=== PATIENT | male | born 1935 | race Caucasian/White ===

== ENCOUNTER 2019-10-08 22:26 | Emergency (ER) | payer MEDICARE, OTHER, SELFPAY ==
[2019-10-08 22:28] VITALS: BP 162/99; PULSE 101; RESP 16; TEMP 36.8; O2SAT 94; BMI 31.4
[2019-10-08 23:16] VITALS: BP 138/71; BP 141/74
--- NOTE | 2019-10-08 23:17 | ED.DCSUM_ITS ---
History of Present Illness Chief Complaint: Hypertension Informant: Patient Onset: Today Narrative: Patient is an 83-year-old male with medical history significant for [id number] diabetes that presents to the emergency department concern for elevated blood pressure. The patient has no history of hypertension. He bought a blood pressure wrist cuff from the pharmacy. He states that he took his blood pressure tonight because his also took hers. He states that it read 235/222. He was totally asymptomatic. He states he took it multiple times and both systolic and diastolic were in the 200s. He states that normally, his blood pressure runs about 1 20-1 30. He has had no chest pain, shortness of breath, headache, leg swelling, or other systemic symptoms. Prior similar symptoms: No Recent Illness/Hospitalization: No Past Medical History - Allergies and Home Meds Allergies/Adverse Reactions: Allergies hydromorphone [From Dilaudid] Allergy (Verified 10/08/19 22:31) NEEDS FOLLOW-UP lisinopril Allergy (Verified 10/08/19 22:32) Angioedema Penicillins Allergy (Verified 10/08/19 22:31) Rash Primary Care Physician: Julia Zayas,Out of [Primary Care Provider] - Prior records reviewed: Yes Past Medical History: - - Diabetes Surgical History: noncontributory Review of Systems General: Denies: Chills, Fever, Sweats Eyes: Denies: Visual changes - bilaterally, Diplopia ENT: Denies: Rhinorrhea, Sore throat Cardiovascular: Denies: Chest pain, Palpitations Respiratory: Denies: Dyspnea, Cough, Dyspnea on exertion Gastrointestinal: Denies: Abdominal pain, Nausea, Vomiting, Diarrhea, Melena, Hematochezia Genitourinary: Denies: Dysuria, Hematuria, Frequency Musculoskeletal: Denies: Back pain, Extremity Pain Skin: Denies: Rash, Wounds Neurological: Denies: Headache, Weakness, Numbness Physical Exam Vital Signs/Narrative: Vital Signs Temp Pulse Resp BP Pulse Ox 10/08/19 23:16 138/71 H 10/08/19 22:28 98.3 F 101 H 16 162/99 H 94 Inital Vital Signs reviewed: Yes General: Well nourished, Well developed, No Acute Distress Head: Normocephalic, Atraumatic Eyes: Perrl, EOMI ENT: Moist mucous membranes, No rhinorrhea Neck: Supple, Nontender Cardiovascular: Regular rate, Regular rhythm, No murmurs Respiratory: No distress, CTA bilaterally, Chest nontender Abdomen: Soft, Nontender, Nondistended, Normal bowel sounds Back: Nontender, Normal Inspection Extremities: Nontender, No edema Skin: Normal color, No rash Neurological: Alert, Oriented x3, Cranial nerves II-XII grossly intact, Normal Strength, Normal Sensation Psychological: Normal affect, Normal Mood Diagnostic/Tx/Re-eval - Medical Decision Making The patient presents due to concern for elevated blood pressure on a portable wrist cuff. I did repeat it. His blood pressure was obviously elevated with this cuff. He was totally asymptomatic no. My suspicion is for cuff malfunction. Manual blood pressures were obtained of both arms. He was 141 systolic on the left, 138 systolic on the right. I do feel he has mild hypertension just because he is in the hospital and concerned about his blood pressure. He has absolutely no symptoms. The patient is agreeable to not using this cuff anymore. He is going to follow-up with his doctor in a week or return with any worsening symptoms. Impression 1. Normal blood pressure ED Disposition - Plan for ED Patient: Instructions: Taking Your Blood Pressure Referrals: [facility] Doctor,Out of [Primary Care Provider] -
== END 2019-10-08 23:23 | disposition home or self-care (01) ==
LOC: ED 23:20
PROVIDERS: Emergency Provider Emergency Medicine; PCP Family Medicine
DX: I10 Essential (primary) hypertension (principal)
CPT/HCPCS: 99282

== ENCOUNTER 2020-05-17 09:04 | Emergency (ER) | payer MEDICARE, OTHER, SELFPAY ==
[2020-05-17 09:06] VITALS: BP 164/70; PULSE 86; RESP 14; TEMP 35.5; O2SAT 95; BMI 31.2
[2020-05-17 09:27] VITALS: PULSE 81; RESP 18; O2SAT 95
--- NOTE | 2020-05-17 09:45 | EKG12_ITS ---
Test Reason : NAUSEA/VOMITING Blood Pressure : / mmHG Vent. Rate : 079 BPM Atrial Rate : 079 BPM P-R Int : 246 ms QRS Dur : 102 ms QT Int : 382 ms P-R-T Axes : 043 -45 063 degrees QTc Int : 438 ms Sinus rhythm with 1st degree A-V block Left anterior fascicular block Minimal voltage criteria for LVH, may be normal variant Abnormal ECG Confirmed by ERNESTO CABELLO, BERT ([id number]), index editor PARMINDER BATES ([id number]) on 05/19/2020 10:32:14 AM Referred By: GENARO Confirmed By:BERT OROZCO MD
[2020-05-17] MEDS: Ondansetron 4 MG/2 ML Vial IV (09:52)
[2020-05-17] MEDS: 0.9% Normal Saline 1,000 ML 1000 ML IV (09:52)
[2020-05-17 10:28] LABS: Absolute Lymphocyte Count 2.16 X10^3/uL (0.83-4.51); Absolute Neutrophil Count 8.6 X10^3/uL (2.0-7.7); Basophil# 0.03 X10^3/uL; Basophil% 0.3 % (0-1); Eosinophil# 0.05 X10^3/uL; Eosinophils% 0.4 % (0-5); Hematocrit 41.4 % (40-54); Lymphocyte # 2.16 X10^3/ul (4.0); Lymphocyte % 18.7 % (19-41); Mean Corp Hgb Conc 31.4 g/dL (32-36); Mean Corpuscular Hgb 26.4 pg (27.0-32.0); Mean Corpuscular Volume 84.1 fL (80-94); Mean Platelet Vol. 11.1 fl (6.2-12.0); Monocyte# 0.62 X10^3/uL; Monocyte% 5.4 % (0-10); NRBC Flagged by Analyzer 0 % (0-5); Neutrophil # 8.63 X10^3/uL (2.7-7.7); Neutrophil % 74.5 % (47-70); Platelet Count 393 K/mm3 (150-450); RBC Distribution Width CV 15.9 % (11.6-14.6); RBC Distribution Width SD 48.7 fl (35.1-43.9); Red Blood Count 4.92 M/mm3 (4.6-6.2); White Blood Count 11.6 K/mm3 (4.4-11.0)
[2020-05-17 10:57] LABS: ALB/GLOB Ratio 0.9 RATIO (0.9-2.4); AST(SGOT) 31 U/L (15-37); Alanine Aminotransfer ALT/SGPT 54 U/L (16-61); Albumin, Serum 3.8 g/dL (3.2-5.0); Alkaline Phosphatase 39 U/L (45-117); Anion Gap 10 (5-15); BUN 17 mg/dL (7-18); BUN/Creat Ratio 11.2 RATIO (10-20); Calcium,Total 9.8 mg/dL (8.5-10.1); Chloride 104 mmol/L (98-107); Creatinine, Serum 1.52 mg/dL (0.70-1.30); EST Glomerular Filtration Rate 47 mL/min (>60); Est Glom Filt Rate - Afr Amer 57 mL/min (>60); Estimated Creatinine Clearance 41.61 ml/min; Globulin 4.2 g/dL (2.2-4.2); Glucose 196 mg/dL (74-106); Lipase 2796 U/L (73-393); Potassium 3.9 mmol/L (3.5-5.1); Sodium Level 138 mmol/L (136-145)
--- NOTE | 2020-05-17 11:13 | CT_ITS ---
STUDY: CT ABDOMEN AND PELVIS WITH CONTRAST REASON FOR EXAM: Male, 84 years old. vomiting RADIATION DOSAGE (If Supplied By Facility): CTDIvol = ( 16.69 ) mGy, DLP = ( 1450.40 ) mGycm TECHNIQUE: Transaxial images were obtained from the dome of the diaphragm to the symphysis pubis without oral contrast. 100 ML ISOVUE 370 was administered. Sagittal and coronal images were reconstructed. Individualized dose optimization techniques were used for this CT. COMPARISON: None. FINDINGS: The visualized lung bases are unremarkable. The visualized portions of the heart are within normal limits. Normal liver. There are surgical clips in the gallbladder fossa consistent with a prior cholecystectomy. Normal spleen. There is diffuse enlargement of the pancreas with sena-pancreatic edema suggesting acute pancreatitis. No loculated fluid collection to suggest pseudocyst or abscess. Normal bilateral adrenal glands. 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 1.5 cm exophytic cyst of the posterior aspect of the right kidney. Suspect bilateral nonobstructing renal stones. No hydronephrosis, ureteral stone, ureteral dilatation. Normal visualized stomach. Normal small intestine. There are multiple colonic diverticula consistent with diverticulosis. The appendix is visualized and appears normal. Normal abdominal aorta. Normal inferior vena cava. Normal retroperitoneum. Normal urinary bladder. Normal abdominal wall. Normal osseous structures. CT/Abdomen/Pelvis W IV Cont ONLY IMPRESSION: Suspect mild acute pancreatitis. Electronically Signed: Edil Ortiz MD at 12:02 EST Tel , Service support ,
[2020-05-17] MEDS: 0.9% Normal Saline 1,000 ML 999 ML IV (11:15)
--- NOTE | 2020-05-17 11:15 | ED.DCSUM_ITS ---
History of Present Illness Chief Complaint: Nausea/Vomiting/Diarrhea Informant: Patient, Significant Other - Abdominal Pain/Flank Pain Onset: Days Context: Gradual Onset Timing: Continuous - Nausea/Vomiting/Emesis GI Symptom: Nausea, Vomiting Narrative: Patient is an 84-year-old male presenting with persistent nausea that is now progressed into vomiting. Patient states 4 to 5 days ago he started developed nausea. He did not eat much. Last night patient self-induced vomiting and felt better for about an hour. He made himself vomit again. He notes overnight he did not sleep well. This morning he had a spontaneous episode of vomiting. He states which is water and bile. As he is continue to feel weak and not able to sip water and hemanth antoni he went to the urgent care. There his heart rate was 131 and he appeared dehydrated so it is recommended he come to the ER for further evaluation. Patient denies any associate abdominal pain, chest pain or difficulty breathing. He has had no reported fever or chills. He currently just feels queasy and dehydrated. Patient's had a hernia gallbladder surgery in the past. No other complaints at this time. Past Medical History - Allergies and Home Meds Allergies/Adverse Reactions: Allergies hydromorphone [From Dilaudid] Allergy (Verified 05/17/20 09:06) NEEDS FOLLOW-UP lisinopril Allergy (Verified 05/17/20 09:06) Angioedema Penicillins Allergy (Verified 05/17/20 09:06) Rash Primary Care Physician: Taye Lyons MD [Primary Care Provider] - Past Medical History: - - Diabetes, hyperlipidemia, GERD Surgical History: cholecystectomy, herniorrhaphy Lives: Spouse/ Significant Other Smoking Status: Current every day smoker Review of Systems General: Denies: Chills, Fever, Sweats Eyes: Denies: Visual changes - bilaterally, Diplopia ENT: Denies: Rhinorrhea, Sore throat Cardiovascular: Denies: Chest pain, Palpitations Respiratory: Denies: Dyspnea, Cough, Dyspnea on exertion Gastrointestinal: Reports: Nausea, Vomiting. Denies: Abdominal pain, Diarrhea, Melena, Hematochezia Genitourinary: Denies: Dysuria, Hematuria, Frequency Musculoskeletal: Denies: Back pain, Extremity Pain Skin: Denies: Rash, Wounds Neurological: Denies: Headache, Weakness, Numbness Physical Exam Vital Signs/Narrative: Vital Signs Temp Pulse Resp BP Pulse Ox 05/17/20 09:27 81 18 95 05/17/20 09:06 96 F L 86 14 164/70 H 95 Inital Vital Signs reviewed: Yes General: Well nourished, Well developed, No Acute Distress Head: Normocephalic, Atraumatic Eyes: Perrl, EOMI ENT: No rhinorrhea, Dry mucous membranes Neck: Supple, Nontender, No JVD Cardiovascular: Regular rate, Regular rhythm, No murmurs Respiratory: No distress, CTA bilaterally, Chest nontender Abdomen: Soft, Nontender, Nondistended, Normal bowel sounds. Negative for: Guarding, Rebound tenderness Back: Nontender, Normal Inspection Extremities: Nontender, No edema Skin: Normal color, No rash Neurological: Alert, Oriented x3, Cranial nerves II-XII grossly intact, Normal Strength, Normal Sensation Psychological: Normal affect, Normal Mood Diagnostic/Tx/Re-eval Clinical Impression(s) from Imaging Studies Abdomen/Pelvis CT 05/17/20 11:13 IMPRESSION: Suspect mild acute pancreatitis. Electronically Signed: Edil Ortiz MD at 12:02 EST Tel , Service support , Laboratory Data 05/17/20 05/17/20 05/17/20 09:15 09:15 12:15 WBC 11.6 H RBC 4.92 Hgb 13.0 Hct 41.4 MCV 84.1 MCH 26.4 L MCHC 31.4 L RDW Std Deviation 48.7 H RDW Coeff of Abdulaziz 15.9 H Plt Count 393 MPV 11.1 Immature Gran % (Auto) 0.700 Neut % (Auto) 74.5 H Lymph % (Auto) 18.7 L [place] % (Auto) 5.4 Eos % (Auto) 0.4 Baso % (Auto) 0.3 Absolute Neuts (auto) 8.6 H Absolute Lymphs (auto) 2.16 Nucleated RBC % 0 Sodium 138 Potassium 3.9 Chloride 104 Carbon Dioxide 24.0 Anion Gap 10 BUN 17 Creatinine 1.52 H Estim Creat Clear Calc 41.61 Est GFR (MDRD) Af Amer 57 L Est GFR (MDRD) Non-Af 47 L BUN/Creatinine Ratio 11.2 Glucose 196 H Calcium 9.8 Total Bilirubin 0.60 AST 31 ALT 54 Alkaline Phosphatase 39 L Troponin I < 0.015 Total Protein 8.0 Albumin 3.8 Globulin 4.2 Albumin/Globulin Ratio 0.9 Lipase 2796 H Urine Color Yellow Urine Clarity Clear Urine pH 5.0 Ur Specific [place] 1.015 Urine Protein 15 H Urine Glucose (UA) Normal Urine Ketones 5 H Urine Occult Blood Negative Urine Nitrite Negative Urine Bilirubin Negative Urine Urobilinogen Normal Ur Leukocyte Esterase Negative Urine RBC 0 SEEN Urine WBC 0 SEEN Ur Squamous Epith Cells 0 SEEN Urine Bacteria 0 SEEN Urine Mucus 0 SEEN - Rhythm Strip Rhythm Strip: Sinus Rhythm Rate: 79 Ectopy: None - EKG Initial EKG Interpretation: Sinus Rhythm, - - Normal sinus rhythm at a rate of 79 with first-degree AV block ID interval 246 QRS 102 Minimal voltage criteria for LVH Left anterior fascicular block Normal ST segments - Medical Decision Making Evaluated for concerns of dehydration, tachycardia at a urgent care and a couple days of nausea no vomiting. He denies any associate abdominal pain. Patient physical exam is pretty benign. He appears mildly dehydrated. He is given IV fluids. Lipase is elevated. On repeat exam patient does not have tenderness in his epigastric region. Will obtain CT of the abdomen pelvis for further evaluation of pancreatitis and make sure there is not an obstructive process causing it. Patient is given a second liter of IV fluids. He is feeling much better. He is also given IV Zofran initially. CT is consistent with mild pancreatitis. As patient symptoms are mild and he is tolerating p.o. he is a candidate for outpatient treatment. Patient states he does not want to be hospitalized. He will be discharged home to follow-up with his PCP tomorrow. He already has an appointment scheduled. He is given a prescription for Zofran. He is counseled on return precautions. Patient remains hemodynamically stable in the emergency room. He does have intermittent desaturation of 88 to 89% on pulse ox. Patient states that is normal for him. Patient then spontaneously will go up to 91% with good waveform. He will follow up about this with his PCP tomorrow as well. He notes he does smoke cigars daily. He likely has some undiagnosed COPD versus mucous plugging. ED Disposition - Plan for ED Patient: Disposition: Home or Assisted Living Diagnosis: Pancreatitis Instructions: ED Pancreatitis, ED Clear Liquid Diet Prescriptions: Ondansetron [Zofran Odt] 4 mg PO Q8H PRN PRN #10 tab PRN Reason: Nausea Prescription Printed Referrals: Taye Lyons MD [Primary Care Provider] - Additional Instructions: Please adhere to a clear liquid diet for the next 24 hours. Return the emergency room with any worsening symptoms especially difficulty breathing or worsening abdominal pain. Please make sure he follow-up with your primary care doctor tomorrow. Slowly advance your diet after tomorrow as tolerated.
[2020-05-17 12:19] LABS: Bacteria 0 SEEN /hpf (None Seen); Mucous, Urine 0 SEEN /hpf (<or=2+); Red Blood Cells-Urine 0 SEEN /hpf (0-5); Squamous Epithelial Cells - UA 0 SEEN /hpf (0-5); White Blood Cells 0 SEEN /hpf (0-5)
[2020-05-17 12:21] LABS: Color, Urine Yellow (Yellow); Glucose, Dipstick Normal (Normal); Ketone-Dipstick 5 mg/dl (Negative); Leukocyte Esterase-Dipstick Negative /ul (Negative); Nitrite-Dipstick Negative (Negative); Occult Blood-Urine Negative /ul (Negative); Protein-Dipstick 15 mg/dl (Negative); Specific Gravity, Urine 1.015 (1.002-1.030); Urine Bilirubin Dipstick Negative (Negative); Urine Clarity Clear (Clear); Urine Urobilinogen Normal (Normal)
[2020-05-17 12:25] VITALS: BP 124/83; PULSE 79; RESP 18; O2SAT 96
[2020-05-17 13:35] VITALS: BP 145/56; PULSE 77; RESP 18; O2SAT 96
== END 2020-05-17 13:36 | disposition home or self-care (01) ==
PROVIDERS: Emergency Provider Emergency Medicine; PCP Family Medicine
DX: K85.90 Acute pancreatitis without necrosis or infection, unspecified (principal); F17.200 Nicotine dependence, unspecified, uncomplicated; E11.9 Type 2 diabetes mellitus without complications; E78.5 Hyperlipidemia, unspecified; K21.9 Gastro-esophageal reflux disease without esophagitis; Z90.49 Acquired absence of other specified parts of digestive tract; Z79.4 Long term (current) use of insulin; Z79.82 Long term (current) use of aspirin
CPT/HCPCS: 74177; 80053; 81001; 83690; 84484; 85025; 93005; 96361; 96374; 99283; J7030; Q9967; A4216; J2405

== ENCOUNTER → 2021-01-19 09:19 | Outpatient (CLI) | payer MEDICARE, OTHER, SELFPAY ==
--- NOTE | 2021-01-19 09:22 | RAD_ITS ---
STUDY: X-RAY - ABDOMEN/PELVIS REASON FOR EXAM: Male, 85 years old. Diarrhea. TECHNIQUE: Upright and supine abdomen 6 images. COMPARISON: CT abdomen and pelvis May 17, 2020. FINDINGS: Normal visualized lung bases. There is an unremarkable bowel gas pattern. There is no demonstrated free abdominal air. The visualized liver, spleen and kidneys are grossly normal in size and morphology. 2 mm calcifications overlying both kidneys compatible with renal calculi noted on the prior CT abdomen and pelvis. Normal visualized osseous structures. Surgical clips are in upper quadrant. RAD/Abd Inc Decub and/or Erect IMPRESSION: Normal bowel gas pattern without evidence of obstruction. Small bilateral renal calculi. Electronically Signed: Danish Garza MD at 23:22 EDT , Service support ,
[2021-01-19 12:46] LABS: CRP 8.22 mg/L (0.0-3.0)
[2021-01-20 17:07] LABS: Endomysial Antibody IgA Negative (Negative)
[2021-01-21 15:56] LABS: Fats, Neutral Normal (.); Fats, Total Normal (.)
[2021-01-21 16:40] LABS: Immunoglobulin A 189 mg/dL (61-437); t-Transglutaminase IgA <2 U/mL (0-3)
== END ==
PROVIDERS: PCP Family Medicine; Referring Provider Internal Medicine Gastroenterology; Visit Provider Internal Medicine Gastroenterology
DX: R19.7 Diarrhea, unspecified (principal)
CPT/HCPCS: 36415; 74019; 82705; 82784; 83516; 86140; 86255

== ENCOUNTER 2021-06-17 12:38 | Emergency (ER) | payer MEDICARE, OTHER, SELFPAY ==
[2021-06-17 12:39] VITALS: BP 156/75; PULSE 84; RESP 17; TEMP 35.6; O2SAT 94; BMI 31.3
--- NOTE | 2021-06-17 13:25 | EDS_ITS ---
HPI <Dr. Radha Perez MD - Last Filed: 06/17/21 14:42> History of Present Illness Chief Complaint: Complaint <TONIA RED - Last Filed: 06/17/21 14:38> History of Present Illness Informant: patient Onset/Context/Timing Onset: Days (2) Context: Sudden Onset Narrative Narrative: Patient presents secondary to burning with urination and foul- smelling urine for 2 days. Patient otherwise denies pain, including flank pain or abdominal pain. Patient denies fever, chills, and body aches. Patient denies urinary frequency or change in urine color. Patient does report feeling foggy and describes this as difficulty concentrating. Patient states he presents to the ED due to his remote history of urosepsis. Prior similar symptoms: Yes (Remote history of urosepsis.) Recent Illness/Hospitalization: Yes (Recent ER visit the end of April for pa ncreatitis.) [facility] <Dr. Radha Perez MD - Last Filed: 06/17/21 14:42> [facility] Medical History (Updated 06/17/21 @ 14:[address] Radha Perez MD) Diabetes GERD (gastroesophageal reflux disease) High cholesterol HTN (hypertension) Home Medications aspirin 81 mg PO DAILY 05/17/20 [History Last Taken Unknown] fenofibrate micronized 200 mg PO DAILY 05/17/20 [History Last Taken Unknown] ferrous sulfate 325 mg PO DAILY@0800 05/17/20 [History Last Taken Unknown] glimepiride 1 mg PO BID 05/17/20 [History Last Taken Unknown] insulin aspart U-100 6 unit SQ TID 05/17/20 [History Last Taken Unknown] insulin glargine 30 unit SQ QHS 05/17/20 [History Last Taken Unknown] lovastatin 20 mg PO DAILY 05/17/20 [History Last Taken Unknown] metformin 1,000 mg PO BID 05/17/20 [History Last Taken Unknown] omeprazole 40 mg PO DAILY 05/17/20 [History Last Taken Unknown] amlodipine 5 mg PO DAILY 06/17/21 [History Last Taken Unknown] ciprofloxacin HCl 500 mg PO BID #14 tab 06/17/21 [Rx Last Taken Unknown] Allergy/AdvReac Type Severity Reaction Status Date / Time hydromorphone [From Dilaudid] Allergy NEEDS Verified 06/17/21 12:38 FOLLOW-UP lisinopril Allergy Angioedema Verified 06/17/21 12:38 Penicillins Allergy Rash Verified 06/17/21 12:38 Social History Smoking Status: Current every day smoker tobacco type: cigars <TONIA RED - Last Filed: 06/17/21 14:38> ROS ED Constitutional Constitutional ED: Denies chills, fever(s), sweats or weight loss Eyes Eyes: Denies blurry vision, change in vision or diplopia ENT ENT ED: Denies ear pain or sore throat Cardiovascular Cardiovascular: Denies chest pain, palpitations or racing heartbeat Respiratory/Chest Respiratory/Chest: Denies cough or dyspnea Gastrointestinal Gastrointestinal: Denies abdominal pain, constipation, diarrhea, melena, nausea or vomiting Genitourinary Genitourinary ED: Reports dysuria and other Details: Foul-smelling urine. ; Denies hematuria or urinary frequency Musculoskeletal Musculoskeletal: Denies arthralgias or myalgias Integumentary Denies rash Neurologic Neurologic: Reports other Details: Reports feeling foggy. ; Denies headache(s) or weakness Psychiatric Psychiatric: Denies anxiety or depression Endocrine Endocrinology: Denies polydipsia, polyphagia or polyuria EXAM <Dr. Radha Perez MD - Last Filed: 06/17/21 14:42> Physical Exam Const Vital Signs: 06/17/21 12:39 Temperature 96.1 F L Temperature Source Temporal Pulse Rate 84 Respiratory Rate 17 Blood Pressure 156/75 H Blood Pressure Mean 102 Pulse Ox 94 Oxygen Delivery Method Room Air <TONIA RED - Last Filed: 06/17/21 14:38> Physical Exam Const Vital Signs: 06/17/21 12:39 Temperature 96.1 F L Temperature Source Temporal Pulse Rate 84 Respiratory Rate 17 Blood Pressure 156/75 H Blood Pressure Mean 102 Pulse Ox 94 Oxygen Delivery Method Room Air Positive well nourished and well developed General Appearance ED: well developed HEENT Reports moist mucous membranes Negative for trauma or tenderness Eyes PERRL and EOMs intact bilaterally Neck no lymphadenopathy and supple Chest Wall inspection of chest normal and palpation of chest normal Resp normal respiratory effort and clear to auscultation bilaterally Cardio regular rate, regular rhythm and no murmurs GI normal to inspection, nondistended, normoactive bowel sounds Palpation: soft Narrative: Negative for suprapubic tenderness. Back/Spine no CVA tenderness Neuro oriented x3 and CN's II-XII intact bilaterally Sensorium / Orientation: alert Motor Exam: strength 5/5 throughout Psych mental status grossly normal Skin no rashes or lesions noted [facility] <Dr. Radha Perez MD - Last Filed: 06/17/21 14:42> [facility] Lab Data Labs: Laboratory Results - last 24 hr 06/17/21 06/17/21 06/17/21 13:16 13:16 13:50 WBC 11.1 H RBC 4.52 L Hgb 12.1 L Hct 37.4 L MCV 82.7 MCH 26.8 L MCHC 32.4 RDW Std Deviation 47.9 H RDW Coeff of Abdulaziz 15.9 H Plt Count 344 MPV 11.0 Immature Gran % (Auto) 0.700 Neut % (Auto) 71.4 H Lymph % (Auto) 18.8 L Sully % (Auto) 7.0 Eos % (Auto) 1.7 Baso % (Auto) 0.4 Absolute Neuts (auto) 7.9 H Absolute Lymphs (auto) 2.09 Nucleated RBC % 0 Sodium 137 Potassium 3.9 Chloride 105 Carbon Dioxide 27.0 Anion Gap 5 BUN 15 Creatinine 1.23 Estim Creat Clear Calc 50.52 Est GFR (MDRD) Af Amer 72 Est GFR (MDRD) Non-Af 60 BUN/Creatinine Ratio 12.2 Glucose 89 Calcium 8.8 Urine Color Yellow Urine Clarity Clear Urine pH 6.0 Ur Specific [place] 1.010 Urine Protein 15 H Urine Glucose (UA) Normal Urine Ketones Negative Urine Occult Blood 25 H Urine Nitrite Positive H Urine Bilirubin Negative Urine Urobilinogen Normal Ur Leukocyte Esterase 500 H Urine RBC 0 SEEN Urine WBC 10-25 SEEN Ur Squamous Epith Cells 0 SEEN Urine Bacteria 2+ Urine Mucus 0 SEEN Treatment and Re-Evaluation Narrative: Patient seen and evaluated with [employer] student. I personally interviewed and examined the patient. I was involved in all aspects of patient's orders, interpretation of results, and treatment. Patient presents secondary to foul-smelling urine with slight dysuria. He denies fever or chills. He does have a history of urosepsis and states he was told in the past not to wait so long into the course of his infection before he is evaluated. Patient sitting upright in bed no acute distress. He is nontoxic-appearing. Head and neck examination unremarkable. Heart is regular rate and rhythm. Lung sounds are clear. Abdomen is soft and nontender. No CVA tenderness. Lab work reviewed and reveals mild white count of 11.1. No left shift. Chemistry studies unremarkable. Urinalysis does show 10-25 white cells with 2+ bacteria and positive nitrites. Blood and urine cultures have been sent. Patient be treated with a course of Cipro. Return instructions provided. <TONIA RED - Last Filed: 06/17/21 14:38> [facility] MDM Narrative Medical decision making narrative: CBC, BMP, blood cultures ordered. Urinalysis and urine culture also ordered Lab Data Attestation: I reviewed the patient's lab results. Labs: Laboratory Results - last 24 hr 06/17/21 06/17/21 06/17/21 13:16 13:16 13:50 WBC 11.1 H RBC 4.52 L Hgb 12.1 L Hct 37.4 L MCV 82.7 MCH 26.8 L MCHC 32.4 RDW Std Deviation 47.9 H RDW Coeff of Abdulaziz 15.9 H Plt Count 344 MPV 11.0 Immature Gran % (Auto) 0.700 Neut % (Auto) 71.4 H Lymph % (Auto) 18.8 L Sully % (Auto) 7.0 Eos % (Auto) 1.7 Baso % (Auto) 0.4 Absolute Neuts (auto) 7.9 H Absolute Lymphs (auto) 2.09 Nucleated RBC % 0 Sodium 137 Potassium 3.9 Chloride 105 Carbon Dioxide 27.0 Anion Gap 5 BUN 15 Creatinine 1.23 Estim Creat Clear Calc 50.52 Est GFR (MDRD) Af Amer 72 Est GFR (MDRD) Non-Af 60 BUN/Creatinine Ratio 12.2 Glucose 89 Calcium 8.8 Urine Color Yellow Urine Clarity Clear Urine pH 6.0 Ur Specific [place] 1.010 Urine Protein 15 H Urine Glucose (UA) Normal Urine Ketones Negative Urine Occult Blood 25 H Urine Nitrite Positive H Urine Bilirubin Negative Urine Urobilinogen Normal Ur Leukocyte Esterase 500 H Urine RBC 0 SEEN Urine WBC 10-25 SEEN Ur Squamous Epith Cells 0 SEEN Urine Bacteria 2+ Urine Mucus 0 SEEN Treatment and Re-Evaluation Narrative: Lab work and urinalysis reviewed. White blood cell count at 11.1. CBC otherwise unremarkable. BMP reveals normal electrolytes and kidney function. Urinalysis shows clear urine positive for nitrites, leukocyte esterase, WBCs, bacteria. On reexam, patient continues to appear comfortable. Results reviewed with patient and his at bedside. Patient aware he will be discharged home with prescription for Cipro and physician for follow-up. Reviewed return instructions with patient and understanding verbalized. Discharge Plan Triage Chief Complaint: Complaint ED Provider: Radha Perez Dx/Rx/DC Orders Clinical Impression: UTI (urinary tract infection) Instructions: ED Urinary Tract Infections in Men Prescriptions: New ciprofloxacin HCl 500 mg tablet 500 mg PO BID Qty: 14 RF: 0 No Action fenofibrate micronized 200 MG capsule 200 mg PO DAILY RF: 0 aspirin 81 MG tablet,delayed release (DR/EC) 81 mg PO DAILY RF: 0 glimepiride 1 MG tablet 1 mg PO BID RF: 0 insulin aspart U-100 100 UNIT/ML solution 6 unit SQ TID RF: 0 ferrous sulfate 325 MG tablet 325 mg PO DAILY@0800 RF: 0 metformin 1,000 MG tablet 1,000 mg PO BID RF: 0 lovastatin 20 MG tablet 20 mg PO DAILY RF: 0 insulin glargine 100 UNIT/ML insulin pen 30 unit SQ QHS RF: 0 omeprazole 20 MG tablet,delayed release (DR/EC) 40 mg PO DAILY RF: 0 amlodipine 5 mg tablet 5 mg PO DAILY RF: 0 Primary Care Provider: Taye Lyons Referrals: Taye Lyons MD [Primary Care Provider] - 1 Week Disposition Disposition: Home, Self Care
[2021-06-17 13:33] LABS: Absolute Lymphocyte Count 2.09 X10^3/uL (0.83-4.51); Absolute Neutrophil Count 7.9 X10^3/uL (2.0-7.7); Basophil# 0.04 X10^3/uL; Basophil% 0.4 % (0-1); Eosinophil# 0.19 X10^3/uL; Eosinophils% 1.7 % (0-5); Hematocrit 37.4 % (40-54); Hemoglobin 12.1 g/dL (13.0-16.5); Lymphocyte # 2.09 X10^3/ul (0.83-4.51); Lymphocyte % 18.8 % (19-41); Mean Corp Hgb Conc 32.4 g/dL (32-36); Mean Corpuscular Hgb 26.8 pg (27.0-32.0); Mean Corpuscular Volume 82.7 fL (80-94); Monocyte# 0.78 X10^3/uL; NRBC Flagged by Analyzer 0 % (0-5); Neutrophil # 7.92 X10^3/uL (2.7-7.7); Neutrophil % 71.4 % (47-70); Platelet Count 344 K/mm3 (150-450); RBC Distribution Width CV 15.9 % (11.6-14.6); RBC Distribution Width SD 47.9 fl (35.1-43.9); Red Blood Count 4.52 M/mm3 (4.6-6.2); White Blood Count 11.1 K/mm3 (4.4-11.0)
[2021-06-17 13:44] LABS: Anion Gap 5 (5-15); BUN 15 mg/dL (7-18); BUN/Creat Ratio 12.2 RATIO (10-20); Calcium,Total 8.8 mg/dL (8.5-10.1); Chloride 105 mmol/L (98-107); Creatinine, Serum 1.23 mg/dL (0.70-1.30); EST Glomerular Filtration Rate 60 mL/min (>60); Est Glom Filt Rate - Afr Amer 72 mL/min (>60); Estimated Creatinine Clearance 50.52 ml/min; Glucose 89 mg/dL (74-106); Potassium 3.9 mmol/L (3.5-5.1); Sodium Level 137 mmol/L (136-145)
[2021-06-17 14:03] LABS: Mucous, Urine 0 SEEN /hpf (<or=2+); Red Blood Cells-Urine 0 SEEN /hpf (0-5); Squamous Epithelial Cells - UA 0 SEEN /hpf (0-5)
[2021-06-17 14:07] LABS: Color, Urine Yellow (Yellow); Glucose, Dipstick Normal (Normal); Ketone-Dipstick Negative (Negative); Leukocyte Esterase-Dipstick 500 /ul (Negative); Nitrite-Dipstick Positive (Negative); Occult Blood-Urine 25 /ul (Negative); Protein-Dipstick 15 mg/dl (Negative); Urine Bilirubin Dipstick Negative (Negative); Urine Clarity Clear (Clear); Urine Urobilinogen Normal (Normal)
[2021-06-17 14:17] LABS: White Blood Cells 10-25 SEEN /hpf (0-5)
[2021-06-17 14:18] LABS: Bacteria 2+ /hpf (None Seen)
[2021-06-17] MEDS: Ciprofloxacin 500 MG Tablet PO (14:45)
[2021-06-17 14:49] VITALS: BP 135/64; PULSE 77; RESP 18; O2SAT 96
== END 2021-06-17 14:50 | disposition home or self-care (01) ==
PROVIDERS: Emergency Provider Emergency Medicine; PCP Family Medicine; Visit Provider Emergency Medicine
DX: N39.0 Urinary tract infection, site not specified (principal); E11.9 Type 2 diabetes mellitus without complications; Z79.4 Long term (current) use of insulin; E78.00 Pure hypercholesterolemia, unspecified; F17.290 Nicotine dependence, other tobacco product, uncomplicated; K21.9 Gastro-esophageal reflux disease without esophagitis; Z79.899 Other long term (current) drug therapy; Z79.84 Long term (current) use of oral hypoglycemic drugs; Z79.82 Long term (current) use of aspirin
CPT/HCPCS: 80048; 81001; 85025; 87040; 87077; 87086; 87088; 87186; 99284; A4216

== ENCOUNTER 2022-02-10 19:23 | Emergency (ER) | payer MEDICARE, OTHER, SELFPAY ==
[2022-02-10 19:24] VITALS: BP 146/64; PULSE 79; RESP 16; TEMP 36.6; O2SAT 97; BMI 29.2
--- NOTE | 2022-02-10 19:43 | EDS_ITS ---
HPI History of Present Illness HPI Narrative: 86-year-old male past medical history of diabetes presents with his for injury to his right second toe that he sustained almost 12 hours ago. He states that he came downstairs as his was cooking Thanksgiving day dinner. She had open cans and other food items and had put them in a garbage bag to throw them away at a later time. He came around the corner and hit his right foot, mainly his second toe on the bag. He cut his right toe on an open can lead. He states his tetanus immunization is current from 2015. He denies other injury. He washed the area with peroxide a few times, and also put Aquaphor on the area. He presents for evaluation of a laceration to his right second toe. Chief Complaint: Laceration [facility] Medical History Diabetes GERD (gastroesophageal reflux disease) High cholesterol HTN (hypertension) Home Medications aspirin 81 mg tablet,delayed release 81 mg PO DAILY 05/17/20 [History Last Taken Unknown] fenofibrate micronized 200 mg capsule 200 mg PO DAILY 05/17/20 [History Last Taken Unknown] ferrous sulfate 325 mg (65 mg iron) tablet 325 mg PO DAILY@0800 05/17/20 [History Last Taken Unknown] glimepiride 1 mg tablet 1 mg PO BID 05/17/20 [History Last Taken Unknown] insulin aspart U-100 100 unit/mL subcutaneous solution 6 unit SQ TID 05/17/20 [History Last Taken Unknown] insulin glargine 100 unit/mL (3 mL) subcutaneous pen 30 unit SQ QHS 05/17/20 [History Last Taken Unknown] lovastatin 20 mg tablet 20 mg PO DAILY 05/17/20 [History Last Taken Unknown] metformin 1,000 mg tablet 1,000 mg PO BID 05/17/20 [History Last Taken Unknown] omeprazole 20 mg tablet,delayed release 40 mg PO DAILY 05/17/20 [History Last Taken Unknown] amlodipine 5 mg tablet 5 mg PO DAILY 06/17/21 [History Last Taken Unknown] ciprofloxacin HCl 500 mg tablet 500 mg PO BID #14 tabs 06/17/21 [Rx Last Taken Unknown] Allergy/AdvReac Type Severity Reaction Status Date / Time hydromorphone [From Dilaudid] Allergy NEEDS Verified 02/10/22 19:25 FOLLOW-UP lisinopril Allergy Angioedema Verified 02/10/22 19:25 Penicillins Allergy Rash Verified 02/10/22 19:25 Social History Smoking Status: Current every day smoker tobacco type: cigars ROS ROS ED ROS Narrative Constitutional: No fever, no chills. HEENT: No sore throat. No neck pain. No loss of vision. No rhinorrhea. Cardiovascular: No chest pain. No palpitations. No pedal edema. Respiratory: No cough, no shortness of breath. Abdominal: No abdominal pain. No nausea. No vomiting. Genitourinary: No dysuria. No hematuria. Musculoskeletal: No myalgias. No arthralgias. Neurologic: No headaches. No dizziness. No lightheadedness. Skin: No rash. No change in color. Laceration to right second toe, lateral aspect. Psychiatric: No depression. No anxiety. EXAM Physical Exam Narrative Exam Narrative: Afebrile. Vital signs noted. HEENT: Normocephalic. Atraumatic. PERRL, EOMI. Neck soft and supple. No point tenderness or step off. Cardiovascular: Regular rate and rhythm. No murmurs, rubs, or gallops appreciated. Respiratory: No tachypnea. Lungs clear to auscultation bilaterally. Gastrointestinal: Abdomen soft, nontender, with normoactive bowel sounds. No rebound or guarding. Neurological: Awake. Alert. Nonfocal, nonlateralizing. Skin: No rash. Normal color. No pallor. Flap-like laceration, almost complete avulsion of lateral aspect of right second toe. No nailbed involvement. No active bleeding. Musculoskeletal: No pedal edema. Full range of motion extremities. Const Vital Signs: 02/10/22 19:24 Temperature 97.9 F Temperature Source Temporal Pulse Rate 79 Respiratory Rate 16 Blood Pressure 146/64 H Blood Pressure Mean 91 Pulse Ox 97 Oxygen Delivery Method Room Air MDM MDM MDM Narrative Medical decision making narrative: I discussion with the patient and his . Given that this wound is almost 12 hours old, I discussed the increased risk of infection. He was told of scarring. Also, given his diabetes and it being on his toe, I do not feel that is necessarily amenable to suture laceration given the thin nature of the flap like laceration/almost complete avulsion. His wound was cleansed again by the RN and Steri-Strips were applied. He will have a wound check on Monday, approximately 4 days from now, by his primary care provider. I feel he can be discharged safely home with follow-up. He is to look for signs of infection including fever, redness, or drainage of purulent material from the area. Return instructions to the emergency department were reviewed. Disposition is discharged home in stable condition. Discharge Plan Triage Chief Complaint: Laceration ED Provider: Baldev Martin Dx/Rx/DC Orders Clinical Impression: Toe laceration, Injury of toe, Diabetes Instructions: ED Laceration, Foot: All Closures, ED Laceration, Old: Not Sutured Prescriptions: No Action fenofibrate micronized 200 MG capsule 200 mg PO DAILY aspirin 81 MG tablet,delayed release (DR/EC) 81 mg PO DAILY glimepiride 1 MG tablet 1 mg PO BID insulin aspart U-100 100 UNIT/ML solution 6 unit SQ TID ferrous sulfate 325 MG tablet 325 mg PO DAILY@0800 metformin 1,000 MG tablet 1,000 mg PO BID lovastatin 20 MG tablet 20 mg PO DAILY insulin glargine 100 UNIT/ML insulin pen 30 unit SQ QHS omeprazole 20 MG tablet,delayed release (DR/EC) 40 mg PO DAILY amlodipine 5 mg tablet 5 mg PO DAILY ciprofloxacin HCl 500 mg tablet 500 mg PO BID Qty: 14 0RF Primary Care Provider: Taye Lyons Referrals: Taye Lyons MD [Primary Care Provider] - 02/14/22 Activity Restrictions/Additional Instructions: Follow-up with your primary care provider on Monday for a wound check. Disposition Disposition: Home, Self Care
== END 2022-02-10 19:58 | disposition home or self-care (01) ==
LOC: ED 19:52
PROVIDERS: Emergency Provider Emergency Medicine; PCP Family Medicine; Visit Provider Emergency Medicine
DX: S91.114A Laceration without foreign body of right lesser toe(s) without damage to nail, initial encounter (principal); E11.9 Type 2 diabetes mellitus without complications; F17.290 Nicotine dependence, other tobacco product, uncomplicated; X58.XXXA Exposure to other specified factors, initial encounter
CPT/HCPCS: 99282

== ENCOUNTER 2022-09-17 11:32 | Emergency (ER) | payer MEDICARE, OTHER, SELFPAY ==
[2022-09-17 11:33] VITALS: BP 147/61; PULSE 80; RESP 16; TEMP 36.4; O2SAT 97; BMI 29.2
--- NOTE | 2022-09-17 11:47 | EDS_ITS ---
HPI <CRISTOPHER Loja - Last Filed: 09/17/22 11:53> History of Present Illness Chief Complaint: Eye Problem Narrative Narrative: Patient is an 86-year-old male with history of hypertension, diabetes who presents to the emergency department with 3 days of right eye swelling and itching. Patient states his upper eyelid is more red, more swollen and itching. His noticed that his eye was getting more swollen and wanted him to come in to get evaluated. Patient denies any eye pain. Denies any pain with moving his eye, denies any gross drainage. Patient denies any vision changes. Denies any fever or chills. PFS <CRISTOPHER Loja - Last Filed: 09/17/22 11:53> [facility] Medical History (Updated 09/17/22 @ 11:51 by CRISTOPHER Loja) Acute pancreatitis Anemia Benign prostatic hyperplasia CKD (chronic kidney disease) Diabetes Diarrhea Dyslipidemia GERD (gastroesophageal reflux disease) High cholesterol History of colon polyps HTN (hypertension) Hypomagnesemia Kidney stones Nausea Sepsis Home Medications aspirin 81 mg tablet,delayed release 81 mg PO DAILY 05/17/20 [History Last Taken Unknown] fenofibrate micronized 200 mg capsule 200 mg PO DAILY 05/17/20 [History Last Taken Unknown] ferrous sulfate 325 mg (65 mg iron) tablet 325 mg PO DAILY@0800 05/17/20 [History Last Taken Unknown] glimepiride 1 mg tablet 1 mg PO BID 05/17/20 [History Last Taken Unknown] insulin aspart U-100 100 unit/mL subcutaneous solution 6 unit SQ TID 05/17/20 [History Last Taken Unknown] insulin glargine 100 unit/mL (3 mL) subcutaneous pen 30 unit SQ QHS 05/17/20 [History Last Taken Unknown] lovastatin 20 mg tablet 20 mg PO DAILY 05/17/20 [History Last Taken Unknown] metformin 1,000 mg tablet 1,000 mg PO BID 05/17/20 [History Last Taken Unknown] omeprazole 20 mg tablet,delayed release 40 mg PO DAILY 05/17/20 [History Last Taken Unknown] amlodipine 5 mg tablet 5 mg PO DAILY 06/17/21 [History Last Taken Unknown] ciprofloxacin HCl 500 mg tablet 500 mg PO BID #14 tabs 06/17/21 [Rx Last Taken Unknown] cephalexin 500 mg capsule 500 mg PO Q6 7 days #28 CAPSULES 09/17/22 [Rx Last Taken Unknown] erythromycin 5 mg/gram (0.5 %) eye ointment 1 applic RIGHT EYE Q6H 5 days #3.5 grams 09/17/22 [Rx Last Taken Unknown] Allergy/AdvReac Type Severity Reaction Status Date / Time hydromorphone [From Dilaudid] Allergy NEEDS Verified 09/17/22 11:35 FOLLOW-UP lisinopril Allergy Angioedema Verified 09/17/22 11:35 Penicillins Allergy Rash Verified 09/17/22 11:35 Family History (Updated 07/21/22 @ 10:26 by Joanna Crews) Father Hypertension TIA (transient ischemic attack) Sister CAD (coronary artery disease) Diabetes COPD (chronic obstructive pulmonary disease) Lung cancer Surgical History H/O inguinal hernia repair History of cholecystectomy Social History (Updated 07/21/22 @ 10:24 by Joanna Crews) Smoking Status: Current every day smoker tobacco type: cigars alcohol intake: current ROS <CRISTOPHER Loja - Last Filed: 09/17/22 11:53> ROS ED ROS Narrative Constitutional: Negative for fever, chills, weight loss, weakness Eyes: Negative for vision loss, vision change, double vision. Positive right upper eyelid redness, itching ENT: Negative for any sore throat, ear pain, congestion Cardiovascular: Negative for any chest pain, tightness, palpitations Respiratory: Negative for any cough, sputum production, hemoptysis, dyspnea, dyspnea on exertion, orthopnea Gastrointestinal: Negative for any abdominal pain, nausea, vomiting, diarrhea, constipation, blood in stool, blood in vomit : Negative for any urinary frequency, dysuria, retention, blood in urine Muscle skeletal: Negative for any muscle joint pain, stiffness, myalgias, arthralgias, neck pain, back pain Neurological: Negative for any headache, syncope, numbness or tingling, dizziness Skin: Negative for any rashes, lumps, itching, abrasions, lacerations Psychiatric: Negative for any depression, anxiety, stress, suicidal ideation, homicidal ideation Hematologic: Negative for any easy bruising, excessive bruising, easy bleeding Allergies: Negative for any eczema, hives, rash EXAM <CRISTOPHER Loja - Last Filed: 09/17/22 11:53> Physical Exam Narrative Exam Narrative: Vital signs reviewed. HEET: Head normocephalic atraumatic, TMs clear bilaterally. Posterior pharynx is clear, moist mucous membranes. Nares clear bilaterally. Pupils are equal round reactive to light, patient has no pain with EOMs. Patient conjunctiva is not injected. Patient has no vision change. There is no evidence of any orb ital cellulitis. Patient does have some redness, itching to the right upper eyelid, this is consistent with a blepharitis. There is no evidence of a stye or abscess formation. Neck: Supple with no lymphadenopathy or tenderness. No signs of meningismus, negative jolt sign. Cardiac: Regular rate and rhythm no murmurs gallops or rubs, equal peripheral pulses bilaterally. Respiratory: Lungs clear to auscultation bilaterally. No chest tenderness. Abdomen: Soft, nontender, nondistended. No abdominal bruit or pulsatile masses. No hepatosplenomegaly Extremities: No peripheral edema, no signs of gross trauma or deformity. Active full range of motion of all extremities. Neuro: Cranial nerves II through XII intact, no focal neurological deficits. Skin: Clean dry and intact with no rash, purpura, petechiae, vesicles or pustules. Backs/flank: No CVA tenderness, no midline spinal tenderness, no deformity. Psych: Normal mood and affect. No SI, HI or acute psychosis. Const Vital Signs: 09/17/22 11:33 Temperature 97.6 F L Temperature Source Temporal Pulse Rate 80 Respiratory Rate 16 Blood Pressure 147/61 H Blood Pressure Mean 89 Pulse Ox 97 Oxygen Delivery Method Room Air Positive well nourished and well developed General Appearance ED: well developed MDM <CRISTOPHER Loja - Last Filed: 09/17/22 11:53> MDM Treatment and Re-Evaluation Narrative: Patient appears generally well, patient appears nontoxic, vital signs are stable. Patient presents to the emergency department with complaints of itchi ng, redness, swelling to the right upper eyelid. Patient's visit examination consistent with blepharitis. Differential diagnosis includes stye, orbital cellulitis, preseptal cellulitis however these are low on my suspicion list. Patient be treated with erythromycin ointment as well as 7 days of Keflex. Patient has no vision changes, he will follow-up closely outpatient. I spoke with the patient, the patient's all questions answered, he was given return precautions. <Dr. Valerie Dunham, DO - Last Filed: 09/17/22 16:19> [facility] Narrative Medical decision making narrative: I have personally performed a face to face assessment of the patient and have reviewed the [facility] Note. I performed a substantive portion of the visit including all aspects of the following. My larsen findings include: History is [patient presents to the emergency department with complaint of right upper eyelid redness and swelling and discomfort that started last evening. Patient denies any trauma. He does have prior history of stye formation. Patient is a diabetic.] Exam is [HEENT-PERRLA, EOMI. Cranial nerves II through XII grossly intact. TMs clear. Mucous membranes moist. No adenopathy. Right upper eyelid-patient does have diffuse erythema and edema of the eyelid. Central portion seems to be slightly more full along the eyelid margin and I believe he may be developing a stye. Cardiovascular-regular rate and rhythm without murmur or ectopy Lungs-clear to auscultation, chest wall stable without crepitus or subcu emphysema Abdomen-normoactive bowel sounds, soft, nontender, no rebound or rigidity, no peritoneal signs. Extremities-intact ?4, normal range of motion, normal pulses, atraumatic] Medical Decison Making [patient has a developing stye and blepharitis. He will be started on antibiotic ointment and Keflex. Patient advised to use warm compresses to the area. 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 5 to 7 days.] Other additions or changes: [None] Discharge Plan Triage Chief Complaint: Eye Problem ED Midlevel Provider: John Rosales ED Provider: Valerie Dunham Dx/Rx/DC Orders Clinical Impression: Blepharitis Instructions: Blepharitis Tx Meds Follow Up, ED Blepharitis Prescriptions: New erythromycin 5 mg/gram (0.5 %) ointment 1 applic RIGHT EYE Q6H 5 Days Qty: 3.5 0RF cephalexin 500 mg capsule 500 mg PO Q6 7 Days Qty: 28 0RF No Action fenofibrate micronized 200 MG capsule 200 mg PO DAILY aspirin 81 MG tablet,delayed release (DR/EC) 81 mg PO DAILY glimepiride 1 MG tablet 1 mg PO BID insulin aspart U-100 100 UNIT/ML solution 6 unit SQ TID ferrous sulfate 325 MG tablet 325 mg PO DAILY@0800 metformin 1,000 MG tablet 1,000 mg PO BID lovastatin 20 MG tablet 20 mg PO DAILY insulin glargine 100 UNIT/ML insulin pen 30 unit SQ QHS omeprazole 20 MG tablet,delayed release (DR/EC) 40 mg PO DAILY amlodipine 5 mg tablet 5 mg PO DAILY ciprofloxacin HCl 500 mg tablet 500 mg PO BID Qty: 14 0RF Primary Care Provider: Taye Lyons Referrals: Taye Lyons MD [Primary Care Provider] - Activity Restrictions/Additional Instructions: Please take the ointment to your right eye for 5 days. Finish the entire prescription of Keflex. Please return for worsening redness, vision changes, fever chills nausea vomiting. Disposition Disposition: Home, Self Care Discharge Date/Time: 09/17/22 12:19
[2022-09-17 12:15] VITALS: BP 136/78; PULSE 76; RESP 14; TEMP 36.3; O2SAT 99
== END 2022-09-17 12:19 | disposition home or self-care (01) ==
LOC: ED 12:03
PROVIDERS: Emergency Provider Emergency Medicine; PCP Family Medicine; Visit Provider Emergency Medicine
DX: H01.001 Unspecified blepharitis right upper eyelid (principal); N18.9 Chronic kidney disease, unspecified; F17.290 Nicotine dependence, other tobacco product, uncomplicated; Z86.010 Personal history of colon polyps
CPT/HCPCS: 99282

== ENCOUNTER → 2022-10-24 | Outpatient (CLI) | payer MEDICARE, OTHER, SELFPAY ==
--- NOTE | 2022-10-24 09:30 | RAD_ITS ---
STUDY: X-RAY CHEST REASON FOR EXAM: Male, 86 years old. One week history of cough and shortness of breath. TECHNIQUE: PA and lateral views of the chest. COMPARISON: None. FINDINGS: There is elevation of the right hemidiaphragm. Calcified granuloma in the right lung apex. There is no demonstrated pleural abnormality. Normal size heart. Normal mediastinum and kely. Normal visualized pulmonary arteries. There is atherosclerotic tortuosity of the aortic arch and descending thoracic aorta. There are mild degenerative changes of the visualized thoracic spine. Normal visualized ribs, clavicles, and shoulders. There is no demonstrated abnormality of the visualized soft tissue structures of the upper abdomen. RAD/Chest PA and Lateral IMPRESSION: No acute abnormality is seen. Electronically Signed: Sudhir Jha MD at 10:16 EDT ,
== END | disposition home or self-care (01) ==
PROVIDERS: PCP Family Medicine; Referring Provider Physician Assistant; Visit Provider Physician Assistant
DX: R05.9 Cough, unspecified (principal); R06.02 Shortness of breath
CPT/HCPCS: 71046

== ENCOUNTER 2023-10-07 13:50 | Inpatient (IN) | payer MEDICARE, OTHER, SELFPAY ==
[2023-10-07] VITALS (22 sets, daily range): BP systolic 119–171; BP diastolic 49–77; PULSE 76–87; RESP 10–31; TEMP 36.6–36.8; O2SAT 82–99; BMI 29.4
--- NOTE | 2023-10-07 14:03 | EDS_ITS ---
HPI History of Present Illness Chief Complaint: Flank Pain Informant: patient Onset/Context/Timing Onset: Days (3 days) Context: Gradual Onset Current Severity: Mild Maximum Severity: Mild Narrative Narrative: Patient presents with a 3-day history of right lateral abdominal pain at the waist area. He states his urine stream is not strong as it used to be, but he does not have any dysuria. He feels that he is emptying his bladder. Patient is nauseated but has not been vomiting. He has not measured a fever. [facility] Medical History COVID-19 Sepsis Hypomagnesemia History of colon polyps CKD (chronic kidney disease) Benign prostatic hyperplasia Anemia Acute pancreatitis Kidney stones Dyslipidemia Nausea Diarrhea GERD (gastroesophageal reflux disease) High cholesterol HTN (hypertension) Diabetes Home Medications ?Medication ?Instructions ?Recorded ?Last Taken ?Type aspirin 81 mg tablet,delayed 81 mg PO DAILY 05/17/20 Unknown History release fenofibrate micronized 200 mg 200 mg PO DAILY 05/17/20 Unknown History capsule ferrous sulfate 325 mg (65 mg 325 mg PO DAILY@0800 05/17/20 Unknown History iron) tablet glimepiride 1 mg tablet 1 mg PO BID 05/17/20 Unknown History insulin aspart U-100 100 unit/mL 6 unit SQ TID 05/17/20 Unknown History subcutaneous solution insulin glargine 100 unit/mL (3 30 unit SQ QHS 05/17/20 Unknown History mL) subcutaneous pen lovastatin 20 mg tablet 20 mg PO DAILY 05/17/20 Unknown History metformin 1,000 mg tablet 1,000 mg PO BID 05/17/20 Unknown History omeprazole 20 mg tablet,delayed 40 mg PO DAILY 05/17/20 Unknown History release amlodipine 5 mg tablet 5 mg PO DAILY 06/17/21 Unknown History erythromycin 5 mg/gram (0.5 %) eye 1 applic RIGHT EYE Q6H 5 days #3.5 09/17/22 Unknown Rx ointment grams benzonatate 200 mg capsule 200 mg PO TID PRN cough #20 caps 10/24/22 Unknown Rx azithromycin 250 mg tablet See Rx Instructions PO .COMPLEX #6 01/12/23 Unknown Rx tabs Allergy/AdvReac Type Severity Reaction Status Date / Time hydromorphone (From Dilaudid) Allergy NEEDS Verified 10/07/23 13:51 FOLLOW-UP lisinopril Allergy Angioedema Verified 10/07/23 13:51 Penicillins Allergy Rash Verified 10/07/23 13:51 Family History Father Hypertension TIA (transient ischemic attack) Sister CAD (coronary artery disease) Diabetes COPD (chronic obstructive pulmonary disease) Lung cancer Surgical History H/O inguinal hernia repair History of cholecystectomy Social History Smoking Status: Current every day smoker tobacco type: cigars alcohol intake: current ROS ROS ED Constitutional Constitutional ED: Denies chills or fever(s) Eyes Eyes: Denies change in vision or discharge from eye(s) ENT ENT ED: Denies discharge from eye(s), rhinorrhea or sore throat Cardiovascular Cardiovascular: Denies chest pain or palpitations Respiratory/Chest Respiratory/Chest: Reports cough; Denies dyspnea Gastrointestinal Gastrointestinal: Reports abdominal pain and nausea; Denies diarrhea or vomiting Genitourinary Genitourinary ED: Denies dysuria or hematuria Musculoskeletal Musculoskeletal: Reports back pain; Denies extremity pain Integumentary Denies Abrasions or rash Neurologic Neurologic: Denies headache(s) or weakness Psychiatric Psychiatric: Denies anxiety or depression Allergic/Immunologic Allergic/Immunologic ED: Denies lip swelling or urticaria EXAM Physical Exam Const Vital Signs: 10/07/23 13:52 10/07/23 14:25 10/07/23 14:31 Temperature 98.3 F Temperature Source Temporal Pulse Rate 79 Respiratory Rate 14 Respiratory Pattern Blood Pressure 170/77 H Blood Pressure Mean 108 Pulse Ox 93 82 94 Oxygen Delivery Method Room Air Room Air Nasal Cannula Oxygen Flow Rate (L/min) 2 10/07/23 15:15 10/07/23 15:30 10/07/23 15:45 Temperature Temperature Source Pulse Rate 87 83 82 Respiratory Rate 19 H 16 25 H Respiratory Pattern Blood Pressure 171/70 H Blood Pressure Mean 103 Pulse Ox 94 97 Oxygen Delivery Method Oxygen Flow Rate (L/min) 10/07/23 16:55 10/07/23 16:56 10/07/23 17:38 Temperature Temperature Source Pulse Rate 86 85 Respiratory Rate 16 23 H Respiratory Pattern Normal Blood Pressure 171/70 H Blood Pressure Mean 103 Pulse Ox 93 84 Oxygen Delivery Method Nasal Cannula Room Air Oxygen Flow Rate (L/min) 10/07/23 17:38 10/07/23 17:56 Temperature Temperature Source Pulse Rate Respiratory Rate Respiratory Pattern Blood Pressure Blood Pressure Mean Pulse Ox 94 91 Oxygen Delivery Method Nasal Cannula Nasal Cannula Oxygen Flow Rate (L/min) 4 4 Positive well nourished and well developed General Appearance ED: well developed HEENT Reports moist mucous membranes Eyes EOMs intact bilaterally Chest Wall inspection of chest normal and palpation of chest normal Resp normal respiratory effort and clear to auscultation bilaterally Cardio regular rate and regular rhythm GI GI Narrative: Abdomen soft with no focal tenderness to palpation. Hypoactive but present bowel sounds are noted throughout. No palpable masses. Back/Spine no CVA tenderness Extremity normal to inspection Neuro oriented x3 and no sensory deficits noted Motor Exam: strength 5/5 throughout Psych mental status grossly normal Skin no rashes or lesions noted MDM MDM MDM Narrative Medical decision making narrative: Abdomen established. Patient given fluids and Zofran. He declines anything for pain at this time. Labwork obtained to evaluate for leukocytosis, anemia, and electrolyte derangement. Urinalysis obtained to evaluate for infection/hematuria. CT flank will be obtained to evaluate for potential renal stone or ureterolithiasis. While awaiting test results, patient's O2 sat was noted to be reading 82%. We checked this with a separate pulse ox and with a good waveform was only reading 85%. He states his pulse ox normally reads 93% on room air. He is placed on 2 L nasal cannula. Will obtain a CTA of the chest in addition to the CT scan of the abdomen pelvis to evaluate for potential pulmonary embolism and pneumonia. History & Record Review Discussion w/independent historian: Patient Additional record(s) reviewed:: Prior labs Lab Data Attestation: I reviewed the patient's lab results. Labs: Laboratory Results - last 24 hr 10/07/23 10/07/23 14:10 16:27 WBC 14.0 H RBC 4.46 L Hgb 11.7 L Hct 36.8 L MCV 82.5 MCH 26.2 L MCHC 31.8 L RDW Std Deviation 48.7 H RDW Coeff of Abdulaziz 16.1 H Plt Count 408 MPV 10.4 Immature Gran % (Auto) 0.700 Neut % (Auto) 78.6 H Lymph % (Auto) 14.8 L [place] % (Auto) 5.3 Eos % (Auto) 0.4 Baso % (Auto) 0.2 Absolute Neuts (auto) 11.0 H Absolute Lymphs (auto) 2.06 Nucleated RBC % 0 Sodium 139 Potassium 4.1 Chloride 104 Carbon Dioxide 26.0 Anion Gap 9 BUN 20 H Creatinine 1.84 H Est GFR (MDRD) Af Amer 45 L Est GFR (MDRD) Non-Af 37 L BUN/Creatinine Ratio 10.9 Glucose 165 H Calcium 9.7 Urine Color Straw Urine Clarity Clear Urine pH 7.0 Ur Specific [place] 1.010 Urine Protein 15 H Urine Glucose (UA) 50 H Urine Ketones Negative Urine Occult Blood 25 H Urine Nitrite Negative Urine Bilirubin Negative Urine Urobilinogen Normal Ur Leukocyte Esterase Negative Urine RBC 0 SEEN Urine WBC 0-5 SEEN Ur Squamous Epith Cells 0 SEEN Urine Bacteria RARE Urine Mucus 0 SEEN Radiography Diagnostic Testing: Clinical Impression(s) from Imaging Studies Abdomen/Pelvis CT 10/07/23 14:03 IMPRESSION: 5 mm stone in the right mid ureter and a 4 mm stone at the right ureterovesicular junction with mild right hydroureteronephrosis. Bilateral subcentimeter nonobstructing renal collecting system stones. No left ureteral stones. No left hydronephrosis. No bowel obstruction or inflammation. Normal appendix. Diverticulosis. Atherosclerosis and coronary artery disease. Electronically Signed: Solo Anderson MD at 16:16 EDT Reading Location ID and State: [facility] / [place] Tel , Service support , Chest CTA 10/07/23 14:28 IMPRESSION: No pulmonary embolus. No thoracic aortic aneurysm or dissection. Coronary artery disease. No pulmonary infiltrates or pleural effusions. Elevation of the right hemidiaphragm. Bibasilar atelectasis Electronically Signed: Solo Anderson MD at 15:27 EDT , EKG Initial EKG: Attestation: I personally reviewed and interpreted this EKG as follows: Interpretation: Sinus Rhythm (Sinus 81 with no acute ischemia.) Treatment and Re-Evaluation :: CBC was a white count of 14 with 78% neutrophils. Hemoglobin is 11.7. Chemistry studies reveal a BUN of 20 and a creatinine of 1.84. Glucose is 165. Most recent renal function test that I can find in [facility] reveal a BUN of 17 and creatinine 1.51 on July 06 of this year. Urinalysis reveals no evidence of acute infection. CT scan of the abdomen and pelvis reveals a 5 mm stone in the right mid ureter and a 4 mm stone at the right UVJ with mild right hydronephrosis. CTA of the chest reveals no evidence of pulmonary embolism. No dissection or aneurysm. No pulmonary infiltrates or pleural effusion. Patient was taken off of the oxygen and again dropped his O2 sat to 82%. EKG is sinus rhythm with no evidence of ischemia. Patient has no chest pain and does not particularly feel short of breath when sitting at rest at this time. He states he will get occasional shortness of breath. I did give him a DuoNeb treatment but patient did drop his O2 sat after coming off oxygen following this as well. I explained to the patient and the that as far as his kidney stone is concerned. He is not having significant pain and has not even had a dose of pain medication here. He tolerated Zofran well to help control his nausea. Typically I would be sending him home for follow-up with urology. Unfortunately, because of his hypoxia I cannot send him home. I spoke with the hospitalist. I do not have urology coverage available today or tomorrow but they will be back on Monday. Again, I do not think he needs an acute intervention for his kidney stones. We will add a COVID test, troponin, and BNP and patient will be evaluated by the hospitalist for admission. Discharge Plan Triage Chief Complaint: Flank Pain ED Provider: Radha Perez Dx/Rx/DC Orders Clinical Impression: Hypoxia, Ureterolithiasis Prescriptions: No Action benzonatate 200 mg capsule 200 mg PO TID PRN (Reason: cough) Qty: 20 0RF azithromycin 250 mg tablet See Rx Instructions PO .COMPLEX Qty: 6 0RF Rx Instructions: take 500 mg today (day 1), then 250 mg for 4 days (days 2-5) PO fenofibrate micronized 200 MG capsule 200 mg PO DAILY aspirin 81 MG tablet,delayed release (DR/EC) 81 mg PO DAILY glimepiride 1 MG tablet 1 mg PO BID insulin aspart U-100 100 UNIT/ML solution 6 unit SQ TID ferrous sulfate 325 MG tablet 325 mg PO DAILY@0800 metformin 1,000 MG tablet 1,000 mg PO BID lovastatin 20 MG tablet 20 mg PO DAILY insulin glargine 100 UNIT/ML insulin pen 30 unit SQ QHS omeprazole 20 MG tablet,delayed release (DR/EC) 40 mg PO DAILY amlodipine 5 mg tablet 5 mg PO DAILY erythromycin 5 mg/gram (0.5 %) ointment 1 applic RIGHT EYE Q6H 5 Days Qty: 3.5 0RF Primary Care Provider: Taye Lyons Referrals: Taye Lyons MD [Primary Care Provider] - Print Language: Montenegrin Disposition Disposition: Acute Care Hospital [facility]
--- NOTE | 2023-10-07 14:03 | CT_ITS ---
STUDY: CT ABDOMEN AND PELVIS WITHOUT CONTRAST REASON FOR EXAM: Male, 87 years old. Right flank pain. RADIATION DOSAGE (If Supplied By Facility): CTDIvol = ( 13 ) mGy, DLP = ( 455 ) mGycm TECHNIQUE: Transaxial images were obtained from the dome of the diaphragm to the symphysis pubis without oral contrast, and without intravenous contrast. Sagittal and coronal images were reconstructed. Individualized dose optimization techniques were used for this CT. COMPARISON: No relevant prior comparison study available FINDINGS: Evaluation of the abdominal viscera is limited in the absence of intravenous contrast. LOWER THORAX: There is atelectasis at the lung bases. The visualized portions of the heart and pericardium are within normal limits. There are coronary artery calcifications. GALLBLADDER / BILE DUCTS: The patient is status post cholecystectomy. The common bile duct is normal in caliber. There are no calcified ductal stones. LIVER: The liver demonstrates an unremarkable unenhanced appearance. SPLEEN: The spleen is normal in size. PANCREAS: The pancreas demonstrates an unremarkable unenhanced appearance. ADRENAL GLANDS: The adrenal glands are within normal limits. KIDNEYS / BLADDER: There is a 5 mm stone in the right mid ureter and a 4 mm stone at the right ureterovesicular junction with mild right hydroureteronephrosis. There are bilateral subcentimeter nonobstructing renal collecting system stones. There are no left ureteral stones. There is no left hydronephrosis. There are no focal renal lesions identified on this noncontrast exam. The urinary bladder is partially distended and appears grossly unremarkable. STOMACH / BOWEL: Normal visualized stomach. There is no bowel obstruction or inflammation. There are colonic diverticula without evidence of diverticulitis. The appendix is visualized and appears normal. PERITONEUM / RETROPERITONEUM: There is no abdominal or pelvic free air, free fluid or fluid collection. There is no abnormal soft tissue mass identified. There is no abdominal or pelvic lymphadenopathy. VESSELS: There are atherosclerotic calcifications noted in the aorta and its branches. The aorta is normal in caliber. The IVC is unremarkable. BONES: There are no destructive osseous lesions. SOFT TISSUES: The visualized soft tissues are within normal limits. CT/Abdomen/Pelvis without Cont IMPRESSION: 5 mm stone in the right mid ureter and a 4 mm stone at the right ureterovesicular junction with mild right hydroureteronephrosis. Bilateral subcentimeter nonobstructing renal collecting system stones. No left ureteral stones. No left hydronephrosis. No bowel obstruction or inflammation. Normal appendix. Diverticulosis. Atherosclerosis and coronary artery disease. Electronically Signed: Solo Anderson MD at 16:16 EDT ,
[2023-10-07] MEDS: Ondansetron 4 MG/2 ML Vial IV ×2 (14:17→16:01)
[2023-10-07] MEDS: 0.9% Normal Saline (1000mL) 1,000 ML 150 ML IV (14:17)
[2023-10-07 14:24] LABS: Absolute Lymphocyte Count 2.06 X10^3/uL (0.83-4.51); Basophil# 0.03 X10^3/uL; Basophil% 0.2 % (0-1); Eosinophil# 0.06 X10^3/uL; Eosinophils% 0.4 % (0-5); Hematocrit 36.8 % (40-54); Hemoglobin 11.7 g/dL (13.0-16.5); Lymphocyte # 2.06 X10^3/ul (0.83-4.51); Lymphocyte % 14.8 % (19-41); Mean Corp Hgb Conc 31.8 g/dL (32-36); Mean Corpuscular Hgb 26.2 pg (27.0-32.0); Mean Corpuscular Volume 82.5 fL (80-94); Mean Platelet Vol. 10.4 fl (6.2-12.0); Monocyte# 0.74 X10^3/uL; Monocyte% 5.3 % (0-10); NRBC Flagged by Analyzer 0 % (0-5); Neutrophil # 10.97 X10^3/uL (2.7-7.7); Neutrophil % 78.6 % (47-70); Platelet Count 408 K/mm3 (150-450); RBC Distribution Width CV 16.1 % (11.6-14.6); RBC Distribution Width SD 48.7 fl (35.1-43.9); Red Blood Count 4.46 M/mm3 (4.6-6.2)
--- NOTE | 2023-10-07 14:28 | CT_ITS ---
STUDY: CTA CHEST WITH CONTRAST REASON FOR EXAM: Male, 87 years old. Hypoxia RADIATION DOSAGE (If Supplied By Facility): CTDIvol = ( 12.34 ) mGy, DLP = ( 461.09 ) mGycm TECHNIQUE: Transaxial imaging was performed following intravenous administration of 100 ml of Isovue-370 contrast material. Coronal and sagittal reformatted images were created. 3D post processed images were created. Individualized dose optimization techniques were used for this CT. COMPARISON: No relevant prior comparison study available FINDINGS: LUNGS: There are no pulmonary infiltrates. There is atelectasis at the lung bases. PLEURAL SPACE: There are no pleural effusions. There is no pneumothorax. MEDIASTINUM: The heart and pericardium are within normal limits. There are coronary artery calcifications. There is no pneumomediastinum. There is no thoracic lymphadenopathy. VESSELS There is no pulmonary embolus. The pulmonary artery is normal in caliber. There is no thoracic aortic aneurysm or dissection. UPPER ABDOMEN: There is elevation of the right hemidiaphragm. BONES: There are no destructive osseous lesions. SOFT TISSUES: The visualized soft tissues are unremarkable. CT/CTA Chest W/WO Contrast IMPRESSION: No pulmonary embolus. No thoracic aortic aneurysm or dissection. Coronary artery disease. No pulmonary infiltrates or pleural effusions. Elevation of the right hemidiaphragm. Bibasilar atelectasis Electronically Signed: Solo Anderson MD at 15:27 EDT ,
[2023-10-07 14:31] LABS: Anion Gap 9 (5-15); BUN 20 mg/dL (7-18); BUN/Creat Ratio 10.9 RATIO (10-20); Calcium,Total 9.7 mg/dL (8.5-10.1); Chloride 104 mmol/L (98-107); Creatinine, Serum 1.84 mg/dL (0.70-1.30); EST Glomerular Filtration Rate 37 mL/min (>60); Est Glom Filt Rate - Afr Amer 45 mL/min (>60); Glucose 165 mg/dL (74-106); Potassium 4.1 mmol/L (3.5-5.1); Sodium Level 139 mmol/L (136-145)
[2023-10-07 16:36] LABS: Mucous, Urine 0 SEEN /hpf (<or=2+); Red Blood Cells-Urine 0 SEEN /hpf (0-5); Squamous Epithelial Cells - UA 0 SEEN /hpf (0-5)
[2023-10-07 16:41] LABS: Color, Urine Straw (Yellow); Glucose, Dipstick 50 mg/dl (Normal); Ketone-Dipstick Negative (Negative); Leukocyte Esterase-Dipstick Negative /ul (Negative); Nitrite-Dipstick Negative (Negative); Occult Blood-Urine 25 /ul (Negative); Protein-Dipstick 15 mg/dl (Negative); Urine Bilirubin Dipstick Negative (Negative); Urine Clarity Clear (Clear); Urine Urobilinogen Normal (Normal)
[2023-10-07] MEDS: Ipratropium/Albuterol Sulfate 3 ML AMPUL.NEB INHALATION (16:49)
[2023-10-07 16:55] LABS: Bacteria RARE /hpf (None Seen)
[2023-10-07 16:56] LABS: White Blood Cells 0-5 SEEN /hpf (0-5)
--- NOTE | 2023-10-07 17:44 | EKG12_ITS ---
Test Reason : GENERAL Blood Pressure : / mmHG Vent. Rate : 081 BPM Atrial Rate : 081 BPM P-R Int : 280 ms QRS Dur : 094 ms QT Int : 388 ms P-R-T Axes : 074 -49 066 degrees QTc Int : 450 ms Sinus rhythm with 1st degree A-V block Left anterior fascicular block Abnormal ECG Confirmed by ERNESTO CABELLO, BERT ([id number]), department editor MIGUEL ANGEL CHO ([id number]) on 10/09/2023 10:59:26 AM Referred By: Confirmed By:BERT OROZCO MD
[2023-10-07 18:33] LABS: BNP,B-Type NATRIURETIC PEPTIDE 60.8 pg/mL (0-100)
[2023-10-07 18:35] LABS: Troponin-I HS 16 pg/mL (3.0-78.0)
--- NOTE | 2023-10-07 19:12 | ECHOD_ITS ---
Reason For Study: Hypoxia Procedure This was a 2D Doppler, Color Flow transthoracic echocardiogram. Exam performed portable in patient room. Left Ventricle Normal LV size. Moderate concentric left ventricular hypertrophy. Left ventricular systolic function is normal. The estimated ejection fraction is 60 %. Stage 1 diastolic dysfunction. No regional wall motion abnormalities noted. Right Ventricle Normal RV size. Normal systolic function. Atria Normal left atrium. Normal right atrium. Mitral Valve Normal mitral valve. Mild (1+) eccentric mitral valve insufficiency. Tricuspid Valve Normal tricuspid valve. Mild (1+) tricuspid valve insufficiency. Pulmonary artery systolic pressure is 30 mmHg. Aortic Valve Trisinus/trileaflet aortic valve. Trivial aortic valve insufficiency. Great Vessels Normal aortic root. The pulmonary artery is normal size. Normal inferior vena cava. Pericardium/Pleural No pericardial effusion. MMode/2D Measurements & Calculations LVIDd: 4.5 cm IVSd: 1.7 cm LVOT diam: 2.3 cm LVIDs: 2.4 cm LVPWd: 1.3 cm LVOT area: 4.0 cm2 RVDd: 3.8 cm FS: 45.7 % Ao root diam: 3.4 cm LAV(MOD-bp): 50.6 ml LVAd ap4: 28.3 cm2 LAV(MOD-bp) Indexed: 22.3 ml/m2 LVLd ap4: 7.8 cm LAV(MOD-sp2): 48.8 ml EDV(MOD-sp4): 87.5 ml LAV(MOD-sp4): 52.7 ml EDV(sp4-el): 86.7 ml LVAs ap4: 13.3 cm2 LVLs ap4: 6.3 cm ESV(MOD-sp4): 26.2 ml ESV(sp4-el): 24.1 ml EF(MOD-sp4): 70.1 % EF(sp4-el): 72.2 % SV(MOD-sp4): 61.3 ml SV(MOD-sp2): 36.9 ml LVAd ap2: 25.5 cm2 LVLd ap2: 8.1 cm EDV(MOD-sp2): 71.3 ml EDV(sp2-el): 67.5 ml LVAs ap2: 16.2 cm2 LVLs ap2: 7.0 cm ESV(MOD-sp2): 34.4 ml ESV(sp2-el): 32.1 ml EF(MOD-sp2): 51.7 % SV(sp4-el): 62.6 ml LA A4 area: 18.9 cm2 LA dimension(2D): 3.5 cm TAPSE: 1.9 cm RA A4 area: 14.2 cm2 Time Measurements MV dec time: 0.26 sec Doppler Measurements & Calculations MV E max hamzah: 66.4 cm/sec Lat Peak E' Hamzah: 7.3 cm/sec Med Peak E' Hamzah: 7.2 cm/sec MV A max hamzah: 71.1 cm/sec E/E' lat: 9.1 E/E' med: 9.2 MV E/A: 0.93 MV dec slope: 255.3 cm/sec2 Ao V2 max: 145.8 cm/sec AI max hamzah: 362.6 cm/sec Ao max P.5 mmHg AI max P.0 mmHg MIGDALIA(V,D): 2.5 cm2 AI dec slope: 184.7 cm/sec2 AI P1/2t: 575.1 msec LV V1 max: 92.5 cm/sec PA V2 max: 68.8 cm/sec TR max hamzah: 255.8 cm/sec LV V1 max P.4 mmHg TR max P.2 mmHg ECHO/Echo Complete Interpretation Summary Normal LV size. Left ventricular systolic function is normal. The estimated ejection fraction is 60 %. Moderate concentric left ventricular hypertrophy. Stage 1 diastolic dysfunction. Ordering Physician: Leyla Do Referring Physician: Taye Lyons Performed By: Stefanie Guan RDCS and Student
--- NOTE | 2023-10-07 19:12 | PCM.HP.STD ---
[facility] - General General Date of Admission: 10/07/23 Date of Service: 10/07/23 Chief Complaint: Nausea/flank pain HPI Narrative JUAN M RODRIGUEZ, is a 87 M who presented to the emergency department at [facility] with right-sided flank pain that had started about 3 days previously. He stated it started in the right lateral abdominal area and came around to the anterior waist area. He reported his urine stream was not as strong as it typically is but denied any specific dysuria. He does feel that he is emptying his bladder completely and he has been nauseated and dry heaving but not having any vomiting. He states he had about 5 episodes of dry heaves today and his p.o. intake has been poor. He has not had any known fever or chills. He does have a history of pancreatitis and nephrolithiasis. He denies any epigastric pain or pain that radiated to his central back. He denies any specific shortness of breath. States he has a chronic cough that comes and goes but no sputum production and complains of intermittent fatigue due to advancing age but he states his fatigue is now worse in the last couple weeks that is at baseline. His bowels have been normal. He has had previous cholecystectomy. He does admit to tobacco abuse and states he smokes 1 cigar daily. Patient reports at baseline his oxygen saturation is about 93% on room air at rest when he checks himself at home. He does not wear supplemental oxygen at baseline and does not see pulmonary medicine for anything. Vital signs on presentation showed a temperature of 98.3, heart rate 79, respiratory was 14, blood pressure was 170/77 and pulse ox was 82% on room air. He was placed on 2 L nasal cannula with improvement to his oxygen saturation up to 94%. His CBC shows a mild leukocytosis with a white count of 14.0. His hemoglobin is 11.7. He does have a left shift with 78.6% neutrophilia. His serum electrolytes are normal on BMP however his BUN and creatinine are elevated at 20 and 1.84. Baseline is unknown. Blood glucose is 165 and this is nonfasting. Liver functions are pending. Troponin was 16 and BNP was 60.8. No previous have been performed. His UA shows small amount of protein, small amount of glucose, and 25 of occult blood but was otherwise unremarkable and no consistency with infection. CT of the abdomen pelvis shows a 5 mm stone in the right mid ureter and a 4 mm stone in the right ureterovesical junction with mild right hydronephrosis and bilateral subcentimeter nonobstructing renal collecting system stones with no left-sided ureteral stones or left hydronephrosis. No abnormality is noted in the bowel he is noted to have atherosclerosis and coronary artery disease. CTA of the chest was performed given his hypoxia. This showed no pulmonary emboli, no thoracic aneurysm or dissection, coronary artery disease but no pulmonary infiltrates or pleural effusions. He does have elevation of right hemidiaphragm with basilar atelectasis. On my personal review he does appear to have some patchy groundglass changes and bronchiectasis. COVID-19, flu, RSV PCR pending. The original intention was to send him home and have him follow-up with urology however with his new hypoxia and not having oxygen at home admission was felt to be required. [facility] Medical History (Updated 10/07/23 @ 19:[address] Leyla Do, DO) First degree heart block COVID-19 Sepsis Hypomagnesemia History of colon polyps CKD (chronic kidney disease) Benign prostatic hyperplasia Anemia Acute pancreatitis Kidney stones Dyslipidemia Nausea Diarrhea GERD (gastroesophageal reflux disease) High cholesterol HTN (hypertension) Diabetes Home Medications ?Medication ?Instructions ?Recorded ?Last Taken ?Type aspirin 81 mg tablet,delayed 81 mg PO DAILY 05/17/20 Unknown History release ferrous sulfate 325 mg (65 mg 325 mg PO DAILY@0800 05/17/20 Unknown History iron) tablet glimepiride 1 mg tablet 1 mg PO BID 05/17/20 Unknown History insulin aspart U-100 100 unit/mL 6 unit SQ TID 05/17/20 Unknown History subcutaneous solution insulin glargine 100 unit/mL (3 30 unit SQ QHS 05/17/20 Unknown History mL) subcutaneous pen lovastatin 20 mg tablet 20 mg PO DAILY 05/17/20 Unknown History metformin 1,000 mg tablet 1,000 mg PO BID 05/17/20 Unknown History omeprazole 20 mg tablet,delayed 40 mg PO DAILY 05/17/20 Unknown History release amlodipine 5 mg tablet 5 mg PO DAILY 06/17/21 Unknown History Allergy/AdvReac Type Severity Reaction Status Date / Time hydromorphone (From Dilaudid) Allergy NEEDS Verified 10/07/23 13:51 FOLLOW-UP lisinopril Allergy Angioedema Verified 10/07/23 13:51 Penicillins Allergy Rash Verified 10/07/23 13:51 Family History Father Hypertension TIA (transient ischemic attack) Sister CAD (coronary artery disease) Diabetes COPD (chronic obstructive pulmonary disease) Lung cancer Surgical History H/O inguinal hernia repair History of cholecystectomy Social History (Updated 10/07/23 @ 19:[address] Leyla Do DO) household members: spouse housing: house Smoking Status: Current every day smoker tobacco type: cigars alcohol intake: current alcohol intake frequency: 0-2 drinks per day substance use type: does not use ROS Constitutional Constitutional: Reports anorexia and fatigue; Denies change in weight, chills, fever(s), malaise, night sweats, weakness or other Eyes Eyes: Denies blurry vision, change in eye color, change in vision, discharge from eye(s), double vision, erythema, eye pain, loss of vision or other ENT HEENT: Reports abnormal hearing and hearing loss; Denies dysphagia, ear pain, epistaxis, headache(s), nasal congestion, nasal discharge, post nasal drip, sinus pressure, sore throat or other Cardiovascular Cardiovascular: Denies chest pain, claudication, dyspnea on exertion, edema, lightheadedness, orthopnea, palpitations, paroxysmal nocturnal dyspnea, rapid heart rate, syncope or other Respiratory/Chest Respiratory/Chest: Reports cough; Denies dyspnea, excessive phlegm production, hemoptysis, productive cough, shortness of breath at rest, shortness of breath with exertion, wheezing or other Gastrointestinal Gastrointestinal: Reports abdominal pain, nausea and other Details: Right flank pain, dry heaving with no emesis ; Denies coffee ground emesis, constipation, diarrhea, dyspepsia, hematemesis, hematochezia, loose stools, melena or vomiting Genitourinary Genitourinary: Reports other Details: Decreased urinary output Musculoskeletal Musculoskeletal: Reports back pain; Denies arthralgias, joint pain, joint stiffness, joint swelling, myalgias, neck pain or other Neurologic Neurologic: Denies abnormal gait, abnormal speech, confusion, disequilibrium, dizziness, focal weakness, headache(s), numbness, paresthesias, seizure-like activity, seizures, syncope, tingling, tremor(s) or other Psychiatric Psychiatric: Denies anxiety, depression, homicidal ideation, suicidal ideation or other Endocrine Endocrinology: Denies change in body appearance, cold intolerance, excessive sweating, heat intolerance, polydipsia, polyuria or other Hematologic/Lymphatic Hematologic/Lymphatic: Denies anemia, easy bleeding, easy bruising, lymphadenopathy or other Allergic/Immunologic Allergic/Immunologic: Denies rhinitis, hives, eczemia, asthma or other Vital Signs Vital Signs Vital Signs: 10/07/23 13:52 10/07/23 14:25 10/07/23 14:31 Temperature 98.3 F Temperature Source Temporal Pulse Rate 79 Respiratory Rate 14 Respiratory Pattern Blood Pressure 170/77 H Blood Pressure Mean 108 Pulse Ox 93 82 94 Oxygen Delivery Method Room Air Room Air Nasal Cannula Oxygen Flow Rate (L/min) 2 10/07/23 15:15 10/07/23 15:30 10/07/23 15:45 Temperature Temperature Source Pulse Rate 87 83 82 Respiratory Rate 19 H 16 25 H Respiratory Pattern Blood Pressure 171/70 H Blood Pressure Mean 103 Pulse Ox 94 97 Oxygen Delivery Method Oxygen Flow Rate (L/min) 10/07/23 16:55 10/07/23 16:56 10/07/23 17:00 Temperature Temperature Source Pulse Rate 86 85 85 Respiratory Rate 16 23 H 21 H Respiratory Pattern Normal Blood Pressure 171/70 H 165/72 H Blood Pressure Mean 103 99 Pulse Ox 93 90 Oxygen Delivery Method Nasal Cannula Oxygen Flow Rate (L/min) 10/07/23 17:15 10/07/23 17:30 10/07/23 17:38 Temperature Temperature Source Pulse Rate 85 85 Respiratory Rate 15 24 H Respiratory Pattern Blood Pressure Blood Pressure Mean Pulse Ox 90 87 84 Oxygen Delivery Method Room Air Oxygen Flow Rate (L/min) 10/07/23 17:38 10/07/23 17:45 10/07/23 17:56 Temperature Temperature Source Pulse Rate 82 Respiratory Rate 10 L Respiratory Pattern Blood Pressure Blood Pressure Mean Pulse Ox 94 96 91 Oxygen Delivery Method Nasal Cannula Nasal Cannula Oxygen Flow Rate (L/min) 4 4 10/07/23 18:00 10/07/23 18:15 10/07/23 18:30 Temperature Temperature Source Pulse Rate 85 85 81 Respiratory Rate 17 31 H 26 H Respiratory Pattern Blood Pressure 142/49 H Blood Pressure Mean 75 Pulse Ox 91 90 90 Oxygen Delivery Method Oxygen Flow Rate (L/min) 10/07/23 18:45 10/07/23 19:00 Temperature Temperature Source Pulse Rate 80 76 Respiratory Rate 16 20 H Respiratory Pattern Blood Pressure Blood Pressure Mean Pulse Ox 90 92 Oxygen Delivery Method Oxygen Flow Rate (L/min) Results Lab / Micro Data 10/07/23 14:10 10/07/23 14:10 Labs: Laboratory Results - last 24 hr 10/07/23 14:10: WBC 14.0 H, RBC 4.46 L, Hgb 11.7 L, Hct 36.8 L, MCV 82.5, MCH 26.2 L, MCHC 31.8 L, RDW Std Deviation 48.7 H, RDW Coeff of Abdulaziz 16.1 H, Plt Count 408, MPV 10.4, Immature Gran % (Auto) 0.700, Neut % (Auto) 78.6 H, Lymph % (Auto) 14.8 L, [place] % (Auto) 5.3, Eos % (Auto) 0.4, Baso % (Auto) 0.2, Absolute Neuts (auto) 11.0 H, Absolute Lymphs (auto) 2.06, Nucleated RBC % 0, Sodium 139, Potassium 4.1, Chloride 104, Carbon Dioxide 26.0, Anion Gap 9, BUN 20 H, Creatinine 1.84 H, Est GFR (MDRD) Af Amer 45 L, Est GFR (MDRD) Non-Af 37 L, BUN/Creatinine Ratio 10.9, Glucose 165 H, Calcium 9.7 10/07/23 16:27: Urine Color Straw, Urine Clarity Clear, Urine pH 7.0, Ur Specific [place] 1.010, Urine Protein 15 H, Urine Glucose (UA) 50 H, Urine Ketones Negative, Urine Occult Blood 25 H, Urine Nitrite Negative, Urine Bilirubin Negative, Urine Urobilinogen Normal, Ur Leukocyte Esterase Negative, Urine RBC 0 SEEN, Urine WBC 0-5 SEEN, Ur Squamous Epith Cells 0 SEEN, Urine Bacteria RARE, Urine Mucus 0 SEEN 10/07/23 18:04: Troponin I High Sens 16, B-Natriuretic Peptide 60.8 Imaging Radiology Impression Abdomen/Pelvis CT 10/07/23 14:03 IMPRESSION: 5 mm stone in the right mid ureter and a 4 mm stone at the right ureterovesicular junction with mild right hydroureteronephrosis. Bilateral subcentimeter nonobstructing renal collecting system stones. No left ureteral stones. No left hydronephrosis. No bowel obstruction or inflammation. Normal appendix. Diverticulosis. Atherosclerosis and coronary artery disease. Electronically Signed: Solo Anderson MD at 16:16 EDT , Chest CTA 10/07/23 14:28 IMPRESSION: No pulmonary embolus. No thoracic aortic aneurysm or dissection. Coronary artery disease. No pulmonary infiltrates or pleural effusions. Elevation of the right hemidiaphragm. Bibasilar atelectasis Electronically Signed: Solo Anderosn MD at 15:27 EDT , Assessment & Plan Assessment/Plan (1) Ureterolithiasis: (2) Nephrolithiasis: (3) Hypoxia: (4) Elevated serum creatinine: (5) Leukocytosis: PLAN: Plan Right-sided flank pain secondary to nephrolithiasis/urolithiasis -Mild hydro -we will treat clinically with Flomax 0.4 twice daily -Unable to pursue aggressive IV fluids at this time as I am unclear why he is hypoxic and he does have crackles at the bases so we will hold off on aggressive hydration for now -As needed medication available for pain -If clinically improves or remained stable can refer to urology as outpatient if does not improve or worsens will need urology involvement Hypoxia -Etiology is unclear -Patient is not on oxygen at baseline -BNP is only 68 however patient is obese -Check echocardiogram--> patient aware this will be done till Monday -Crackles at bases -Strict I's and O's -Fluid restriction to 1750 cc daily -Salt restricted diet -Daily weights -Will give Lasix for now and reevaluate tomorrow -Incentive spirometry and Pep ordered -CTA is negative for any PE however does show patchy groundglass abnormalities diffusely upon my review -As needed albuterol -Will need ambulatory pulse ox prior to discharge Nausea/dry heaving -Etiology is unclear -It may be related to nephrolithiasis -Liver functions are pending -As needed antiemetics -Will place on regular diet and monitor intake -If not tolerating may need to scale back to clear liquid diet -Hold on IV fluids for now due to hypoxia and crackles at bases concerning for volume overload -Reassess tomorrow Leukocytosis -Etiology is unclear -May be reactive -Patient has no signs of infection with no fever, unremarkable UA, no infiltrate noted on CTA of the chest -Repeat lab in a.m. Elevated serum creatinine -CKD is documented in the chart however baseline is unknown -Serum creatinine on presentation is 1.84 -Lasix given due to crackles at bilateral bases and hypoxia -Repeat lab in a.m. to reassess renal function -Hold metformin -Hold glimepiride DM-2 -Continue basal insulin glargine 30 units at at bedtime -Hold home metformin and glimepiride -Cardiac/carb controlled diet -Accu-Cheks as ordered GERD -Continue home PPI Essential HTN/HPL -Continue home amlodipine -Continue home statin History of pancreatitis -Imaging unremarkable for abnormalities of the pancreas -Patient with no epigastric tenderness -Has had extensive workup at [facility] DVT prophylaxis -Subcu heparin 3 times daily CODE STATUS -DNR CCA okay for short-term intubation per discussion with patient prior to admission Charges/Coding Visit Charges Inpatient E&M: 06243 Init Hosp L3
[2023-10-07 19:31] LABS: AST(SGOT) 20 U/L (15-37); Alanine Aminotransfer ALT/SGPT 24 U/L (16-61); Albumin, Serum 2.4 g/dL (3.2-5.0); Alkaline Phosphatase 23 U/L (45-117); Bilirubin, Direct 0.14 mg/dL (0.00-0.30); Globulin 2.6 g/dL (2.2-4.2)
[2023-10-07] MEDS: Insulin Lispro 100 UNIT/ML INSULN.PEN SC (20:36)
[2023-10-07] MEDS: Furosemide 40 MG/4 ML Vial IV (20:37)
[2023-10-07] MEDS: 0.9% Saline Lock 10 ML Syringe IV (20:37)
[2023-10-07] MEDS: Insulin Glargine-YFGN 100 UNIT/ML Pen 30 UNIT SC (20:52)
[2023-10-07] MEDS: Atorvastatin Calcium 10 MG Tablet 5 MG PO (20:52)
[2023-10-07] MEDS: Tamsulosin HCl 0.4 MG Capsule PO (20:52)
[2023-10-07] MEDS: Heparin Injection (Vial) 5,000 UNIT/ML VIAL 5000 UNIT SC (20:53)
[2023-10-07 21:17] LABS: Bedside Glucose 156 mg/dL (74-106)
[2023-10-08] VITALS (9 sets, daily range): BP systolic 93–111; BP diastolic 50–61; PULSE 64–80; RESP 16–20; TEMP 36.4–36.5; O2SAT 88–96; BMI 29.4
[2023-10-08 05:52] LABS: Absolute Lymphocyte Count 2.49 X10^3/uL (0.83-4.51); Absolute Neutrophil Count 6.5 X10^3/uL (2.0-7.7); Basophil# 0.03 X10^3/uL; Basophil% 0.3 % (0-1); Hematocrit 31.4 % (40-54); Hemoglobin 9.8 g/dL (13.0-16.5); Lymphocyte # 2.49 X10^3/ul (0.83-4.51); Lymphocyte % 25.5 % (19-41); Mean Corp Hgb Conc 31.2 g/dL (32-36); Mean Corpuscular Volume 83.3 fL (80-94); Mean Platelet Vol. 10.6 fl (6.2-12.0); Monocyte% 6.1 % (0-10); NRBC Flagged by Analyzer 0 % (0-5); Neutrophil # 6.51 X10^3/uL (2.7-7.7); Neutrophil % 66.6 % (47-70); Platelet Count 353 K/mm3 (150-450); RBC Distribution Width CV 16.3 % (11.6-14.6); RBC Distribution Width SD 50.1 fl (35.1-43.9); Red Blood Count 3.77 M/mm3 (4.6-6.2); White Blood Count 9.8 K/mm3 (4.4-11.0)
[2023-10-08] MEDS: Heparin Injection (Vial) 5,000 UNIT/ML VIAL 5000 UNIT SC ×4 (06:10→21:20)
[2023-10-08 06:29] LABS: ALB/GLOB Ratio 0.9 RATIO (0.9-2.4); AST(SGOT) 23 U/L (15-37); Alanine Aminotransfer ALT/SGPT 27 U/L (16-61); Alkaline Phosphatase 28 U/L (45-117); Anion Gap 6 (5-15); BUN 23 mg/dL (7-18); BUN/Creat Ratio 11.9 RATIO (10-20); Chloride 108 mmol/L (98-107); Creatinine, Serum 1.94 mg/dL (0.70-1.30); EST Glomerular Filtration Rate 35 mL/min (>60); Est Glom Filt Rate - Afr Amer 42 mL/min (>60); Estimated Creatinine Clearance 34.18 ml/min; Globulin 3.2 g/dL (2.2-4.2); Glucose 125 mg/dL (74-106); Magnesium 1.5 mg/dL (1.6-2.6); Phosphorus 4.3 mg/dL (2.5-4.9); Potassium 4.2 mmol/L (3.5-5.1); Protein, Total 6.2 g/dL (6.4-8.2); Sodium Level 141 mmol/L (136-145); Thyroid Stim Hormone (TSH) 2.43 uIU/mL (0.358-3.74)
[2023-10-08 06:39] LABS: Bedside Glucose 114 mg/dL (74-106)
[2023-10-08] MEDS: Aspirin E.C. 81 MG Tablet PO (07:55)
[2023-10-08] MEDS: Pantoprazole Sodium 40 MG Tablet PO (07:56)
[2023-10-08] MEDS: amLODIPine 5 MG Tablet PO (07:56)
[2023-10-08] MEDS: Ferrous Sulfate 325 MG Tablet PO (07:56)
[2023-10-08] MEDS: Tamsulosin HCl 0.4 MG Capsule PO ×2 (07:56→21:20)
--- NOTE | 2023-10-08 08:11 | PN.HOSP_ITS ---
Reason for Visit Reason for Visit: Diagnoses Elevated white blood cell count, unspecified (10/07/23) Calculus of kidney (10/07/23) Calculus of ureter (10/07/23) Hypoxemia (10/07/23) Other specified abnormal findings of blood chemistry (10/07/23) Subjective Subjective Patient was seen and examined today, he still remains on 2 L of oxygen at this time, we will attempt to wean him. Patient does not have a urologist in town currently, I will have Dr. Torres see the patient tomorrow for evaluation of his ureteral stones. Patient's was in the room at the time of my examination today, I answered medical questions that they had. Patient has no nausea and vomiting currently, he is on a diet. Objective Data Objective Data Vital Signs: Vital Signs Temp Pulse Resp BP Pulse Ox O2 Del Method O2 Flow Rate 97.7 F L 72 20 H 103/55 L 96 Nasal Cannula 2 10/08/23 06:15 10/08/23 06:15 10/08/23 06:15 10/08/23 06:15 10/08/23 06:15 10/08/23 07:40 10/08/23 07:40 Oxygen Flow Rate (L/min) 2 Oxygen Delivery Method Nasal Cannula Weight: 101.2 kg Body Mass Index (BMI) 29.4 Intake & Output: Intake and Output for Last 24 Hours 10/06/23 10/07/23 10/08/23 23:59 23:59 23:59 Intake Total 927.5 / 1407.5 720 / 720 Balance 927.5 / 1407.5 720 / 720 Lab / Micro Data 10/08/23 05:29 10/08/23 05:29 Labs: Laboratory Results - last 24 hr 10/07/23 14:10: WBC 14.0 H, RBC 4.46 L, Hgb 11.7 L, Hct 36.8 L, MCV 82.5, MCH 26.2 L, MCHC 31.8 L, RDW Std Deviation 48.7 H, RDW Coeff of Abdulaziz 16.1 H, Plt Count 408, MPV 10.4, Immature Gran % (Auto) 0.700, Neut % (Auto) 78.6 H, Lymph % (Auto) 14.8 L, [place] % (Auto) 5.3, Eos % (Auto) 0.4, Baso % (Auto) 0.2, Absolute Neuts (auto) 11.0 H, Absolute Lymphs (auto) 2.06, Nucleated RBC % 0, Sodium 139, Potassium 4.1, Chloride 104, Carbon Dioxide 26.0, Anion Gap 9, BUN 20 H, C reatinine 1.84 H, Est GFR (MDRD) Af Amer 45 L, Est GFR (MDRD) Non-Af 37 L, BUN/Creatinine Ratio 10.9, Glucose 165 H, Calcium 9.7 10/07/23 16:27: Urine Color Straw, Urine Clarity Clear, Urine pH 7.0, Ur Specific [place] 1.010, Urine Protein 15 H, Urine Glucose (UA) 50 H, Urine Ketones Negative, Urine Occult Blood 25 H, Urine Nitrite Negative, Urine Bilirubin Negative, Urine Urobilinogen Normal, Ur Leukocyte Esterase Negative, Urine RBC 0 SEEN, Urine WBC 0-5 SEEN, Ur Squamous Epith Cells 0 SEEN, Urine Bacteria RARE, Urine Mucus 0 SEEN 10/07/23 18:04: Total Bilirubin 0.30, Direct Bilirubin 0.14, AST 20, ALT 24, A lkaline Phosphatase 23 L, Troponin I High Sens 16, B-Natriuretic Peptide 60.8, T otal Protein 5.0 L, Albumin 2.4 L, Globulin 2.6 10/07/23 20:33: POC Glucose 156 H 10/08/23 05:29: WBC 9.8, RBC 3.77 L, Hgb 9.8 L, Hct 31.4 L, MCV 83.3, MCH 26.0 L , MCHC 31.2 L, RDW Std Deviation 50.1 H, RDW Coeff of Abdulaziz 16.3 H, Plt Count 353, MPV 10.6, Immature Gran % (Auto) 0.500, Neut % (Auto) 66.6, Lymph % (Auto) 25.5, [place] % (Auto) 6.1, Eos % (Auto) 1.0, Baso % (Auto) 0.3, Absolute Neuts (auto) 6.5, Absolute Lymphs (auto) 2.49, Nucleated RBC % 0, Sodium 141, Potassium 4.2, Chloride 108 H, Carbon Dioxide 27.0, Anion Gap 6, BUN 23 H, Creatinine 1.94 H, Estim Creat Clear Calc 34.18, Est GFR (MDRD) Af Amer 42 L, Est GFR (MDRD) Non-Af 35 L, BUN/Creatinine Ratio 11.9, Glucose 125 H, Calcium 9.0, Phosphorus 4.3, M agnesium 1.5 L, Total Bilirubin 0.40, AST 23, ALT 27, Alkaline Phosphatase 28 L, Total Protein 6.2 L, Albumin 3.0 L, Globulin 3.2, Albumin/Globulin Ratio 0.9, TSH 2.43 10/08/23 06:08: POC Glucose 114 H Micro: Microbiology 10/07/23 18:04 Mucosa - Nose SARS-CoV-2, Influenza & RSV (PCR) - Final Radiography Diagnostic Testing: Radiology Impression Abdomen/Pelvis CT 10/07/23 14:03 IMPRESSION: 5 mm stone in the right mid ureter and a 4 mm stone at the right ureterovesicular junction with mild right hydroureteronephrosis. Bilateral subcentimeter nonobstructing renal collecting system stones. No left ureteral stones. No left hydronephrosis. No bowel obstruction or inflammation. Normal appendix. Diverticulosis. Atherosclerosis and coronary artery disease. Electronically Signed: Solo Anderson MD at 16:16 EDT , Chest CTA 10/07/23 14:28 IMPRESSION: No pulmonary embolus. No thoracic aortic aneurysm or dissection. Coronary artery disease. No pulmonary infiltrates or pleural effusions. Elevation of the right hemidiaphragm. Bibasilar atelectasis Electronically Signed: Solo Anderson MD at 15:27 EDT , Physical Exam Const alert, oriented x3, no apparent distress and healthy appearing General Appearance: cooperative, well kempt and well developed Orientation / Consciousness: awake, oriented to person, oriented to place and oriented to time HEENT normocephalic, head/scalp atraumatic and moist oral mucous membranes Eyes PERRL, EOMs intact bilaterally and conjunctivae normal Neck supple, no JVD, thyroid normal and no carotid bruits General: trachea midline Resp normal respiratory effort, no retractions and no use of accessory muscles Resp Narrative: Patient has inspiratory rales at the bases bilaterally Auscultation: rales bilateral and localized (Lung bases); Negative for rhonchi or wheezes Cardio regular rate, regular rhythm, S1 normal heart sound, S2 normal heart sound, no murmurs, no rub and no gallops GI normal to inspection, nondistended, normoactive bowel sounds, soft to palpation, non-tender and non-distended Extremity no clubbing, cyanosis or edema Skin no rashes or lesions noted General Skin Exam: no breakdown Neuro oriented x3, CN's II-XII intact bilaterally, moves all extremities, no focal motor deficits and no sensory deficits noted Sensorium / Orientation: awake and alert Speech: speech normal Psych affect normal Assessment & Plan Assessment/Plan (1) Nausea and vomiting: PLAN: Plan 1. Nausea and vomiting-etiology unclear, resolved at this time, patient remains on a heart healthy diet. #2 hypoxia-etiology unclear, it may be due to atelectasis, I do not feel the patient has congestive heart failure at this time, patient's CTA did not show evidence of clot or infiltrate other than atelectasis. #3 ureteral stones-one 5 mm stone in the right mid ureter and a 4 mm stone at the right ureterovesical junction with mild right hydronephrosis no left hydronephrosis noted-patient will see urology tomorrow #4 type 2 diabetes-blood sugars will be monitored, sliding scale insulin will be used if necessary #5 hyperlipidemia-patient is on a statin #6 essential hypertension-patient is on amlodipine Total clinical time spent by myself addressing the patient's medical issues, reviewing all of his data, and collaborating with patient's care team: 35 minutes Charges/Coding Visit Charges Inpatient E&M: 32938 Subs Hosp L2
[2023-10-08 11:32] LABS: Bedside Glucose 141 mg/dL (74-106)
[2023-10-08] MEDS: Albuterol 2.5 MG/3 ML VIAL.NEB. INHALATION ×2 (15:41→20:07)
[2023-10-08 16:32] LABS: Bedside Glucose 135 mg/dL (74-106)
[2023-10-08] MEDS: Atorvastatin Calcium 10 MG Tablet 5 MG PO (21:20)
[2023-10-08] MEDS: Insulin Lispro 100 UNIT/ML INSULN.PEN SC (21:21)
[2023-10-08] MEDS: Insulin Glargine-YFGN 100 UNIT/ML Pen 30 UNIT SC (21:21)
[2023-10-08 22:04] LABS: Bedside Glucose 198 mg/dL (74-106)
[2023-10-08] MEDS: MELATONIN 3 MG TABLET PO (23:57)
[2023-10-08] MEDS: Acetaminophen 325 MG Tablet 650 MG PO (23:57)
[2023-10-09] VITALS (12 sets, daily range): BP systolic 102–151; BP diastolic 51–89; PULSE 60–79; RESP 16–18; TEMP 36.3–37; O2SAT 90–97; BMI 29.2
--- NOTE | 2023-10-09 04:06 | EKG12_ITS ---
Test Reason : CP Blood Pressure : / mmHG Vent. Rate : 063 BPM Atrial Rate : 063 BPM P-R Int : 328 ms QRS Dur : 096 ms QT Int : 406 ms P-R-T Axes : 000 -46 095 degrees QTc Int : 415 ms Sinus rhythm with 1st degree A-V block Left anterior fascicular block When compared with ECG of 07-OCT-2023 17:48, MANUAL COMPARISON REQUIRED, DATA IS UNCONFIRMED Confirmed by ERNESTO CABELLO, BERT ([id number]), acquisitions editor PARMINDER BATES ([id number]) on 10/09/2023 1:01:45 PM Referred By: Confirmed By:BERT OROZCO MD
[2023-10-09 06:38] LABS: Bedside Glucose 92 mg/dL (74-106)
[2023-10-09] MEDS: Albuterol 2.5 MG/3 ML VIAL.NEB. INHALATION (07:11)
--- NOTE | 2023-10-09 07:40 | PCM.CONS.U ---
Assessment & Plan Assessment/Plan (1) Nephrolithiasis: PLAN: Obstructing right ureteral calculi in the mid ureter and distal ureter plan for cystoscopy and stent placement today n.p.o. for surgery. HPI Consult Data Date of Consult: 10/09/23 HPI Narrative Reason for Consultation: Obstructing right ureteral calculi HPI Narrative: JUAN M RODRIGUEZ, is a 87 M who presents to the hospital with 2 stones 1 in the distal right ureter very small and another stone in the mid ureter that larger causing obstruction and hydronephrosis he did come in with hypoxia which has improved but he does have obstruction and there is concern for infection plan to proceed with cystoscopy and stent placement today talk to the patient and make sure he is agreeable with this we will set him up for laser of the stone later on. [facility] Medical History First degree heart block COVID-19 Sepsis Hypomagnesemia History of colon polyps CKD (chronic kidney disease) Benign prostatic hyperplasia Anemia Acute pancreatitis Kidney stones Dyslipidemia Nausea Diarrhea GERD (gastroesophageal reflux disease) High cholesterol HTN (hypertension) Diabetes Home Medications ?Medication ?Instructions ?Recorded ?Last Taken ?Type aspirin 81 mg tablet,delayed 81 mg PO DAILY 05/17/20 Unknown History release ferrous sulfate 325 mg (65 mg 325 mg PO DAILY@0800 05/17/20 Unknown History iron) tablet glimepiride 1 mg tablet 1 mg PO BID 05/17/20 Unknown History insulin aspart U-100 100 unit/mL 6 unit SQ TID 05/17/20 Unknown History subcutaneous solution insulin glargine 100 unit/mL (3 30 unit SQ QHS 05/17/20 Unknown History mL) subcutaneous pen lovastatin 20 mg tablet 20 mg PO DAILY 05/17/20 Unknown History metformin 1,000 mg tablet 1,000 mg PO BID 05/17/20 Unknown History omeprazole 20 mg tablet,delayed 40 mg PO DAILY 05/17/20 Unknown History release amlodipine 5 mg tablet 5 mg PO DAILY 06/17/21 Unknown History Allergy/AdvReac Type Severity Reaction Status Date / Time hydromorphone (From Dilaudid) Allergy NEEDS Verified 10/07/23 13:51 FOLLOW-UP lisinopril Allergy Angioedema Verified 10/07/23 13:51 Penicillins Allergy Rash Verified 07/20/24 13:51 Family History Father Hypertension TIA (transient ischemic attack) Sister CAD (coronary artery disease) Diabetes COPD (chronic obstructive pulmonary disease) Lung cancer Surgical History H/O inguinal hernia repair History of cholecystectomy Social History household members: spouse housing: house Smoking Status: Current every day smoker tobacco type: cigars alcohol intake: current alcohol intake frequency: 0-2 drinks per day substance use type: does not use Lab / Micro Data 10/08/23 05:29 10/08/23 05:29 Labs: Laboratory Results - last 24 hr 10/08/23 11:11: POC Glucose 141 H 10/08/23 16:10: POC Glucose 135 H 10/08/23 21:18: POC Glucose 198 H 10/09/23 06:18: POC Glucose 92
--- NOTE | 2023-10-09 10:48 | EKG12_ITS ---
Test Reason : Blood Pressure : / mmHG Vent. Rate : 063 BPM Atrial Rate : 063 BPM P-R Int : 362 ms QRS Dur : 094 ms QT Int : 408 ms P-R-T Axes : 069 -48 083 degrees QTc Int : 417 ms Sinus rhythm with 1st degree A-V block Left anterior fascicular block Nonspecific ST and T wave abnormality Abnormal ECG When compared with ECG of 09-OCT-2023 04:15, MANUAL COMPARISON REQUIRED, DATA IS UNCONFIRMED Confirmed by ERNESTO CABELLO, BERT ([id number]), editor dictionary PARMINDER BATES ([id number]) on 10/10/2023 8:26:41 AM Referred By: GUNNAR Confirmed By:BERT OROZCO MD
--- NOTE | 2023-10-09 11:24 | CASEMGMT ---
HÉCTOR MONTE Assessment Face to Face with patient for initial transition planning/care coordination assessment. HÉCTOR MONTE introduced self and role at [facility], pt voices understanding. Pt is A&Ox4 and is resting comfortably in bed and is calm. Pt at bedside. Care providers, pharmacy, and demographics verified. Admitting dx: Acute Hypoxia LACE Strata: 2 PCP: Taye Lyons Specialists: Melissa is consulted on the pt during this stay. Pt also states that he used to see Dermatology. Denies further needs Preferred Pharmacy: [facility] Insurance: [employer], [facility] [place] Prescription Benefit: Yes LNOK: Mckenzie Vázquez (W), Rodo Vázquez (Son) Living Arrangements: Pt lives with his and adult son in a two story home with 1 step to enter ADLs/IADLs: States independent Transportation: Self, Son. Denies concerns at this time DME: Cane. Shower chair. BP Monitor. Pt is currently on room air but may qualify for home oxygen. A verbal list of local in-network DME companies provided to the pt at this time. Pt prefers [facility] if he qualifies for home oxygen. HHC/SNF: Denies history or needs Pt?s goal: Home Plan: Pt is scheduled to get stents placed today at 1230. PT is recommending OP Tx for this pt after DC. This HÉCTOR MONTE reviewed this with the pt and the pt refuses this need. Pt states that he does not need or want any sort of HHC or OP therapy set up at this time. Pt states that he would eventually like to DC home with his family support. Pt educated to contact this HÉCTOR MONTE in the case that he changes his mind. Business card given. CM to follow pt progression in the hospital as well as oxygen demands to ensure safe DC from [facility]. Servando Funes RN, CM
[2023-10-09 11:26] LABS: Absolute Lymphocyte Count 1.96 X10^3/uL (0.83-4.51); Absolute Neutrophil Count 3.8 X10^3/uL (2.0-7.7); Basophil# 0.05 X10^3/uL; Basophil% 0.8 % (0-1); Eosinophil# 0.17 X10^3/uL; Eosinophils% 2.7 % (0-5); Hematocrit 32.1 % (40-54); Lymphocyte # 1.96 X10^3/ul (0.83-4.51); Lymphocyte % 30.9 % (19-41); Mean Corp Hgb Conc 31.2 g/dL (32-36); Mean Corpuscular Hgb 25.8 pg (27.0-32.0); Mean Corpuscular Volume 82.9 fL (80-94); Mean Platelet Vol. 10.4 fl (6.2-12.0); Monocyte# 0.38 X10^3/uL; NRBC Flagged by Analyzer 0 % (0-5); Neutrophil # 3.76 X10^3/uL (2.7-7.7); Neutrophil % 59.1 % (47-70); Platelet Count 322 K/mm3 (150-450); RBC Distribution Width CV 16.1 % (11.6-14.6); RBC Distribution Width SD 48.5 fl (35.1-43.9); Red Blood Count 3.87 M/mm3 (4.6-6.2); White Blood Count 6.4 K/mm3 (4.4-11.0)
[2023-10-09 11:44] LABS: Anion Gap 7 (5-15); BUN 27 mg/dL (7-18); BUN/Creat Ratio 13.4 RATIO (10-20); Chloride 107 mmol/L (98-107); Creatinine, Serum 2.01 mg/dL (0.70-1.30); EST Glomerular Filtration Rate 34 mL/min (>60); Est Glom Filt Rate - Afr Amer 41 mL/min (>60); Estimated Creatinine Clearance 33.32 ml/min; Glucose 108 mg/dL (74-106); Sodium Level 140 mmol/L (136-145)
[2023-10-09] MEDS: amLODIPine 5 MG Tablet PO (11:57)
[2023-10-09 13:02] LABS: Magnesium 1.9 mg/dL (1.6-2.6)
[2023-10-09 15:03] LABS: Bedside Glucose 96 mg/dL (74-106)
--- NOTE | 2023-10-09 15:57 | PCM.PRE.AN2 ---
ASA Classification* ASA Classification ASA Classification: 3 Assessment & Plan Anesthesia* Anesthesia Assessment Anesthesia Assessment: Discussed sedation and/or anesthesia options, risks, benefits, and alternatives with patient/parents/legal guardian/POA. Questions invited. The patient/parents/legal guardian/POA seems to understand and agrees to proceed with anesthesia plan. Reviewed the physical assessment, medical history, allergy history and patient home medications list prior to surgery/procedure/anesthetic and documented any changes. Performed airway and anesthesia risk assessments. Anesthesia Type Anesthesia Type: MAC History Source History Obtained from:: Patient and Chart Anesthesia Focused Assessment* Temperature: 98.2 F Pulse Rate: 79 Blood Pressure: 114/59 Respiratory Rate: 16 Pulse Ox: 95 Oxygen Delivery Method: Room Air Airway Assessment Mouth opens: >3 cm Mallampati Score: II Teeth Condition: Caps/Crowns (Crowns are tight) Neck Range of motion (ROM): Limited ROM Pertinent Findings EKG Pertinent Findings:: October 09, 2023. 12:09 PM sinus rhythm with first-degree AV block. Left anterior fascicular block. Nonspecific ST and T wave abnormalities ECHO Pertinent Findings:: October 09, 2023. Ejection fraction 60% pulmonary artery systolic pressure is 30 mmHg. Focused Labs Anesthesia Preop lab: CBC WBC 6.4 K/mm3 (4.4-11.0) 10/09/23 11:10 RBC 3.87 M/mm3 (4.6-6.2) L 10/09/23 11:10 Hgb 10.0 g/dL (13.0-16.5) L 10/09/23 11:10 Hct 32.1 % (40-54) L 10/09/23 11:10 Plt Count 322 K/mm3 (150-450) 10/09/23 11:10 CHEMISTRY Potassium 4.0 mmol/L (3.5-5.1) 10/09/23 11:10 Sodium 140 mmol/L (136-145) 10/09/23 11:10 Magnesium 1.9 mg/dL (1.6-2.6) 10/09/23 11:10 Phosphorus 4.3 mg/dL (2.5-4.9) 10/08/23 05:29 BUN 27 mg/dL (7-18) H 10/09/23 11:10 Creatinine 2.01 mg/dL (0.70-1.30) H 10/09/23 11:10 Glucose 108 mg/dL (74-106) H 10/09/23 11:10 POC Glucose 96 mg/dL (74-106) 10/09/23 11:51 TSH 2.43 uIU/mL (0.358-3.74) 10/08/23 05:29 COAG Pre-Assessment Diagnosis/Proposed Procedure Planned Operative Procedure(s): Cystoscopy with right stent placement Anesthesia History 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 When Was Last Pacemaker Check QUESTION #4 FULL TEXT: You/Your Family Experience fever (hyperthermia) with Anesthesia Last Oral Intake Last Oral intake: Last Oral Intake NPO since 07:00 10/09/23 08:17 Meds taken in AM with sips of Yes 10/09/23 08:17 water? Meds patient instructed to amlodipine 10/09/23 08:17 take am of surgery PONV PONV - junior manufacturing engineer: PONV - junior manufacturing engineer Female HX of Motion Sickness HX of N/V After Surgery Non-Smoker Duration of Surgery greater than 60 minutes Number of Risk Factors PONV Score Height & Weight Height & Weight: Anesthesia: Height & Weight Height 6 ft 2 in 10/09/23 08:17 Weight: 103.4 kg 10/09/23 08:17 Body Mass Index (BMI) 29.2 10/09/23 08:17 Respiratory Assessment Respiratory Assessment - junior manufacturing engineer: Respiratory Tract Infection Hx - junior manufacturing engineer Hx Respiratory Tract Infection No 10/09/23 08:17 STOP Sleep Apnea STOP Sleep Apnea - junior manufacturing engineer: STOP Sleep Apnea - junior manufacturing engineer Hx Hypertension Yes 10/08/23 11:26 Hx Sleep Apnea No 10/07/23 19:51 CPAP BIPAP Do you snore loudly (louder No 10/07/23 19:51 than talking or can be heard Do you often feel tired/ Yes 10/07/23 19:51 fatigued/ sleepy during daytime? Has anyone observed you stop No 10/07/23 19:51 breathing during sleep? STOP Results Positive 10/07/23 19:51 QUESTION #5 FULL TEXT : Do you snore loudly (louder than talking or can be heard through closed doors)? 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 Specify any problems Hx of Preganancy in last 3 N/A 10/07/23 19:51 Months Nurse Filling Out Transfusion [id number] 10/07/23 19:51 & Questions: Date: 10/07/23 10/07/23 19:51 Time: 20:19 10/07/23 19:51 Patient unable to answer at this time (ie. confused, unrespo /Reproduction History /Reproductive History - junior manufacturing engineer: /Reproductive Hx- junior manufacturing engineer Hx Now No 10/09/23 08:17 Gestational Age (in weeks): EDC: Hx Hx Para Hx Section SAB No 10/09/23 08:17 Active Medications Active Medications: Current Medications Generic Name Dose Route Start Last Admin Trade Name Freq PRN Reason Stop Dose Admin Acetaminophen 650 mg 10/07/23 19:55 10/08/23 23:57 Acetaminophen 325 Mg Tablet PO 650 mg Q6H PRN PRN Administration Pain 1-10 Or Fever>100.7 Albuterol Sulfate 2.5 mg 10/07/23 19:55 Albuterol 2.5 Mg/3 Ml Vial.Neb. INHALATION Q2H PRN PRN SOB &/OR WHEEZING Albuterol Sulfate 2.5 mg 10/08/23 08:00 10/09/23 07:11 Albuterol 2.5 Mg/3 Ml Vial.Neb. INHALATION 2.5 mg Q4H.RT IRIS Administration Amlodipine Besylate 5 mg 10/08/23 10:00 10/09/23 11:57 Amlodipine 5 Mg Tablet PO 5 mg DAILY IRIS Administration Protocol Aspirin 81 mg 10/08/23 08:00 10/09/23 09:41 Aspirin E.C. 81 Mg Tablet PO Not Given DAILYCM IRIS Atorvastatin Calcium 5 mg 10/07/23 22:00 10/08/23 21:20 Atorvastatin Calcium 10 Mg Tablet PO 5 mg QHS IRIS Administration Ferrous Sulfate 325 mg 10/08/23 08:00 10/09/23 09:41 Ferrous Sulfate 325 Mg Tablet PO Not Given DAILY@0800 IRIS Glucagon 1 mg 10/07/23 19:55 Glucagon 1 Mg/Ml Syringe IM X1 PRN HYPOGLYCEMIA Protocol Guaifenesin 20 ml 10/07/23 19:55 Guaifenesin 10 Ml Udc (200mg/10ml) PO Q4H PRN PRN COUGH Heparin Sodium (Porcine) 5,000 unit 10/07/23 22:00 10/09/23 14:58 Heparin Injection (Vial) 5,000 Unit/Ml Vial SC Not Given Q8 IRIS Dextrose 250 mls @ 0 mls/hr 10/07/23 19:55 Dextrose 10%-Water IV .Q0M PRN HYPOGLYCEMIA Protocol As Directed Sodium Chloride 1,000 mls @ 15 mls/hr 10/09/23 15:55 IV .Q48H IRIS Insulin Glargine 30 unit 10/07/23 22:00 10/08/23 21:21 Insulin Glargine-Yfgn 100 Unit/Ml Pen SC 30 unit QHS IRIS Administration Insulin Human Lispro 0 unit 10/07/23 22:00 10/09/23 11:59 Insulin Lispro 100 Unit/Ml Insuln.Pen SC Not Given ACHS IRIS Protocol Melatonin 3 mg 10/07/23 19:55 10/08/23 23:57 Melatonin 3 Mg Tablet PO 3 mg QHS PRN PRN Administration INSOMNIA Ondansetron HCl 4 mg 10/07/23 19:55 Ondansetron 4 Mg/2 Ml Vial IV Q8H PRN PRN NAUSEA/VOMITING Pantoprazole Sodium 40 mg 10/08/23 10:00 10/09/23 09:41 Pantoprazole Sodium 40 Mg Tablet PO Not Given DAILY [facility] Senna/Docusate Sodium 2 tablet 10/07/23 19:55 Senna/Docusate Sodium 1 Tablet PO BID PRN PRN Constipation Sodium Chloride 10 - 40 ml 10/07/23 19:52 10/07/23 20:37 0.9% Saline Lock 10 Ml Syringe IV 10 ml UD PRN Administration SALINE FLUSH Tamsulosin HCl 0.4 mg 10/07/23 22:00 10/09/23 09:41 Tamsulosin Hcl 0.4 Mg Capsule PO Not Given BID [facility] PFSH Medical History First degree heart block COVID-19 Sepsis Hypomagnesemia History of colon polyps CKD (chronic kidney disease) Benign prostatic hyperplasia Anemia Acute pancreatitis Kidney stones Dyslipidemia Nausea Diarrhea GERD (gastroesophageal reflux disease) High cholesterol HTN (hypertension) Diabetes Home Medications ?Medication ?Instructions ?Recorded ?Last Taken ?Type aspirin 81 mg tablet,delayed 81 mg PO DAILY 05/17/20 Unknown History release ferrous sulfate 325 mg (65 mg 325 mg PO DAILY@0800 05/17/20 Unknown History iron) tablet glimepiride 1 mg tablet 1 mg PO BID 05/17/20 Unknown History insulin aspart U-100 100 unit/mL 6 unit SQ TID 05/17/20 Unknown History subcutaneous solution insulin glargine 100 unit/mL (3 30 unit SQ QHS 05/17/20 Unknown History mL) subcutaneous pen lovastatin 20 mg tablet 20 mg PO DAILY 05/17/20 Unknown History metformin 1,000 mg tablet 1,000 mg PO BID 05/17/20 Unknown History omeprazole 20 mg tablet,delayed 40 mg PO DAILY 05/17/20 Unknown History release amlodipine 5 mg tablet 5 mg PO DAILY 06/17/21 Unknown History Allergy/AdvReac Type Severity Reaction Status Date / Time hydromorphone (From Dilaudid) Allergy NEEDS Verified 10/07/23 13:51 FOLLOW-UP lisinopril Allergy Angioedema Verified 10/07/23 13:51 Penicillins Allergy Rash Verified 10/07/23 13:51 Family History Father Hypertension TIA (transient ischemic attack) Sister CAD (coronary artery disease) Diabetes COPD (chronic obstructive pulmonary disease) Lung cancer Surgical History H/O inguinal hernia repair History of cholecystectomy Social History household members: spouse housing: house Smoking Status: Current every day smoker tobacco type: cigars alcohol intake: current alcohol intake frequency: 0-2 drinks per day substance use type: does not use Review of Systems (Anesthesia) ROS Narrative System reviewed and no additional complaints, except as documented.
[2023-10-09] MEDS: 0.9% Normal Saline (1000mL) 1,000 ML 15 ML IV (15:59)
--- NOTE | 2023-10-09 16:39 | PCM.OPRPT ---
Report of Operation Date of Procedure: 10/09/23 Pre-Operative Diagnosis: Obstructing right ureteral calculi Post-Operative Diagnosis: The same Surgery/Procedure Performed:: Cystoscopy, right retrograde pyelogram and right stent placement Description of Surgical Findings:: This 87-year-old male with obstructing stones in the right ureter and leukocytosis came in with not feeling well hypoxia concern for an infection in the right kidney so today we will place a stent on the right side. Patient was taken back to the operative room at a smooth induction of anesthesia he was placed in dorsolithotomy position. Went into the bladder with a 21 Frisian rigid cystourethroscope has evidence he had prior prostate surgery with a laser wide open channel I then cannulated the right ureteral orifice with a Glidewire performed a retrograde pyelogram see contrast going up to the kidney there was minimal hydronephrosis he did have stone seen on CAT scan in the mid ureter I then put a wire up on the right side really could not identify any stones a retrograde was hard to tell for sure but we put a wire and of the wire placed a stent and then the stent coiled in the kidney and bladder good position. The patient come back in about a week for ureteroscopy laser lithotripsy and stent removal. Surgeon: Adal Torres Type of Anesthesia: General Admit VTE Documentation VTE Present on Admission: No VTE Mechan Device Prophylaxis: SCD's VTE Pharm Prophylaxis ordered?: No
--- NOTE | 2023-10-09 16:44 | PCM.POST.ANE ---
Anesthesia: Postop Eval I Current Vital Signs Temperature: 98.6 F Pulse Rate: 65 Blood Pressure: 120/54 Respiratory Rate: 16 Pulse Ox: 92 Oxygen Delivery Method: Room Air Assessment Airway patent: Yes Spontaneous unlabored respirations: Yes Mental status: Awake and Calm nausea: No Vomiting: No Anesthesia Complication: No Fluid Hydration Crystalloid volume administer (ml): 400 Total IV fluid infused: 400 Progress Note Anesthesia document: Postop Eval 1 completed: Yes
--- NOTE | 2023-10-09 17:00 | DCINST_ITS ---
Discharge Instructions Diet Discharge Diet: 1800 Calorie Control Diet Activity Discharge Activity: Return to Normal Activity Weight Bearing Status: Full weight bearing Follow Up Care Test Results: Test results from this visit will be discussed in further detail at your follow- up appointment, if applicable. Discharge Plan Admission Admit Date/Time: 10/07/23 19:05 Primary Reason for Your Visit: Right ureteral calculus with hydronephrosis Attending Provider: Wolfgang Cisneros Primary Care Provider: Taye Lyons Consulting Providers: Leyla Do; Adal Torres Discharge Orders/Prescriptions Prescriptions: New cephalexin 500 mg tablet 500 mg PO BID Qty: 11 0RF Rx Instructions: start on 10/09/23 Continued aspirin 81 MG tablet,delayed release (DR/EC) 81 mg PO DAILY glimepiride 1 MG tablet 1 mg PO BID insulin aspart U-100 100 UNIT/ML solution 6 unit SQ TID ferrous sulfate 325 MG tablet 325 mg PO DAILY@0800 metformin 1,000 MG tablet 1,000 mg PO BID lovastatin 20 MG tablet 20 mg PO DAILY insulin glargine 100 UNIT/ML insulin pen 30 unit SQ QHS omeprazole 20 MG tablet,delayed release (DR/EC) 40 mg PO DAILY amlodipine 5 mg tablet 5 mg PO DAILY Referrals / Follow Up: Taye Lyons MD [Primary Care Provider] - Within 2 Weeks Adal Torres MD [Med Staff - Active Staff] - See Referral Note (Follow-up with Dr. Torres has instructed, if the office does not contact you by Monday, please call the office for follow-up instructions) Disposition Disposition (needs filled in before D/C Order can be placed): Home, Self Care
--- NOTE | 2023-10-09 17:08 | DS.PCM_ITS ---
Providers Date of Admission: 10/07/23 Date of Discharge: 10/09/23 Primary Care Physician: Dr. Taye Lyons MD Consultations 10/08/23 13:20 Consult: Urology Routine Consulting Provider: Adal Torres Reason for Consult: ureteral stones EMERGENT Consult: No MD Notified: Yes Date Notified: 10/09/23 Time Notified: 07:37 Method of Notification: Verbal Reason For Visit: ACUTE HYPOXIA Diagnosis Discharge Diagnosis (1) Nephrolithiasis: Status: Acute Code(s): N20.0 - Calculus of kidney Plan 1. Nausea and vomiting-etiology unclear, resolved at this time, patient remains on a heart healthy diet. 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 #8 intermittent Mobitz 1 second-degree AV block Total clinical time spent by myself addressing the patient's medical issues, reviewing all of his data, and collaborating with patient's care team: 35 minutes Medications at Discharge Home Medications aspirin 81 mg tablet,delayed release 81 mg PO DAILY 05/17/20 ferrous sulfate 325 mg (65 mg iron) tablet 325 mg PO DAILY@0800 05/17/20 glimepiride 1 mg tablet 1 mg PO BID 05/17/20 insulin aspart U-100 100 unit/mL subcutaneous solution 6 unit SQ TID 05/17/20 insulin glargine 100 unit/mL (3 mL) subcutaneous pen 30 unit SQ QHS 05/17/20 lovastatin 20 mg tablet 20 mg PO DAILY 05/17/20 metformin 1,000 mg tablet 1,000 mg PO BID 05/17/20 omeprazole 20 mg tablet,delayed release 40 mg PO DAILY 05/17/20 amlodipine 5 mg tablet 5 mg PO DAILY 06/17/21 cephalexin 500 mg tablet 500 mg PO BID #11 tabs 10/09/23 Hospital Course Operations - (Right ureteral stent placement, right retrograde pyelogram) Summary of Care Provided Minutes Spent on Discharge: 31 Hospital Course: This 87-year-old white male was seen in the emergency [place] [facility] [place] history of right lateral abdominal pain near the waist area, patient denied any dysuria. Patient complained of nausea but no vomiting. CBC showed an elevated white blood cell count of 14, hemoglobin was 11.7, creatinine was elevated at 1.84 and BUN was 20. There were no red blood cells in the urine, 0-5 white blood cells and rare bacteria. CT of the abdomen and pelvis showed a 5 mm stone in the right mid ureter and a 4 mm stone at the right ureterovesical junction with mild right hydronephrosis. There were noted to be bilateral subcentimeter nonobstructing renal collecting system stones. Patient was noted to have a pulse ox of 82% on room air., This was rechecked and noted to be 85% on room air later on. Patient was placed on 2 L via nasal cannula, CTA of the chest was obtained-no pulmonary embolus was noted, there is no pulmonary infiltrates or pleural effusion, there is elevation of the right hemidiaphragm with bibasilar atelectasis. Patient was admitted to PCU, pulse ox was monitored and the patient was eventually weaned off oxygen, he was placed on aerosol treatments during his hospitalization. Patient was seen in consultation by urology on 10/09/2023, he was taken to surgery and a right retrograde pyelogram was performed with insertion of a right ureteral stent. Patient tolerated the procedure well and there were no complications. Patient was on telemetry during his hospitalization and he had brief periods of Mobitz type I second-degree AV block. Patient was asymptomatic during these episodes. On 10/09/2023, patient was seen and examined: On examination he appeared in good health and spirits. Vital signs as documented. Skin warm and dry and without overt rashes. Neck without JVD, neck was supple, trachea midline, thyroid was normal. Lungs clear bilaterally, normal air movement was noted. Heart exam notable for regular rhythm, normal sounds and absence of murmurs, rubs or gallops. Abdomen unremarkable and without evidence of organomegaly, masses, or abdominal aortic enlargement. Bowel sounds are present, abdomen is not distended. Extremities nonedematous, no cyanosis was noted, no clubbing was noted. Neuro: Cranial nerves II through XII are grossly intact, no focal motor deficits were noted, sensation to light touch and pinprick intact, motor exam 5/5 throughout. Psych: Patient is alert and oriented x3, he does not appear anxious or depressed, he does not appear agitated. Patient was discharged home in stable condition on 10/09/2023. Weight / BMI Weight Weight: 103.4 kg Body Mass Index (BMI) 29.2 ABG / Lab / Microbiology Data 10/09/23 11:10 10/09/23 11:10 Laboratory: Laboratory Results - last 24 hr 10/08/23 21:18: POC Glucose 198 H 10/09/23 06:18: POC Glucose 92 10/09/23 11:10: WBC 6.4, RBC 3.87 L, Hgb 10.0 L, Hct 32.1 L, MCV 82.9, MCH 25.8 L, MCHC 31.2 L, RDW Std Deviation 48.5 H, RDW Coeff of Abdulaziz 16.1 H, Plt Count 322, MPV 10.4, Immature Gran % (Auto) 0.500, Neut % (Auto) 59.1, Lymph % (Auto) 30.9, Reagan % (Auto) 6.0, Eos % (Auto) 2.7, Baso % (Auto) 0.8, Absolute Neuts (auto) 3.8, Absolute Lymphs (auto) 1.96, Nucleated RBC % 0, Sodium 140, Potassium 4.0, Chloride 107, Carbon Dioxide 26.0, Anion Gap 7, BUN 27 H, C reatinine 2.01 H, Estim Creat Clear Calc 33.32, Est GFR (MDRD) Af Amer 41 L, Est GFR (MDRD) Non-Af 34 L, BUN/Creatinine Ratio 13.4, Glucose 108 H, Calcium 9.0, Magnesium 1.9 10/09/23 11:51: POC Glucose 96 Microbiology: Microbiology 10/07/23 18:04 Mucosa - Nose SARS-CoV-2, Influenza & RSV (PCR) - Final Radiography Diagnostic Testing: Radiology Impression Echocardiogram 10/07/23 19:12 Interpretation Summary Normal LV size. Left ventricular systolic function is normal. The estimated ejection fraction is 60 %. Moderate concentric left ventricular hypertrophy. Stage 1 diastolic dysfunction. Ordering Physician: Leyla Do Referring Physician: Taye Lyons Performed By: Stefanie Guan RDCS and Student D/C Instructions Discharge Diet: 1800 Calorie Control Diet Weight Bearing Status: Full weight bearing Meaningful Use Info Meaningful Use Meaningful Use Diagnoses (Choose all that apply): None applicable Ischemic Stroke Statin Dosing Therapy Reference: STATIN DOSE THERAPY REFERENCE: * Patients > 75 years receive moderate or high dose statin therapy. * Patients 75 years or YOUNGER should receive HIGH intensity statin dose unless contraindicated. You will be required to document reason for non-treatment if statin daily dose does not meet guidelines. HIGH DOSE STATIN THERAPY DAILY Atorvastatin > than or = to 40 mg Rosuvastatin > than or = to 20 mg Amlodipine + Atorvastatin > than or = to 2.5/40 mg Ezetimibe + Simvastatin 10/80 mg Simvastatin 80mg Discharge Plan Admission Admit Date/Time: 10/07/23 19:05 Primary Reason for Your Visit: Right ureteral calculus with hydronephrosis Attending Provider: Wolfgang Cisneros Primary Care Provider: Taye Lyons Consulting Providers: Leyla Do; Adal Torres Discharge Orders/Prescriptions Prescriptions: New cephalexin 500 mg tablet 500 mg PO BID Qty: 11 0RF Rx Instructions: start on 10/09/23 Continued aspirin 81 MG tablet,delayed release (DR/EC) 81 mg PO DAILY glimepiride 1 MG tablet 1 mg PO BID insulin aspart U-100 100 UNIT/ML solution 6 unit SQ TID ferrous sulfate 325 MG tablet 325 mg PO DAILY@0800 metformin 1,000 MG tablet 1,000 mg PO BID lovastatin 20 MG tablet 20 mg PO DAILY insulin glargine 100 UNIT/ML insulin pen 30 unit SQ QHS omeprazole 20 MG tablet,delayed release (DR/EC) 40 mg PO DAILY amlodipine 5 mg tablet 5 mg PO DAILY Referrals / Follow Up: Taye Lyons MD [Primary Care Provider] - Within 2 Weeks Adal Torres MD [Med Staff - Active Staff] - See Referral Note (Follow-up with Dr. Torres has instructed, if the office does not contact you by Monday, please call the office for follow-up instructions) Disposition Disposition (needs filled in before D/C Order can be placed): Home, Self Care Charges/Coding Visit Charges Inpatient E&M: 39998 Disch Hosp >30min
[2023-10-09 19:48] LABS: Bedside Glucose 100 mg/dL (74-106)
--- NOTE | 2023-10-10 09:30 | POSTOPAN2_ITS ---
Anesthesia Postop Eval I Sum Postop Eval Completion status Anesthesia document: Postop Eval 1 completed: Yes Anesthesia Postop Eval I Summary Anesthesia Postop Eval I Summary: Anesthesia Postop Eval I: Assessment Summary Airway patent Yes 10/09/23 16:44 DATA OPERATIONS MANAGER.MDOT Spontaneous unlabored Yes 10/09/23 16:44 DATA OPERATIONS MANAGER.MDOT respirations Mental status Awake,Calm 10/09/23 16:44 DATA OPERATIONS MANAGER.MDOT nausea No 10/09/23 16:44 DATA OPERATIONS MANAGER.MDOT Vomiting No 10/09/23 16:44 DATA OPERATIONS MANAGER.MDOT Anesthesia Postop Eval I: Fluid Summary Crystalloid volume administer 400 10/09/23 16:44 DATA OPERATIONS MANAGER.MDOT (ml) Colloids volume administered ( ml) Blood Product volume administered (ml) Total IV fluid infused 400 10/09/23 16:44 DATA OPERATIONS MANAGER.OT Anesthesia Postop Eval I: Summary Notes Anesthesia Complication No 10/09/23 16:44 DATA OPERATIONS MANAGER.OT Anesthesia Complication Comment: Post-operative progress note Anesthesia: Postop Eval II Evaluation Mental status: Awake and Calm Pain Level: 1 nausea: No Vomiting: No Complications Anesthesia Complication: No
--- NOTE | 2023-10-10 09:30 | PCM.POSTANE2 ---
Anesthesia Postop Eval I Sum Postop Eval Completion status Anesthesia document: Postop Eval 1 completed: Yes Anesthesia Postop Eval I Summary Anesthesia Postop Eval I Summary: Anesthesia Postop Eval I: Assessment Summary Airway patent Yes 10/09/23 16:44 LEAD CASHIER.MDOT Spontaneous unlabored Yes 10/09/23 16:44 LEAD CASHIER.MDOT respirations Mental status Awake,Calm 10/09/23 16:44 LEAD CASHIER.MDOT nausea No 10/09/23 16:44 LEAD CASHIER.MDOT Vomiting No 10/09/23 16:44 LEAD CASHIER.MDOT Anesthesia Postop Eval I: Fluid Summary Crystalloid volume administer 400 10/09/23 16:44 LEAD CASHIER.MDOT (ml) Colloids volume administered ( ml) Blood Product volume administered (ml) Total IV fluid infused 400 10/09/23 16:44 LEAD CASHIER.OT Anesthesia Postop Eval I: Summary Notes Anesthesia Complication No 10/09/23 16:44 LEAD CASHIER.OT Anesthesia Complication Comment: Post-operative progress note Anesthesia: Postop Eval II Evaluation Mental status: Awake and Calm Pain Level: 1 nausea: No Vomiting: No Complications Anesthesia Complication: No
== END 2023-10-09 18:34 | disposition home or self-care (01) | DRG 988 ==
LOC: ED 19:20 → PCU 19:30
PROVIDERS: Urology; Admitting Provider Internal Medicine; Emergency Provider Emergency Medicine; PCP Family Medicine; Visit Provider Internal Medicine
PROC: 0T768DZ Dilation of Right Ureter with Intraluminal Device, Via Natural or Artificial Opening Endoscopic (ICD-10-PCS; CPT 52332; principal; 2023-10-09 16:20)
DX: J98.11 Atelectasis (principal); N13.2 Hydronephrosis with renal and ureteral calculous obstruction; I44.1 Atrioventricular block, second degree; E11.22 Type 2 diabetes mellitus with diabetic chronic kidney disease; N18.32 Chronic kidney disease, stage 3b; Z79.4 Long term (current) use of insulin; I12.9 Hypertensive chronic kidney disease with stage 1 through stage 4 chronic kidney disease, or unspecified chronic kidney disease; E78.00 Pure hypercholesterolemia, unspecified; F17.290 Nicotine dependence, other tobacco product, uncomplicated; K21.9 Gastro-esophageal reflux disease without esophagitis; R09.02 Hypoxemia; Z66 Do not resuscitate; Z90.49 Acquired absence of other specified parts of digestive tract; Z79.82 Long term (current) use of aspirin; Z79.84 Long term (current) use of oral hypoglycemic drugs; Z79.899 Other long term (current) drug therapy; Z86.16 Personal history of COVID-19
CPT/HCPCS: 36415; 71275; 74176; 76000; 80048; 80053; 80076; 81001; 82962; 83735; 83880; 84100; 84443; 84484; 85025; 87631; 93005; 93306; 94640; 94668; 97116; 97162; 97165; 97535; 97802; 99252; 99284; 99406; J7030; Q9967; A4216; C1769; C2617; G0463; J1940; J2405

== ENCOUNTER 2023-10-20 06:08 | Day surgery (SDC) | payer MEDICARE, OTHER, SELFPAY ==
[2023-10-20] VITALS (9 sets, daily range): BP systolic 105–123; BP diastolic 54–91; PULSE 56–73; RESP 16–17; TEMP 36.2–36.6; O2SAT 93–97; BMI 28.6
[2023-10-20] MEDS: Lactated Ringers 1,000 ML 15 ML IV (07:08)
[2023-10-20] MEDS: Ketorolac 30 MG/ML Syringe 15 MG IM (07:31)
--- NOTE | 2023-10-20 07:33 | DCINST_ITS ---
Discharge Instructions Diet Discharge Diet: No restrictions Activity Discharge Activity: Return to Normal Activity and May Not Drive (while taking narcotic pain medications.) Dressing / Incision Call your doctor if you observe: Fever of 101 or Higher Follow Up Care Please Follow Up With: Adal Torres MD When: Call [phone] for an appointment Test Results: Test results from this visit will be discussed in further detail at your follow- up appointment, if applicable. Discharge Plan Admission Primary Reason for Your Visit: laser stone Attending Provider: Adal Torres Primary Care Provider: Taye Lyons Instructions Print Language: Kenyan Discharge Orders/Prescriptions Prescriptions: Continued aspirin 81 MG tablet,delayed release (DR/EC) 81 mg PO DAILY glimepiride 1 MG tablet 1 mg PO BID insulin aspart U-100 100 UNIT/ML solution 6 unit SQ TID ferrous sulfate 325 MG tablet 325 mg PO DAILY@0800 metformin 1,000 MG tablet 1,000 mg PO BID lovastatin 20 MG tablet 20 mg PO DAILY insulin glargine 100 UNIT/ML insulin pen 30 unit SQ QHS omeprazole 20 MG tablet,delayed release (DR/EC) 40 mg PO DAILY amlodipine 5 mg tablet 5 mg PO DAILY fenofibrate micronized 200 mg capsule 200 mg PO DAILY Referrals / Follow Up: Taye Lyons MD [Primary Care Provider] - Adal Torres MD [Med Staff - Active Staff] - Disposition Disposition (needs filled in before D/C Order can be placed): Home, Self Care
--- NOTE | 2023-10-20 07:33 | PCM.HP.STD ---
HPI - General General Date of Service: 10/20/23 Chief Complaint: Right ureteral calculi status post stent HPI Narrative JUAN M RODRIGUEZ, is a 87 M who presents for treatment of ureteral stone with laser lithotripsy and stent placement in the right side [facility] Medical History (Updated 10/17/23 @ 14:14 by Denice Stein) Wears glasses Cancer Smoker Insulin dependent diabetes mellitus Arthritis Prostate disease History of renal disease Diverticulosis First degree heart block COVID-19 Sepsis Hypomagnesemia History of colon polyps CKD (chronic kidney disease) Benign prostatic hyperplasia Anemia Acute pancreatitis Kidney stones Dyslipidemia Nausea Diarrhea GERD (gastroesophageal reflux disease) High cholesterol HTN (hypertension) Diabetes Home Medications ?Medication ?Instructions ?Recorded ?Last Taken ?Type aspirin 81 mg tablet,delayed 81 mg PO DAILY 05/17/20 10/10/23 History release ferrous sulfate 325 mg (65 mg 325 mg PO DAILY@0800 05/17/20 Unknown History iron) tablet glimepiride 1 mg tablet 1 mg PO BID 05/17/20 Unknown History insulin aspart U-100 100 unit/mL 6 unit SQ TID 05/17/20 Unknown History subcutaneous solution insulin glargine 100 unit/mL (3 30 unit SQ QHS 05/17/20 Unknown History mL) subcutaneous pen lovastatin 20 mg tablet 20 mg PO DAILY 05/17/20 Unknown History metformin 1,000 mg tablet 1,000 mg PO BID 05/17/20 Unknown History omeprazole 20 mg tablet,delayed 40 mg PO DAILY 05/17/20 Unknown History release amlodipine 5 mg tablet 5 mg PO DAILY 06/17/21 Unknown History fenofibrate micronized 200 mg 200 mg PO DAILY 10/17/23 Unknown History capsule Allergy/AdvReac Type Severity Reaction Status Date / Time lisinopril Allergy Angioedema Verified 10/20/23 06:49 Penicillins Allergy Rash Verified 10/20/23 06:49 hydromorphone (From Dilaudid) AdvReac Severe Other Verified 10/20/23 06:49 Family History Father Hypertension TIA (transient ischemic attack) Sister CAD (coronary artery disease) Diabetes COPD (chronic obstructive pulmonary disease) Lung cancer Surgical History (Updated 10/17/23 @ 14:14 by Denice Stein) History of transurethral resection of prostate History of urethral stent (~10/09/23) H/O inguinal hernia repair History of cholecystectomy Social History household members: spouse housing: house Smoking Status: Current every day smoker tobacco type: cigars alcohol intake: current alcohol intake frequency: 0-2 drinks per day substance use type: does not use Vital Signs Vital Signs Vital Signs: 10/20/23 07:09 10/20/23 07:09 Temperature 98 F Temperature Source Temporal Pulse Rate 69 Respiratory Rate 17 Respiratory Pattern Normal Blood Pressure 123/69 H Blood Pressure Mean 87 Blood Pressure Source Monitor Blood Pressure Position Semi-Fowlers Pulse Ox 93 Oxygen Delivery Method Room Air Weight Weight: 101.2 kg Body Mass Index (BMI) 28.6 Assessment & Plan Assessment/Plan (1) Ureterolithiasis: PLAN: Plan to laser the stone on the right side and placed a stent
--- NOTE | 2023-10-20 07:38 | PRE.ANES_ITS ---
ASA Classification* ASA Classification ASA Classification: 3 Assessment & Plan Anesthesia* Anesthesia Assessment Anesthesia Assessment: Discussed sedation and/or anesthesia options, risks, benefits, and alternatives with patient/parents/legal guardian/POA. Questions invited. The patient/parents/legal guardian/POA seems to understand and agrees to proceed with anesthesia plan. Reviewed the physical assessment, medical history, allergy history and patient home medications list prior to surgery/procedure/anesthetic and documented any changes. Performed airway and anesthesia risk assessments. Anesthesia Type Anesthesia Type: General Anesthesia Focused Assessment* Temperature: 98 F Pulse Rate: 69 Blood Pressure: 123/69 Respiratory Rate: 17 Pulse Ox: 93 Airway Assessment Mouth opens: >3 cm Mallampati Score: II Focused Labs Anesthesia Preop lab: CBC WBC 6.4 K/mm3 (4.4-11.0) 10/09/23 11:10 RBC 3.87 M/mm3 (4.6-6.2) L 10/09/23 11:10 Hgb 10.0 g/dL (13.0-16.5) L 10/09/23 11:10 Hct 32.1 % (40-54) L 10/09/23 11:10 Plt Count 322 K/mm3 (150-450) 10/09/23 11:10 CHEMISTRY Potassium 4.0 mmol/L (3.5-5.1) 10/09/23 11:10 Sodium 140 mmol/L (136-145) 10/09/23 11:10 Magnesium 1.9 mg/dL (1.6-2.6) 10/09/23 11:10 Phosphorus 4.3 mg/dL (2.5-4.9) 10/08/23 05:29 BUN 27 mg/dL (7-18) H 10/09/23 11:10 Creatinine 2.01 mg/dL (0.70-1.30) H 10/09/23 11:10 Glucose 108 mg/dL (74-106) H 10/09/23 11:10 POC Glucose 100 mg/dL (74-106) 10/09/23 17:37 TSH 2.43 uIU/mL (0.358-3.74) 10/08/23 05:29 COAG Pre-Assessment Diagnosis/Proposed Procedure Planned Operative Procedure(s): (R) Cysto,Ureteroscopy,Laser,Stent Anesthesia History Anesthesia History - program supervisor: Anesthesia History - program supervisor Hx Hospitalization Yes: 10/08 KIDNEY STONES 10/17/23 14:03 Any Problems With Anesthesia No 10/17/23 14:03 Cholinesterase deficiency No 10/17/23 14:03 You/Your Family Experience No 10/17/23 14:03 fever (hyperthermia) with Relationship Recent Exposure to Contagious No 10/20/23 07:09 Disease Does patient have nerve No 10/17/23 14:03 stimulator Patient instructed to have device shut off --Does patient have Pacemaker No 10/20/23 07:09 or ICD? When Was Last Pacemaker Check QUESTION #4 FULL TEXT: You/Your Family Experience fever (hyperthermia) with Anesthesia Last Oral Intake Last Oral intake: Last Oral Intake NPO since 00:00 10/20/23 07:09 Meds taken in AM with sips of No 10/20/23 07:09 water? Meds patient instructed to take am of surgery PONV PONV - program supervisor: PONV - program supervisor Female No 10/17/23 14:03 HX of Motion Sickness No 10/17/23 14:03 HX of N/V After Surgery No 10/17/23 14:03 Non-Smoker No 10/17/23 14:03 Duration of Surgery greater No 10/17/23 14:03 than 60 minutes Number of Risk Factors PONV Score Height & Weight Height & Weight: Anesthesia: Height & Weight Height 6 ft 2 in 10/20/23 07:09 Weight: 101.2 kg 10/20/23 07:09 Body Mass Index (BMI) 28.6 10/20/23 07:09 Respiratory Assessment Respiratory Assessment - program supervisor: Respiratory Tract Infection Hx - program supervisor Hx Respiratory Tract Infection No 10/17/23 14:03 STOP Sleep Apnea STOP Sleep Apnea - program supervisor: STOP Sleep Apnea - program supervisor Hx Hypertension Yes: CONTROLLED WITH MED 10/17/23 14:03 Hx Sleep Apnea No 10/17/23 14:03 CPAP BIPAP Do you snore loudly (louder No 10/17/23 14:03 than talking or can be heard Do you often feel tired/ No 10/17/23 14:03 fatigued/ sleepy during daytime? Has anyone observed you stop No 10/17/23 14:03 breathing during sleep? STOP Results Negative 10/17/23 14:03 QUESTION #5 FULL TEXT : Do you snore loudly (louder than talking or can be heard through closed doors)? Tobacco Use History Tobacco Use History - program supervisor: Tobacco Use History - program supervisor Tobacco Use Cigars 10/09/23 05:17 Smoking Status Current every day smoker 10/17/23 14:03 Hx Tobacco Use Yes 10/17/23 14:03 Years Smoking Packs Smoked per Day Smoking Cessation Date was within the last 15 years Hx Smoking Cessation Date Hx Smoking Cessation Counseling Hematologic Medial History Hematologic Hx - program supervisor: Hematologic Medical Hx - cover mat machine operator Hx of Blood Transfusion No 10/17/23 14:03 Hx of Transfusion in last 3 No 10/17/23 14:03 Months Date of Last Transfusion (if within last 3 months) Ever experience any problems No 10/17/23 14:03 with transfusion(s)? Specify any problems Hx of Preganancy in last 3 N/A 10/17/23 14:03 Months Nurse Filling Out Transfusion NBUCHER 10/17/23 14:03 & Questions: Date: 10/17/23 10/17/23 14:03 Time: 14:08 10/17/23 14:03 Patient unable to answer at this time (ie. confused, unrespo /Reproduction History /Reproductive History - program supervisor: /Reproductive Hx- program supervisor Hx Now Gestational Age (in weeks): EDC: Hx Hx Para Hx Section SAB No 10/17/23 14:03 Active Medications Active Medications: Current Medications Generic Name Dose Route Start Last Admin Trade Name Freq PRN Reason Stop Dose Admin Acetaminophen 650 mg 10/20/23 07:31 Acetaminophen 325 Mg Tablet PO Q4H PRN PRN Pain Score 1-5 Cefazolin Sodium 2 gm/ Sodium 110 mls @ 150 mls/hr 10/20/23 08:25 Chloride IV 10/20/23 09:08 PREOP ONE Lactated Ringer's 1,000 mls @ 15 mls/hr 10/20/23 06:30 10/20/23 07:08 IV 15 mls/hr .Q48H IRIS Administration Lactated Ringer's 1,000 mls @ 75 mls/hr 10/20/23 07:45 IV .[id number] IRIS Ondansetron HCl 4 mg 10/20/23 07:31 Ondansetron 4 Mg/2 Ml Vial IV X1 PRN NAUSEA PFSH Medical History Wears glasses Cancer Smoker Insulin dependent diabetes mellitus Arthritis Prostate disease History of renal disease Diverticulosis First degree heart block COVID-19 Sepsis Hypomagnesemia History of colon polyps CKD (chronic kidney disease) Benign prostatic hyperplasia Anemia Acute pancreatitis Kidney stones Dyslipidemia Nausea Diarrhea GERD (gastroesophageal reflux disease) High cholesterol HTN (hypertension) Diabetes Home Medications ?Medication ?Instructions ?Recorded ?Last Taken ?Type aspirin 81 mg tablet,delayed 81 mg PO DAILY 05/17/20 10/10/23 History release ferrous sulfate 325 mg (65 mg 325 mg PO DAILY@0800 05/17/20 Unknown History iron) tablet glimepiride 1 mg tablet 1 mg PO BID 05/17/20 Unknown History insulin aspart U-100 100 unit/mL 6 unit SQ TID 05/17/20 Unknown History subcutaneous solution insulin glargine 100 unit/mL (3 30 unit SQ QHS 05/17/20 Unknown History mL) subcutaneous pen lovastatin 20 mg tablet 20 mg PO DAILY 05/17/20 Unknown History metformin 1,000 mg tablet 1,000 mg PO BID 05/17/20 Unknown History omeprazole 20 mg tablet,delayed 40 mg PO DAILY 05/17/20 Unknown History release amlodipine 5 mg tablet 5 mg PO DAILY 06/17/21 Unknown History fenofibrate micronized 200 mg 200 mg PO DAILY 10/17/23 Unknown History capsule Allergy/AdvReac Type Severity Reaction Status Date / Time lisinopril Allergy Angioedema Verified 10/20/23 06:49 Penicillins Allergy Rash Verified 10/20/23 06:49 hydromorphone (From Dilaudid) AdvReac Severe Other Verified 10/20/23 06:49 Family History Father Hypertension TIA (transient ischemic attack) Sister CAD (coronary artery disease) Diabetes COPD (chronic obstructive pulmonary disease) Lung cancer Surgical History History of transurethral resection of prostate History of urethral stent (~10/09/23) H/O inguinal hernia repair History of cholecystectomy Social History household members: spouse housing: house Smoking Status: Current every day smoker tobacco type: cigars alcohol intake: current alcohol intake frequency: 0-2 drinks per day substance use type: does not use Review of Systems (Anesthesia) ROS Narrative System reviewed and no additional complaints, except as documented.
[2023-10-20] MEDS: Cefazolin 2 GM in 0.9% Normal Saline (100mL Bag) 100 ML IV (08:15)
--- NOTE | 2023-10-20 08:41 | PCM.OPRPT ---
Report of Operation Date of Procedure: 10/20/23 Pre-Operative Diagnosis: Right ureteral calculi causing obstruction and multiple right kidney stones Post-Operative Diagnosis: The same Surgery/Procedure Performed:: Cystoscopy right ureteroscopy laser lithotripsy of stones in the ureter and the kidney and right stent placement Description of Surgical Findings:: Patient was taken back to the operating room after smooth induction of anesthesia he was placed in dorsolithotomy position. Penis and testicles were prepped and draped in usual sterile fashion, went into the bladder with a 21 Azerbaijani rigid cystourethroscope and grabbed the existing stent pulled out the meatus put a wire up through the stent and then over the wire went in with a 7 Azerbaijani Olympus flexible ureteroscope as I went up to the ureter I encountered the large stone fragment in the mid ureter I then used a 365 ?m thulium laser fiber and I lasered the stone into little tiny pieces I then went up the ureter and went to the kidney and inspected the upper pole midpole lower pole the kidney and there were several fragments and all these fragments were also lasered as well, after successful lasering all the stones in the kidney that and then the major stone in the ureter then I worked my way down the ureter all the fragments passed into the bladder I then removed the cystoscope went back in with the scope cannulated the right ureter orifice with a Glidewire and advanced a stent on the right side of the string of the stent but cut it short to prevent early extraction and patient's anesthetic was reversed taken back to the PACU in good condition I will see him next week for cystoscopy stent removal Surgeon: Adal Torres Type of Anesthesia: General Drains: right stent Estimated Blood Loss (mL): 0 Admit VTE Documentation VTE Present on Admission: No VTE Mechan Device Prophylaxis: SCD's VTE Pharm Prophylaxis ordered?: No
--- NOTE | 2023-10-20 08:49 | PCM.POST.ANE ---
Anesthesia: Postop Eval I Current Vital Signs Temperature: 97.7 F Pulse Rate: 70 Blood Pressure: 119/91 Respiratory Rate: 16 Pulse Ox: 95 Oxygen Delivery Method: Room Air Assessment Airway patent: Yes Spontaneous unlabored respirations: Yes Mental status: Awake and Calm nausea: No Vomiting: No Anesthesia Complication: No Fluid Hydration Crystalloid volume administer (ml): 700 Total IV fluid infused: 700 Progress Note Anesthesia document: Postop Eval 1 completed: Yes
[2023-10-20 09:23] LABS: Bedside Glucose 94 mg/dL (74-106)
--- NOTE | 2023-10-20 09:48 | POSTOPAN2_ITS ---
Anesthesia Postop Eval I Sum Postop Eval Completion status Anesthesia document: Postop Eval 1 completed: Yes Anesthesia Postop Eval I Summary Anesthesia Postop Eval I Summary: Anesthesia Postop Eval I: Assessment Summary Airway patent Yes 10/20/23 08:49 HADOOP CONSULTANT.RAJENDRAOBMarcella Spontaneous unlabored Yes 10/20/23 08:49 HADOOP CONSULTANT.PRESLEY respirations Mental status Awake,Calm 10/20/23 08:49 HADOOP CONSULTANT.PRESLEY nausea No 10/20/23 08:49 HADOOP CONSULTANT.PRESLEY Vomiting No 10/20/23 08:49 HADOOP CONSULTANT.PRESLEY Anesthesia Postop Eval I: Fluid Summary Crystalloid volume administer 700 10/20/23 08:49 HADOOP CONSULTANT.PRESLEY (ml) Colloids volume administered ( ml) Blood Product volume administered (ml) Total IV fluid infused 700 10/20/23 08:49 HADOOP CONSULTANT.PRESLEY Anesthesia Postop Eval I: Summary Notes Anesthesia Complication No 10/20/23 08:49 HADOOP CONSULTANTLUMA Anesthesia Complication Comment: Post-operative progress note Anesthesia: Postop Eval II Evaluation Mental status: Awake Pain Level: 0 nausea: No Vomiting: No Complications Anesthesia Complication: No
--- NOTE | 2023-10-20 09:48 | PCM.POSTANE2 ---
Anesthesia Postop Eval I Sum Postop Eval Completion status Anesthesia document: Postop Eval 1 completed: Yes Anesthesia Postop Eval I Summary Anesthesia Postop Eval I Summary: Anesthesia Postop Eval I: Assessment Summary Airway patent Yes 10/20/23 08:49 SPECIAL INVESTIGATION UNIT INVESTIGATOR.RAJENDRAOBMarcella Spontaneous unlabored Yes 10/20/23 08:49 SPECIAL INVESTIGATION UNIT INVESTIGATOR.PRESLEY respirations Mental status Awake,Calm 10/20/23 08:49 SPECIAL INVESTIGATION UNIT INVESTIGATOR.PRESLEY nausea No 10/20/23 08:49 SPECIAL INVESTIGATION UNIT INVESTIGATOR.PRESLEY Vomiting No 10/20/23 08:49 SPECIAL INVESTIGATION UNIT INVESTIGATOR.PRESLEY Anesthesia Postop Eval I: Fluid Summary Crystalloid volume administer 700 10/20/23 08:49 SPECIAL INVESTIGATION UNIT INVESTIGATOR.PRESLEY (ml) Colloids volume administered ( ml) Blood Product volume administered (ml) Total IV fluid infused 700 10/20/23 08:49 SPECIAL INVESTIGATION UNIT INVESTIGATOR.PRESLEY Anesthesia Postop Eval I: Summary Notes Anesthesia Complication No 10/20/23 08:49 SPECIAL INVESTIGATION UNIT INVESTIGATORLUMA Anesthesia Complication Comment: Post-operative progress note Anesthesia: Postop Eval II Evaluation Mental status: Awake Pain Level: 0 nausea: No Vomiting: No Complications Anesthesia Complication: No
== END 2023-10-20 09:50 | disposition home or self-care (01) ==
LOC: SDC 06:09 → AC 06:10
PROVIDERS: PCP Family Medicine; Referring Provider Urology; Visit Provider Urology
PROC: 0TJ98ZZ Inspection of Ureter, Via Natural or Artificial Opening Endoscopic (ICD-10-PCS; CPT 52352; principal; 2023-10-20 08:15)
DX: N20.2 Calculus of kidney with calculus of ureter (principal); E11.22 Type 2 diabetes mellitus with diabetic chronic kidney disease; Z79.4 Long term (current) use of insulin; E78.00 Pure hypercholesterolemia, unspecified; F17.290 Nicotine dependence, other tobacco product, uncomplicated; I12.9 Hypertensive chronic kidney disease with stage 1 through stage 4 chronic kidney disease, or unspecified chronic kidney disease; N18.9 Chronic kidney disease, unspecified; Z79.82 Long term (current) use of aspirin; Z79.84 Long term (current) use of oral hypoglycemic drugs; Z79.899 Other long term (current) drug therapy; Z86.16 Personal history of COVID-19
CPT/HCPCS: 52356; 00873; 82962; J7120; C1769; C2617; J2405

== ENCOUNTER 2024-02-18 03:40 | Emergency (ER) | payer MEDICARE, OTHER, SELFPAY ==
[2024-02-18 03:54] VITALS: BP 148/67; PULSE 99; RESP 18; TEMP 36.6; O2SAT 95; BMI 29.2
[2024-02-18 03:57] VITALS: BP 148/67; PULSE 83; RESP 18; TEMP 36.6; O2SAT 95
--- NOTE | 2024-02-18 04:42 | EX.ED.VIS.UR ---
HPI HPI - URI History of Present Illness Chief Complaint: Cold Sx Informant: patient Narrative Narrative: 88-year-old male states he has been ill with a cough for an unknown period of time, a week or less he estimates, he states he has just been feeling poorly but no fevers, chills, dyspnea, chest pain, GI symptoms. Denied sore throat earache. No sinus pain or pressure or headaches. He states his has multiple myeloma and he has been worrying about mostly her and not himself since he has a persistent cough and is not feeling well he wants to make sure he does not have pneumonia. He had COVID about 3 weeks ago and recovered from that and does not think that is what he has here. He also had influenza and RSV vaccinations this year. ROS ROS ED Constitutional Constitutional ED: Reports fatigue; Denies body ache(s), chills or fever(s) Eyes Eyes: Denies change in vision or diplopia ENT ENT ED: Denies ear pain, rhinorrhea or sore throat Cardiovascular Cardiovascular: Denies chest pain or palpitations Respiratory/Chest Respiratory/Chest: Reports cough and other Details: Occasional/rare production of small amount of sputum, no blood ; Denies dyspnea Gastrointestinal Gastrointestinal: Denies abdominal pain, diarrhea, nausea or vomiting Genitourinary Genitourinary ED: Denies dysuria or hematuria Musculoskeletal Musculoskeletal: Denies back pain or neck pain Integumentary Denies abscess or rash Neurologic Neurologic: Denies headache(s), paresthesias or weakness Psychiatric Psychiatric: Denies anxiety or suicidal thoughts [facility] Medical History Wears glasses Cancer Smoker Insulin dependent diabetes mellitus Arthritis Prostate disease History of renal disease Diverticulosis First degree heart block COVID-19 Sepsis Hypomagnesemia History of colon polyps CKD (chronic kidney disease) Benign prostatic hyperplasia Anemia Acute pancreatitis Kidney stones Dyslipidemia Nausea Diarrhea GERD (gastroesophageal reflux disease) High cholesterol HTN (hypertension) Diabetes Home Medications ?Medication ?Instructions ?Recorded ?Last Taken ?Type aspirin 81 mg tablet,delayed 81 mg PO DAILY 05/17/20 10/10/23 History release ferrous sulfate 325 mg (65 mg 325 mg PO DAILY@0800 05/17/20 Unknown History iron) tablet glimepiride 1 mg tablet 1 mg PO BID 05/17/20 Unknown History insulin aspart U-100 100 unit/mL 6 unit SQ TID 05/17/20 Unknown History subcutaneous solution insulin glargine 100 unit/mL (3 30 unit SQ QHS 05/17/20 Unknown History mL) subcutaneous pen lovastatin 20 mg tablet 20 mg PO DAILY 05/17/20 Unknown History metformin 1,000 mg tablet 1,000 mg PO BID 05/17/20 Unknown History omeprazole 20 mg tablet,delayed 40 mg PO DAILY 05/17/20 Unknown History release amlodipine 5 mg tablet 5 mg PO DAILY 06/17/21 Unknown History fenofibrate micronized 200 mg 200 mg PO DAILY 10/17/23 Unknown History capsule ciprofloxacin HCl 500 mg tablet 500 mg PO BID #6 tabs 10/20/23 Unknown Rx (Cipro) albuterol sulfate 90 mcg/actuation 2 puff inhalation Q4-6H PRN 12/20/23 Unknown Rx aerosol inhaler shortness of breath or wheezing #8.5 grams dexamethasone 6 mg tablet 6 mg PO DAILY #5 tabs 12/20/23 Unknown Rx Allergy/AdvReac Type Severity Reaction Status Date / Time lisinopril Allergy Angioedema Verified 02/18/24 03:54 Penicillins Allergy Rash Verified 02/18/24 03:54 hydromorphone (From Dilaudid) AdvReac Severe Other Verified 02/18/24 03:54 Family History Father Hypertension TIA (transient ischemic attack) Sister CAD (coronary artery disease) Diabetes COPD (chronic obstructive pulmonary disease) Lung cancer Surgical History History of transurethral resection of prostate History of urethral stent (~10/09/23) H/O inguinal hernia repair History of cholecystectomy Social History household members: spouse housing: house Smoking Status: Current every day smoker tobacco type: cigars alcohol intake: current alcohol intake frequency: 0-2 drinks per day substance use type: does not use EXAM Physical Exam Const Vital Signs: 02/18/24 03:54 02/18/24 03:57 02/18/24 03:58 Temperature 97.9 F 97.9 F Temperature Source Oral Oral Pulse Rate 99 83 Respiratory Rate 18 18 Respiratory Effort Normal Respiratory Depth Respiratory Pattern Normal Blood Pressure 148/67 H 148/67 H Blood Pressure Mean 94 94 Pulse Ox 95 95 Oxygen Delivery Method Room Air Room Air 02/18/24 05:02 02/18/24 05:03 02/18/24 06:00 Temperature 98 F 98.0 F Temperature Source Oral Oral Pulse Rate 82 84 Respiratory Rate 18 18 Respiratory Effort Short of Breath Respiratory Depth Shallow Respiratory Pattern Normal Blood Pressure 164/74 H 160/70 H Blood Pressure Mean 104 100 Pulse Ox 97 94 Oxygen Delivery Method Room Air Room Air Room Air Positive well nourished and well developed General Appearance ED: well developed and NAD HEENT Reports moist mucous membranes normocephalic and atraumatic Eyes PERRL and EOMs intact bilaterally Neck full ROM and supple Resp normal respiratory effort and clear to auscultation bilaterally Cardio regular rate, regular rhythm and no murmurs GI non-tender and non-distended Auscultation: normoactive bowel sounds Palpation: soft Back/Spine no CVA tenderness General Back: other FROM Extremity normal to inspection General Extremety ED: Negative for edema, pulses abnormal or tenderness General Extremity: Negative for edema or pulses abnormal Neuro oriented x3, CN's II-XII intact bilaterally and no sensory deficits noted Sensorium / Orientation: awake and alert Motor Exam: strength 5/5 throughout Skin no rashes or lesions noted and no wounds MDM MDM MDM Narrative Medical decision making narrative: Two-view chest x-ray was obtained and is negative for pneumonia on my interpretation. Patient's vital signs are normal except for mildly elevated systolic blood pressure, and he is not hypoxic. We discussed getting a COVID/influenza/RSV swab, we both agree that it is probably not necessary or going to necessarily be helpful. I suspect this is probably a viral illness, I do not think antibiotics are going to help with this. I see no patchy evidence of mycoplasma which has been present in the community recently, so I think that is less likely as well. Supportive care advised to follow-up as needed we discussed reasons to return especially dyspnea high fevers. Of note, pt was discharged before radiology read his films due to delay in obtaining interpretation; 2 hrs after discharge, the result is still not available. Discharge Plan Triage Chief Complaint: Cold Sx ED Provider: Chava Cao Dx/Rx/DC Orders Clinical Impression: Viral URI with cough Instructions: ED URI, Viral, No Abx (Adult) Prescriptions: No Action dexamethasone 6 mg tablet 6 mg PO DAILY Qty: 5 0RF albuterol sulfate 90 mcg/actuation HFA aerosol inhaler 2 puff inhalation Q4-6H PRN (Reason: shortness of breath or wheezing) Qty: 8.5 0RF aspirin 81 MG tablet,delayed release (DR/EC) 81 mg PO DAILY glimepiride 1 MG tablet 1 mg PO BID insulin aspart U-100 100 UNIT/ML solution 6 unit SQ TID ferrous sulfate 325 MG tablet 325 mg PO DAILY@0800 metformin 1,000 MG tablet 1,000 mg PO BID lovastatin 20 MG tablet 20 mg PO DAILY insulin glargine 100 UNIT/ML insulin pen 30 unit SQ QHS omeprazole 20 MG tablet,delayed release (DR/EC) 40 mg PO DAILY amlodipine 5 mg tablet 5 mg PO DAILY fenofibrate micronized 200 mg capsule 200 mg PO DAILY ciprofloxacin HCl [Cipro] 500 mg tablet 500 mg PO BID Qty: 6 0RF Primary Care Provider: Taye Lyons Referrals: Taye Lyons MD [Primary Care Provider] - 1 Week if not improving Print Language: Tajik Disposition Disposition: Home, Self Care Discharge Date/Time: 02/18/24 06:34
--- NOTE | 2024-02-18 04:45 | RAD_ITS ---
INDICATION: cough EXAMINATION/TECHNIQUE: X-RAY - XR Chest 2 Views COMPARISON: 10/24/2022. FINDINGS: LINES/DEVICES: None. LUNGS: No consolidation or evidence of an effusion. No evidence of edema or a pneumothorax. MEDIASTINUM AND CARDIOVASCULAR STRUCTURES: Cardiac silhouette is normal in size and contour. Mediastinum is unremarkable. BONES AND SOFT TISSUES: No acute abnormality. RAD/Chest PA and Lateral IMPRESSION: No evidence of cardiopulmonary disease. Electronically Signed: Taye Randolph DO at 7:42 EST ,
[2024-02-18 05:02] VITALS: BP 164/74; PULSE 82; RESP 18; TEMP 36.6; O2SAT 97
[2024-02-18 05:03] VITALS: O2SAT 94
[2024-02-18 06:00] VITALS: BP 160/70; PULSE 84; RESP 18; TEMP 36.7; O2SAT 94
== END 2024-02-18 06:34 | disposition home or self-care (01) ==
PROVIDERS: Emergency Provider Emergency Medicine; PCP Family Medicine; Visit Provider Emergency Medicine
DX: J06.9 Acute upper respiratory infection, unspecified (principal); E11.22 Type 2 diabetes mellitus with diabetic chronic kidney disease; Z79.4 Long term (current) use of insulin; E78.00 Pure hypercholesterolemia, unspecified; N18.9 Chronic kidney disease, unspecified; I12.9 Hypertensive chronic kidney disease with stage 1 through stage 4 chronic kidney disease, or unspecified chronic kidney disease; F17.290 Nicotine dependence, other tobacco product, uncomplicated; Z79.51 Long term (current) use of inhaled steroids; Z79.82 Long term (current) use of aspirin; Z79.899 Other long term (current) drug therapy; Z79.84 Long term (current) use of oral hypoglycemic drugs; Z86.16 Personal history of COVID-19
CPT/HCPCS: 71046; 99283

== ENCOUNTER 2024-06-16 17:43 | Emergency (ER) | payer MEDICARE, OTHER, SELFPAY ==
[2024-06-16 17:44] VITALS: BP 147/60; PULSE 79; RESP 16; TEMP 35.8; O2SAT 98; BMI 28.8
--- NOTE | 2024-06-16 18:19 | CT_ITS ---
PROCEDURE: ABDOMEN/PELVIS WITHOUT CONT 06/16/2024 REASON FOR EXAM: LLQ PAIN, HX KIDNEY STONES TECHNIQUE: Abdomen and pelvis CT without intravenous contrast. Noncontrast technique limits evaluation of the abdominal and pelvic viscera. Contiguous axial scans of 2.5 mm slice thicknesses. Sagittal and coronal reconstruction images were obtained. One or more dose reduction techniques were used (e.g., automated exposure control, adjustment of mA and/or kv according to patient size, use of iterative reconstruction technique). ORAL CONTRAST TYPE: None. COMPARISON: CT abdomen and pelvis dated 10/07/2023. FINDINGS: Lung bases: Mild hypoventilatory changes and/or parenchymal scarring. Mild bronchiectatic changes in the lower lobes. Severe coronary artery calcifications. Elevation of the right hemidiaphragm. Liver: Unremarkable. Gallbladder: Surgically absent. Spleen: Unremarkable. Pancreas: Mild atrophy. Adrenals: No masses or abnormal thickening. Kidneys: Multiple subcentimeter nonobstructing calculi in the left kidney. Bilateral renal cysts, largest on the left measuring 1.1 cm and 1.9 cm on the right. Bladder: Unremarkable. Reproductive Organs: Cjvm-[id number] prostatomegaly. Bowel: Severe diverticulosis, more prevalent in the left hemicolon without signs of diverticulitis. Appendix: Unremarkable. Lymph nodes: No suspicious lymphadenopathy. Vasculature: Diffuse atherosclerotic calcific disease of the aorta and iliac arteries. Peritoneum / Retroperitoneum: No free air. No free fluid. Anterior abdominal wall: Unremarkable. Bones: Multilevel spondylosis. CT/Abdomen/Pelvis without Cont IMPRESSION: 1. Left nonobstructing nephrolithiasis. 2. Bilateral renal cysts. 3. Status post cholecystectomy. 4. Mild pancreatic atrophy. 5. Severe colon diverticulosis without signs of diverticulitis. 6. Mild bronchiectatic changes in the bilateral lower lobes. 7. Severe coronary artery calcifications. 8. Elevation of the right hemidiaphragm. 9. Other nonacute findings detailed above. Reading Location: [facility]
[2024-06-16 18:48] LABS: Absolute Lymphocyte Count 3.26 X10^3/uL (0.83-4.51); Basophil# 0.04 X10^3/uL; Basophil% 0.4 % (0-1); Eosinophil# 0.33 X10^3/uL; Eosinophils% 3.2 % (0-5); Hematocrit 36.2 % (40-54); Hemoglobin 11.5 g/dL (13.0-16.5); Lymphocyte # 3.26 X10^3/ul (0.83-4.51); Lymphocyte % 31.2 % (19-41); Mean Corp Hgb Conc 31.8 g/dL (32-36); Mean Corpuscular Volume 81.7 fL (80-94); Mean Platelet Vol. 10.5 fl (6.2-12.0); Monocyte# 0.78 X10^3/uL; Monocyte% 7.5 % (0-10); NRBC Flagged by Analyzer 0 % (0-5); Neutrophil # 5.97 X10^3/uL (2.7-7.7); Platelet Count 393 K/mm3 (150-450); RBC Distribution Width CV 16.4 % (11.6-14.6); RBC Distribution Width SD 48.7 fl (35.1-43.9); Red Blood Count 4.43 M/mm3 (4.6-6.2); White Blood Count 10.5 K/mm3 (4.4-11.0)
[2024-06-16 18:58] LABS: ALB/GLOB Ratio 1.2 RATIO (0.9-2.4); AST(SGOT) 28 U/L (<=37); Alanine Aminotransfer ALT/SGPT 17 U/L (<=46); Albumin, Serum 3.7 g/dL (3.4-4.8); Alkaline Phosphatase 40 U/L (40-129); Anion Gap 12 (5-15); BUN 20 mg/dL (4-19); BUN/Creat Ratio 12.3 RATIO (10-20); Calcium,Total 9.8 mg/dL (7.6-11.0); Carbon Dioxide 20.5 mmol/L (21.0-32.0); Chloride 107 mmol/L (98-108); Creatinine, Serum 1.62 mg/dL (0.70-1.20); EST Glomerular Filtration Rate 41 (>60); Estimated Creatinine Clearance 39.76 ml/min (50-250); Glucose 94 mg/dL (70-99); Lipase 24 U/L (13-75); Potassium 4.3 mmol/L (3.3-5.1); Protein, Total 6.7 g/dL (5.9-8.4); Sodium Level 139 mmol/L (133-145); Total Bilirubin 0.25 mg/dL (0.00-1.30)
[2024-06-16 19:45] VITALS: BP 140/85; PULSE 75; RESP 15; O2SAT 94
--- NOTE | 2024-06-16 20:16 | ED.RN ---
discussed straight cath with Dr. Correa, per Dr. Correa not at this time.
--- NOTE | 2024-06-16 20:21 | EX.ED.DYSGE1 ---
HPI <CORTNEY Cheatham - Last Filed: 06/16/24 22:09> History of Present Illness Chief Complaint: Abd Pain Narrative Narrative: Patient presents today due to pain into his left groin he has had intermittently over the past week. He reports that the pain has gradually worsened and this evening he developed nausea, prompting him to come in to be seen. He has a remote history of kidney stones and reports that this feels similar. He denies history of diverticulitis. Previous abdominal surgeries include cholecystectomy and hernia repair. He does follow with Dr. Torres. He last had a bowel movement about 2 hours prior to arrival, he denies any stool changes. He denies fevers, chills, and urinary symptoms. PMH includes T2DM, HLD, GERD, and HTN. PFSH <CORTNEY Cheatham - Last Filed: 06/16/24 22:09> PFS Medical History Wears glasses Cancer Smoker Insulin dependent diabetes mellitus Arthritis Prostate disease History of renal disease Diverticulosis First degree heart block COVID-19 Sepsis Hypomagnesemia History of colon polyps CKD (chronic kidney disease) Benign prostatic hyperplasia Anemia Acute pancreatitis Kidney stones Dyslipidemia Nausea Diarrhea GERD (gastroesophageal reflux disease) High cholesterol HTN (hypertension) Diabetes Home Medications ?Medication ?Instructions ?Recorded ?Last Taken ?Type aspirin 81 mg tablet,delayed 81 mg PO DAILY 05/17/20 10/10/23 History release ferrous sulfate 325 mg (65 mg 325 mg PO DAILY@0800 05/17/20 Unknown History iron) tablet glimepiride 1 mg tablet 1 mg PO BID 05/17/20 Unknown History insulin aspart U-100 100 unit/mL 6 unit SQ TID 05/17/20 Unknown History subcutaneous solution insulin glargine 100 unit/mL (3 30 unit SQ QHS 05/17/20 Unknown History mL) subcutaneous pen lovastatin 20 mg tablet 20 mg PO DAILY 05/17/20 Unknown History metformin 1,000 mg tablet 1,000 mg PO BID 05/17/20 Unknown History omeprazole 20 mg tablet,delayed 40 mg PO DAILY 05/17/20 Unknown History release amlodipine 5 mg tablet 5 mg PO DAILY 06/17/21 Unknown History fenofibrate micronized 200 mg 200 mg PO DAILY 10/17/23 Unknown History capsule ciprofloxacin HCl 500 mg tablet 500 mg PO BID #6 tabs 10/20/23 Unknown Rx (Cipro) albuterol sulfate 90 mcg/actuation 2 puff inhalation Q4-6H PRN 12/20/23 Unknown Rx aerosol inhaler shortness of breath or wheezing #8.5 grams dexamethasone 6 mg tablet 6 mg PO DAILY #5 tabs 12/20/23 Unknown Rx insulin aspart U-100 100 unit/mL subcut 06/16/24 Unknown History (3 mL) subcutaneous pen (Novolog FlexPen U-100 Insulin aspart) Allergy/AdvReac Type Severity Reaction Status Date / Time lisinopril Allergy Angioedema Verified 06/16/24 17:44 Penicillins Allergy Rash Verified 06/16/24 17:44 hydromorphone (From Dilaudid) AdvReac Severe Other Verified 06/16/24 17:44 Family History Father Hypertension TIA (transient ischemic attack) Sister CAD (coronary artery disease) Diabetes COPD (chronic obstructive pulmonary disease) Lung cancer Surgical History History of transurethral resection of prostate History of urethral stent (~10/09/23) H/O inguinal hernia repair History of cholecystectomy Social History household members: spouse housing: house Smoking Status: Current every day smoker tobacco type: cigars alcohol intake: current alcohol intake frequency: 0-2 drinks per day substance use type: does not use ROS <CORTNEY Cheatham - Last Filed: 06/16/24 22:09> ROS ED Constitutional Constitutional ED: Denies chills or fever(s) Cardiovascular Cardiovascular: Denies chest pain Respiratory/Chest Respiratory/Chest: Denies dyspnea Gastrointestinal Gastrointestinal: Reports abdominal pain; Denies constipation, diarrhea, melena, nausea, rectal bleeding or vomiting Genitourinary Genitourinary ED: Denies dysuria, hematuria or urinary urgency Musculoskeletal Musculoskeletal: Reports other Details: Chronic intermittent lower back pain that is not any worse today. Integumentary Denies rash Neurologic Neurologic: Denies weakness EXAM <CORTNEY Cheatham - Last Filed: 06/16/24 22:09> Physical Exam Const Vital Signs: 06/16/24 17:44 06/16/24 19:45 Temperature 96.4 F L Temperature Source Temporal Pulse Rate 79 75 Respiratory Rate 16 15 Blood Pressure 147/60 H 140/85 H Blood Pressure Mean 89 103 Pulse Ox 98 94 Oxygen Delivery Method Room Air Room Air Positive well nourished, well developed and no apparent distress General Appearance ED: well developed HEENT Reports normocephalic and head/scalp atraumatic Mouth ED: Yes moist mucous membranes normal Eyes PERRL and EOMs intact bilaterally Neck full ROM and supple Chest Wall inspection of chest normal Resp normal respiratory effort and clear to auscultation bilaterally Cardio regular rate and regular rhythm GI soft to palpation, non-tender, non-distended and no masses GI Narrative: Minimal tenderness to the left groin without obvious masses, no rigidity or guarding. Abdomen otherwise soft and nontender Back/Spine normal ROM and normal to inspection General Back: Negative for CVA tenderness Extremity normal to inspection and full ROM Neuro oriented x3, CN's II-XII intact bilaterally, moves all extremities, no focal motor deficits and no sensory deficits noted Sensorium / Orientation: awake and alert Psych mental status grossly normal and thought process normal Skin no rashes or lesions noted and no wounds <Dr. Jamie Correa DO - Last Filed: 06/16/24 23:20> Physical Exam Const Vital Signs: 06/16/24 17:44 06/16/24 19:45 Temperature 96.4 F L Temperature Source Temporal Pulse Rate 79 75 Respiratory Rate 16 15 Blood Pressure 147/60 H 140/85 H Blood Pressure Mean 89 103 Pulse Ox 98 94 Oxygen Delivery Method Room Air Room Air [facility] <CORTNEY Cheatham - Last Filed: 06/16/24 22:09> [facility] Narrative Medical decision making narrative: Patient presenting with pain to his left groin he has had over the past week intermittently. He has concerns for a kidney stone as he has had them in the past. He otherwise is nontoxic-appearing. Differential includes kidney stone, diverticulitis, bowel obstruction, mass, and hernia. Labs obtained, his CBC shows a mild chronic anemia. CMP shows a creatinine of 1.62, this is consistent with previous labs. Lipase unremarkable. CT scan of the abdomen pelvis obtained and shows left nonobstructing nephrolithiasis, bilateral renal cysts, diverticulosis with no diverticulitis. Patient did have to be straight cathed for a urine, this is currently pending. On reexamination he is doing well. UA is pending. Lab Data Attestation: I reviewed the patient's lab results. Labs: Laboratory Results - last 24 hr 06/16/24 06/16/24 18:30 21:30 WBC 10.5 RBC 4.43 L Hgb 11.5 L Hct 36.2 L MCV 81.7 MCH 26.0 L MCHC 31.8 L RDW Std Deviation 48.7 H RDW Coeff of Abdulaziz 16.4 H Plt Count 393 MPV 10.5 Immature Gran % (Auto) 0.700 Neut % (Auto) 57.0 Lymph % (Auto) 31.2 [place] % (Auto) 7.5 Eos % (Auto) 3.2 Baso % (Auto) 0.4 Absolute Neuts (auto) 6.0 Absolute Lymphs (auto) 3.26 Nucleated RBC % 0 Sodium 139 Potassium 4.3 Chloride 107 Carbon Dioxide 20.5 L Anion Gap 12 BUN 20 H Creatinine 1.62 H Estim Creat Clear Calc 39.76 L Est GFR (MDRD) Non-Af 41 L BUN/Creatinine Ratio 12.3 Glucose 94 Calcium 9.8 Total Bilirubin 0.25 AST 28 ALT 17 Alkaline Phosphatase 40 Total Protein 6.7 Albumin 3.7 Globulin 3.0 Albumin/Globulin Ratio 1.2 Lipase 24 Urine Color Yellow Urine Clarity Clear Urine pH 5.0 Ur Specific [place] 1.020 Urine Protein 15 H Urine Glucose (UA) Normal Urine Ketones Negative Urine Occult Blood 50 H Urine Nitrite Negative Urine Bilirubin Negative Urine Urobilinogen Normal Ur Leukocyte Esterase Negative Urine RBC 10-25 SEEN Urine WBC 0 SEEN Ur Squamous Epith Cells 0 SEEN Urine Bacteria 0 SEEN Urine Mucus 0 SEEN Radiography Diagnostic Testing: Clinical Impression(s) from Imaging Studies Abdomen/Pelvis CT 06/16/24 18:19 IMPRESSION: 1. Left nonobstructing nephrolithiasis. 2. Bilateral renal cysts. 3. Status post cholecystectomy. 4. Mild pancreatic atrophy. 5. Severe colon diverticulosis without signs of diverticulitis. 6. Mild bronchiectatic changes in the bilateral lower lobes. 7. Severe coronary artery calcifications. 8. Elevation of the right hemidiaphragm. 9. Other nonacute findings detailed above. Reading Location: [facility] <Dr. Jamie Correa, DO - Last Filed: 06/16/24 23:20> [facility] Narrative Medical decision making narrative: Patient presenting with pain to his left groin he has had over the past week intermittently. He has concerns for a kidney stone as he has had them in the past. He otherwise is nontoxic-appearing. Differential includes kidney stone, diverticulitis, bowel obstruction, mass, and hernia. Labs obtained, his CBC shows a mild chronic anemia. CMP shows a creatinine of 1.62, this is consistent with previous labs. Lipase unremarkable. CT scan of the abdomen pelvis obtained and shows left nonobstructing nephrolithiasis, bilateral renal cysts, diverticulosis with no diverticulitis. Patient did have to be straight cathed for a urine, this is currently pending. On reexamination he is doing well. UA is pending. Attending note: I have personally performed a face to face assessment of the patient and have reviewed the [facility] note. I personally made/approved the management plan and take responsibility for the patient management. I performed a substantive portion of the visit including all aspects of the following. My larsen findings include: On and off pain for last week left groin. History kidney stones a felt similar today increasing pain with nausea therefore got concerned. He is followed by urology Dr. torres. Denies fevers denies dysuria. Denies vomiting. Normal bowel movements. Renal stone protocol with his symptoms. Labs white count normal creatinine 1.[address] scan results diverticulosis without diverticulitis no obstructive uropathy. Urine needed to be cath no hematuria without infection. Reassured on findings. Use Tylenol as needed. Outpatient follow-up with his doctors. Lab Data Labs: Laboratory Results - last 24 hr 06/16/24 06/16/24 18:30 21:30 WBC 10.5 RBC 4.43 L Hgb 11.5 L Hct 36.2 L MCV 81.7 MCH 26.0 L MCHC 31.8 L RDW Std Deviation 48.7 H RDW Coeff of Abdulaziz 16.4 H Plt Count 393 MPV 10.5 Immature Gran % (Auto) 0.700 Neut % (Auto) 57.0 Lymph % (Auto) 31.2 [place] % (Auto) 7.5 Eos % (Auto) 3.2 Baso % (Auto) 0.4 Absolute Neuts (auto) 6.0 Absolute Lymphs (auto) 3.26 Nucleated RBC % 0 Sodium 139 Potassium 4.3 Chloride 107 Carbon Dioxide 20.5 L Anion Gap 12 BUN 20 H Creatinine 1.62 H Estim Creat Clear Calc 39.76 L Est GFR (MDRD) Non-Af 41 L BUN/Creatinine Ratio 12.3 Glucose 94 Calcium 9.8 Total Bilirubin 0.25 AST 28 ALT 17 Alkaline Phosphatase 40 Total Protein 6.7 Albumin 3.7 Globulin 3.0 Albumin/Globulin Ratio 1.2 Lipase 24 Urine Color Yellow Urine Clarity Clear Urine pH 5.0 Ur Specific [place] 1.020 Urine Protein 15 H Urine Glucose (UA) Normal Urine Ketones Negative Urine Occult Blood 50 H Urine Nitrite Negative Urine Bilirubin Negative Urine Urobilinogen Normal Ur Leukocyte Esterase Negative Urine RBC 10-25 SEEN Urine WBC 0 SEEN Ur Squamous Epith Cells 0 SEEN Urine Bacteria 0 SEEN Urine Mucus 0 SEEN Radiography Diagnostic Testing: Clinical Impression(s) from Imaging Studies Abdomen/Pelvis CT 06/16/24 18:19 IMPRESSION: 1. Left nonobstructing nephrolithiasis. 2. Bilateral renal cysts. 3. Status post cholecystectomy. 4. Mild pancreatic atrophy. 5. Severe colon diverticulosis without signs of diverticulitis. 6. Mild bronchiectatic changes in the bilateral lower lobes. 7. Severe coronary artery calcifications. 8. Elevation of the right hemidiaphragm. 9. Other nonacute findings detailed above. Reading Location: [facility] Discharge Plan Triage Chief Complaint: Abd Pain ED Midlevel Provider: Lin Garcia ED Provider: Jamie Correa Dx/Rx/DC Orders Clinical Impression: Abdominal pain, Diverticulosis, CKD (chronic kidney disease) Instructions: Abdominal Pain Prescriptions: No Action dexamethasone 6 mg tablet 6 mg PO DAILY Qty: 5 0RF albuterol sulfate 90 mcg/actuation HFA aerosol inhaler 2 puff inhalation Q4-6H PRN (Reason: shortness of breath or wheezing) Qty: 8.5 0RF aspirin 81 MG tablet,delayed release (DR/EC) 81 mg PO DAILY glimepiride 1 MG tablet 1 mg PO BID insulin aspart U-100 100 UNIT/ML solution 6 unit SQ TID ferrous sulfate 325 MG tablet 325 mg PO DAILY@0800 metformin 1,000 MG tablet 1,000 mg PO BID lovastatin 20 MG tablet 20 mg PO DAILY insulin glargine 100 UNIT/ML insulin pen 30 unit SQ QHS omeprazole 20 MG tablet,delayed release (DR/EC) 40 mg PO DAILY amlodipine 5 mg tablet 5 mg PO DAILY fenofibrate micronized 200 mg capsule 200 mg PO DAILY ciprofloxacin HCl [Cipro] 500 mg tablet 500 mg PO BID Qty: 6 0RF insulin aspart U-100 [Novolog FlexPen U-100 Insulin] 100 unit/mL (3 mL) insulin pen subcut Primary Care Provider: Taye Lyons Referrals: Taye Lyons MD [Primary Care Provider] - 5-7 Days Adal Torres MD [Med Staff - Active Staff] - 1 Week (Hematuria) Activity Restrictions/Additional Instructions: Follow-up with your PCP and return for any worsening symptoms. You can also follow-up with urology given there was blood seen in your urine Print Language: Albanian Disposition Disposition: Home, Self Care Discharge Date/Time: 06/16/24 22:23
[2024-06-16] MEDS: Lidocaine Jelly 2% 20 ML Syringe (URO-JET) 1 APPLIC TOPICAL (21:15)
[2024-06-16 21:45] LABS: Bacteria 0 SEEN /hpf (None Seen); Mucous, Urine 0 SEEN /hpf (<or=2+); Squamous Epithelial Cells - UA 0 SEEN /hpf (0-5); White Blood Cells 0 SEEN /hpf (0-5)
[2024-06-16 21:51] LABS: Color, Urine Yellow (Yellow); Glucose, Dipstick Normal (Normal); Ketone-Dipstick Negative (Negative); Leukocyte Esterase-Dipstick Negative /ul (Negative); Nitrite-Dipstick Negative (Negative); Occult Blood-Urine 50 /ul (Negative); Protein-Dipstick 15 mg/dl (Negative); Urine Bilirubin Dipstick Negative (Negative); Urine Clarity Clear (Clear); Urine Urobilinogen Normal (Normal)
[2024-06-16 22:10] LABS: Red Blood Cells-Urine 10-25 SEEN /hpf (0-5)
== END 2024-06-16 22:23 | disposition home or self-care (01) ==
PROVIDERS: Physician Assistant; Emergency Provider Emergency Medicine; PCP Family Medicine; Visit Provider Emergency Medicine
DX: K57.30 Diverticulosis of large intestine without perforation or abscess without bleeding (principal); E11.22 Type 2 diabetes mellitus with diabetic chronic kidney disease; Z79.4 Long term (current) use of insulin; N18.9 Chronic kidney disease, unspecified; E78.00 Pure hypercholesterolemia, unspecified; I12.9 Hypertensive chronic kidney disease with stage 1 through stage 4 chronic kidney disease, or unspecified chronic kidney disease; Z79.51 Long term (current) use of inhaled steroids; Z79.899 Other long term (current) drug therapy; Z79.84 Long term (current) use of oral hypoglycemic drugs; Z86.16 Personal history of COVID-19
CPT/HCPCS: 74176; 80053; 81001; 83690; 85025; 99284; P9612; A4216

== ENCOUNTER 2024-10-31 22:35 | Emergency (ER) | payer MEDICARE, OTHER, SELFPAY ==
[2024-10-31 22:37] VITALS: BP 150/64; PULSE 82; RESP 16; TEMP 36.2; O2SAT 95; BMI 28.9
[2024-10-31 23:09] LABS: Hematocrit 34.7 % (40-54); Hemoglobin 11.2 g/dL (13.0-16.5); Immature Granulocytes Count 0.090 X10^3/uL (0.0-0.0); Mean Corp Hgb Conc 32.3 g/dL (32-36); Mean Corpuscular Volume 82.0 fL (80-94); Mean Platelet Vol. 10.5 fl (6.2-12.0); NRBC Flagged by Analyzer 0 % (0-5); Platelet Count 421 K/mm3 (150-450); RBC Distribution Width CV 16.7 % (11.6-14.6); RBC Distribution Width SD 49.8 fl (35.1-43.9); Red Blood Count 4.23 M/mm3 (4.6-6.2); White Blood Count 12.3 K/mm3 (4.4-11.0)
--- NOTE | 2024-10-31 23:24 | EX.ED.DYSGE1 ---
HPI History of Present Illness Chief Complaint: Hypoglycemia Informant: patient and spouse/S.O. Narrative Narrative: Patient is a 88-year-old male with past medical history of hypertension hyperlipidemia and insulin-dependent diabetes. He states he takes both short acting and long-acting insulin. He reports that he awoke this morning feeling just overall unwell. He states that he did not eat much throughout the day. He kept checking his sugars he reports roughly every 4 hours and he states they continue to downtrend. Despite this he did decide to take both short acting and long-acting insulin around 8 PM. He states that time he checked his sugars once again because he was feeling unwell and it was down to reportedly 47. Secondary to this he comes to the hospital for evaluation. He states that he has been on antibiotics which he just finished today from a previous procedure to his right ear. Otherwise he states has been no fevers chills nausea vomiting diarrhea dysuria or coughing/shortness of breath. [facility] Medical History Wears glasses Cancer Smoker Insulin dependent diabetes mellitus Arthritis Prostate disease History of renal disease Diverticulosis First degree heart block COVID-19 Sepsis Hypomagnesemia History of colon polyps CKD (chronic kidney disease) Benign prostatic hyperplasia Anemia Acute pancreatitis Kidney stones Dyslipidemia Nausea Diarrhea GERD (gastroesophageal reflux disease) High cholesterol HTN (hypertension) Diabetes Home Medications ?Medication ?Instructions ?Recorded ?Last Taken ?Type aspirin 81 mg tablet,delayed 81 mg PO DAILY 05/17/20 10/10/23 History release ferrous sulfate 325 mg (65 mg 325 mg PO DAILY@0800 05/17/20 Unknown History iron) tablet glimepiride 1 mg tablet 1 mg PO BID 05/17/20 Unknown History insulin aspart U-100 100 unit/mL 6 unit SQ TID 05/17/20 Unknown History subcutaneous solution insulin glargine 100 unit/mL (3 30 unit SQ QHS 05/17/20 Unknown History mL) subcutaneous pen lovastatin 20 mg tablet 20 mg PO DAILY 05/17/20 Unknown History metformin 1,000 mg tablet 1,000 mg PO BID 05/17/20 Unknown History omeprazole 20 mg tablet,delayed 40 mg PO DAILY 05/17/20 Unknown History release amlodipine 5 mg tablet 5 mg PO DAILY 06/17/21 Unknown History fenofibrate micronized 200 mg 200 mg PO DAILY 10/17/23 Unknown History capsule albuterol sulfate 90 mcg/actuation 2 puff inhalation Q4-6H PRN 12/20/23 Unknown Rx aerosol inhaler shortness of breath or wheezing #8.5 grams insulin aspart U-100 100 unit/mL subcut 06/16/24 Unknown History (3 mL) subcutaneous pen (Novolog FlexPen U-100 Insulin aspart) Allergy/AdvReac Type Severity Reaction Status Date / Time lisinopril Allergy Angioedema Verified 10/31/24 22:37 Penicillins Allergy Rash Verified 10/31/24 22:37 hydromorphone (From Dilaudid) AdvReac Severe Other Verified 10/31/24 22:37 Family History Father Hypertension TIA (transient ischemic attack) Sister CAD (coronary artery disease) Diabetes COPD (chronic obstructive pulmonary disease) Lung cancer Surgical History History of transurethral resection of prostate History of urethral stent (~10/09/23) H/O inguinal hernia repair History of cholecystectomy Social History household members: spouse housing: house Smoking Status: Current every day smoker tobacco type: cigars alcohol intake: current alcohol intake frequency: 0-2 drinks per day substance use type: does not use ROS ROS ED Constitutional Constitutional ED: Reports other Details: Positive generalized fatigue ; Denies chills or fever(s) Eyes Eyes: Denies change in vision ENT ENT ED: Denies sore throat Cardiovascular Cardiovascular: Denies chest pain Respiratory/Chest Respiratory/Chest: Denies cough or dyspnea Gastrointestinal Gastrointestinal: Denies abdominal pain, diarrhea, nausea or vomiting Genitourinary Genitourinary ED: Denies dysuria Musculoskeletal Musculoskeletal: Denies myalgias Integumentary Denies rash Neurologic Neurologic: Reports weakness; Denies headache(s) Hematologic/Lymphatic Hematologic/Lymphatic: Denies easy bleeding or easy bruising EXAM Physical Exam Const Vital Signs: 10/31/24 22:37 10/31/24 23:37 Temperature 97.2 F L Temperature Source Oral Pulse Rate 82 96 Respiratory Rate 16 16 Blood Pressure 150/64 H 136/54 H Blood Pressure Mean 92 81 Pulse Ox 95 99 Oxygen Delivery Method Room Air Positive well nourished and well developed General Appearance ED: well developed HEENT Reports moist mucous membranes HEENT Narrative: No tongue or lip swelling no oral lesions no airway edema or compromise; no secondary findings in the posterior pharynx to suggest infection Head is normocephalic and atraumatic Eyes PERRL and EOMs intact bilaterally General Eye ED: Negative for scleral icterus Neck supple Neck Narrative: No nuchal rigidity or meningeal signs Resp normal respiratory effort and clear to auscultation bilaterally Resp Narrative: Breath sounds are slight diminished throughout but overall clear to auscultation without nasal flaring retractions tachypnea or accessory muscle use Cardio regular rate and regular rhythm GI normal to inspection, nondistended, normoactive bowel sounds, non-tender, non-distended and no masses GI Narrative: No voluntary guarding or rigidity or pulsatile mass Auscultation: normoactive bowel sounds Palpation: soft Extremity normal to inspection Neuro oriented x3, CN's II-XII intact bilaterally and no sensory deficits noted Sensorium / Orientation: alert Motor Exam: strength 5/5 throughout Psych mental status grossly normal Skin Skin Narrative: Patient has a healing lesion on the posterior aspect of his right ear consistent with recent surgical procedure. No surrounding signs of infection Otherwise skin turgor is slightly increased MDM MDM MDM Narrative Medical decision making narrative: Patient arrived to the ER slightly hypertensive but otherwise with stable vitals. He reported his sugars have been low throughout the day but despite this he still took his short acting and nighttime insulin around 8 PM. In order to assess for potential cause of his low blood sugar such as an atypical reaction to an infectious source I elected to obtain basic laboratory studies as well as a chest x-ray. However as he has just finished antibiotics secondary to his recent ear procedure I have low concern for infection. Labs show leukocytosis of 12.3 and it did confirm his blood sugar is low at approximately 60 but otherwise no clinically significant finding. He was given D10 as well as food to eat. With this his blood sugar improved to 121. He was then watched in the ER for another hour. The sugar went from 121-112 which is not a clinically significant drop. He has remained awake alert and oriented with stable vitals. Therefore there is no further need for evaluation and is otherwise safe for discharge Of note the radiologist did mention his chest x-ray was atelectasis versus potentially developing infection. He is not coughing he is not hypoxic he is not febrile and he recently finished antibiotics and therefore I have low concern that this is a true infection and will not place him back on antibiotics at this time. History & Record Review Discussion w/independent historian: Patient and Significant other Lab Data Attestation: I reviewed the patient's lab results. Labs: Laboratory Results - last 24 hr 10/31/24 10/31/24 11/01/24 22:40 22:48 00:04 WBC 12.3 H RBC 4.23 L Hgb 11.2 L Hct 34.7 L MCV 82.0 MCH 26.5 L MCHC 32.3 RDW Std Deviation 49.8 H RDW Coeff of Abdulaziz 16.7 H Plt Count 421 MPV 10.5 Immature Gran % (Auto) 0.700 Neut % (Auto) 62.9 Lymph % (Auto) 29.3 Coleman % (Auto) 6.1 Eos % (Auto) 0.7 Baso % (Auto) 0.3 Absolute Neuts (auto) 7.7 Absolute Lymphs (auto) 3.59 Nucleated RBC % 0 Sodium 142 Potassium 3.8 Chloride 106 Carbon Dioxide 21.4 Anion Gap 14 BUN 16 Creatinine 1.55 H Estim Creat Clear Calc 41.65 L Est GFR (MDRD) Non-Af 43 L BUN/Creatinine Ratio 10.4 Glucose 57 L Calcium 9.1 Total Bilirubin 0.26 Direct Bilirubin 0.14 AST 33 ALT 20 Alkaline Phosphatase 37 L Total Protein 6.7 Albumin 3.7 Globulin 3.0 Lipase 17 POC Glucose 60 L 121 H Radiography Diagnostic Testing: Clinical Impression(s) from Imaging Studies Chest X-Ray 10/31/24 23:30 IMPRESSION: Shallow inspiration with associated bibasilar subsegmental atelectasis. Possible airspace opacity in the medial left lung base may represent consolidation such as pneumonia. Reading Location: [facility] Chest x-ray as interpreted by the emergency medicine physician reveals shallow inspiration with bibasilar atelectasis without acute infiltrate or pneumothorax Discharge Plan Triage Chief Complaint: Hypoglycemia ED Provider: Jarrett Holloway Dx/Rx/DC Orders Clinical Impression: Insulin dependent diabetes mellitus, Hypoglycemia, Hyperlipidemia, Hypertension Instructions: Hypoglycemia (Low Blood Sugar) Prescriptions: No Action albuterol sulfate 90 mcg/actuation HFA aerosol inhaler 2 puff inhalation Q4-6H PRN (Reason: shortness of breath or wheezing) Qty: 8.5 0RF aspirin 81 MG tablet,delayed release (DR/EC) 81 mg PO DAILY glimepiride 1 MG tablet 1 mg PO BID insulin aspart U-100 100 UNIT/ML solution 6 unit SQ TID ferrous sulfate 325 MG tablet 325 mg PO DAILY@0800 metformin 1,000 MG tablet 1,000 mg PO BID lovastatin 20 MG tablet 20 mg PO DAILY insulin glargine 100 UNIT/ML insulin pen 30 unit SQ QHS omeprazole 20 MG tablet,delayed release (DR/EC) 40 mg PO DAILY amlodipine 5 mg tablet 5 mg PO DAILY fenofibrate micronized 200 mg capsule 200 mg PO DAILY insulin aspart U-100 [Novolog FlexPen U-100 Insulin] 100 unit/mL (3 mL) insulin pen subcut Primary Care Provider: Taye Lyons Referrals: Taye Lyons MD [Primary Care Provider] - Activity Restrictions/Additional Instructions: Please talk to your family doctor about potentially changing/reducing the dosage of your nighttime insulin as well as your short acting/meal insulin. Your workup today revealed no clinically significant findings and your blood sugar did not drop precipitously after receiving medication in the ER. Otherwise continue your home medication as directed by your doctor and return for repeat evaluation if you have any further concerns. Print Language: Nepali Disposition Disposition: Home, Self Care
[2024-10-31 23:30] LABS: AST(SGOT) 33 U/L (<=37); Alanine Aminotransfer ALT/SGPT 20 U/L (<=46); Albumin, Serum 3.7 g/dL (3.4-4.8); Alkaline Phosphatase 37 U/L (40-129); Anion Gap 14 (5-15); BUN 16 mg/dL (4-19); BUN/Creat Ratio 10.4 RATIO (10-20); Bilirubin, Direct 0.14 mg/dL (0.00-0.30); Calcium,Total 9.1 mg/dL (7.6-11.0); Carbon Dioxide 21.4 mmol/L (21.0-32.0); Chloride 106 mmol/L (98-108); Estimated Creatinine Clearance 41.65 ml/min (50-250); Globulin 3.0 g/dL (2.2-4.2); Glucose 57 mg/dL (70-99); Lipase 17 U/L (13-75); Potassium 3.8 mmol/L (3.3-5.1)
--- NOTE | 2024-10-31 23:30 | RAD_ITS ---
PROCEDURE: CHEST 1 VIEW (PORTABLE) 10/31/2024 REASON FOR EXAM: COUGH TECHNIQUE: Frontal view of the chest. COMPARISON: 02/18/2024 FINDINGS: Lungs/Pleura: Suboptimal inspiration with associated mild bibasilar streaky subsegmental atelectasis. Possible airspace consolidation in the medial left lung base which may represent pneumonia. No pneumothorax or sizable pleural effusions. Heart/Mediastinum: Prominent in size but likely exaggerated by technique. Bones/Soft tissues: Mild degenerative changes of the spine. RAD/Chest 1 View (Portable) IMPRESSION: Shallow inspiration with associated bibasilar subsegmental atelectasis. Possib le airspace opacity in the medial left lung base may represent consolidation such as pneumonia. Reading Location: [id number]
[2024-10-31 23:37] VITALS: BP 136/54; PULSE 96; RESP 16; O2SAT 99
--- OUTSIDE RECORDS SUMMARY | 2024-11-01 00:23 | XMS RPT_ITS | CCD ---
Author Organization [facility] Care Team Providers Care Hole Puncher Strap Name Role Phone IERACI, OMID Referring Unavailable IERACI, OMID Primary Care Unavailable IERACI, OMID Referring Unavailable IERACI, OMID Primary Care Unavailable IERACI, OMID Referring Unavailable IERACI, OMID Primary Care Unavailable IERACI, OMID Referring Unavailable IERACI, OMID Primary Care Unavailable Taye Horan MD Primary Care Provider Kourtney Jerry RN Unavailable [phone] Taye Horan MD Primary Care Provider Unava ilable MEIR SETHI Admitting Unavailable MEIR SETHI Attending Unavailable TAYE HORAN Primary Care Unavailable Radha Pandya RN Unavailable Unavailable Taye Horan MD Primary Care Provider Radha Pandya RN Unavailable Unavailable Taye Horan MD Primary Care Provider Marcelina Garcia RN Unavailable Unavailable Taye Horan MD Primary Care Provider Marcelina Garcia RN Unavailable Unavailable Marcelina Garcia RN Unavailable Unavailable Taye Horan MD Primary Care Provider Taye Horan MD Primary Care Provider Bobbi Barrera RN Unavailable [phone] Tayla SALVAGE GRINDERЮЛИЯ, Melissa Unavailable Judi Rice PA-C Unavailable Dr. Taye Horan MD Primary Care Provider Nash CABELLO, Dr. Larsen Attending Provider Dr. Chava Cao MD Emergency Provider Dr. Jamie Correa DO Emergency Provider David Carrizales Attending Unavailable Aung, Taye Primary Care Unavailable Tersamuel, Wolfgang Attending Unavailable Hi, Leyla Consulting Unavailable Hi, Leyla Admitting Unavailable Aung, Taye Primary Care Unavailable Melissa, Roger Consulting Unavailable Tereletsky, Wolfgang Consulting Unavailable Hi, Leyla Attending Unavailable Aung, Taye Referring Unavailable Aung, Taye Primary Care Unavailable Ki Molina Attending Unavailable Melissa, Adal Jara Attending Unavailable Melissa, Roger Referring Unavailable Aung, Taye Primary Care Unavailable Aung, Taye Primary Care Unavailable Chava Cao Attending Unavailable Augn, Taye Primary Care Unavailable Jamie Correa Attending Unavailable Aung, Taye Primary Care Unavailable Amelia, Wolfgang Attending Unavailable Hi, Leyla Admitting Unavailable Hi, Leyla Consulting Unavailable Melissa, Roger Consulting Unavailable Tayla SALVAGE GRINDER.HOTEL ROOM ATTENDANT, Melissa Unavailable Judi Rice PA-C Unavailable [phone] TAYE HORAN A Primary Care Unavailable JUDI RICE Referring Unavailable AUNG, TAYE A Primary Care Unavailable JUDI RICE Attending Unavailable AUNG, TAYE A Primary Care Unavailable AUNG, TAYE A Referring Unavailable AUNG, TAYE A Primary Care Unavailable JUDI RICE Attending Unavailable AUNG TAYE A Primary Care Unavailable JUDI RICE Referring Unavailable Allergies Allergy Classification Reported Allergen(s) Allergy Type Date of Onset Reaction(s) Facility Angiotensin Converting Enzyme (MARELY) Inhibitors (1 source) Lisinopril Drug Allergy 5 Other: See Comments [facility] Magnesium Oxide (1 source) Magnesium Oxide Drug Allergy 2 Other: See Comments [facility] Opioid Agonists (1 source) HYDROmorphone Drug Allergy 9 Mental Status Change [facility] Work Phone: Penicillins (antibiotic) (1 source) Penicillins Drug Allergy 3 Unknown [facility] (4 sources) HYDROmorphone Drug Allergy 2 NEEDS FOLLOW-UP, Other [facility] Comment on above: MADE PATIENT AGGRESI VE (20 sources) Lisinopril; Translations: [LISINOPRIL] Drug Allergy 5 Other: See Comments, Other (See Comments) [facility] Work Phone: (20 sources) Penicillins; Translations: [Penicillins] Allergy to substance 3 Unknown, Rash [facility] Work Phone: (20 sources) HYDROmorphone; Translations: [HYDROMORPHONE (BULK)] Drug Allergy 9 Mental Status Change [facility] Work Phone: (1 source) Angiotensin Converting Enzyme (Marely) Inhibitors Propensity to adverse reactions to drug 3 Other (See Comments) Omniture (1 source) HYDROmorphone Drug Allergy 7 Omniture (20 sources) Magnesium Oxide; Translations: [MAGNESIUM OXIDE] Drug Allergy 2 Other: See Comments [facility] Work Phone: (1 source) HYDROmorphone Drug Allergy [address] [facility] Repository (1 source) Lisinopril Drug Allergy [address] [facility] Repository Medications Current Medications Medication Drug Class(es) Dates Sig (Normalized) Sig (Original) [id number] 200 actuat albuterol 0.09 mg/actuat metered dose inhaler (16 sources) beta2-Adrenergic Agonist Start: 01-30-2024 take 2 puff(s) by inhalation every four hours as needed for wheezing albuterol HFA (VENTOLIN HFA) 90 mcg/actuation inhaler Inhale 2 Puffs as instructed every 4 hours as needed for wheezing/shortnes s of breath. 1 Each 3 01/30/2024 Active Start: 12-20-2023 Albuterol Sulf ate 90 mcg/actuation HFA aerosol inhaler Active 2 NMA INHALATION EVERY 4-6 HOURS as needed for shortness of breath or wheezing 8.5 December 20, 2023 12:00am amLODIPine 5 mg oral tablet (20 sources) Dihydropyridine Calcium Channel Liset Start: 05-31-2018 End: 07-16-2024 take 1 tablet by mouth once daily, then take 1 tablet by mouth once daily amLODIPine (NORVASC) 5 mg tablet Take 1 tablet by mouth once daily. one tab daily 90 tablet 1 07/16/2024 Active Comment on above: Take 1 tablet by jeffrey once daily. one tab daily ascorbic acid 60 mg / beta carotene 5000 unt / copper sulfate 40 mg / dl-alpha tocopheryl acetate 30 unt / sodium selenite 0.04 mg / zinc oxide 40 mg oral tablet (1 source) Vitamin C Multiple Vitamins-Mineral s (MULTIVITAMIN ADULT) TABS Take by mouth 0 Active aspirin 81 mg delayed release oral tablet (20 sources) Platelet Aggregation Inhibitor, Nonsteroidal Anti-inflammatory Drug Start: 09-13-2012 take 1 tablet by mouth once daily aspirin 81 MG tablet Take 1 tablet by mouth daily. 30 tablet 0 09/13/2012 Active Start: 11-24-2010 take 1 tablet by jeffrey once daily aspirin, enteric coated (ASPIRIN, ENTERIC COATED) 81 mg EC tablet Take 1 tablet by mouth once daily. 0 11/24/2010 Active Comment on above: Take 1 tablet by jeffrey once daily. Blood Glucose Monitoring Suppl (FADUMO CONTOUR MONITOR) w/Device KIT (1 source) Start: 09-19-2016 Blood Glucose Monitoring Suppl (FADUMO CONTOUR MONITOR) w/Device KIT 1 kit by Does not apply route daily 1 kit 0 09/19/2016 Active Blood-Glucose Meter monitoring kit (1 source) Start: 09-16-2024 End: 09-17-2024 Blood-Glucose Meter monitoring kit Indications: Type 2 diabetes mellitus with stage 3b chronic kidney disease, with long-term current use of insulin ([facility]) Glucose Meter of Choice - Kit - Dx: Type 2 DM - Controlled E11.9 Insulin Yes give meter that is covered by insurance 1 each 09/16/2024 09/17/2024 Active cholecalciferol 0.05 mg oral capsule (20 sources) Vitamin D Cholecalciferol, Vitamin D3, 50 mcg (2,000 unit) cap Take 1 capsule by mouth. Active take 1 capsule by mouth once mercedes ly Cholecalciferol (VITAMIN D3) 2000 UNITS CAPS Take 1 capsule by mouth daily 0 Active Comment on above: Take 1 capsule by mo [facility]. ciprofloxacin 500 mg oral tablet (5 sources) Quinolone Antimicrobial Start: 10-20-19 24 take 1 tablet by mouth twice daily Ciprofloxacin Hcl (Cipro) 500 mg tablet Active 500 mg PO TWICE A DAY October 20, 2023 12:00am Start: 06-17-2021 End: 10-24-2022 take 1 tablet by mouth twice daily Ciprofloxacin Hcl 500 mg tablet Discontinued 500 mg PO TWICE A DAY June 17, 2021 12:00am October 24, 2022 9:10am dexamethasone 6 mg oral tablet (2 sources) Corticosteroid Start: 12-20-2023 take 1 tablet by mouth once daily Dexamethasone 6 mg tablet Active 6 mg PO DAILY December 20, 2023 12:00am Start: 10-24-2022 End: 01-12-2023 take 1 tablet by mouth once daily Dexamethasone 6 mg tablet Discontinued 6 mg PO DAILY October 24, 2022 12:00am January 12, 2023 7:45am fenofibrate 200 mg oral capsule (20 sources) Peroxisome Proliferator Receptor alpha Agonist Start: 10-03-2018 End: 07-16-2024 take 1 capsule by mouth once daily before breakfast fenofibrate (LOFIBRA) 200 mg capsule Take 1 capsule by mouth daily before breakfast. 90 capsule 1 07/16/2024 Active Comment on above: Take 1 capsule by [facility] daily before breakfast. ferrous sulfate 325 mg oral tablet (20 sources) Start: 05-17-2020 take 1 tablet by mouth once daily Ferrous Sulfate 325 MG tablet Active 325 mg PO DAILY@0800 May 17, 2020 1:00am Comment on above: Take 325 mg by mouth daily with breakfast. glimepiride 1 mg oral tablet (20 sources) Sulfonylurea Start: 05-17-2020 End: 07-16-2024 take 1 tablet by mouth twice daily glimepiride (AMARYL) 1 mg tablet Take 1 tablet by mouth two times a day. 180 tablet 1 07/16/2024 Active Start: 07-23-2018 take 4 tablets by mo [facility] twice daily at mealtime glimepiride (AMARYL) 1 MG tablet Indications: Type 2 diabetes mellitus without complication, without long-term current use of insulin (HCC) Take 4 tablets by mouth 2 times daily (with meals) 60 tablet 1 07/23/2018 Active Comment on above: Take 1 tablet by jeffrey twice daily. Take 1 tablet by jeffrey two times a day. 3 ml insulin aspart, human 100 unt/ml pen injector (20 sources) Insulin Analog Start: 3 End: 5 inject 6 [IU] by subcutaneous injection three times daily before mealtime insulin aspart U-100 (NOVOLOG FLEXPEN U-100 INSULIN) 100 unit/mL (3 mL) Inject 6 Units subcutaneously three times a day before meals. 5 Each 1 06/10/2024 Active Start: 05-18-2021 End: 07-08-2022 inject 6 [IU] by subcutaneous injection three times daily before mealtime insulin aspart U-100 (NOVOLOG FLEXPEN U-100 INSULIN) 100 unit/mL (3 mL) Inject 6 Units subcutaneously three times daily before meals. 5 Each 1 07/08/2022 Active Start: 05-17-2020 inject 6 [IU] by sub cutaneous injection three times daily Insulin Aspart U-100 100 UNIT/ML solution Active 6 U SQ THREE TIMES A DAY May 17, 2020 1:00am Start: 08-23-2018 insulin aspart (NOVOLOG FLEXPEN) 100 UNIT/ML injection pen Inject 5 Units into the skin 3 times daily (before meals) 5 pen 3 08/23/2018 Active Comment on above: Inject 6 Units subcu taneously three times daily before meals. Inject 6 Units subcu taneously three times a day before meals. insulin glargine-yfgn (SEMGLEE) 100 unit/mL (3 mL) insulin pen (10 sources) Start: insulin glargine-yfgn (SEMGLEE) 100 unit/mL (3 mL) insulin pen Inject 25 Units subcutaneously daily at bedtime. 5 Each 5 04/01/2024 Active lovastatin 20 mg oral tablet (20 sources) HMG-CoA Reductase Inhibitor Start: 019 End: take 1 tablet by mouth once daily at bedtime lovastatin (MEVACOR) 20 mg tablet Indications: Dyslipidemia Take 1 tablet by mouth daily at bedtime. 90 tablet 1 06/07/2024 Active Comment on above: Take 1 tablet by jeffrey th daily at bedtime. metFORMIN hydrochloride 1000 mg oral tablet (20 sources) Biguanide Start: 021 End: take 1 tablet by mouth twice daily at mealtime metFORMIN (GLUCOPHAGE) 1,000 mg tablet Take 1 tablet by mouth two times a day with meals. 180 tablet 1 07/01/2024 Active Comment on above: Take 1 tablet by jeffrey th twice daily with meals. Take 1 tablet by [facility] two times a day with meals. omeprazole 40 mg delayed release oral capsule (20 sources) Proton Pump Inhibitor Start: 022 End: 025 take 1 capsule by mouth once daily before breakfast omeprazole (PRILOSEC) 40 mg capsule Indications: GERD without esophagitis Take 1 capsule by mouth daily before breakfast. 1/2 hr before meal. 90 capsule 1 07/16/2024 Active Start: 01-08-2021 take 1 capsule by [facility] once daily before breakfast omeprazole (PRILOSEC) 40 mg capsule Indications: GERD without esophagitis Take 1 capsule by mouth daily before breakfast. 1/2 hr before meal. 90 capsule 1 01/08/2021 Active Start: 05-17-2020 take 2 tablets by [facility] once daily Omeprazole 20 MG tablet,delayed release (DR/EC) Active 40 mg PO DAILY May 17, 2020 1:00am Start: 05-17-2020 take 40 mg by mouth once daily Omeprazole Active 40 MG PO DAILY May 17, 2020 1:00am Start: 05-01-2018 take 1 capsule by [facility] once daily omeprazole (PRILOSEC) 20 MG delayed release capsule Take 1 capsule by mouth Daily Take morning of surgery with a sip of water if needed 90 capsule 2 05/01/2018 Active Comment on above: Take 1 capsule by [facility] daily before breakfast. 1/2 hr before meal. ondansetron 4 mg disintegrating oral tablet (5 sources) Serotonin-3 Receptor Antagonist Start: 07-17-19 take 1 tablet by mouth every eight hours as needed ondansetron orally disintegrating (ZOFRAN ODT) 4 mg disintegrating tablet Take 1 tablet by mouth every 8 hours as needed for nausea/vomiting. 30 tablet 1 07/16/2024 Active 1000 ml sodium chloride 9 mg/ml injection (4 sources) Start: 06-29-19 0.9 % sodium chloride infusion Start: 06-28-2021 sodium chlorid e flush 0.9 % injection 5-40 mL Completed/Discontinued Medications Medication Drug Class(es) Dates Sig (Normalized) Sig (Original) azithromycin 250 mg oral tablet (1 source) Macrolide Antimicrobial Start: 01-12-2023 End: 07-20-2024 take 2-5 tablets by mouth once daily Azithromycin 250 mg tablet Discontinued 0 PO .COMPLEX January 12, 2023 12:00am October 07, 2023 6:16pm take 500 mg today (day 1), then 250 mg for 4 days (days 2-5) PO benzonatate 200 mg oral capsule (1 source) Non-narcotic Antitussive Start: 10-24-2022 End: 10-07-2023 take 1 capsule by mouth three times daily as needed for cough Benzonatate 200 mg capsule Discontinued 200 mg PO THREE TIMES A DAY as needed for cough October 24, 2022 12:00am October 07, 2023 6:17pm cephalexin 500 mg oral tablet (3 sources) Cephalosporin Antibacterial Start: 10-09-2023 End: 10-17-2023 take 1 tablet by mouth twice daily Cephalexin 500 mg tablet Discontinued 500 mg PO TWICE A DAY October 09, 2023 12:00am October 17, 2023 2:00pm start on 10/09/23 Start: 09-17-2022 End: 10-24-2022 take 1 capsule by mouth every six hours Cephalexin 500 mg capsule Discontinued 500 mg PO EVERY 6 HOURS 28 September 17, 2022 12:00am October 24, 2022 9:10am erythromycin 0.005 mg/mg ophthalmic ointment (2 sources) Macrolide, Macrolide Antimicrobial Start: 09-17-2022 End: 10-07-2023 Erythromycin 5 mg/gram (0.5 %) ointment Discontinued 1 NMA RIGHT EYE EVERY 6 HOURS 3.5 September 17, 2022 12:00am October 07, 2023 6:17pm Start: 09-17-2022 Erythromycin A ctive 1 APPLIC RIGHT EYE EVERY 6 HOURS 3.5 5 September 17, 2022 12:00am 3 ml insulin glargine 100 unt/ml pen injector (20 sources) Insulin Analog Start: 03-28-2023 End: 04-01-2024 insulin glargine (BASAGLAR KWIKPEN U-100 INSULIN) 100 unit/mL (3 mL) Inject 25 Units subcutaneously daily at bedtime. 5 Each 5 01/30/2024 04/01/2024 Discontinued (Not on Formulary) Start: 07-08-2022 insulin glargi ne (BASAGLAR KWIKPEN U-100 INSULIN) 100 unit/mL (3 mL) Inject 25 Units subcutaneously daily at bedtime. 5 Each 5 07/08/2022 Active Start: 07-08-2022 insulin glargi ne (BASAGLAR KWIKPEN U-100 INSULIN) 100 unit/mL (3 mL) Inject 25 Units subcutaneously daily at bedtime. 5 Each 5 07/08/2022 Active Start: 05-16-2022 End: 07-08-2022 insulin glargine (BASAGLAR K WIKPEN U-100 INSULIN) 100 unit/mL (3 mL) Inject 30 Units subcutaneously daily at bedtime. 5 Each 5 05/16/2022 07/08/2022 Discontinued (Adjust Sig - Block E-Cancel) Start: 09-29-2020 End: 05-16-2022 insulin glargine (BASAGLAR K WIKPEN U-100 INSULIN) 100 unit/mL (3 mL) Inject 30 Units subcutaneously daily at bedtime. 5 Pen 5 07/19/2021 05/16/2022 Discontinued Start: 05-17-2020 inject 30 [IU] by jackson bcutaneous injection at bedtime Insulin Glargine 100 UNIT/ML insulin pen Active 30 U SQ AT BEDTIME May 17, 2020 1:00am Start: 09-14-2018 insulin glargi ne (BASAGLAR KWIKPEN) 100 UNIT/ML injection pen Indications: Type 2 diabetes mellitus without complication, without long-term current use of insulin (HCC) Inject 30 Units into the skin nightly 5 pen 0 09/14/2018 Active Comment on above: Inject 30 Units subc utaneously daily at bedtime. Inject 25 Units subc utaneously daily at bedtime. loratadine 10 mg oral tablet (19 sources) Start: 2 End: 3 take 1 tablet by mouth once daily loratadine (CLARITIN) 10 mg tablet Indications: Headache, unspecified headache type Take 1 tablet by mouth once daily. 90 tablet 3 10/22/2021 07/08/2022 Discontinued Comment on above: Take 1 tablet by jeffrey th once daily. magnesium glycinate 100 mg oral tablet (20 sources) Start: 3 End: 5 take 1 tablet by mouth every other day Magnesium Glycinate 100 mg tab Take 1 tablet by mouth every other day. 11/08/2022 07/16/2024 Discontinued Comment on above: Take 1 tablet by jeffrey th every other day. magnesium oxide 250 mg oral tablet (20 sources) Start: End: take 1 tablet by mouth once daily Magnesium Oxide 250 mg magnesium tab Take 1 tablet by mouth once daily. 0 07/08/2022 11/08/2022 Discontinued (Discontinued by Patient) Start: 07-08-2021 take 1 tablet by jeffrey th twice daily magnesium oxide (MAG-OX) 400 mg (241.3 mg magnesium) tablet Take 1 tablet by mouth twice daily. 180 tablet 3 07/08/2021 Active Start: 01-18-2021 End: 07-08-2021 take 1 tablet by mouth once daily magnesium oxide (MAG-OX) 400 mg (241.3 mg magnesium) tablet Take 1 tablet by mouth once daily. 90 tablet 3 01/18/2021 07/08/2021 Discontinued Comment on above: Take 1 tablet by jeffrey th once daily. Take 1 tablet by jeffrey th twice daily. methylPREDNISolone 4 mg oral tablet (1 source) Corticosteroid Start : 01-12 End: 01-18 take 1 tablet by mouth once Methylprednisolone (Medrol (Aleksandar)) 4 mg tablets,dose pack Discontinued 4 mg PO per package directions 21 January 12, 2023 12:00am January 17, 2023 12:00am January 18, 2023 12:05am tadalafil 20 mg oral tablet (20 sources) Phosphodiesterase 5 Inhibitor Start : 08-28 End: 07-08 take 1 tablet by mouth once daily as needed Tadalafil (CIALIS) 20 mg tab(s) Take 1 tablet by mouth once daily. As needed. 30 tablet 2 08/28/2020 07/08/2022 Discontinued Comment on above: Take 1 tablet by jeffrey th once daily. As needed. Problems Active Problems Problem Classification Problem Date Documented Da te Episodic/Chronic Abdominal pain (2 sources) Abdominal pain; Translations: [Unspecified abdominal pain] Onset: 5 06-16-2024 Episodic Acute bronchitis (1 source) Acute bronchitis; Translations: [Acute bronchitis, unspecified] 01-12-2023 Episodic Chronic kidney disease (20 sources) Chronic kidney disease stage 3; Translations: [Stage 3 chronic kidney disease, unspecified whether stage 3a or 3b CKD (HCC)] Onset: 0 Chronic Chronic kidney disease (1 source) Chronic kidney disease; Translations: [Stage 3b chronic kidney disease (HCC)] Onset: 3 Deficiency and other anemia (20 sources) Anemia of chronic disease; Translations: [Anemia in other chronic diseases classified elsewhere] Onset: 0 11-03-2019 Chronic Deficiency and other anemia (1 source) Anemia in other chronic diseases classified elsewhere; Translations: [Anemia of chronic disease] Onset: 0 Chronic Diabetes mellitus with complications (20 sources) Type 2 diabetes mellitus; Translations: [Type 2 diabetes mellitus with diabetic chronic kidney disease] Onset: 9 02-25-2020 Chronic Diabetes mellitus without complication (7 sources) Diabetes mellitus; Translations: [Type 2 diabetes mellitus without complications] Onset: 6 12-26-2015 Chronic Diabetes mellitus without complication (1 source) Diabetes mellitus without complication; Translations: [Type 2 diabetes mellitus with stage 3b chronic kidney disease, with long-term current use of insulin (HCC)] Onset: 3 Diseases of white blood cells (3 sources) Leukocytosis; Translations: [Elevated white blood cell count, unspecified] Onset: 6 12-26-2015 Chronic Disorders of lipid metabolism (20 sources) Hyperlipidemia; Translations: [Hyperlipidemia, unspecified] Onset: 6 09-03-2018 Chronic Diverticulosis and diverticulitis (20 sources) Diverticular disease; Translations: [Diverticulosis of intestine, part unspecified, without perforation or abscess without bleeding] Onset: 3 07-08-2022 Chronic Esophageal disorders (20 sources) Gastroesophageal reflux disease without esophagitis; Translations: [Gastro-esophageal reflux disease without esophagitis] Onset: 9 09-03-2018 Chronic Essential hypertension (20 sources) Essential hypertension; Translations: [Essential (primary) hypertension] Onset: 6 02-27-2020 Chronic Genitourinary symptoms and ill-defined conditions (1 source) Blood in urine Episodic Headache; including migraine (1 source) Headache; Translations: [Headache, unspecified headache type] Episodic Heart valve disorders (1 source) Mitral valve disorder; 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, unspecified] Onset: 6 12-26-2015 Chronic Hyperplasia of prostate (20 sources) Benign prostatic hyperplasia; Translations: [Benign prostatic hyperplasia with lower urinary tract symptoms] Onset: 9 09-03-2018 Chronic Hypertension with complications and secondary hypertension (20 sources) Chronic kidney disease due to hypertension; Translations: [Hypertensive chronic kidney disease with stage 1 through stage 4 chronic kidney disease, or unspecified chronic kidney disease] Onset: 9 02-25-2020 Chronic Immunizations and screening for infectious disease (1 source) Vaccination needed; Translations: [Encounter for immunization] Episodic Inflammation; infection of eye (except that caused by tuberculosis or sexually transmitteddisease) (2 sources) Blepharitis; Translations: [Unspecified blepharitis unspecified eye, unspecified eyelid] 09-17-2022 Episodic Nutritional deficiencies (1 source) Vitamin D deficiency; Translations: [Vitamin D deficiency, unspecified] Onset: 8 05-01-2017 Chronic Open wounds of extremities (3 sources) Laceration of toe; Translations: [Laceration without foreign body of unspecified toe without damage to nail, initial encounter] 02-18-2022 Episodic Osteoarthritis (1 source) Degenerative joint disease involving multiple joints; Translations: [Polyosteoarthritis, unspecified] Onset: 8 10-11-2017 Chronic Other and unspecified benign neoplasm (2 sources) History of adenomatous polyp of colon; Translations: [Personal history of colonic polyps] Episodic Other and unspecified benign neoplasm (1 source) Polyp of sigmoid colon; Translations: [Polyp of colon] 02-05-2018 Episodic Other gastrointestinal disorders (4 sources) History of gastroesophageal reflux disease; Translations: [Personal history of other diseases of the digestive system] 06-17-2021 Episodic Other injuries and conditions due to external causes (3 sources) Injury of toe; Translations: [Unspecified injury of unspecified foot, initial encounter] 02-18-2022 Episodic Other lower respiratory disease (2 sources) Dyspnea; Translations: [Shortness of breath] 01-15-2024 Episodic Other lower respiratory disease (1 source) Hypoxia; Translations: [Hypoxemia] 10-17-2023 Episodic Other nutritional; endocrine; and metabolic disorders (20 sources) Hypomagnesemia; Translations: [Hypomagnesemia] Onset: 9 01-18-2021 Chronic Other nutritional; endocrine; and metabolic disorders (1 source) Hypomagnesemia; Translations: [Hypomagnesemia] Onset: 4 Chronic Other upper respiratory infections (2 sources) Upper respiratory infection; Translations: [Acute upper respiratory infection, unspecified] Onset: 5 Resolved: 6 12-26-2015 Episodic Pancreatic disorders (not diabetes) (4 sources) Pancreatitis; Translations: [Acute pancreatitis without necrosis or infection, unspecified] 05-18-2020 Episodic Screening and history of mental health and substance abuse codes (2 sources) Encounter for screening for depression; Translations: [Encounter for screening examination for other mental health and behavioral disorders] Onset: 5 Episodic Substance-related disorders (20 sources) Smoker; Translations: [Nicotine dependence, unspecified, uncomplicated] Onset: 9 09-03-2018 Chronic Superficial injury; contusion (1 source) Blister; Translations: [Blister (nonthermal), unspecified lower leg, initial encounter] 10-19-2022 Episodic Unclassified (1 source) Cough, unspecified; Translations: [Cough, unspecified] Onset: 4 Urinary tract infections (6 sources) Urinary tract infectious disease; Translations: [Urinary tract infection, site not specified] Onset: 6 Resolved: 8 2015 Episodic Viral infection (5 sources) Disease caused by 2019-nCoV; Translations: [COVID-19] Onset: 2 03-23-2021 Episodic Viral infection (1 source) COVID-19; Translations: [COVID-19] Onset: 4 Past or Other Problems Problem Classification Problem Date Documented Da te Episodic/Chronic Abdominal hernia (1 source) Left inguinal hernia ; Translations: [Unilateral inguinal hernia, without obstruction or gangrene, not specified as recurrent] Onset: 07-26-2016 07-26-2016 Episodic Administrative/social admission (20 sources) Advance directive discussed with patient; Translations: [Other specified counseling] Onset: 07-07-2021 07-07-2021 Episodic Calculus of urinary tract (20 sources) History of calculus of kidney; Translations: [Personal history of urinary calculi] Onset: 12-26-2015 09-03-2018 Episodic Nausea and vomiting (20 sources) Intractable nausea and vomiting; Translations: [Nausea with vomiting, unspecified] Onset: 07-26-2016 Resolved: 10-11-2017 10-11-2017 Episodic Other aftercare (20 sources) Patient encounter status; Translations: [Other [facility] (current) drug therapy] Onset: 08-28-2020 08-28-2020 Episodic Other aftercare (1 source) Other [facility] (current) drug therapy; Translations: [Medication management] Onset: 08-28-2020 Episodic Other aftercare (1 source) senior care (current) use of insulin; Translations: [Type 2 diabetes mellitus with stage 3b chronic kidney disease, with long-term current use of insulin (HCC)] Onset: 07-08-2022 Episodic Other and unspecified benign neoplasm (20 sources) History of polyp of colon; Translations: [Personal history of colonic polyps] Onset: 09-03-2018 09-03-2018 Episodic Other gastrointestinal disorders (20 sources) Diarrhea; Translations: [Diarrhea, unspecified] Onset: 07-08-2022 Episodic Other infections; including parasitic (20 sources) Personal history of other infectious and parasitic diseases; Translations: [History of COVID-19] Onset: 03-23-2021 07-07-2021 Episodic Other liver diseases (1 source) High lipase level in serum; Translations: [Abnormal levels of other serum enzymes] Onset: 07-26-2016 Resolved: 10-11-2017 10-11-2017 Episodic Other lower respiratory disease (2 sources) Hypoxemia; Translations: [Hypoxemia] Onset: 10-09-2023 Episodic Other lower respiratory disease (1 source) Shortness of breath; Translations: [SOB (shortness of breath)] Onset: 01-15-2024 Episodic Other screening for suspected conditions (not mental disorders or infectious disease) (2 sources) Serum creatinine raised; Translations: [Other specified abnormal findings of blood chemistry] Onset: 10-09-2023 10-07-2023 Episodic Pneumonia (except that caused by tuberculosis or sexually transmitted disease) (1 source) Infective pneumonia; Translations: [Pneumonia, unspecified organism] Onset: 01-30-2012 Resolved: 12-26-2015 12-26-2015 Episodic Residual codes; unclassified (20 sources) Active living will ; Translations: [Other specified health status] Onset: 07-07-2021 07-07-2021 Episodic Septicemia (except in labor) (1 source) Sepsis due to Gram negative bacteria ; Translations: [Gram-negative sepsis, unspecified] Onset: 2015 Resolved: 10-11-2017 10-11-2017 Episodic Spondylosis; intervertebral disc disorders; other back problems (20 sources) Neck pain; Translations: [Cervicalgia] Onset: 07-08-2022 Episodic Results Test Name Value Interpretation Reference Range Facility [facility] 09-16-2024 [facility] Telephone ([facility]) JUAN M RODRIGUEZ ([id number]) 1935 M [facility] Date Time Provider Department 09/16/24 [facility] During your visit today, we recorded the following information about you: Luna Garcia LPN 09/16/2024 3:09 PM Signed Patient calling this morning at 8 am his blood sugar was 70, he had no symptoms at all. He took his medications, metformin, glimepiride and Humalog 6 units, he ate 2 pancakes and coffee. At 110 pm his blood sugar was 39 he had eaten salad with ham and egg roll at noon for lunch. He did not take any Humalog at lunch time. He was not having any symptoms. At 150 pm recheck blood sugar was 60 still no symptoms. At 245 pm rechecked blood sugar was 41. Asked patient how old was his meter,patient said his glucose meter is 6 years old, his test strips are new. Told patient asking PCP to send new generic meter and test strips to [facility] since he did not know which meter is covered. Pending generic meter and strips to file. Please advise Hyun Dave, HÉCTOR 09/16/2024 4:29 PM Signed Patient calls to check on status of request below. Current BS reading is 64. Reports he has been eating more than usual as his keeps pushing it. Reviewed care advice for low blood sugar readings with verbalized understanding. Patient reports he feels fine so doesn't really think it is low but is asking if provider could please send in the prescription today so he can quit poking himself so frequently and his can be reassured. Hyun Dave RN Allergies As of Date: 09/16/2024 Noted Allergy Reaction DILAUDID (HYDROMORPHONE (BULK)) 09/03/2018 1 - Mental Status Change LISINOPRIL 12/24/2014 14 - Other: See Comments Comments: angioedema MAGNESIUM OXIDE 11/10/2021 14 - Other: See Comments Comments: Loose stools, leg and foot pain PENICILLINS 12/16/2002 16 - Unknown Date Reviewed: 07/16/2024 Reviewed by: Evangelista Fisher LPN - Fully Assessed Reason for Visit: needs new glucose meter and strips [Other] Primary Visit Diagnosis:Type 2 diabetes mellitus with stage 3b chronic kidney disease, with long-term current use of insulin ([facility]) [E11.22, N18.32, Z79.4] Order(s):Blood-Glucos e Meter monitoring kitGlucose Meter of Choice - Kit - Dx: Type 2 DM - Controlled E11.9 Insulin Yes give meter that is covered by insuranceDisp: 1 eachRfl: 0 blood sugar diagnostic (BLOOD GLUCOSE TEST) test stripTest blood sugar(s) 4 times daily. Dx: Type 2 DM - Controlled E11.9 Insulin: YesDisp: 200 stripRfl: 11 Prescriptions as of 09/16/2024 - Blood-Glucose Meter monitoring kit Glucose Meter of Choice - Kit - Dx: Type 2 DM - Controlled E11.9 Insulin Yes give meter that is covered by insurance - blood sugar diagnostic (BLOOD GLUCOSE TEST) test strip Test blood sugar(s) 4 times daily. Dx: Type 2 DM - Controlled E11.9 Insulin: Yes - amLODIPine (NORVASC) 5 mg tablet Take 1 tablet by mouth once daily. one tab daily - fenofibrate (LOFIBRA) 200 mg capsule Take 1 capsule by mouth daily before breakfast. - glimepiride (AMARYL) 1 mg tablet Take 1 tablet by mouth two times a day. - omeprazole (PRILOSEC) 40 mg capsule Take 1 capsule by mouth daily before breakfast. 1/2 hr before meal. - ondansetron orally disintegrating (ZOFRAN ODT) 4 mg disintegrating tablet Take 1 tablet by mouth every 8 hours as needed for nausea/vomiting. - metFORMIN (GLUCOPHAGE) 1,000 mg tablet Take 1 tablet by mouth two times a day with meals. - insulin aspart U-100 (NOVOLOG FLEXPEN U-100 INSULIN) 100 unit/mL (3 mL) Inject 6 Units subcutaneously three times a day before meals. - Lancets (MICROLET LANCET) 1 Each four times daily. Dx: Type 2 DM - Controlled E11.9 Insulin: Yes - lovastatin (MEVACOR) 20 mg tablet Take 1 tablet by mouth daily at bedtime. - blood sugar diagnostic (CONTOUR TEST STRIPS) test strip Test blood sugar(s) 4 times daily. Dx: Type 2 DM - Controlled E11.9 Insulin: Yes - insulin glargine-yfgn (SEMGLEE) 100 unit/mL (3 mL) insulin pen Inject 25 Units subcutaneously daily at bedtime. - albuterol HFA (VENTOLIN HFA) 90 mcg/actuation inhaler Inhale 2 Puffs as instructed every 4 hours as needed for wheezing/shortness of breath. - Insulin [place], Disposable, (SURE COMFORT PEN NEEDLE) 32 gauge x 5/32 1 Each four times daily. - Cholecalciferol, Vitamin D3, 50 mcg (2,000 unit) cap Take 1 capsule by mouth. - ferrous sulfate 325 mg (65 mg iron) tablet Take 325 mg by mouth daily with breakfast. - aspirin, enteric coated (ASPIRIN, ENTERIC COATED) 81 mg EC tablet Take 1 tablet by mouth once daily. Problem List As Of Date 09/16/2024 Noted Resolved Type 2 diabetes mellitus with stage 3b chronic *09/03/2018 Dyslipidemia [E78.5] 09/03/2018 GERD without esophagitis [K21.9] 09/03/2018 Hypertensive chronic kidney disease with stage *09/03/2018 History of kidney stones [Z87.44 (more content not included)... Normal [facility] 09-12-2024 [facility] Telephone ([facility]) JUAN M RODRIGUEZ ([id number]) 1935 M [facility] Date Time Provider Department 09/12/24 TAYE HORAN During your visit today, we recorded the following information about you: Madison Woodard RN 09/12/2024 9:25 AM Signed Pt called in and was requesting a refill on his Glimepiride. I let Pt know that it was just sent in on 07/16/24 to [facility] in [place]. I told him to call the pharmacy because they had probably put it on hold since he still had refills from another time. Pt states he will call in. If Pt cannot get refills he will call back in. Madison Woodard RN Allergies As of Date: 09/12/2024 Noted Allergy Reaction DILAUDID (HYDROMORPHONE (BULK)) 09/03/2018 1 - Mental Status Change LISINOPRIL 12/24/2014 14 - Other: See Comments Comments: angioedema MAGNESIUM OXIDE 11/10/2021 14 - Other: See Comments Comments: Loose stools, leg and foot pain PENICILLINS 12/16/2002 16 - Unknown Date Reviewed: 07/16/2024 Reviewed by: Evangelista Fisher LPN - Fully Assessed Reason for Visit: Medication Request [138] Prescriptions as of 09/12/2024 - amLODIPine (NORVASC) 5 mg tablet Take 1 tablet by mouth once daily. one tab daily - fenofibrate (LOFIBRA) 200 mg capsule Take 1 capsule by mouth daily before breakfast. - glimepiride (AMARYL) 1 mg tablet Take 1 tablet by mouth two times a day. - omeprazole (PRILOSEC) 40 mg capsule Take 1 capsule by mouth daily before breakfast. 1/2 hr before meal. - ondansetron orally disintegrating (ZOFRAN ODT) 4 mg disintegrating tablet Take 1 tablet by mouth every 8 hours as needed for nausea/vomiting. - metFORMIN (GLUCOPHAGE) 1,000 mg tablet Take 1 tablet by mouth two times a day with meals. - insulin aspart U-100 (NOVOLOG FLEXPEN U-100 INSULIN) 100 unit/mL (3 mL) Inject 6 Units subcutaneously three times a day before meals. - Lancets (MICROLET LANCET) 1 Each four times daily. Dx: Type 2 DM - Controlled E11.9 Insulin: Yes - lovastatin (MEVACOR) 20 mg tablet Take 1 tablet by mouth daily at bedtime. - blood sugar diagnostic (CONTOUR TEST STRIPS) test strip Test blood sugar(s) 4 times daily. Dx: Type 2 DM - Controlled E11.9 Insulin: Yes - insulin glargine-yfgn (SEMGLEE) 100 unit/mL (3 mL) insulin pen Inject 25 Units subcutaneously daily at bedtime. - albuterol HFA (VENTOLIN HFA) 90 mcg/actuation inhaler Inhale 2 Puffs as instructed every 4 hours as needed for wheezing/shortness of breath. - Insulin [place], Disposable, (SURE COMFORT PEN NEEDLE) 32 gauge x 5/32 1 Each four times daily. - Cholecalciferol, Vitamin D3, 50 mcg (2,000 unit) cap Take 1 capsule by mouth. - ferrous sulfate 325 mg (65 mg iron) tablet Take 325 mg by mouth daily with breakfast. - aspirin, enteric coated (ASPIRIN, ENTERIC COATED) 81 mg EC tablet Take 1 tablet by mouth once daily. Problem List As Of Date 09/12/2024 Noted Resolved Type 2 diabetes mellitus with stage 3b chronic *09/03/2018 Dyslipidemia [E78.5] 09/03/2018 GERD without esophagitis [K21.9] 09/03/2018 Hypertensive chronic kidney disease with stage *09/03/2018 History of kidney stones [Z87.442] 09/03/2018 History of colonic polyps [Z86.0100] 09/03/2018 Smoker [F17.200] 09/03/2018 Benign prostatic hyperplasia with lower urinary*09/03/2018 Medicare annual wellness visit, subsequent [Z00*09/03/2018 Hypomagnesemia [E83.42] 01/23/2019 Diabetic eye exam (HCC) [Z01.00, E11.9] 05/07/2019 Stage 3b chronic kidney disease (HCC) [N18.32] 10/01/2019 Anemia of chronic disease [D63.8] 11/03/2019 Essential hypertension [I10] 09/03/2018 Medication management [Z79.899] 08/28/2020 History of COVID-19 [Z86.16] 03/23/[address] [Z78.9] 07/07/2021 Advance directive discussed with patient [Z71.8*07/07/2021 Diverticulosis [K57.90] 07/08/2022 Neck pain [M54.2] 07/08/2022 Diarrhea [R19.7] 07/08/2022 Nausea [R11.0] 07/08/2022 Encounter Status:Closed by MADISON WOODARD on 09/12/24 [facility] SEBASTIANOVduncan 07-16-2024 CNOV Office Visit (FAMDalilaWS ) JUAN M RODRIGUEZ ([id number]) 1935 M [facility] Date Time Provider Department 07/16/24 11:40 AM JUDI RICE During your visit today, we recorded the following information about you: Temperature Pulse Respiration Blood pressure 97 degrees 81/minute 18/minute 112/60 Weight Height 93.4 kg 1.83 m Judi Rice PA-C 07/16/2024 1:22 PM Signed Juan M Rodriguez is a 88 year old male here for a Medicare wellness visit. Medicare Health Risk Assessment General Health Good Exercise: Minutes/Day none Exercise: Days/Week 0 Alcohol: Daily Use no Alcohol: Drinks/Day 0 Alcohol: 6 or more drinks never Feel off balance No- rare Concerns: Teeth/Dentures Yes- trouble finding dentist he likes Concerns: Sexual function no Troubled by feelings no Frequency: Eating healthy diet yes ADLs requiring help no Safety precautions in home/vehicle yes Smoke, vape, chews tobacco Yes-cigar Difficulty hearing yes Difficulty seeing No Current Providers Specialists: I have reviewed specialist-related care of the patient in the medical record. Medical/Family history review Reviewed and updated problem list, medical/surgical/fami ly/social history, medications, and allergies. Opioid use review Opioid Medications (last 90 days) No data to display Anxiety/Depression screening PHQ-2 Score: 0 (Lower risk for depression) ALON-7 Score: 11 (Moderate Anxiety) Recommendation: no further intervention at this time Cognitive screening Mini Cog Score: 5 Cognitive screening reviewed and No further action needed (score 3-5). Functional Observation Was the patient's Timed Up AND Go test unsteady or >= 12 seconds? No Advance Care Planning Surrogate decision maker and/or advance care plan documented Measurements BP 112/60 (BP Site: Left Arm, BP Position: Sitting, BP Cuff Size: Large Adult) Pulse 81 Temp 36.1 ?C (97 ?F) Resp 18 Ht 183 cm (6' 0.05) Wt 93.4 kg (206 lb) SpO2 96% BMI 27.90 kg/m? Vision Screening: Follows with optometry/ophthalmolo gy Assessment/Plan Medicare annual wellness visit, subsequent (Z00.00) - Counseled on healthy diet and regular exercise - Fall avoidance information provided - Personalized prevention plan provided Chief Complaint Patient presents with: Medicare Wellness Exam HPI Juan M Rodriguez is a 88 year old male who presents here today for extensive exam. Patient with Hx pf HTN, dyslipidemia, BPH, DM 2, GERD, CKD, smoker, anemia of chronic disease, BPH as well as those reviewed and addressed below and in ROS. Follow-Up: - Juan M prefers visits every 4 months instead of 6 months due to issues arising in the fifth and sixth months. - Reports frustration due to living with granddaughter, her , and their dog for the past 6 months; describes them as a pain in the butt. - Acknowledges being a worrier but states, I don't let stuff like that affect me. I take care of it. - Denies abnormal weight loss, fevers, fatigue, or weakness. - Has lost weight intentionally, going from 225 lbs to 212 lbs by cutting back on food. - Reports occasional nausea, taking medication once a month. - Denies significant cough, wheezing, or dyspnea; uses albuterol inhaler once a day. - Denies interest in pulmonary function test. - Reports poor sleep quality, difficulty falling and staying asleep, and is interested in trying melatonin. - Last colonoscopy was performed by a friend who is the head of surgery at [facility] in [place]. Last 3 Encounter Wt Readings: Date: Wt: 07/16/2024 93.4 kg (206 lb) 01/15/2024 99.3 kg (219 lb) 07/12/2023 103 kg (227 lb) Past medical history, appointments, medications, allergies reviewed. Previous Medical History PAST MEDICAL HISTORY Diagnosis Date Acute pancreatitis (HCC) Advance directive discussed with patient 07/07/2021 Discussed 06/2021 Anemia of chronic disease 11/03/2019 Benign prostatic hyperplasia with lower urinary tract symptoms 09/03/2018 COVID-19 virus infection 03/23/2021 03/19/2021 Diabetic eye exam (HCC) 05/07/2019 Last done: 04/30/2019 Diarrhea 07/08/2022 Consult Gastro: Friend patient cancelled appt on 08/31/2022 and did not reschedule. Saw gastro in [facility] Diverticulosis 07/08/2022 Dyslipidemia 09/03/2018 Essential hypertension 09/03/2018 GERD without esophagitis 09/03/2018 History of colonic polyps 09/03/2018 Last colonoscopy 08/2017: Needs repeat 3 yrs History of COVID-19 03/23/2021 03/19/2021 History of kidney stones 09/03/2018 Hypertensive chronic kidney disease with stage 1 through stage 4 chronic kidney disease, or unspecified chronic kidney disease 09/03/2018 Hypomagnesemia 01/23/[address] 07/07/2021 DPA: Doloras () Medicare annual wellness visit, subsequent 09/03/2018 Medicare Part B: 12/18/2001 Last (more content not included)... Normal [facility] ALBUMIN/CREATININE RATIO, UR INEon 07-10-2024 Albumin DL <= 20 mg/L (U) [Mass/Vol] 14.0 mg/L Normal [facility] Comment on above: Order Comment: Speci men Type: URINE SPECIMENOrdering Facility: [facility] Address: [address] [place] [address] Performed By: #### U ACR ####[facility] LABCLIA [id number] [place] [address] [place] Albumin/Creatinine (U) [Mass ratio] 14 mg/g Normal <30 [facility] Comment on above: Order Comment: Speci men Type: URINE SPECIMENOrdering Facility: [facility] Address: [address] [place] [address] Result Comment: Adul t Male and Female Nephrotic Criteria: <30 mg/g is considered normal to mildly increased 30-300 mg/g is considered moderately increased >300 mg/g is considered severely increased KDIGO. (2013). KDIGO 2012 Clinical Practice Guideline for the Evaluation and Management of Chronic Kidney Disease. Official Journal of the International Society of Nephrology, 3(1), 1-150. Performed By: #### U ACR ####[facility] LABIA [id number] [place] [address] [place] Creatinine (U) [Mass/Vol] 100.8 mg/dL Normal 20.0-300.0 [facility] Comment on above: Order Comment: Speci men Type: URINE SPECIMENOrdering Facility: [facility] Address: [address] [place] [address] Performed By: #### U ACR ####[facility] LABIA [id number] [place] [address] [place] CBC W Auto Differential pane l (Bld)on 07-10-2024 Basophils (Bld) [#/Vol] 0.05 10*3/uL Normal <0.11 [facility] Comment on above: Order Comment: Speci men Type: BLOOD SPECIMENOrdering Facility: [facility] Address: [address] [place] [address] Performed By: #### 5 7021-8 ####[facility] [id number] [place] [address] [place] Basophils/100 WBC (Bld) 0.5 % Normal C [facility] Comment on above: Order Comment: Speci men Type: BLOOD SPECIMENOrdering Facility: [facility] Address: [address] [place] [address] Performed By: #### 5 7021-8 ####[facility] LOSNehalJUSTINOLIA [id number] [place] [address] [place] Differential cell count method Nom (Bld) Auto Normal [facility] Comment on above: Order Comment: Speci men Type: BLOOD SPECIMENOrdering Facility: [facility] Address: [address] [place] [address] Performed By: #### 5 7021-8 ####[facility]ITALJUSTINOLIA [id number] [place] [address] [place] Eosinophils (Bld) [#/Vol] 0.26 10*3/uL Normal <0.46 [facility] Comment on above: Order Comment: Speci men Type: BLOOD SPECIMENOrdering Facility: [facility] Address: [address] [place] [address] Performed By: #### 5 7021-8 ####[facility] [id number] [place] [address] [place] Eosinophils/100 WBC (Bld) 2.7 % Normal [facility] Comment on above: Order Comment: Speci men Type: BLOOD SPECIMENOrdering Facility: [facility] Address: [address] [place] [address] Performed By: #### 5 7021-8 ####[facility]ITALJUSTINOLIA [id number] [place] [address] [place] Erythrocyte distribution width (RBC) [Ratio] 16.9 % High 11.5-15.0 [facility] Comment on above: Order Comment: Speci men Type: BLOOD SPECIMENOrdering Facility: [facility] Address: [address] [place] [address] Performed By: #### 5 7021-8 ####[facility]ITALNCLIA [id number] [place] [id number] [place] Hematocrit (Bld) [Volume fraction] 37.6 % Low 39.0-51.0 [facility] Comment on above: Order Comment: Speci men Type: BLOOD SPECIMENOrdering Facility: [facility] Address: [address] [place] [address] Performed By: #### 5 7021-8 ####[facility]ITALMURIEL [id number] [place] [address] [place] Hemoglobin (Bld) [Mass/Vol] 12.2 g/dL Low 13.0-17.0 [facility] Comment on above: Order Comment: Speci men Type: BLOOD SPECIMENOrdering Facility: [facility] Address: [address] [place] [address] Performed By: #### 5 7021-8 ####[facility]ITALMURIEL [id number] [place] [address] [place] Immature granulocytes (Bld) [#/Vol] 0.09 10*3/uL Normal <0.10 [facility] Comment on above: Order Comment: Speci men Type: BLOOD SPECIMENOrdering Facility: [facility] Address: [address] [place] [address] Performed By: #### 5 7021-8 ####[facility]ITALFELICEA [id number] [place] [address] [place] Immature granulocytes/100 WBC (Bld) 0.9 % Normal [facility] Comment on above: Order Comment: Speci men Type: BLOOD SPECIMENOrdering Facility: [facility] Address: [address] [place] [address] Performed By: #### 5 7021-8 ####[facility]ITALNCLIA [id number] [place] [address] [place] Lymphocytes (Bld) [#/Vol] 2.94 10*3/uL Normal 1.00-4.00 [facility] Comment on above: Order Comment: Speci men Type: BLOOD SPECIMENOrdering Facility: [facility] Address: [address] [place] [address] Performed By: #### 5 7021-8 ####[facility] GREGNCJHON [id number] [place] [address] [place] Lymphocytes/100 WBC (Bld) 30.0 % Normal [facility] Comment on above: Order Comment: Speci men Type: BLOOD SPECIMENOrdering Facility: [facility] Address: [address] [place] [address] Performed By: #### 5 7021-8 ####[facility]ITALNCJHON [id number] [place] [address] [place] MCH (RBC) [Entitic mass] 26.2 pg Normal 26.0-34.0 [facility] Comment on above: Order Comment: Speci men Type: BLOOD SPECIMENOrdering Facility: [facility] Address: [address] [place] [address] Performed By: #### 5 7021-8 ####[facility]ITALNCLIA [id number] [place] [address] [place] MCHC (RBC) [Mass/Vol] 32.4 g/dL Normal 30.5-36.0 [facility] Comment on above: Order Comment: Speci men Type: BLOOD SPECIMENOrdering Facility: [facility] Address: [address] [place] [address] Performed By: #### 5 7021-8 ####[facility]ITALNCLIA [id number] [place] [address] [place] MCV (RBC) [Entitic vol] 80.9 fL Normal 80.0-100.0 C [facility] Comment on above: Order Comment: Speci men Type: BLOOD SPECIMENOrdering Facility: [facility] Address: [address] [place] [address] Performed By: #### 5 7021-8 ####[facility] MILLTOWNCLIA [id number] [place] [address] [place] Monocytes (Bld) [#/Vol] 0.58 10*3/uL Normal <0.87 [facility] Comment on above: Order Comment: Speci men Type: BLOOD SPECIMENOrdering Facility: [facility] Address: [address] [place] [address] Performed By: #### 5 7021-8 ####[facility] HOSPITALLIA [id number] [place] [address] [place] Monocytes/100 WBC (Bld) 5.9 % Normal [facility] Comment on above: Order Comment: Speci men Type: BLOOD SPECIMENOrdering Facility: [facility] Address: [address] [place] [address] Performed By: #### 5 7021-8 ####[facility] HOSPITALLIA [id number] [place] [address] [place] Neutrophils (Bld) [#/Vol] 5.88 10*3/uL Normal 1.45-7.50 [facility] Comment on above: Order Comment: Speci men Type: BLOOD SPECIMENOrdering Facility: [facility] Address: [address] [place] [address] Performed By: #### 5 7021-8 ####[facility] MILLWNCLIA [id number] [place] [address] [place] Neutrophils/100 WBC (Bld) 60.0 % Normal [facility] Comment on above: Order Comment: Speci men Type: BLOOD SPECIMENOrdering Facility: [facility] Address: [address] [place] [address] Performed By: #### 5 7021-8 ####[facility]ITALNCLIA [id number] [place] [address] [place] Nucleated RBC (Bld) [#/Vol] 10*3/uL Normal <0.01 [facility] Comment on above: Order Comment: Speci men Type: BLOOD SPECIMENOrdering Facility: [facility] Address: [address] [place] [address] Performed By: #### 5 7021-8 ####[facility] HOSPITALNCDALTONA [id number] [place] [address] [place] Nucleated RBC/100 WBC (Bld) [Ratio] 0.0 /100 WBC Normal [facility] Comment on above: Order Comment: Speci men Type: BLOOD SPECIMENOrdering Facility: [facility] Address: [address] [place] [address] Performed By: #### 5 7021-8 ####[facility] HOSPITALNCJHON [id number] [place] [address] [place] Platelet mean volume (Bld) [Entitic vol] 10.3 fL Normal 9.0-12.7 [facility] Comment on above: Order Comment: Speci men Type: BLOOD SPECIMENOrdering Facility: [facility] Address: [address] [place] [address] Performed By: #### 5 7021-8 ####[facility]ITALNCLIA [id number] [place] [address] [place] Platelets (Bld) [#/Vol] 438 10*3/uL High 150-400 [facility] Comment on above: Order Comment: Speci men Type: BLOOD SPECIMENOrdering Facility: [facility] Address: [address] [place] [address] Performed By: #### 5 7021-8 ####[facility]ITALNCLIA [id number] [place] [address] [place] RBC (Bld) [#/Vol] 4.65 10*6/uL Normal 4.20-6.00 [facility] Comment on above: Order Comment: Speci men Type: BLOOD SPECIMENOrdering Facility: [facility] Address: [address] [place] [address] Performed By: #### 5 7021-8 ####[facility] H[facility]ITALNCLIA [id number] [place] [address] [place] WBC (Bld) [#/Vol] 9.80 10*3/uL Normal 3.70-11.00 [facility] Comment on above: Order Comment: Speci men Type: BLOOD SPECIMENOrdering Facility: [facility] Address: [address] [place] [address] Performed By: #### 5 7021-8 ####[facility]PITALNCUINTAH [facility] [id number] [place] [address] [place] Comprehensive metabolic 2000 panelon 07-10-2024 Albumin [Mass/Vol] 4.1 g/dL Normal 3.9-4.[address] [facility] Comment on above: Order Comment: Speci men Type: BLOOD SPECIMENOrdering Facility: [facility] Address: [address] [place] [address] Performed By: #### 1 9123-9, 27738-9 ####[facility]ITALNCLIA [id number] [place] [address] [place] ALP [Catalytic activity/Vol] 41 U/L Normal 38-113 [facility] Comment on above: Order Comment: Speci men Type: BLOOD SPECIMENOrdering Facility: [facility] Address: [address] [place] [address] Performed By: #### 1 9123-9, 46252-7 ####[facility] H[facility]ITALNCLIA [id number] [place] [address] [place] ALT [Catalytic activity/Vol] 21 U/L Normal 10-54 [facility] Comment on above: Order Comment: Speci men Type: BLOOD SPECIMENOrdering Facility: [facility] Address: [address] [place], [place] [address] Performed By: #### 1 9123-9, 21491-4 ####[facility] LOSCHRISTIANO [id number] [place] [address] [place] Anion gap [Moles/Vol] 12 mmol/L Normal 8-15 [facility] Comment on above: Order Comment: Speci men Type: BLOOD SPECIMENOrdering Facility: [facility] Address: [address] [place] [address] Performed By: #### 1 9123-9, 62366-9 ####[facility] LOSCHRISTIANO [id number] [place] [address] [place] AST [Catalytic activity/Vol] 25 U/L Normal 14-40 [facility] Comment on above: Order Comment: Speci men Type: BLOOD SPECIMENOrdering Facility: [facility] Address: [address] [place] [address] Performed By: #### 1 9123-9, 28351-3 ####[facility] LOS[facility] [id number] [place] [address] [place] Bilirubin [Mass/Vol] 0.3 mg/dL Normal 0.2-1.3 [facility] Comment on above: Order Comment: Speci men Type: BLOOD SPECIMENOrdering Facility: [facility] Address: [address] [place] [address] Performed By: #### 1 9123-9, 01485-5 ####[facility] & BABIESCATYA [id number] [place] [address] [place] Calcium [Mass/Vol] 9.7 mg/dL Normal 8.5-10.[address] [facility] Comment on above: Order Comment: Speci men Type: BLOOD SPECIMENOrdering Facility: [facility] Address: [address] [place] [address] Performed By: #### 1 9123-9, 55303-4 ####[facility] MILLWNCLIA [id number] [place] [address] [place] Chloride [Moles/Vol] 98 mmol/L Normal 98-107 [facility] Comment on above: Order Comment: Speci men Type: BLOOD SPECIMENOrdering Facility: [facility] Address: [address] [place] [address] Performed By: #### 1 9123-9, 38895-4 ####[facility]ITALNCLIA [id number] [place] [address] [place] CO2 [Moles/Vol] 26 mmol/L Normal 22-30 [facility] Comment on above: Order Comment: Speci men Type: BLOOD SPECIMENOrdering Facility: [facility] Address: [address] [place] [address] Performed By: #### 1 9123-9, 33228-8 ####[facility]ITALNCLIA [id number] [place] [address] [place] Creatinine [Mass/Vol] 1.50 mg/dL High 0.73-1.22 [facility] Comment on above: Order Comment: Speci men Type: BLOOD SPECIMENOrdering Facility: [facility] Address: [address] [place] [address] Performed By: #### 1 9123-9, 26514-6 ####[facility]ITALNCLIA [id number] [place] [address] [place] Creatinine and Glomerular filtration rate.predicted panel (S/P/Bld) 45 mL/min/1.73m??? Low >=60 [facility] Comment on above: Order Comment: Speci men Type: BLOOD SPECIMENOrdering Facility: [facility] Address: [address] [place] [address] Result Comment: Prema mated Glomerular Filtration Rate (eGFR) is calculated using the 2020 CKD-EPI creatinine equation. This equation utilizes serum creatinine, sex, and age as parameters. The creatinine assay has traceable calibration to isotope dilution-mass spectrometry. Refer to KDIGO guidelines for clinical interpretation. In patients with unstable renal function, e.g. those with acute kidney injury, the eGFR may not accurately reflect actual GFR. Performed By: #### 1 9123-9, 42025-8 ####[facility] RIVERSIDEWNCLIA [id number] [place] [address] [place] Glucose [Mass/Vol] 98 mg/dL Normal 74-[address] [facility] Comment on above: Order Comment: Luciana estrada Type: BLOOD SPECIMENOrdering Facility: [facility] Address: [address] [place] [address] Result Comment: The [place] Diabetes Association (ADA) provides guidance for cutoff values for fasting glucose and random glucose. The ADA defines fasting as no caloric intake for at least 8 hours. Fasting plasma glucose results between 100 to 125 mg/dL indicate increased risk for diabetes (prediabetes). Fasting plasma glucose results greater than or equal to 126 mg/dL meet the criteria for diagnosis of diabetes. In the absence of unequivocal hyperglycemia, results should be confirmed by repeat testing. In a patient with classic symptoms of hyperglycemia or hyperglycemic crisis, random plasma glucose results greater than or equal to 200 mg/dL meet the criteria for diagnosis of diabetes. Reference: Standards of Medical Care in Diabetes 2016, [place] Diabetes Association. Diabetes Care. 2016.39(Suppl 1). Performed By: #### 1 9123-9, 66682-0 ####[facility] RIVERSIDEWMELIA [id number] [place] [address] [place] Potassium [Moles/Vol] 4.0 mmol/L Normal 3.7-5.1 [facility] Comment on above: Order Comment: Luciana estrada Type: BLOOD SPECIMENOrdering Facility: [facility] Address: [address] [place] [address] Performed By: #### 1 9123-9, 69300-8 ####[facility] RIVERSIDEWMELIA [id number] [place] [address] [place] Protein [Mass/Vol] 7.2 g/dL Normal 6.3-8.[address] [facility] Comment on above: Order Comment: Speci men Type: BLOOD SPECIMENOrdering Facility: [facility] Address: [address] [place] [address] Performed By: #### 1 9123-9, 15066-4 ####[facility] HOSPITALJUSTINOUINTAH BAS[facility] [id number] [place] [address] [place] Sodium [Moles/Vol] 136 mmol/L Normal 136-[address] [facility] Comment on above: Order Comment: Speci men Type: BLOOD SPECIMENOrdering Facility: [facility] Address: [address] [place] [address] Performed By: #### 1 9123-9, 04385-1 ####[facility] [id number] [place] [address] [place] Urea nitrogen [Mass/Vol] 15 mg/dL Normal 9-24 [facility] Comment on above: Order Comment: Speci men Type: BLOOD SPECIMENOrdering Facility: [facility] Address: [address] [place] [address] Performed By: #### 1 9123-9, 28785-6 ####[facility] HOSPITALAndrew [id number] [place] [address] [place] HbA1c (Bld)on 07-10-2024 Average glucose Estimated from glycated hemoglobin (Bld) [Mass/Vol] 134 mg/dL Normal [facility] Comment on above: Order Comment: Speci men Type: BLOOD SPECIMENOrdering Facility: [facility] Address: [address] [place] [address] Result Comment: eAG: (Estimated average glucose) is a calculated value from HgbA1c and is counter sales representative of the average blood glucose level in the last 2-3 month period. Performed By: #### 5 5454-3 ####[facility] LABCLIA [id number] [address] [place] [address] [place] HbA1c (Bld) [Mass fraction] 6.3 % High 4.3-5.6 [facility] Comment on above: Order Comment: Luciana men Type: BLOOD SPECIMENOrdering Facility: [facility] Address: [address] [place] [address] Result Comment: [place] Diabetes Association guidelines indicate that patients with HgbA1c in the range 5.7-6.4% are at increased risk for development of diabetes, and intervention by lifestyle modification may be beneficial. HgbA1c greater or equal to 6.5% is considered diagnostic of diabetes. Performed By: #### 5 5454-3 ####[facility] LABCLIA [id number] [address] [address] [place] LIPID PANEL, NONFASTINGon Cholesterol [Mass/Vol] 143 mg/dL Normal <200 [facility] Comment on above: Order Comment: Luciana men Type: BLOOD SPECIMENOrdering Facility: [facility] Address: [address] [place] [address] Result Comment: <200 mg/dL, Desirable 200-239 mg/dL, Borderline high >239 mg/dL, High Performed By: #### L CALE, 2131-11 ####[facility] LABIA [id number] [address] [address] [place] HDL CHOLESTEROL, NF 50 mg/dL Normal >39 [facility] Comment on above: Order Comment: Luciana men Type: BLOOD SPECIMENOrdering Facility: [facility] Address: [address] [place] [id number] Result Comment: 40-5 9 mg/dL, Acceptable >59 mg/dL, High: Negative risk factor for coronary heart disease <40 mg/dL, Low: Positive risk factor for coronary heart disease Performed By: #### L IPPITER, 2131-11 ####[facility] LABCLIA [id number] [address] [address] [place] LDL CHOLESTEROL CALCULATED, NF 60 mg/dL Normal <100 [facility] Comment on above: Order Comment: Luciana estrada Type: BLOOD SPECIMENOrdering Facility: [facility] Address: [address] [place] [address] Result Comment: <100 mg/dL, Optimal 100-129 mg/dL, Near optimal/above optimal 130-159 mg/dL, Borderline high 160-189 mg/dL, High >189 mg/dL, Very high Secondary prevention optimal LDL Cholesterol levels are recommended to be <70 mg/dL LDL cholesterol is calculated using the Lopez-NIH equation. Performed By: #### L CALE, 2131-11 ####[facility] LABCLIA [id number] [address] LDL/HDL RATIO, NF 1.20 mg/dL Normal <2.54 [facility] Comment on above: Order Comment: Luciana estrada Type: BLOOD SPECIMENOrdering Facility: [facility] Address: [address] [place] [address] Result Comment: Refe rence: 1. National Cholesterol Education Program ATP III Guideline At-A-Glance Quick Desk Reference: National Heart, Lung, and Blood [place]. National Institutes of Health. 2001: NIH Publication No. 01-3305. 2. An International Atherosclerosis Society position paper: global recommendations for the management of dyslipidemia: executive summary, Atherosclerosis. 2014: 232(2):410-413. Performed By: #### L CALE, 2131-11 ####[facility] LABCLIA [id number] [address] OF [facility] NON HDL CHOL, NF 93 mg/dL Normal <130 [facility] Comment on above: Order Comment: Luciana estrada Type: BLOOD SPECIMENOrdering Facility: [facility] Address: [address] [place] [address] Result Comment: <130 mg/dL, Optimal 130-159 mg/dL, Near optimal/above optimal 160-189 mg/dL, Borderline high 190-219 mg/dL, High >219 mg/dL, Very high Secondary prevention optimal non HDL Cholesterol levels are recommended to be <100 mg/dL Performed By: #### L IPNF, 2131-11 ####[facility] LABCLIA [id number] [place] [address] [place] T CHOL/HDL RATIO NF 2.86 mg/dL Normal <5.10 [facility] Comment on above: Order Comment: Speci men Type: BLOOD SPECIMENOrdering Facility: [facility] Address: [address] [place] [address] Performed By: #### L IPNF, 2131-11 ####[facility] LABCLIA [id number] [place] [address] [place] TRIGLYCERIDES, NF 199 mg/dL High <150 [facility] Comment on above: Order Comment: Speci men Type: BLOOD SPECIMENOrdering Facility: [facility] Address: [address] [place] [address] Result Comment: <150 mg/dL, Normal 150-199 mg/dL, Borderline high 200-499 mg/dL, High >499 mg/dL, Very high Performed By: #### L IPNF, 2131-11 ####[facility] LABCLIA [id number] [place] [address] [place] VLDL CHOLESTEROL, NF 29 mg/dL Normal <30 [facility] Comment on above: Order Comment: Speci men Type: BLOOD SPECIMENOrdering Facility: [facility] Address: [address] [place] [address] Performed By: #### L IPNF, 2131-11 ####[facility] LABCLIA [id number] [place] [address] [place] Magnesium SerPl-mCncon 07-10 Magnesium [Mass/Vol] 1.7 mg/dL Normal 1.7-2.3 [facility] Comment on above: Order Comment: Speci men Type: BLOOD SPECIMENOrdering Facility: [facility] Address: [address] [place] [address] Performed By: #### 1 9123-9, 87172-5 ####[facility] [id number] [place] [address] [place] Urinalysis complete panel (U )on 07-10-2024 Bacteria LM.HPF (Urine sed) [#/Area] Negative Normal Negative [facility] Comment on above: Order Comment: Speci men Type: URINE SPECIMENOrdering Facility: [facility] Address: [address] [place] [address] Performed By: #### 2 4356-8 ####[facility] LABCLIA [id number] [place] [address] [place] Bilirubin Ql (U) Negative Normal Negative [facility] Comment on above: Order Comment: Speci men Type: URINE SPECIMENOrdering Facility: [facility] Address: [address] [place] [address] Performed By: #### 2 4356-8 ####[facility] LABCLIA [id number] [place] [address] [place] Clarity (Unsp spec) Clear Normal Clear [facility] Comment on above: Order Comment: Speci men Type: URINE SPECIMENOrdering Facility: [facility] Address: [address] [place] [address] Performed By: #### 2 4356-8 ####[facility] LABCLIA [id number] [address] STATES OF [facility] Color (U) Yellow Normal Yellow [facility] Comment on above: Order Comment: Speci men Type: URINE SPECIMENOrdering Facility: [facility] Address: [address] [place] [address] Performed By: #### 2 4356-8 ####[facility] LABCLIA [id number] [place] [address] [place] Epithelial cells LM.HPF (Urine sed) [#/Area] None Seen Normal [facility] Comment on above: Order Comment: Speci men Type: URINE SPECIMENOrdering Facility: [facility] Address: [address] [place] [address] Performed By: #### 2 4356-8 ####[facility] LABCLIA [id number] [address] [place] [address] [place] Glucose Test strip (U) [Mass/Vol] Negative Normal Negative [facility] Comment on above: Order Comment: Speci men Type: URINE SPECIMENOrdering Facility: [facility] Address: [address] [place] [address] Performed By: #### 2 4356-8 ####[facility] LABCLIA [id number] [address], [facility] [place] Hemoglobin Ql (U) Negative Normal Negative [facility] Comment on above: Order Comment: Speci men Type: URINE SPECIMENOrdering Facility: [facility] Address: [address] [place] [address] Performed By: #### 2 4356-8 ####[facility] LABCLIA [id number] [address], [place] [address] [place] Hyaline casts (Urine sed) [#/Area] 1-3 /LPF Abnormal 0 /LPF [facility] Comment on above: Order Comment: Speci men Type: URINE SPECIMENOrdering Facility: [facility] Address: [address] [place] [address] Performed By: #### 2 4356-8 ####[facility] LABCLIA [id number] [address] [place] [address] [place] Ketones Ql (U) Negative Normal Negative [facility] Comment on above: Order Comment: Speci men Type: URINE SPECIMENOrdering Facility: [facility] Address: [address] [place] [address] Performed By: #### 2 4356-8 ####[facility] LABCLIA [id number] [place] [address] [place] Leukocyte esterase Test strip Ql (U) Negative Normal Negative [facility] Comment on above: Order Comment: Speci men Type: URINE SPECIMENOrdering Facility: [facility] Address: [address] [place] [address] Performed By: #### 2 4356-8 ####[facility] LABCLIA [id number] [place] [address] [place] Nitrite Ql (U) Negative Normal Negative [facility] Comment on above: Order Comment: Speci men Type: URINE SPECIMENOrdering Facility: [facility] Address: [address] [place] [address] Performed By: #### 2 4356-8 ####[facility] LABCLIA [id number] [place] [address] [place] pH (U) 6.5 [pH] Normal <8.5 [facility] Comment on above: Order Comment: Speci men Type: URINE SPECIMENOrdering Facility: [facility] Address: [address] [place] [address] Performed By: #### 2 4356-8 ####[facility] LABCLIA [id number] [place] [address] [place] Protein (U) [Mass/Vol] Negative Normal Negative Cl [facility] Comment on above: Order Comment: Speci men Type: URINE SPECIMENOrdering Facility: [facility] Address: [address] [place] [address] Performed By: #### 2 4356-8 ####[facility] LABCLIA [id number] [place] [address] [place] RBC LM.HPF (Urine sed) [#/Area] 0-2 /HPF Normal 0-2 /HPF [facility] Comment on above: Order Comment: Speci men Type: URINE SPECIMENOrdering Facility: [facility] Address: [address] [place] [address] Performed By: #### 2 4356-8 ####[facility] LABIA [id number] [place] [address] [place] Specific gravity (U) [Rel density] 1.016 Normal 1.005-1.030 [facility] Comment on above: Order Comment: Speci men Type: URINE SPECIMENOrdering Facility: [facility] Address: [address] [place] [address] Performed By: #### 2 4356-8 ####[facility] LABIA [id number] [place] [address] [place] Urobilinogen Ql (U) 1.0 EU/dL Normal 0.2-1.0 EU/dL [facility] Comment on above: Order Comment: Speci men Type: URINE SPECIMENOrdering Facility: [facility] Address: [address] [place] [address] Performed By: #### 2 4356-8 ####[facility] [id number] [place] [address] [place] WBC LM.HPF (Urine sed) [#/Area] 0-5 /HPF Normal 0-5 /HPF [facility] Comment on above: Order Comment: Speci men Type: URINE SPECIMENOrdering Facility: [facility] Address: [address] [place] [address] Performed By: #### 2 4356-8 ####[facility]ITALIA [id number] [place] [address] [place] Vit B12 SerPl-ncon 04-23-2 025 Cobalamin (Vitamin B12) [Mass/Vol] 562 pg/mL Normal 232-1245 [facility] Comment on above: Order Comment: Speci men Type: BLOOD SPECIMENOrdering Facility: [facility] Address: [address] [place] [address] Performed By: #### L IPNF, 2132-9 ####[facility] LABIA [id number] [place] [id number] [place] [facility] Abdomen/Pelvis without Conto n 06-16-2024 Abdomen/Pelvis without Cont [facility] Imaging Services [place] [address] Abdomen/Pelvis without Cont MR#: [id number] Acct: [id number] Name: JUAN M RODRIGEUZ Rep #: [id number] : [id number] From: Olu Cheung MD PCP: Dr. Taye Horan MD Status: [facility] Study: Abdomen/Pelvis without Cont Date of Exam: 05/20 Exam# [id number] Ordering Dr: Lin Garcia PROCEDURE: ABDOMEN/PELVIS WITHOUT CONT 06/16/2024 REASON FOR EXAM: LLQ PAIN, HX KIDNEY STONES TECHNIQUE: Abdomen and pelvis CT without intravenous contrast. Noncontrast technique limits evaluation of the abdominal and pelvic viscera. Contiguous axial scans of 2.5 mm slice thicknesses. Sagittal and coronal reconstruction images were obtained. One or more dose reduction techniques were used (e.g., automated exposure control, adjustment of mA and/or kv according to patient size, use of iterative reconstruction technique). ORAL CONTRAST TYPE: None. COMPARISON: CT abdomen and pelvis dated 10/07/2023. FINDINGS: Lung bases: Mild hypoventilatory changes and/or parenchymal scarring. Mild bronchiectatic changes in the lower lobes. Severe coronary artery calcifications. Elevation of the right hemidiaphragm. Liver: Unremarkable. Gallbladder: Surgically absent. Spleen: Unremarkable. Pancreas: Mild atrophy. Adrenals: No masses or abnormal thickening. Kidneys: Multiple subcentimeter nonobstructing calculi in the left kidney. Bilateral renal cysts, largest on the left measuring 1.1 cm and 1.9 cm on the right. Bladder: Unremarkable. Reproductive Organs: Qbsd-qd-dcactutp prostatomegaly. Bowel: Severe diverticulosis, more prevalent in the left hemicolon without signs of diverticulitis. Appendix: Unremarkable. Lymph nodes: No suspicious lymphadenopathy. Vasculature: Diffuse atherosclerotic calcific disease of the aorta and iliac arteries. Peritoneum / Retroperitoneum: No free air. No free fluid. Anterior abdominal wall: Unremarkable. Bones: Multilevel spondylosis. CT/Abdomen/Pelvis without Cont IMPRESSION: 1. Left nonobstructing nephrolithiasis. 2. Bilateral renal cysts. 3. Status post cholecystectomy. 4. Mild pancreatic atrophy. 5. Severe colon diverticulosis without signs of diverticulitis. 6. Mild bronchiectatic changes in the bilateral lower lobes. 7. Severe coronary artery calcifications. 8. Elevation of the right hemidiaphragm. 9. Other nonacute findings detailed above. Reading Location: [facility] CC: Dr. Taye Horan MD; CORTNEY [employer] Material [employer]er: Signed Normal [facility] Absolute neutrophil countOrd ered By: Lin Garcia on 06-16-2024 Neutrophils (Bld) [#/Vol] 6.0 10*3/uL 2.0-7.[address] [facility] Anion gap in Serum or Plasma Ordered By: Lin Garcia on 06-16-2024 Anion gap [Moles/Vol] 12 mmol/L 5-15 [facility] BUN/creatinine ratioOrdered By: Lin Garcia on 06-16-2024 Urea nitrogen/Creatinine [Mass ratio] 12.3 mg/mg 10-[address] [facility] Basophil percentageOrdered B y: Lin Garcia on 06-16-2024 Basophils/100 WBC (Bld) 0.4 % 0-1 [facility] Bilirubin Test strip Ql (U)O rdered By: Lin Garcia on 06-16-2024 Bilirubin Ql (U) Negative Negative [facility] Bilirubin, totalOrdered By: Lin Garcia on 06-16-2024 Bilirubin [Mass/Vol] 0.25 mg/dL 0.00-1.30 [facility] CBC W/Diff, Automatedon 05-20 Absolute Lymph 3.26 X10 3/uL Normal 0.83-4.[address] [facility] Comment on above: Performed By: #### L 501.080 #### [facility] [address] [place], [address] Absolute Neut 6.0 X10 3/uL Normal 2.0-7.[address] [facility] Comment on above: Performed By: #### L 501.080 #### [facility] [address] [place], [address] Basophils/100 WBC (Bld) 0.4 % Normal 0-1 [facility] Comment on above: Performed By: #### L 501.080 #### [facility] [address] [place], [address] Eosinophils/100 WBC (Bld) 3.2 % Normal 0-[address] [facility] Comment on above: Performed By: #### L 501.080 #### [facility] [address] [place], [address] Erythrocyte distribution width (RBC) [Ratio] 16.4 % High 11.6-14.[address] [facility] Comment on above: Performed By: #### L 501.080 #### [facility] [address] [place], [address] Hematocrit (Bld) [Volume fraction] 36.2 % Low 40-[address] [facility] Comment on above: Performed By: #### L 501.080 #### [facility] [address] [place], [address] Hemoglobin (Bld) [Mass/Vol] 11.5 g/dL Low 13.0-16.[address] [facility] Comment on above: Performed By: #### L 501.080 #### [facility] [address] [place], [address] IG% 0.700 Normal 0.0-0.[address] [facility] Comment on above: Result Comment: IG% - Immature Granulocytes (promyelocytes, myelocytes and metamyelocytes) > 1% indicates that a LEFT SHIFT is Present. Performed By: #### L 501.080 #### [facility] [address] [place], [address] Lymphocytes/100 WBC (Bld) 31.2 % Normal 19-[address] [facility] Comment on above: Performed By: #### L 501.080 #### [facility] [address] [place], [address] MCH (RBC) [Entitic mass] 26.0 pg Low 27.0-32.[address] [facility] Comment on above: Performed By: #### L 501.080 #### [facility] [address] [place], [address] MCHC (RBC) [Mass/Vol] 31.8 g/dL Low 32-36 [facility] Comment on above: Performed By: #### L 501.080 #### [facility] [address] [place], [address] MCV (RBC) [Entitic vol] 81.7 fL Normal 80-94 [facility] Comment on above: Performed By: #### L [id number] #### [facility] [address] [place], [address] Monocytes/100 WBC (Bld) 7.5 % Normal 0-10 [facility] Comment on above: Performed By: #### L 501.080 #### [facility] [address] [place], [address] Neutrophils/100 WBC (Bld) 57.0 % Normal 47-[address] [facility] Comment on above: Performed By: #### L 501.080 #### [facility] [address] [place], [address] Nucleated RBC (Bld) [#/Vol] 0 10*3/uL Normal 0-[address] [facility] Comment on above: Performed By: #### L 501.080 #### [facility] [address] [place], [address] Platelet mean volume (Bld) [Entitic vol] 10.5 fL Normal 6.2-12.[address] [facility] Comment on above: Performed By: #### L 501.080 #### [facility] [address] [place], [address] Platelets (Bld) [#/Vol] 393 10*3/uL Normal 150-[address] [facility] Comment on above: Performed By: #### L 501.080 #### [facility] [address] [place], [address] RBC (Bld) [#/Vol] 4.43 10*6/uL Low 4.6-6.2 [facility] Comment on above: Performed By: #### L 501.080 #### [facility] [address] [place], [address] RDW SD 48.7 fl High 35.1-43.[address] [facility] Comment on above: Performed By: #### L 501.080 #### [facility] [address] [place], [address] WBC (Bld) [#/Vol] 10.5 10*3/uL Normal 4.4-11.0 [facility] Comment on above: Performed By: #### L 501.080 #### [facility] [address] [place], [address] Carbon dioxide, total [Moles /volume] in Central venous bloodOrdered By: Lin Garcia on 06-16-2024 CO2 [Moles/Vol] 20.5 mmol/L Low 21.0-32.[address] [facility] Chloride assayOrdered By: Adilene Garcia on 06-16-2024 Chloride [Moles/Vol] 107 mmol/L 98-108 [facility] Comprehensive Metabolic Prof ilon 06-16-2024 Albumin [Mass/Vol] 3.7 g/dL Normal 3.4-4.8 [facility] Comment on above: Performed By: #### L 501.080 #### [facility] [address] [place], [address] Albumin/Globulin [Mass ratio] 1.2 {ratio} Normal 0.9-2.[address] [facility] Comment on above: Performed By: #### L 501.080 #### [facility] [address] [place], [address] ALK PHOS 40 U/L Normal 40-[address] [facility] Comment on above: Performed By: #### L 501.080 #### [facility] [address] [place], [address] ALT [Catalytic activity/Vol] 17 U/L Normal <=[address] [facility] Comment on above: Performed By: #### L 501.080 #### [facility] [address] [place], [address] AST [Catalytic activity/Vol] 28 U/L Normal <=[address] [facility] Comment on above: Performed By: #### L 501.080 #### [facility] [address] [place], [address] Bilirubin [Mass/Vol] 0.25 mg/dL Normal 0.00-1.30 [facility] Comment on above: Performed By: #### L 501.080 #### [facility] [address] [place], [address] BUN/CRE 12.3 RATIO Normal 10-[address] [facility] Comment on above: Performed By: #### L 501.080 #### [facility] [address] [place], [address] Calcium [Mass/Vol] 9.8 mg/dL Normal 7.6-11.0 [facility] Comment on above: Performed By: #### L 501.080 #### [facility] [address] [place], [address] Chloride [Moles/Vol] 107 mmol/L Normal 98-108 [facility] Comment on above: Performed By: #### L 501.080 #### [facility] [address] [place], [address] CO2 [Moles/Vol] 20.5 mmol/L Low 21.0-32.[address] [facility] Comment on above: Performed By: #### L 501.080 #### [facility] [address] [place], [address] Creatinine [Mass/Vol] 1.62 mg/dL High 0.70-1.20 [facility] Comment on above: Performed By: #### L 501.080 #### [facility] [address] [place], [address] ECRCL 39.76 ml/min Low 50-[address] [facility] Comment on above: Performed By: #### L 501.080 #### [facility] [address] [place], [address] GAP 12 Normal 5-[address] [facility] Comment on above: Performed By: #### L 501.080 #### [facility] [address] [place], [address] GFR/1.73 sq M.predicted among non-blacks MDRD (S/P/Bld) [Vol rate/Area] 41 mL/min/{1.73_m2} Low >[address] [facility] Comment on above: Result Comment: mL/m in/1.73m2 CKD-EPI Creatinine Equation (2020) Performed By: #### L 501.080 #### [facility] [address] [place], [address] Globulin (S) [Mass/Vol] 3.0 g/dL Normal 2.2-4.2 [facility] Comment on above: Performed By: #### L 501.080 #### [facility] [address] [place], [address] Glucose [Mass/Vol] 94 mg/dL Normal 70-99 [facility] Comment on above: Performed By: #### L 501.080 #### [facility] [address] [place], [address] Potassium [Moles/Vol] 4.3 mmol/L Normal 3.3-5.1 [facility] Comment on above: Performed By: #### L 501.080 #### [facility] [address] [place], [address] Sodium [Moles/Vol] 139 mmol/L Normal 133-145 [facility] Comment on above: Performed By: #### L [id number] #### [facility] [address] [place], [address] T PROT 6.7 g/dL Normal 5.9-8.[address] [facility] Comment on above: Performed By: #### L 501.080 #### [facility] [address] [place], [address] Urea nitrogen [Mass/Vol] 20 mg/dL High 4-[address] [facility] Comment on above: Performed By: #### L 501.080 #### [facility] [address] [place], [address] Emergency Department Summary on 06-16-2024 Emergency Department Summary [facility] Medical Records Department [address] [place] [address] Emergency Department Summary 06/16/24 MR#: [id number] Acct: [id number] Name: JUAN M RODRIGUEZ Rep #: [id number] : [id number] From: Lin BARR PCP: Dr. Taye Horan MD Status:DEP ER Location: ED HPI History of Present Illness Chief Complaint: Abd Pain Narrative Narrative: Patient presents today due to pain into his left groin he has had intermittently over the past week. He reports that the pain has gradually worsened and this evening he developed nausea, prompting him to come in to be seen. He has a remote history of kidney stones and reports that this feels similar. He denies history of diverticulitis. Previous abdominal surgeries include cholecystectomy and hernia repair. He does follow with Dr. Torres. He last had a bowel movement about 2 hours prior to arrival, he denies any stool changes. He denies fevers, chills, and urinary symptoms. PMH includes T2DM, HLD, GERD, and HTN. [facility] Medical History Wears glasses Cancer Smoker Insulin dependent diabetes mellitus Arthritis Prostate disease History of renal disease Diverticulosis First degree heart block COVID-19 Sepsis Hypomagnesemia History of colon polyps CKD (chronic kidney disease) Benign prostatic hyperplasia Anemia Acute pancreatitis Kidney stones Dyslipidemia Nausea Diarrhea GERD (gastroesophageal reflux disease) High cholesterol HTN (hypertension) Diabetes Home Medications ???Medication ???Instructions ???Recorded ???Last Taken ???Type aspirin 81 mg tablet,delayed 81 mg PO DAILY 05/17/20 10/10/23 H istory release ferrous sulfate 325 mg (65 mg 325 mg PO DAILY@0800 05/17/20 Unkn own History iron) tablet glimepiride 1 mg tablet 1 mg PO BID 05/17/20 Unknown Histo ry insulin aspart U-100 100 unit/mL 6 unit SQ TID 05/17/20 Unknown His tory subcutaneous solution insulin glargine 100 unit/mL (3 30 unit SQ QHS 05/17/20 Unknown Hi story mL) subcutaneous pen lovastatin 20 mg tablet 20 mg PO DAILY 05/17/20 Unknown Hi story metformin 1,000 mg tablet 1,000 mg PO BID 05/17/20 Unknown H istory omeprazole 20 mg tablet,delayed 40 mg PO DAILY 05/17/20 Unknown Hi story release amlodipine 5 mg tablet 5 mg PO DAILY 06/17/21 Unknown His tory fenofibrate micronized 200 mg 200 mg PO DAILY 10/17/23 Unknown H istory capsule ciprofloxacin HCl 500 mg tablet 500 mg PO BID #6 tabs 10/20/23 Unk nown Rx (Cipro) albuterol sulfate 90 mcg/actuation 2 puff inhalation Q4-6H PRN 10/0 05/13 Unknown Rx aerosol inhaler shortness of breath or wheezing #8.5 grams dexamethasone 6 mg tablet 6 mg PO DAILY #5 tabs 12/20/23 Unk nown Rx insulin aspart U-100 100 unit/mL subcut 06/16/24 Unknown History (3 mL) subcutaneous pen (Novolog FlexPen U-100 Insulin aspart) Allergy/AdvReac Type Severity Reaction Status Date / Time lisinopril Allergy Angioedema Verified 06/16/24 17:44 Penicillins Allergy Rash Verified 06/16/24 17:44 hydromorphone (From Dilaudid) AdvReac Severe Other Verified 06/16/24 17:44 Family History Father Hypertension TIA (transient ischemic attack) Sister CAD (coronary artery disease) Diabetes COPD (chronic obstructive pulmonary disease) Lung cancer Surgical History History of transurethral resection of prostate History of urethral stent ( 10/09/23) H/O inguinal hernia repair History of cholecystectomy Social History household members: spouse housing: house Smoking Status: Current every day smoker tobacco type: cigars alcohol intake: current alcohol intake frequency: 0-2 drinks per day substance use type: does not use ROS ROS ED Constitutional Constitutional ED: Denies chills or fever(s) Cardiovascular Cardiovascular: Denies chest pain Respiratory/Chest Respiratory/Chest: Denies dyspnea Gastrointestinal Gastrointestinal: Reports abdominal pain; Denies constipation, diarrhea, melena, nausea, rectal bleeding or vomiting Genitourinary Genitourinary ED: Denies dysuria, hematuria or urinary urgency Musculoskeletal Musculoskeletal: Reports other Details: Chronic intermittent lower back pain that is not any worse today. Integumentary Denies rash Neurologic Neurologic: Denies weakness EXAM Physical Exam Const Vital Signs: 06/16/24 17:44 06/16/24 19:45 Temperature 96.4 F L Temperature Source Temporal Pulse Rate 79 75 Respiratory Rate 16 15 Blood Pressure 147/60 H 140/85 H Blood Pressure Mean 89 103 Pulse Ox 98 94 Ox (more content not included)... Normal [facility] Eosinophil percentageOrdered By: Lin Garcia on 03-30-2025 Eosinophils/100 WBC (Bld) 3.2 % 0-[address] [facility] Epithelial cells.squamous LM Ql (Urine sed)Ordered By: Lin Garcia on 06-16-2024 Epithelial cells.squamous LM.HPF (Urine sed) [#/Area] 0 /[HPF] 0-[address] [facility] Erythrocyte distribution wid th ratioOrdered By: Lin Garcia on 06-16-2024 Erythrocyte distribution width (RBC) [Ratio] 16.4 % High 11.6-14.[address] [facility] Erythrocyte distribution wid th standard deviationOrdered By: Lin Garcia on 06-16-2024 Erythrocyte distribution width (RBC) [Entitic vol] 48.7 fL High 35.1-43.[address] [facility] Estimation of creatinine armida aranceOrdered By: Lin Garcia on 06-16-2024 Estimated Creatinine Clearance Calc 39.76 ml/min Low 50-[address] [facility] GFR/1.73 sq M.predicted tuan g non-blacks MDRD (S/P/Bld) [Vol rate/Area]Ordered By: Lin Garcia on 06-16-2024 Estimated GFR (MDRD) Non-Af Amer 41 Low >[address] [facility] Comment on above: mL/min/1.73m2 CKD-EP I Creatinine Equation (2020) Glucose Ql (U)Ordered By: Adilene Garcia on 06-16-2024 Urine Glucose (UA) Normal mg/dl Normal [facility] Hematocrit Auto (Bld) [Volum e fraction]Ordered By: Lin Garcia on 06-16-2024 Hematocrit (Bld) [Volume fraction] 36.2 % Low 40-[address] [facility] Hemoglobin measurementOrdere d By: Lin Garcia on 06-16-2024 Hemoglobin (Bld) [Mass/Vol] 11.5 g/dL Low 13.0-16.[address] [facility] Immature granulocytes/100 WB C Auto (Bld)Ordered By: Lin Garcia on 06-16-2024 Immature granulocytes/100 WBC (Bld) 0.700 % 0.0-0.[address] [facility] Comment on above: IG% - Immature Granu locytes (promyelocytes, myelocytes and metamyelocytes) > 1% indicates that a LEFT SHIFT is Present. Ketones Test strip Ql (U)Ord ered By: Lin Garcia on 06-16-2024 Ketones Ql (U) Negative Negative [facility] - Chemistry and C hemistry - challengeOrdered By: Lin Garcia on 06-16-2024 AST [Catalytic activity/Vol] 28 U/L <[address] [facility] Lipaseon 06-16-2024 Lipase [Catalytic activity/Vol] 24 U/L Normal 13-[address] [facility] Comment on above: Result Comment: Mao mitchell note: LIPASE revised reference range effective 22. New Lipase methodology. Expected to produce lower values than the previous assay method. NEW Reference Range: 13 - 75 U/L Performed By: #### L 501.080 #### [facility] [address] [place], [address] Lipase measurementOrdered By : Lin Garcia on 06-16-2024 Lipase [Catalytic activity/Vol] 24 U/L 13-[address] [facility] Comment on above: Please note:LIPASE r evised reference range effective 22. New Lipase methodology. Expected to produce lower values than the previous assay method. NEW Reference Range: 13 - 75 U/L Lymphocytes Auto (Unsp spec) [#/Vol]Ordered By: Lin Garcia on 06-16-2024 Lymphocytes (Bld) [#/Vol] 3.26 10*3/uL 0.83-4.[address] [facility] Lymphocytes/100 WBC Auto (Un sp spec)Ordered By: Lin Garcia on 06-16-2024 Lymphocytes/100 WBC (Bld) 31.2 % 19-[address] [facility] MCV (mean corpuscular volume ) determinationOrdered By: Lin Garcia on 06-16-2024 MCV (RBC) [Entitic vol] 81.7 fL 80-94 [facility] Mean corpuscular hemoglobin (MCH) determinationOrdered By: Lin Garcia on 06-16-2024 MCH (RBC) [Entitic mass] 26.0 pg Low 27.0-32.[address] [facility] Mean corpuscular hemoglobin concentration (MCHC) determinationOrdered By: Lin Garcia on 06-16-2024 MCHC (RBC) [Mass/Vol] 31.8 g/dL Low 32-36 [facility] Mean platelet volume determi nationOrdered By: Lin Garcia on 06-16-2024 Platelet mean volume (Bld) [Entitic vol] 10.5 fL 6.2-12.[address] [facility] Microscopic analysis of urin e for red blood cells (RBC)Ordered By: Lin Garcia on 06-16-2024 Urine RBC 10-25 SEEN /hpf 0-[address] [facility] Monocyte percentageOrdered B y: Lin Garcia on 06-16-2024 Monocytes/100 WBC (Bld) 7.5 % 0-10 [facility] Mucus LM Ql (Urine sed)Order ed By: Lin Garcia on 06-16-2024 Mucus Ql (Urine sed) 0 SEEN /hpf [facility] Neutrophil percentageOrdered By: Lin Garcia on 06-16-2024 Neutrophils/100 WBC (Bld) 57.0 % 47-[address] [facility] Nitrite Test strip Ql (U)Ord ered By: Lin Garcia on 06-16-2024 Nitrite Ql (U) Negative Negative [facility] Nucleated red blood cell per centageOrdered By: Lin Garcia on 06-16-2024 Nucleated RBC/100 WBC (Bld) [Ratio] 0 % 0-[address] [facility] Platelet countOrdered By: Adilene Garcia on 06-16-2024 Platelets (Bld) [#/Vol] 393 10*3/uL 150-[address] [facility] Potassium (Unsp spec) [Mass/ Vol]Ordered By: Lin Garcia on 06-16-2024 Potassium [Moles/Vol] 4.3 mmol/L 3.3-5.1 [facility] Protein Test strip Ql (U)Ord ered By: Lin Garcia on 06-16-2024 Protein Ql (U) 15 mg/dl High Negative [facility] RBC Auto (Bld) [#/Vol]Ordere d By: Lin Garcia on 06-16-2024 RBC (Bld) [#/Vol] 4.43 10*6/uL Low 4.6-6.2 [facility] Serum creatinine measurement (mass/volume)Ordered By: Lin Garcia on 06-16-2024 Creatinine [Mass/Vol] 1.62 mg/dL High 0.70-1.20 [facility] Serum globulin measurementOr dered By: Lin Garcia on 06-16-2024 Globulin (S) [Mass/Vol] 3.0 g/dL 2.2-4.2 [facility] Serum glucose measurement (m ass/volume)Ordered By: Lin Garcia on 06-16-2024 Glucose [Mass/Vol] 94 mg/dL 70-99 [facility] Serum or plasma alanine browning otransferase (ALT) measurementOrdered By: Lin Garcia on 06-16-2024 ALT [Catalytic activity/Vol] 17 U/L <[address] [facility] Serum or plasma albumin alisa urement (mass/volume)Ordered By: Lin Garcia on 06-16-2024 Albumin [Mass/Vol] 3.7 g/dL 3.4-4.8 [facility] Serum or plasma albumin/glob ulin mass ratioOrdered By: Lin Garcia on 06-16-2024 Albumin/Globulin [Mass ratio] 1.2 {ratio} 0.9-2.4 [facility] [facility] Serum or plasma alkaline rebecca sphatase measurementOrdered By: Lin Garcia on 06-16-2024 ALP [Catalytic activity/Vol] 40 U/L 40-[address] [facility] Serum or plasma calcium alisa urement (mass/volume)Ordered By: Lin Garcia on 06-16-2024 Calcium [Mass/Vol] 9.8 mg/dL 7.6-11.0 [facility] Serum or plasma urea nitroge n measurement (mass/volume)Ordered By: Lin Garcia on 06-16-2024 Urea nitrogen [Mass/Vol] 20 mg/dL High 4-[address] [facility] Sodium levelOrdered By: Joseph Garcia on 06-16-2024 Sodium [Moles/Vol] 139 mmol/L 133-145 [facility] Total proteinOrdered By: Blu Garcia on 06-16-2024 Protein [Mass/Vol] 6.7 g/dL 5.9-8.4 [facility] Urinalysis, Completeon 06-16 RBC 10-25 SEEN Normal 0-[address] [facility] Comment on above: Order Comment: CLEAN CATCH Performed By: #### L [id number] #### [facility] [address] [place], [address] BACTERIA 0 SEEN Normal None Seen [facility] Comment on above: Order Comment: CLEAN CATCH Performed By: #### L [id number] #### [facility] [address] [place], [address] EPI,SQUAMOUS 0 SEEN Normal 0-[address] [facility] Comment on above: Order Comment: CLEAN CATCH Performed By: #### L [id number] #### [facility] [address] [place], [address] Mucus Ql (Urine sed) [address] [facility] Comment on above: Order Comment: CLEAN CATCH Performed By: #### L [id number] #### [facility] [address] [place], [address] WBC 0 SEEN Normal 0-[address] [facility] Comment on above: Order Comment: CLEAN CATCH Performed By: #### L [id number] #### [facility] [address] [place], [address] Urine blood detectionOrdered By: Lin Garcia on 06-16-2024 Urine Occult Blood 50 /ul High Negative [facility] Urine clarityOrdered By: Blu Garcia on 06-16-2024 Clarity (U) Clear Clear [facility] Urine color determinationOrd ered By: Lin Garcia on 06-16-2024 Color (U) Yellow Yellow [facility] Urine leukocyte esterase det ection by dipstickOrdered By: Lin Garcia on 06-16-2024 Leukocyte esterase Test strip Ql (U) Negative Negative [facility] Urine pHOrdered By: Jordan Garcia on 06-16-2024 pH (U) 5.0 [pH] 5.0 - 8.[address] [facility] Urine sediment bacteria coun t by microscopy (number/high power field)Ordered By: Lin Garcia on 06-16-2024 Bacteria LM.HPF (Urine sed) [#/Area] 0 /[HPF] None Seen [facility] Urine specific gravity measu rementOrdered By: Lin Garcia on 06-16-2024 Specific gravity (U) [Rel density] 1.020 1.002-1.[address] [facility] Urobilinogen Ql (U)Ordered B y: Lin Garcia on 06-16-2024 Urine Urobilinogen Normal mg/dl Normal [facility] White blood cell (WBC) count Ordered By: Lin Garcia on 06-16-2024 WBC (Bld) [#/Vol] 10.5 10*3/uL 4.4-11.0 [facility] White blood cell countOrdere d By: Lin Garcia on 06-16-2024 Urine WBC 0 SEEN /hpf 0-[address] [facility] CNPNon 04-01-2024 [facility]phone [facility] JUAN M RODRIGUEZ ([id number]) 1935 [facility] Date Time Provider Department 04/01/24 SHARIF PAYAN [facility] During your visit today, we recorded the following information about you: Sharif Payan MA 04/01/2024 10:57 AM Signed Patient stopped by office and indicated that he received notification from his insurance they will no longer be covering the Basaglar insulin. Alternative medication covered are: Insulin Glargine-YFGN pen. Per paperwork. MAMTA Barton Jeffrey A, MD 04/01/2024 3:53 PM Signed [facility] The following approved medication requests have been transmitted electronically. Requested Prescriptions Signed Prescriptions Disp Refills insulin glargine-yfgn (SEMGLEE) 100 unit/mL (3 mL) insulin pen 5 Each 5 Sig: Inject 25 Units subcutaneously daily at bedtime. Authorizing Provider: TAYE HORAN MD Hambel, Sherill A, LPN 04/02/2024 9:17 AM Signed Pt notified rx has been sent to pharmacy. Evangelista Fisher LPN Allergies As of Date: 04/01/2024 Noted Allergy Reaction DILAUDID (HYDROMORPHONE (BULK)) 09/03/2018 1 - Mental Status Change LISINOPRIL 12/24/2014 14 - Other: See Comments Comments: angioedema MAGNESIUM OXIDE 11/10/2021 14 - Other: See Comments Comments: Loose stools, leg and foot pain PENICILLINS 12/16/2002 16 - Unknown Date Reviewed: 01/15/2024 Reviewed by: Evangelista Fisher LPN - Fully Assessed Reason for Visit: Medication Problem [65] Order(s):insulin glargine-yfgn (SEMGLEE) 100 unit/mL (3 mL) insulin penInject 25 Units subcutaneously daily at bedtime.Disp: 5 EachRfl: 5 Prescriptions as of 04/02/2024 - insulin glargine-yfgn (SEMGLEE) 100 unit/mL (3 mL) insulin pen Inject 25 Units subcutaneously daily at bedtime. - omeprazole (PRILOSEC) 40 mg capsule Take 1 capsule by mouth daily before breakfast. 1/2 hr before meal. - glimepiride (AMARYL) 1 mg tablet Take 1 tablet by mouth two times a day. - albuterol HFA (VENTOLIN HFA) 90 mcg/actuation inhaler Inhale 2 Puffs as instructed every 4 hours as needed for wheezing/shortness of breath. - fenofibrate (LOFIBRA) 200 mg capsule Take 1 capsule by mouth daily before breakfast. - amLODIPine (NORVASC) 5 mg tablet Take 1 tablet by mouth once daily. one tab daily - Insulin [place], Disposable, (SURE COMFORT PEN NEEDLE) 32 gauge x 5/32 1 Each four times daily. - insulin aspart U-100 (NOVOLOG FLEXPEN U-100 INSULIN) 100 unit/mL (3 mL) Inject 6 Units subcutaneously three times a day before meals. - lovastatin (MEVACOR) 20 mg tablet Take 1 tablet by mouth daily at bedtime. - Lancets (MICROLET LANCET) 1 Each four times daily. Dx: Type 2 DM - Controlled E11.9 Insulin: Yes - metFORMIN (GLUCOPHAGE) 1,000 mg tablet Take 1 tablet by mouth two times a day with meals. - blood sugar diagnostic (CONTOUR TEST STRIPS) test strip Test blood sugar(s) 4 times daily. Dx: Type 2 DM - Controlled E11.9 Insulin: Yes - Magnesium Glycinate 100 mg tab Take 1 tablet by mouth every other day. - Cholecalciferol, Vitamin D3, 50 mcg (2,000 unit) cap Take 1 capsule by mouth. - ferrous sulfate 325 mg (65 mg iron) tablet Take 325 mg by mouth daily with breakfast. - aspirin, enteric coated (ASPIRIN, ENTERIC COATED) 81 mg EC tablet Take 1 tablet by mouth once daily. Problem List As Of Date 04/01/2024 Noted Resolved Type 2 diabetes mellitus with stage 3b chronic *09/03/2018 Dyslipidemia [E78.5] 09/03/2018 GERD without esophagitis [K21.9] 09/03/2018 Hypertensive chronic kidney disease with stage *09/03/2018 History of kidney stones [Z87.442] 09/03/2018 History of colonic polyps [Z86.0100] 09/03/2018 Smoker [F17.200] 09/03/2018 Benign prostatic hyperplasia with lower urinary*09/03/2018 Medicare annual wellness visit, subsequent [Z00*09/03/2018 Hypomagnesemia [E83.42] 01/23/2019 Diabetic eye exam (HCC) [Z01.00, E11.9] 05/07/2019 Stage 3b chronic kidney disease (HCC) [N18.32] 10/01/2019 Anemia of chronic disease [D63.8] 11/03/2019 Essential hypertension [I10] 09/03/2018 Medication management [Z79.899] 08/28/2020 History of COVID-19 [Z86.16] 03/23/[address] [Z78.9] 07/07/2021 Advance directive discussed with patient [Z71.8*07/07/2021 Diverticulosis [K57.90] 07/08/2022 Neck pain [M54.2] 07/08/2022 Diarrhea [R19.7] 07/08/2022 Nausea [R11.0] 07/08/2022 Prescriptions ordered this encounter Disp Refills Start End INSULIN GLARGINE-YFGN (U-100) 100 UN* 5 Ea* 5 04/01/2024 Cmt: Each=pen Route: SUBCUTANEOUS Sig: Inject 25 Units subcutaneously daily at bedtime. Medications Discontinued During This Encounter Prescriptions - insulin glargine (BASAGLAR KWIKPEN U-100 INSULIN) 100 unit/mL (3 mL) (Discontinued) Inject 25 Units subcutaneously daily at bedtime. Encounter Status:Closed by EVANGELISTA FISHER on 1 (more content not included)... Normal [facility] Chest PA and Lateralon 02-17 Chest PA and Lateral [facility] Imaging Services [address] [place] [address] Chest PA and Lateral MR#: [id number] Acct: [id number] Name: JUAN M RODRIGUEZ Nehal Rep #: [id number] : 1935 88 From: Taye Randolph MD PCP: Dr. Taye Horan MD Status: DEP ER Study: Chest PA and Lateral Date of Exam: 02/18/24 Exam# [id number] Ordering Dr: Chava Cao MD [id number] INDICATION: cough EXAMINATION/TECHNIQUE : X-RAY - XR Chest 2 Views COMPARISON: 10/24/2022. __ FINDINGS: LINES/DEVICES: None. LUNGS: No consolidation or evidence of an effusion. No evidence of edema or a pneumothorax. MEDIASTINUM AND CARDIOVASCULAR STRUCTURES: Cardiac silhouette is normal in size and contour. Mediastinum is unremarkable. BONES AND SOFT TISSUES: No acute abnormality. _ RAD/Chest PA and Lateral IMPRESSION: No evidence of cardiopulmonary disease. Electronically Signed: Taye Randolph DO at 7:42 EST , CC: Dr. Chava Cao MD; Dr. Taye Horan MD Material Assembler: Signed Normal [facility] Emergency Department Summary on 02-18-2024 Emergency Department Summary [facility] Medical Records Department [address] [place] [address] Emergency Department Summary 02/18/24 MR#: [id number] Acct: [id number] Name: JUAN M RODRIGUEZ Rep #: [id number] : 1935 88 From: Chava Cao MD PCP: Dr. Taye Horan MD Status:DEP ER Location: ED HPI HPI - URI History of Present Illness Chief Complaint: Cold Sx Informant: patient Narrative Narrative: 88-year-old male states he has been ill with a cough for an unknown period of time, a week or less he estimates, he states he has just been feeling poorly but no fevers, chills, dyspnea, chest pain, GI symptoms. Denied sore throat earache. No sinus pain or pressure or headaches. He states his has multiple myeloma and he has been worrying about mostly her and not himself since he has a persistent cough and is not feeling well he wants to make sure he does not have pneumonia. He had COVID about 3 weeks ago and recovered from that and does not think that is what he has here. He also had influenza and RSV vaccinations this year. ROS ROS ED Constitutional Constitutional ED: Reports fatigue; Denies body ache(s), chills or fever(s) Eyes Eyes: Denies change in vision or diplopia ENT ENT ED: Denies ear pain, rhinorrhea or sore throat Cardiovascular Cardiovascular: Denies chest pain or palpitations Respiratory/Chest Respiratory/Chest: Reports cough and other Details: Occasional/rare production of small amount of sputum, no blood ; Denies dyspnea Gastrointestinal Gastrointestinal: Denies abdominal pain, diarrhea, nausea or vomiting Genitourinary Genitourinary ED: Denies dysuria or hematuria Musculoskeletal Musculoskeletal: Denies back pain or neck pain Integumentary Denies abscess or rash Neurologic Neurologic: Denies headache(s), paresthesias or weakness Psychiatric Psychiatric: Denies anxiety or suicidal thoughts [facility] Medical History Wears glasses Cancer Smoker Insulin dependent diabetes mellitus Arthritis Prostate disease History of renal disease Diverticulosis First degree heart block COVID-19 Sepsis Hypomagnesemia History of colon polyps CKD (chronic kidney disease) Benign prostatic hyperplasia Anemia Acute pancreatitis Kidney stones Dyslipidemia Nausea Diarrhea GERD (gastroesophageal reflux disease) High cholesterol HTN (hypertension) Diabetes Home Medications ???Medication ???Instructions ???Recorded ???Last Taken ???Type aspirin 81 mg tablet,delayed 81 mg PO DAILY 05/17/20 10/10/23 History release ferrous sulfate 325 mg (65 mg 325 mg PO DAILY@0800 05/17/20 Unknown History iron) tablet glimepiride 1 mg tablet 1 mg PO BID 05/17/20 Unknown History insulin aspart U-100 100 unit/mL 6 unit SQ TID 05/17/20 Unknown History subcutaneous solution insulin glargine 100 unit/mL (3 30 unit SQ QHS 05/17/20 Unknown History mL) subcutaneous pen lovastatin 20 mg tablet 20 mg PO DAILY 05/17/20 Unknown History metformin 1,000 mg tablet 1,000 mg PO BID 05/17/20 Unknown History omeprazole 20 mg tablet,delayed 40 mg PO DAILY 05/17/20 Unknown History release amlodipine 5 mg tablet 5 mg PO DAILY 06/17/21 Unknown History fenofibrate micronized 200 mg 200 mg PO DAILY 10/17/23 Unknown History capsule ciprofloxacin HCl 500 mg tablet 500 mg PO BID #6 tabs 10/20/23 Unknown Rx (Cipro) albuterol sulfate 90 mcg/actuation 2 puff inhalation Q4-6H PRN 12/20/23 Unknown Rx aerosol inhaler shortness of breath or wheezing #8.5 grams dexamethasone 6 mg tablet 6 mg PO DAILY #5 tabs 12/20/23 Unknown Rx Allergy/AdvReac Type Severity Reaction Status Date / Time lisinopril Allergy Angioedema Verified 02/18/24 03:54 Penicillins Allergy Rash Verified 02/18/24 03:54 hydromorphone (From Dilaudid) AdvReac Severe Other Verified 02/18/24 03:54 Family History Father Hypertension TIA (transient ischemic attack) Sister CAD (coronary artery disease) Diabetes COPD (chronic obstructive pulmonary disease) Lung cancer Surgical History History of transurethral resection of prostate History of urethral stent ( 10/09/23) H/O inguinal hernia repair History of cholecystectomy Social History household members: spouse housing: house Smoking Status: Current every day smoker tobacco type: cigars alcohol intake: current alcohol intake frequency: 0-2 drinks per day substance use type: does not use EXAM Physical Exam Const Vital Signs: 02/18/24 03:54 02/18/24 03:57 02/18/24 03:58 Temperature 97.9 F 97.9 F Temperature Source Oral Oral Pulse Rate 99 83 Respiratory (more content not included)... Normal [facility] 01-17-2024 [facility] JUAN M RODRIGUEZ ([id number]) 1935 [facility] Date Time Provider Department 01/17/24 JUDI RICE [facility] During your visit today, we recorded the following information about you: Judi Rice PA-C 01/17/2024 10:15 AM Signed Xray negative. Continue the albuterol and follow up if not improving. ROWDY Weiss Amanda, HÉCTOR 01/17/2024 10:26 AM Signed Called and left a voicemail for the Patient to call back and ask for a nurse to receive the providers message. HÉCTOR Pool Stephanie, RN 01/17/2024 11:26 AM Signed Patient notified of results and provider's instructions. Patient verbalizes understanding. Martha Naranjo RN Allergies As of Date: 01/17/2024 Noted Allergy Reaction DILAUDID (HYDROMORPHONE (BULK)) 09/03/2018 1 - Mental Status Change LISINOPRIL 12/24/2014 14 - Other: See Comments Comments: angioedema MAGNESIUM OXIDE 11/10/2021 14 - Other: See Comments Comments: Loose stools, leg and foot pain PENICILLINS 12/16/2002 16 - Unknown Date Reviewed: 01/15/2024 Reviewed by: Evangelista Fisher LPN - Fully Assessed Reason for Visit: Results [95] Prescriptions as of 01/17/2024 - fenofibrate (LOFIBRA) 200 mg capsule Take 1 capsule by mouth daily before breakfast. - amLODIPine (NORVASC) 5 mg tablet Take 1 tablet by mouth once daily. one tab daily - Insulin [place], Disposable, (SURE COMFORT PEN NEEDLE) 32 gauge x 5/32 1 Each four times daily. - insulin aspart U-100 (NOVOLOG FLEXPEN U-100 INSULIN) 100 unit/mL (3 mL) Inject 6 Units subcutaneously three times a day before meals. - lovastatin (MEVACOR) 20 mg tablet Take 1 tablet by mouth daily at bedtime. - Lancets (MICROLET LANCET) 1 Each four times daily. Dx: Type 2 DM - Controlled E11.9 Insulin: Yes - metFORMIN (GLUCOPHAGE) 1,000 mg tablet Take 1 tablet by mouth two times a day with meals. - omeprazole (PRILOSEC) 40 mg capsule Take 1 capsule by mouth daily before breakfast. 1/2 hr before meal. - blood sugar diagnostic (CONTOUR TEST STRIPS) test strip Test blood sugar(s) 4 times daily. Dx: Type 2 DM - Controlled E11.9 Insulin: Yes - glimepiride (AMARYL) 1 mg tablet Take 1 tablet by mouth two times a day. - insulin glargine (BASAGLAR KWIKPEN U-100 INSULIN) 100 unit/mL (3 mL) Inject 25 Units subcutaneously daily at bedtime. - Magnesium Glycinate 100 mg tab Take 1 tablet by mouth every other day. - Cholecalciferol, Vitamin D3, 50 mcg (2,000 unit) cap Take 1 capsule by mouth. - ferrous sulfate 325 mg (65 mg iron) tablet Take 325 mg by mouth daily with breakfast. - aspirin, enteric coated (ASPIRIN, ENTERIC COATED) 81 mg EC tablet Take 1 tablet by mouth once daily. 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 chronic *09/03/2018 Dyslipidemia [E78.5] 09/03/2018 GERD without esophagitis [K21.9] 09/03/2018 Hypertensive chronic kidney disease with stage *09/03/2018 History of kidney stones [Z87.442] 09/03/2018 History of colonic polyps [Z86.0100] 09/03/2018 Smoker [F17.200] 09/03/2018 Benign prostatic hyperplasia with lower urinary*09/03/2018 Medicare annual wellness visit, subsequent [Z00*09/03/2018 Hypomagnesemia [E83.42] 01/23/2019 Diabetic eye exam (HCC) [Z01.00, E11.9] 05/07/2019 Stage 3b chronic kidney disease (HCC) [N18.32] 10/01/2019 Anemia of chronic disease [D63.8] 11/03/2019 Essential hypertension [I10] 09/03/2018 Medication management [Z79.899] 08/28/2020 History of COVID-19 [Z86.16] 03/23/[address] [Z78.9] 07/07/2021 Advance directive discussed with patient [Z71.8*07/07/2021 Diverticulosis [K57.90] 07/08/2022 Neck pain [M54.2] 07/08/2022 Diarrhea [R19.7] 07/08/2022 Nausea [R11.0] 07/08/2022 Encounter Status:Closed by MARTHA NARANJO on 01/17/24 [facility] 01-15-2024 CNOV Office Visit ([facility] ) JUAN M RODRIGUEZ ([id number]) 1935 M [facility] Date Time Provider Department 01/15/24 11:40 AM JUDI RICE During your visit today, we recorded the following information about you: Temperature Pulse Respiration Blood pressure 97.6 degrees 99/minute 18/minute 108/60 Weight 99.3 kg Judi Rice PA-C 01/15/2024 12:33 PM Signed Chief Complaint Patient presents with: 6 Month Exam HPI Juan M Rodriguez is a 88 year old male who presents here today for Chronic Medical Conditions.. Patient with hx of HTN, Smoker, GERD, BPH, CKD, DM2, and those as below. No concerns today. Had covid earlier this month. Past medical history, appointments, medications, allergies reviewed. Previous Medical History PAST MEDICAL HISTORY Diagnosis Date Acute pancreatitis Advance directive discussed with patient 07/07/2021 Discussed 06/2021 Anemia of chronic disease 11/03/2019 Benign prostatic hyperplasia with lower urinary tract symptoms 09/03/2018 COVID-19 virus infection 03/23/2021 03/19/2021 Diabetic eye exam (HCC) 05/07/2019 Last done: 04/30/2019 Diarrhea 07/08/2022 Consult Gastro: Dr. Sainz patient cancelled appt on 08/31/2022 and did not reschedule. Saw gastro in [place] Diverticulosis 07/08/2022 Dyslipidemia 09/03/2018 Essential hypertension 09/03/2018 GERD without esophagitis 09/03/2018 History of colonic polyps 09/03/2018 Last colonoscopy 08/2017: Needs repeat 3 yrs History of COVID-19 03/23/2021 03/19/2021 History of kidney stones 09/03/2018 Hypertensive chronic kidney disease with stage 1 through stage 4 chronic kidney disease, or unspecified chronic kidney disease 09/03/2018 Hypomagnesemia 01/23/[address] 07/07/2021 DPA: [place] () Medicare annual wellness visit, subsequent 09/03/2018 Medicare Part B: 12/18/2001 Last done 09/03/2018 Nausea 07/08/2022 Consult Gastro: Dr. Sainz Portal hypertension (HCC) Sepsis (HCC) 2016 Smoker 09/03/2018 Started at the age of 31 up to 1 cigar a day. Stage 3b chronic kidney disease (HCC) 10/01/2019 Type 2 diabetes mellitus with stage 3b chronic kidney disease, with long-term current use of insulin (HCC) 09/03/2018 Previous Surgical History PAST SURGICAL HISTORY Procedure Laterality Date CHOLECYSTECTOMY HX 2013 COLONOSCOPY GEN ANES 02/20/2017 COLONOSCOPY SCREENING 06/21/2021 EGD EUS 06/23/2020 PAST SURGICAL HISTORY OF 2017 Left inguinal PAST SURGICAL HISTORY OF 2016 bilatreral cataracts Family History FAMILY HISTORY Problem Relation Age of Onset Hypertension Father Stroke Father Coronary Artery Disease Sister Diabetes Sister COPD Sister Cancer Sister Lung Alzheimer's Disease No Family History Colon Cancer No Family History Prostate Cancer No Family History Breast Cancer No Family History Ovarian cancer No Family History Uterine Cancer No Family History Kidney Disease No Family History Seizures No Family History Thyroid No Family History Patient Allergies ALLERGIES Allergen Reactions Dilaudid [[employer]* Mental Status Change Lisinopril Other: See Comments angioedema Magnesium Oxide Other: See Comments Loose stools, leg and foot pain Penicillins Unknown Current Medications Current Outpatient Medications on File Prior to Visit Medication Sig Insulin [place], Disposable, (SURE COMFORT PEN NEEDLE) 32 gauge x 5/32 1 Each four times daily. insulin aspart U-100 (NOVOLOG FLEXPEN U-100 INSULIN) 100 unit/mL (3 mL) Inject 6 Units subcutaneously three times a day before meals. lovastatin (MEVACOR) 20 mg tablet Take 1 tablet by mouth daily at bedtime. Lancets (MICROLET LANCET) 1 Each four times daily. Dx: Type 2 DM - Controlled E11.9 Insulin: Yes metFORMIN (GLUCOPHAGE) 1,000 mg tablet Take 1 tablet by mouth two times a day with meals. omeprazole (PRILOSEC) 40 mg capsule Take 1 capsule by mouth daily before breakfast. 1/2 hr before meal. blood sugar diagnostic (CONTOUR TEST STRIPS) test strip Test blood sugar(s) 4 times daily. Dx: Type 2 DM - Controlled E11.9 Insulin: Yes glimepiride (AMARYL) 1 mg tablet Take 1 tablet by mouth two times a day. amLODIPine (NORVASC) 5 mg tablet Take 1 tablet by mouth once daily. one tab daily fenofibrate (LOFIBRA) 200 mg capsule Take 1 capsule by mouth daily before breakfast. insulin glargine (BASAGLAR KWIKPEN U-100 INSULIN) 100 unit/mL (3 mL) Inject 25 Units subcutaneously daily at bedtime. Cholecalciferol, Vitamin D3, 50 mcg (2,000 unit) cap Take 1 capsule by mouth. ferrous sulfate 325 mg (65 mg iron) tablet Take 325 mg by mouth daily with breakfast. aspirin, enteric coated (ASPIRIN, ENTERIC COATED) 81 mg EC tablet Take 1 tablet by mouth once daily. Magnesium Glycinate 100 mg tab Take 1 tablet by mouth every other day. (Patient not taking: Reported on 01/15/2024) No current facility-admin (more content not included)... Normal [facility] XR CHEST 2V FRONTAL/LATon XR CHEST 2V FRONTAL/LAT * * *Final Repor t* * * DATE OF EXAM: Jan 15 2024 12:39PM WOX [id number] - XR CHEST 2V FRONTAL/LAT / PROCEDURE REASON: multiple diagnoses * * * * Physician Interpretation * * * * EXAMINATION: CHEST RADIOGRAPH (2 VIEW FRONTAL and LATERAL) CLINICAL HISTORY: COVID-19 SOB (shortness of breath) MQ: [id number] EXAM DATE/TIME: 01/15/2024 12:39 PM COMPARISON: No relevant prior studies available. RESULT: Lines, tubes, and devices: None. Lungs and pleura: No consolidation. No lung mass. No pleural effusion. No pneumothorax. Cardiomediastinal silhouette: Normal cardiomediastinal silhouette. Bones and soft tissues: Unremarkable. IMPRESSION: No acute radiographic abnormality. Material Assembler: KAMINI Transcribe Date/Time: Jan 16 2024 4:06P Dictated by : TAMIR CLARK MD This examination was interpreted and the report reviewed and electronically signed by: TAMIR CLARK MD on Jan 16 2024 4:06PM EST [id number] Normal [facility] Basic metabolic 2000 panelon 01-09-2024 Anion gap [Moles/Vol] 13 mmol/L Normal 8-15 [facility] Comment on above: Order Comment: Speci men Type: BLOOD SPECIMENOrdering Facility: [facility] Address: [address] [place], [place] [id number] Performed By: #### 2 [id number] ####[facility] [id number] [place] [address] [place] Calcium [Mass/Vol] 10.1 mg/dL Normal 8.5-10.[address] [facility] Comment on above: Order Comment: Speci men Type: BLOOD SPECIMENOrdering Facility: [facility] [facility] Address: [address] [place] [address] Performed By: #### 2 4321-2 ####[facility] RIVERSIDEWNCLIA [id number] [place] [address] [place] Chloride [Moles/Vol] 104 mmol/L Normal 98-107 [facility] Comment on above: Order Comment: Speci men Type: BLOOD SPECIMENOrdering Facility: [facility] Address: [address] [place] [address] Performed By: #### 2 4321-2 ####[facility]ITALNCLIA [id number] [place] [address] [place] CO2 [Moles/Vol] 23 mmol/L Normal 22-30 [facility] Comment on above: Order Comment: Speci men Type: BLOOD SPECIMENOrdering Facility: [facility] Address: [address] [place] [address] Performed By: #### 2 4321-2 ####[facility]PITALA [id number] [place] [address] [place] Creatinine [Mass/Vol] 1.49 mg/dL High 0.73-1.22 [facility] Comment on above: Order Comment: Speci men Type: BLOOD SPECIMENOrdering Facility: [facility] Address: [address] [place] [address] Performed By: #### 2 4321-2 ####[facility]ITALNCLIA [id number] [place] [address] [place] Creatinine and Glomerular filtration rate.predicted panel (S/P/Bld) 45 mL/min/1.73m??? Low >=60 [facility] Comment on above: Order Comment: Speci men Type: BLOOD SPECIMENOrdering Facility: [facility] Address: [address] [id number] Result Comment: Prema mated Glomerular Filtration Rate (eGFR) is calculated using the 2020 CKD-EPI creatinine equation. This equation utilizes serum creatinine, sex, and age as parameters. The creatinine assay has traceable calibration to isotope dilution-mass spectrometry. Refer to KDIGO guidelines for clinical interpretation. In patients with unstable renal function, e.g. those with acute kidney injury, the eGFR may not accurately reflect actual GFR. Performed By: #### 2 4321-2 ####[facility] [id number] [place] [address] [place] Glucose [Mass/Vol] 140 mg/dL High 74-[address] [facility] Comment on above: Order Comment: Speci men Type: BLOOD SPECIMENOrdering Facility: [facility] Address: [address] [place] [address] Result Comment: The [place] Diabetes Association (ADA) provides guidance for cutoff values for fasting glucose and random glucose. The ADA defines fasting as no caloric intake for at least 8 hours. Fasting plasma glucose results between 100 to 125 mg/dL indicate increased risk for diabetes (prediabetes). Fasting plasma glucose results greater than or equal to 126 mg/dL meet the criteria for diagnosis of diabetes. In the absence of unequivocal hyperglycemia, results should be confirmed by repeat testing. In a patient with classic symptoms of hyperglycemia or hyperglycemic crisis, random plasma glucose results greater than or equal to 200 mg/dL meet the criteria for diagnosis of diabetes. Reference: Standards of Medical Care in Diabetes 2016, [place] Diabetes Association. Diabetes Care. 2016.39(Suppl 1). Performed By: #### 2 4321-2 ####[facility]ITALNCLI [id number] [place] [address] [place] Potassium [Moles/Vol] 4.4 mmol/L Normal 3.7-5.1 [facility] Comment on above: Order Comment: Luciana men Type: BLOOD SPECIMENOrdering Facility: [facility] Address: [address] [id number] Performed By: #### 2 4321-2 ####[facility] MILLANASTASIIAWNCLIA [id number] [place] [address] [place] Sodium [Moles/Vol] 140 mmol/L Normal 136-[address] [facility] Comment on above: Order Comment: Speci men Type: BLOOD SPECIMENOrdering Facility: [facility] Address: [address] [place] [address] Performed By: #### 2 4321-2 ####[facility] RIVERSIDEWNCLIA [id number] [place] [address] [place] Urea nitrogen [Mass/Vol] 18 mg/dL Normal 9-24 [facility] Comment on above: Order Comment: Speci men Type: BLOOD SPECIMENOrdering Facility: [facility] Address: [address] [place] [address] Performed By: #### 2 4321-2 ####[facility] H[facility]PITALJUSTINOLIA [id number] [place] [address] [place] CBC W Auto Differential pane l (Bld)on 01-09-2024 Basophils (Bld) [#/Vol] 0.04 10*3/uL Normal <0.11 [facility] Comment on above: Order Comment: Speci men Type: BLOOD SPECIMENOrdering Facility: [facility] Address: [address] [place] [address] Performed By: #### 5 7021-8 ####[facility]ITALJUSTINOLIA [id number] [place] [address] [place] Basophils/100 WBC (Bld) 0.4 % Normal C [facility] Comment on above: Order Comment: Speci men Type: BLOOD SPECIMENOrdering Facility: [facility] Address: [address] [place] [address] Performed By: #### 5 7021-8 ####[facility]ITALNCLIA [id number] [place] [address] [place] Differential cell count method Nom (Bld) Auto Normal [facility] Comment on above: Order Comment: Speci men Type: BLOOD SPECIMENOrdering Facility: [facility] Address: [address] [place] [address] Performed By: #### 5 7021-8 ####[facility]ITALNCUINTA[facility] [id number] [place] [address] [place] Eosinophils (Bld) [#/Vol] 0.21 10*3/uL Normal <0.46 [facility] Comment on above: Order Comment: Speci men Type: BLOOD SPECIMENOrdering Facility: [facility] Address: [address] [place] [address] Performed By: #### 5 7021-8 ####[facility] [id number] [place] [address] [place] Eosinophils/100 WBC (Bld) 2.0 % Normal [facility] Comment on above: Order Comment: Speci men Type: BLOOD SPECIMENOrdering Facility: [facility] Address: [address] [place] [address] Performed By: #### 5 7021-8 ####[facility]ITALNCUINTA[facility] [id number] [place] [address] [place] Erythrocyte distribution width (RBC) [Ratio] 16.3 % High 11.5-15.0 [facility] Comment on above: Order Comment: Speci men Type: BLOOD SPECIMENOrdering Facility: [facility] Address: [address] [place] [address] Performed By: #### 5 7021-8 ####[facility] [id number] [place] [address] [place] Hematocrit (Bld) [Volume fraction] 37.0 % Low 39.0-51.0 [facility] Comment on above: Order Comment: Speci men Type: BLOOD SPECIMENOrdering Facility: [facility] Address: [address] [place] [address] Performed By: #### 5 7021-8 ####[facility] MEADOWSMURIEL [id number] [place] [address] [place] Hemoglobin (Bld) [Mass/Vol] 11.6 g/dL Low 13.0-17.0 [facility] Comment on above: Order Comment: Speci men Type: BLOOD SPECIMENOrdering Facility: [facility] Address: [address] [place] [address] Performed By: #### 5 7021-8 ####[facility] [id number] [place] [address] [place] Immature granulocytes (Bld) [#/Vol] 0.06 10*3/uL Normal <0.10 [facility] Comment on above: Order Comment: Speci men Type: BLOOD SPECIMENOrdering Facility: [facility] Address: [address] [place] [address] Performed By: #### 5 7021-8 ####[facility] HOSPITALAndrew [id number] [place] [address] [place] Immature granulocytes/100 WBC (Bld) 0.6 % Normal [facility] Comment on above: Order Comment: Speci men Type: BLOOD SPECIMENOrdering Facility: [facility] Address: [address] [place] [address] Performed By: #### 5 7021-8 ####[facility] [id number] [place] [address] [place] Lymphocytes (Bld) [#/Vol] 2.72 10*3/uL Normal 1.00-4.00 [facility] Comment on above: Order Comment: Speci men Type: BLOOD SPECIMENOrdering Facility: [facility] Address: [address] [place] [address] Performed By: #### 5 7021-8 ####[facility] HOSPITALJHON [id number] [place] [address] [place] Lymphocytes/100 WBC (Bld) 26.5 % Normal [facility] Comment on above: Order Comment: Speci men Type: BLOOD SPECIMENOrdering Facility: [facility] Address: [address] [place] [address] Performed By: #### 5 7021-8 ####[facility] [id number] [place] [address] [place] MCH (RBC) [Entitic mass] 25.8 pg Low 26.0-34.0 [facility] Comment on above: Order Comment: Speci men Type: BLOOD SPECIMENOrdering Facility: [facility] Address: [address] [place] [address] Performed By: #### 5 7021-8 ####[facility] [id number] [place] [address] [place] MCHC (RBC) [Mass/Vol] 31.4 g/dL Normal 30.5-36.0 [facility] Comment on above: Order Comment: Speci men Type: BLOOD SPECIMENOrdering Facility: [facility] Address: [address] [place] [address] Performed By: #### 5 7021-8 ####[facility] [id number] [place] [address] [place] MCV (RBC) [Entitic vol] 82.2 fL Normal 80.0-100.0 C [facility] Comment on above: Order Comment: Speci men Type: BLOOD SPECIMENOrdering Facility: [facility] Address: [address] [place] [address] Performed By: #### 5 7021-8 ####[facility]PITALNCUINTA[facility] [id number] [place] [address] [place] Monocytes (Bld) [#/Vol] 0.60 10*3/uL Normal <0.87 [facility] Comment on above: Order Comment: Speci men Type: BLOOD SPECIMENOrdering Facility: [facility] Address: [address] [place] [address] Performed By: #### 5 7021-8 ####[facility] HOSPITALA [id number] [place] [address] [place] Monocytes/100 WBC (Bld) 5.9 % Normal [facility] Comment on above: Order Comment: Speci men Type: BLOOD SPECIMENOrdering Facility: [facility] Address: [address] [place] [address] Performed By: #### 5 7021-8 ####[facility] [id number] [place] [address] [place] Neutrophils (Bld) [#/Vol] 6.62 10*3/uL Normal 1.45-7.50 [facility] Comment on above: Order Comment: Speci men Type: BLOOD SPECIMENOrdering Facility: [facility] Address: [address] [place] [address] Performed By: #### 5 7021-8 ####[facility] [id number] [place] [address] [place] Neutrophils/100 WBC (Bld) 64.6 % Normal [facility] Comment on above: Order Comment: Speci men Type: BLOOD SPECIMENOrdering Facility: [facility] Address: [address] [place] [address] Performed By: #### 5 7021-8 ####[facility] [id number] [place] [address] [place] Nucleated RBC (Bld) [#/Vol] 10*3/uL Normal <0.01 [facility] Comment on above: Order Comment: Speci men Type: BLOOD SPECIMENOrdering Facility: [facility] Address: [address] [place] [address] Performed By: #### 5 7021-8 ####[facility] DONY [id number] [place] [address] [place] Nucleated RBC/100 WBC (Bld) [Ratio] 0.0 /100 WBC Normal [facility] Comment on above: Order Comment: Speci men Type: BLOOD SPECIMENOrdering Facility: [facility] Address: [address] [place] [address] Performed By: #### 5 7021-8 ####[facility]SMURIEL [id number] [place] [address] [place] Platelet mean volume (Bld) [Entitic vol] 10.8 fL Normal 9.0-12.7 [facility] Comment on above: Order Comment: Speci men Type: BLOOD SPECIMENOrdering Facility: [facility] Address: [address] [place] [address] Performed By: #### 5 7021-8 ####[facility] HOSPITALMURIEL [id number] [place] [address] [place] Platelets (Bld) [#/Vol] 415 10*3/uL High 150-400 [facility] Comment on above: Order Comment: Speci men Type: BLOOD SPECIMENOrdering Facility: [facility] Address: [address] [place] [address] Performed By: #### 5 7021-8 ####[facility]OSPITALJUSTINOLIA [id number] [place] [address] [place] RBC (Bld) [#/Vol] 4.50 10*6/uL Normal 4.20-6.00 [facility] Comment on above: Order Comment: Speci men Type: BLOOD SPECIMENOrdering Facility: [facility] Address: [address] [place] [address] Performed By: #### 5 7021-8 ####[facility]ITALNCLIA [id number] [place] [address] [place] WBC (Bld) [#/Vol] 10.25 10*3/uL Normal 3.70-11.00 [facility] Comment on above: Order Comment: Speci men Type: BLOOD SPECIMENOrdering Facility: [facility] Address: [address] [place] [address] Performed By: #### 5 7021-8 ####[facility] [id number] [place] [address] [place] HbA1c (Bld)on 01-09-2024 Average glucose Estimated from glycated hemoglobin (Bld) [Mass/Vol] 137 mg/dL Normal [facility] Comment on above: Order Comment: Jeffi [facility] Type: BLOOD SPECIMENOrdering Facility: [facility] Address: [address] [place] [address] Result Comment: eAG: (Estimated average glucose) is a calculated value from HgbA1c and is counter sales representative of the average blood glucose level in the last 2-3 month period. Performed By: #### 5 5454-3 ####[facility] LABCLIA [id number] [place] [address] [place] HbA1c (Bld) [Mass fraction] 6.4 % High 4.3-5.6 [facility] Comment on above: Order Comment: Speci men Type: BLOOD SPECIMENOrdering Facility: [facility] Address: [address] [place] [address] Result Comment: [place] Diabetes Association guidelines indicate that patients with HgbA1c in the range 5.7-6.4% are at increased risk for development of diabetes, and intervention by lifestyle modification may be beneficial. HgbA1c greater or equal to 6.5% is considered diagnostic of diabetes. Performed By: #### 5 5454-3 ####[facility] LABCLIA [id number] [place] [address] [place] LIPID PANEL, NONFASTINGon 10 -22-2024 Cholesterol [Mass/Vol] 135 mg/dL Normal <200 [facility] Comment on above: Order Comment: Jeffi men Type: BLOOD SPECIMENOrdering Facility: [facility] Address: [address] [place] [address] Result Comment: <200 mg/dL, Desirable 200-239 mg/dL, Borderline high >239 mg/dL, High Performed By: #### L IPNF ####[facility] LABCLIA [id number] [address] [place] HDL CHOLESTEROL, NF 50 mg/dL Normal >39 [facility] Comment on above: Order Comment: Luciana men Type: BLOOD SPECIMENOrdering Facility: [facility] Address: [address] [place] [address] Result Comment: 40-5 9 mg/dL, Acceptable >59 mg/dL, High: Negative risk factor for coronary heart disease <40 mg/dL, Low: Positive risk factor for coronary heart disease Performed By: #### L IPNF ####[facility] LABCLIA [id number] [place] [address] [place] LDL CHOLESTEROL, NF 52 mg/dL Normal <100 [facility] Comment on above: Order Comment: Luciana men Type: BLOOD SPECIMENOrdering Facility: [facility] Address: [address] [place] [address] Result Comment: <100 mg/dL, Optimal 100-129 mg/dL, Near optimal/above optimal 130-159 mg/dL, Borderline high 160-189 mg/dL, High >189 mg/dL, Very high Secondary prevention optimal LDL Cholesterol levels are recommended to be < 70 mg/dL Performed By: #### L IPNF ####[facility] LABCLIA [id number] [place] [address] [place] LDL/HDL RATIO, NF 1.04 mg/dL Normal <2.54 [facility] Comment on above: Order Comment: Jeffi men Type: BLOOD SPECIMENOrdering Facility: [facility] Address: [address] [place] [address] Result Comment: Daniella campo: 1. National Cholesterol Education Program ATP III Guideline At-A-Glance Quick Desk Reference: National Heart, Lung, and Blood [place]. National Institutes of Health. 2001: NIH Publication No. 01-3305. 2. An International Atherosclerosis Society position paper: global recommendations for the management of dyslipidemia: executive summary, Atherosclerosis. 2014: 232(2):410-413. Performed By: #### L IPNF ####[facility] LABIA [id number] [place] [address] [place] NON HDL CHOL, NF 85 mg/dL Normal <130 [facility] Comment on above: Order Comment: Luciana estrada Type: BLOOD SPECIMENOrdering Facility: [facility] Address: [address] [place] [address] Result Comment: <130 mg/dL, Optimal 130-159 mg/dL, Near optimal/above optimal 160-189 mg/dL, Borderline high 190-219 mg/dL, High >219 mg/dL, Very high Secondary prevention optimal non HDL Cholesterol levels are recommended to be <100 mg/dL Performed By: #### L IPNF ####[facility] LABIA [id number] [place] [address] [place] T CHOL/HDL RATIO NF 2.70 mg/dL Normal <5.10 [facility] Comment on above: Order Comment: Luciana estrada Type: BLOOD SPECIMENOrdering Facility: [facility] Address: [address] [place] [address] Performed By: #### L IPNF ####[facility] LABIA [id number] [place] [address] [place] TRIGLYCERIDES, NF 167 mg/dL High <150 [facility] Comment on above: Order Comment: Luciana estrada Type: BLOOD SPECIMENOrdering Facility: [facility] Address: [address] [place] [address] Result Comment: <150 mg/dL, Normal 150-199 mg/dL, Borderline high 200-499 mg/dL, High >499 mg/dL, Very high Performed By: #### L IPNF ####[facility] LABCLIA [id number] [place] [address] [place] VLDL CHOLESTEROL, NF 33 mg/dL High <30 [facility] Comment on above: Order Comment: Speci men Type: BLOOD SPECIMENOrdering Facility: [facility] Address: [address] [place] [address] Performed By: #### L IPNF ####[facility] LABCLIA [id number] [address] [place] CNPAnca 12-26-2023 CNPN Telephone ([facility] JUAN M RODRIGUEZ ([id number]) 1935 M [facility] Date Time Provider Department 12/26/23 TAYE HORAN During your visit today, we recorded the following information about you: Mayra Valdez, RN 12/26/2023 1:29 PM Signed Patient phoned to let pcp know, he received a letter from Medicare Insurance, telling him in 2024, fiasp will no longer be covered. Letter states in 2024, provider will need to order INSULIN ASPART for patient instead, because this is what they will cover in 2024. Advised patient to remind provider when he calls for refills, closer to March. Patient agreeable. Taye Horan MD 12/26/2023 1:46 PM Signed Noted. Allergies As of Date: 12/26/2023 Noted Allergy Reaction DILAUDID (HYDROMORPHONE (BULK)) 09/03/2018 1 - Mental Status Change LISINOPRIL 12/24/2014 14 - Other: See Comments Comments: angioedema MAGNESIUM OXIDE 11/10/2021 14 - Other: See Comments Comments: Loose stools, leg and foot pain PENICILLINS 12/16/2002 16 - Unknown Date Reviewed: 07/14/2023 Reviewed by: Taye Horan MD - Fully Assessed Reason for Visit: Patient Update: FIASP [Other] Prescriptions as of 12/26/2023 - lovastatin (MEVACOR) 20 mg tablet Take 1 tablet by mouth daily at bedtime. - Lancets (MICROLET LANCET) 1 Each four times daily. Dx: Type 2 DM - Controlled E11.9 Insulin: Yes - metFORMIN (GLUCOPHAGE) 1,000 mg tablet Take 1 tablet by mouth two times a day with meals. - omeprazole (PRILOSEC) 40 mg capsule Take 1 capsule by mouth daily before breakfast. 1/2 hr before meal. - blood sugar diagnostic (CONTOUR TEST STRIPS) test strip Test blood sugar(s) 4 times daily. Dx: Type 2 DM - Controlled E11.9 Insulin: Yes - glimepiride (AMARYL) 1 mg tablet Take 1 tablet by mouth two times a day. - insulin aspart, niacinamide, (FIASP FLEXTOUCH U-100 INSULIN) 100 unit/mL (3 mL) pen Inject 6 Units subcutaneously three times a day before meals. - amLODIPine (NORVASC) 5 mg tablet Take 1 tablet by mouth once daily. one tab daily - fenofibrate (LOFIBRA) 200 mg capsule Take 1 capsule by mouth daily before breakfast. - insulin glargine (BASAGLAR KWIKPEN U-100 INSULIN) 100 unit/mL (3 mL) Inject 25 Units subcutaneously daily at bedtime. - Insulin [place], Disposable, (SURE COMFORT PEN NEEDLE) 32 gauge x 5/32 1 Each four times daily. - Magnesium Glycinate 100 mg tab Take 1 tablet by mouth every other day. - Cholecalciferol, Vitamin D3, 50 mcg (2,000 unit) cap Take 1 capsule by mouth. - ferrous sulfate 325 mg (65 mg iron) tablet Take 325 mg by mouth daily with breakfast. - aspirin, enteric coated (ASPIRIN, ENTERIC COATED) 81 mg EC tablet Take 1 tablet by mouth once daily. 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 *09/03/2018 Dyslipidemia [E78.5] 09/03/2018 GERD without esophagitis [K21.9] 09/03/2018 Hypertensive chronic kidney disease with stage *09/03/2018 History of kidney stones [Z87.442] 09/03/2018 History of colonic polyps [Z86.0100] 09/03/2018 Smoker [F17.200] 09/03/2018 Benign prostatic hyperplasia with lower urinary*09/03/2018 Medicare annual wellness visit, subsequent [Z00*09/03/2018 Hypomagnesemia [E83.42] 01/23/2019 Diabetic eye exam (HCC) [Z01.00, E11.9] 05/07/2019 Stage 3b chronic kidney disease (HCC) [N18.32] 10/01/2019 Anemia of chronic disease [D63.8] 11/03/2019 Essential hypertension [I10] 09/03/2018 Medication management [Z79.899] 08/28/2020 History of COVID-19 [Z86.16] 03/23/[address] [Z78.9] 07/07/2021 Advance directive discussed with patient [Z71.8*07/07/2021 Diverticulosis [K57.90] 07/08/2022 Neck pain [M54.2] 07/08/2022 Diarrhea [R19.7] 07/08/2022 Nausea [R11.0] 07/08/2022 Encounter Status:Closed by TAYE HORAN on 12/26/23 [facility] Visit Reporton 1 Urgent Care Visit Report [facility] [address], [address] [place] [address] OFFICE VISIT Date of Service: 12/20/23 MR#: [id number] Acct: [id number] Name: JUAN M RODRIGUEZ Rep #: [id number] : 1935 Provider: CORTNEY Rios Age/Sex: 87/M Location: [facility] Status: Signed Intake Vital Signs 10/20/23 07:09 12/20/23 11:55 Height 6 ft 2 in 6 ft 1 in Weight: 220 lb BMI 29.0 BP 132/96 H Blood Pressure Location Lt brachial Position Sitting Respiration 16 Pulse 98 Pulse Source Monitor Temp 98.6 F Temp Source Temporal Pulse Oximetry (%) 91 Oxygen Delivery Method room air Intake Visit Reasons: Cough Chief Complaint: COUGH FATIGUE Supervisor Beet End Required: No Accompanied by: Is patient in pain?: No Allergies lisinopril Allergy (Verified 12/20/23 11:56) Angioedema Penicillins Allergy (Verified 12/20/23 11:56) Rash hydromorphone (From Dilaudid) Adverse Reaction (Severe, Verified 12/20/23 11:56) Other Medications ???Medication ???Instructions ???Recorded ???Confirmed ???Type aspirin 81 mg tablet,delayed 81 mg PO DAILY 05/17/20 12/20/23 History release ferrous sulfate 325 mg (65 mg 325 mg PO DAILY@0800 05/17/20 12/20/23 History iron) tablet glimepiride 1 mg tablet 1 mg PO BID 05/17/20 12/20/23 History insulin aspart U-100 100 unit/mL 6 unit SQ TID 05/17/20 12/20/23 History subcutaneous solution insulin glargine 100 unit/mL (3 30 unit SQ QHS 05/17/20 12/20/23 History mL) subcutaneous pen lovastatin 20 mg tablet 20 mg PO DAILY 05/17/20 12/20/23 History metformin 1,000 mg tablet 1,000 mg PO BID 05/17/20 12/20/23 History omeprazole 20 mg tablet,delayed 40 mg PO DAILY 05/17/20 12/20/23 History release amlodipine 5 mg tablet 5 mg PO DAILY 06/17/21 12/20/23 History fenofibrate micronized 200 mg 200 mg PO DAILY 10/17/23 12/20/23 History capsule ciprofloxacin HCl 500 mg tablet 500 mg PO BID #6 tabs 10/20/23 12/20/23 Rx (Cipro) albuterol sulfate 90 mcg/actuation 2 puff inhalation Q4-6H PRN 12/20/23 12/20/23 Rx aerosol inhaler shortness of breath or wheezing #8.5 grams dexamethasone 6 mg tablet 6 mg PO DAILY #5 tabs 12/20/23 12/20/23 Rx Have you fallen in the past year?: No Nurse's Note: Pt states he has a cough that started a few days ago. pt states he had a flu injection yesterday [facility] Medical History Wears glasses Cancer Smoker Insulin dependent diabetes mellitus Arthritis Prostate disease History of renal disease Diverticulosis First degree heart block COVID-19 Sepsis Hypomagnesemia History of colon polyps CKD (chronic kidney disease) Benign prostatic hyperplasia Anemia Acute pancreatitis Kidney stones Dyslipidemia Nausea Diarrhea GERD (gastroesophageal reflux disease) High cholesterol HTN (hypertension) Diabetes Surgical History History of transurethral resection of prostate History of urethral stent ( 10/09/23) H/O inguinal hernia repair History of cholecystectomy Family History Father Hypertension TIA (transient ischemic attack) Sister CAD (coronary artery disease) Diabetes COPD (chronic obstructive pulmonary disease) Lung cancer Social History household members: spouse housing: house Smoking Status: Current every day smoker tobacco type: cigars alcohol intake: current alcohol intake frequency: 0-2 drinks per day substance use type: does not use HPI HPI Chief Complaint: COUGH FATIGUE Details: JUAN M RODRIGUEZ, is a 87 M who presents to the office today for complaint of cough, fatigue and congestion starting 2 days ago. Patient denies fever, chills, sweats. No nausea, vomiting or d iarrhea. No hemoptysis, shortness of breath or difficulty breathing. No loss of taste or smell. No other associated symptoms or alleviating/aggravati ng factors. ROS Const Constitutional: No other (As above) Exam Const General: cooperative and well developed [facility] Head: normal to inspection and atraumatic Ears: hearing grossly normal bilaterally Nose: nasal discharge clear Face and sinus: normal facial exam Mouth: oral mucosae normal Throat: abnormal tonsil bilaterally hypertrophy 1+ Resp Effort Inspection: normal respiratory effort and no audible wheezes Auscultation: Bilateral: Clear to Auscultation Cardio Palpation: normal PMI Rate: regular rate Rhythm: regular rhythm Neuro General: patient alert and CN's II-XI intact bilaterally Psych Appearance: grossly normal Mental Status: mental status grossly normal Results POC SARS AG POC SARS AG Negative Last Edit by Loly Bennett (more content not included)... Normal [facility] 11[facility]02[facility]23 [facility] JUAN M RODRIGUEZ ([id number]) 1935 M UPA Date Time Provider Department 11/02/23 JUDI RICE During your visit today, we recorded the following information about you: Madison Woodard, RN 11/02/2023 8:42 AM Signed Pt called in and wanted to switch his 01/12/[address] Horan to Judi BARR. I tried to tell them that they switch back and forth and that Dr Horan had plenty of open appt times in December I could put him in. Pt states Dr Horan always cancels on him and he doesn't want to be put with him. He states he came in and talked with Judi BARR yesterday, not sure if she said she would let him see her. I tried to tell him that Judi does not take on her own patients and that he would have to see Dr Horan at some point in time. Please call and advise. Judi Rice PA-C 11/02/2023 12:34 PM Signed We discussed this yesterday. Patient is aware that he is still a patient of Dr. Horan's. Allergies As of Date: 11/02/2023 Noted Allergy Reaction DILAUDID (HYDROMORPHONE (BULK)) 09/03/2018 1 - Mental Status Change LISINOPRIL 12/24/2014 14 - Other: See Comments Comments: angioedema MAGNESIUM OXIDE 11/10/2021 14 - Other: See Comments Comments: Loose stools, leg and foot pain PENICILLINS 12/16/2002 16 - Unknown Date Reviewed: 07/14/2023 Reviewed by: Taye Horan MD - Fully Assessed Reason for Visit: Appointment [[id number]] Prescriptions as of 11/02/2023 - omeprazole (PRILOSEC) 40 mg capsule Take 1 capsule by mouth daily before breakfast. 1/2 hr before meal. - blood sugar diagnostic (CONTOUR TEST STRIPS) test strip Test blood sugar(s) 4 times daily. Dx: Type 2 DM - Controlled E11.9 Insulin: Yes - glimepiride (AMARYL) 1 mg tablet Take 1 tablet by mouth two times a day. - insulin aspart, niacinamide, (FIASP FLEXTOUCH U-100 INSULIN) 100 unit/mL (3 mL) pen Inject 6 Units subcutaneously three times a day before meals. - amLODIPine (NORVASC) 5 mg tablet Take 1 tablet by mouth once daily. one tab daily - Lancets (MICROLET LANCET) 1 Each four times daily. Dx: Type 2 DM - Controlled E11.9 Insulin: Yes - fenofibrate (LOFIBRA) 200 mg capsule Take 1 capsule by mouth daily before breakfast. - lovastatin (MEVACOR) 20 mg tablet Take 1 tablet by mouth daily at bedtime. - metFORMIN (GLUCOPHAGE) 1,000 mg tablet Take 1 tablet by mouth two times a day with meals. - insulin glargine (BASAGLAR KWIKPEN U-100 INSULIN) 100 unit/mL (3 mL) Inject 25 Units subcutaneously daily at bedtime. - Insulin [place], Disposable, (SURE COMFORT PEN NEEDLE) 32 gauge x 5/32 1 Each four times daily. - Magnesium Glycinate 100 mg tab Take 1 tablet by mouth every other day. - Cholecalciferol, Vitamin D3, 50 mcg (2,000 unit) cap Take 1 capsule by mouth. - ferrous sulfate 325 mg (65 mg iron) tablet Take 325 mg by mouth daily with breakfast. - aspirin, enteric coated (ASPIRIN, ENTERIC COATED) 81 mg EC tablet Take 1 tablet by mouth once daily. 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 *09/03/2018 Dyslipidemia [E78.5] 09/03/2018 GERD without esophagitis [K21.9] 09/03/2018 Hypertensive chronic kidney disease with stage *09/03/2018 History of kidney stones [Z87.442] 09/03/2018 History of colonic polyps [Z86.010] 09/03/2018 Smoker [F17.200] 09/03/2018 Benign prostatic hyperplasia with lower urinary*09/03/2018 Medicare annual wellness visit, subsequent [Z00*09/03/2018 Hypomagnesemia [E83.42] 01/23/2019 Diabetic eye exam (HCC) [Z01.00, E11.9] 05/07/2019 Stage 3b chronic kidney disease (HCC) [N18.32] 10/01/2019 Anemia of chronic disease [D63.8] 11/03/2019 Essential hypertension [I10] 09/03/2018 Medication management [Z79.899] 08/28/2020 History of COVID-19 [Z86.16] 03/23/[address] [Z78.9] 07/07/2021 Advance directive discussed with patient [Z71.8*07/07/2021 Diverticulosis [K57.90] 07/08/2022 Neck pain [M54.2] 07/08/2022 Diarrhea [R19.7] 07/08/2022 Nausea [R11.0] 07/08/2022 Encounter Status:Closed by JUDI BYRD on 11/02/23 Normal [facility] Bedside Glucoseon 10-20-2023 FINGERSTICK GLU 94 mg/dL Normal 74-[address] [facility] Comment on above: Result Comment: FABIAN MAGAÑA OF PATIENT CARE PER NURSING PROTOCOL Performed By: #### L 501.080 #### [facility] Laboratory [address] [place], [address] Discharge Instructionon Discharge Instruction [facility] Medical Records Department [address] [place] [address] Instructions for Home/Discharge Instructions 10/20/23 0733 MR#: [id number] Acct: [id number] Name: JUAN M RODRIGUEZ Rep #: [id number] : 1935 87 From: Adal Torres MD PCP: Dr. Taye Horan MD Status:REG [facility] Discharge Instructions Diet Discharge Diet: No restrictions Activity Discharge Activity: Return to Normal Activity and May Not Drive (while taking narcotic pain medications.) Dressing / Incision Call your doctor if you observe: Fever of 101 or Higher Follow Up Care Please Follow Up With: Adal Torres MD When: Call [phone] for an appointment Test Results: Test results from this visit will be discussed in further detail at your follow-up appointment, if applicable. Discharge Plan Admission Primary Reason for Your Visit: laser stone Attending Provider: Adal Torres Primary Care Provider: Taye Horan Instructions Print Language: Sierra Leonean Discharge Orders/Prescriptions Prescriptions: Continued aspirin 81 MG tablet,delayed release (DR/EC) 81 mg PO DAILY glimepiride 1 MG tablet 1 mg PO BID insulin aspart U-100 100 UNIT/ML solution 6 unit SQ TID ferrous sulfate 325 MG tablet 325 mg PO DAILY@0800 metformin 1,000 MG tablet 1,000 mg PO BID lovastatin 20 MG tablet 20 mg PO DAILY insulin glargine 100 UNIT/ML insulin pen 30 unit SQ QHS omeprazole 20 MG tablet,delayed release (DR/EC) 40 mg PO DAILY amlodipine 5 mg tablet 5 mg PO DAILY fenofibrate micronized 200 mg capsule 200 mg PO DAILY Referrals / Follow Up: Taye Horan MD [Primary Care Provider] - Adal Torres MD [Med Staff - Active Staff] - Disposition Disposition (needs filled in before D/C Order can be placed): Home, Self Care 10/20/23 0734 Adal Torres MD CC: Dr. Taye Horan MD Signed [facility] MR/POSTOP.[facility] 10-20-2023 MR/POSTOP.[facility] Medical Records Department [address] [place] [address] Anesthesia Postop Eval I 10/20/23 0849 MR#: [id number] Acct: [id number] Name: JUAN M RODRIGUEZ Rep #: [id number] : 1935 87 From: Emma Snyder CRNA PCP: Dr. Taye Horan MD Status:REG SDC Y Race: C Location: [facility]20 Anesthesia: Postop Eval I Current Vital Signs Temperature: 97.7 F Pulse Rate: 70 Blood Pressure: 119/91 Respiratory Rate: 16 Pulse Ox: 95 Oxygen Delivery Method: Room Air Assessment Airway patent: Yes Spontaneous unlabored respirations: Yes Mental status: Awake and Calm nausea: No Vomiting: No Anesthesia Complication: No Fluid Hydration Crystalloid volume administer (ml): 700 Total IV fluid infused: 700 Progress Note Anesthesia document: Postop Eval 1 completed: Yes 10/20/23 0849 Date Emma Snyder PATROL DRIVER Cosigner Signature: Date CC: Signed Normal [facility] MR/[id number] 10-20-2023 MR/POSTOPAN2 [facility] Medical Records Department [address] [facility] [place] [address] Anesthesia Postop Eval II 10/20/23 0948 MR#: [id number] Acct: [id number] Name: JUAN M RODRIGUEZ Rep #: [id number] : 1935 87 From: Terry Cuellar MD PCP: Dr. Taye Horan MD Status:REG [facility] Y Race: C Location: [place] [address] Anesthesia Postop Eval I Sum Postop Eval Completion status Anesthesia document: Postop Eval 1 completed: Yes Anesthesia Postop Eval I Summary Anesthesia Postop Eval I Summary: Anesthesia Postop Eval I: Assessment Summary Airway patent Yes 10/20/23 08:49 PATROL DRIVER.[email or web address] Spontaneous unlabored Yes 10/20/23 08:49 PATROL DRIVER.PRESLEY respirations Mental status Awake,Calm 10/20/23 08:49 PATROL DRIVER.SKOBY nausea No 10/20/23 08:49 PATROL DRIVER.SKOBY Vomiting No 10/20/23 08:49 PATROL DRIVER.SKOBY Anesthesia Postop Eval I: Fluid Summary Crystalloid volume administer 700 10/20/23 08:49 PATROL DRIVER.SKOBY (ml) Colloids volume administered ( ml) Blood Product volume administered (ml) Total IV fluid infused 700 10/20/23 08:49 PATROL DRIVER.SKOBY Anesthesia Postop Eval I: Summary Notes Anesthesia Complication No 10/20/23 08:49 PATROL DRIVER.SKOBY Anesthesia Complication Comment: Post-operative progress note Anesthesia: Postop Eval II Evaluation Mental status: Awake Pain Level: 0 nausea: No Vomiting: No Complications Anesthesia Complication: No 10/20/23 0948 Date Terry Lopezigndemetra Signature: Date CC: Signed Normal [facility] Operative Reporton 4 Operative Report [facility] Medical Records Department [address] [place] [address] Operative Report 10/20/23 0841 MR#: [id number] Acct: [id number] Name: JUAN M RODRIGUEZ Rep #: [id number] : 1935 87 From: Adal Torres MD PCP: Dr. Taye Horan MD Status:[facility] Location: [place] [address] Report of Operation Date of Procedure: 10/20/23 Pre-Operative Diagnosis: Right ureteral calculi causing obstruction and multiple right kidney stones Post-Operative Diagnosis: The same Surgery/Procedure Performed:: Cystoscopy right ureteroscopy laser lithotripsy of stones in the ureter and the kidney and right stent placement Description of Surgical Findings:: Patient was taken back to the operating room after smooth induction of anesthesia he was placed in dorsolithotomy position. Penis and testicles were prepped and draped in usual sterile fashion, went into the bladder with a 21 Macedonian rigid cystourethroscope and grabbed the existing stent pulled out the meatus put a wire up through the stent and then over the wire went in with a 7 Macedonian Olympus flexible ureteroscope as I went up to the ureter I encountered the large stone fragment in the mid ureter I then used a 365 ???m thulium laser fiber and I lasered the stone into little tiny pieces I then went up the ureter and went to the kidney and inspected the upper pole midpole lower pole the kidney and there were several fragments and all these fragments were also lasered as well, after successful lasering all the stones in the kidney that and then the major stone in the ureter then I worked my way down the ureter all the fragments passed into the bladder I then removed the cystoscope went back in with the scope cannulated the right ureter orifice with a Glidewire and advanced a stent on the right side of the string of the stent but cut it short to prevent early extraction and patient's anesthetic was reversed taken back to the PACU in good condition I will see him next week for cystoscopy stent removal Surgeon: Adal Torres Type of Anesthesia: General Drains: right stent Estimated Blood Loss (mL): 0 Admit VTE Documentation VTE Present on Admission: No VTE Mechan Device Prophylaxis: SCD's VTE Pharm Prophylaxis ordered?: No 10/20/23 0843 Cosigner Signature (if applicable): CC: Dr. Taye Horan MD; Dr. Adal Torres MD Signed Normal [facility] MR/[id number] 10-10-2023 MR/POSTOPAN2 [facility] Medical Records Department [address] [place] [address] Anesthesia Postop Eval II 10/10/2330 MR#: [id number] Acct: [id number] Name: JUAN M RODRIGUEZ Rep #: [id number] : 1935 87 From: Jay Banks MD PCP: Dr. Taye Horan MD Status:DIS IN Y Race: C Location: [place] [address] Anesthesia Postop Eval I Sum Postop Eval Completion status Anesthesia document: Postop Eval 1 completed: Yes Anesthesia Postop Eval I Summary Anesthesia Postop Eval I Summary: Anesthesia Postop Eval I: Assessment Summary Airway patent Yes 10/09/23 16:44 PATROL DRIVER.OT Spontaneous unlabored Yes 10/09/23 16:44 PATROL DRIVER.RICHELLE respirations Mental status Awake,Calm 10/09/23 16:44 PATROL DRIVEROT nausea No 10/09/23 16:44 PATROL DRIVERMadinaMDOT Vomiting No 10/09/23 16:44 PATROL DRIVERMICHELE Anesthesia Postop Eval I: Fluid Summary Crystalloid volume administer 400 10/09/23 16:44 PATROL DRIVERMICHELE (ml) Colloids volume administered ( ml) Blood Product volume administered (ml) Total IV fluid infused 400 10/09/23 16:44 PATROL DRIVER.RICHELLE Anesthesia Postop Eval I: Summary Notes Anesthesia Complication No 10/09/23 16:44 KAYLAH Anesthesia Complication Comment: Post-operative progress note Anesthesia: Postop Eval II Evaluation Mental status: Awake and Calm Pain Level: 1 nausea: No Vomiting: No Complications Anesthesia Complication: No 10/10/23 0931 Date Jay Banks MD Cosigner Signature: Date CC: Signed Normal [facility] 12 Lead EKGon 10-09-2023 12 Lead EKG [facility] Cardiovascular Services [address] [place] [address] 12 Lead EKG 10/09/23 1209 MR#: [id number] Acct: [id number] Name: JUAN M RODRIGUEZ Rep #: [id number] : 1935 87 From: David Carrizales MD Attending Dr: Dr. Wolfgang Cisneros, DO Status: D IS IN Ordering Dr: Adal Torres MD Date: 10/09/23 Location: [facility] Sex: M C Admitted: 10/07/23 Test Reason : Blood Pressure : / mmHG Vent. Rate : 063 BPM Atrial Rate : 063 BPM P-R Int : 362 ms QRS Dur : 094 ms QT Int : 408 ms P-R-T Axes : 069 -48 083 degrees QTc Int : 417 ms Sinus rhythm with 1st degree A-V block Left anterior fascicular block Nonspecific ST and T wave abnormality Abnormal ECG When compared with ECG of 09-OCT-2023 04:15, MANUAL COMPARISON REQUIRED, DATA IS UNCONFIRMED Confirmed by DAVID CARRIZALES MD ([id number]), editor managing director MADISON BATES ([id number]) on 10/10/2023 8:26:41 AM Referred By: GUNNAR Confirmed By:DAVID CARRIZALES MD 10/10/23825 Date David Carrizales MD CC: Dr. Taye Horan MD; Dr. Adal Torres MD; Dr. Wolfgang Cisneros DO Signed Normal [facility] 12 Lead EKG [facility] Cardiovascular Services [address] [place] [address] 12 Lead EKG 10/09/23 0415 MR#: [id number] Acct: [id number] Name: JUAN M RODRIGUEZ Rep #: [id number] : 1935 87 From: David Carrizales MD Attending Dr: Dr. Wolfgang Cisneros DO Status: A DM IN Ordering Dr: Gabino Joshua DO Date: 10/09/23 Location: [facility] Sex: M C Admitted: 10/07/23 Test Reason : CP Blood Pressure : / mmHG Vent. Rate : 063 BPM Atrial Rate : 063 BPM P-R Int : 328 ms QRS Dur : 096 ms QT Int : 406 ms P-R-T Axes : 000 -46 095 degrees QTc Int : 415 ms Sinus rhythm with 1st degree A-V block Left anterior fascicular block When compared with ECG of 07-OCT-2023 17:48, MANUAL COMPARISON REQUIRED, DATA IS UNCONFIRMED Confirmed by SOFIE CABELLO, DAVID ([id number]), editor managing director MADISON BATES ([id number]) on 10/09/2023 1:01:45 PM Referred By: Confirmed By:DAVID CARRIZALES MD 10/09/23 1301 Date David Carrizales MD CC: Dr. Gabino Joshua DO; Dr. Taye Horan MD; Dr. Wolfgang Cisneros DO Signed [facility] Basic Metabolic Profile (BMP )on 10-09-2023 BUN/CRE 13.4 RATIO Normal - [facility] Comment on above: Performed By: #### L 500.2500, L100.0100 #### [facility] Laboratory [address] [place], [address] CA,Total 9.0 mg/dL Normal 8.5-10.[address] [facility] Comment on above: Performed By: #### L 500.2500, L100.0100 #### [facility] [address] [place], [address] Chloride [Moles/Vol] 107 mmol/L Normal 98-107 [facility] Comment on above: Performed By: #### L 500.2500, L100.0100 #### [facility] [address] [place], [address] CO2 [Moles/Vol] 26.0 mmol/L Normal 21.0-32.[address] [facility] Comment on above: Performed By: #### L 500.2500, L100.0100 #### [facility] Laboratory [address] [place], [address] Creatinine [Mass/Vol] 2.01 mg/dL High 0.70-1.30 [facility] Comment on above: Result Comment: The validity of the calculated GFR GFRAA in patients over 70 years has not been determined. Clinical correlation is essential. Performed By: #### L 500.2500, L100.0100 #### [facility] Laboratory [address] [place], [address] ECRCL 33.32 ml/min Normal [facility] Comment on above: Performed By: #### L 500.2500, L100.0100 #### [facility] [address] [place], [address] EST GFR - AA 41 mL/min Low >[address] [facility] Comment on above: Result Comment: Afri can Argentine GFR Calc Performed By: #### L 500.2500, L100.0100 #### [facility] [address] [place], [address] GAP 7 Normal 5-[address] [facility] Comment on above: Performed By: #### L 500.2500, L100.0100 #### [facility] [address] [place], [address] GFR/1.73 sq M.predicted among non-blacks MDRD (S/P/Bld) [Vol rate/Area] 34 mL/min/{1.73_m2} Low >[address] [facility] Comment on above: Result Comment: Non- GFR Calc Performed By: #### L 500.2500, L100.0100 #### [facility] [address] [place], [address] Glucose [Mass/Vol] 108 mg/dL High 74-106 [facility] Comment on above: Result Comment: Fast ing Glucose result from 100 to 125 mg/dL suggests IMPAIRED HOMEOSTASIS per A.D.A. criteria. Performed By: #### L 500.2500, L100.0100 #### [facility] [address] [place], [address] Potassium [Moles/Vol] 4.0 mmol/L Normal 3.5-5.1 [facility] Comment on above: Performed By: #### L 500.2500, L100.0100 #### [facility] [address] [place], [address] Sodium [Moles/Vol] 140 mmol/L Normal 136-145 [facility] Comment on above: Performed By: #### L 500.2500, L100.0100 #### [facility] [address] [place], [address] Urea nitrogen [Mass/Vol] 27 mg/dL High 7-[address] [facility] Comment on above: Performed By: #### L 500.2500, L100.0100 #### [facility] [address] [place], [address] Bedside Glucoseon 10-09-2023 FINGERSTICK GLU 100 mg/dL Normal 74-[address] [facility] Comment on above: Result Comment: FABIAN GEMENT OF PATIENT CARE PER NURSING PROTOCOL Performed By: #### L 501.080 #### [facility] Laboratory [address] [place], [address] FINGERSTICK GLU 96 mg/dL Normal 74-[address] [facility] Comment on above: Result Comment: FABIAN GEMENT OF PATIENT CARE PER NURSING PROTOCOL Performed By: #### L 501.080 #### [facility] [address] [place], [address] FINGERSTICK GLU 92 mg/dL Normal 74-[address] [facility] Comment on above: Result Comment: FABIAN GEMENT OF PATIENT CARE PER NURSING PROTOCOL Performed By: #### L 501.080 #### [facility] [address] [place], [address] CBC W/Diff, Automatedon 07- Absolute Lymph 1.96 X10 3/uL Normal 0.83-4.[address] [facility] Comment on above: Performed By: #### L 500.2500, L100.0100 #### [facility] [address] [place], [address] Absolute Neut 3.8 X10 3/uL Normal 2.0-7.[address] [facility] Comment on above: Performed By: #### L 500.2500, L100.0100 #### [facility] [address] [place], [address] Basophils/100 WBC (Bld) 0.8 % Normal 0-1 [facility] Comment on above: Performed By: #### L 500.2500, L100.0100 #### [facility] [address] [place], [address] Eosinophils/100 WBC (Bld) 2.7 % Normal 0-[address] [facility] Comment on above: Performed By: #### L 500.2500, L100.0100 #### [facility] [address] [place], [address] Erythrocyte distribution width (RBC) [Ratio] 16.1 % High 11.6-14.[address] [facility] Comment on above: Performed By: #### L 500.2500, L100.0100 #### [facility] [address] [place], [address] Hematocrit (Bld) [Volume fraction] 32.1 % Low 40-[address] [facility] Comment on above: Performed By: #### L 500.2500, L100.0100 #### [facility] [address] [place], [address] Hemoglobin (Bld) [Mass/Vol] 10.0 g/dL Low 13.0-16.[address] [facility] Comment on above: Performed By: #### L 500.2500, L100.0100 #### [facility] [address] [place], [address] IG% 0.500 Normal 0.0-0.[address] [facility] Comment on above: Result Comment: IG% - Immature Granulocytes (promyelocytes, myelocytes and metamyelocytes) > 1% indicates that a LEFT SHIFT is Present. Performed By: #### L 500.2500, L100.0100 #### [facility] [address] [place], [address] Lymphocytes/100 WBC (Bld) 30.9 % Normal 19-[address] [facility] Comment on above: Performed By: #### L 500.2500, L100.0100 #### [facility] [address] [place], [address] MCH (RBC) [Entitic mass] 25.8 pg Low 27.0-32.[address] [facility] Comment on above: Performed By: #### L 500.2500, L100.0100 #### [facility] [address] [place], [address] MCHC (RBC) [Mass/Vol] 31.2 g/dL Low 32-36 [facility] Comment on above: Performed By: #### L 500.2500, L100.0100 #### [facility] [address] [place], [address] MCV (RBC) [Entitic vol] 82.9 fL Normal 80-94 [facility] Comment on above: Performed By: #### L 500.2500, L100.0100 #### [facility] [address] [place], [address] Monocytes/100 WBC (Bld) 6.0 % Normal 0-10 [facility] Comment on above: Performed By: #### L 500.2500, L100.0100 #### [facility] [address] [place], [address] Neutrophils/100 WBC (Bld) 59.1 % Normal 47-[address] [facility] Comment on above: Performed By: #### L 500.2500, L100.0100 #### [facility] [address] [place], [address] Nucleated RBC (Bld) [#/Vol] 0 10*3/uL Normal 0-[address] [facility] Comment on above: Performed By: #### L 500.2500, L100.0100 #### [facility] [address] [place], [address] Platelet mean volume (Bld) [Entitic vol] 10.4 fL Normal 6.2-12.[address] [facility] Comment on above: Performed By: #### L 500.2500, L100.0100 #### [facility] [address] [place], [address] Platelets (Bld) [#/Vol] 322 10*3/uL Normal 150-[address] [facility] Comment on above: Performed By: #### L 500.2500, L100.0100 #### [facility] [address] [place], [address] RBC (Bld) [#/Vol] 3.87 10*6/uL Low 4.6-6.2 [facility] Comment on above: Performed By: #### L 500.2500, L100.0100 #### [facility] [address] [place], [address] RDW SD 48.5 fl High 35.1-43.[address] [facility] Comment on above: Performed By: #### L 500.2500, L100.0100 #### [facility] [address] [place], [address] WBC (Bld) [#/Vol] 6.4 10*3/uL Normal 4.4-11.0 [facility] Comment on above: Performed By: #### L 500.2500, L100.0100 #### [facility] [address] [place], [address] Consultation - Urologyon Consultation - Urology [facility] Medical Records Department [address] [place] [address] Consultation - Urology 10/09/23 0740 MR#: [id number] Acct: [id number] Name: JUAN M RODRIGUEZ Rep #: [id number] : 1935 87 From: Adal Torres MD PCP: Dr. Taye Horan MD Status:ADM IN [facility] Assessment Plan Assessment/Plan (1) Nephrolithiasis: PLAN: Obstructing right ureteral calculi in the mid ureter and distal ureter plan for cystoscopy and stent placement today n.p.o. for surgery. HPI Consult Data Date of Consult: 10/09/23 HPI Narrative Reason for Consultation: Obstructing right ureteral calculi HPI Narrative: JUAN M RODRIGUEZ, is a 87 M who presents to the hospital with 2 stones 1 in the distal right ureter very small and another stone in the mid ureter that larger causing obstruction and hydronephrosis he did come in with hypoxia which has improved but he does have obstruction and there is concern for infection plan to proceed with cystoscopy and stent placement today talk to the patient and make sure he is agreeable with this we will set him up for laser of the stone later on. [facility] Medical History First degree heart block COVID-19 Sepsis Hypomagnesemia History of colon polyps CKD (chronic kidney disease) Benign prostatic hyperplasia Anemia Acute pancreatitis Kidney stones Dyslipidemia Nausea Diarrhea GERD (gastroesophageal reflux disease) High cholesterol HTN (hypertension) Diabetes Home Medications ???Medication ???Instructions ???Recorded ???Last Taken ???Type aspirin 81 mg tablet,delayed 81 mg PO DAILY 05/17/20 Unknown History release ferrous sulfate 325 mg (65 mg 325 mg PO DAILY@0800 05/17/20 Unknown History iron) tablet glimepiride 1 mg tablet 1 mg PO BID 05/17/20 Unknown History insulin aspart U-100 100 unit/mL 6 unit SQ TID 05/17/20 Unknown History subcutaneous solution insulin glargine 100 unit/mL (3 30 unit SQ QHS 05/17/20 Unknown History mL) subcutaneous pen lovastatin 20 mg tablet 20 mg PO DAILY 05/17/20 Unknown History metformin 1,000 mg tablet 1,000 mg PO BID 05/17/20 Unknown History omeprazole 20 mg tablet,delayed 40 mg PO DAILY 05/17/20 Unknown History release amlodipine 5 mg tablet 5 mg PO DAILY 06/17/21 Unknown History Allergy/AdvReac Type Severity Reaction Status Date / Time hydromorphone (From Dilaudid) Allergy NEEDS Verified 10/07/23 13:51 FOLLOW-UP lisinopril Allergy Angioedema Verified 10/07/23 13:51 Penicillins Allergy Rash Verified 10/07/23 13:51 Family History Father Hypertension TIA (transient ischemic attack) Sister CAD (coronary artery disease) Diabetes COPD (chronic obstructive pulmonary disease) Lung cancer Surgical History H/O inguinal hernia repair History of cholecystectomy Social History household members: spouse housing: house Smoking Status: Current every day smoker tobacco type: cigars alcohol intake: current alcohol intake frequency: 0-2 drinks per day substance use type: does not use Lab / Micro Data 10/08/23 05:29 10/08/23 05:29 Labs: Laboratory Results - last 24 hr 10/08/23 11:11: POC Glucose 141 H 10/08/23 16:10: POC Glucose 135 H 10/08/23 21:18: POC Glucose 198 H 10/09/23 06:18: POC Glucose 92 10/09/23 0741 Cosigner Signature (if applicable): CC: Dr. Taye Horan MD Signed Normal [facility] Discharge Instructionon 09-18 Discharge Instruction [facility] Medical Records Department [address] [place] [address] Instructions for Home/Discharge Instructions 10/09/23 1700 MR#: [id number] Acct: [id number] Name: JUAN M RODRIGUEZ Rep #: [id number] : 1935 87 From: Wolfgang Cisneros DO PCP: Dr. Taye Horan MD Status:ADM IN Discharge Instructions Diet Discharge Diet: 1800 Calorie Control Diet Activity Discharge Activity: Return to Normal Activity Weight Bearing Status: Full weight bearing Follow Up Care Test Results: Test results from this visit will be discussed in further detail at your follow-up appointment, if applicable. Discharge Plan Admission Admit Date/Time: 10/07/23 19:05 Primary Reason for Your Visit: Right ureteral calculus with hydronephrosis Attending Provider: Wolfgang Cisneros Primary Care Provider: Taye Horan Consulting Providers: Leyla Do; Adal Torres Discharge Orders/Prescriptions Prescriptions: New cephalexin 500 mg tablet 500 mg PO BID Qty: 11 0RF Rx Instructions: start on 10/09/23 Continued aspirin 81 MG tablet,delayed release (DR/EC) 81 mg PO DAILY glimepiride 1 MG tablet 1 mg PO BID insulin aspart U-100 100 UNIT/ML solution 6 unit SQ TID ferrous sulfate 325 MG tablet 325 mg PO DAILY@0800 metformin 1,000 MG tablet 1,000 mg PO BID lovastatin 20 MG tablet 20 mg PO DAILY insulin glargine 100 UNIT/ML insulin pen 30 unit SQ QHS omeprazole 20 MG tablet,delayed release (DR/EC) 40 mg PO DAILY amlodipine 5 mg tablet 5 mg PO DAILY Referrals / Follow Up: Taye Horan MD [Primary Care Provider] - Within 2 Weeks Adal Torres MD [Med Staff - Active Staff] - See Referral Note (Follow-up with Dr. Torres has instructed, if the office does not contact you by Monday, please call the office for follow-up instructions) Disposition Disposition (needs filled in before D/C Order can be placed): Home, Self Care 10/09/23 1733 Wolfgang Cisneros DO CC: Dr. Taye Horan MD; Dr. Adal Torres MD; Dr. Leyla Do DO Signed [facility] MR/POSTOP.[facility] 10-09-2023 MR/POSTOP.[facility] Medical Records Department [address] [place] [address] Anesthesia Postop Eval I 10/09/231643 MR#: [id number] Acct: [id number] Name: JUAN M RODRIGUEZ Rep #: [id number] : 1935 87 From: Fady Perez PCP: Dr. Taye Horan MD Status:ADM IN Y Race: C Location: [place] [address] Anesthesia: Postop Eval I Current Vital Signs Temperature: 98.6 F Pulse Rate: 65 Blood Pressure: 120/54 Respiratory Rate: 16 Pulse Ox: 92 Oxygen Delivery Method: Room Air Assessment Airway patent: Yes Spontaneous unlabored respirations: Yes Mental status: Awake and Calm nausea: No Vomiting: No Anesthesia Complication: No Fluid Hydration Crystalloid volume administer (ml): 400 Total IV fluid infused: 400 Progress Note Anesthesia document: Postop Eval 1 completed: Yes 10/09/231644 Date Fady Lopezigndemetra Signature: Date CC: Signed Normal [facility] Magnesiumon 10-09-2023 Magnesium [Mass/Vol] 1.9 mg/dL Normal 1.6-2.6 [facility] Comment on above: Performed By: #### L 501.5200 #### [facility] [address] [facility] [place], [address] Operative Reporton 4 Operative Report [facility] Medical Records Department [address] [place] [address] Operative Report 10/09/23 1639 MR#: [id number] Acct: [id number] Name: JUAN M RODRIGUEZ Rep #: [id number] : 1935 87 From: Adal Torres MD PCP: Dr. Taye Horan MD Status:ADM IN Location: [place] [address]-1 Report of Operation Date of Procedure: 10/09/23 Pre-Operative Diagnosis: Obstructing right ureteral calculi Post-Operative Diagnosis: The same Surgery/Procedure Performed:: Cystoscopy, right retrograde pyelogram and right stent placement Description of Surgical Findings:: This 87-year-old male with obstructing stones in the right ureter and leukocytosis came in with not feeling well hypoxia concern for an infection in the right kidney so today we will place a stent on the right side. Patient was taken back to the operative room at a smooth induction of anesthesia he was placed in dorsolithotomy position. Went into the bladder with a 21 Macedonian rigid cystourethroscope has evidence he had prior prostate surgery with a laser wide open channel I then cannulated the right ureteral orifice with a Glidewire performed a retrograde pyelogram see contrast going up to the kidney there was minimal hydronephrosis he did have stone seen on CAT scan in the mid ureter I then put a wire up on the right side really could not identify any stones a retrograde was hard to tell for sure but we put a wire and of the wire placed a stent and then the stent coiled in the kidney and bladder good position. The patient come back in about a week for ureteroscopy laser lithotripsy and stent removal. Surgeon: Adal Torres Type of Anesthesia: General Admit VTE Documentation VTE Present on Admission: No VTE Mechan Device Prophylaxis: SCD's VTE Pharm Prophylaxis ordered?: No 10/09/23 [facility] Cosigner Signature (if applicable): CC: Dr. Taye Horan MD; Dr. Adal Torres MD; Dr. Leyla Do DO Signed Normal [facility] Bedside Glucoseon 10-08-2023 FINGERSTICK GLU 198 mg/dL High 74-[address] [facility] Comment on above: Result Comment: FABIAN GEMENT OF PATIENT CARE PER NURSING PROTOCOL Performed By: #### L 501.080 #### [facility] [address] [facility] [address] FINGERSTICK GLU 135 mg/dL High [facility] [facility] Comment on above: Result Comment: FABIAN GEMENT OF PATIENT CARE PER NURSING PROTOCOL Performed By: #### L 501.080 #### [facility] [address] [facility] [address] FINGERSTICK GLU 141 mg/dL High [address] [place] [address] Comment on above: Result Comment: FABIAN GEMENT OF PATIENT CARE PER NURSING PROTOCOL Performed By: #### L 501.080 #### [facility] [address] [place], [address] FINGERSTICK GLU 114 mg/dL High [facility] [facility] Comment on above: Result Comment: FABIAN GEMENT OF PATIENT CARE PER NURSING PROTOCOL Performed By: #### L 501.080 #### [facility] [address] [place], [address] CBC W/Diff, Automatedon - Absolute Lymph 2.49 X10 3/uL Normal 0.83-4.[address] [facility] Comment on above: Performed By: #### L 501.080 #### [facility] [address] [place], [address] Absolute Neut 6.5 X10 3/uL Normal 2.0-7.[address] [facility] Comment on above: Performed By: #### L 501.080 #### [facility] [address] [place], [address] Basophils/100 WBC (Bld) 0.3 % Normal 0-1 [facility] Comment on above: Performed By: #### L 501.080 #### [facility] [address] [place], [address] Eosinophils/100 WBC (Bld) 1.0 % Normal 0-[address] [facility] Comment on above: Performed By: #### L 501.080 #### [facility] [address] [place], [address] Erythrocyte distribution width (RBC) [Ratio] 16.3 % High 11.6-14.[address] [facility] Comment on above: Performed By: #### L 501.080 #### [facility] [address] [place], [address] Hematocrit (Bld) [Volume fraction] 31.4 % Low 40-[address] [facility] Comment on above: Performed By: #### L 501.080 #### [facility] [address] [place], [address] Hemoglobin (Bld) [Mass/Vol] 9.8 g/dL Low 13.0-16.[address] [facility] Comment on above: Performed By: #### L 501.080 #### [facility] [address] [place], [address] IG% 0.500 Normal 0.0-0.[address] [facility] Comment on above: Result Comment: IG% - Immature Granulocytes (promyelocytes, myelocytes and metamyelocytes) > 1% indicates that a LEFT SHIFT is Present. Performed By: #### L 501.080 #### [facility] [address] [place], [address] Lymphocytes/100 WBC (Bld) 25.5 % Normal 19-[address] [facility] Comment on above: Performed By: #### L 501.080 #### [facility] [address] [place], [address] MCH (RBC) [Entitic mass] 26.0 pg Low 27.0-32.[address] [facility] Comment on above: Performed By: #### L 501.080 #### [facility] [address] [place], [address] MCHC (RBC) [Mass/Vol] 31.2 g/dL Low 32-36 [facility] Comment on above: Performed By: #### L 501.080 #### [facility] [address] [place], [address] MCV (RBC) [Entitic vol] 83.3 fL Normal 80-94 [facility] Comment on above: Performed By: #### L 501.080 #### [facility] [address] [place], [address] Monocytes/100 WBC (Bld) 6.1 % Normal 0-10 [facility] Comment on above: Performed By: #### L 501.080 #### [facility] [address] [place], [address] Neutrophils/100 WBC (Bld) 66.6 % Normal 47-[address] [facility] Comment on above: Performed By: #### L 501.080 #### [facility] [address] [place], [address] Nucleated RBC (Bld) [#/Vol] 0 10*3/uL Normal 0-[address] [facility] Comment on above: Performed By: #### L 501.080 #### [facility] [address] [place], [address] Platelet mean volume (Bld) [Entitic vol] 10.6 fL Normal 6.2-12.[address] [facility] Comment on above: Performed By: #### L 501.080 #### [facility] [address] [place], [address] Platelets (Bld) [#/Vol] 353 10*3/uL Normal 150-[address] [facility] Comment on above: Performed By: #### L 501.080 #### [facility] [address] [place], [address] RBC (Bld) [#/Vol] 3.77 10*6/uL Low 4.6-6.2 [facility] Comment on above: Performed By: #### L 501.080 #### [facility] [address] [place], [address] RDW SD 50.1 fl High 35.1-43.[address] [facility] Comment on above: Performed By: #### L 501.080 #### [facility] [address] [place], [address] WBC (Bld) [#/Vol] 9.8 10*3/uL Normal 4.4-11.0 [facility] Comment on above: Performed By: #### L 501.080 #### [facility] [address] [place], [address] Comprehensive Metabolic Prof [facility] 10-08-2023 Albumin [Mass/Vol] 3.0 g/dL Low 3.2-5.0 [facility] Comment on above: Performed By: #### L 501.080 #### [facility] [address] [place], [address] Albumin/Globulin [Mass ratio] 0.9 {ratio} Normal 0.9-2.[address] [facility] Comment on above: Performed By: #### L 501.080 #### [facility] [address] [place], [address] ALK P 28 U/L Low 45-[address] [facility] Comment on above: Performed By: #### L 501.080 #### [facility] [address] [place], [address] ALT [Catalytic activity/Vol] 27 U/L Normal 16-[address] [facility] Comment on above: Performed By: #### L 501.080 #### [facility] [address] [place], [address] AST [Catalytic activity/Vol] 23 U/L Normal 15-[address] [facility] Comment on above: Performed By: #### L 501.080 #### [facility] [address] [place], [address] Bilirubin [Mass/Vol] 0.40 mg/dL Normal 0.20-1.00 [facility] Comment on above: Result Comment: For patients on eltrombopag therapy, use of Dimension [place] TBIL is not recommended. Performed By: #### L 501.080 #### [facility] [address] [place], [address] BUN/CRE 11.9 RATIO Normal 10-[address] [facility] Comment on above: Performed By: #### L 501.080 #### [facility] [address] [place], [address] CA,Total 9.0 mg/dL Normal 8.5-10.[address] [facility] Comment on above: Performed By: #### L 501.080 #### [facility] [address] [place], [address] Chloride [Moles/Vol] 108 mmol/L High 98-107 [facility] Comment on above: Performed By: #### L 501.080 #### [facility] [address] [place], [address] CO2 [Moles/Vol] 27.0 mmol/L Normal 21.0-32.[address] [facility] Comment on above: Performed By: #### L 501.080 #### [facility] [address] [place], [address] Creatinine [Mass/Vol] 1.94 mg/dL High 0.70-1.30 [facility] Comment on above: Result Comment: The validity of the calculated GFR GFRAA in patients over 70 years has not been determined. Clinical correlation is essential. Performed By: #### L 501.080 #### [facility] [address] [place], [address] ECRCL 34.18 ml/min Normal [facility] Comment on above: Performed By: #### L 501.080 #### [facility] [address] [place], [address] EST GFR - AA 42 mL/min Low >[address] [facility] Comment on above: Result Comment: Afri can Argentine GFR Calc Performed By: #### L 501.080 #### [facility] [address] [place], [address] GAP 6 Normal 5-[address] [facility] Comment on above: Performed By: #### L 501.080 #### [facility] [address] [place], [address] GFR/1.73 sq M.predicted among non-blacks MDRD (S/P/Bld) [Vol rate/Area] 35 mL/min/{1.73_m2} Low >[address] [facility] Comment on above: Result Comment: Non- GFR Calc Performed By: #### L 501.080 #### [facility] [address] [place], [address] Globulin (S) [Mass/Vol] 3.2 g/dL Normal 2.2-4.2 [facility] Comment on above: Performed By: #### L 501.080 #### [facility] [address] [place], [address] Glucose [Mass/Vol] 125 mg/dL High 74-106 [facility] Comment on above: Result Comment: Fast ing Glucose result from 100 to 125 mg/dL suggests IMPAIRED HOMEOSTASIS per A.D.A. criteria. Performed By: #### L 501.080 #### [facility] [address] [place], [address] Potassium [Moles/Vol] 4.2 mmol/L Normal 3.5-5.1 [facility] Comment on above: Performed By: #### L 501.080 #### [facility] [address] [place], [address] Sodium [Moles/Vol] 141 mmol/L Normal 136-145 [facility] Comment on above: Performed By: #### L 501.080 #### [facility] [address] [place], [address] T PROT 6.2 g/dL Low 6.4-8.[address] [facility] Comment on above: Performed By: #### L 501.080 #### [facility] [address] [place], [address] Urea nitrogen [Mass/Vol] 23 mg/dL High 7-[address] [facility] Comment on above: Performed By: #### L 501.080 #### [facility] [address] [place], [address] Magnesiumon 10-08-2023 Magnesium [Mass/Vol] 1.5 mg/dL Low 1.6-2.6 [facility] Comment on above: Performed By: #### L 501.080 #### [facility] [address] [place], [address] Phosphoruson 10-08-2023 Phosphate [Mass/Vol] 4.3 mg/dL Normal 2.5-4.9 [facility] Comment on above: Performed By: #### L 501.080 #### [facility] [address] [place], [place], [address] Thyroid Stim Hormone (TSH)on 10-08-2023 TSH 2.43 uIU/mL Normal 0.358-3.[address] [facility] Comment on above: Performed By: #### L 501.080 #### [facility] [address] [place], [address] 12 Lead EKGon 10-07-2023 12 Lead EKG [facility] Cardiovascular Services [address] [place] [address] 12 Lead EKG 10/07/23 1748 MR#: [id number] Acct: [id number] Name: JUAN M RODRIGUEZ Rep #: [id number] : 1935 87 From: David Carrizales MD Attending Dr: Dr. Wolfgang Cisneros, DO Status: A DM IN Ordering Dr: Radha Perez MD Date: 10/07/23 Location: [facility] Sex: M C Admitted: 10/07/23 Test Reason : GENERAL Blood Pressure : / mmHG Vent. Rate : 081 BPM Atrial Rate : 081 BPM P-R Int : 280 ms QRS Dur : 094 ms QT Int : 388 ms P-R-T Axes : 074 -49 066 degrees QTc Int : 450 ms Sinus rhythm with 1st degree A-V block Left anterior fascicular block Abnormal ECG Confirmed by DAVID CARRIZALES MD ([id number]), editor managing director MIGUEL ANGEL CHO ([id number]) on 10/09/2023 10:59:26 AM Referred By: Confirmed By:DAVID CARRIZALES MD 10/09/23 1059 Date David Carrizales MD CC: Dr. Taye Horan MD; Dr. Radha Perez MD; Dr. Wolfgang Cisneros, DO Signed Normal [facility] Abdomen/Pelvis without Conto n 10-07-2023 Abdomen/Pelvis without Cont [facility] Imaging Services [address] [place], [place] [address] Abdomen/Pelvis without Cont MR#: [id number] Acct: [id number] Name: JUAN M RODRIGUEZ Rep #: [id number] : 1935 M 87 From: Solo Anderson MD PCP: Dr. Taye Horan MD Status: REG ER Study: Abdomen/Pelvis without Cont Date of Exam: 09/18 Exam# [id number] Ordering Dr: Radha Perez MD [id number] STUDY: CT ABDOMEN AND PELVIS WITHOUT CONTRAST REASON FOR EXAM: Male, 87 years old. Right flank pain. RADIATION DOSAGE (If Supplied By Facility): CTDIvol = ( 13 ) mGy, DLP = ( 455 ) mGycm TECHNIQUE: Transaxial images were obtained from the dome of the diaphragm to the symphysis pubis without oral contrast, and without intravenous contrast. Sagittal and coronal images were reconstructed. Individualized dose optimization techniques were used for this CT. COMPARISON: No relevant prior comparison study available FINDINGS: Evaluation of the abdominal viscera is limited in the absence of intravenous contrast. LOWER THORAX: There is atelectasis at the lung bases. The visualized portions of the heart and pericardium are within normal limits. There are coronary artery calcifications. GALLBLADDER / BILE DUCTS: The patient is status post cholecystectomy. The common bile duct is normal in caliber. There are no calcified ductal stones. LIVER: The liver demonstrates an unremarkable unenhanced appearance. SPLEEN: The spleen is normal in size. PANCREAS: The pancreas demonstrates an unremarkable unenhanced appearance. ADRENAL GLANDS: The adrenal glands are within normal limits. KIDNEYS / BLADDER: There is a 5 mm stone in the right mid ureter and a 4 mm stone at the right ureterovesicular junction with mild right hydroureteronephrosis . There are bilateral subcentimeter nonobstructing renal collecting system stones. There are no left ureteral stones. There is no left hydronephrosis. There are no focal renal lesions identified on this noncontrast exam. The urinary bladder is partially distended and appears grossly unremarkable. STOMACH / BOWEL: Normal visualized stomach. There is no bowel obstruction or inflammation. There are colonic diverticula without evidence of diverticulitis. The appendix is visualized and appears normal. PERITONEUM / RETROPERITONEUM: There is no abdominal or pelvic free air, free fluid or fluid collection. There is no abnormal soft tissue mass identified. There is no abdominal or pelvic lymphadenopathy. VESSELS: There are atherosclerotic calcifications noted in the aorta and its branches. The aorta is normal in caliber. The IVC is unremarkable. BONES: There are no destructive osseous lesions. SOFT TISSUES: The visualized soft tissues are within normal limits. CT/Abdomen/Pelvis without Cont IMPRESSION: 5 mm stone in the right mid ureter and a 4 mm stone at the right ureterovesicular junction with mild right hydroureteronephrosis . Bilateral subcentimeter nonobstructing renal collecting system stones. No left ureteral stones. No left hydronephrosis. No bowel obstruction or inflammation. Normal appendix. Diverticulosis. Atherosclerosis and coronary artery disease. Electronically Signed: Solo Anderson MD at 16:16 EDT , CC: Dr. Taye Horan MD; Dr. Radha Perez MD Material Assembler: Signed Normal [facility] BNP,B-Type NATRIURETIC PEPTI Rhonda 10-07-2023 Natriuretic peptide B (Bld) [Mass/Vol] 60.8 pg/mL Normal 0-[address] [facility] Comment on above: Performed By: #### L 501.080 #### [facility] [address] [place], [address] Basic Metabolic Profile (BMP )on 10-07-2023 BUN/CRE 10.9 RATIO Normal -[address] [facility] Comment on above: Performed By: #### L 501.080 #### [facility] [address] [place], [address] CA,Total 9.7 mg/dL Normal 8.5-10.[address] [facility] Comment on above: Performed By: #### L 501.080 #### [facility] [address] [place], [address] Chloride [Moles/Vol] 104 mmol/L Normal 98-107 [facility] Comment on above: Performed By: #### L 501.080 #### [facility] [address] [place], [address] CO2 [Moles/Vol] 26.0 mmol/L Normal 21.0-32.[address] [facility] Comment on above: Performed By: #### L 501.080 #### [facility] [address] [place], [address] Creatinine [Mass/Vol] 1.84 mg/dL High 0.70-1.30 [facility] Comment on above: Result Comment: The validity of the calculated GFR GFRAA in patients over 70 years has not been determined. Clinical correlation is essential. Performed By: #### L 501.080 #### [facility] [address] [place], [address] EST GFR - AA 45 mL/min Low >[address] [facility] Comment on above: Result Comment: Afri can Argentine GFR Calc Performed By: #### L 501.080 #### [facility] [address] [place], [address] GAP 9 Normal 5-[address] [facility] Comment on above: Performed By: #### L 501.080 #### [facility] [address] [place], [address] GFR/1.73 sq M.predicted among non-blacks MDRD (S/P/Bld) [Vol rate/Area] 37 mL/min/{1.73_m2} Low >[address] [facility] Comment on above: Result Comment: Non- GFR Calc Performed By: #### L 501.080 #### [facility] [address] [place], [address] Glucose [Mass/Vol] 165 mg/dL High 74-106 [facility] Comment on above: Result Comment: Fast ing Glucose result greater than or equal to 126 mg/dL suggests DIABETES MELLITUS per A.D.A. criteria. Performed By: #### L 501.080 #### [facility] [address] [place], [address] Potassium [Moles/Vol] 4.1 mmol/L Normal 3.5-5.1 [facility] Comment on above: Performed By: #### L 501.080 #### [facility] [address] [place], [address] Sodium [Moles/Vol] 139 mmol/L Normal 136-145 [facility] Comment on above: Performed By: #### L 501.080 #### [facility] [address] [place], [address] Urea nitrogen [Mass/Vol] 20 mg/dL High 7-[address] [facility] Comment on above: Performed By: #### L 501.080 #### [facility] [address] [place], [address] Bedside Glucoseon 10-06-2023 FINGERSTICK GLU 156 mg/dL High 74-[address] [facility] Comment on above: Result Comment: FABIAN MAGAÑA OF PATIENT CARE PER NURSING PROTOCOL Performed By: #### L 501.080 ####[facility] [address] [place], [address] CBC W/Diff, Automatedon 07-2 0-2023 Absolute Lymph 2.06 X10 3/uL Normal 0.83-4.[address] [facility] Comment on above: Performed By: #### L 501.080 #### [facility] [address] [place], [address] Absolute Neut 11.0 X10 3/uL High 2.0-7.[address] [facility] Comment on above: Performed By: #### L 501.080 #### [facility] [address] [place], [address] Basophils/100 WBC (Bld) 0.2 % Normal 0-1 [facility] Comment on above: Performed By: #### L 501.080 #### [facility] [address] [place], [address] Eosinophils/100 WBC (Bld) 0.4 % Normal 0-[address] [facility] Comment on above: Performed By: #### L 501.080 #### [facility] [address] [place], [address] Erythrocyte distribution width (RBC) [Ratio] 16.1 % High 11.6-14.[address] [facility] Comment on above: Performed By: #### L 501.080 #### [facility] [address] [place], [address] Hematocrit (Bld) [Volume fraction] 36.8 % Low 40-[address] [facility] Comment on above: Performed By: #### L 501.080 #### [facility] [address] [place], [address] Hemoglobin (Bld) [Mass/Vol] 11.7 g/dL Low 13.0-16.[address] [facility] Comment on above: Performed By: #### L 501.080 #### [facility] [address] [place], [address] IG% 0.700 Normal 0.0-0.[address] [facility] Comment on above: Result Comment: IG% - Immature Granulocytes (promyelocytes, myelocytes and metamyelocytes) > 1% indicates that a LEFT SHIFT is Present. Performed By: #### L 501.080 #### [facility] [address] [place], [address] Lymphocytes/100 WBC (Bld) 14.8 % Low 19-[address] [facility] Comment on above: Performed By: #### L 501.080 #### [facility] [address] [place], [address] MCH (RBC) [Entitic mass] 26.2 pg Low 27.0-32.[address] [facility] Comment on above: Performed By: #### L 501.080 #### [facility] [address] [place], [address] MCHC (RBC) [Mass/Vol] 31.8 g/dL Low 32-36 [facility] Comment on above: Performed By: #### L 501.080 #### [facility] [address] [place], [address] MCV (RBC) [Entitic vol] 82.5 fL Normal 80-94 [facility] Comment on above: Performed By: #### L 501.080 #### [facility] [address] [place], [address] Monocytes/100 WBC (Bld) 5.3 % Normal 0-10 [facility] Comment on above: Performed By: #### L 501.080 #### [facility] [address] [place], [address] Neutrophils/100 WBC (Bld) 78.6 % High 47-[address] [facility] Comment on above: Performed By: #### L 501.080 #### [facility] [address] [place], [address] Nucleated RBC (Bld) [#/Vol] 0 10*3/uL Normal 0-[address] [facility] Comment on above: Performed By: #### L 501.080 #### [facility] [address] [place], [address] Platelet mean volume (Bld) [Entitic vol] 10.4 fL Normal 6.2-12.[address] [facility] Comment on above: Performed By: #### L 501.080 #### [facility] [address] [place], [address] Platelets (Bld) [#/Vol] 408 10*3/uL Normal 150-[address] [facility] Comment on above: Performed By: #### L 501.080 #### [facility] [address] [place], [address] RBC (Bld) [#/Vol] 4.46 10*6/uL Low 4.6-6.2 [facility] Comment on above: Performed By: #### L 501.080 #### [facility] [address] [place], [address] RDW SD 48.7 fl High 35.1-43.[address] [facility] Comment on above: Performed By: #### L 501.080 #### [facility] [address] [place], [address] WBC (Bld) [#/Vol] 14.0 10*3/uL High 4.4-11.0 [facility] Comment on above: Performed By: #### L 501.080 #### [facility] [address] [place], [address] CTA Chest W/WO Contraston CTA Chest W/WO Contrast [facility] Imaging Services [address] [place] [address] CTA Chest W/WO Contrast MR#: [id number] Acct: [id number] Name: JUAN M RODRIGUEZ W Rep #: [id number] : 1935 M 87 From: Solo Anderson MD PCP: Dr. Taye Horan MD Status: REG ER Study: CTA Chest W/WO Contrast Date of Exam: 10/07/23 Exam# [id number] Ordering Dr: Radha Perez MD [id number] STUDY: CTA CHEST WITH CONTRAST REASON FOR EXAM: Male, 87 years old. Hypoxia RADIATION DOSAGE (If Supplied By Facility): CTDIvol = ( 12.34 ) mGy, DLP = ( 461.09 ) mGycm TECHNIQUE: Transaxial imaging was performed following intravenous administration of 100 ml of Isovue-370 contrast material. Coronal and sagittal reformatted images were created. 3D post processed images were created. Individualized dose optimization techniques were used for this CT. COMPARISON: No relevant prior comparison study available FINDINGS: LUNGS: There are no pulmonary infiltrates. There is atelectasis at the lung bases. PLEURAL SPACE: There are no pleural effusions. There is no pneumothorax. MEDIASTINUM: The heart and pericardium are within normal limits. There are coronary artery calcifications. There is no pneumomediastinum. There is no thoracic lymphadenopathy. VESSELS There is no pulmonary embolus. The pulmonary artery is normal in caliber. There is no thoracic aortic aneurysm or dissection. UPPER ABDOMEN: There is elevation of the right hemidiaphragm. BONES: There are no destructive osseous lesions. SOFT TISSUES: The visualized soft tissues are unremarkable. CT/CTA Chest W/WO Contrast IMPRESSION: No pulmonary embolus. No thoracic aortic aneurysm or dissection. Coronary artery disease. No pulmonary infiltrates or pleural effusions. Elevation of the right hemidiaphragm. Bibasilar atelectasis Electronically Signed: Solo Anderson MD at 15:27 EDT , CC: Dr. Taye Horan MD; Dr. Radha Perez MD Material Assembler: Signed Normal [facility] Echo Completeon 10-07-2023 Echo Complete [facility] Cardiovascular [place] [address] Echo Complete 10/09/23 1041 MR#: [id number] Acct: [id number] Name: JUAN M RODRIGUEZ Rep #: [id number] : 1935 87 From: David Carrizales MD Attending Dr: Dr. Wolfgang Cisneros DO Status: A DM IN Ordering Dr: Leyla Do DO Date: 10/07/23 Location: [facility] Sex: M C Admitted: 10/07/23 Reason For Study: Hypoxia Procedure This was a 2D Doppler, Color Flow transthoracic echocardiogram. Exam performed portable in patient room. Left Ventricle Normal LV size. Moderate concentric left ventricular hypertrophy. Left ventricular systolic function is normal. The estimated ejection fraction is 60 %. Stage 1 diastolic dysfunction. No regional wall motion abnormalities noted. Right Ventricle Normal RV size. Normal systolic function. Atria Normal left atrium. Normal right atrium. Mitral Valve Normal mitral valve. Mild (1+) eccentric mitral valve insufficiency. Tricuspid Valve Normal tricuspid valve. Mild (1+) tricuspid valve insufficiency. Pulmonary artery systolic pressure is 30 mmHg. Aortic Valve Trisinus/trileaflet aortic valve. Trivial aortic valve insufficiency. Great Vessels Normal aortic root. The pulmonary artery is normal size. Normal inferior vena cava. Pericardium/Pleural No pericardial effusion. MMode/2D Measurements Calculations LVIDd: 4.5 cm IVSd: 1.7 cm LVOT diam: 2.3 cm LVIDs: 2.4 cm LVPWd: 1.3 cm LVOT area: 4.0 cm2 RVDd: 3.8 cm FS: 45.7 % Ao root diam: 3.4 cm LAV(MOD-bp): 50.6 ml LVAd ap4: 28.3 cm2 LAV(MOD-bp) Indexed: 22.3 ml/m2 LVLd ap4: 7.8 cm LAV(MOD-sp2): 48.8 ml EDV(MOD-sp4): 87.5 ml LAV(MOD-sp4): 52.7 ml EDV(sp4-el): 86.7 ml LVAs ap4: 13.3 cm2 LVLs ap4: 6.3 cm ESV(MOD-sp4): 26.2 ml ESV(sp4-el): 24.1 ml EF(MOD-sp4): 70.1 % EF(sp4-el): 72.2 % SV(MOD-sp4): 61.3 ml SV(MOD-sp2): 36.9 ml LVAd ap2: 25.5 cm2 LVLd ap2: 8.1 cm EDV(MOD-sp2): 71.3 ml EDV(sp2-el): 67.5 ml LVAs ap2: 16.2 cm2 LVLs ap2: 7.0 cm ESV(MOD-sp2): 34.4 ml ESV(sp2-el): 32.1 ml EF(MOD-sp2): 51.7 % SV(sp4-el): 62.6 ml LA A4 area: 18.9 cm2 LA dimension(2D): 3.5 cm TAPSE: 1.9 cm RA A4 area: 14.2 cm2 Time Measurements MV dec time: 0.26 sec Doppler Measurements Calculations MV E max ilana: 66.4 cm/sec Lat Peak E' Ilana: 7.3 cm/sec Med Peak E' Ilana: 7.2 cm/sec MV A max ilana: 71.1 cm/sec E/E' lat: 9.1 E/E' med: 9.2 MV E/A: 0.93 MV dec slope: 255.3 cm/sec2 Ao V2 max: 145.8 cm/sec AI max ilana: 362.6 cm/sec Ao max P.5 mmHg AI max P.0 mmHg MIGDALIA(V,D): 2.5 cm2 AI dec slope: 184.7 cm/sec2 AI P1/2t: 575.1 msec LV V1 max: 92.5 cm/sec PA V2 max: 68.8 cm/sec TR max ilana: 255.8 cm/sec LV V1 max P.4 mmHg TR max P.2 mmHg ECHO/Echo Complete Interpretation Summary Normal LV size. Left ventricular systolic function is normal. The estimated ejection fraction is 60 %. Moderate concentric left ventricular hypertrophy. Stage 1 diastolic dysfunction. Ordering Physician: Leyla Do Referring Physician: Taye Horan Performed By: Stefanie Guan RDCS and Student 10/09/23 1429 Date David Carrizales MD CC: Dr. Taye Horan MD; Dr. Leyla Do DO; Dr. Wolfgang Cisneros DO Date Dictated: 10/09/23 1041 Date Transcribed: 10/09/23 1429 Material Assembler: Signed Normal [facility] Emergency Department Summary on 10-07-2023 Emergency Department Summary [facility] Medical Records Department [address] [place] [address] Emergency Department Summary 10/07/23 MR#: [id number] Acct: [id number] Name: JUAN M RODRIGUEZ Rep #: [id number] : 1935 87 From: Radha Perez MD PCP: Dr. Taye Horan MD Status:[facility] ER Location: ED HPI History of Present Illness Chief Complaint: Flank Pain Informant: patient Onset/Context/Timing Onset: Days (3 days) Context: Gradual Onset Current Severity: Mild Maximum Severity: Mild Narrative Narrative: Patient presents with a 3-day history of right lateral abdominal pain at the waist area. He states his urine stream is not strong as it used to be, but he does not have any dysuria. He feels that he is emptying his bladder. Patient is nauseated but has not been vomiting. He has not measured a fever. [facility] Medical History COVID-19 Sepsis Hypomagnesemia History of colon polyps CKD (chronic kidney disease) Benign prostatic hyperplasia Anemia Acute pancreatitis Kidney stones Dyslipidemia Nausea Diarrhea GERD (gastroesophageal reflux disease) High cholesterol HTN (hypertension) Diabetes Home Medications ???Medication ???Instructions ???Recorded ???Last Taken ???Type aspirin 81 mg tablet,delayed 81 mg PO DAILY 05/17/20 Unknown History release fenofibrate micronized 200 mg 200 mg PO DAILY 05/17/20 Unknown History capsule ferrous sulfate 325 mg (65 mg 325 mg PO DAILY@0800 05/17/20 Unknown History iron) tablet glimepiride 1 mg tablet 1 mg PO BID 05/17/20 Unknown History insulin aspart U-100 100 unit/mL 6 unit SQ TID 05/17/20 Unknown History subcutaneous solution insulin glargine 100 unit/mL (3 30 unit SQ QHS 05/17/20 Unknown History mL) subcutaneous pen lovastatin 20 mg tablet 20 mg PO DAILY 05/17/20 Unknown History metformin 1,000 mg tablet 1,000 mg PO BID 05/17/20 Unknown History omeprazole 20 mg tablet,delayed 40 mg PO DAILY 05/17/20 Unknown History release amlodipine 5 mg tablet 5 mg PO DAILY 06/17/21 Unknown History erythromycin 5 mg/gram (0.5 %) eye 1 applic RIGHT EYE Q6H 5 days #3.5 09/17/22 Unknown Rx ointment grams benzonatate 200 mg capsule 200 mg PO TID PRN cough #20 caps 10/24/22 Unknown Rx azithromycin 250 mg tablet See Rx Instructions PO .COMPLEX #6 01/12/23 Unknown Rx tabs Allergy/AdvReac Type Severity Reaction Status Date / Time hydromorphone (From Dilaudid) Allergy NEEDS Verified 10/07/23 13:51 FOLLOW-UP lisinopril Allergy Angioedema Verified 10/07/23 13:51 Penicillins Allergy Rash Verified 10/07/23 13:51 Family History Father Hypertension TIA (transient ischemic attack) Sister CAD (coronary artery disease) Diabetes COPD (chronic obstructive pulmonary disease) Lung cancer Surgical History H/O inguinal hernia repair History of cholecystectomy Social History Smoking Status: Current every day smoker tobacco type: cigars alcohol intake: current ROS ROS ED Constitutional Constitutional ED: Denies chills or fever(s) Eyes Eyes: Denies change in vision or discharge from eye(s) ENT ENT ED: Denies discharge from eye(s), rhinorrhea or sore throat Cardiovascular Cardiovascular: Denies chest pain or palpitations Respiratory/Chest Respiratory/Chest: Reports cough; Denies dyspnea Gastrointestinal Gastrointestinal: Reports abdominal pain and nausea; Denies diarrhea or vomiting Genitourinary Genitourinary ED: Denies dysuria or hematuria Musculoskeletal Musculoskeletal: Reports back pain; Denies extremity pain Integumentary Denies Abrasions or rash Neurologic Neurologic: Denies headache(s) or weakness Psychiatric Psychiatric: Denies anxiety or depression Allergic/Immunologic Allergic/Immunologic ED: Denies lip swelling or urticaria EXAM Physical Exam Const Vital Signs: 10/07/23 13:52 10/07/23 14:25 10/07/23 14:31 Temperature 98.3 F Temperature Source Temporal Pulse Rate 79 Respiratory Rate 14 Respiratory Pattern Blood Pressure 170/77 H Blood Pressure Mean 108 Pulse Ox 93 82 94 Oxygen Delivery Method Room Air Room Air Nasal Cannula Oxygen Flow Rate (L/min) 2 10/07/23 15:15 10/07/23 15:30 10/07/23 15:45 Temperature Temperature Source Pulse Rate 87 83 82 Respiratory Rate 19 H 16 25 H Respiratory Pattern Blood Pressure 171/70 H Blood Pressure Mean 103 Pulse Ox 94 97 Oxygen Delivery Method Oxygen Flow Rate (L/min) 10/07/23 16:55 10/07/23 16:56 10/07/23 17:38 Temperature Temperature Source Pulse Rate 86 85 Respirat (more content not included)... Normal [facility] H AND P Exam - [facility] 10-07-2023 H&P Exam - Hospitalist [facility] Medical Records Department [address] [place] [address] H P Exam - Hospitalist 10/07/231911 MR#: [id number] Acct: [id number] Name: JUAN M RODRIGUEZ Rep #: [id number] : 1935 87 From: Leyla Do DO PCP: Dr. Taye Horan MD Status:ADM IN Location: [address] HPI - General General Date of Admission: 10/07/23 Date of Service: 10/07/23 Chief Complaint: Nausea/flank pain HPI Narrative JUAN M RODRIGUEZ, is a 87 M who presented to the emergency department at [facility] with right-sided flank pain that had started about 3 days previously. He stated it started in the right lateral abdominal area and came around to the anterior waist area. He reported his urine stream was not as strong as it typically is but denied any specific dysuria. He does feel that he is emptying his bladder completely and he has been nauseated and dry heaving but not having any vomiting. He states he had about 5 episodes of dry heaves today and his p.o. intake has been poor. He has not had any known fever or chills. He does have a history of pancreatitis and nephrolithiasis. He denies any epigastric pain or pain that radiated to his central back. He denies any specific shortness of breath. States he has a chronic cough that comes and goes but no sputum production and complains of intermittent fatigue due to advancing age but he states his fatigue is now worse in the last couple weeks that is at baseline. His bowels have been normal. He has had previous cholecystectomy. He does admit to tobacco abuse and states he smokes 1 cigar daily. Patient reports at baseline his oxygen saturation is about 93% on room air at rest when he checks himself at home. He does not wear supplemental oxygen at baseline and does not see pulmonary medicine for anything. Vital signs on presentation showed a temperature of 98.3, heart rate 79, respiratory was 14, blood pressure was 170/77 and pulse ox was 82% on room air. He was placed on 2 L nasal cannula with improvement to his oxygen saturation up to 94%. His CBC shows a mild leukocytosis with a white count of 14.0. His hemoglobin is 11.7. He does have a left shift with 78.6% neutrophilia. His serum electrolytes are normal on BMP however his BUN and creatinine are elevated at 20 and 1.84. Baseline is unknown. Blood glucose is 165 and this is nonfasting. Liver functions are pending. Troponin was 16 and BNP was 60.8. No previous have been performed. His UA shows small amount of protein, small amount of glucose, and 25 of occult blood but was otherwise unremarkable and no consistency with infection. CT of the abdomen pelvis shows a 5 mm stone in the right mid ureter and a 4 mm stone in the right ureterovesical junction with mild right hydronephrosis and bilateral subcentimeter nonobstructing renal collecting system stones with no left-sided ureteral stones or left hydronephrosis. No abnormality is noted in the bowel he is noted to have atherosclerosis and coronary artery disease. CTA of the chest was performed given his hypoxia. This showed no pulmonary emboli, no thoracic aneurysm or dissection, coronary artery disease but no pulmonary infiltrates or pleural effusions. He does have elevation of right hemidiaphragm with basilar atelectasis. On my personal review he does appear to have some patchy groundglass changes and bronchiectasis. COVID-19, flu, RSV PCR pending. The original intention was to send him home and have him follow-up with urology however with his new hypoxia and not having oxygen at home admission was felt to be required. [facility] Medical History (Updated 10/07/23 @ 19:[address] Leyla Do, DO) First degree heart block COVID-19 Sepsis Hypomagnesemia History of colon polyps CKD (chronic kidney disease) Benign prostatic hyperplasia Anemia Acute pancreatitis Kidney stones Dyslipidemia Nausea Diarrhea GERD (gastroesophageal reflux disease) High cholesterol HTN (hypertension) Diabetes Home Medications ???Medication ???Instructions ???Recorded ???Last Taken ???Type aspirin 81 mg tablet,delayed 81 mg PO DAILY 05/17/20 Unknown History release ferrous sulfate 325 mg (65 mg 325 mg PO DAILY@0800 05/17/20 Unknown History iron) tablet glimepiride 1 mg tablet 1 mg PO BID 05/17/20 Unknown History insulin aspart U-100 100 unit/mL 6 unit SQ TID 05/17/20 Unknown History subcutaneous solution insulin glargine 100 unit/mL (3 30 unit SQ QHS 05/17/20 Unknown History mL) subcutaneous pen lovastatin 20 mg tablet 20 mg PO DAILY 05/17/20 Unknown History metformin 1,000 mg tablet 1,000 mg PO BID 05/17/20 Unknown History omeprazole 20 mg tablet,delayed 40 mg PO DAILY 05/17/20 Unknown History release amlodipine 5 mg tablet 5 mg PO DAILY 06/17/21 Unknown History Allergy/AdvReac Type Severity Reaction Status Date / Time (more content not included)... Normal [facility] L501.4020on 10-07-2023 TROPONIN-I HS 16 pg/mL Normal 3.0-78.[address] [facility] Comment on above: Order Comment: 'TROP ' Serial specimen #1, #2 or #3: 1 Result Comment: Mao mitchell Note: New Test Units and Gender Specific Reference Ranges. For more information see Policy Stat Procedure [place] High Sensitivity Troponin (TNIH) and attachments. Performed By: #### L 501.080 #### [facility] [address] [place], [address] Liver Profileon 10-07-2023 Albumin [Mass/Vol] 2.4 g/dL Low 3.2-5.0 [facility] Comment on above: Performed By: #### L 500.3400 ####[facility] [address] [place], [address] ALK P 23 U/L Low 45-[address] [facility] Comment on above: Performed By: #### L 500.3400 ####[facility] [address] [place], [address] ALT [Catalytic activity/Vol] 24 U/L Normal 16-[address] [facility] Comment on above: Performed By: #### L 500.3400 ####[facility] [address] [place], [address] AST [Catalytic activity/Vol] 20 U/L Normal 15-[address] [facility] Comment on above: Performed By: #### L 500.3400 ####[facility] [address] [place], [address] Bilirubin [Mass/Vol] 0.30 mg/dL Normal 0.20-1.00 [facility] Comment on above: Result Comment: For patients on eltrombopag therapy, use of Dimension [place] TBIL is not recommended. Performed By: #### L 500.3400 ####[facility] [address] [place], [address] Bilirubin.direct [Mass/Vol] 0.14 mg/dL Normal 0.00-0.[address] [facility] Comment on above: Performed By: #### L 500.3400 ####[facility] [address] [place], [address] Globulin (S) [Mass/Vol] 2.6 g/dL Normal 2.2-4.2 [facility] Comment on above: Performed By: #### L 500.3400 ####[facility] [address] [place], [address] T PROT 5.0 g/dL Low 6.4-8.[address] [facility] Comment on above: Performed By: #### L 500.3400 ####[facility] [address] [place], [address] M100.678on 10-07-2023 M100.678 SARS-CoV-2 (COVID 19 ) Negative INFLUENZA A Negative INFLUENZA B Negative RSV PCR Negative Normal [facility] Comment on above: Performed By: #### M 100.678 ####[facility] [address] [place], [address] Urinalysis, Completeon 10-06 WBC 0-5 SEEN Normal 0-[address] [facility] Comment on above: Order Comment: CLEAN CATCH Performed By: #### L 400.0001 #### [facility] [address] [place], [address] BACTERIA RARE Normal None Seen [facility] Comment on above: Order Comment: CLEAN CATCH Performed By: #### L 400.0001 #### [facility] [address] [place], [address] EPI,SQUAMOUS 0 SEEN Normal 0-[address] [facility] Comment on above: Order Comment: CLEAN CATCH Performed By: #### L 400.0001 #### [facility] [address] [place], [address] Mucus Ql (Urine sed) [address] [facility] Comment on above: Order Comment: CLEAN CATCH Performed By: #### L 400.0001 #### [facility] [address] [place], [address] RBC 0 SEEN Normal 0-[address] [facility] Comment on above: Order Comment: CLEAN CATCH Performed By: #### L 400.0001 #### [facility] [address] [place], [address] METER GLUCOSEon 06-28-2021 Glucose [Mass/Vol] 127 mg/dL High 74-99 [facility] POCT Glucoseon 06-28-2021 Glucose [Mass/Vol] 127 mg/dL High 74 - 99 mg/dL [facility] Interpretation and review of laboratory results Abnormal [facility] Absolute lymphocyte counton 06-17-2021 Lymphocytes Auto (Unsp spec) [#/Vol] 2.09 10*3/uL 0.83-4.[address] [facility] Work Phone: Basophil percentageon 2021 Basophil percentage 10-25 SEEN /hpf [facility] Work Phone: Basophils/100 WBC (Bld) 0.4 % 0-1 [facility] Work Phone: Chloride [Moles/Vol] 105 mmol/L 98-107 [facility] Work Phone: Eosinophils/100 WBC (Bld) 1.7 % 0-[address] [facility] Work Phone: Glucose [Mass/Vol] 89 mg/dL 74-106 [facility] Work Phone: Neutrophils (Bld) [#/Vol] 7.9 10*3/uL 2.0-7.[address] [facility] Work Phone: Neutrophils/100 WBC (Bld) 71.4 % 47-[address] [facility] Work Phone: Potassium [Moles/Vol] 3.9 mmol/L 3.5-5.1 [facility] Work Phone: [phone] Sodium [Moles/Vol] 137 mmol/L 136-145 [facility] Work Phone: [phone] WBC (Bld) [#/Vol] 11.1 10*3/uL 4.4-11.0 [facility] Work Phone: [phone] Bilirubin Test strip Ql (U)o n 06-17-2021 Bilirubin Ql (U) Negative Negative [facility] Work Phone: [phone] Blood erythrocytes count (nu mber/volume)on 06-17-2021 RBC (Bld) [#/Vol] 4.52 10*6/uL 4.6-6.2 [facility] Work Phone: [phone] Blood hemoglobin measurement (mass/volume)on 06-17-2021 Hemoglobin (Bld) [Mass/Vol] 12.1 g/dL 13.0-16.[address] [facility] Work Phone: [phone] Blood lymphocytes/100 leukoc yteson 06-17-2021 Lymphocytes/100 WBC (Bld) 18.8 % 19-[address] [facility] Work Phone: [phone] Blood monocytes/100 leukocyt eson 06-17-2021 Monocytes/100 WBC (Bld) 7.0 % 0-10 [facility] Work Phone: [phone] Blood platelet mean volumeon 06-17-2021 Platelet mean volume (Bld) [Entitic vol] 11.0 fL 6.2-12.[address] [facility] Work Phone: [phone] Determination of erythrocyte mean corpuscular volume (MCV)on 06-17-2021 MCV (RBC) [Entitic vol] 82.7 fL 80-94 [facility] Work Phone: [phone] Hematocrit Auto (Bld) [Volum e fraction]on 06-17-2021 Hematocrit (Bld) [Volume fraction] 37.4 % 40-[address] [facility] Work Phone: Ketones Test strip Ql (U)on 06-17-2021 Ketones Ql (U) Negative Negative [facility] Work Phone: [phone] Laboratory - Chemistry and C hemistry - challengeon 06-17-2021 CO2 [Moles/Vol] 27.0 mmol/L 21.0-32.[address] [facility] Work Phone: [phone] Urea nitrogen/Creatinine [Mass ratio] 12.2 mg/mg 10-[address] [facility] Work Phone: [phone] Laboratory - Hematology and Cell countson 06-17-2021 Erythrocyte distribution width (RBC) [Entitic vol] 47.9 fL 35.1-43.[address] [facility] Work Phone: [phone] Erythrocyte distribution width (RBC) [Ratio] 15.9 % 11.6-14.[address] [facility] Work Phone: [phone] Immature granulocytes/100 WBC (Bld) 0.700 % 0.0-0.[address] [facility] Work Phone: [phone] Comment on above: IG% - Immature Granu locytes (promyelocytes, myelocytes and metamyelocytes) > 1% indicates that a LEFT SHIFT is Present. MCH (RBC) [Entitic mass] 26.8 pg 27.0-32.[address] [facility] Work Phone: [phone] Nucleated RBC/100 WBC (Bld) [Ratio] 0 % 0-[address] [facility] Work Phone: [phone] MCHC Auto (RBC) [Mass/Vol]on 06-17-2021 MCHC (RBC) [Mass/Vol] 32.4 g/dL 32-36 [facility] Work Phone: [phone] Mucus LM Ql (Urine sed)on Mucus Ql (Urine sed) 0 SEEN /hpf [facility] Work Phone: [phone] Nitrite Test strip Ql (U)on 06-17-2021 Nitrite Ql (U) Positive Negative [facility] Work Phone: [phone] No Panel Informationon 06-17 Estimated Creatinine Clearance Calc 50.52 ml/min [facility] Work Phone: [phone] Estimated GFR (MDRD) Amer 72 mL/min >[address] [facility] Work Phone: Comment on above: GFR Calc Estimated GFR (MDRD) Non-Af Amer 60 mL/min >[address] [facility] Work Phone: Comment on above: Non- GFR Calc Platelets bldon 06-17-2021 Platelets (Bld) [#/Vol] 344 10*3/uL 150-[address] [facility] Work Phone: [phone] Protein Test strip Ql (U)on 06-17-2021 Protein Ql (U) 15 mg/dl Negative [facility] Work Phone: [phone] Serum or plasma calcium alisa urement (mass/volume)on 06-17-2021 Calcium [Mass/Vol] 8.8 mg/dL 8.5-10.1 [facility] Work Phone: [phone] Serum or plasma creatinine m easurement (mass/volume)on 06-17-2021 Creatinine [Mass/Vol] 1.23 mg/dL 0.70-1.30 [facility] Work Phone: Comment on above: The validity of the calculated GFR & GFRAA in patients over 70 years has not been determined. Clinical correlation is essential. Serum or plasma urea nitroge n measurement (mass/volume)on 06-17-2021 Urea nitrogen [Mass/Vol] 15 mg/dL 7-[address] [facility] Work Phone: [phone] Squamous epithelial cells de tection in urine sediment by light microscopyon 06-17-2021 Epithelial cells.squamous LM Ql (Urine sed) 0 SEEN /hpf [facility] Work Phone: [phone] Thin prep Papanicolaou smear with manual screeningon 06-17-2021 Thin prep Papanicolaou smear with manual screening 5 5-[address] [facility] Work Phone: [phone] Urine blood detectionon 05-20 RBC Ql (U) 25 /ul Negative [facility] Work Phone: [phone] RBC Ql (U) 0 SEEN /hpf [facility] Work Phone: [phone] Urine clarityon 06-17-2021 Clarity (U) Clear Clear [facility] Work Phone: Urine color determinationon 06-17-2021 Color (U) Yellow Yellow [facility] Work Phone: Urine glucose detectionon Glucose Ql (U) Normal mg/dl Normal [facility] Work Phone: Urine leukocyte esterase det ection by dipstickon 06-17-2021 Leukocyte esterase Test strip Ql (U) 500 /ul Negative [facility] Work Phone: Urine pHon 06-17-2021 pH (U) 6.0 [pH] [facility] Work Phone: Urine sediment bacteria coun t by microscopy (number/high power field)on 06-17-2021 Bacteria LM.HPF (Urine sed) [#/Area] 2 /[HPF] None Seen [facility] Work Phone: Urine specific gravity measu rementon 06-17-2021 Specific gravity (U) [Rel density] 1.[address] [facility] Work Phone: Urobilinogen Auto test strip Ql (U)on 06-17-2021 Urobilinogen Ql (U) Normal mg/dl Normal [facility] Work Phone: ANES POSTPROC EVALon 021 ANES POSTPROC EVAL HNO ID: [id number] Author: Troy Melo Service: Anesthesiology Author Type: Physician Type: Anesthesia Postprocedure Evaluation Filed: 06/23/2020 2:23 PM Note Text: POST ANESTHESIA EVALUATION NOTE : 1935 Procedure Summary Date: 06/23/20 Room / [facility]: [facility] Anesthesia Start: 1300 Anesthesia Stop: 1353 Procedure: ENDOSCOPY UPPER GI W/ ENDOSCOPIC ULTRASOUND EXAMINATION, (Left Abdomen) Diagnosis: Idiopathic acute pancreatitis, unspecified complication status Surgeons: Sadi Ramon Responsible Provider: Troy Melo Anesthesia Type: MAC ASA Status: 3 Anesthesia Type: MAC Last vitals Vitals Value Taken Time BP 131/75 06/23/20 1408 Temp 36.2 ?C (97.1 ?F) 06/23/20 1351 Pulse 74 06/23/20 1408 Resp 16 06/23/20 1408 SpO2 96 % 06/23/20 1408 Post Anesthesia Patient Status Anticipated Disposition: phase 2 then home. Neurological Status: aware and responsive. Pulmonary Status: breathing comfortably on room air Airway Control: returned to baseline unsupported. Cardiovascular Status: stable. Pain Management: clinically adequate Postoperative Hydration: acceptable. Intraoperative Events: no significant anesthesia events Post Operative Nausea/Vomiting Status: no significant post operative nausea or vomiting Anesthetic Observations: No complications documented. SIGNATURE: Troy Melo MD PATIENT NAME: Juan M Rodriguez DATE: June 23, 2020 TIME: 2:23 PM CSN: [id number] [facility] ANES PRE-OPon 06-23-2020 ANES PRE-OP HNO ID: [id number] Author: Troy Melo Service: Anesthesiology Author Type: Physician Type: Anesthesia Preprocedure Evaluation Filed: 06/23/2020 11:53 AM Note Text: ANESTHESIOLOGY DAY OF SURGERY NOTE : 1935 Procedure(s) (LRB): ENDOSCOPY UPPER GI W/ ENDOSCOPIC ULTRASOUND EXAMINATION, (Left) Surgeon(s): Sadi Ramon Estimated body mass index is 30.11 kg/m? as calculated from the following: Height as of this encounter: 188 cm (6' 2). Weight as of 06/02/20: 106.4 kg (234 lb 8 oz). Most recent hematocrit and potassium results: HEMATOCRIT 40.4 06/15/2020 K 4.2 06/15/2020 Relevant Problems CARDIO (+) Essential hypertension ENDO (+) Type 2 diabetes mellitus with stage 3 chronic kidney disease, with long-term current use of insulin (HCC) GI (+) GERD without esophagitis -RENAL (+) CKD (chronic kidney disease) stage 3, GFR 30-59 ml/min (HCC) (+) Hypertensive chronic kidney disease with stage 1 through stage 4 chronic kidney disease, or unspecified chronic kidney disease NEURO-PSYCH (+) History of colonic polyps (+) History of kidney stones I - PHYSICAL EVALUATION AIRWAY Patient intubated: No. Tracheostomy tube not present Mallampati: II. TM distance: >3 FB. Neck ROM: full ROM without neurological symptoms. Mouth opening: adequate. Short neck: no. Thick neck: no DENTAL Dental findings: chipped. Additional exam findings: no II - ANESTHESIA PLAN ASA Score: 3 Anesthetic Plan: MAC Anesthetic plan additional comments: States sats always run 93% RA. 40+yrs/1 cigar per day. No CP/SOB.. The patient is a current smoker. NPO Status: adequate Monitoring plan: standard ASA. Postoperative analgesic plan: parenteral or oral opioids. Anesthetic Risks, Benefits, Alternatives, Personnel Discussed. Consent obtained from: patient.Patient / Surrogate agrees to blood products: blood products not planned Significant changes in the patient condition since the History and Physical, not otherwise documented in primary service progress note: no. Potential Anesthesia issues that may suggest increased risk of complications or contraindication to planned procedure: none. Vitals Value Taken Time BP 146/88 06/23/20 1108 Pulse 80 06/23/20 1108 Resp 18 06/23/20 1108 Temp 36.6 ?C (97.9 ?F) 06/23/20 1108 SpO2 94 % 06/23/20 1108 Facility-Administered Medications as of 06/23/2020 Medication Dose Route Frequency - lidocaine 10 mg/mL (1 %) 1-2 mg injection (XYLOCAINE) 0.1-0.2 mL INTRADERMAL PRN - lactated ringers iv infusion 5-30 mL/hr INTRAVENOUS CONTINUOUS - NaCl 0.9% iv infusion 5-30 mL/hr INTRAVENOUS CONTINUOUS Outpatient Medications as of 06/23/2020 Medication Sig - cyanocobalamin (VITAMIN B-12) 500 mcg tablet Take 1 tablet by mouth once daily. - insulin aspart U-100 (NOVOLOG FLEXPEN U-100 INSULIN) 100 unit/mL (3 mL) Inject 6 Units subcutaneously three times daily before meals. - omeprazole (PRILOSEC) 20 mg capsule Take 1 capsule by mouth daily before breakfast. 1/2 hr before meal. - metFORMIN (GLUCOPHAGE) 1,000 mg tablet Take 1 tablet by mouth twice daily with meals. - lovastatin (MEVACOR) 20 mg tablet Take 1 tablet by mouth daily at bedtime. - insulin glargine (BASAGLAR KWIKPEN U-100 INSULIN) 100 unit/mL (3 mL) Inject 30 Units subcutaneously daily at bedtime. - glimepiride (AMARYL) 1 mg tablet Take 1 tablet by mouth twice daily. - fenofibrate (LOFIBRA) 200 mg capsule Take 1 capsule by mouth daily before breakfast. - ferrous sulfate 325 mg (65 mg iron) tablet Take 325 mg by mouth daily with breakfast. - aspirin, enteric coated (ASPIR-81) 81 mg ORAL EC tablet Take 1 tablet by mouth once daily. - blood sugar diagnostic (CONTOUR TEST STRIPS) test strip Test blood sugar(s) 4 times daily. Dx: Type 2 DM - Controlled E11.9 Insulin: Yes - Lancets (MICROLET LANCET) lancets 1 Each four times daily. Dx: Type 2 DM - Controlled E11.9 Insulin: Yes - Insulin [place], Disposable, (SURE COMFORT PEN NEEDLE) 32 gauge x 5/32 1 Each four times daily. I have interviewed and examined the patient. I have reviewed the medical record and/or the pre-anesthesia evaluation, pertinent labs, and test results. This contains updated information obtained within 48 hours of Surgery/Procedure. SIGNATURE: Troy Melo MD PATIENT NAME: Juan M Rodriguez DATE: June 23, 2020 TIME: 11:23 AM CSN: [id number] [facility] OPERATIVE NOon 06-23-2020 OPERATIVE NO HNO ID: [id number] Author: Sadi Ramon Service: Gastroenterology Author Type: Physician Type: Operative Report Filed: 06/23/2020 1:50 PM Note Text: OPERATIVE/PROCEDURE REPORT LOG ID: [id number] Surgery/Procedure Date: 06/23/2020 Incision/Procedure Start Time: 1:09 PM Incision Close/Procedure End Time: 1:40 PM Surgeon(s)/Procedural ist(s) and Care Services Manager(s): Surgeon(s) and Role: * Sadi Ramon - Primary No Additional Staff Procedure(s): Esophagogastroduodeno scopy (EGD) Upper Endoscopic Ultrasound (EUS) Anesthesia: Monitored Anesthesia Care Brief History: Mr Juan M Rodriguez is here for EUS to evaluate an episode of acute idiopathic pancreatitis. Procedure Details: The patient was placed in the left lateral decubitus position. A bite block was placed and medications administered as above. The Olympus gastroscope was used to intubate the oropharynx and esophagus with ease. We proceeded down to the second part of the duodenum. Duodenum: Mucosa of the bulb and descending portion appeared normal. Stomach: large amount of bile noted in the stomach. mucosa of the pyloric channel, antrum, incisura, distal body appeared normal. Proximal body showed mosaic like pattern consistent with gastropathy. Retroflexion showed normal cardia and fundus. Lax LES noted. Esophagus: Diaphragmatic hiatus at 43cm, gastroesophageal junction at 43cm, Z line at 43cm. Irregular Z line. Mucosa of the esophagus appeared normal. The scope was then withdrawn and the patient tolerated the procedure well. With the patient in the same position, the Olympus linear echoendoscope was then used to intubate the oropharynx and esophagus with ease. We proceeded down to the posterior aspect of the gastric body. The aorta and celiac artery takeoff were visualized. The splenic vasculature appeared normal. We then advanced the scope to the duodenal bulb. The CBD had normal caliber with no evidence of intraductal stones. A normal stack sign was seen with normal portal vein, pancreatic duct and CBD. The scope was advanced to the second part of the duodenum. The ampullary view appeared normal. The uncinate process of the pancreas along with the SMA, aorta and SMV were normal. Pancreas: The pancreatic parenchyma was scanned carefully and appeared diffusely lobular with scatttered hyperechogenic stranding especially in the head and uncinate process likely related to resolving pancreatitis. There is no evidence of cystic structures, masses or chronic pancreatitis. Pancreatic duct was normal measured at 1.4 mm in the head and 0.5 mm in the body/tail. Common bile duct/Gall bladder: Common bile duct measured at 3.3 mm. Gall bladder surgically absent. Portal vein appeared dilated and prominent. Celiac take off: appeared normal. Left adrenal gland: Normal. Lymphadenopathy: No abnormal lymphadenopathy noted. The scope was then withdrawn and the patient tolerated the procedure well. Pre-Op/Pre-Procedure Diagnosis: Acute idiopathic pancreatitis. Post-Op/Post-Procedur e Diagnosis: Mild proximal gastropathy - likely chemical gastropathy vs mild portal hypertensive gastropathy. Large amount of bile in the stomach. Diffusely lobular pancreas with fat stranding - resolving pancreatitis. EUS showed prominent portal vein concerning for portal hypertension. Coarse echotexture of liver - ?fatty liver. Specimens: see above EBL: None Complications: None Recommendations: Continue omeprazole at current doses. Start Gaviscon 1 tablet with meals daily. If diarrhea, start cholestyramine/colest id. Schedule US liver and if evidence of fatty liver or cirrhotic morphology, fibroscan. Complete alcohol abstinence. Follow up in GI clinic as scheduled. I/primary surgeon/proceduralist performed the entire procedure. Sadi Ramon MD SIGNATURE: Sadi Ramon MD PATIENT NAME: Juan M Rodriguez DATE: June 23, 2020 TIME: 1:43 PM PAGER/CONTACT #: [facility] PROGRESSon 06-22-2020 PROGRESS HNO ID: [id number] Author: Joy Werner Service: Anesthesiology Author Type: Nurse Practitioner Type: Progress Notes Filed: 06/22/2020 10:58 AM Note Text: H/P done 06/02/[address] España [facility] CBC With Platelet and Differ entialon 08-23-2018 Abs Imm Granulocytes 0.07 E9/L Normal [facility] Basophils #/vol (Bld) 0.05 E9/L Normal 0.00-0.20 [facility] Basophils/100 WBC (Bld) 0.8 % Normal 0.0-2.0 [facility] Eosinophils #/vol (Bld) 0.26 E9/L Normal 0.05-0.50 [facility] Eosinophils/100 WBC (Bld) 4.0 % Normal 0.0-6.0 [facility] Erythrocyte distribution width Ratio (RBC) 15.3 fL High 11.5-15.0 [facility] Hematocrit Volume Fraction (Bld) 41.2 % Normal 37.0-54.0 [facility] Hemoglobin mass conc (Bld) 13.2 g/dL Normal 12.5-16.5 [facility] Imm Granulocytes 1.1 % Normal 0.0-5.0 [facility] Lymphocytes #/vol (Bld) 2.44 E9/L Normal 1.50-4.00 [facility] Lymphocytes/100 WBC (Bld) 37.1 % Normal 20.0-42.0 [facility] Entitic mass (RBC) 26.8 pg Normal 26.0-35.0 [facility] MCHC mass conc (RBC) 32.0 % Normal 32.0-34.5 [facility] MCV Entitic volume (RBC) 83.7 fL Normal 80.0-99.9 [facility] Monocytes #/vol (Bld) 0.53 E9/L Normal 0.10-0.95 [facility] Monocytes/100 WBC (Bld) 8.1 % Normal 2.0-12.0 [facility] Neutrophils #/vol (Bld) 3.22 E9/L Normal 1.80-7.30 [facility] Neutrophils/100 WBC (Bld) 48.9 % Normal 43.0-80.0 [facility] Platelet mean volume Entitic volume (Bld) 11.2 fL Normal 7.0-12.0 [facility] Platelets #/vol (Bld) 314 E9/L Normal 130-450 [facility] RBC #/vol (Bld) 4.92 E12/L Normal 3.80-5.80 [facility] WBC #/vol (Bld) 6.6 E9/L Normal 4.5-11.5 [facility] Comprehensive Metabolic Pane roxane 08-23-2018 Albumin mass conc 4.3 g/dL Normal 3.5-5.2 [facility] ALP enzyme act/vol 42 U/L Normal 40-129 [facility] ALT enzyme act/vol 63 U/L High 0-40 [facility] Anion gap molar conc 18 mmol/L High 7-16 [facility] AST enzyme act/vol 39 U/L Normal 0-39 [facility] Bilirubin mass conc 0.3 mg/dL Normal 0.0-1.2 [facility] Calcium mass conc 10.1 mg/dL Normal 8.6-10.2 [facility] Chloride molar conc 98 mmol/L Normal 98-107 [facility] CO2 molar conc 23 mmol/L Normal 22-29 [facility] Creatinine mass conc 1.3 mg/dL High 0.7-1.2 [facility] GFR/1.73 sq M predicted among blacks MDRD vol rate/area (S/P/Bld) mL/min/{1.73_m2} Normal [facility] GFR/1.73 sq M predicted among non-blacks MDRD vol rate/area (S/P/Bld) 53 mL/min/{1.73_m2} Normal >=60 [facility] Comment on above: Result Comment: [facility] [employer] blu Kidney Disease: less than 60 ml/min/1.73 sq.m. Kidney Failure: less than 15 ml/min/1.73 sq.m. Results valid for patients 18 years and older. Glucose mass conc 244 mg/dL High 74-99 [facility] Potassium molar conc 4.7 mmol/L Normal 3.5-5.0 [facility] Protein mass conc 7.2 g/dL Normal 6.4-8.3 [facility] Sodium molar conc 139 mmol/L Normal 132-146 [facility] Urea nitrogen mass conc 25 mg/dL High 8-23 [facility] Hgb A1Con 08-23-2018 Hemoglobin A1c/Hemoglobin.total mass fraction (Bld) 9.3 % High 4.0-5.6 [facility] Lipid Panelon 08-23-2018 Cholesterol in HDL mass conc 46 mg/dL Normal >40 [facility] Cholesterol in LDL mass conc 85 mg/dL Normal 0-99 [facility] Cholesterol mass conc 185 mg/dL Normal 0-199 [facility] Triglyceride mass conc 270 mg/dL High 0-149 [facility] VLDL Cholesterol (Calculated) 54 mg/dL Normal [facility] Vitamin D, 25-hydroxyon Vitamin D, 25-hydroxy 40 ng/mL Normal 30-100 [facility] Comment on above: Result Comment: <20 ng/mL.............Deficient 20-30 ng/mL...........Insufficient 30-100 ng/mL..........Sufficient >100 ng/mL............Toxic CBC With Platelet and Differ entialon 06-04-2018 Abs Imm Granulocytes 0.05 E9/L Normal [facility] Basophils #/vol (Bld) 0.04 E9/L Normal 0.00-0.20 [facility] Basophils/100 WBC (Bld) 0.6 % Normal 0.0-2.0 [facility] Eosinophils #/vol (Bld) 0.28 E9/L Normal 0.05-0.50 [facility] Eosinophils/100 WBC (Bld) 4.1 % Normal 0.0-6.0 [facility] Erythrocyte distribution width Ratio (RBC) 15.5 fL High 11.5-15.0 [facility] Hematocrit Volume Fraction (Bld) 41.8 % Normal 37.0-54.0 [facility] Hemoglobin mass conc (Bld) 13.3 g/dL Normal 12.5-16.5 [facility] Imm Granulocytes 0.7 % Normal 0.0-5.0 [facility] Lymphocytes #/vol (Bld) 2.21 E9/L Normal 1.50-4.00 [facility] Lymphocytes/100 WBC (Bld) 32.2 % Normal 20.0-42.0 [facility] MCH Entitic mass (RBC) 26.6 pg Normal 26.0-35.0 [facility] MCHC mass conc (RBC) 31.8 % Low 32.0-34.5 [facility] MCV Entitic volume (RBC) 83.6 fL Normal 80.0-99.9 [facility] Monocytes #/vol (Bld) 0.52 E9/L Normal 0.10-0.95 [facility] Monocytes/100 WBC (Bld) 7.6 % Normal 2.0-12.0 [facility] Neutrophils #/vol (Bld) 3.76 E9/L Normal 1.80-7.30 [facility] Neutrophils/100 WBC (Bld) 54.8 % Normal 43.0-80.0 [facility] Platelet mean volume Entitic volume (Bld) 11.8 fL Normal 7.0-12.0 [facility] Platelets #/vol (Bld) 297 E9/L Normal 130-450 [facility] RBC #/vol (Bld) 5.00 E12/L Normal 3.80-5.80 [facility] WBC #/vol (Bld) 6.9 E9/L Normal 4.5-11.5 [facility] Comprehensive Metabolic Pane roxane 06-04-2018 Albumin mass conc 4.3 g/dL Normal 3.5-5.2 [facility] ALP enzyme act/vol 36 U/L Low 40-129 [facility] ALT enzyme act/vol 38 U/L Normal 0-40 [facility] Anion gap molar conc 11 mmol/L Normal 7-16 [facility] AST enzyme act/vol 26 U/L Normal 0-39 [facility] Bilirubin mass conc 0.4 mg/dL Normal 0.0-1.2 [facility] Calcium mass conc 10.0 mg/dL Normal 8.6-10.2 [facility] Chloride molar conc 100 mmol/L Normal 98-107 [facility] CO2 molar conc 26 mmol/L Normal 22-29 [facility] Creatinine mass conc 1.3 mg/dL High 0.7-1.2 [facility] GFR/1.73 sq M predicted among blacks MDRD vol rate/area (S/P/Bld) mL/min/{1.73_m2} Normal [facility] GFR/1.73 sq M predicted among non-blacks MDRD vol rate/area (S/P/Bld) 53 mL/min/{1.73_m2} Normal >=60 [facility] Comment on above: Result Comment: [facility] [employer] blu Kidney Disease: less than 60 ml/min/1.73 sq.m. Kidney Failure: less than 15 ml/min/1.73 sq.m. Results valid for patients 18 years and older. Glucose mass conc 183 mg/dL High 74-99 [facility] Potassium molar conc 4.2 mmol/L Normal 3.5-5.0 [facility] Protein mass conc 7.3 g/dL Normal 6.4-8.3 [facility] Sodium molar conc 137 mmol/L Normal 132-146 [facility] Urea nitrogen mass conc 24 mg/dL High 8-23 [facility] Hgb A1Con 06-04-2018 Hemoglobin A1c/Hemoglobin.total mass fraction (Bld) 7.9 % High 4.0-5.6 [facility] Lipid Panelon 06-04-2018 Cholesterol in HDL mass conc 44 mg/dL Normal >40 [facility] Cholesterol in LDL mass conc 74 mg/dL Normal 0-99 [facility] Cholesterol mass conc 157 mg/dL Normal 0-199 [facility] Triglyceride mass conc 195 mg/dL High 0-149 [facility] VLDL Cholesterol (Calculated) 39 mg/dL Normal [facility] Vitamin D, 25-hydroxyon 05-18 Vitamin D, 25-hydroxy 34 ng/mL Normal 30-100 [facility] Comment on above: Result Comment: <20 ng/mL.............Deficient 20-30 ng/mL...........Insufficient 30-100 ng/mL..........Sufficient >100 ng/mL............Toxic CBC With Platelet and Differ entialon 02-07-2018 Abs Imm Granulocytes 0.06 E9/L Normal [facility] Basophils #/vol (Bld) 0.04 E9/L Normal 0.00-0.20 [facility] Basophils/100 WBC (Bld) 0.6 % Normal 0.0-2.0 [facility] Eosinophils #/vol (Bld) 0.33 E9/L Normal 0.05-0.50 [facility] Eosinophils/100 WBC (Bld) 4.8 % Normal 0.0-6.0 [facility] Erythrocyte distribution width Ratio (RBC) 15.4 fL High 11.5-15.0 [facility] Hematocrit Volume Fraction (Bld) 42.6 % Normal 37.0-54.0 [facility] Hemoglobin mass conc (Bld) 13.3 g/dL Normal 12.5-16.5 [facility] Imm Granulocytes 0.9 % Normal 0.0-5.0 [facility] Lymphocytes #/vol (Bld) 1.86 E9/L Normal 1.50-4.00 [facility] Lymphocytes/100 WBC (Bld) 26.8 % Normal 20.0-42.0 [facility] MCH Entitic mass (RBC) 25.7 pg Low 26.0-35.0 [facility] MCHC mass conc (RBC) 31.2 % Low 32.0-34.5 [facility] MCV Entitic volume (RBC) 82.2 fL Normal 80.0-99.9 [facility] Monocytes #/vol (Bld) 0.65 E9/L Normal 0.10-0.95 [facility] Monocytes/100 WBC (Bld) 9.4 % Normal 2.0-12.0 [facility] Neutrophils #/vol (Bld) 3.99 E9/L Normal 1.80-7.30 [facility] Neutrophils/100 WBC (Bld) 57.5 % Normal 43.0-80.0 [facility] Platelet mean volume Entitic volume (Bld) 11.4 fL Normal 7.0-12.0 [facility] Platelets #/vol (Bld) 351 E9/L Normal 130-450 [facility] RBC #/vol (Bld) 5.18 E12/L Normal 3.80-5.80 [facility] WBC #/vol (Bld) 6.9 E9/L Normal 4.5-11.5 [facility] Comprehensive Metabolic Pane roxane 02-07-2018 Albumin mass conc 4.1 g/dL Normal 3.5-5.2 [facility] ALP enzyme act/vol 45 U/L Normal 40-129 [facility] ALT enzyme act/vol 31 U/L Normal 0-40 [facility] Anion gap molar conc 16 mmol/L Normal 7-16 [facility] AST enzyme act/vol 21 U/L Normal 0-39 [facility] Bilirubin mass conc 0.3 mg/dL Normal 0.0-1.2 [facility] Calcium mass conc 9.6 mg/dL Normal 8.6-10.2 [facility] Chloride molar conc 103 mmol/L Normal 98-107 [facility] CO2 molar conc 23 mmol/L Normal 22-29 [facility] Creatinine mass conc 1.2 mg/dL Normal 0.7-1.2 [facility] GFR/1.73 sq M predicted among blacks MDRD vol rate/area (S/P/Bld) mL/min/{1.73_m2} Normal [facility] GFR/1.73 sq M predicted among non-blacks MDRD vol rate/area (S/P/Bld) 58 mL/min/{1.73_m2} Normal >=60 [facility] Comment on above: Result Comment: [facility] [employer] blu Kidney Disease: less than 60 ml/min/1.73 sq.m. Kidney Failure: less than 15 ml/min/1.73 sq.m. Results valid for patients 18 years and older. Glucose mass conc 210 mg/dL High 74-99 [facility] Potassium molar conc 4.6 mmol/L Normal 3.5-5.0 [facility] Protein mass conc 7.1 g/dL Normal 6.4-8.3 [facility] Sodium molar conc 142 mmol/L Normal 132-146 [facility] Urea nitrogen mass conc 19 mg/dL Normal 8-23 [facility] Hgb A1Con 02-07-2018 Hemoglobin A1c/Hemoglobin.total mass fraction (Bld) 7.9 % High 4.0-5.6 [facility] Lipid Panelon 02-07-2018 Cholesterol in HDL mass conc 50 mg/dL Normal >40 [facility] Cholesterol in LDL mass conc 72 mg/dL Normal 0-99 [facility] Cholesterol mass conc 150 mg/dL Normal 0-199 [facility] Triglyceride mass conc 140 mg/dL Normal 0-149 [facility] VLDL Cholesterol (Calculated) 28 mg/dL Normal [facility] PSA Screenon 02-07-2018 PSA Screen 2.40 ng/mL Normal 0.00-4.00 [facility] Vitamin D, 25-hydroxyon 01-19 Vitamin D, 25-hydroxy 51 ng/mL Normal 30-100 [facility] Comment on above: Result Comment: <20 ng/mL.............Deficient 20-30 ng/mL...........Insufficient 30-100 ng/mL..........Sufficient >100 ng/mL............Toxic CBC With Platelet No Differe ntialon 10-04-2017 Erythrocyte distribution width Ratio (RBC) 15.6 fL High 11.5-15.0 [facility] Hematocrit Volume Fraction (Bld) 40.0 % Normal 37.0-54.0 [facility] Hemoglobin mass conc (Bld) 12.6 g/dL Normal 12.5-16.5 [facility] MCH Entitic mass (RBC) 26.4 pg Normal 26.0-35.0 [facility] MCHC mass conc (RBC) 31.5 % Low 32.0-34.5 [facility] MCV Entitic volume (RBC) 83.7 fL Normal 80.0-99.9 [facility] Platelet mean volume Entitic volume (Bld) 11.1 fL Normal 7.0-12.0 [facility] Platelets #/vol (Bld) 329 E9/L Normal 130-450 [facility] RBC #/vol (Bld) 4.78 E12/L Normal 3.80-5.80 [facility] WBC #/vol (Bld) 7.4 E9/L Normal 4.5-11.5 [facility] Comprehensive Metabolic Pane roxane 10-04-2017 Albumin mass conc 4.2 g/dL Normal 3.5-5.2 [facility] ALP enzyme act/vol 30 U/L Low 40-129 [facility] ALT enzyme act/vol 38 U/L Normal 0-40 [facility] Anion gap molar conc 15 mmol/L Normal 7-16 [facility] AST enzyme act/vol 25 U/L Normal 0-39 [facility] Bilirubin mass conc 0.4 mg/dL Normal 0.0-1.2 [facility] Calcium mass conc 9.9 mg/dL Normal 8.6-10.2 [facility] Chloride molar conc 100 mmol/L Normal 98-107 [facility] CO2 molar conc 24 mmol/L Normal 22-29 [facility] Creatinine mass conc 1.4 mg/dL High 0.7-1.2 [facility] GFR/1.73 sq M predicted among blacks MDRD vol rate/area (S/P/Bld) 59 mL/min/{1.73_m2} Normal [facility] GFR/1.73 sq M predicted among non-blacks MDRD vol rate/area (S/P/Bld) 49 mL/min/{1.73_m2} Normal >=60 [facility] Comment on above: Result Comment: Director [employer] blu Kidney Disease: less than 60 ml/min/1.73 sq.m. Kidney Failure: less than 15 ml/min/1.73 sq.m. Results valid for patients 18 years and older. Glucose mass conc 220 mg/dL High 74-109 [facility] Potassium molar conc 4.5 mmol/L Normal 3.5-5.0 [facility] Protein mass conc 6.8 g/dL Normal 6.4-8.3 [facility] Sodium molar conc 139 mmol/L Normal 132-146 [facility] Urea nitrogen mass conc 24 mg/dL High 8-23 [facility] Hgb A1Con 10-04-2017 Hemoglobin A1c/Hemoglobin.total mass fraction (Bld) 8.0 % High 4.0-5.6 [facility] Lipid Panelon 10-04-2017 Cholesterol in HDL mass conc 50 mg/dL Normal >40 [facility] Cholesterol in LDL mass conc 72 mg/dL Normal 0-99 [facility] Cholesterol mass conc 157 mg/dL Normal 0-199 [facility] Triglyceride mass conc 176 mg/dL High 0-149 [facility] VLDL Cholesterol (Calculated) 35 mg/dL Normal [facility] Vital Signs Date Time Vital Sign Value Performing Clinician Facility 07-16-2024 11:33-0400 Body height 183 cm Judi Rice PA-C Work Phone: [facility] 07-16-2024 11:33-0400 Body mass index (BMI) [Ratio] 27.9 kg/m2 Judi BARR-C Work Phone: [facility] 07-16-2024 11:33-0400 Body temperature 97 [degF] Judi BARR-C Work Phone: [facility] 07-16-2024 11:33-0400 Body weight 93.44 kg Judi BARR-C Work Phone: [facility] 07-16-2024 11:33-0400 Diastolic blood pressure 60 mm[Hg] Judi BARR-C Work Phone: [facility] 07-16-2024 11:33-0400 Heart rate 81 /min Judi HERRONC Work Phone: [facility] 07-16-2024 11:33-0400 Respiratory rate 18 /min Judi BARR-C Work Phone: [facility] 07-16-2024 11:33-0400 SaO2% (BldA) [Mass fraction] 96 % Judi Rice PA-C Work Phone: 2(697)[phone] [place] [address] 07-16-2024 11:33-0400 Systolic blood pressure 112 mm[Hg] Judi Rice PA-C Work Phone: 0(602)[phone] [place] [address] 06-16-2024 19:45-0400 Diastolic blood pressure 85 mm[Hg] Dr. aTye Horan MD Work Phone: 6(527)772-544933 [place] [address] 06-16-2024 19:45-0400 Heart rate 75 /min Dr. Taye Horan MD Work Phone: 7(514)099-593033 [place] [address] 06-16-2024 19:45-0400 Respiratory rate 15 /min Dr. Taye Horan MD Work Phone: 8(610)700-840533 [place] [address] 06-16-2024 19:45-0400 SaO2% (BldA) [Mass fraction] 94 % Dr. Taye Horan MD Work Phone: 5(159)508-610533 [place] [address] 06-16-2024 19:45-0400 Systolic blood pressure 140 mm[Hg] Dr. Taye Horan MD Work Phone: 3(563)599-021133 [place] [address] 06-16-2024 17:44-0400 Body height 185.[address] Taye Horan MD Work Phone: 6(883)161-470633 [place] [address] 06-16-2024 17:44-0400 Body mass index (BMI) [Ratio] 28.8 kg/m2 Dr. Taye Horan MD Work Phone: 0(254)117-566933 [place] [address] 06-16-2024 17:44-0400 Body temperature 96.4 [degF] Dr. Taye Horan MD Work Phone: 5(762)591-409733 [place] [address] 06-16-2024 17:44-0400 Body weight 98.[address] Taye Horan MD Work Phone: 9([phone])430-078233 [place] [address] 02-18-2024 06:00-0500 Body temperature 98 [degF] Dr. Taye Horan MD Work Phone: 0(842)894-981333 [place] [address] 02-18-2024 06:00-0500 Diastolic blood pressure 70 mm[Hg] Dr. Taye Horan MD Work Phone: [facility] 02-18-2024 06:00-0500 Heart rate 84 /min Dr. Taye Horan MD Work Phone: 1([phone])834-905201 [place] [address] 02-18-2024 06:00-0500 Respiratory rate 18 /min Dr. Taye Horan MD Work Phone: 8(403)312-719133 [place] [address] 02-18-2024 06:00-0500 SaO2% (BldA) [Mass fraction] 94 % Dr. Taye Horan MD Work Phone: 8(647)767-808433 [place] [address] 02-18-2024 06:00-0500 Systolic blood pressure 160 mm[Hg] Dr. Taye Horan MD Work Phone: 5(427)980-271333 [place] [address] 02-18-2024 03:54-0500 Body mass index (BMI) [Ratio] 29.2 kg/m2 Dr. Taye Horan MD Work Phone: 8(235)740-203633 [place] [address] 02-18-2024 03:54-0500 Body weight 100.[address] Taye Horan MD Work Phone: 4(955)547-305733 [place] [address] 01-15-2024 11:42-0400 Body mass index (BMI) [Ratio] 29.7 kg/m2 Judi Rice PA-C Work Phone: [facility] 01-15-2024 11:42-0400 Body temperature 97.59 [degF] Judi Rice PA-C Work Phone: [facility] 01-15-2024 11:42-0400 Body weight 99.34 kg Judi Rice PA-C Work Phone: [facility] 01-15-2024 11:42-0400 Diastolic blood pressure 60 mm[Hg] Judi Rice PA-C Work Phone: [facility] 01-15-2024 11:42-0400 Heart rate 99 /min Judi Rice PA-C Work Phone: [facility] 01-15-2024 11:42-0400 Respiratory rate 18 /min Judi Rice PA-C Work Phone: [facility] 01-15-2024 11:42-0400 SaO2% (BldA) [Mass fraction] 93 % Judi Rice PA-C Work Phone: [facility] 01-15-2024 11:42-0400 Systolic blood pressure 108 mm[Hg] Judi Rice PA-C Work Phone: [facility] 07-12-2023 11:23-0400 Body height 182.9 cm Taye Horan MD Work Phone: [facility] 07-12-2023 11:23-0400 Body mass index (BMI) [Ratio] 30.79 kg/m2 Taye Horan MD Work Phone: [facility] 07-12-2023 11:23-0400 Body weight 102.97 kg Taye Horan MD Work Phone: [facility] 07-12-2023 11:23-0400 Diastolic blood pressure 64 mm[Hg] Taye Horan MD Work Phone: [facility] 07-12-2023 11:23-0400 Heart rate 76 /min Taye Horan MD Work Phone: [facility] 07-12-2023 11:23-0400 Respiratory rate 6 /min Taye Horan MD Work Phone: [facility] 07-12-2023 11:23-0400 Systolic blood pressure 122 mm[Hg] Taye Horan MD Work Phone: [facility] 11-08-2022 10:40-0400 Body weight 101.15 kg Taye Horan MD Work Phone: [facility] 11-08-2022 10:40-0400 Diastolic blood pressure 72 mm[Hg] Taye Horan MD Work Phone: [facility] 11-08-2022 10:40-0400 Heart rate 88 /min Taye Horan MD Work Phone: [facility] 11-08-2022 10:40-0400 Respiratory rate 18 /min Taye Horan MD Work Phone: [facility] 11-08-2022 10:40-0400 Systolic blood pressure 116 mm[Hg] Taye Horan MD Work Phone: [facility] 09-17-2022 12:15-0400 Body temperature 97.4 [degF] [facility] 09-17-2022 12:15-0400 Diastolic blood pressure 78 mm[Hg] [facility] 09-17-2022 12:15-0400 Heart rate 76 /min [facility] 09-17-2022 12:15-0400 Respiratory rate 14 /min [facility] 09-17-2022 12:15-0400 SaO2% (BldA) [Mass fraction] 99 % [facility] 09-17-2022 12:15-0400 Systolic blood pressure 136 mm[Hg] [facility] 09-17-2022 11:33-0400 Body height 187.96 cm [facility] 09-17-2022 11:33-0400 Body mass index (BMI) [Ratio] 29.2 kg/m2 [facility] 09-17-2022 11:33-0400 Body weight 103.22 kg [facility] 07-08-2022 14:03-0400 Body height 182.9 cm Taye Horan MD Work Phone: [facility] 07-08-2022 14:03-0400 Body weight 102.06 kg Taye Horan MD Work Phone: [facility] 07-08-2022 14:03-0400 Diastolic blood pressure 68 mm[Hg] Taye Horan MD Work Phone: [facility] 07-08-2022 14:03-0400 Heart rate 88 /min Taye Horan MD Work Phone: [facility] 07-08-2022 14:03-0400 Respiratory rate 16 /min Taye Horan MD Work Phone: [facility] 07-08-2022 14:03-0400 Systolic blood pressure 114 mm[Hg] Taye Horan MD Work Phone: [facility] 02-10-2022 19:24-0500 Body height 187.96 cm [facility] Work Phone: 02-10-2022 19:24-0500 Body mass index (BMI) [Ratio] 29.2 kg/m2 [facility] Work Phone: 02-10-2022 19:24-0500 Body temperature 97.9 [degF] [facility] Work Phone: 02-10-2022 19:24-0500 Body weight 103.41 kg [facility] Work Phone: 02-10-2022 19:24-0500 Diastolic blood pressure 64 mm[Hg] [facility] Work Phone: 02-10-2022 19:24-0500 Heart rate 79 /min [facility] Work Phone: 02-10-2022 19:24-0500 Respiratory rate 16 /min [facility] Work Phone: 02-10-2022 19:24-0500 SaO2% (BldA) [Mass fraction] 97 % [facility] Work Phone: 02-10-2022 19:24-0500 Systolic blood pressure 146 mm[Hg] [facility] Work Phone: 01-11-2022 12:10-0400 Body weight 103.87 kg Radha Pandya RN [facility] 11-30-2021 14:26-0400 Body weight 103.87 kg Radha Pandya RN [facility] 09-15-2021 10:24-0400 Body weight 104.78 kg Radha Pandya RN [facility] 06-28-2021 08:45-0400 Diastolic blood pressure 55 mm[Hg] Meir Sethi MD Work Phone: [facility] 06-28-2021 08:45-0400 Heart rate 65 /min Meir Sethi MD Work Phone: [facility] [employer] 06-28-2021 08:45-0400 Respiratory rate 18 /min Meir Sethi MD Work Phone: [facility] [employer] 06-28-2021 08:45-0400 SaO2% (BldA) [Mass fraction] 92 % Meir Sethi MD Work Phone: [facility] [employer] 06-28-2021 08:45-0400 Systolic blood pressure 115 mm[Hg] Meir Sethi MD Work Phone: [facility] [facility] 06-28-2021 08:28-0400 Body temperature 96.69 [degF] Meir Sethi MD Work Phone: [facility] 06-23-2021 08:42-0400 Body height 185.4 cm Meir Sethi MD Work Phone: [facility] 06-23-2021 08:42-0400 Body mass index (BMI) [Ratio] 30.34 kg/m2 Meir Sethi MD Work Phone: [facility] [employer] 06-23-2021 08:42-0400 Body weight 104.33 kg Meir Sethi MD Work Phone: [facility] 06-17-2021 14:49-0400 Diastolic blood pressure 64 mm[Hg] [facility] Work Phone: 06-17-2021 14:49-0400 Heart rate 77 /min [facility] Work Phone: 06-17-2021 14:49-0400 Respiratory rate 18 /min [facility] Work Phone: 06-17-2021 14:49-0400 SaO2% (BldA) [Mass fraction] 96 % [facility] Work Phone: 06-17-2021 14:49-0400 Systolic blood pressure 135 mm[Hg] [facility] Work Phone: 06-17-2021 12:39-0400 Body height 185.42 cm [facility] Work Phone: 06-17-2021 12:39-0400 Body mass index (BMI) [Ratio] 31.3 kg/m2 [facility] Work Phone: 06-17-2021 12:39-0400 Body temperature 96.1 [degF] [facility] Work Phone: 06-17-2021 12:39-0400 Body weight 107.6 kg [facility] Work Phone: Encounters Encounter Date Encounter Type Care Provider Facility Start: 10-03-2024 End: 10-03-2024 Refill Taye Horan MD Work Phone: [facility] [place] Comment on above: Refill Request Start: 09-16-2024 End: 09-16-2024 Telephone encounter Taye Horan MD Work Phone: [facility] [place] Comment on above: needs new glucose me ter and strips Start: 09-12-2024 End: 09-12-2024 Telephone encounter Taye Horan MD Work Phone: [facility] [place] Comment on above: Medication Request Start: 07-23-2024 End: 07-23-2024 Chart abstracting Taye Horan MD Work Phone: [facility] Comment on above: Outside Diabetic Eye Exam Start: 07-23-2024 End: 07-23-2024 Ophthalmic examination and evaluation Taye Horan MD Work Phone: [facility] Start: 07-16-2024 End: 07-16-2024 Patient encounter procedure Judi Rice PA-C Work Phone: [facility] [place] Comment on above: Medicare annual well ness visit, subsequent (Primary Dx); Advance directive discussed with patient; Screening for depression; Encounter for screening examination for other mental health and behavioral disorders; GERD without esophagitis; Essential hypertension; Smoker; Type 2 diabetes mellitus with stage 3b chronic kidney disease, with long-term current use of insulin (HCC); Stage 3b chronic kidney disease (HCC); Dyslipidemia; Hypertensive chronic kidney disease with stage 1 through stage 4 chronic kidney disease, or unspecified chronic kidney disease; Hypomagnesemia; History of kidney stones; Benign prostatic hyperplasia with lower urinary tract symptoms, symptom details unspecified; Chronic kidney disease, stage 1 Start: 07-16-2024 End: 07-16-2024 ambulatory TAYE HORAN Facility:[facility] Start: 07-10-2024 End: 07-10-2024 ambulatory TAYE HORAN Facility:[facility] Start: 07-01-2024 End: 07-01-2024 Refill Taye Horan MD Work Phone: [facility] [place] Comment on above: Refill Request Start: 06-16-2024 End: 06-16-2024 Emergency department patient visit Dr. Taye Horan MD Work Phone: -Emergency Department Work Phone: Start: 06-10-2024 End: 06-10-2024 Refill Taye Horan MD Work Phone: [facility] [place] Comment on above: Refill Request Start: 06-07-2024 End: 06-07-2024 Refill Taye Horan MD Work Phone: [facility] [place] Comment on above: Refill Request Start: 04-11-2024 End: 04-11-2024 Refill Taye Horan MD Work Phone: [facility] [place] Comment on above: Refill Request Start: 04-01-2024 End: 04-02-2024 Telephone encounter Sharif Payan MA [facility] [place] Comment on above: Medication Problem Start: 02-27-2024 End: 02-27-2024 ambulatory Nancy Vanessa RN Work Phone: [employer] Comment on above: Community Monitoring Outreach Start: 02-23-2024 End: 02-23-2024 Refill Judi Rice PA-C Work Phone: [facility] [place] Comment on above: Refill Request Start: 02-19-2024 End: 02-19-2024 Chart abstracting Taye Horan MD Work Phone: [facility] [place] Comment on above: ER Discharge Summary Start: 02-18-2024 End: 02-18-2024 Emergency department patient visit Dr. Chava Cao MD -Emergency Department Work Phone: Start: 02-09-2024 End: 02-09-2024 Refill Taye Horan MD Work Phone: [facility] [place] Comment on above: Refill Request Start: 01-30-2024 End: 01-30-2024 Refill Taye Horan MD Work Phone: [facility] [place] Comment on above: Refill Request Start: 01-26-2024 End: 01-26-2024 ambulatory Marcelina Garcia RN [employer] Comment on above: Community Monitoring Outreach (CDM Telephonic Outreach) Start: 01-17-2024 End: 01-17-2024 Telephone encounter Judi Rice PA-C Work Phone: [facility] [place] Comment on above: Results Start: 01-15-2024 End: 01-15-2024 Subsequent hospital visit by physician Xr [facility] [place] Work Phone: Radiology Comment on above: COVID-19 [U07.1] Start: 01-15-2024 End: 01-15-2024 ambulatory TAYE HORAN Facility:[facility] Start: 01-15-2024 End: 01-15-2024 Patient encounter procedure Judi Rice PA-C Work Phone: [facility] [place] Comment on above: Type 2 diabetes lolis itus with stage 3b chronic kidney disease, with long-term current use of insulin (HCC) (Primary Dx); Essential hypertension; Hypertensive chronic kidney disease with stage 1 through stage 4 chronic kidney disease, or unspecified chronic kidney disease; Smoker; GERD without esophagitis; Nausea; Benign prostatic hyperplasia with lower urinary tract symptoms, symptom details unspecified; Stage 3b chronic kidney disease (HCC); Dyslipidemia; COVID-19; SOB (shortness of breath); Medication management Start: 01-09-2024 End: 01-09-2024 ambulatory TAYE HORAN Facility:[facility] Start: 01-03-2024 End: 01-03-2024 Refill Judi Rice PA-C Work Phone: [facility] [place] Comment on above: Refill Request Start: 12-27-2023 End: 12-27-2023 Refill Taye Horan MD Work Phone: [facility] [place] Comment on above: Refill Request Start: 12-26-2023 End: 12-26-2023 Telephone encounter Taye Horan MD Work Phone: [facility] [place] Comment on above: Patient Update: FIAS P Start: 12-22-2023 End: 12-22-2023 ambulatory Freda Nascimento RN Work Phone: [employer] Comment on above: CDM (CDM Telephonic Outreach) Start: 12-20-2023 End: 12-20-2023 ambulatory Taye Hoarn Facility:[facility] Start: 12-12-2023 End: 12-12-2023 Chart abstracting Taye Horan MD Work Phone: [facility] [place] Comment on above: Outside Urology Start: 11-27-2023 End: 11-27-2023 Refill Taye Horan MD Work Phone: [facility] [place] Comment on above: Refill Request Start: 11-22-2023 End: 11-22-2023 Refill Taye Horan MD Work Phone: [facility] [place] Comment on above: Refill Request Start: 11-15-2023 End: 11-15-2023 ambulatory Nancy Vanessa RN Work Phone: [employer] Comment on above: Community Monitoring Outreach Start: 11-07-2023 End: 11-07-2023 Refill Taye Horan MD Work Phone: [facility] [place] Comment on above: Refill Request Start: 11-04-2023 End: 11-04-2023 Patient Outreach Bobbi Barrera RN Work Phone: [employer] Comment on above: Weekly phone contact (Recurring) for Transitional Care Management Start: 11-02-2023 Telephone encounter Judi mustafa PA-C Work Phone: [facility] Comment on above: Appointment Start: 10-26-2023 ambulatory Karen Sequeira RN Work Phone: [employer] Start: 10-26-2023 Chart abstracting Taye mccallum MD Work Phone: [facility] Comment on above: Outside Urology Start: 10-26-2023 Telephone follow-up Karen alexander RN Work Phone: [employer] Comment on above: Transition Of Care ( TCM Follow Up/) Weekly phone contact (Recurring) for Transitional Care Management Start: 10-25-2023 ambulatory Marcelina velasquez Care Management Comment on above: Community Monitoring Outreach (CDM Outreach Telephonic Outreach) Start: 10-24-2023 ambulatory Marcelina velasquez Care Management Comment on above: Community Monitoring Outreach (CDM Telephonic Outreach) Start: 10-20-2023 Chart abstracting Sharif rubalcava [facility] [place] Comment on above: Consult (Consult/pro cedure - Urology ) Start: 10-20-2023 End: 10-20-2023 ambulatory Adal Torres Facility:[facility] Start: 10-17-2023 ambulatory Bobbi kennedy RN Work Phone: [employer] Start: 10-17-2023 Telephone follow-up Bobbi Barrera RN Work Phone: [employer] Comment on above: Transition Of Care ( TCM / OON follow up ) Weekly phone contact (Recurring) for Transitional Care Management Start: 10-13-2023 Chart abstracting Sharif rubalcava [facility] [place] Comment on above: Hospital Discharge ( [facility] ) Start: 10-10-2023 Patient Outreach Bobbi Barrera RN Work Phone: [employer] Comment on above: Transition Of Care ( TCM / OON [facility] 10/09/23) Initial phone contact for Transitional Care Management Start: 10-09-2023 Chart abstracting Sharif rubalcava [facility] [place] Comment on above: ER F/U ([facility] ) Start: 10-09-2023 ambulatory David Sofie Facility:[facility] Start: 10-07-2023 ambulatory Wolfgang Sung y:[facility] Start: 10-07-2023 End: 10-09-2023 Evaluation and management of inpatient Taye Horan Facility:[facility] Start: 10-04-2023 Refill Taye cox MD Work Phone: [facility] Comment on above: Refill Request Start: 09-14-2023 Refill Taye cox MD Work Phone: [facility] Comment on above: Refill Request Start: 09-12-2023 ambulatory Marcelina Vega latory Care Management Comment on above: Community Monitoring Outreach (CDM Telephonic Outreach) Start: 09-11-2023 ambulatory Marcelina Vega latnirav Care Management Comment on above: Community Monitoring Outreach (CDM Telephonic Outreach) Start: 08-10-2023 ambulatory Marcelina Vega latnirav Care Management Comment on above: Community Monitoring Outreach (CDM Telephonic Outreach) Start: 07-12-2023 End: 07-12-2023 Ophthalmic examination and evaluation Taye Horan MD Work Phone: [facility] Start: 07-12-2023 End: 07-12-2023 Patient encounter procedure Taye Horan MD Work Phone: [facility] Comment on above: Medicare annual well ness visit, subsequent (Primary Dx); Type 2 diabetes mellitus with stage 3b chronic kidney disease, with long-term current use of insulin (HCC); Diabetic eye exam (HCC); Essential hypertension; Dyslipidemia; Anemia of chronic disease; GERD without esophagitis; Hypertensive chronic kidney disease with stage 1 through stage 4 chronic kidney disease, or unspecified chronic kidney disease; Stage 3b chronic kidney disease (HCC); Smoker; Hypomagnesemia; Benign prostatic hyperplasia with lower urinary tract symptoms, symptom details unspecified; Advance directive discussed with patient Start: 07-06-2023 ambulatory Marcelina Vega latory Care Management Start: 07-04-2023 Telephone encounter Taye Horan MD Work Phone: [facility] Comment on above: Insulin Request Start: 06-28-2023 Refill Taye cox MD Work Phone: [facility] [place] Comment on above: Refill Request Start: 05-29-2023 Telephone encounter Taye Horan MD Work Phone: [facility] [place] Comment on above: appointment reschedu le Start: 05-24-2023 ambulatory Marcelina Garcia RN [facility] Management Comment on above: Community Monitoring Outreach (CDM Telephonic Outerach) Start: 05-05-2023 Refill Taye cox MD Work Phone: [facility] [place] Comment on above: Refill Request Start: 04-24-2023 Telephone encounter Taye Horan MD Work Phone: [facility] [place] Comment on above: Forms Start: 03-03-2023 Refill Taye cox MD Work Phone: [facility] [place] Comment on above: Refill Request Start: 01-18-2023 ambulatory Marcelina Garcia RN [facility] Management Comment on above: Community Monitoring Outreach (CDM Telephonic Outreach) Start: 01-13-2023 Telephone encounter Taye Horan MD Work Phone: [facility] [place] Comment on above: Patient Update Start: 01-09-2023 ambulatory Marcelina Garcia RN [facility] Management Comment on above: Community Monitoring Outreach (CDM Telephonic Outreach) Start: 11-08-2022 End: 11-08-2022 Ophthalmic examination and evaluation Taye Horan MD Work Phone: [facility] Work Phone: Start: 11-08-2022 End: 11-08-2022 Patient encounter procedure Taye Horan MD Work Phone: [facility] [place] Comment on above: Type 2 diabetes lolis itus with stage 3b chronic kidney disease, with long-term current use of insulin (HCC) (Primary Dx); Diabetic eye exam (HCC); Essential hypertension; Dyslipidemia; GERD without esophagitis; Hypertensive chronic kidney disease with stage 1 through stage 4 chronic kidney disease, or unspecified chronic kidney disease; Stage 3b chronic kidney disease (HCC); Anemia of chronic disease; Hypomagnesemia; Smoker Start: 10-31-2022 Refill Taye cox MD Work Phone: [facility] Comment on above: Refill Request Start: 10-26-2022 Chart abstracting Taye mccallum MD Work Phone: [facility] Comment on above: Outside Imaging Start: 10-19-2022 End: 10-19-2022 Patient encounter procedure Rachid Mane Work Phone: Podiatry Comment on above: 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) (Primary Dx); Blister of leg Start: 10-18-2022 Refill Taye cox MD Work Phone: [facility] Comment on above: Refill Request Start: 10-06-2022 Telephone encounter Judi mustafa PA-C Work Phone: [facility] Comment on above: handicap placard olivia ewal rx Start: 10-03-2022 ambulatory Marcelina Vega latory Care Management Comment on above: Community Monitoring Outreach (CDM Telephonic Outreach) Start: 09-26-2022 Chart abstracting Taye mccallum MD Work Phone: [facility] Comment on above: ED Follow-up Start: 09-17-2022 End: 09-17-2022 Emergency department patient visit [facility]-Emergency Department Work Phone: Start: 08-22-2022 Refill Taye cox MD Work Phone: [facility] Comment on above: Refill Request Community Monitoring Outreach (CDM Telephonic Outreach) Start: 08-18-2022 ambulatory Marcelina Vega latory Care Management Comment on above: Community Monitoring Outreach (CDM Telephonic Outreach) Start: 07-18-2022 Telephone encounter Taye Horan MD Work Phone: [facility] Comment on above: Patient Request Start: 07-08-2022 End: 07-08-2022 Ophthalmic examination and evaluation Taye Horan MD Work Phone: [facility] [place] Start: 07-08-2022 End: 07-08-2022 Patient encounter procedure Taye Horan MD Work Phone: [facility] [place] Comment on above: Medicare annual well ness visit, subsequent (Primary Dx); Type 2 diabetes mellitus with stage 3b chronic kidney disease, with long-term current use of insulin (HCC); Diabetic eye exam (HCC); Dyslipidemia; Essential hypertension; Hypertensive chronic kidney disease with stage 1 through stage 4 chronic kidney disease, or unspecified chronic kidney disease; Stage 3b chronic kidney disease (HCC); Anemia of chronic disease; GERD without esophagitis; Hypomagnesemia; Smoker; Benign prostatic hyperplasia with lower urinary tract symptoms, symptom details unspecified; Advance directive discussed with patient; Need for vaccination; Nausea; Diarrhea, unspecified type; Neck pain Start: 06-28-2022 ambulatory Marcelina Vega latory Care Management Comment on above: Community Monitoring Outreach (CDM Telephonic Outreach) Start: 06-06-2022 Refill Taye cox MD Work Phone: [facility] [place] Comment on above: Refill Request Start: 05-16-2022 Refill Taye cox MD Work Phone: [facility] [place] Comment on above: Refill Request Start: 05-09-2022 ambulatory Marcelina Vega latory Care Management Comment on above: Community Monitoring Outreach (CDM Telephonic Outreach) Start: 04-21-2022 ambulatory Marcelina Vega latory Care Management Comment on above: Community Monitoring Outreach (CDM Telephonic Outreach) Start: 04-15-2022 Refill Taye cox MD Work Phone: [facility] [place] Comment on above: Refill Request Start: 04-14-2022 Refill Taye cox MD Work Phone: [facility] [place] Comment on above: Refill Request Start: 04-05-2022 ambulatory Marcelina Vega latory Care Management Comment on above: Community Monitoring Outreach (CDM Telephonic Outreach) Start: 03-18-2022 ambulatory Marcelina Vega latory Care Management Start: 03-10-2022 Refill Taye cox MD Work Phone: [facility] [place] Comment on above: Refill Request Start: 03-07-2022 ambulatory Marcelina Vega latory Care Management Comment on above: Community Monitoring Outreach ([facility] Telephonic Outreach) Start: 03-01-2022 Refill Taye cox MD Work Phone: [facility] [place] Comment on above: Refill Request Start: 02-10-2022 End: 02-10-2022 Emergency department patient visit [facility] Start: 02-03-2022 Refill Taye cox MD Work Phone: [facility] [place] Comment on above: Refill Request Start: 01-17-2022 Refill Taye cox MD Work Phone: [facility] Comment on above: Refill Request Start: 01-10-2022 ambulatory Radha Vega latory Care Management Comment on above: Community Monitoring Outreach ([facility] Telephonic Outreach) Start: 12-27-2021 Telephone encounter Taye Horan MD Work Phone: [facility] [place] Comment on above: Patient Question Start: 11-29-2021 ambulatory Radha Vega latory Care Management Comment on above: Community Monitoring Outreach ([facility] Telephonic Outreach) Start: 10-22-2021 Refill Sharif Payan [facility] [place] Comment on above: Refill Request Start: 10-13-2021 Refill Taye cox MD Work Phone: [facility] [place] Comment on above: Refill Request Start: 09-14-2021 ambulatory Radha Vega latory Care Management Comment on above: Community Monitoring Outreach ([facility] Engagement - Changed to Telephonic Outreaches) Start: 08-14-2021 Refill Taye cox MD Work Phone: [facility] [place] Comment on above: Refill Request Start: 07-19-2021 Refill Taye cox MD Work Phone: [facility] [place] Comment on above: Refill Request Start: 07-08-2021 Telephone encounter Taye Horan MD Work Phone: [facility] [place] Comment on above: Results Start: 07-07-2021 Patient encounter procedure Taye Horan MD Work Phone: [facility] Work Phone: Start: 06-28-2021 End: 06-28-2021 ambulatory MEIR SETHI [facility] Start: 06-28-2021 End: 06-28-2021 Subsequent hospital visit by physician Meir Sethi MD Work Phone: [facility] Start: 06-23-2021 Telephone encounter Taye Horan MD Work Phone: [facility] [place] Comment on above: Patient Question Start: 06-20-2021 ambulatory Kourtney lowe RN Work Phone: [employer] Comment on above: community [facility] outreach (enrollment) Start: 06-17-2021 End: 06-17-2021 Emergency department patient visit [facility]Emergency [facility] Start: 02-27-2020 Patient encounter procedure Kourtney Jerry RN Work Phone: [facility] Work Phone: Start: 08-23-2018 End: 08-25-2018 Patient encounter procedure [facility] Start: 06-04-2018 End: 06-07-2018 Patient encounter procedure [facility] Start: 02-07-2018 End: 02-10-2018 Patient encounter procedure [facility] Start: 10-04-2017 End: 10-07-2017 Patient encounter procedure [facility] Procedures Date Procedure Procedure Detail Performing Clinician Start: 07-16-2024 Adult depression scr eening assessment Judi Rice PA-C Work Phone: Start: 06-16-2024 CT of abdomen and pe lvis without contrast Dr. Taye Horan MD Work Phone: Start: 02-18-2024 X-ray of chest, PA a nd lateral views Dr. Taye Horan MD Work Phone: Start: 07-12-2023 Adult depression scr eening assessment Sharif Payan MA Start: 06-28-2021 DISCHARGE PATIENT MOUNI R EFREM Start: 06-28-2021 DIAGNOSIS FOR PROCEDURE MOUNIR EFREM Start: 06-28-2021 DIET NPO MOUNIR ALEXYS D Start: 06-28-2021 FULL CODE MOUNIR ALEXYS D Start: 06-28-2021 Gluc bld gluc mntr d ev cleared fda spec home use MOUNIR EFREM Start: 06-28-2021 NURSING COMMUNICATION M AURELIANO EF[facility] Start: 06-28-2021 PAT PROTOCOL MOUNIR ALEXYS D Start: 06-28-2021 TREATMENT CONSENT MOUNI R EFREM Start: 06-28-2021 VERIFY INFORMED CONSENT MOUNIR EFREM Start: 06-28-2021 VITAL SIGNS MOUNIR ALEXYS D Start: 06-28-2021 Gluc bld gluc mntr d ev cleared fda spec home use Unknown Provider Result Start: 08-22-2018 25 hydroxy includes fractions if performed [facility] Start: 08-22-2018 Blood count complete auto&auto difrntl wbc [facility] Start: 08-22-2018 Comprehensive metabo lic panel [facility] Start: 08-22-2018 Hemoglobin glycosylated a1c [facility] Start: 08-22-2018 Lipid panel [facility] Start: 06-04-2018 25 hydroxy includes fractions if performed [facility] Start: 06-04-2018 25 hydroxy includes fractions if performed [facility] Start: 06-04-2018 Blood count complete auto&auto difrntl wbc [facility] Start: 06-04-2018 Comprehensive metabo lic panel [facility] Start: 06-04-2018 Hemoglobin glycosylated a1c [facility] Start: 06-04-2018 Lipid panel [facility] Start: 02-07-2018 Blood count complete auto&auto difrntl wbc [facility] Start: 02-07-2018 Comprehensive metabo lic panel [facility] Start: 02-07-2018 Hemoglobin glycosylated a1c [facility] Start: 02-07-2018 Lipid panel [facility] Start: 02-07-2018 PSA screening [facility] Start: 02-07-2018 VITAMIN D 25 HYDROX, D2 AND D3 [facility] Start: 10-04-2017 Blood count complete automated [facility] Start: 10-04-2017 Comprehensive metabo lic panel [facility] Start: 10-04-2017 Hemoglobin glycosylated a1c [facility] Start: 10-04-2017 Lipid panel [facility] Plan of Treatment Date Care Activity Detail Author Start: 02-18-2032 Urine microalbumin profile [facility] Start: 11-23-2025 DTaP/Tdap/Td vaccine (2 - Td or Tdap) DTaP/Tdap/Td vaccine (2 - Td or Tdap) [facility] Start: 11-23-2025 Urine microalbumin profile DTAP,TDAP,TD (2 - Td or Tdap) [facility] Start: 07-23-2025 Glaucoma screening Dilated Retinal E xam [facility] Start: 07-16-2025 Anxiety Screening Anxiety Screening [facility] Start: 07-16-2025 Depression Screening Depression Scre ening [facility] Start: 07-16-2025 Diabetic foot examination Diabetic Foot Exam [facility] Start: 07-16-2025 Medicare Annual Wellness Visit Medicare Annual Wellness Visit [facility] Start: 07-10-2025 Hepatitis B screening Urine Al bumin:Creatinine Ratio [facility] Start: 07-10-2025 Hepatitis B surface antibody level LDL Cholesterol [facility] Start: 01-09-2025 Hemoglobin A1c measurement HbA1C [facility] Start: 01-08-2025 Hepatitis B surface antibody level LDL Cholesterol [facility] Start: 11-19-2024 End: 11-19-2024 Patient encounter procedure 11/19/2024 11:40 AM EDT Office Visit Family Jennifer Magallanes [address] [place] [id number] Judi Rice PA-C [address] [place] [id number] 4 month f/u Family Jennifer Magallanes Comment on above: 4 month f/u Start: 11-18-2024 Influenza vaccination Influenza Vacc ine (#1) [facility] Start: 11-15-2024 End: 02-14-2025 CBC W Auto Differential panel - Blood COMPLETE BLOOD COUNT AND DIFFERENTIAL Lab Routine Type 2 diabetes mellitus with stage 3b chronic kidney disease, with long-term current use of insulin (HCC) Expected: 11/15/2024, Expires: 02/14/2025 [facility] Comment on above: Expected: 11/15/2024 , Expires: 02/14/2025 Start: 11-15-2024 End: 02-14-2025 Comprehensive metabolic 2000 panel - Serum or Plasma COMPREHENSIVE METABOLIC PANEL Lab Routine Type 2 diabetes mellitus with stage 3b chronic kidney disease, with long-term current use of insulin (HCC) Expected: 11/15/2024, Expires: 02/14/2025 [facility] Comment on above: Expected: 11/15/2024 , Expires: 02/14/2025 Start: 11-15-2024 End: 02-14-2025 Hemoglobin A1c in Blood HEMOGLOBIN A1C Lab Routine Type 2 diabetes mellitus with stage 3b chronic kidney disease, with long-term current use of insulin (HCC) Expected: 11/15/2024, Expires: 02/14/2025 [facility] Work Phone: Comment on above: Expected: 11/15/2024 , Expires: 02/14/2025 Start: 11-15-2024 End: 02-14-2025 LIPID PANEL, NONFASTING LIPID PANEL, NONFASTING Lab Routine Dyslipidemia Expected: 11/15/2024, Expires: 02/14/2025 [facility] Comment on above: Expected: 11/15/2024 , Expires: 02/14/2025 Start: 07-16-2024 End: 07-16-2024 Patient encounter procedure 07/16/2024 11:40 AM EDT Office Visit Family Medicine [facility] [address] [place] [address] Judi Rice PA-C [address] [facility] [place] [id number] Medicare Wellness [facility] Comment on above: Medicare Wellness Start: 07-15-2024 End: 10-14-2024 CBC W Auto Differential panel - Blood COMPLETE BLOOD COUNT AND DIFFERENTIAL Lab Routine Type 2 diabetes mellitus with stage 3b chronic kidney disease, with long-term current use of insulin (HCC) Expected: 07/15/2024, Expires: 10/14/2024 [facility] Comment on above: Expected: 07/15/2024 , Expires: 10/14/2024 Start: 07-15-2024 End: 10-14-2024 Cobalamin (Vitamin B12) [Mass/volume] in Serum or Plasma VITAMIN B12 Lab Routine Medication management Expected: 07/15/2024, Expires: 10/14/2024 [facility] Comment on above: Expected: 07/15/2024 , Expires: 10/14/2024 Start: 07-15-2024 End: 10-14-2024 Comprehensive metabolic 2000 panel - Serum or Plasma COMPREHENSIVE METABOLIC PANEL Lab Routine Type 2 diabetes mellitus with stage 3b chronic kidney disease, with long-term current use of insulin (HCC) Expected: 07/15/2024, Expires: 10/14/2024 [facility] Comment on above: Expected: 07/15/2024 , Expires: 10/14/2024 Start: 07-15-2024 End: 10-14-2024 Hemoglobin A1c in Blood HEMOGLOBIN A1C Lab Routine Type 2 diabetes mellitus with stage 3b chronic kidney disease, with long-term current use of insulin (HCC) Expected: 07/15/2024, Expires: 10/14/2024 [facility] Comment on above: Expected: 07/15/2024 , Expires: 10/14/2024 Start: 07-15-2024 End: 10-14-2024 LIPID PANEL, NONFASTING LIPID PANEL, NONFASTING Lab Routine Dyslipidemia Expected: 07/15/2024, Expires: 10/14/2024 [facility] Comment on above: Expected: 07/15/2024 , Expires: 10/14/2024 Start: 07-15-2024 End: 10-14-2024 Magnesium [Mass/volume] in Serum or Plasma MAGNESIUM Lab Routine Medication management Expected: 07/15/2024, Expires: 10/14/2024 [facility] Comment on above: Expected: 07/15/2024 , Expires: 10/14/2024 Start: 07-15-2024 End: 10-14-2024 Microalbumin/Creatinine [Mass Ratio] in Urine ALBUMIN/CREATININE RATIO, URINE Lab Routine Type 2 diabetes mellitus with stage 3b chronic kidney disease, with long-term current use of insulin (HCC) Expected: 07/15/2024, Expires: 10/14/2024 [facility] Comment on above: Expected: 07/15/2024 , Expires: 10/14/2024 Start: 07-15-2024 End: 10-14-2024 Urinalysis complete panel - Urine URINALYSIS, WITH MICROSCOPIC Lab Routine Type 2 diabetes mellitus with stage 3b chronic kidney disease, with long-term current use of insulin (HCC) Expected: 07/15/2024, Expires: 10/14/2024 [facility] Comment on above: Expected: 07/15/2024 , Expires: 10/14/2024 Start: 07-11-2024 Anxiety Screening Anxiety Screening [facility] Start: 07-11-2024 Depression Screening Depression Scre ening [facility] Start: 07-11-2024 Diabetic foot examination Diabetic Foot Exam [facility] Start: 07-09-2024 Hemoglobin A1c measurement HbA1C [facility] Start: 07-06-2024 Hepatitis B screening Urine Al bumin:Creatinine Ratio [facility] Start: 07-06-2024 Hepatitis B surface antibody level LDL Cholesterol [facility] Start: 06-26-2024 Glaucoma screening Dilated Retinal E xam [facility] Start: 06-16-2024 [facility] Start: 03-30-2024 RSV Vaccine (1 - 1-d ose 60+ series) RSV Vaccine (1 - 1-dose 60+ series) [facility] Comment on above: Postponed from 12/28 (Declined at this time) Start: 03-24-2024 Hepatitis B surface antibody level LDL Cholesterol [facility] Start: 03-20-2024 Advance Directive Discussion Advance Directive Discussion [facility] Start: 02-18-2024 [facility] Start: 01-15-2024 End: 01-15-2024 Patient encounter procedure 01/15/2024 11:40 AM EDT Office Visit Family Medicine [facility] [address] [place] [address] Judi Rice PA-C [address] [place] [address] 6 month follow up Family Jennifer Taboroster Comment on above: 6 month follow up Start: 01-12-2024 End: 01-12-2024 Patient encounter procedure 01/12/2024 11:00 AM EDT Office Visit Family Jennifer [facility] [address] [place] [address] Taye Horan MD [address] [place] [address] 6 month follow up Family Jennifer [facility] Comment on above: 6 month follow up Start: 01-06-2024 Hemoglobin A1c measurement HbA1C [facility] Start: 12-29-2023 End: 03-29-2024 Basic metabolic 2000 panel - Serum or Plasma BASIC METABOLIC PANEL Lab Routine Type 2 diabetes mellitus with stage 3b chronic kidney disease, with long-term current use of insulin (HCC) Essential hypertension Dyslipidemia Hypertensive chronic kidney disease with stage 1 through stage 4 chronic kidney disease, or unspecified chronic kidney disease Stage 3b chronic kidney disease (HCC) Expected: 12/29/2023, Expires: 03/29/2024 [facility] Work Phone: Comment on above: Expected: 12/29/2023 , Expires: 03/29/2024 Start: 12-29-2023 End: 03-29-2024 CBC W Auto Differential panel - Blood COMPLETE BLOOD COUNT AND DIFFERENTIAL Lab Routine Type 2 diabetes mellitus with stage 3b chronic kidney disease, with long-term current use of insulin (HCC) Anemia of chronic disease Stage 3b chronic kidney disease (HCC) Expected: 12/29/2023, Expires: 03/29/2024 [facility] Comment on above: Expected: 12/29/2023 , Expires: 03/29/2024 Start: 12-29-2023 End: 03-29-2024 Hemoglobin A1c in Blood HEMOGLOBIN A1C Lab Routine Type 2 diabetes mellitus with stage 3b chronic kidney disease, with long-term current use of insulin (HCC) Expected: 12/29/2023, Expires: 03/29/2024 [facility] Comment on above: Expected: 12/29/2023 , Expires: 03/29/2024 Start: 12-29-2023 End: 03-29-2024 LIPID PANEL, NONFASTING LIPID PANEL, NONFASTING Lab Routine Type 2 diabetes mellitus with stage 3b chronic kidney disease, with long-term current use of insulin (HCC) Essential hypertension Dyslipidemia Expected: 12/29/2023, Expires: 03/29/2024 [facility] Comment on above: Expected: 12/29/2023 , Expires: 03/29/2024 Start: 11-19-2023 Covid-19 Vaccine () Covid-19 Vaccine () [facility] Start: 11-19-2023 Covid-19 Vaccine () Covid-19 Vaccine () [facility] Start: 11-19-2023 Influenza vaccination Influenza Vacc ine (#1) [facility] Start: 11-03-2023 Hepatitis B surface antibody level LDL CHOLESTEROL [facility] Start: 10-23-2023 End: 10-23-2023 Patient encounter procedure 10/23/2023 1:00 PM EDT Office Visit Podiatry [address] [place] [address] Rachid Mane [address] [place] [address] 1 yr follow up Podiatry Comment on above: 1 yr follow up Start: 10-19-2023 End: 10-19-2023 Patient encounter procedure 10/19/2023 2:00 PM EDT Office Visit Family Jennifer [place] [address] [place] [address] Judi Rice PA-C [address] [place] [address] Hospital Follow Up (TCM thru 10/22) Family Jennifer [place] Comment on above: Hospital Follow Up ( TCM thru 10/22) Start: 09-22-2023 Hemoglobin A1c measurement HbA1C [facility] Start: 07-09-2023 3 comp foot exam completed DIABETIC FOOT EXAM [facility] Start: 07-09-2023 Diabetic foot examination Diabetic Foot Exam [facility] Start: 07-03-2023 Hepatitis B screening URINE AL BUMIN:CREATININE RATIO [facility] Start: 07-02-2023 Hepatitis B surface antibody level LDL CHOLESTEROL [facility] Start: 06-15-2023 Covid-19 Vaccine () Covid-19 Vaccine () [facility] Start: 05-05-2023 Hemoglobin A1c measurement HbA1C [facility] Start: 05-05-2023 Hemoglobin A1c/Hemoglobin.total in Blood HBA1C [facility] Start: 03-29-2023 Glaucoma screening Dilated Retinal E xam [facility] Start: 03-29-2023 Hepatitis C antibody , confirmatory test DILATED RETINAL EXAM [facility] Start: 03-20-2023 Advance Directive Discussion Advance Directive Discussion [facility] Start: 03-20-2023 Behavioral Health Screening Behavioral Health Screening [facility] Start: 03-20-2023 Depression Assessment Depression Ass essment [facility] Start: 02-24-2023 End: 04-26-2023 Basic metabolic 2000 panel - Serum or Plasma BASIC METABOLIC PNL Lab Routine Type 2 diabetes mellitus with stage 3b chronic kidney disease, with long-term current use of insulin (HCC) Essential hypertension Dyslipidemia Stage 3b chronic kidney disease (HCC) Expected: 02/24/2023, Expires: 04/26/2023 [facility] Work Phone: Comment on above: Expected: 02/24/2023 , Expires: 04/26/2023 Start: 02-24-2023 End: 04-26-2023 CBC W Auto Differential panel - Blood CBC + DIFF Lab Routine Type 2 diabetes mellitus with stage 3b chronic kidney disease, 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) Anemia of chronic disease Expected: 02/24/2023, Expires: 04/26/2023 [facility] Work Phone: Comment on above: Expected: 02/24/2023 , Expires: 04/26/2023 Start: 02-24-2023 End: 04-26-2023 Hemoglobin A1c in Blood HGB A1C Lab Routine Type 2 diabetes mellitus with stage 3b chronic kidney disease, with long-term current use of insulin (HCC) Expected: 02/24/2023, Expires: 04/26/2023 [facility] Work Phone: Comment on above: Expected: 02/24/2023 , Expires: 04/26/2023 Start: 02-24-2023 End: 04-26-2023 LIPID PANEL, NONFASTING LIPID PANEL, NONFASTING Lab Routine Type 2 diabetes mellitus with stage 3b chronic kidney disease, with long-term current use of insulin (HCC) Essential hypertension Dyslipidemia Expected: 02/24/2023, Expires: 04/26/2023 [facility] Work Phone: Comment on above: Expected: 02/24/2023 , Expires: 04/26/2023 Start: 02-24-2023 End: 04-26-2023 Magnesium [Mass/volume] in Serum or Plasma MAGNESIUM BLD Lab Routine Hypomagnesemia Expected: 02/24/2023, Expires: 04/26/2023 [facility] Work Phone: Comment on above: Expected: 02/24/2023 , Expires: 04/26/2023 Start: 12-31-2022 Hemoglobin A1c/Hemoglobin.total in Blood HBA1C [facility] Start: 11-18-2022 Covid-19 Vaccine ( season) Covid-19 Vaccine () [facility] Start: 11-18-2022 Influenza vaccination C [facility] Start: 11-02-2022 Hepatitis B screening URINE AL BUMIN:CREATININE RATIO [facility] Start: 11-02-2022 Hepatitis B surface antibody level LDL CHOLESTEROL [facility] Start: 10-28-2022 End: 2022 Basic metabolic 2000 panel - Serum or Plasma BASIC METABOLIC PNL Lab Routine Type 2 diabetes mellitus with stage 3b chronic kidney disease, with long-term current use of insulin (HCC) Expected: 10/28/2022, Expires: 2022 [facility] Work Phone: Comment on above: Expected: 10/28/2022 , Expires: 2022 Start: 10-28-2022 End: 2022 Hemoglobin A1c in Blood HGB A1C Lab Routine Type 2 diabetes mellitus with stage 3b chronic kidney disease, with long-term current use of insulin (HCC) Expected: 10/28/2022, Expires: 2022 [facility] Work Phone: Comment on above: Expected: 10/28/2022 , Expires: 2022 Start: 10-28-2022 End: 2022 LIPID PANEL, NONFASTING LIPID PANEL, NONFASTING Lab Routine Type 2 diabetes mellitus with stage 3b chronic kidney disease, with long-term current use of insulin ([facility]) Dyslipidemia Essential hypertension Expected: 10/28/2022, Expires: 2022 [facility] Work Phone: Comment on above: Expected: 10/28/2022 , Expires: 2022 Start: 10-28-2022 End: 2022 Magnesium [Mass/volume] in Serum or Plasma MAGNESIUM BLD Lab Routine Hypomagnesemia Expected: 10/28/2022, Expires: 2022 [facility] Work Phone: Comment on above: Expected: 10/28/2022 , Expires: 2022 Start: 10-11-2022 3 comp foot exam completed DIABETIC FOOT EXAM [facility] Start: 07-07-2022 3 comp foot exam completed DIABETIC FOOT EXAM [facility] Start: 06-07-2022 COVID-19 VACCINE (6 - Moderna series) COVID-19 VACCINE (6 - Moderna series) [facility] Start: 05-10-2022 Hepatitis B surface antibody level LDL CHOLESTEROL [facility] Start: 05-05-2022 Hemoglobin A1c/Hemoglobin.total in Blood HBA1C [facility] Start: 04-01-2022 Hepatitis C antibody , confirmatory test DILATED RETINAL EXAM [facility] Start: 03-20-2022 ADVANCE DIRECTIVE DISCUSSION ADVANCE DIRECTIVE DISCUSSION [facility] Start: 03-20-2022 DEPRESSION ASSESSMENT DEPRESSION ASS ESSMENT [facility] Start: 01-12-2022 Hepatitis B screening URINE AL BUMIN:CREATININE RATIO [facility] Start: 11-18-2021 Influenza vaccination INFLUENZA (#1) [facility] Start: 11-07-2021 Hemoglobin A1c/Hemoglobin.total in Blood HBA1C [facility] Start: 10-01-2021 COVID-19 VACCINE (5 - Booster for Moderna series) COVID-19 VACCINE (5 - Booster for Moderna series) [facility] Start: 08-07-2021 End: 10-07-2021 Magnesium [Mass/volume] in Serum or Plasma MAGNESIUM BLD Lab Routine Hypomagnesemia Expected: 08/07/2021, Expires: 10/07/2021 [facility] Work Phone: Comment on above: Expected: 08/07/2021 , Expires: 10/07/2021 Start: 06-28-2021 End: 06-28-2021 Colonoscopy flx dx w/collj spec when pfrmd COLONOSCOPY DIAGNOSTIC HISTORY OF COLON POLYPS 06/28/2021 7:52 AM EDT [facility] Start: 06-17-2021 Bacteria identified in Blood by Culture Blood Culture [facility] Work Phone: Start: 06-17-2021 Bacteria identified in Urine by Culture Urine Culture [facility] Work Phone: Start: 05-14-2021 COVID-19 VACCINE (4 - Booster for Moderna series) COVID-19 VACCINE (4 - Booster for Moderna series) [facility] Start: 03-20-2021 ADVANCE DIRECTIVE DISCUSSION ADVANCE DIRECTIVE DISCUSSION [facility] Start: 03-20-2021 DEPRESSION ASSESSMENT DEPRESSION ASS ESSMENT [facility] Start: 02-26-2021 3 comp foot exam completed DIABETIC FOOT EXAM [facility] Start: 08-23-2019 Creatinine measurement Creatinine mo nitoring [facility] Start: 08-23-2019 Lipid panel Lipid screen [facility] Start: 08-23-2019 Potassium monitoring Potassium monit oring [facility] Start: 08-15-2018 Annual Wellness Visi t (AWV) Annual Wellness Visit (AWV) [facility] Start: 1996 Hepatitis B Vaccine (1 of 3 - Risk 3-dose series) Hepatitis B Vaccine (1 of 3 - Risk 3-dose series) [facility] Start: 1996 RSV Vaccine (1 - 1-d ose 60+ series) RSV Vaccine (1 - 1-dose 60+ series) [facility] Start: 1948 Depression Screen Depression Screen [facility] End: 06-28-2021 Glucose [Mass/volume] in Serum or Plasma POCT Glucose Point of Care Testing Routine One Time for 1 Occurrences starting 06/28/2021 until 06/28/2021 [facility] Work Phone: Comment on above: One Time for 1 Occur rences starting 06/28/2021 until 06/28/2021 Patient Education [facility] Work Phone: Patient referral [facility] Work Phone: End: 02-13-2025 XR Chest PA and Lateral XR CHEST 2V FRONTAL/LAT Radiology Routine COVID-19 SOB (shortness of breath) 1 Occurrences starting 01/15/2024 until 02/13/2025 [facility] Work Phone: Comment on above: 1 Occurrences starti ng 01/15/2024 until 02/13/2025 XR Chest PA and Lateral XR CHEST 2V FRONTAL/LAT Radiology Routine COVID-19 SOB (shortness of breath) 01/15/2024 12:39 PM EDT [facility] Immunizations Immunization Date Immunization Notes Care Provider Jaime wong 12-19-2023 influenza virus vacc ine, unspecified formulation Taye Horan MD Work Phone: [facility] 04-03-2023 respiratory syncytia l virus (RSV) vaccine, adjuvanted (AREXVY) Judi Rice PA-C Work Phone: [facility] 02-14-2023 COVID-19 vaccine, ag e 12+ yr, season (MODERNA) Taye Horan MD Work Phone: [facility] 12-26-2022 influenza, high dose seasonal, preservative-free Taye Horan MD Work Phone: [facility] 12-26-2022 influenza virus vacc ine, unspecified formulation Taye Horan MD Work Phone: [facility] 07-08-2022 pneumococcal Conjuga te, unspecified formulation Taye Horan MD Work Phone: [facility] Work Phone: 07-08-2022 pneumococcal (PCV20) vaccine, 20 valent (PREVNAR 20) Taye Horan MD Work Phone: [facility] 02-17-2022 tetanus toxoid, redu raj diphtheria toxoid, and acellular pertussis vaccine, adsorbed Taye Horan MD Work Phone: [facility] 12-21-2021 influenza, high dose seasonal, preservative-free Marcelina Garcia RN [facility] Work Phone: 12-21-2021 influenza virus vacc ine, unspecified formulation Marcelina Garcia RN [facility] 01-11-2021 COVID-19 vaccine, fu ll dose (MODERNA) Kourtney Jerry RN Work Phone: [facility] 11-24-2020 influenza, high dose seasonal, preservative-free Kourtney Jerry RN Work Phone: [facility] 05-06-2020 COVID-19 vaccine, fu ll dose (MODERNA) Kourtney Jerry RN Work Phone: [facility] Work Phone: 04-08-2020 COVID-19 vaccine, fu ll dose (MODERNA) Kourtney Jerry RN Work Phone: [facility] 12-04-2019 influenza, high dose seasonal, preservative-free Kourtney Jerry RN Work Phone: [facility] 12-26-2018 influenza, high dose seasonal, preservative-free Kourtney Jerry RN Work Phone: [facility] 09-03-2018 pneumococcal conjuga te vaccine, 13 valent Kourtney Jerry RN Work Phone: [facility] 01-26-2018 zoster vaccine recombinant Kourtney Jerry RN Work Phone: [facility] Work Phone: 12-13-2017 influenza virus vacc ine, unspecified formulation Kourtney Jerry RN Work Phone: [facility] Work Phone: 12-13-2017 influenza, high dose seasonal, preservative-free Meir Sethi MD Work Phone: [facility] Work Phone: 10-23-2017 zoster vaccine recombinant Kourtney Jerry RN Work Phone: [facility] Work Phone: 12-19-2016 influenza, high dose seasonal, preservative-free Meir Sethi MD Work Phone: [facility] Work Phone: 08-01-2016 pneumococcal conjuga te vaccine, 13 valent Meir Sethi MD Work Phone: [facility] 08-01-2016 pneumococcal polysaccharide vaccine, 23 valent Kourtney Jerry RN Work Phone: [facility] Work Phone: 11-24-2015 influenza, high dose seasonal, preservative-free Meir Sethi MD Work Phone: [facility] Work Phone: 11-24-2015 tetanus toxoid, redu raj diphtheria toxoid, and acellular pertussis vaccine, adsorbed Kourtney Jerry RN Work Phone: [facility] Work Phone: 07-27-2015 tetanus toxoid, adsorbed David Rice PA-C Work Phone: [facility] 07-27-2015 tetanus toxoid, unspecified formulation Meir Sethi MD Work Phone: [facility] 01-16-2015 Influenza Vaccine, unspecified formulation Meir Sethi MD Work Phone: [facility] Work Phone: 12-17-2014 pneumococcal polysaccharide vaccine, 23 valent Meir Sethi MD Work Phone: [facility] Work Phone: 12-23-2013 Influenza Vaccine, unspecified formulation Meir Sethi MD Work Phone: [facility] [employer] 07-26-2010 zoster vaccine, live Meir Sethi MD Work Phone: [employer] Work Phone: Payers Date Payer Category Payer Self-pay [id number] 2023 Unknown [id number] 2015 Medicare [id number] 2011 Private Health Insurance [employer] E [id number] 2011 Unknown [employer] LIFE [employer] LIF E SUPPLEMENT [id number] 2011-Present [phone] [address] [place] [address] Indemnity [id number] 2011 Unknown [id number] 2011 Unknown [id number] 2001 Medicare MEDICARE MEDICAR E A AND B [id number] 2001-Present [phone] [place] [address] Medicare [id number] 2001 Medicare [id number] 2001 Medicare [id number] 1936 Unknown [id number] 1936 Unknown [id number] [id number] 1936 Unknown [id number] [id number] 1936 Unknown [id number] [id number] 1936 Unknown [id number] [id number] Unknown [id number] Unknown [id number] Unknown [id number] Unknown [id number] Unknown [id number] Unknown [id number] Unknown [id number] Unknown [id number] Unknown [id number] Social History Date Type Detail Facility Start: 06-17-2021 End: 09-17-2022 Tobacco smoking status NHIS Unknown if ever smoked [facility] Start: 05-17-2020 Spouse/ Signif icant Other [facility] Start: 10-08-2019 Cigars [facility] Start: 1935 Sex Assigned At Male W [facility] Start: 11-10-2021 End: 06-16-2024 Tobacco smoking status NHIS Smokes tobacco daily [facility] Work Phone: History of tobacco use Cigar Smoker [facility] Work Phone: Start: 03-23-2021 End: 07-16-2024 Alcohol intake Current drinker of alcohol (finding) [facility] Start: 1935 Sex Assigned At Not on file [facility] Start: 05-17-2021 End: 11-10-2021 Exposure to SARS-CoV-2 (event) Not sure [facility] Start: 02-01-2018 Tobacco smoking stat us TXIS Occasional tobacco smoker apprupt [facility] Start: 02-01-2018 End: 11-10-2021 Tobacco use and exposure Smokeless tobacco non-user [facility] Work Phone: Start: 07-26-2016 History SDOH [facility] Work [facility]: Start: 11-10-2021 Tobacco Comment 1/day [facility] Start: 07-08-2022 End: 10-19-2022 History of Social function [facility] Work Phone: Start: 07-08-2022 End: 10-19-2022 Tobacco use panel [facility] Work Phone: Adult Depression Screening Assessment 1 [facility] Work Phone: (I/We) worried wheth er (my/our) food would run out before (I/we) got money to buy more. Never true [facility] In the past 12 month s, was there a time when you were not able to pay the mortgage or rent on time? No [facility] How hard is it for y ou to pay for the very basics like food, housing, medical care, and heating Not very hard [facility] Start: 06-16-2024 Sex Male (finding) [facility] Medical Equipment Procedure Code Equipment Code Equipment Original Text Equipment Identifier Dates Cystoscopy, with retrograde pyelogram, ureteroscopy, laser procedure, and stent inser STENT,URETERAL PIGTAIL [id number] FDA Start: 10-20-2023 Cystoscopy, with retrograde pyelogram and ureteral stent insertion STENT,URETERAL PIGTAIL [id number] FDA Start: 10-09-2023 [id number], [id number], [id number], [id number], [id number], [id number], [id number], [id number], [id number], [id number], [id number], [id number], [id number] Start: 07-23-2018 End: 10-03-2024 Comment on above: Test blood sugar(s) 4 times daily. Dx: Type 2 DM - Controlled E11.9 Insulin: Yes 1 Each four times da sharon. 1 Each four times da sharon. Dx: Type 2 DM - Controlled E11.9 Insulin: Yes Goals Date Patient Goal Desired Activity /State Personal health goal Comment on above: Formatting of this n ote might be different from the original. I want to get up every morning. Personal health goal Comment on above: Formatting of this n ote might be different from the original. Patient want to wakes up every morning and stay healthy. Personal health goal Comment on above: Formatting of this n ote might be different from the original. Patient has the following Chronic Kidney Disease goals: Two PCP visits annually, Nephrology visit annually, and Renal panel twice annually Education provided and reviewed with patient - Renal Diet Basics Patient will meet these goals by: 03/19/24 (describe interventions done by PCC) Personal health goal Comment on above: Formatting of this n ote might be different from the original. Patient would like to keep breathing! Living enjoying life. Personal health goal Comment on above: Formatting of this n ote might be different from the original. Patient just wants to continue to wake up every morning. Comment on above: Formatting of this n ote might be different from the original. Would like to have BS decrease after Cipro Comment on above: Formatting of this n ote might be different from the original. I want to get up every morning. Comment on above: Formatting of this n ote might be different from the original. Patient want to wakes up every morning and stay healthy. Functional Status Date Assessment Result Facility 12-11-2013 Are you deaf, or do you have serious difficulty hearing No 12/11/2013 9:46 AM EDT Gi Pelayo MA [facility] 12-11-2013 Are you blind, or do you have serious difficulty seeing, even when wearing glasses No 12/11/2013 9:46 AM EDT Gi Pelayo MA [facility] 12-11-2013 Do you have serious difficulty walking or climbing stairs No 12/11/2013 9:46 AM EDT Gi Pelayo MA [facility] 12-11-2013 Do you have difficul ty dressing or bathing No 12/11/2013 9:46 AM EDT Gi Pelayo MA [facility] 12-11-2013 Because of a physica l, mental, or emotional condition, do you have difficulty doing errands alone such as visiting a physician's office or shopping No 12/11/2013 9:46 AM EDT Gi Pelayo MA [facility] Mental Status Date Assessment Result Facility 02-18-2024 Cognitive function Level Of Cons ciousness Awake;Alert;Appropriate;Fol lows Commands [facility] Work Phone: 12-11-2013 Because of a physica l, mental, or emotional condition, do you have serious difficulty concentrating, remembering, or making decisions No 12/11/2013 9:46 AM EDT Gi Pelayo MA [facility] Clinical Notes 05-07-2019 to 10-03-2024 Telephone Encounter - Gladis Adhikari RN - 10/03/2024 1:10 PM EDTTelephone Encounter - Gladis Adhikari RN - 10/03/2024 1:10 PM EDT Note Date & Type Note Facility 10-03-2024 Telephone encounter Note Form atting of this note might be different from the original. Patient calling and states he had an order for a new glucometer but wants to continue using his old one. Pt requesting refill of Countour test strips for his older glucometer, if possible. Script pended. Gladis Adhikari RN [facility] 10-03-2024 Miscellaneous Notes Formattin g of this note might be different from the original. Patient calling and states he had an order for a new glucometer but wants to continue using his old one. Pt requesting refill of Countour test strips for his older glucometer, if possible. Script pended. Gladis Adhikari RN documented in this encounter [facility] 10-03-2024 Evaluation note Diagnosis Type 2 diabetes mellitus with stage 3 chronic kidney disease, with long-term current use of insulin, unspecified whether stage 3a or 3b CKD (HCC) documented in this encounter [facility]06-30-2025 Telephone encounter Note* Telephone Encounter - Hyun Dave RN - 09/16/2024 4:24 PM EDT Patient calls to check on status of request below. Current BS reading is 64. Reports he has been eating more than usual as his keeps pushing it. Reviewed care advice for low blood sugar readings with verbalized understanding. Patient reports he feels fine so doesn't really think it is low but is asking if provider could please send in the prescription today so he can quit poking himself so frequently and his can be reassured. Hyun Dave RN [facility]06-30-2025 Miscellaneous Notes* Telephone Encounter - Hyun Dave RN - 09/16/2024 4:24 PM EDT Patient calls to check on status of request below. Current BS reading is 64. Reports he has been eating more than usual as his keeps pushing it. Reviewed care advice for low blood sugar readings with verbalized understanding. Patient reports he feels fine so doesn't really think it is low but is asking if provider could please send in the prescription today so he can quit poking himself so frequently and his can be reassured. Hyun Dave RN * Telephone Encounter - Luna Garcia LPN - 09/16/2024 3:00 PM EDT Patient calling this morning at 8 am his blood sugar was 70, he had no symptoms at all. He took hismedications, metformin, glimepiride and Humalog 6 units, he ate 2 pancakes and coffee. At 110 pm his blood sugar was 39 he had eaten salad with ham and egg roll at noon for lunch. He did not take anyHumalog at lunch time. He was not having any symptoms. At 150 pm recheck blood sugar was 60 still no symptoms. At 245 pm rechecked blood sugar was 41. Asked patient how old was his meter,patient saidhis glucose meter is 6 years old, his test strips are new. Told patient asking PCP to send new generic meter and test strips to [facility] pharmacy since he did not know which meter is covered. Pending generic meter and strips to file. Please advise [facility] Telephone encounter Note * Telephone Encounter - Luna Garcia LPN - 09/16/2024 3:00 PM EDT Patient calling this morning at 8 am his blood sugar was 70, he had no symptoms at all. He took hismedications, metformin, glimepiride and Humalog 6 units, he ate 2 pancakes and coffee. At 110 pm his blood sugar was 39 he had eaten salad with ham and egg roll at noon for lunch. He did not take anyHumalog at lunch time. He was not having any symptoms. At 150 pm recheck blood sugar was 60 still no symptoms. At 245 pm rechecked blood sugar was 41. Asked patient how old was his meter,patient saidhis glucose meter is 6 years old, his test strips are new. Told patient asking PCP to send new generic meter and test strips to [facility] since he did not know which meter is covered. Pending generic meter and strips to file. Please advise [facility]06-26-2025 Telephone encounter Note* Telephone Encounter - Madison Woodard RN - 09/12/2024 9:17 AM EDT Pt called in and was requesting a refill on his Glimepiride. I let Pt know that it was just sent inon 07/16/24 to [facility] in [place]. I told him to call the pharmacy because they had probably put it on hold since he still had refills from another time. Pt states he will call in. If Pt cannot get refills he will call back in. Madison Woodard RN [facility]06-26-2025 Miscellaneous Notes* Telephone Encounter - Madison Woodard RN - 09/12/2024 9:17 AM EDT Pt called in and was requesting a refill on his Glimepiride. I let Pt know that it was just sent inon 07/16/24 to [facility] in [place]. I told him to call the pharmacy because they had probably put it on hold since he still had refills from another time. Pt states he will call in. If Pt cannot get refills he will call back in. Madison Woodard RN documented in this encounter[facility]25 NoteHNO ID: [id number] Author: EVANGELISTA FISHER LPN Service: ? Author Type: LICENSED NURSE Type: Progress Notes Filed: 07/23/2024 14:53 Note Text: Scan on 07/23/2024 1:34 PM by Provider, External, PA-C: [facility] History of Present illness Narrative* Evangelista Fisher LPN - 07/23/2024 2:53 PM EDT Scan on 07/23/2024 1:34 PM by Provider, ROWDY Fountain: Consultation - Ophthalmology documented in this [facility]-29-[facility] Instructions* Patient Instructions* Judi Rice PA-C - 07/16/2024 12:27 PM EDT Screening schedule The following prevention plan is recommended: Covid-19 Vaccine() due on 11/19/2023 Dilated Retinal Exam due on 06/26/2024 Diabetic Foot Exam due on 07/11/2024 WHAT YOU CAN DO TO PREVENT FALLS Many falls can be prevented. By making some changes, you can lower your chances of falling. Four things YOU can do to prevent falls for you* and your caregiver 1. Begin a regular exercise program Exercise is one of the most important ways to lower your chances of falling. It makes you stronger and helps you feel better. Exercises that improve balance and coordination (like Sean Chi) are the most helpful. Lack of exercise leads to weakness and increases your chances of falling. Ask your doctor or health care provider about the best type of exercise program for you. 2. Have your health care provider review your medicines Have your doctor or pharmacist review all the medicines you take, even [id number] medicines. As you get older, the way medicines work in your body can change. Some medicines, or combinations of medicines, can make you sleepy or dizzy andcan cause you to fall. 3. Have your vision checked Have your eyes checked by an eye doctor at least once a year. You may be wearing the wrong glasses or have a condition like glaucoma or cataracts that limits your vision. Poor vision can increase your chances of falling. 4. Make your home safer About half of all falls happen at home. To make your home safer: Remove things you can trip over (like papers, books, clothes, and shoes) from stairs and places where you walk. Remove small throw rugs or use double-sided tape to keep the rugs from slipping. Keep items you use often in cabinets you can reach easily without using a step stool. Have grab bars put in next to your toilet and in the tub or shower. Use non-slip mats in the bathtub and on shower floors. Improve the lighting in your home. As you get older, you need brighter lights to see well. Hang light-weight curtains or shades to reduce glare. Have handrails and lights put in on all staircases. Wear shoes both inside and outside the house. Avoid going barefoot or wearing slippers. For more information, contact: Centers for Disease Control and Prevention www.cdc.gov/injury * This information may not apply if you have certain medical conditions. documented in this encounter[facility]04-29-2025 NoteHNO ID: [id number] Author: JUDI RICE PA-C Service: ? Author Type: Physician Care Services Manager Type: Progress Notes Filed: 07/16/2024 13:22 Note Text: Juan M Rodriguez is a 88 year old male here for a Medicare wellness visit. Medicare Health Risk Assessment General Health Good Exercise: Minutes/Day none Exercise: Days/Week 0 Alcohol: Daily Use no Alcohol: Drinks/Day 0 Alcohol: 6 or more drinks never Feel off balance No- rare Concerns: Teeth/Dentures Yes- trouble finding dentist he likes Concerns: Sexual function no Troubled by feelings no Frequency: Eating healthy diet yes ADLs requiring help no Safety precautions in home/vehicle yes Smoke, vape, chews tobacco Yes-cigar Difficulty hearing yes Difficulty seeing No Current Providers Specialists: I have reviewed specialist-related care of the patient in the medical record. Medical/Family history review Reviewed and updated problem list, medical/surgical/family/social history, medications, and allergies. Opioid use review Opioid Medications (last 90 days) No data to display Anxiety/Depression screening PHQ-2 Score: 0 (Lower risk for depression) ALON-7 Score: 11 (Moderate Anxiety) Recommendation: no further intervention at this time Cognitive screening Mini Cog Score: 5 Cognitive screening reviewed and No further action needed (score 3-5). Functional Observation Was the patient's Timed Up AND Go test unsteady or >= 12 seconds? No Advance Care Planning Surrogate decision maker and/or advance care plan documented Measurements BP 112/60 (BP Site: Left Arm, BP Position: Sitting, BP Cuff Size: Large Adult) Pulse 81 Temp 36.1 ?C (97 ?F) Resp 18 Ht 183 cm (6' 0.05) Wt 93.4 kg (206 lb) SpO2 96% BMI 27.90 kg/m? Vision Screening: Follows with optometry/ophthalmology Assessment/Plan Medicare annual wellness visit, subsequent (Z00.00) - Counseled on healthy diet and regular exercise - Fall avoidance information provided - Personalized prevention plan provided Chief Complaint Patient presents with: Medicare Wellness Exam HPI Juan M Rodriguez is a 88 year old male who presents here today for extensive exam. Patient with Hx pf HTN, dyslipidemia, BPH, DM 2, GERD, CKD, smoker, anemia of chronic disease, BPH as well as those reviewed and addressed below and in ROS. Follow-Up: - Juan M prefers visits every 4 months instead of 6 months due to issues arising in the fifth and sixth months. - Reports frustration due to living with granddaughter, her , and their dog for the past 6 months; describes them as a pain in the butt. - Acknowledges being a worrier but states, I don't let stuff like that affect me. I take care of it. - Denies abnormal weight loss, fevers, fatigue, or weakness. - Has lost weight intentionally, going from 225 lbs to 212 lbs by cutting back on food. - Reports occasional nausea, taking medication once a month. - Denies significant cough, wheezing, or dyspnea; uses albuterol inhaler once a day. - Denies interest in pulmonary function test. - Reports poor sleep quality, difficulty falling and staying asleep, and is interested in trying melatonin. - Last colonoscopy was performed by a friend who is the head of surgery at [facility] in [place]. Last 3 Encounter Wt Readings: Date: Wt: 07/16/2024 93.4 kg (206 lb) 01/15/2024 99.3 kg (219 lb) 07/12/2023 103 kg (227 lb) Past medical history, appointments, medications, allergies reviewed. Previous Medical History PAST MEDICAL HISTORY Diagnosis Date Acute pancreatitis (HCC) Advance directive discussed with patient 07/07/2021 Discussed 06/2021 Anemia of chronic disease 11/03/2019 Benign prostatic hyperplasia with lower urinary tract symptoms 09/03/2018 COVID-19 virus infection 03/23/2021 03/19/2021 Diabetic eye exam (HCC) 05/07/2019 Last done: 04/30/2019 Diarrhea 07/08/2022 Consult Gastro: Dr. Sainz patient cancelled appt on 08/31/2022 and did not reschedule. Saw gastro in [place] Diverticulosis 07/08/2022 Dyslipidemia 09/03/2018 Essential hypertension 09/03/2018 GERD without esophagitis 09/03/2018 History of colonic polyps 09/03/2018 Last colonoscopy 08/2017: Needs repeat 3 yrs History of COVID-19 03/23/2021 03/19/2021 History of kidney stones 09/03/2018 Hypertensive chronic kidney disease with stage 1 through stage 4 chronic kidney disease, or unspecified chronic kidney disease 09/03/2018 Hypomagnesemia 01/23/[address] 07/07/2021 DPA: [facility] () Medicare annual wellness visit, subsequent 09/03/2018 Medicare Part B: 12/18/2001 Last done 09/03/2018 Nausea 07/08/2022 Consult Gastro: Dr. Sainz Portal hypertension (HCC) Sepsis (HCC) 2016 Smoker 09/03/2018 Started at the age of 31 up to 1 cigar a day. Stage 3b chronic kidney disease (HCC) 10/01/2019 Type 2 diabetes mellitus with stage 3b chronic kidney disease, with long-term (more content not included)...[facility]04[facility] History of Present illness Narrative* Judi Rice PA-C - 07/16/2024 11:51 AM EDT Images from the original note were not included. Juan M Rodriguez is a 88 year old male here for a Medicare wellness visit. Medicare Health Risk Assessment General Health Good Exercise: Minutes/Day none Exercise: Days/Week 0 Alcohol: Daily Use no Alcohol: Drinks/Day 0 Alcohol: 6 or more drinks never Feel off balance No- rare Concerns: Teeth/Dentures Yes- trouble finding dentist he likes Concerns: Sexual function no Troubled by feelings no Frequency: Eating healthy diet yes ADLs requiring help no Safety precautions in home/vehicle yes Smoke, vape, chews tobacco Yes-cigar Difficulty hearing yes Difficulty seeing No Current Providers Specialists: I have reviewed specialist-related care of the patient in the medical record. Medical/Family history review Reviewed and updated problem list, medical/surgical/family/social history, medications, and allergies. Opioid use review Opioid Medications (last 90 days) No data to display Anxiety/Depression screening PHQ-2 Score: 0 (Lower risk for depression) ALON-7 Score: 11 (Moderate Anxiety) Recommendation: no further intervention at this time Cognitive screening Mini Cog Score: 5 Cognitive screening reviewed and No further action needed (score 3-5). Functional Observation Was the patient's Timed Up & Go test unsteady or >= 12 seconds? No Advance Care Planning Surrogate decision maker and/or advance care plan documented Measurements BP 112/60 (BP Site: Left Arm, BP Position: Sitting, BP Cuff Size: Large Adult) Pulse 81 Temp 36.1 C (97 F) Resp 18 Ht 183 cm (6' 0.05) Wt 93.4 kg (206 lb) SpO2 96% BMI 27.90 kg/m Vision Screening: Follows with optometry/ophthalmology Assessment/Plan Medicare annual wellness visit, subsequent (Z00.00) - Counseled on healthy diet and regular exercise - Fall avoidance information provided - Personalized prevention plan provided Chief Complaint Patient presents with: Medicare Wellness Exam HPI Juan M Rodriguez is a 88 year old male who presents here today for extensive exam. Patient with Hx pf HTN, dyslipidemia, BPH, DM 2, GERD, CKD, smoker, anemia of chronic disease, BPH as well as those reviewed and addressed below and in ROS. Follow-Up: - Juan M prefers visits every 4 months instead of 6 months due to issues arising in the fifth and sixth months. - Reports frustration due to living with granddaughter, her , and their dog for the past 6 months; describes them as a pain in the butt. - Acknowledges being a worrier but states, I don't let stuff like that affect me. I take care of it. - Denies abnormal weight loss, fevers, fatigue, or weakness. - Has lost weight intentionally, going from 225 lbs to 212 lbs by cutting back on food. - Reports occasional nausea, taking medication once a month. - Denies significant cough, wheezing, or dyspnea; uses albuterol inhaler once a day. - Denies interest in pulmonary function test. - Reports poor sleep quality, difficulty falling and staying asleep, and is interested in trying melatonin. - Last colonoscopy was performed by a friend who is the head of surgery at [facility] in [place]. Last 3 Encounter Wt Readings: Date: Wt: 07/16/2024 93.4 kg (206 lb) 01/15/2024 99.3 kg (219 lb) 07/12/2023 103 kg (227 lb) Past medical history, appointments, medications, allergies reviewed. Previous Medical History PAST MEDICAL HISTORY Diagnosis Date Acute pancreatitis (HCC) Advance directive discussed with patient 07/07/2021 Discussed 06/2021 Anemia of chronic disease 11/03/2019 Benign prostatic hyperplasia with lower urinary tract symptoms 09/03/2018 COVID-19 virus infection 03/23/2021 03/19/2021 Diabetic eye exam (HCC) 05/07/2019 Last done: 04/30/2019 Diarrhea 07/08/2022 Consult Gastro: Dr. Sainz patient cancelled appt on 08/31/2022 and did not reschedule. Saw gastro in [facility] Diverticulosis 07/08/2022 Dyslipidemia 09/03/2018 Essential hypertension 09/03/2018 GERD without esophagitis 09/03/2018 History of colonic polyps 09/03/2018 Last colonoscopy 08/2017: Needs repeat 3 yrs History of COVID-19 03/23/2021 03/19/2021 History of kidney stones 09/03/2018 Hypertensive chronic kidney disease with stage 1 through stage 4 chronic kidney disease, or unspecified chronic kidney disease 09/03/2018 Hypomagnesemia 01/23/[address] 07/07/2021 DPA: [facility] () Medicare annual wellness visit, subsequent 09/03/2018 Medicare Part B: 12/18/2001 Last done 09/03/2018 Nausea 07/08/2022 Consult Gastro: Dr. Sainz Portal hypertension (HCC) Sepsis (HCC) 2016 Smoker 09/03/2018 Started at the age of 31 up to 1 cigar a day. Stage 3b chronic kidney disease (HCC) 10/01/2019 Type 2 diabetes mellitus with stage 3b chronic kidney disease, with long-term current use of insulin (HCC) 09/03/2018 Previous Surgical History PAST SURGICAL HISTORY Procedure Laterality Date CHOLECYSTECTOMY HX 2013 COLONOSCOPY GEN ANES 02/20/2017 COLONOSCOPY SCREENING 06/21/2021 EGD EUS 06/23/2020 PAST SURGICAL HISTORY OF 2017 Left inguinal PAST SURGICAL HISTORY OF 2016 bilatreral cataracts Family History FAMILY HISTORY Problem Relation Age of Onset Hypertension Father Stroke Father Coronary Artery Disease Sister Diabetes Sister COPD Sister Cancer Sister Lung Alzheimer's Disease No Family History Colon Cancer No Family History Prostate Cancer No Family History Breast Cancer No Family History Ovarian cancer No Family History Uterine Cancer No Family History Kidney Disease No Family History Seizures No Family History Thyroid No Family History Patient Allergies ALLERGIES Allergen Reactions Dilaudid [[employer]* Mental Status Change Lisinopril Other: See Comments angioedema Magnesium Oxide Other: See Comments Loose stools, leg and foot pain Penicillins Unknown Current Medications Current Outpatient Medications on File Prior to Visit Medication Sig metFORMIN (GLUCOPHAGE) 1,000 mg tablet Take 1 tablet by mouth two times a day with meals. insulin aspart U-100 (NOVOLOG FLEXPEN U-100 INSULIN) 100 unit/mL (3 mL) Inject 6 Units subcutaneously three times a day before meals. Lancets (MICROLET LANCET) 1 Each four times daily. Dx: Type 2 DM - Controlled E11.9 Insulin: Yes lovastatin (MEVACOR) 20 mg tablet Take 1 tablet by mouth daily at bedtime. blood sugar diagnostic (CONTOUR TEST STRIPS) test strip Test blood sugar(s) 4 times daily. Dx: Type2 DM - Controlled E11.9 Insulin: Yes insulin glargine-yfgn (SEMGLEE) 100 unit/mL (3 mL) insulin pen Inject 25 Units subcutaneously dailyat bedtime. albuterol HFA (VENTOLIN HFA) 90 mcg/actuation inhaler Inhale 2 Puffs as instructed every 4 hours asneeded for wheezing/shortness of breath. Insulin [place], Disposable, (SURE COMFORT PEN NEEDLE) 32 gauge x 5/32 1 Each four times daily. Cholecalciferol, Vitamin D3, 50 mcg (2,000 unit) cap Take 1 capsule by mouth. ferrous sulfate 325 mg (65 mg iron) tablet Take 325 mg by mouth daily with breakfast. aspirin, enteric coated (ASPIRIN, ENTERIC COATED) 81 mg EC tablet Take 1 tablet by mouth once daily. No current facility-administered medications on file prior to visit. Social History Social History Tobacco Use Smoking status: Every Day Types: Cigars Smokeless tobacco: Never Tobacco comments: 1/day Vaping Use Vaping status: Never Used Substance Use Topics Alcohol use: Yes Comment: rare Drug use: Never Review of Symptoms REVIEW OF SYSTEMS GENERAL: No abnormal weight loss, malaise or fevers HEENT: No changes in hearing or vision, no nose bleeds or other nasal problems NECK: Negative for lumps, goiter, pain and significant neck swelling RESPIRATORY: Negative for cough, hemoptysis, wheezing, COPD, dyspnea or shortness of breath CARDIOVASCULAR: Negative for chest pain, leg swelling, CHF or palpitations GI: Negative for abdominal discomfort, blood in stools or black stools, change in bowel habit, heart burn, vomiting and Positive for nausea at times : No history of dysuria, frequency or incontinence MUSCULOSKELETAL: Negative for joint pain or swelling, back pain or muscle pain SKIN: Negative for lesions, rash, and itching PSYCH: Negative for sleep disturbance, mood disorder and recent psychosocial stressors HEMATOLOGY/LYMPHOLOGY: Negative for prolonged bleeding, bruising easily or swollen nodes ENDOCRINE: Negative for cold or heat intolerance, polyuria, polydipsia and goiter NEURO: No history of headaches, syncope, paralysis, seizures or tremors SEE HPI EXAM: BP 112/60 (BP Site: Left Arm, BP Position: Sitting, BP Cuff Size: Large Adult) Pulse 81 Temp 36.1 C (97 F) Resp 18 Ht 183 cm (6' 0.05) Wt 93.4 kg (206 lb) SpO2 96% BMI 27.90 kg/m General Appearance: Well appearing, alert, in no acute distress, well-hydrated, well nourished. andOverweight. Skin: declined. Head: Normocephalic, no masses, lesions, tenderness or abnormalities. Eyes: Anicteric sclera. Pupils are equally round and reactive to light. Extraocular movements are intact. . Ears: External ears normal, canals clear, TMs pearly castro. Nose/Sinuses: Nares normal, septum midline, mucosa normal, no drainage or sinus tenderness. Oropharynx: Lips, mucosa, and tongue normal, teeth and gums normal, oropharynx normal. Neck: Supple, no adenopathy; thyroid symmetric, normal size, no bruits. Lungs: Lungs clear to auscultation. No wheezing, rhonchi, rales.. Heart: RRR without murmur, gallop, or rubs. No ectopy. Abdomen: Normal abdominal exam, Abdomen soft, non-tender. Bowel sounds normal. No masses, organomegaly. Extremities: No deformities, edema, skin discoloration, clubbing or cyanosis. Good capillary refill. Peripheral Pulses: Normal. Neurologic: Gait normal. Reflexes normal and symmetric. Sensation grossly intact.. Feet:Shoes and socks removed, No deformities, ulcers, calluses, normal distal pulses, sensitive to 10 gm monofilament, and vibratory perception decreased b/l Health Maintenance List Covid-19 Vaccine( season) due on 11/19/2023 Dilated Retinal Exam due on 06/26/2024 Diabetic Foot Exam due on 07/11/2024 HbA1C due on 01/09/2025 Urine Albumin:Creatinine Ratio due on 07/10/2025 LDL Cholesterol due on 07/10/2025 Depression Screening due on 07/16/2025 Anxiety Screening due on 07/16/2025 DTaP,Tdap,Td Vaccine(3 - Td or Tdap) due on 02/18/2032 Influenza Vaccine Completed Advance Directive Discussion Completed RSV Vaccine Completed Shingrix Vaccine Completed Pneumococcal Vaccine: 50+ Completed Data reviewed Latest Ref Rng 07/10/2024 WBC 3.70 - 11.00 k/uL 9.80 RBC 4.20 - 6.00 m/uL 4.65 Hemoglobin 13.0 - 17.0 g/dL 12.2 (L) Hematocrit 39.0 - 51.0 % 37.6 (L) MCV 80.0 - 100.0 fL 80.9 MCH 26.0 - 34.0 pg 26.2 MCHC 30.5 - 36.0 g/dL 32.4 RDW-CV 11.5 - 15.0 % 16.9 (H) Platelet Count 150 - 400 k/uL 438 (H) MPV 9.0 - 12.7 fL 10.3 Neut% % 60.0 Abs Neut (ANC) 1.45 - 7.50 k/uL 5.88 Lymph% % 30.0 Abs Lymph 1.00 - 4.00 k/uL 2.94 Schleicher% % 5.9 Abs Schleicher <0.87 k/uL 0.58 Eosin% % 2.7 Abs Eosin <0.46 k/uL 0.26 Baso% % 0.5 Abs Baso <0.11 k/uL 0.05 Immature Gran % % 0.9 IMMATURE GRANS (ABS) <0.10 k/uL 0.09 NRBC /100 WBC 0.0 Absolute nRBC <0.01 k/uL <0.01 DTYPE Auto Color Yellow Yellow Clarity Clear Clear Glucose, Urine Negative Negative Bilirubin, Urine Negative Negative Ketones, Urine Negative Negative Specific [place], Ur 1.005 - 1.030 1.016 Hemoglobin/Blood,Ur Negative Negative pH, Urine <8.5 6.5 Protein, Urine Negative Negative Urobilinogen 0.2-1.0 EU/dL 1.0 EU/dL Nitrites Negative Negative Leukest Negative Negative WBC, Urine 0-5 /HPF 0-5 /HPF RBC, Urine 0-2 /HPF 0-2 /HPF Bacteria Negative /HPF Negative Epithelial Cells /HPF None Seen Hyaline Cast 0 /LPF 1-3 /LPF ! Protein, Total 6.3 - 8.0 g/dL 7.2 Albumin 3.9 - 4.9 g/dL 4.1 Calcium 8.5 - 10.2 mg/dL 9.7 Bilirubin, Total 0.2 - 1.3 mg/dL 0.3 Alkaline Phosphatase 38 - 113 U/L 41 AST 14 - 40 U/L 25 ALT 10 - 54 U/L 21 Glucose 74 - 99 mg/dL 98 BUN 9 - 24 mg/dL 15 Creatinine 0.73 - 1.22 mg/dL 1.50 (H) Sodium 136 - 144 mmol/L 136 Potassium 3.7 - 5.1 mmol/L 4.0 Chloride 98 - 107 mmol/L 98 CO2 22 - 30 mmol/L 26 Anion Gap 8 - 15 mmol/L 12 eGFR >=60 mL/min/1.73m 45 (L) Total Cholesterol, Nonfasting <200 mg/dL 143 Triglycerides, Nonfasting <150 mg/dL 199 (H) HDL Cholesterol, Nonfasting >39 mg/dL 50 LDL Cholesterol Calculated, Nonfasting <100 mg/dL 60 Non HDL Cholesterol, Nonfasting <130 mg/dL 93 VLDL Cholesterol, Nonfasting <30 mg/dL 29 Total Chol/HDL Ratio, Nonfasting <5.10 mg/dL 2.86 LDL/HDL Ratio, Nonfasting <2.54 mg/dL 1.20 Creatinine, Ur Random (UCRR) 20.0 - 300.0 mg/dL 100.8 Albumin, Urine Random mg/L 14.0 Albumin/Creat Ratio <30 mg/g 14 Hemoglobin A1C 4.3 - 5.6 % 6.3 (H) Estimated Average Glucose mg/dL 134 Magnesium 1.7 - 2.3 mg/dL 1.7 Vitamin B12 232 - 1,245 pg/mL 562 Legend: (L) Low (H) High ! Abnormal Assessment and Plan 1. Medicare annual wellness visit, subsequent (Z00.00) - Completed Medicare annual wellness visit. - Discussed general health, exercise, diet, and lifestyle habits. - Patient reports occasional balance issues and phlegm production. - No significant changes in medical or surgical history since last visit. - Scheduled follow-up in 4 months. 2. Advance directive discussed with patient (Z71.89) - Confirmed that advance directives and living will are up to date. 3. Screening for depression (Z13.31) - Patient reports frustration and worry due to current living situation with granddaughter and her . - No desire for counseling services at this time. 4. Encounter for screening examination for other mental health and behavioral disorders (Z13.39) - Discussed feelings of frustration and worry. - No further intervention required at this time. 5. GERD without esophagitis (K21.9) - No current symptoms reported. - Continue current management. 6. Essential hypertension (I10) - Blood pressure stable. - Continue current antihypertensive therapy. 7. Smoker (F17.200) - Patient smokes infrequently, approximately one cigar per day. - Advised to consider smoking cessation. 8. Type 2 diabetes mellitus with stage 3b chronic kidney disease, with long-term current use of insulin (HCC) (E11.22) - as below (#11) 9. Stage 3b chronic kidney disease (HCC) (N18.32) 10. Hypertensive chronic kidney disease with stage 1 through stage 4 chronic kidney disease, or unspecified chronic kidney disease (I12.9) 11. Chronic kidney disease, stage 1 (N18.1) - A1c is 6.3%, slightly improved from December. - Kidney function stable for the past 4-5 years. - No proteinuria detected in recent urine analysis. - Continue current insulin regimen. - Advised patient to monitor blood glucose levels regularly. 12. Dyslipidemia (E78.5) - LDL cholesterol at 60 mg/dL, within target range. - Triglycerides slightly elevated, possibly due to non-fasting state during lab draw. - Continue current lipid-lowering therapy. 13. Hypomagnesemia (E83.42) - Magnesium level is normal at 1.7 mg/dL. - Patient taking magnesium malate daily with good tolerance. - No further intervention required. 14. History of kidney stones (Z87.442) - Recent episode of discomfort similar to previous kidney stone pain, Went to ER. but resolved. - CT was negative - Urine analysis clear, no evidence of stones. - Continue to monitor for any recurrent symptoms. 15. Benign prostatic hyperplasia with lower urinary tract symptoms, symptom details unspecified (N40.1) - No current symptoms reported. - Continue current management. Judi Rice PA-C I spent a total of 45 minutes on the date of the service which included preparing to see the patient, [id number] patient care, completing clinical documentation, obtaining and/or reviewing separately obtained history, performing a medically appropriate examination, counseling and educating the pat ient/family/caregiver, ordering medications, tests, or procedures, and communicating results to thepatient/family/caregiver. Recording using [employer] software for draft documentation of the visit was discussed with the patient/authorized counter sales representative; all questions welcomed and answered. Patient/authorized counter sales representative agreed to proceed [facility] Telephone encounter Note * Telephone Encounter - Taye Horan MD - 07/01/2024 12:38 PM EDT The following approved medication requests have been transmitted electronically. Requested Prescriptions Signed Prescriptions Disp Refills metFORMIN (GLUCOPHAGE) 1,000 mg tablet 180 tablet 1 Sig: Take 1 tablet by mouth two times a day with meals. Authorizing Provider: TAYE HORAN MD [facility]04-14-2025 Miscellaneous Notes* Telephone Encounter - Taye Horan MD - 07/01/2024 12:38 PM EDT The following approved medication requests have been transmitted electronically. Requested Prescriptions Signed Prescriptions Disp Refills metFORMIN (GLUCOPHAGE) 1,000 mg tablet 180 tablet 1 Sig: Take 1 tablet by mouth two times a day with meals. Authorizing Provider: TAYE HORAN MD * Telephone Encounter - Radha Marquez - 07/01/2024 8:49 AM EDT Prescription Refill Information The patient has been identified by name and date of : Yes Caregiver verified no other encounters exist for this prescription request: Yes Caregiver confirmed with patient/requestor that no other refills are due, in the near future, with this provider at this time: Yes The last office visit in the department: 01-15-24 Does the patient have a future office visit with this provider/department: Yes Requested Prescriptions Pending Prescriptions Disp Refills metFORMIN (GLUCOPHAGE) 1,000 mg tablet 180 tablet 1 Sig: Take 1 tablet by mouth two times a day with meals. Radha Ritter July 01, 2024 8:50 AM documented in this encounter[facility]04-[facility] Telephone encounter Note * Telephone Encounter - Radha Marquez - 07/01/2024 8:49 AM EDT Prescription Refill Information The patient has been identified by name and date of : Yes Caregiver verified no other encounters exist for this prescription request: Yes Caregiver confirmed with patient/requestor that no other refills are due, in the near future, with this provider at this time: Yes The last office visit in the department: 01-15-24 Does the patient have a future office visit with this provider/department: Yes Requested Prescriptions Pending Prescriptions Disp Refills metFORMIN (GLUCOPHAGE) 1,000 mg tablet 180 tablet 1 Sig: Take 1 tablet by mouth two times a day with meals. Radha Ritter July 01, 2024 8:50 AM [facility] Work Phone: [phone] 699-680003-30-2025 Radiology Diagnostic study note [facility] Imaging Services [address], [place] [address] Abdomen/Pelvis without Cont MR#: [id number] Acct: [id number] Name: JUAN M RODRIGUEZ Rep #: [id number] 1 : 1935 M 88 From: Alina Cheung MD PCP: Dr. Taye Horan MD Status: REG ER Study:Abdomen/Pelvis without Cont Date of Exa m: 06/16/24 Exam# [id number] Ordering Dr: Lin Howard PROCEDURE: ABDOMEN/PELVIS WITHOUT CONT 06/16/2024 REASON FOR EXAM: LLQ PAIN, HX KIDNEY STONES TECHNIQUE: Abdomen and pelvis CT without intravenous contrast. Noncontrast technique limits evaluation of the abdominal and pelvic viscera. Contiguous axial scans of 2.5 mm slice thicknesses. Sagittal and coronal reconstruction images wereobtained. One or more dose reduction techniques were used (e.g., automated exposure control, adjustment of mAand/or kv according to patient size, use of iterative reconstruction technique). ORAL CONTRAST TYPE: None. COMPARISON: CT abdomen and pelvis dated 10/07/2023. FINDINGS: Lung bases: Mild hypoventilatory changes and/or parenchymal scarring. Mild bronchiectatic changes in the lower lobes. Severe coronary artery calcifications. Elevation of the right hemidiaphragm. Liver: Unremarkable. Gallbladder: Surgically absent. Spleen: Unremarkable. Pancreas: Mild atrophy. Adrenals: No masses or abnormal thickening. Kidneys: Multiple subcentimeter nonobstructing calculi in the left kidney. Bilateral renal cysts, largest on the left measuring 1.1 cm and 1.9 cm on the right. Bladder: Unremarkable. Reproductive Organs: [id number] prostatomegaly. Bowel: Severe diverticulosis, more prevalent in the left hemicolon without signsof diverticulitis. Appendix: Unremarkable. Lymph nodes: No suspicious lymphadenopathy. Vasculature: Diffuse atherosclerotic calcific disease of the aorta and iliac arteries. Peritoneum / Retroperitoneum: No free air. No free fluid. Anterior abdominal wall: Unremarkable. Bones: Multilevel spondylosis. CT/Abdomen/Pelvis without Cont IMPRESSION: 1. Left nonobstructing nephrolithiasis. 2. Bilateral renal cysts. 3. Status post cholecystectomy. 4. Mild pancreatic atrophy. 5. Severe colon diverticulosis without signs of diverticulitis. 6. Mild bronchiectatic changes in the bilateral lower lobes. 7. Severe coronary artery calcifications. 8. Elevation of the right hemidiaphragm. 9. Other nonacute findings detailed above. Reading Location: [facility] CC: Dr. Taye Horan MD; CORTNEY [place] ~ Material Assembler: Signed [facility]03-24-2025 Telephone encounter Note* Telephone Encounter - Taye Horan MD - 06/10/2024 12:45 PM EDT The following approved medication requests have been transmitted electronically. Requested Prescriptions Signed Prescriptions Disp Refills insulin aspart U-100 (NOVOLOG FLEXPEN U-100 INSULIN) 100 unit/mL (3 mL) 5 Each 1 Sig: Inject 6 Units subcutaneously three times a day before meals. Authorizing Provider: TAYE HORAN Lancets (MICROLET LANCET) 200 Each 2 Si Each four times daily. Dx: Type 2 DM - Controlled E11.9 Insulin: Yes Authorizing Provider: TAYE HORAN MD [facility]03-24-2025 Miscellaneous Notes* Telephone Encounter - Taye Horan MD - 06/10/2024 12:45 PM EDT The following approved medication requests have been transmitted electronically. Requested Prescriptions Signed Prescriptions Disp Refills insulin aspart U-100 (NOVOLOG FLEXPEN U-100 INSULIN) 100 unit/mL (3 mL) 5 Each 1 Sig: Inject 6 Units subcutaneously three times a day before meals. Authorizing Provider: TAYE HORAN Lancets (MICROLET LANCET) 200 Each 2 Si Each four times daily. Dx: Type 2 DM - Controlled E11.9 Insulin: Yes Authorizing Provider: TAYE HORAN MD * Telephone Encounter - Hyun Dave RN - 06/10/2024 12:37 PM EDT The patient has been identified by name and date of : Yes Caregiver verified no other encounters exist for this prescription request: Yes Caregiver confirmed with patient/requestor that no other refills are due, in the near future, with this provider at this time: Yes The last office visit in the department: 01/15/2024 Does the patient have a future office visit with this provider/department: 07/16/2024 Requested Prescriptions Pending Prescriptions Disp Refills insulin aspart U-100 (NOVOLOG FLEXPEN U-100 INSULIN) 100 unit/mL (3 mL) 5 Each 1 Sig: Inject 6 Units subcutaneously three times a day before meals. Lancets (MICROLET LANCET) 200 Each 2 Si Each four times daily. Dx: Type 2 DM - Controlled E11.9 Insulin: Yes Hyun Dave RN June 10, 2024 12:37 PM documented [facility]03-[facility] Telephone encounter Note * Telephone Encounter - Hyun Dave RN - 06/10/2024 12:37 PM EDT The patient has been identified by name and date of : Yes Caregiver verified no other encounters exist for this prescription request: Yes Caregiver confirmed with patient/requestor that no other refills are due, in the near future, with this provider at this time: Yes The last office visit in the department: 01/15/2024 Does the patient have a future office visit with this provider/department: 07/16/2024 Requested Prescriptions Pending Prescriptions Disp Refills insulin aspart U-100 (NOVOLOG FLEXPEN U-100 INSULIN) 100 unit/mL (3 mL) 5 Each 1 Sig: Inject 6 Units subcutaneously three times a day before meals. Lancets (MICROLET LANCET) 200 Each 2 Si Each four times daily. Dx: Type 2 DM - Controlled E11.9 Insulin: Yes Hyun Dave RN June 10, 2024 12:37 PM [facility]03-21-2025 Telephone encounter Note* Telephone Encounter - uLna Garcia LPN - 06/07/2024 9:07 AM EDT The patient has been identified by name and date of : Yes Caregiver verified no other encounters exist for this prescription request: Yes Caregiver confirmed with patient/requestor that no other refills are due, in the near future, with this provider at this time: Yes The last office visit in the department: 01/15/2024 Does the patient have a future office visit with this provider/department: Yes 07/16/2024 Requested Prescriptions Pending Prescriptions Disp Refills lovastatin (MEVACOR) 20 mg tablet 90 tablet 1 Sig: Take 1 tablet by mouth daily at bedtime. Luna Garcia LPN June 07, 2024 9:08 AM [facility]03-21-2025 Miscellaneous Notes* Telephone Encounter - Luna Garcia LPN - 06/07/2024 9:07 AM EDT The patient has been identified by name and date of : Yes Caregiver verified no other encounters exist for this prescription request: Yes Caregiver confirmed with patient/requestor that no other refills are due, in the near future, with this provider at this time: Yes The last office visit in the department: 01/15/2024 Does the patient have a future office visit with this provider/department: Yes 07/16/2024 Requested Prescriptions Pending Prescriptions Disp Refills lovastatin (MEVACOR) 20 mg tablet 90 tablet 1 Sig: Take 1 tablet by mouth daily at bedtime. Luna Garcia LPN June 07, 2024 9:08 AM documented in this encounter[facility]01-[facility]-2025 Telephone encounter Note * Telephone Encounter - Luna Garcia LPN - 04/11/2024 11:10 AM EST The patient has been identified by name and date of : Yes Caregiver verified no other encounters exist for this prescription request: Yes Caregiver confirmed with patient/requestor that no other refills are due, in the near future, with this provider at this time: Yes The last office visit in the department: 01/15/2024 Does the patient have a future office visit with this provider/department: Yes 07/16/2024 Requested Prescriptions Pending Prescriptions Disp Refills blood sugar diagnostic (CONTOUR TEST STRIPS) test strip 200 Strip 3 Sig: Test blood sugar(s) 4 times daily. Dx: Type 2 DM - Controlled E11.9 Insulin: Yes Luna Garcia LPN April 11, 2024 11:11 AM [facility]01-23-2025 Miscellaneous Notes* Telephone Encounter - Luna Garcia LPN - 04/11/2024 11:10 AM EST The patient has been identified by name and date of : Yes Caregiver verified no other encounters exist for this prescription request: Yes Caregiver confirmed with patient/requestor that no other refills are due, in the near future, with this provider at this time: Yes The last office visit in the department: 01/15/2024 Does the patient have a future office visit with this provider/department: Yes 07/16/2024 Requested Prescriptions Pending Prescriptions Disp Refills blood sugar diagnostic (CONTOUR TEST STRIPS) test strip 200 Strip 3 Sig: Test blood sugar(s) 4 times daily. Dx: Type 2 DM - Controlled E11.9 Insulin: Yes Luna Garcia LPN April 11, 2024 11:11 AM documented in [facility]01-[facility]-2025 Telephone encounter Note * Telephone Encounter - Evangelista Fisher LPN - 04/02/2024 9:17 AM EST Pt notified rx has been sent to pharmacy. Evangelista Fisher LPN [facility]01-14-2025 Miscellaneous Notes* Telephone Encounter - Evangelista Fisher LPN - 04/02/2024 9:17 AM EST Pt notified rx has been sent to pharmacy. Evangelista Fisher LPN * Telephone Encounter - Taye Horan MD - 04/01/2024 3:53 PM EST Let patient know new script sent to [facility] The following approved medication requests have been transmitted electronically. Requested Prescriptions Signed Prescriptions Disp Refills insulin glargine-yfgn (SEMGLEE) 100 unit/mL (3 mL) insulin pen 5 Each 5 Sig: Inject 25 Units subcutaneously daily at bedtime. Authorizing Provider: TAYE HORAN MD * Telephone Encounter - Sharif Payan MA - 04/01/2024 10:54 AM EST Patient stopped by office and indicated that he received notification from his insurance they will no longer be covering the Basaglar insulin. Alternative medication covered are: Insulin Glargine-YFGN pen. Per paperwork. Sharif Payan MA documented in [facility]01-[facility]-2025 Telephone encounter Note * Telephone Encounter - Taye Horan MD - 04/01/2024 3:53 PM EST Let patient know new script sent to [facility] The following approved medication requests have been transmitted electronically. Requested Prescriptions Signed Prescriptions Disp Refills insulin glargine-yfgn (SEMGLEE) 100 unit/mL (3 mL) insulin pen 5 Each 5 Sig: Inject 25 Units subcutaneously daily at bedtime. Authorizing Provider: TAYE HORAN MD [facility]01-13-2025 Telephone encounter Note* Telephone Encounter - Sharif Payan MA - 04/01/2024 10:54 AM EST Patient stopped by office and indicated that he received notification from his insurance they will no longer be covering the Basaglar insulin. Alternative medication covered are: Insulin Glargine-YFGN pen. Per paperwork. Sharif Payan MA [facility]12-12-2024 NoteHNO ID: [id number] Author: ?, ?, ? Service: ? Author Type: ? Type: Progress Notes Filed: 02/29/2024 13:06 Note Text: Called pt, Unable to LVM. No other providers are taking on patients in [facility]. [facility]12-10-2024 NoteHNO ID: [id number] Author: TONIA ESTRELLA MA Service: ? Author Type: Machine Inspector Type: Progress Notes Filed: 02/27/2024 16:48 Note Text: POPULATION HEALTH NAVIGATION OUTREACH Action/February 27, 2024 4:42 PM [facility] scheduling team, Please reach out to patient to see if you may assist him. He would like to stay at [facility], however he would like to switch to a different Primary Care provider. He is requesting an MD/DO only, no HOTEL ROOM ATTENDANT/PA. He is asking this for both himself and his Mckenzie. Attempted to pull something up for him. the only provider I could find was the HOTEL ROOM ATTENDANT. Due to patients age he would like to stay close to home. [facility] was offered, he would like to see first if you would be able to accommodate him at all. Thank you very much for your effort and time. Reason for Outreach Community Monitoring/Network Navigator Pools AND Phone Line: CDM Patient Contacted: Spoke to patient/parent/or legal guardian Patient identified by name and : Yes Community Monitoring/Network Navigator Pools AND Phone Line actions taken: Sent message to PCP scheduling team Navigation Signature: Tonia Estrella MA February 27, 2024 4:42 [facility]12-10-2024 History of Present illness Narrative* Tonia Estrella MA - 02/27/2024 4:42 PM EST POPULATION HEALTH NAVIGATION OUTREACH Action/February 27, 2024 4:42 PM [facility] scheduling team, Please reach out to patient to see if you may assist him. He would like to stay at [facility], howeverhe would like to switch to a different Primary Care provider. He is requesting an MD/DO only, no HOTEL ROOM ATTENDANT/PA. He is asking this for both himself and his Mckenzie. Attempted to pull something up for him. the only provider I could find was the HOTEL ROOM ATTENDANT. Due to patients age he would like to stay close to home. [facility] was offered, he would like to see first if you would be able to accommodate him at all. Thank you very much for your effort and time. Reason for Outreach Community Monitoring/Network Navigator Pools & Phone Line: CDM Patient Contacted: Spoke to patient/parent/or legal guardian Patient identified by name and : Yes Community Monitoring/Network Navigator Pools & Phone Line actions taken: Sent message to PCP scheduling team Navigation Signature: Tonia Estrella MA February 27, 2024 4:42 PM * Nancy Vanessa RN - 02/27/2024 4:16 PM EST CDM Telephonic Outreach Provider Action/FYI Please call patient and assist with establishing with a new PCP. Patient aware that he will be receiving a call, best to call on home number. Contacted for: Routine Telephonic Outreach Contact made with patient: Yes Patient identified by name and date of . Discussed care with patient Are you experiencing any new or worsening symptoms you need to talk about today? No Disease Specific Do you check your blood pressure at home? No Do you have new or worsening shortness of breath with activity? No Do you feel like you are dehydrated for any reason, including not being able to eat or drink normally, or having less urine/much darker urine than normal for you? No Do you check your daily weight at home? No Based on sales solutions associate, the following disposition is advised: No symptoms or symptoms present, not severe. Routed to: Navigation, establish with a new PCP. [place] Education Provided this Outreach: No Nancy Vanessa RN February 27, 2024 4:17 PM * Nancy Vanessa RN - 02/27/2024 4:07 PM EST Patient has been identified by name and date of : Yes, Spoke to patient, patient is feeling much better, does not need to be seen. * Nancy Vanessa RN - 02/27/2024 1:18 PM EST [facility] Telephonic Outreach Provider Lili/KATIE Spoke to spouse who states that patient was seen in the ED, continues with cough. Was not given anymedication at visit. Spouse asks for a return call at 4 pm today to speak with spouse. Contacted for: Routine Telephonic Outreach Contact made with patient: Yes Patient identified by name and date of . Discussed care with spouse Are you experiencing any new or worsening symptoms you need to talk about today? No Disease Specific Do you check your blood pressure at home? No Do you have new or worsening shortness of breath with activity? No Do you feel like you are dehydrated for any reason, including not being able to eat or drink normally, or having less urine/much darker urine than normal for you? No Do you check your daily weight at home? No Based on sales solutions associate, the following disposition is advised: No symptoms or symptoms present, not severe. Routed to: No Action Needed [place] Education Provided this Outreach: No Nancy Vanessa RN February 27, 2024 1:25 PM [facility] NoteHNO ID: [id number] Author: NANCY VANESSA RN Service: ? Author Type: Registered Nurse Type: Progress Notes Filed: 02/27/2024 16:19 Note Text: [facility] Telephonic Outreach Provider Freeman Please call patient and assist with establishing with a new PCP. Patient aware that he will be receiving a call, best to call on home number. Contacted for: Routine Telephonic Outreach Contact made with patient: Yes Patient identified by name and date of . Discussed care with patient Are you experiencing any new or worsening symptoms you need to talk about today? No Disease Specific Do you check your blood pressure at home? No Do you have new or worsening shortness of breath with activity? No Do you feel like you are dehydrated for any reason, including not being able to eat or drink normally, or having less urine/much darker urine than normal for you? No Do you check your daily weight at home? No Based on sales solutions associate, the following disposition is advised: No symptoms or symptoms present, not severe. Routed to: Navigation, establish with a new PCP. [place] Education Provided this Outreach: Patti Vanessa RN February 27, 2024 4:17 [facility]12-10-2024 NoteHNO ID: [id number] Author: NANCY VANESSA RN Service: ? Author Type: Registered Nurse Type: Progress Notes Filed: 02/27/2024 16:09 Note Text: Patient has been identified by name and date of : Yes, Spoke to patient, patient is feeling much better, does not need to be seen. [facility]12-10-2024 NoteHNO ID: [id number] Author: NANCY VANESSA RN Service: ? Author Type: Registered Nurse Type: Progress Notes Filed: 02/27/2024 16:09 Note Text: [facility] Telephonic Outreach Provider Action/FYI Spoke to spouse who states that patient was seen in the ED, continues with cough. Was not given any medication at visit. Spouse asks for a return call at 4 pm today to speak with spouse. Contacted for: Routine Telephonic Outreach Contact made with patient: Yes Patient identified by name and date of . Discussed care with spouse Are you experiencing any new or worsening symptoms you need to talk about today? No Disease Specific Do you check your blood pressure at home? No Do you have new or worsening shortness of breath with activity? No Do you feel like you are dehydrated for any reason, including not being able to eat or drink normally, or having less urine/much darker urine than normal for you? No Do you check your daily weight at home? No Based on sales solutions associate, the following disposition is advised: No symptoms or symptoms present, not severe. Routed to: No Action Needed [place] Education Provided this Outreach: Patti Vanessa RN February 27, 2024 1:25 [place] [address]-10-2024 NotePatient Outreach ([facility]) JUAN M RODRIGUEZ ([id number]) 1935 M [place] Date Time Provider Department 02/27/24 NANCY VANESSA [facility] During your visit today, we recorded the following information about you: Nancy Vanessa RN 02/27/2024 4:09 PM Signed [facility] Telephonic Outreach Provider Lili/KATIE Spoke to spouse who states that patient was seen in the ED, continues with cough. Was not given any medication at visit. Spouse asks for a return call at 4 pm today to speak with spouse. Contacted for: Routine Telephonic Outreach Contact made with patient: Yes Patient identified by name and date of . Discussed care with spouse Are you experiencing any new or worsening symptoms you need to talk about today? No Disease Specific Do you check your blood pressure at home? No Do you have new or worsening shortness of breath with activity? No Do you feel like you are dehydrated for any reason, including not being able to eat or drink normally, or having less urine/much darker urine than normal for you? No Do you check your daily weight at home? No Based on sales solutions associate, the following disposition is advised: No symptoms or symptoms present, not severe. Routed to: No Action Needed [place] Education Provided this Outreach: No Nancy Vanessa RN February 27, 2024 1:25 PM Nancy Vanessa RN 02/27/2024 4:09 PM Signed Patient has been identified by name and date of : Yes, Spoke to patient, patient is feeling much better, does not need to be seen. Nancy Vanessa RN 02/27/2024 4:19 PM Signed [facility] Telephonic Outreach Provider Freeman Please call patient and assist with establishing with a new PCP. Patient aware that he will be receiving a call, best to call on home number. Contacted for: Routine Telephonic Outreach Contact made with patient: Yes Patient identified by name and date of . Discussed care with patient Are you experiencing any new or worsening symptoms you need to talk about today? No Disease Specific Do you check your blood pressure at home? No Do you have new or worsening shortness of breath with activity? No Do you feel like you are dehydrated for any reason, including not being able to eat or drink normally, or having less urine/much darker urine than normal for you? No Do you check your daily weight at home? No Based on sales solutions associate, the following disposition is advised: No symptoms or symptoms present, not severe. Routed to: Navigation, establish with a new PCP. [place] Education Provided this Outreach: No Nancy Vanessa RN February 27, 2024 4:17 PM Tonia Estrella MA 02/27/2024 4:48 PM Signed [facility] NAVIGATION OUTREACH Action/February 27, 2024 4:42 PM [facility] scheduling team, Please reach out to patient to see if you may assist him. He would like to stay at [facility], however he would like to switch to a different Primary Care provider. He is requesting an MD/DO only, no HOTEL ROOM ATTENDANT/PA. He is asking this for both himself and his Mckenzie. Attempted to pull something up for him. the only provider I could find was the HOTEL ROOM ATTENDANT. Due to patients age he would like to stay close to home. [facility] was offered, he would like to see first if you would be able to accommodate him at all. Thank you very much for your effort and time. Reason for Outreach Community Monitoring/Network Navigator [employer] AND Phone Line: CDM Patient Contacted: Spoke to patient/parent/or legal guardian Patient identified by name and : Yes Community Monitoring/Network Navigator [employer] Phone Line actions taken: Sent message to PCP scheduling team Navigation Signature: Tonia Estrella MA February 27, 2024 4:42 PM Joelle Levine 02/29/2024 1:06 PM Signed Called pt, Unable to LVM. No other providers are taking on patients in [facility]. Allergies As of Date: 02/27/2024 Noted Allergy Reaction DILAUDID (HYDROMORPHONE (BULK)) 09/03/2018 1 - Mental Status Change LISINOPRIL 12/24/2014 14 - Other: See Comments Comments: angioedema MAGNESIUM OXIDE 11/10/2021 14 - Other: See Comments Comments: Loose stools, leg and foot pain PENICILLINS 12/16/2002 16 - Unknown Date Reviewed: 01/15/2024 Reviewed by: Evangelista Fisher LPN - Fully Assessed Reason for Visit: Community Monitoring Outreach [Other] Prescriptions as of 02/29/2024 - omeprazole (PRILOSEC) 40 mg capsule Take 1 capsule by mouth daily before breakfast. 1/2 hr before meal. - glimepiride (AMARYL) 1 mg tablet Take 1 tablet by mouth two times a day. - insulin glargine (BASAGLAR KWIKPEN U-100 INSULIN) 100 unit/mL (3 mL) Inject 25 Units subcutaneously daily at bedtime. - albuterol HFA (VENTOLIN HFA) 90 mcg/actuation inhaler Inhale 2 Puffs as instructed every 4 hours as needed for wheezing/shortness of breath. - fenofibrate (LOFIBRA) 200 mg capsule Take 1 capsule by mouth daily before breakfast. - (more content not included)...[facility]12-06-[facility] Telephone encounter Note* Telephone Encounter - Ju Sawyer LPN - 02/23/2024 1:24 PM EST Prescription Refill Information The patient has been identified by name and date of : Yes Caregiver verified no other encounters exist for this prescription request: Yes Caregiver confirmed with patient/requestor that no other refills are due, in the near future, with this provider at this time: Yes The last office visit in the department: 01/15/2024 Does the patient have a future office visit with this provider/department: Yes Requested Prescriptions Pending Prescriptions Disp Refills omeprazole (PRILOSEC) 40 mg capsule 90 capsule 1 Sig: Take 1 capsule by mouth daily before breakfast. 1/2 hr before meal. Ju Sawyer LPN February 23, 2024 1:25 PM [facility]12-06-2024 Miscellaneous Notes* Telephone Encounter - Ju Sawyer LPN - 02/23/2024 1:24 PM EST Prescription Refill Information The patient has been identified by name and date of : Yes Caregiver verified no other encounters exist for this prescription request: Yes Caregiver confirmed with patient/requestor that no other refills are due, in the near future, with this provider at this time: Yes The last office visit in the department: 01/15/2024 Does the patient have a future office visit with this provider/department: Yes Requested Prescriptions Pending Prescriptions Disp Refills omeprazole (PRILOSEC) 40 mg capsule 90 capsule 1 Sig: Take 1 capsule by mouth daily before breakfast. 1/2 hr before meal. Ju Sawyer LPN February 23, 2024 1:25 PM documented in [facility]12-[facility]-2024 NoteHNO ID: [id number] Author: EVANGELISTA FISHER LPN Service: ? Author Type: LICENSED NURSE Type: Progress Notes Filed: 02/19/2024 11:39 Note Text: Scan on 02/18/2024 7:31 AM by ProviderEssie PA-C: [facility] History of Present illness Narrative* Evangelista Fisher LPN - 02/19/2024 11:39 AM EST Scan on 02/18/2024 7:31 AM by Essie Del Rosario PA-C: Consultation - Emergency Medicine documented in [facility]11-[facility]-2024 Miscellaneous Notes* Telephone Encounter - Ellen Francis RN - 02/09/2024 8:57 AM EST Prescription Refill Information The patient has been identified by name and date of : Yes Caregiver verified no other encounters exist for this prescription request: Yes Caregiver confirmed with patient/requestor that no other refills are due, in the near future, with this provider at this time: Yes The last office visit in the department: 01/15/24 Does the patient have a future office visit with this provider/department: Yes (07/16/24) medication last filled on 07/12/23 with 180 and 1 refill Requested Prescriptions Pending Prescriptions Disp Refills glimepiride (AMARYL) 1 mg tablet 180 tablet 1 Sig: Take 1 tablet by mouth two times a day. Ellen Francis RN February 09, 2024 8:57 AM documented in this [facility]11-[facility]-2024 Telephone encounter Note * Telephone Encounter - Ellen Francis RN - 02/09/2024 8:57 AM EST Prescription Refill Information The patient has been identified by name and date of : Yes Caregiver verified no other encounters exist for this prescription request: Yes Caregiver confirmed with patient/requestor that no other refills are due, in the near future, with this provider at this time: Yes The last office visit in the department: 01/15/24 Does the patient have a future office visit with this provider/department: Yes (07/16/24) medication last filled on 07/12/23 with 180 and 1 refill Requested Prescriptions Pending Prescriptions Disp Refills glimepiride (AMARYL) 1 mg tablet 180 tablet 1 Sig: Take 1 tablet by mouth two times a day. Ellen Francis RN February 09, 2024 8:57 AM [facility]11-12-2024 Telephone encounter Note* Telephone Encounter - Judi Rice PA-C - 01/30/2024 9:40 AM EST The following approved medication requests have been transmitted electronically. Requested Prescriptions Signed Prescriptions Disp Refills insulin glargine (BASAGLAR KWIKPEN U-100 INSULIN) 100 unit/mL (3 mL) 5 Each 5 Sig: Inject 25 Units subcutaneously daily at bedtime. Authorizing Provider: JUDI RICE albuterol HFA (VENTOLIN HFA) 90 mcg/actuation inhaler 1 Each 3 Sig: Inhale 2 Puffs as instructed every 4 hours as needed for wheezing/shortness of breath. Authorizing Provider: JUDI RICE PA-C [facility]11-12-2024 Miscellaneous Notes* Telephone Encounter - Judi Rice PA-C - 01/30/2024 9:40 AM EST The following approved medication requests have been transmitted electronically. Requested Prescriptions Signed Prescriptions Disp Refills insulin glargine (BASAGLAR KWIKPEN U-100 INSULIN) 100 unit/mL (3 mL) 5 Each 5 Sig: Inject 25 Units subcutaneously daily at bedtime. Authorizing Provider: JUDI RICE albuterol HFA (VENTOLIN HFA) 90 mcg/actuation inhaler 1 Each 3 Sig: Inhale 2 Puffs as instructed every 4 hours as needed for wheezing/shortness of breath. Authorizing Provider: JUDI RICE PA-C * Telephone Encounter - Martha Naranjo RN - 01/30/2024 8:53 AM EST Patient calls requesting refills. Patient states at last appointment he had discussed how he had received albuterol inhaler in [facility]. Patient states that the inhaler has really helped him and is asking if provider can send in new prescription for this? The patient has been identified by name and date of : Yes Caregiver verified no other encounters exist for this prescription request: Yes Caregiver confirmed with patient/requestor that no other refills are due, in the near future, with this provider at this time: Yes The last office visit in the department: 01/15/2024 Does the patient have a future office visit with this provider/department: Yes 07/16/2024 Requested Prescriptions Pending Prescriptions Disp Refills insulin glargine (BASAGLAR KWIKPEN U-100 INSULIN) 100 unit/mL (3 mL) 5 Each 5 Sig: Inject 25 Units subcutaneously daily at bedtime. albuterol HFA (VENTOLIN HFA) 90 mcg/actuation inhaler 1 Each 3 Sig: Inhale 2 Puffs as instructed every 4 hours as needed for wheezing/shortness of breath. Martha Naranjo RN January 30, 2024 8:57 AM documented in this encounter[facility]11-[facility] Telephone encounter Note * Telephone Encounter - Martha Naranjo RN - 01/30/2024 8:53 AM EST Patient calls requesting refills. Patient states at last appointment he had discussed how he had received albuterol inhaler in [facility]. Patient states that the inhaler has really helped him and is asking if provider can send in new prescription for this? The patient has been identified by name and date of : Yes Caregiver verified no other encounters exist for this prescription request: Yes Caregiver confirmed with patient/requestor that no other refills are due, in the near future, with this provider at this time: Yes The last office visit in the department: 01/15/2024 Does the patient have a future office visit with this provider/department: Yes 07/16/2024 Requested Prescriptions Pending Prescriptions Disp Refills insulin glargine (BASAGLAR KWIKPEN U-100 INSULIN) 100 unit/mL (3 mL) 5 Each 5 Sig: Inject 25 Units subcutaneously daily at bedtime. albuterol HFA (VENTOLIN HFA) 90 mcg/actuation inhaler 1 Each 3 Sig: Inhale 2 Puffs as instructed every 4 hours as needed for wheezing/shortness of breath. Martha Naranjo RN January 30, 2024 8:57 AM [facility]11-08-2024 NoteHNO ID: [id number] Author: MARCELINA GARCIA RN Service: ? Author Type: Registered Nurse Type: Progress Notes Filed: 01/26/2024 15:40 Note Text: [facility] Telephonic Outreach Provider Action/FYI Patient states: -doing better now -had covid last month/felt bad for 2 weeks -covid recovered now -caregiver for his /takes her to Reviewed future appts and lab orders w/ patient Contacted for: Routine Telephonic Outreach Contact made with patient: Yes Patient identified by name and date of . Discussed care with patient Are you experiencing any new or worsening symptoms you need to talk about today? No Disease Specific Do you check your blood pressure at home? No Do you have new or worsening shortness of breath with activity? No Do you feel like you are dehydrated for any reason, including not being able to eat or drink normally, or having less urine/much darker urine than normal for you? No Do you check your daily weight at home? No Based on sales solutions associate, the following disposition is advised: No symptoms or symptoms present, not severe. Routed to: No Action Needed [place] Education Provided this Outreach: No Marcelina Garcia RN January 26, 2024 3:40 [facility]11-08-2024 History of Present illness Narrative* Marcelina Garcia RN - 01/26/2024 3:37 PM EST [facility] Telephonic Outreach Provider Action/FYI Patient states: -doing better now -had covid last month/felt bad for 2 weeks -covid recovered now -caregiver for his /takes her to Reviewed future appts and lab orders w/ patient Contacted for: Routine Telephonic Outreach Contact made with patient: Yes Patient identified by name and date of . Discussed care with patient Are you experiencing any new or worsening symptoms you need to talk about today? No Disease Specific Do you check your blood pressure at home? No Do you have new or worsening shortness of breath with activity? No Do you feel like you are dehydrated for any reason, including not being able to eat or drink normally, or having less urine/much darker urine than normal for you? No Do you check your daily weight at home? No Based on sales solutions associate, the following disposition is advised: No symptoms or symptoms present, not severe. Routed to: No Action Needed [place] Education Provided this Outreach: No Marcelina Garcia RN January 26, 2024 3:40 PM documented in [facility] NotePatient Outreach ([facility]) JUAN M RODRIGUEZ ([id number]) 1935 M [facility] Date Time Provider Department 01/26/24 MARCELINA GARCIA During your visit today, we recorded the following information about you: Marcelina Garcia RN 01/26/2024 3:40 PM Signed [facility] Telephonic Outreach Provider Action/FYI Patient states: -doing better now -had covid last month/felt bad for 2 weeks -covid recovered now -caregiver for his /takes her to Reviewed future appts and lab orders w/ patient Contacted for: Routine Telephonic Outreach Contact made with patient: Yes Patient identified by name and date of . Discussed care with patient Are you experiencing any new or worsening symptoms you need to talk about today? No Disease Specific Do you check your blood pressure at home? No Do you have new or worsening shortness of breath with activity? No Do you feel like you are dehydrated for any reason, including not being able to eat or drink normally, or having less urine/much darker urine than normal for you? No Do you check your daily weight at home? No Based on sales solutions associate, the following disposition is advised: No symptoms or symptoms present, not severe. Routed to: No Action Needed [place] Education Provided this Outreach: No Marcelina Garcia RN January 26, 2024 3:40 PM Allergies As of Date: 01/26/2024 Noted Allergy Reaction DILAUDID (HYDROMORPHONE (BULK)) 09/03/2018 1 - Mental Status Change LISINOPRIL 12/24/2014 14 - Other: See Comments Comments: angioedema MAGNESIUM OXIDE 11/10/2021 14 - Other: See Comments Comments: Loose stools, leg and foot pain PENICILLINS 12/16/2002 16 - Unknown Date Reviewed: 01/15/2024 Reviewed by: Evangelista Fisher LPN - Fully Assessed Reason for Visit: Community Monitoring Outreach [Other] Cmt: [facility] Telephonic Outreach Prescriptions as of 03/22/2024 - omeprazole (PRILOSEC) 40 mg capsule Take 1 capsule by mouth daily before breakfast. 1/2 hr before meal. - glimepiride (AMARYL) 1 mg tablet Take 1 tablet by mouth two times a day. - insulin glargine (BASAGLAR KWIKPEN U-100 INSULIN) 100 unit/mL (3 mL) Inject 25 Units subcutaneously daily at bedtime. - albuterol HFA (VENTOLIN HFA) 90 mcg/actuation inhaler Inhale 2 Puffs as instructed every 4 hours as needed for wheezing/shortness of breath. - fenofibrate (LOFIBRA) 200 mg capsule Take 1 capsule by mouth daily before breakfast. - amLODIPine (NORVASC) 5 mg tablet Take 1 tablet by mouth once daily. one tab daily - Insulin [place], Disposable, (SURE COMFORT PEN NEEDLE) 32 gauge x 5/32 1 Each four times daily. - insulin aspart U-100 (NOVOLOG FLEXPEN U-100 INSULIN) 100 unit/mL (3 mL) Inject 6 Units subcutaneously three times a day before meals. - lovastatin (MEVACOR) 20 mg tablet Take 1 tablet by mouth daily at bedtime. - Lancets (MICROLET LANCET) 1 Each four times daily. Dx: Type 2 DM - Controlled E11.9 Insulin: Yes - metFORMIN (GLUCOPHAGE) 1,000 mg tablet Take 1 tablet by mouth two times a day with meals. - blood sugar diagnostic (CONTOUR TEST STRIPS) test strip Test blood sugar(s) 4 times daily. Dx: Type 2 DM - Controlled E11.9 Insulin: Yes - Magnesium Glycinate 100 mg tab Take 1 tablet by mouth every other day. - Cholecalciferol, Vitamin D3, 50 mcg (2,000 unit) cap Take 1 capsule by mouth. - ferrous sulfate 325 mg (65 mg iron) tablet Take 325 mg by mouth daily with breakfast. - aspirin, enteric coated (ASPIRIN, ENTERIC COATED) 81 mg EC tablet Take 1 tablet by mouth once daily. Problem List As Of Date 01/26/2024 Noted Resolved Type 2 diabetes mellitus with stage 3b chronic *09/03/2018 Dyslipidemia [E78.5] 09/03/2018 GERD without esophagitis [K21.9] 09/03/2018 Hypertensive chronic kidney disease with stage *09/03/2018 History of kidney stones [Z87.442] 09/03/2018 History of colonic polyps [Z86.0100] 09/03/2018 Smoker [F17.200] 09/03/2018 Benign prostatic hyperplasia with lower urinary*09/03/2018 Medicare annual wellness visit, subsequent [Z00*09/03/2018 Hypomagnesemia [E83.42] 01/23/2019 Diabetic eye exam (HCC) [Z01.00, E11.9] 05/07/2019 Stage 3b chronic kidney disease (HCC) [N18.32] 10/01/2019 Anemia of chronic disease [D63.8] 11/03/2019 Essential hypertension [I10] 09/03/2018 Medication management [Z79.899] 08/28/2020 History of COVID-19 [Z86.16] 03/23/2021 Living will in place [Z78.9] 07/07/2021 Advance directive discussed with patient [Z71.8*07/07/2021 Diverticulosis [K57.90] 07/08/2022 Neck pain [M54.2] 07/08/2022 Diarrhea [R19.7] 07/08/2022 Nausea [R11.0] 07/08/2022 Encounter Status:Closed by MARCELINA GARCIA on 01/26/24[facility] 01-17-2024 Telephone encounter Note* Telephone Encounter - Martha Naranjo RN - 01/17/2024 11:25 AM EDT Patient notified of results and provider's instructions. Patient verbalizes understanding. Martha Naranjo RN [facility]10-30-2024 Miscellaneous Notes* Telephone Encounter - Martha Naranjo RN - 01/17/2024 11:25 AM EDT Patient notified of results and provider's instructions. Patient verbalizes understanding. Martha Naranjo RN * Telephone Encounter - Madison Woodard RN - 01/17/2024 10:26 AM EDT Called and left a voicemail for the Patient to call back and ask for a nurse to receive the providers message. Madison Woodard RN * Telephone Encounter - Judi Rice PA-C - 01/17/2024 10:15 AM EDT Xray negative. Continue the albuterol and follow up if not improving. uJdi Rice PA-C documented [facility] Telephone encounter Note * Telephone Encounter - Madison Woodard RN - 01/17/2024 10:26 AM EDT Called and left a voicemail for the Patient to call back and ask for a nurse to receive the providers message. Madison Woodard RN [facility]10-30-2024 Telephone encounter Note* Telephone Encounter - Judi Rice PA-C - 01/17/2024 10:15 AM EDT Xray negative. Continue the albuterol and follow up if not improving. Judi Rice PA-C [facility]10-28-2024 History of Present illness Narrative* Inocente Valencia, RT(R) - 01/15/2024 12:40 PM EDT Radiology Service Progress Note PATIENT NAME: Juan M Rodriguez DATE OF SERVICE: January 15, 2024 TIME: 12:32 PM PATIENT IDENTITY VERIFICATION COMPLETED USING TWO (2) IDENTIFIERS: Name and Date of confirmedby patient verbally. FALL SCREENING: Has the patient had 2 falls in the last year or 1 fall with injury or currently using an Ambulatory Assistive Device (Walker, Cane, Wheelchair, Crutches, etc.)? No PATIENT GENDER DATA: Male PATIENT RELEVANT IMPLANT DATA REVIEWED: Yes PATIENT PRESENTS WITH AN IMPLANTABLE OR ATTACHED TURNING LATHE TENDER: No RADIOLOGY DEPARTMENT: General X-ray: Exam(s) Completed: Chest X-Ray PERIPHERAL IV DATA: Not applicable SIGNED BY: RT Prashant(R) January 15, 2024 12:32 PM documented in this [facility]10-[facility]-2024 NoteHNO ID: [id number] Author: INOCENTE VALENCIA RT(R) Service: Radiology Author Type: Technologist Type: Progress Notes Filed: 01/15/2024 12:41 Note Text: Radiology Service Progress Note PATIENT NAME: Juan M Rodriguez DATE OF SERVICE: January 15, 2024 TIME: 12:32 PM PATIENT IDENTITY VERIFICATION COMPLETED USING TWO (2) IDENTIFIERS: Name and Date of confirmed by patient verbally. FALL SCREENING: Has the patient had 2 falls in the last year or 1 fall with injury or currently using an Ambulatory Assistive Device (Walker, Cane, Wheelchair, Crutches, etc.)? No PATIENT GENDER DATA: Male PATIENT RELEVANT IMPLANT DATA REVIEWED: Yes PATIENT PRESENTS WITH AN IMPLANTABLE OR ATTACHED TURNING LATHE TENDER: No RADIOLOGY DEPARTMENT: General X-ray: Exam(s) Completed: Chest X-Ray PERIPHERAL IV DATA: Not applicable SIGNED BY: RT Prashant(Robb) January 15, 2024 12:32 [facility]10-28-2024 NoteHNO ID: [id number] Author: JUDI RICE PA-C Service: ? Author Type: Physician Care Services Manager Type: Progress Notes Filed: 01/15/2024 12:33 Note Text: Chief Complaint Patient presents with: 6 Month Exam HPI Juan M Rodriguez is a 88 year old male who presents here today for Chronic Medical Conditions.. Patient with hx of HTN, Smoker, GERD, BPH, CKD, DM2, and those as below. No concerns today. Had covid earlier this month. Past medical history, appointments, medications, allergies reviewed. Previous Medical History PAST MEDICAL HISTORY Diagnosis Date Acute pancreatitis Advance directive discussed with patient 07/07/2021 Discussed 06/2021 Anemia of chronic disease 11/03/2019 Benign prostatic hyperplasia with lower urinary tract symptoms 09/03/2018 COVID-19 virus infection 03/23/2021 03/19/2021 Diabetic eye exam (HCC) 05/07/2019 Last done: 04/30/2019 Diarrhea 07/08/2022 Consult Gastro: Dr. Sainz patient cancelled appt on 08/31/2022 and did not reschedule. Saw gastro in [place] Diverticulosis 07/08/2022 Dyslipidemia 09/03/2018 Essential hypertension 09/03/2018 GERD without esophagitis 09/03/2018 History of colonic polyps 09/03/2018 Last colonoscopy 08/2017: Needs repeat 3 yrs History of COVID-19 03/23/2021 03/19/2021 History of kidney stones 09/03/2018 Hypertensive chronic kidney disease with stage 1 through stage 4 chronic kidney disease, or unspecified chronic kidney disease 09/03/2018 Hypomagnesemia 01/23/[address] 07/07/2021 DPA: Shankar () Medicare annual wellness visit, subsequent 09/03/2018 Medicare Part B: 12/18/2001 Last done 09/03/2018 Nausea 07/08/2022 Consult Gastro: Dr. Sainz Portal hypertension (HCC) Sepsis (HCC) 2016 Smoker 09/03/2018 Started at the age of 31 up to 1 cigar a day. Stage 3b chronic kidney disease (HCC) 10/01/2019 Type 2 diabetes mellitus with stage 3b chronic kidney disease, with long-term current use of insulin (HCC) 09/03/2018 Previous Surgical History PAST SURGICAL HISTORY Procedure Laterality Date CHOLECYSTECTOMY HX 2013 COLONOSCOPY GEN ANES 02/20/2017 COLONOSCOPY SCREENING 06/21/2021 EGD EUS 06/23/2020 PAST SURGICAL HISTORY OF 2017 Left inguinal PAST SURGICAL HISTORY OF 2016 bilatreral cataracts Family History FAMILY HISTORY Problem Relation Age of Onset Hypertension Father Stroke Father Coronary Artery Disease Sister Diabetes Sister COPD Sister Cancer Sister Lung Alzheimer's Disease No Family History Colon Cancer No Family History Prostate Cancer No Family History Breast Cancer No Family History Ovarian cancer No Family History Uterine Cancer No Family History Kidney Disease No Family History Seizures No Family History Thyroid No Family History Patient Allergies ALLERGIES Allergen Reactions Dilaudid [Hydromorp* Mental Status Change Lisinopril Other: See Comments angioedema Magnesium Oxide Other: See Comments Loose stools, leg and foot pain Penicillins Unknown Current Medications Current Outpatient Medications on File Prior to Visit Medication Sig Insulin [place], Disposable, (SURE COMFORT PEN NEEDLE) 32 gauge x 5/32 1 Each four times daily. insulin aspart U-100 (NOVOLOG FLEXPEN U-100 INSULIN) 100 unit/mL (3 mL) Inject 6 Units subcutaneously three times a day before meals. lovastatin (MEVACOR) 20 mg tablet Take 1 tablet by mouth daily at bedtime. Lancets (MICROLET LANCET) 1 Each four times daily. Dx: Type 2 DM - Controlled E11.9 Insulin: Yes metFORMIN (GLUCOPHAGE) 1,000 mg tablet Take 1 tablet by mouth two times a day with meals. omeprazole (PRILOSEC) 40 mg capsule Take 1 capsule by mouth daily before breakfast. 1/2 hr before meal. blood sugar diagnostic (CONTOUR TEST STRIPS) test strip Test blood sugar(s) 4 times daily. Dx: Type 2 DM - Controlled E11.9 Insulin: Yes glimepiride (AMARYL) 1 mg tablet Take 1 tablet by mouth two times a day. amLODIPine (NORVASC) 5 mg tablet Take 1 tablet by mouth once daily. one tab daily fenofibrate (LOFIBRA) 200 mg capsule Take 1 capsule by mouth daily before breakfast. insulin glargine (BASAGLAR KWIKPEN U-100 INSULIN) 100 unit/mL (3 mL) Inject 25 Units subcutaneously daily at bedtime. Cholecalciferol, Vitamin D3, 50 mcg (2,000 unit) cap Take 1 capsule by mouth. ferrous sulfate 325 mg (65 mg iron) tablet Take 325 mg by mouth daily with breakfast. aspirin, enteric coated (ASPIRIN, ENTERIC COATED) 81 mg EC tablet Take 1 tablet by mouth once daily. Magnesium Glycinate 100 mg tab Take 1 tablet by mouth every other day. (Patient not taking: Reported on 01/15/2024) No current facility-administered medications on file prior to visit. Social History Social History Tobacco Use Smoking status: Every Day Types: Cigars Smokeless tobacco: Never Tobacco comments: 1/day Vaping Use Vaping status: Never Used Substance Use Topics Alcohol use: Yes Comment: rare Drug use: N (more content not included)...[facility]10-28-2024 History of Present illness Narrative* Judi Rice PA-C - 01/15/2024 11:51 AM EDT Chief Complaint Patient presents with: 6 Month Exam HPI Juan M Rodriguez is a 88 year old male who presents here today for Chronic Medical Conditions.. Patient with hx of HTN, Smoker, GERD, BPH, CKD, DM2, and those as below. No concerns today. Had covid earlier this month. Past medical history, appointments, medications, allergies reviewed. Previous Medical History PAST MEDICAL HISTORY Diagnosis Date Acute pancreatitis Advance directive discussed with patient 07/07/2021 Discussed 06/2021 Anemia of chronic disease 11/03/2019 Benign prostatic hyperplasia with lower urinary tract symptoms 09/03/2018 COVID-19 virus infection 03/23/2021 03/19/2021 Diabetic eye exam (HCC) 05/07/2019 Last done: 04/30/2019 Diarrhea 07/08/2022 Consult Gastro: Dr. Sainz patient cancelled appt on 08/31/2022 and did not reschedule. Saw gastro in [place] Diverticulosis 07/08/2022 Dyslipidemia 09/03/2018 Essential hypertension 09/03/2018 GERD without esophagitis 09/03/2018 History of colonic polyps 09/03/2018 Last colonoscopy 08/2017: Needs repeat 3 yrs History of COVID-19 03/23/2021 03/19/2021 History of kidney stones 09/03/2018 Hypertensive chronic kidney disease with stage 1 through stage 4 chronic kidney disease, or unspecified chronic kidney disease 09/03/2018 Hypomagnesemia 01/23/[address] 07/07/2021 DPA: Doloras () Medicare annual wellness visit, subsequent 09/03/2018 Medicare Part B: 12/18/2001 Last done 09/03/2018 Nausea 07/08/2022 Consult Gastro: Dr. Sainz Portal hypertension (HCC) Sepsis (HCC) 2016 Smoker 09/03/2018 Started at the age of 31 up to 1 cigar a day. Stage 3b chronic kidney disease (HCC) 10/01/2019 Type 2 diabetes mellitus with stage 3b chronic kidney disease, with long-term current use of insulin (HCC) 09/03/2018 Previous Surgical History PAST SURGICAL HISTORY Procedure Laterality Date CHOLECYSTECTOMY HX 2013 COLONOSCOPY GEN ANES 02/20/2017 COLONOSCOPY SCREENING 06/21/2021 EGD EUS 06/23/2020 PAST SURGICAL HISTORY OF 2017 Left inguinal PAST SURGICAL HISTORY OF 2016 bilatreral cataracts Family History FAMILY HISTORY Problem Relation Age of Onset Hypertension Father Stroke Father Coronary Artery Disease Sister Diabetes Sister COPD Sister Cancer Sister Lung Alzheimer's Disease No Family History Colon Cancer No Family History Prostate Cancer No Family History Breast Cancer No Family History Ovarian cancer No Family History Uterine Cancer No Family History Kidney Disease No Family History Seizures No Family History Thyroid No Family History Patient Allergies ALLERGIES Allergen Reactions Dilaudid [Hydromorp* Mental Status Change Lisinopril Other: See Comments angioedema Magnesium Oxide Other: See Comments Loose stools, leg and foot pain Penicillins Unknown Current Medications Current Outpatient Medications on File Prior to Visit Medication Sig Insulin [place], Disposable, (SURE COMFORT PEN NEEDLE) 32 gauge x 5/32 1 Each four times daily. insulin aspart U-100 (NOVOLOG FLEXPEN U-100 INSULIN) 100 unit/mL (3 mL) Inject 6 Units subcutaneously three times a day before meals. lovastatin (MEVACOR) 20 mg tablet Take 1 tablet by mouth daily at bedtime. Lancets (MICROLET LANCET) 1 Each four times daily. Dx: Type 2 DM - Controlled E11.9 Insulin: Yes metFORMIN (GLUCOPHAGE) 1,000 mg tablet Take 1 tablet by mouth two times a day with meals. omeprazole (PRILOSEC) 40 mg capsule Take 1 capsule by mouth daily before breakfast. 1/2 hr before meal. blood sugar diagnostic (CONTOUR TEST STRIPS) test strip Test blood sugar(s) 4 times daily. Dx: Type2 DM - Controlled E11.9 Insulin: Yes glimepiride (AMARYL) 1 mg tablet Take 1 tablet by mouth two times a day. amLODIPine (NORVASC) 5 mg tablet Take 1 tablet by mouth once daily. one tab daily fenofibrate (LOFIBRA) 200 mg capsule Take 1 capsule by mouth daily before breakfast. insulin glargine (BASAGLAR KWIKPEN U-100 INSULIN) 100 unit/mL (3 mL) Inject 25 Units subcutaneouslydaily at bedtime. Cholecalciferol, Vitamin D3, 50 mcg (2,000 unit) cap Take 1 capsule by mouth. ferrous sulfate 325 mg (65 mg iron) tablet Take 325 mg by mouth daily with breakfast. aspirin, enteric coated (ASPIRIN, ENTERIC COATED) 81 mg EC tablet Take 1 tablet by mouth once daily. Magnesium Glycinate 100 mg tab Take 1 tablet by mouth every other day. (Patient not taking: Reported on 01/15/2024) No current facility-administered medications on file prior to visit. Social History Social History Tobacco Use Smoking status: Every Day Types: Cigars Smokeless tobacco: Never Tobacco comments: 1/day Vaping Use Vaping status: Never Used Substance Use Topics Alcohol use: Yes Comment: rare Drug use: Never Review of Symptoms REVIEW OF SYSTEMS GENERAL: No weight loss, malaise or fevers NECK: Negative for lumps, goiter, pain and significant neck swelling RESPIRATORY: Negative for cough, hemoptysis, wheezing, COPD, dyspnea or shortness of breath CARDIOVASCULAR: Negative for chest pain, leg swelling, CHF or palpitations NEURO: No history of headaches, syncope, paralysis, seizures or tremors EXAM: BP 108/60 (BP Site: Left Arm, BP Position: Sitting, BP Cuff Size: Large Adult) Pulse 99 Temp 36.4 C (97.6 F) Resp 18 Wt 99.3 kg (219 lb) SpO2 93% BMI 29.70 kg/m General Appearance: Well appearing, alert, in no acute distress, well-hydrated, well nourished. andOverweight. Neck: Supple, no adenopathy; thyroid symmetric, normal size, no bruits. Lungs: lungs with wheezing b/l bases. Heart: RRR without murmur, gallop, or rubs. No ectopy. Extremities: No deformities, edema, skin discoloration, clubbing or cyanosis. Good capillary refill. . Peripheral Pulses: Normal. Health Maintenance List Covid-19 Vaccine( season) due on 11/19/2023 Dilated Retinal Exam due on 06/26/2024 Urine Albumin:Creatinine Ratio due on 07/06/2024 HbA1C due on 07/09/2024 Diabetic Foot Exam due on 07/11/2024 Depression Screening due on 07/11/2024 Anxiety Screening due on 07/11/2024 LDL Cholesterol due on 01/08/2025 DTaP,Tdap,Td Vaccine(3 - Td or Tdap) due on 02/18/2032 Influenza Vaccine Completed Advance Directive Discussion Completed RSV Vaccine Completed Shingrix Vaccine Completed Pneumococcal Vaccine: 65+ Completed Data reviewed Latest Ref Rng 01/09/2024 WBC 3.70 - 11.00 k/uL 10.25 RBC 4.20 - 6.00 m/uL 4.50 Hemoglobin 13.0 - 17.0 g/dL 11.6 (L) Hematocrit 39.0 - 51.0 % 37.0 (L) MCV 80.0 - 100.0 fL 82.2 MCH 26.0 - 34.0 pg 25.8 (L) MCHC 30.5 - 36.0 g/dL 31.4 RDW-CV 11.5 - 15.0 % 16.3 (H) Platelet Count 150 - 400 k/uL 415 (H) MPV 9.0 - 12.7 fL 10.8 Neut% % 64.6 Abs Neut (ANC) 1.45 - 7.50 k/uL 6.62 Lymph% % 26.5 Abs Lymph 1.00 - 4.00 k/uL 2.72 Schleicher% % 5.9 Abs Schleicher <0.87 k/uL 0.60 Eosin% % 2.0 Abs Eosin <0.46 k/uL 0.21 Baso% % 0.4 Abs Baso <0.11 k/uL 0.04 Immature Gran % % 0.6 IMMATURE GRANS (ABS) <0.10 k/uL 0.06 NRBC /100 WBC 0.0 Absolute nRBC <0.01 k/uL <0.01 DTYPE Auto Glucose 74 - 99 mg/dL 140 (H) BUN 9 - 24 mg/dL 18 Creatinine 0.73 - 1.22 mg/dL 1.49 (H) Sodium 136 - 144 mmol/L 140 Potassium 3.7 - 5.1 mmol/L 4.4 Chloride 98 - 107 mmol/L 104 CO2 22 - 30 mmol/L 23 Anion Gap 8 - 15 mmol/L 13 Calcium 8.5 - 10.2 mg/dL 10.1 eGFR >=60 mL/min/1.73m 45 (L) Total Cholesterol, Nonfasting <200 mg/dL 135 Triglycerides, Nonfasting <150 mg/dL 167 (H) HDL Cholesterol, Nonfasting >39 mg/dL 50 LDL Cholesterol, Nonfasting <100 mg/dL 52 Non HDL Cholesterol, Nonfasting <130 mg/dL 85 VLDL Cholesterol, Nonfasting <30 mg/dL 33 (H) Total Chol/HDL Ratio, Nonfasting <5.10 mg/dL 2.70 LDL/HDL Ratio, Nonfasting <2.54 mg/dL 1.04 Hemoglobin A1C 4.3 - 5.6 % 6.4 (H) Estimated Average Glucose mg/dL 137 Legend: (L) Low (H) High ASSESSMENT/PLAN: 1. Type 2 diabetes mellitus with stage 3b chronic kidney disease, with long-term current use of insulin (HCC) - ICD9: 250.40, 585.3, V58.67, ICD10: E11.22, N18.32, Z79.4 (primary diagnosis) - Controlled - Continue current medications - eGFR: 45 Stable - Counseled on avoiding NSAIDs, adequate hydration - HEMOGLOBIN A1C - COMPREHENSIVE METABOLIC PANEL - COMPLETE BLOOD COUNT AND DIFFERENTIAL - ALBUMIN/CREATININE RATIO, URINE - URINALYSIS, WITH MICROSCOPIC 2. Essential hypertension - ICD9: 401.9, ICD10: I10 - Controlled - Continue current medications - Recommend home blood pressure monitoring, to bring results to next visit - Encouraged sodium restriction, DASH or Mediterranean diet - Recommend regular aerobic exercise 3. Hypertensive chronic kidney disease with stage 1 through stage 4 chronic kidney disease, or unspecified chronic kidney disease - ICD9: 403.90, ICD10: I12.9 - Controlled - Recommend home blood pressure monitoring, to bring results to next visit - Encouraged sodium restriction, DASH or Mediterranean diet - Recommend regular aerobic exercise 4. Smoker - ICD9: 305.1, ICD10: F17.200 - Cessation encouraged. - Physiologic and physical aspects of tobacco addiction as well as strategies for quitting were discussed. - Counseling was given focusing on the harmful effects of this addiction especially given the patient's medical condition(s) which will be worsened because of the chemicals in tobacco. 5. GERD without esophagitis - ICD9: 530.81, ICD10: K21.9 - stable 6. Nausea - ICD9: 787.02, ICD10: R11.0 stable 7. Benign prostatic hyperplasia with lower urinary tract symptoms, symptom details unspecified - ICD9: 600.01, ICD10: N40.1 8. Stage 3b chronic kidney disease (HCC) - ICD9: 585.3, ICD10: N18.32 - eGFR: 45 Stable - Counseled on avoiding NSAIDs, adequate hydration 9. Dyslipidemia - ICD9: 272.4, ICD10: E78.5 - Controlled - Continue current medications - Counseled on healthy diet and regular exercise - LIPID PANEL, NONFASTING 10. COVID-19 - ICD9: 079.89, ICD10: U07.1 Improving. Will get cxr - XR CHEST 2V FRONTAL/LAT 11. SOB (shortness of breath) - ICD9: 786.05, ICD10: R06.02 Check: - XR CHEST 2V FRONTAL/LAT 12. Medication management - ICD9: V58.69, ICD10: Z79.899 - MAGNESIUM - VITAMIN B12 Judi Rice PA-C [facility] Telephone encounter Note * Telephone Encounter - Evangelista Fisher LPN - 01/03/2024 10:57 AM EDT Prescription Refill Information The patient has been identified by name and date of : Yes Caregiver verified no other encounters exist for this prescription request: Yes Caregiver confirmed with patient/requestor that no other refills are due, in the near future, with this provider at this time: Yes The last office visit in the department: 07/12/23 Does the patient have a future office visit with this provider/department: Yes Requested Prescriptions Pending Prescriptions Disp Refills Insulin [place], Disposable, (SURE COMFORT PEN NEEDLE) 32 gauge x 5/32 200 Each 11 Si Each four times daily. Evangelista Fisher LPN January 03, 2024 10:58 AM [facility]10-16-2024 Miscellaneous Notes* Telephone Encounter - Evangelista Fisher LPN - 01/03/2024 10:57 AM EDT Prescription Refill Information The patient has been identified by name and date of : Yes Caregiver verified no other encounters exist for this prescription request: Yes Caregiver confirmed with patient/requestor that no other refills are due, in the near future, with this provider at this time: Yes The last office visit in the department: 07/12/23 Does the patient have a future office visit with this provider/department: Yes Requested Prescriptions Pending Prescriptions Disp Refills Insulin [place], Disposable, (SURE COMFORT PEN NEEDLE) 32 gauge x 5/32 200 Each 11 Si Each four times daily. Evangelista Fisher LPN January 03, 2024 10:58 AM documented in this [facility]10-[facility] Telephone encounter Note * Telephone Encounter - Taye Horan MD - 12/27/2023 12:14 PM EDT The following approved medication requests have been transmitted electronically. Requested Prescriptions Signed Prescriptions Disp Refills insulin aspart U-100 (NOVOLOG FLEXPEN U-100 INSULIN) 100 unit/mL (3 mL) 5 Each 1 Sig: Inject 6 Units subcutaneously three times a day before meals. Authorizing Provider: TAYE HORAN MD [facility] Miscellaneous Notes* Telephone Encounter - Taye Horan MD - 12/27/2023 12:14 PM EDT The following approved medication requests have been transmitted electronically. Requested Prescriptions Signed Prescriptions Disp Refills insulin aspart U-100 (NOVOLOG FLEXPEN U-100 INSULIN) 100 unit/mL (3 mL) 5 Each 1 Sig: Inject 6 Units subcutaneously three times a day before meals. Authorizing Provider: TAYE HORAN MD * Telephone Encounter - Martha Naranjo RN - 12/27/2023 11:41 AM EDT The patient has been identified by name and date of : Yes Caregiver verified no other encounters exist for this prescription request: Yes Caregiver confirmed with patient/requestor that no other refills are due, in the near future, with this provider at this time: Yes The last office visit in the department: 07/12/2023 Does the patient have a future office visit with this provider/department: Yes 01/15/2024 Requested Prescriptions Pending Prescriptions Disp Refills insulin aspart, niacinamide, (FIASP FLEXTOUCH U-100 INSULIN) 100 unit/mL (3 mL) pen 5 Each 1 Sig: Inject 6 Units subcutaneously three times a day before meals. Martha Naranjo RN December 27, 2023 11:41 AM documented in this encounter[facility]10-[facility]24 Telephone encounter Note * Telephone Encounter - Martha Naranjo RN - 12/27/2023 11:41 AM EDT The patient has been identified by name and date of : Yes Caregiver verified no other encounters exist for this prescription request: Yes Caregiver confirmed with patient/requestor that no other refills are due, in the near future, with this provider at this time: Yes The last office visit in the department: 07/12/2023 Does the patient have a future office visit with this provider/department: Yes 01/15/2024 Requested Prescriptions Pending Prescriptions Disp Refills insulin aspart, niacinamide, (FIASP FLEXTOUCH U-100 INSULIN) 100 unit/mL (3 mL) pen 5 Each 1 Sig: Inject 6 Units subcutaneously three times a day before meals. Martha Naranjo RN December 27, 2023 11:41 AM [facility]10-08-[facility]24 Telephone encounter Note* Telephone Encounter - Taye Horan MD - 12/26/2023 1:46 PM EDT Noted. [facility] Miscellaneous Notes* Telephone Encounter - Taye Horan MD - 12/26/2023 1:46 PM EDT Noted. * Telephone Encounter - Mayra Valdez RN - 12/26/2023 1:26 PM EDT Patient phoned to let pcp know, he received a letter from Medicare Insurance, telling him in 2024, fiasp will no longer be covered. Letter states in 2024, provider will need to order INSULIN ASPART for patient instead, because this is what they will cover in 2024. Advised patient to remind provider when he calls for refills, closer to March. Patient agreeable. documented in this encounter[facility]10-08-2024 Telephone encounter Note * Telephone Encounter - Mayra Valdez RN - 12/26/2023 1:26 PM EDT Patient phoned to let pcp know, he received a letter from Medicare Insurance, telling him in 2024, fiasp will no longer be covered. Letter states in 2024, provider will need to order INSULIN ASPART for patient instead, because this is what they will cover in 2024. Advised patient to remind provider when he calls for refills, closer to March. Patient agreeable. [facility]24 NoteHNO ID: [id number] Author: FREDA NASCIMENTO RN Service: ? Author Type: Registered Nurse Type: Progress Notes Filed: 12/22/2023 13:40 Note Text: CDM Telephonic Outreach Spoke to Juan M today -Both he and his have COVID, fairly mild case, both on medications -States I feel like a wet rag. -Has a dry cough and is tired -Suggested trying some Mucinex, he will look into this. -Provided with phone number to the appt line to possibly find a new PCP. -Denies any other CDM needs or concerns -Would like a call in 2 weeks. Contacted for: Routine Telephonic Outreach Contact made with patient: Yes Patient identified by name and date of . Discussed care with patient Are you experiencing any new or worsening symptoms you need to talk about today? No Disease Specific Do you check your blood pressure at home? No Do you have new or worsening shortness of breath with activity? No Do you feel like you are dehydrated for any reason, including not being able to eat or drink normally, or having less urine/much darker urine than normal for you? No Do you check your daily weight at home? No Based on sales solutions associate, the following disposition is advised: No symptoms or symptoms present, not severe. Routed to: No Action Needed [place] Education Provided this Outreach: No Freda Nascimento RN December 22, 2023 1:38 [facility]10-04-2024 History of Present illness Narrative* Frdea Nascimento RN - 12/22/2023 1:15 PM EDT CDM Telephonic Outreach Spoke to Juan M today -Both he and his have COVID, fairly mild case, both on medications -States I feel like a wet rag. -Has a dry cough and is tired -Suggested trying some Mucinex, he will look into this. -Provided with phone number to the appt line to possibly find a new PCP. -Denies any other CDM needs or concerns -Would like a call in 2 weeks. Contacted for: Routine Telephonic Outreach Contact made with patient: Yes Patient identified by name and date of . Discussed care with patient Are you experiencing any new or worsening symptoms you need to talk about today? No Disease Specific Do you check your blood pressure at home? No Do you have new or worsening shortness of breath with activity? No Do you feel like you are dehydrated for any reason, including not being able to eat or drink normally, or having less urine/much darker urine than normal for you? No Do you check your daily weight at home? No Based on sales solutions associate, the following disposition is advised: No symptoms or symptoms present, not severe. Routed to: No Action Needed [place] Education Provided this Outreach: No Freda Nascimento RN December 22, 2023 1:38 PM [facility] NotePatient Outreach ([facility]) JUAN M RODRIGUEZ ([id number]) 1935 M [place] Date Time Provider Department 12/22/23 FREDA NASCIMENTO During your visit today, we recorded the following information about you: Freda Nascimento RN 12/22/2023 1:40 PM Signed CDM Telephonic Outreach Spoke to Juan M today -Both he and his have COVID, fairly mild case, both on medications -States I feel like a wet rag. -Has a dry cough and is tired -Suggested trying some Mucinex, he will look into this. -Provided with phone number to the appt line to possibly find a new PCP. -Denies any other CDM needs or concerns -Would like a call in 2 weeks. Contacted for: Routine Telephonic Outreach Contact made with patient: Yes Patient identified by name and date of . Discussed care with patient Are you experiencing any new or worsening symptoms you need to talk about today? No Disease Specific Do you check your blood pressure at home? No Do you have new or worsening shortness of breath with activity? No Do you feel like you are dehydrated for any reason, including not being able to eat or drink normally, or having less urine/much darker urine than normal for you? No Do you check your daily weight at home? No Based on sales solutions associate, the following disposition is advised: No symptoms or symptoms present, not severe. Routed to: No Action Needed [place] Education Provided this Outreach: No Freda Nascimento RN December 22, 2023 1:38 PM Allergies As of Date: 12/22/2023 Noted Allergy Reaction DILAUDID (HYDROMORPHONE (BULK)) 09/03/2018 1 - Mental Status Change LISINOPRIL 12/24/2014 14 - Other: See Comments Comments: angioedema MAGNESIUM OXIDE 11/10/2021 14 - Other: See Comments Comments: Loose stools, leg and foot pain PENICILLINS 12/16/2002 16 - Unknown Date Reviewed: 07/14/2023 Reviewed by: Taye Horan MD - Fully Assessed Reason for Visit: CDM [Other] Cmt: CDM Telephonic Outreach Prescriptions as of 12/22/2023 - lovastatin (MEVACOR) 20 mg tablet Take 1 tablet by mouth daily at bedtime. - Lancets (MICROLET LANCET) 1 Each four times daily. Dx: Type 2 DM - Controlled E11.9 Insulin: Yes - metFORMIN (GLUCOPHAGE) 1,000 mg tablet Take 1 tablet by mouth two times a day with meals. - omeprazole (PRILOSEC) 40 mg capsule Take 1 capsule by mouth daily before breakfast. 1/2 hr before meal. - blood sugar diagnostic (CONTOUR TEST STRIPS) test strip Test blood sugar(s) 4 times daily. Dx: Type 2 DM - Controlled E11.9 Insulin: Yes - glimepiride (AMARYL) 1 mg tablet Take 1 tablet by mouth two times a day. - insulin aspart, niacinamide, (FIASP FLEXTOUCH U-100 INSULIN) 100 unit/mL (3 mL) pen Inject 6 Units subcutaneously three times a day before meals. - amLODIPine (NORVASC) 5 mg tablet Take 1 tablet by mouth once daily. one tab daily - fenofibrate (LOFIBRA) 200 mg capsule Take 1 capsule by mouth daily before breakfast. - insulin glargine (BASAGLAR KWIKPEN U-100 INSULIN) 100 unit/mL (3 mL) Inject 25 Units subcutaneously daily at bedtime. - Insulin [place], Disposable, (SURE COMFORT PEN NEEDLE) 32 gauge x 5/32 1 Each four times daily. - Magnesium Glycinate 100 mg tab Take 1 tablet by mouth every other day. - Cholecalciferol, Vitamin D3, 50 mcg (2,000 unit) cap Take 1 capsule by mouth. - ferrous sulfate 325 mg (65 mg iron) tablet Take 325 mg by mouth daily with breakfast. - aspirin, enteric coated (ASPIRIN, ENTERIC COATED) 81 mg EC tablet Take 1 tablet by mouth once daily. Problem List As Of Date 12/22/2023 Noted Resolved Type 2 diabetes mellitus with stage 3b chronic *09/03/2018 Dyslipidemia [E78.5] 09/03/2018 GERD without esophagitis [K21.9] 09/03/2018 Hypertensive chronic kidney disease with stage *09/03/2018 History of kidney stones [Z87.442] 09/03/2018 History of colonic polyps [Z86.0100] 09/03/2018 Smoker [F17.200] 09/03/2018 Benign prostatic hyperplasia with lower urinary*09/03/2018 Medicare annual wellness visit, subsequent [Z00*09/03/2018 Hypomagnesemia [E83.42] 01/23/2019 Diabetic eye exam (HCC) [Z01.00, E11.9] 05/07/2019 Stage 3b chronic kidney disease (HCC) [N18.32] 10/01/2019 Anemia of chronic disease [D63.8] 11/03/2019 Essential hypertension [I10] 09/03/2018 Medication management [Z79.899] 08/28/2020 History of COVID-19 [Z86.16] 03/23/[address] [Z78.9] 07/07/2021 Advance directive discussed with patient [Z71.8*07/07/2021 Diverticulosis [K57.90] 07/08/2022 Neck pain [M54.2] 07/08/2022 Diarrhea [R19.7] 07/08/2022 Nausea [R11.0] 07/08/2022 Encounter Status:Closed by FREDA NASCIMENTO on 12/22/23[facility] 12-12-2023 NoteHNO ID: [id number] Author: EVANGELISTA FISHER LPN Service: ? Author Type: LICENSED NURSE Type: Progress Notes Filed: 12/12/2023 11:56 Note Text: Scan on 12/12/2023 10:12 AM by ProviderEssie PA-C: Consultation - [facility]09-24-2024 History of Present illness Narrative* Evangelista Fisher LPN - 12/12/2023 11:55 AM EDT Scan on 12/12/2023 10:12 AM by ProviderEssie PA-C: Consultation - [facility] Telephone encounter Note * Telephone Encounter - Taye Horan MD - 11/27/2023 2:07 PM EDT The following approved medication requests have been transmitted electronically. Requested Prescriptions Signed Prescriptions Disp Refills lovastatin (MEVACOR) 20 mg tablet 90 tablet 1 Sig: Take 1 tablet by mouth daily at bedtime. Authorizing Provider: TAYE HORAN MD [facility]09-09-2024 Miscellaneous Notes* Telephone Encounter - Taye Horan MD - 11/27/2023 2:07 PM EDT The following approved medication requests have been transmitted electronically. Requested Prescriptions Signed Prescriptions Disp Refills lovastatin (MEVACOR) 20 mg tablet 90 tablet 1 Sig: Take 1 tablet by mouth daily at bedtime. Authorizing Provider: TAYE HORAN MD * Telephone Encounter - Hyun Dave RN - 11/27/2023 9:49 AM EDT The patient has been identified by name and date of : Yes Caregiver verified no other encounters exist for this prescription request: Yes Caregiver confirmed with patient/requestor that no other refills are due, in the near future, with this provider at this time: Yes The last office visit in the department: 07/12/2023 Does the patient have a future office visit with this provider/department: 01/15/2024 Requested Prescriptions Pending Prescriptions Disp Refills lovastatin (MEVACOR) 20 mg tablet 90 tablet 1 Sig: Take 1 tablet by mouth daily at bedtime. Hyun Dave RN November 27, 2023 9:49 AM documented in this encounter[facility]09-[facility]-2024 Telephone encounter Note * Telephone Encounter - Hyun Dave RN - 11/27/2023 9:49 AM EDT The patient has been identified by name and date of : Yes Caregiver verified no other encounters exist for this prescription request: Yes Caregiver confirmed with patient/requestor that no other refills are due, in the near future, with this provider at this time: Yes The last office visit in the department: 07/12/2023 Does the patient have a future office visit with this provider/department: 01/15/2024 Requested Prescriptions Pending Prescriptions Disp Refills lovastatin (MEVACOR) 20 mg tablet 90 tablet 1 Sig: Take 1 tablet by mouth daily at bedtime. Hyun Dave RN November 27, 2023 9:49 AM [facility]09-04-2024 Telephone encounter Note* Telephone Encounter - Taye Horan MD - 11/22/2023 7:44 PM EDT The following approved medication requests have been transmitted electronically. Requested Prescriptions Signed Prescriptions Disp Refills Lancets (MICROLET LANCET) 200 Each 2 Si Each four times daily. Dx: Type 2 DM - Controlled E11.9 Insulin: Yes Authorizing Provider: TAYE HORAN MD [facility]09-04-2024 Miscellaneous Notes* Telephone Encounter - Taye Horan MD - 11/22/2023 7:44 PM EDT The following approved medication requests have been transmitted electronically. Requested Prescriptions Signed Prescriptions Disp Refills Lancets (MICROLET LANCET) 200 Each 2 Si Each four times daily. Dx: Type 2 DM - Controlled E11.9 Insulin: Yes Authorizing Provider: TAYE HORAN MD * Telephone Encounter - Funmi Helm LPN - 11/22/2023 4:24 PM EDT Pt calling for a refill. Pt states he was told by pharmacist that medicare requires a new Rx every 6 mths instead of yearly. The patient has been identified by name and date of : Yes Caregiver verified no other encounters exist for this prescription request: Yes Caregiver confirmed with patient/requestor that no other refills are due, in the near future, with this provider at this time: Yes The last office visit in the department: 07/12/2023 Does the patient have a future office visit with this provider/department: Yes 01/15/2024 Requested Prescriptions Pending Prescriptions Disp Refills Lancets (MICROLET LANCET) 200 Each 3 Si Each four times daily. Dx: Type 2 DM - Controlled E11.9 Insulin: Yes Funmi Helm LPN November 22, 2023 4:25 PM documented in this encounter[facility]09-04-2024 Telephone encounter Note * Telephone Encounter - Funmi Helm LPN - 11/22/2023 4:24 PM EDT Pt calling for a refill. Pt states he was told by pharmacist that medicare requires a new Rx every 6 mths instead of yearly. The patient has been identified by name and date of : Yes Caregiver verified no other encounters exist for this prescription request: Yes Caregiver confirmed with patient/requestor that no other refills are due, in the near future, with this provider at this time: Yes The last office visit in the department: 07/12/2023 Does the patient have a future office visit with this provider/department: Yes 01/15/2024 Requested Prescriptions Pending Prescriptions Disp Refills Lancets (MICROLET LANCET) 200 Each 3 Si Each four times daily. Dx: Type 2 DM - Controlled E11.9 Insulin: Yes Funmi Helm LPN November 22, 2023 4:25 PM [facility]08-28-2024 NoteHNO ID: [id number] Author: NANCY VANESSA RN Service: ? Author Type: Registered Nurse Type: Progress Notes Filed: 11/15/2023 10:07 Note Text: CDM Telephonic Outreach Provider Action/FYI Contacted for: Routine Telephonic Outreach Contact made with patient: Yes Patient identified by name and date of . Discussed care with patient Are you experiencing any new or worsening symptoms you need to talk about today? No Disease Specific Do you check your blood pressure at home? No Do you have new or worsening shortness of breath with activity? No Do you feel like you are dehydrated for any reason, including not being able to eat or drink normally, or having less urine/much darker urine than normal for you? No Do you check your daily weight at home? Yes, Have you noticed a sudden gain in weight greater than three pounds in a day or three pounds in a week? No patient is attempting to loose weight. Based on sales solutions associate, the following disposition is advised: No symptoms or symptoms present, not severe. Routed to: No Action Needed [place] Education Provided this Outreach: No Nancy Vanessa RN November 15, 2023 10:07 [facility]08-28-2024 History of Present illness Narrative* Nancy Vanessa RN - 11/15/2023 9:51 AM EDT [facility] Telephonic Outreach Provider Action/KATIE Contacted for: Routine Telephonic Outreach Contact made with patient: Yes Patient identified by name and date of . Discussed care with patient Are you experiencing any new or worsening symptoms you need to talk about today? No Disease Specific Do you check your blood pressure at home? No Do you have new or worsening shortness of breath with activity? No Do you feel like you are dehydrated for any reason, including not being able to eat or drink normally, or having less urine/much darker urine than normal for you? No Do you check your daily weight at home? Yes, Have you noticed a sudden gain in weight greater than three pounds in a day or three pounds in a week? No patient is attempting to loose weight. Based on sales solutions associate, the following disposition is advised: No symptoms or symptoms present, not severe. Routed to: No Action Needed [place] Education Provided this Outreach: No Nancy Vanessa RN November 15, 2023 10:07 AM documented in this encounter[facility]08-28-2024 NotePatient Outreach (AMBCMG) JUAN M RODRIGUEZ ([id number]) 1935 M [place] Date Time Provider Department 11/15/23 NANCY VANESSA AMBRAMONITA During your visit today, we recorded the following information about you: Nancy Vanessa RN 11/15/2023 10:07 AM Signed [facility] Telephonic Outreach Provider Lili/FYKelley Contacted for: Routine Telephonic Outreach Contact made with patient: Yes Patient identified by name and date of . Discussed care with patient Are you experiencing any new or worsening symptoms you need to talk about today? No Disease Specific Do you check your blood pressure at home? No Do you have new or worsening shortness of breath with activity? No Do you feel like you are dehydrated for any reason, including not being able to eat or drink normally, or having less urine/much darker urine than normal for you? No Do you check your daily weight at home? Yes, Have you noticed a sudden gain in weight greater than three pounds in a day or three pounds in a week? No patient is attempting to loose weight. Based on sales solutions associate, the following disposition is advised: No symptoms or symptoms present, not severe. Routed to: No Action Needed [place] Education Provided this Outreach: No Nancy Vanessa RN November 15, 2023 10:07 AM Allergies As of Date: 11/15/2023 Noted Allergy Reaction DILAUDID (HYDROMORPHONE (BULK)) 09/03/2018 1 - Mental Status Change LISINOPRIL 12/24/2014 14 - Other: See Comments Comments: angioedema MAGNESIUM OXIDE 11/10/2021 14 - Other: See Comments Comments: Loose stools, leg and foot pain PENICILLINS 12/16/2002 16 - Unknown Date Reviewed: 07/14/2023 Reviewed by: Taye Horan MD - Fully Assessed Reason for Visit: Community Monitoring Outreach [Other] Prescriptions as of 11/15/2023 - metFORMIN (GLUCOPHAGE) 1,000 mg tablet Take 1 tablet by mouth two times a day with meals. - omeprazole (PRILOSEC) 40 mg capsule Take 1 capsule by mouth daily before breakfast. 1/2 hr before meal. - blood sugar diagnostic (CONTOUR TEST STRIPS) test strip Test blood sugar(s) 4 times daily. Dx: Type 2 DM - Controlled E11.9 Insulin: Yes - glimepiride (AMARYL) 1 mg tablet Take 1 tablet by mouth two times a day. - insulin aspart, niacinamide, (FIASP FLEXTOUCH U-100 INSULIN) 100 unit/mL (3 mL) pen Inject 6 Units subcutaneously three times a day before meals. - amLODIPine (NORVASC) 5 mg tablet Take 1 tablet by mouth once daily. one tab daily - Lancets (MICROLET LANCET) 1 Each four times daily. Dx: Type 2 DM - Controlled E11.9 Insulin: Yes - fenofibrate (LOFIBRA) 200 mg capsule Take 1 capsule by mouth daily before breakfast. - lovastatin (MEVACOR) 20 mg tablet Take 1 tablet by mouth daily at bedtime. - insulin glargine (BASAGLAR KWIKPEN U-100 INSULIN) 100 unit/mL (3 mL) Inject 25 Units subcutaneously daily at bedtime. - Insulin [place], Disposable, (SURE COMFORT PEN NEEDLE) 32 gauge x 5/32 1 Each four times daily. - Magnesium Glycinate 100 mg tab Take 1 tablet by mouth every other day. - Cholecalciferol, Vitamin D3, 50 mcg (2,000 unit) cap Take 1 capsule by mouth. - ferrous sulfate 325 mg (65 mg iron) tablet Take 325 mg by mouth daily with breakfast. - aspirin, enteric coated (ASPIRIN, ENTERIC COATED) 81 mg EC tablet Take 1 tablet by mouth once daily. 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 *09/03/2018 Dyslipidemia [E78.5] 09/03/2018 GERD without esophagitis [K21.9] 09/03/2018 Hypertensive chronic kidney disease with stage *09/03/2018 History of kidney stones [Z87.442] 09/03/2018 History of colonic polyps [Z86.010] 09/03/2018 Smoker [F17.200] 09/03/2018 Benign prostatic hyperplasia with lower urinary*09/03/2018 Medicare annual wellness visit, subsequent [Z00*09/03/2018 Hypomagnesemia [E83.42] 01/23/2019 Diabetic eye exam (HCC) [Z01.00, E11.9] 05/07/2019 Stage 3b chronic kidney disease (HCC) [N18.32] 10/01/2019 Anemia of chronic disease [D63.8] 11/03/2019 Essential hypertension [I10] 09/03/2018 Medication management [Z79.899] 08/28/2020 History of COVID-19 [Z86.16] 03/23/[address] [Z78.9] 07/07/2021 Advance directive discussed with patient [Z71.8*07/07/2021 Diverticulosis [K57.90] 07/08/2022 Neck pain [M54.2] 07/08/2022 Diarrhea [R19.7] 07/08/2022 Nausea [R11.0] 07/08/2022 Encounter Status:Closed by NANCY VANESSA on 11/15/23[facility] 11-07-2023 Telephone encounter Note* Telephone Encounter - Evangelista Fisher LPN - 11/07/2023 10:53 AM EDT Prescription Refill Information The patient has been identified by name and date of : Yes Caregiver verified no other encounters exist for this prescription request: Yes Caregiver confirmed with patient/requestor that no other refills are due, in the near future, with this provider at this time: Yes The last office visit in the department: 07/12/23 Does the patient have a future office visit with this provider/department: Yes Requested Prescriptions Pending Prescriptions Disp Refills metFORMIN (GLUCOPHAGE) 1,000 mg tablet 180 tablet 1 Sig: Take 1 tablet by mouth two times a day with meals. Evangelista Fisher LPN November 07, 2023 10:53 AM [facility]08-20-2024 Miscellaneous Notes* Telephone Encounter - Evangelista Fisher LPN - 11/07/2023 10:53 AM EDT Prescription Refill Information The patient has been identified by name and date of : Yes Caregiver verified no other encounters exist for this prescription request: Yes Caregiver confirmed with patient/requestor that no other refills are due, in the near future, with this provider at this time: Yes The last office visit in the department: 07/12/23 Does the patient have a future office visit with this provider/department: Yes Requested Prescriptions Pending Prescriptions Disp Refills metFORMIN (GLUCOPHAGE) 1,000 mg tablet 180 tablet 1 Sig: Take 1 tablet by mouth two times a day with meals. Evangelista Fisher LPN November 07, 2023 10:53 AM * Telephone Encounter - Vanessa Bills - 11/07/2023 9:41 AM EDT Prescription Refill Information The patient has been identified by name and date of : Yes Caregiver verified no other encounters exist for this prescription request: Yes Caregiver confirmed with patient/requestor that no other refills are due, in the near future, with this provider at this time: Yes The last office visit in the department: 07/12/23 Does the patient have a future office visit with this provider/department: Yes Requested Prescriptions Pending Prescriptions Disp Refills metFORMIN (GLUCOPHAGE) 1,000 mg tablet 180 tablet 1 Sig: Take 1 tablet by mouth two times a day with meals. Vanessa Ritter November 07, 2023 9:41 AM documented in this encounter[facility]08-[facility]-2024 Telephone encounter Note * Telephone Encounter - Vanessa Bills - 11/07/2023 9:41 AM EDT Prescription Refill Information The patient has been identified by name and date of : Yes Caregiver verified no other encounters exist for this prescription request: Yes Caregiver confirmed with patient/requestor that no other refills are due, in the near future, with this provider at this time: Yes The last office visit in the department: 07/12/23 Does the patient have a future office visit with this provider/department: Yes Requested Prescriptions Pending Prescriptions Disp Refills metFORMIN (GLUCOPHAGE) 1,000 mg tablet 180 tablet 1 Sig: Take 1 tablet by mouth two times a day with meals. Vanessa Ritter November 07, 2023 9:41 AM [facility]08-17-2024 NoteHNO ID: [id number] Author: BOBBI BARRERA RN Service: ? Author Type: Registered Nurse Type: Progress Notes Filed: 11/04/2023 13:59 Note Text: Transitional Care Management (TCM) Follow-Up Note PCP Update / Actionable Items N/A - No specialty updates needed Patient Source: [id number] ([facility]) Discharge Outreach summary _ Spouse answered, states in a restaurant at this time. Reports Juan M is doing well with no primary care questions at this time. Patient discharged from [facility] Discharge date: 10/09/2023 Admitted for: abdominal pain, nausea, kidney stones Readmission Risk: n/a Value-Based Contract: ACO Contact: Contact made with patient: Yes Spoke to: SpouseMckenzie Validation: Validated the person spoken to is actively involved in the patient's care. The patient was identified by Name and Date of . I'd like to get an update on how you're doing since our last phone call. Is now a good time to talk? No. Bobbi Barrera RN November 04, 2023 1:58 [facility]08-17-2024 History of Present illness Narrative* Bobbi Barrera RN - 11/04/2023 1:56 PM EDT Transitional Care Management (TCM) Follow-Up Note PCP Update / Actionable Items N/A - No specialty updates needed Patient Source: [facility] ([facility]ON) Discharge Outreach summary _ Spouse answered, states in a restaurant at this time. Reports Juan M is doing well with no primary care questions at this time. Patient discharged from [facility] Discharge date: 10/09/2023 Admitted for: abdominal pain, nausea, kidney stones Readmission Risk: n/a Value-Based Contract: ACO Contact: Contact made with patient: Yes Spoke to: SpouseMckenzie Validation: Validated the person spoken to is actively involved in the patient's care. The patient was identified by Name and Date of . I'd like to get an update on how you're doing since our last phone call. Is now a good time to talk? No. Bobbi Barrera RN November 04, 2023 1:58 PM documented in this encounterFisher[facility]08-[facility]-2024 NotePatient Outreach (AMBCMG) JUAN M RODRIGUEZ ([id number]) 1935 M [facility] Date Time Provider Department 11/04/23 BOBBI BARRERAG During your visit today, we recorded the following information about you: Bobbi Barrera RN 11/04/2023 1:59 PM Signed Transitional Care Management (TCM) Follow-Up Note PCP Update / Actionable Items N/A - No specialty updates needed Patient Source: [facility] ([facility]) Discharge Outreach summary _ Spouse answered, states in a restaurant at this time. Reports Juan M is doing well with no primary care questions at this time. Patient discharged from [facility] Discharge date: 10/09/2023 Admitted for: abdominal pain, nausea, kidney stones Readmission Risk: n/a Value-Based Contract: ACO Contact: Contact made with patient: Yes Spoke to: Spouse, Mckenzie Validation: Validated the person spoken to is actively involved in the patient's care. The patient was identified by Name and Date of . I'd like to get an update on how you're doing since our last phone call. Is now a good time to talk? No. Bobbi Barrera RN November 04, 2023 1:58 PM Allergies As of Date: 11/04/2023 Noted Allergy Reaction DILAUDID (HYDROMORPHONE (BULK)) 09/03/2018 1 - Mental Status Change LISINOPRIL 12/24/2014 14 - Other: See Comments Comments: angioedema MAGNESIUM OXIDE 11/10/2021 14 - Other: See Comments Comments: Loose stools, leg and foot pain PENICILLINS 12/16/2002 16 - Unknown Date Reviewed: 07/14/2023 Reviewed by: Taye Horan MD - Fully Assessed Prescriptions as of 11/04/2023 - omeprazole (PRILOSEC) 40 mg capsule Take 1 capsule by mouth daily before breakfast. 1/2 hr before meal. - blood sugar diagnostic (CONTOUR TEST STRIPS) test strip Test blood sugar(s) 4 times daily. Dx: Type 2 DM - Controlled E11.9 Insulin: Yes - glimepiride (AMARYL) 1 mg tablet Take 1 tablet by mouth two times a day. - insulin aspart, niacinamide, (FIASP FLEXTOUCH U-100 INSULIN) 100 unit/mL (3 mL) pen Inject 6 Units subcutaneously three times a day before meals. - amLODIPine (NORVASC) 5 mg tablet Take 1 tablet by mouth once daily. one tab daily - Lancets (MICROLET LANCET) 1 Each four times daily. Dx: Type 2 DM - Controlled E11.9 Insulin: Yes - fenofibrate (LOFIBRA) 200 mg capsule Take 1 capsule by mouth daily before breakfast. - lovastatin (MEVACOR) 20 mg tablet Take 1 tablet by mouth daily at bedtime. - metFORMIN (GLUCOPHAGE) 1,000 mg tablet Take 1 tablet by mouth two times a day with meals. - insulin glargine (BASAGLAR KWIKPEN U-100 INSULIN) 100 unit/mL (3 mL) Inject 25 Units subcutaneously daily at bedtime. - Insulin [place], Disposable, (SURE COMFORT PEN NEEDLE) 32 gauge x 5/32 1 Each four times daily. - Magnesium Glycinate 100 mg tab Take 1 tablet by mouth every other day. - Cholecalciferol, Vitamin D3, 50 mcg (2,000 unit) cap Take 1 capsule by mouth. - ferrous sulfate 325 mg (65 mg iron) tablet Take 325 mg by mouth daily with breakfast. - aspirin, enteric coated (ASPIRIN, ENTERIC COATED) 81 mg EC tablet Take 1 tablet by mouth once daily. 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 *09/03/2018 Dyslipidemia [E78.5] 09/03/2018 GERD without esophagitis [K21.9] 09/03/2018 Hypertensive chronic kidney disease with stage *09/03/2018 History of kidney stones [Z87.442] 09/03/2018 History of colonic polyps [Z86.010] 09/03/2018 Smoker [F17.200] 09/03/2018 Benign prostatic hyperplasia with lower urinary*09/03/2018 Medicare annual wellness visit, subsequent [Z00*09/03/2018 Hypomagnesemia [E83.42] 01/23/2019 Diabetic eye exam (HCC) [Z01.00, E11.9] 05/07/2019 Stage 3b chronic kidney disease (HCC) [N18.32] 10/01/2019 Anemia of chronic disease [D63.8] 11/03/2019 Essential hypertension [I10] 09/03/2018 Medication management [Z79.899] 08/28/2020 History of COVID-19 [Z86.16] 03/23/[address] [Z78.9] 07/07/2021 Advance directive discussed with patient [Z71.8*07/07/2021 Diverticulosis [K57.90] 07/08/2022 Neck pain [M54.2] 07/08/2022 Diarrhea [R19.7] 07/08/2022 Nausea [R11.0] 07/08/2022 Encounter Status:Closed by BOBBI BARRERA on 11/04/23[facility]08-15-2024 Telephone encounter Note* Telephone Encounter - Judi Rice PA-C - 11/02/2023 12:34 PM EDT We discussed this yesterday. Patient is aware that he is still a patient of Dr. Salazar. [facility]08-15-2024 Miscellaneous Notes* Telephone Encounter - Judi Rice PA-C - 11/02/2023 12:34 PM EDT We discussed this yesterday. Patient is aware that he is still a patient of Dr. Salazar. * Telephone Encounter - Madison Woodard RN - 11/02/2023 8:31 AM EDT Pt called in and wanted to switch his 01/12/[address] Horan to Judi BARR. Itried to tell them that they switch back and forth and that Dr Horan had plenty of open appt timesin December I could put him in. Pt states Dr Horan always cancels on him and he doesn't want to be put with him. He states he came in and talked with Judi BARR yesterday, not sure if she said she would let him see her. I tried to tell him that Judi does not take on her own patients andthat he would have to see Dr Horan at some point in time. Please call and advise. documented in this [facility] Telephone encounter Note * Telephone Encounter - Madison Woodard RN - 11/02/2023 8:31 AM EDT Pt called in and wanted to switch his 01/12/[address] Horan to Judi BARR. Itried to tell them that they switch back and forth and that Dr Horan had plenty of open appt timesin December I could put him in. Pt states Dr Horan always cancels on him and he doesn't want to be put with him. He states he came in and talked with Judi BARR yesterday, not sure if she said she would let him see her. I tried to tell him that Judi does not take on her own patients andthat he would have to see Dr Horan at some point in time. Please call and advise. [facility]08-08-2024 NoteHNO ID: [id number] Author: KAREN SEQUEIRA RN Service: ? Author Type: Registered Nurse Type: Progress Notes Filed: 10/26/2023 16:18 Note Text: Transitional Care Management (TCM) Follow-Up Note PCP Update / Actionable Items N/A - No specialty updates needed Patient Source: [id number] (OON) Discharge Outreach Summary: TCM Update Spoke with patient States he is doing very well No mention of any further new or worsening symptoms Denies any further needs or concerns. Advised to notify PCP for recurring, new/worsening symptoms. Verbalized understanding Patient discharged from [facility] Discharge date: 10/09/2023 Admitted for: abdominal pain, nausea, kidney stones Readmission Risk: n/a Value-Based Contract: ACO Contact: Contact made with patient: Yes Spoke to: Patient Validation: Validated the person spoken to is actively involved in the patient's care. The patient was identified by Name and Date of . I'd like to get an update on how you're doing since our last phone call. Is now a good time to talk? Yes Symptoms: Are you feeling about the same, better or worse since leaving the hospital? Better Weekly Outreach: 1st Outreach Medications: Do you have any questions about taking your medications, including which medications you should be on, or do you need refills on your medications? No Patient Questions / Concerns: Do you have any questions related to your discharge? No Appointment / TCM Follow-Up: Have you had a follow-up visit with your Primary Care Provider or Specialist since you were discharged? No Do you need any assistance with scheduling or changing your follow-up appointments? Patient declines appointment Education N/A Targets addressed / completed during outreach: N/A Outreach Outcome: Continue TCM Outreach for remainder of 30 days Care Management partners utilized: N/A Karen Sequeira RN October 26, 2023 4:15 [facility]08-08-2024 History of Present illness Narrative* Karen Sequeira RN - 10/26/2023 4:14 PM EDT Transitional Care Management (TCM) Follow-Up Note PCP Update / Actionable Items N/A - No specialty updates needed Patient Source: [facility] (OON) Discharge Outreach Summary: TCM Update Spoke with patient States he is doing very well No mention of any further new or worsening symptoms Denies any further needs or concerns. Advised to notify PCP for recurring, new/worsening symptoms. Verbalized understanding Patient discharged from [facility] Discharge date: 10/09/2023 Admitted for: abdominal pain, nausea, kidney stones Readmission Risk: n/a Value-Based Contract: ACO Contact: Contact made with patient: Yes Spoke to: Patient Validation: Validated the person spoken to is actively involved in the patient's care. The patient was identified by Name and Date of . I'd like to get an update on how you're doing since our last phone call. Is now a good time to talk? Yes Symptoms: Are you feeling about the same, better or worse since leaving the hospital? Better Weekly Outreach: 1st Outreach Medications: Do you have any questions about taking your medications, including which medications you should be on, or do you need refills on your medications? No Patient Questions / Concerns: Do you have any questions related to your discharge? No Appointment / TCM Follow-Up: Have you had a follow-up visit with your Primary Care Provider or Specialist since you were discharged? No Do you need any assistance with scheduling or changing your follow-up appointments? Patient declines appointment Education N/A Targets addressed / completed during outreach: N/A Outreach Outcome: Continue TCM Outreach for remainder of 30 days Care Management partners utilized: N/A Karen Sequeira RN October 26, 2023 4:15 PM documented in this encounter[facility]24 NoteHNO ID: [id number] Author: EVANGELISTA FISHER LPN Service: ? Author Type: LICENSED NURSE Type: Progress Notes Filed: 10/26/2023 14:12 Note Text: Scan on 10/26/2023 1:59 PM by Essie Del Rosario PA-C: [facility] History of Present illness Narrative* Evangelista Fisher LPN - 10/26/2023 2:08 PM EDT Scan on 10/26/2023 1:59 PM by Essie Del Rosario PA-C: Consultation - documented in this encounterFisher[facility]-2024 NotePatient Outreach (AMBCMG) JUAN M RODRIGUEZ ([id number]) 1935 M [facility] Date Time Provider Department 10/26/23 KAREN SEQUEIRA During your visit today, we recorded the following information about you: Karen Sequeira RN 10/26/2023 4:18 PM Signed Transitional Care Management (TCM) Follow-Up Note PCP Update / Actionable Items N/A - No specialty updates needed Patient Source: [facility] (OON) Discharge Outreach Summary: TCM Update Spoke with patient States he is doing very well No mention of any further new or worsening symptoms Denies any further needs or concerns. Advised to notify PCP for recurring, new/worsening symptoms. Verbalized understanding Patient discharged from [facility] Discharge date: 10/09/2023 Admitted for: abdominal pain, nausea, kidney stones Readmission Risk: n/a Value-Based Contract: ACO Contact: Contact made with patient: Yes Spoke to: Patient Validation: Validated the person spoken to is actively involved in the patient's care. The patient was identified by Name and Date of . I'd like to get an update on how you're doing since our last phone call. Is now a good time to talk? Yes Symptoms: Are you feeling about the same, better or worse since leaving the hospital? Better Weekly Outreach: 1st Outreach Medications: Do you have any questions about taking your medications, including which medications you should be on, or do you need refills on your medications? No Patient Questions / Concerns: Do you have any questions related to your discharge? No Appointment / TCM Follow-Up: Have you had a follow-up visit with your Primary Care Provider or Specialist since you were discharged? No Do you need any assistance with scheduling or changing your follow-up appointments? Patient declines appointment Education N/A Targets addressed / completed during outreach: N/A Outreach Outcome: Continue TCM Outreach for remainder of 30 days Care Management partners utilized: N/A Karen Sequeira RN October 26, 2023 4:15 PM Allergies As of Date: 10/26/2023 Noted Allergy Reaction DILAUDID (HYDROMORPHONE (BULK)) 09/03/2018 1 - Mental Status Change LISINOPRIL 12/24/2014 14 - Other: See Comments Comments: angioedema MAGNESIUM OXIDE 11/10/2021 14 - Other: See Comments Comments: Loose stools, leg and foot pain PENICILLINS 12/16/2002 16 - Unknown Date Reviewed: 07/14/2023 Reviewed by: Taye Horan MD - Fully Assessed Reason for Visit: Transition Of Care [4074] Cmt: TCM Follow Up Prescriptions as of 10/26/2023 - omeprazole (PRILOSEC) 40 mg capsule Take 1 capsule by mouth daily before breakfast. 1/2 hr before meal. - blood sugar diagnostic (CONTOUR TEST STRIPS) test strip Test blood sugar(s) 4 times daily. Dx: Type 2 DM - Controlled E11.9 Insulin: Yes - glimepiride (AMARYL) 1 mg tablet Take 1 tablet by mouth two times a day. - insulin aspart, niacinamide, (FIASP FLEXTOUCH U-100 INSULIN) 100 unit/mL (3 mL) pen Inject 6 Units subcutaneously three times a day before meals. - amLODIPine (NORVASC) 5 mg tablet Take 1 tablet by mouth once daily. one tab daily - Lancets (MICROLET LANCET) 1 Each four times daily. Dx: Type 2 DM - Controlled E11.9 Insulin: Yes - fenofibrate (LOFIBRA) 200 mg capsule Take 1 capsule by mouth daily before breakfast. - lovastatin (MEVACOR) 20 mg tablet Take 1 tablet by mouth daily at bedtime. - metFORMIN (GLUCOPHAGE) 1,000 mg tablet Take 1 tablet by mouth two times a day with meals. - insulin glargine (BASAGLAR KWIKPEN U-100 INSULIN) 100 unit/mL (3 mL) Inject 25 Units subcutaneously daily at bedtime. - Insulin [place], Disposable, (SURE COMFORT PEN NEEDLE) 32 gauge x 5/32 1 Each four times daily. - Magnesium Glycinate 100 mg tab Take 1 tablet by mouth every other day. - Cholecalciferol, Vitamin D3, 50 mcg (2,000 unit) cap Take 1 capsule by mouth. - ferrous sulfate 325 mg (65 mg iron) tablet Take 325 mg by mouth daily with breakfast. - aspirin, enteric coated (ASPIRIN, ENTERIC COATED) 81 mg EC tablet Take 1 tablet by mouth once daily. Problem List As Of Date 10/26/2023 Noted Resolved Type 2 diabetes mellitus with stage 3b chronic *09/03/2018 Dyslipidemia [E78.5] 09/03/2018 GERD without esophagitis [K21.9] 09/03/2018 Hypertensive chronic kidney disease with stage *09/03/2018 History of kidney stones [Z87.442] 09/03/2018 History of colonic polyps [Z86.010] 09/03/2018 Smoker [F17.200] 09/03/2018 Benign prostatic hyperplasia with lower urinary*09/03/2018 Medicare annual wellness visit, subsequent [Z00*09/03/2018 Hypomagnesemia [E83.42] 01/23/2019 Diabetic eye exam (HCC) [Z01.00, E11.9] 05/07/2019 Stage 3b chronic kidney disease (HCC) [N18.32] 10/01/2019 Anemia of chronic disease [D63.8] 11/03/2019 Essential hypertension [I10] 09/03/2018 Medication management [Z79.899] 08/28/2020 H (more content not included)...[facility]08-07-2024 NoteHNO ID: [id number] Author: MARCELINA GARCIA, RN Service: ? Author Type: Registered Nurse Type: Progress Notes Filed: 10/25/2023 12:17 Note Text: CDM Telephonic Outreach Provider Action/FYI Patient states: -recent admit [facility]/cardiac area, lots of tests/ no cardiac issues -main concern for going to hospital/treat kidney stones/he recalled s/s from last time it occurred -removed a few stones/stent placed -he had black thread (suture) and small piece of plastic come out his penis at home/pulled rest out carefully and called urology dr -dr advised he was going to remove sent that came out already next week/no bleeding/ok -he has appt w/ outside urologist tomorrow (He'll ask dr to send copy of medical records from [facility] to his PCP/Dr. Horan) -agrees to call back/may want to schedule follow up appt w/ pcp/per recommended protocol Contacted for: Routine Telephonic Outreach Contact made with patient: Yes Patient identified by name and date of . Discussed care with patient Are you experiencing any new or worsening symptoms you need to talk about today? No Disease Specific Do you check your blood pressure at home? No Do you have new or worsening shortness of breath with activity? No Do you feel like you are dehydrated for any reason, including not being able to eat or drink normally, or having less urine/much darker urine than normal for you? No Do you check your daily weight at home? No Based on sales solutions associate, the following disposition is advised: No symptoms or symptoms present, not severe. Routed to: No Action Needed [place] Education Provided this Outreach: No Marcelina Garcia RN October 25, 2023 12:15 [facility]08-07-2024 History of Present illness Narrative* Marcelina Garcia RN - 10/25/2023 9:37 AM EDT CDM Telephonic Outreach Provider Action/FYI Patient states: -recent admit [facility]/cardiac area, lots of tests/ no cardiac issues -main concern for going to hospital/treat kidney stones/he recalled s/s from last time it occurred -removed a few stones/stent placed -he had black thread (suture) and small piece of plastic come out his penis at home/pulled rest outcarefully and called urology dr - advised he was going to remove sent that came out already next week/no bleeding/ok -he has appt w/ outside urologist tomorrow (He'll ask dr to send copy of medical records from [facility] to his PCP/Dr. Horan) -agrees to call back/may want to schedule follow up appt w/ pcp/per recommended protocol Contacted for: Routine Telephonic Outreach Contact made with patient: Yes Patient identified by name and date of . Discussed care with patient Are you experiencing any new or worsening symptoms you need to talk about today? No Disease Specific Do you check your blood pressure at home? No Do you have new or worsening shortness of breath with activity? No Do you feel like you are dehydrated for any reason, including not being able to eat or drink normally, or having less urine/much darker urine than normal for you? No Do you check your daily weight at home? No Based on sales solutions associate, the following disposition is advised: No symptoms or symptoms present, not severe. Routed to: No Action Needed [place] Education Provided this Outreach: No Marcelina Garcia RN October 25, 2023 12:15 PM documented in this encounter[facility] NotePatient Outreach (AM[facility]MG) JUDDKandiJUAN M SOW ([id number]) 1935 M [facility] Date Time Provider Department 10/25/23 MARCELINA GARCIA During your visit today, we recorded the following information about you: Marcelina Garcia RN 10/25/2023 12:17 PM Signed CDM Telephonic Outreach Provider Action/FYI Patient states: -recent admit [facility]/cardiac area, lots of tests/ no cardiac issues -main concern for going to hospital/treat kidney stones/he recalled s/s from last time it occurred -removed a few stones/stent placed -he had black thread (suture) and small piece of plastic come out his penis at home/pulled rest out carefully and called urology dr -dr advised he was going to remove sent that came out already next week/no bleeding/ok -he has appt w/ outside urologist tomorrow (He'll ask dr to send copy of medical records from [facility] to his PCP/Dr. Horan) -agrees to call back/may want to schedule follow up appt w/ pcp/per recommended protocol Contacted for: Routine Telephonic Outreach Contact made with patient: Yes Patient identified by name and date of . Discussed care with patient Are you experiencing any new or worsening symptoms you need to talk about today? No Disease Specific Do you check your blood pressure at home? No Do you have new or worsening shortness of breath with activity? No Do you feel like you are dehydrated for any reason, including not being able to eat or drink normally, or having less urine/much darker urine than normal for you? No Do you check your daily weight at home? No Based on sales solutions associate, the following disposition is advised: No symptoms or symptoms present, not severe. Routed to: No Action Needed [place] Education Provided this Outreach: No Marcelina Garcia RN October 25, 2023 12:15 PM Allergies As of Date: 10/25/2023 Noted Allergy Reaction DILAUDID (HYDROMORPHONE (BULK)) 09/03/2018 1 - Mental Status Change LISINOPRIL 12/24/2014 14 - Other: See Comments Comments: angioedema MAGNESIUM OXIDE 11/10/2021 14 - Other: See Comments Comments: Loose stools, leg and foot pain PENICILLINS 12/16/2002 16 - Unknown Date Reviewed: 07/14/2023 Reviewed by: Taye Horan MD - Fully Assessed Reason for Visit: Community Monitoring Outreach [Other] Cmt: CDM Outreach Telephonic Outreach Prescriptions as of 11/02/2023 - omeprazole (PRILOSEC) 40 mg capsule Take 1 capsule by mouth daily before breakfast. 1/2 hr before meal. - blood sugar diagnostic (CONTOUR TEST STRIPS) test strip Test blood sugar(s) 4 times daily. Dx: Type 2 DM - Controlled E11.9 Insulin: Yes - glimepiride (AMARYL) 1 mg tablet Take 1 tablet by mouth two times a day. - insulin aspart, niacinamide, (FIASP FLEXTOUCH U-100 INSULIN) 100 unit/mL (3 mL) pen Inject 6 Units subcutaneously three times a day before meals. - amLODIPine (NORVASC) 5 mg tablet Take 1 tablet by mouth once daily. one tab daily - Lancets (MICROLET LANCET) 1 Each four times daily. Dx: Type 2 DM - Controlled E11.9 Insulin: Yes - fenofibrate (LOFIBRA) 200 mg capsule Take 1 capsule by mouth daily before breakfast. - lovastatin (MEVACOR) 20 mg tablet Take 1 tablet by mouth daily at bedtime. - metFORMIN (GLUCOPHAGE) 1,000 mg tablet Take 1 tablet by mouth two times a day with meals. - insulin glargine (BASAGLAR KWIKPEN U-100 INSULIN) 100 unit/mL (3 mL) Inject 25 Units subcutaneously daily at bedtime. - Insulin [place], Disposable, (SURE COMFORT PEN NEEDLE) 32 gauge x 5/32 1 Each four times daily. - Magnesium Glycinate 100 mg tab Take 1 tablet by mouth every other day. - Cholecalciferol, Vitamin D3, 50 mcg (2,000 unit) cap Take 1 capsule by mouth. - ferrous sulfate 325 mg (65 mg iron) tablet Take 325 mg by mouth daily with breakfast. - aspirin, enteric coated (ASPIRIN, ENTERIC COATED) 81 mg EC tablet Take 1 tablet by mouth once daily. 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 *09/03/2018 Dyslipidemia [E78.5] 09/03/2018 GERD without esophagitis [K21.9] 09/03/2018 Hypertensive chronic kidney disease with stage *09/03/2018 History of kidney stones [Z87.442] 09/03/2018 History of colonic polyps [Z86.010] 09/03/2018 Smoker [F17.200] 09/03/2018 Benign prostatic hyperplasia with lower urinary*09/03/2018 Medicare annual wellness visit, subsequent [Z00*09/03/2018 Hypomagnesemia [E83.42] 01/23/2019 Diabetic eye exam (HCC) [Z01.00, E11.9] 05/07/2019 Stage 3b chronic kidney disease (HCC) [N18.32] 10/01/2019 Anemia of chronic disease [D63.8] 11/03/2019 Essential hypertension [I10] 09/03/2018 Medication management [Z79.899] 08/28/2020 History of COVID-19 [Z86.16] 03/23/[address] [Z78.9] 07/07/2021 Advance directive discussed with patient [Z71.8*07/07/2021 Diverticulosis [K57.90] 07/08/2022 Neck pain [M5 (more content not included)...[facility]08-06-2024 NoteHNO ID: [id number] Author: MARCELINA GARCIA RN Service: ? Author Type: Registered Nurse Type: Progress Notes Filed: 10/24/2023 14:25 Note Text: [facility] Telephonic Outreach Provider Action/FYI Contacted for: Routine Telephonic Outreach Contact made with patient: No, left message. Marcelina Garcia RN October 24, 2023 2:[facility] History of Present illness Narrative* Marcelina Garcia RN - 10/24/2023 11:25 AM EDT [facility] Telephonic Outreach Provider Action/FYI Contacted for: Routine Telephonic Outreach Contact made with patient: No, left message. Marcelina Garcia RN October 24, 2023 2:24 PM documented in this encounterFisher[facility]-2024 NoteHNO ID: [id number] Author: MARCELINA GARCIA RN Service: ? Author Type: Registered Nurse Type: Progress Notes Filed: 10/24/2023 11:24 Note Text: CDM Telephonic Outreach Provider Action/FYI Spoke w/ Mckenzie/not good time to talk. Call back afternoon. Contacted for: Routine Telephonic Outreach Contact made with patient: Yes Patient identified by name and date of . Discussed care with spouse Are you experiencing any new or worsening symptoms you need to talk about today? No Disease Specific Do you check your blood pressure at home? No Do you have new or worsening shortness of breath with activity? No Do you have new or worsening cough? No Do you have new or worsening wheezing? No Do you need to use your rescue (Albuterol) inhaler or nebulizer more often than normal? No Based on sales solutions associate, the following disposition is advised: No symptoms or symptoms present, not severe. Routed to: No Action Needed [place] Education Provided this Outreach: No Marcelina Garcia RN October 24, 2023 11:24 [facility]08-06-2024 History of Present illness Narrative* Marcelina Garcia RN - 10/24/2023 11:22 AM EDT [facility] Telephonic Outreach Provider Lili/KATIE Spoke w/ Mckenzie/not good time to talk. Call back afternoon. Contacted for: Routine Telephonic Outreach Contact made with patient: Yes Patient identified by name and date of . Discussed care with spouse Are you experiencing any new or worsening symptoms you need to talk about today? No Disease Specific Do you check your blood pressure at home? No Do you have new or worsening shortness of breath with activity? No Do you have new or worsening cough? No Do you have new or worsening wheezing? No Do you need to use your rescue (Albuterol) inhaler or nebulizer more often than normal? No Based on sales solutions associate, the following disposition is advised: No symptoms or symptoms present, not severe. Routed to: No Action Needed [place] Education Provided this Outreach: No Marcelina Garcia RN October 24, 2023 11:24 AM [facility] NotePatient Outreach ([facility]) JENNIFERJUAN M ([id number]) 1935 M [facility] Date Time Provider Department 10/24/23 MARCELINA GARCIA [facility] During your visit today, we recorded the following information about you: Marcelina Garcia RN 10/24/2023 11:24 AM Signed [facility] Telephonic Outreach Provider Action/FYI Spoke w/ Mckenzie/not good time to talk. Call back afternoon. Contacted for: Routine Telephonic Outreach Contact made with patient: Yes Patient identified by name and date of . Discussed care with spouse Are you experiencing any new or worsening symptoms you need to talk about today? No Disease Specific Do you check your blood pressure at home? No Do you have new or worsening shortness of breath with activity? No Do you have new or worsening cough? No Do you have new or worsening wheezing? No Do you need to use your rescue (Albuterol) inhaler or nebulizer more often than normal? No Based on sales solutions associate, the following disposition is advised: No symptoms or symptoms present, not severe. Routed to: No Action Needed [place] Education Provided this Outreach: No Marcelina Garcia RN October 24, 2023 11:24 AM Allergies As of Date: 10/24/2023 Noted Allergy Reaction DILAUDID (HYDROMORPHONE (BULK)) 09/03/2018 1 - Mental Status Change LISINOPRIL 12/24/2014 14 - Other: See Comments Comments: angioedema MAGNESIUM OXIDE 11/10/2021 14 - Other: See Comments Comments: Loose stools, leg and foot pain PENICILLINS 12/16/2002 16 - Unknown Date Reviewed: 07/14/2023 Reviewed by: Taye Horan MD - Fully Assessed Reason for Visit: Community Monitoring Outreach [Other] Cmt: [facility] Telephonic Outreach Prescriptions as of 10/24/2023 - omeprazole (PRILOSEC) 40 mg capsule Take 1 capsule by mouth daily before breakfast. 1/2 hr before meal. - blood sugar diagnostic (CONTOUR TEST STRIPS) test strip Test blood sugar(s) 4 times daily. Dx: Type 2 DM - Controlled E11.9 Insulin: Yes - glimepiride (AMARYL) 1 mg tablet Take 1 tablet by mouth two times a day. - insulin aspart, niacinamide, (FIASP FLEXTOUCH U-100 INSULIN) 100 unit/mL (3 mL) pen Inject 6 Units subcutaneously three times a day before meals. - amLODIPine (NORVASC) 5 mg tablet Take 1 tablet by mouth once daily. one tab daily - Lancets (MICROLET LANCET) 1 Each four times daily. Dx: Type 2 DM - Controlled E11.9 Insulin: Yes - fenofibrate (LOFIBRA) 200 mg capsule Take 1 capsule by mouth daily before breakfast. - lovastatin (MEVACOR) 20 mg tablet Take 1 tablet by mouth daily at bedtime. - metFORMIN (GLUCOPHAGE) 1,000 mg tablet Take 1 tablet by mouth two times a day with meals. - insulin glargine (BASAGLAR KWIKPEN U-100 INSULIN) 100 unit/mL (3 mL) Inject 25 Units subcutaneously daily at bedtime. - Insulin [place], Disposable, (SURE COMFORT PEN NEEDLE) 32 gauge x 5/32 1 Each four times daily. - Magnesium Glycinate 100 mg tab Take 1 tablet by mouth every other day. - Cholecalciferol, Vitamin D3, 50 mcg (2,000 unit) cap Take 1 capsule by mouth. - ferrous sulfate 325 mg (65 mg iron) tablet Take 325 mg by mouth daily with breakfast. - aspirin, enteric coated (ASPIRIN, ENTERIC COATED) 81 mg EC tablet Take 1 tablet by mouth once daily. 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 *09/03/2018 Dyslipidemia [E78.5] 09/03/2018 GERD without esophagitis [K21.9] 09/03/2018 Hypertensive chronic kidney disease with stage *09/03/2018 History of kidney stones [Z87.442] 09/03/2018 History of colonic polyps [Z86.010] 09/03/2018 Smoker [F17.200] 09/03/2018 Benign prostatic hyperplasia with lower urinary*09/03/2018 Medicare annual wellness visit, subsequent [Z00*09/03/2018 Hypomagnesemia [E83.42] 01/23/2019 Diabetic eye exam (HCC) [Z01.00, E11.9] 05/07/2019 Stage 3b chronic kidney disease (HCC) [N18.32] 10/01/2019 Anemia of chronic disease [D63.8] 11/03/2019 Essential hypertension [I10] 09/03/2018 Medication management [Z79.899] 08/28/2020 History of COVID-19 [Z86.16] 03/23/[address] [Z78.9] 07/07/2021 Advance directive discussed with patient [Z71.8*07/07/2021 Diverticulosis [K57.90] 07/08/2022 Neck pain [M54.2] 07/08/2022 Diarrhea [R19.7] 07/08/2022 Nausea [R11.0] 07/08/2022 Encounter Status:Closed by MARCELINA GARCIA on 10/24/23[facility] 10-24-2023 NotePatient Outreach ([facility]) JUAN M RODRIGUEZ ([id number]) 1935 [facility] Date Time Provider Department 10/24/23 MARCELINA GARCIA [facility] During your visit today, we recorded the following information about you: Marcelina Garcia RN 10/24/2023 2:25 PM Signed [facility] Telephonic Outreach Provider Action/FYI Contacted for: Routine Telephonic Outreach Contact made with patient: No, left message. Marcelina Garcia RN October 24, 2023 2:24 PM Allergies As of Date: 10/24/2023 Noted Allergy Reaction DILAUDID (HYDROMORPHONE (BULK)) 09/03/2018 1 - Mental Status Change LISINOPRIL 12/24/2014 14 - Other: See Comments Comments: angioedema MAGNESIUM OXIDE 11/10/2021 14 - Other: See Comments Comments: Loose stools, leg and foot pain PENICILLINS 12/16/2002 16 - Unknown Date Reviewed: 07/14/2023 Reviewed by: Taye Horan MD - Fully Assessed Reason for Visit: Community Monitoring Outreach [Other] Cmt: [facility] Telephonic Outreach Prescriptions as of 10/24/2023 - omeprazole (PRILOSEC) 40 mg capsule Take 1 capsule by mouth daily before breakfast. 1/2 hr before meal. - blood sugar diagnostic (CONTOUR TEST STRIPS) test strip Test blood sugar(s) 4 times daily. Dx: Type 2 DM - Controlled E11.9 Insulin: Yes - glimepiride (AMARYL) 1 mg tablet Take 1 tablet by mouth two times a day. - insulin aspart, niacinamide, (FIASP FLEXTOUCH U-100 INSULIN) 100 unit/mL (3 mL) pen Inject 6 Units subcutaneously three times a day before meals. - amLODIPine (NORVASC) 5 mg tablet Take 1 tablet by mouth once daily. one tab daily - Lancets (MICROLET LANCET) 1 Each four times daily. Dx: Type 2 DM - Controlled E11.9 Insulin: Yes - fenofibrate (LOFIBRA) 200 mg capsule Take 1 capsule by mouth daily before breakfast. - lovastatin (MEVACOR) 20 mg tablet Take 1 tablet by mouth daily at bedtime. - metFORMIN (GLUCOPHAGE) 1,000 mg tablet Take 1 tablet by mouth two times a day with meals. - insulin glargine (BASAGLAR KWIKPEN U-100 INSULIN) 100 unit/mL (3 mL) Inject 25 Units subcutaneously daily at bedtime. - Insulin [place], Disposable, (SURE COMFORT PEN NEEDLE) 32 gauge x 5/32 1 Each four times daily. - Magnesium Glycinate 100 mg tab Take 1 tablet by mouth every other day. - Cholecalciferol, Vitamin D3, 50 mcg (2,000 unit) cap Take 1 capsule by mouth. - ferrous sulfate 325 mg (65 mg iron) tablet Take 325 mg by mouth daily with breakfast. - aspirin, enteric coated (ASPIRIN, ENTERIC COATED) 81 mg EC tablet Take 1 tablet by mouth once daily. 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 *09/03/2018 Dyslipidemia [E78.5] 09/03/2018 GERD without esophagitis [K21.9] 09/03/2018 Hypertensive chronic kidney disease with stage *09/03/2018 History of kidney stones [Z87.442] 09/03/2018 History of colonic polyps [Z86.010] 09/03/2018 Smoker [F17.200] 09/03/2018 Benign prostatic hyperplasia with lower urinary*09/03/2018 Medicare annual wellness visit, subsequent [Z00*09/03/2018 Hypomagnesemia [E83.42] 01/23/2019 Diabetic eye exam (HCC) [Z01.00, E11.9] 05/07/2019 Stage 3b chronic kidney disease (HCC) [N18.32] 10/01/2019 Anemia of chronic disease [D63.8] 11/03/2019 Essential hypertension [I10] 09/03/2018 Medication management [Z79.899] 08/28/2020 History of COVID-19 [Z86.16] 03/23/[address] [Z78.9] 07/07/2021 Advance directive discussed with patient [Z71.8*07/07/2021 Diverticulosis [K57.90] 07/08/2022 Neck pain [M54.2] 07/08/2022 Diarrhea [R19.7] 07/08/2022 Nausea [R11.0] 07/08/2022 Encounter Status:Closed by MARCELINA GARCIA on 10/24/23[facility] 10-20-2023 NoteHNO ID: [id number] Author: SHARIF PAYAN MA Service: ? Author Type: Machine Inspector Type: Progress Notes Filed: 10/20/2023 12:39 Note Text: Scan on 10/20/2023 7:41 AM by Essie Del Rosario PA-C: Consultation - Scan on 10/20/2023 7:41 AM by Essie Del Rosario PA-C: Consultation - Scan on 10/20/2023 9:29 AM by Essie Del Rosario PA-C: Sterling Payan [facility]08-02-2024 History of Present illness Narrative* Sharif Payan MA - 10/20/2023 12:39 PM EDT Scan on 10/20/2023 7:41 AM by ProviderEsise PA-C: Consultation - Scan on 10/20/2023 7:41 AM by ProviderEssie PA-C: Consultation - Scan on 10/20/2023 9:29 AM by ProviderEssie PA-C: Chemistry Sharif Payan MA documented in this encounter[facility] Medical Records Department [address] [place] [address] History Physical Exam 10/20/23 0733 MR#: [id number] Acct: [id number] Name: JUAN M RODRIGUEZ Rep #: [id number] : 1935 87 From: Adal Torres MD PCP: Dr. Taye Horan MD Status:[facility] Location: [place] [address] HPI - General General Date of Service: 10/20/23 Chief Complaint: Right ureteral calculi status post stent HPI Narrative JUAN M RODRIGUEZ, is a 87 M who presents for treatment of ureteral stone with laser lithotripsy and stent placement in the right side [facility] Medical History (Updated 10/17/23 @ 14:14 by Denice Stein) Wears glasses Cancer Smoker Insulin dependent diabetes mellitus Arthritis Prostate disease History of renal disease Diverticulosis First degree heart block COVID-19 Sepsis Hypomagnesemia History of colon polyps CKD (chronic kidney disease) Benign prostatic hyperplasia Anemia Acute pancreatitis Kidney stones Dyslipidemia Nausea Diarrhea GERD (gastroesophageal reflux disease) High cholesterol HTN (hypertension) Diabetes Home Medications ???Medication ???Instructions ???Recorded ???Last Taken ???Type aspirin 81 mg tablet,delayed 81 mg PO DAILY 05/17/20 10/10/23 History release ferrous sulfate 325 mg (65 mg 325 mg PO DAILY@0800 05/17/20 Unknown History iron) tablet glimepiride 1 mg tablet 1 mg PO BID 05/17/20 Unknown History insulin aspart U-100 100 unit/mL 6 unit SQ TID 05/17/20 Unknown History subcutaneous solution insulin glargine 100 unit/mL (3 30 unit SQ QHS 05/17/20 Unknown History mL) subcutaneous pen lovastatin 20 mg tablet 20 mg PO DAILY 05/17/20 Unknown History metformin 1,000 mg tablet 1,000 mg PO BID 05/17/20 Unknown History omeprazole 20 mg tablet,delayed 40 mg PO DAILY 05/17/20 Unknown History release amlodipine 5 mg tablet 5 mg PO DAILY 06/17/21 Unknown History fenofibrate micronized 200 mg 200 mg PO DAILY 10/17/23 Unknown History capsule Allergy/AdvReac Type Severity Reaction Status Date / Time lisinopril Allergy Angioedema Verified 10/20/23 06:49 Penicillins Allergy Rash Verified 10/20/23 06:49 hydromorphone (From Dilaudid) AdvReac Severe Other Verified 10/20/23 06:49 Family History Father Hypertension TIA (transient ischemic attack) Sister CAD (coronary artery disease) Diabetes COPD (chronic obstructive pulmonary disease) Lung cancer Surgical History (Updated 10/17/23 @ 14:14 by Denice Stein) History of transurethral resection of prostate History of urethral stent ( 10/09/23) H/O inguinal hernia repair History of cholecystectomy Social History household members: spouse housing: house Smoking Status: Current every day smoker tobacco type: cigars alcohol intake: current alcohol intake frequency: 0-2 drinks per day substance use type: does not use Vital Signs Vital Signs Vital Signs: 10/20/23 07:09 10/20/23 07:09 Temperature 98 F Temperature Source Temporal Pulse Rate 69 Respiratory Rate 17 Respiratory Pattern Normal Blood Pressure 123/69 H Blood Pressure Mean 87 Blood Pressure Source Monitor Blood Pressure Position Semi-Fowlers Pulse Ox 93 Oxygen Delivery Method Room Air Weight Weight: 101.2 kg Body Mass Index (BMI) 28.6 Assessment Plan Assessment/Plan (1) Ureterolithiasis: PLAN: Plan to laser the stone on the right side and placed a stent 10/20/23 0733 Cosigner Signature (if applicable): CC: Dr. Taye Horan MD; Dr. Adal Torres MD [facility]07-30-2024 NoteHNO ID: [id number] Author: BOBBI BARRERA RN Service: ? Author Type: Registered Nurse Type: Progress Notes Filed: 10/17/2023 11:48 Note Text: Transitional Care Management (TCM) Follow-Up Note PCP Update / Actionable Items Spoke with spouse Norma briefly, she states Juan M is sleeping , has been doing well since discharge and no issues voiding with the stent. Is awaiting scheduling with [facility] for followup. 10/18 [facility] med f/u Patient Source: [place] ([facility]ON) Discharge Pt discharged from [facility] on 10/09/23. Admitted for: abdominal pain , nausea - kidney stones Readmission Risk: n/a SHRADDHA Score: n/a Value-Based Contract: ACO Contact: Contact made with patient: Yes Spoke to: SpouseMckenzie Validation: Validated the person spoken to is actively involved in the patient's care. The patient was identified by Name and Date of . I'd like to get an update on how you're doing since our last phone call. Is now a good time to talk? Yes Symptoms: Are you feeling about the same, better or worse since leaving the hospital? Better Weekly Outreach: 2nd Outreach Medications: Do you have any questions about taking your medications, including which medications you should be on, or do you need refills on your medications? No Patient Questions / Concerns: Do you have any questions related to your discharge instructions? No Equipment: Do you have all the necessary equipment and supplies needed at your home? No Patient has questions or needs related to the discharge instructions and/or having the necessary equipment and supplies at home. Routed to PCP and indicated in FYI box. Appointment / TCM Follow-Up: Have you had a follow-up visit with your Primary Care Provider or Specialist since you were discharged? Scheduled 10/18 Do you need any assistance with scheduling or changing your follow-up appointments? Patient already has an appointment scheduled SDOH: Has Food and Housing been addressed in Social Determinants in the past 3 months? Yes Education: N/A Targets addressed / completed during outreach: Patient has TCM appointment with PC within 14 days Outreach Outcome: Continue TCM Outreach for remainder of 30 days Care Management partners utilized: N/A Bobbi Barrera RN October 17, 2023 11:45 [facility]07-30-2024 History of Present illness Narrative* Bobbi Barrera RN - 10/17/2023 11:43 AM EDT Transitional Care Management (TCM) Follow-Up Note PCP Update / Actionable Items Spoke with spouse Norma briefly, she states Juan M is sleeping , has been doing well since discharge and no issues voiding with the stent. Is awaiting scheduling with [facility] for followup. 10/18 [facility] med f/u Patient Source: [place] (OON) Discharge Pt discharged from [facility] on 10/09/23. Admitted for: abdominal pain , nausea - kidney stones Readmission Risk: n/a SHRADDHA Score: n/a Value-Based Contract: ACO Contact: Contact made with patient: Yes Spoke to: Spouse, Mckenzie Validation: Validated the person spoken to is actively involved in the patient's care. The patient was identified by Name and Date of . I'd like to get an update on how you're doing since our last phone call. Is now a good time to talk? Yes Symptoms: Are you feeling about the same, better or worse since leaving the hospital? Better Weekly Outreach: 2nd Outreach Medications: Do you have any questions about taking your medications, including which medications you should be on, or do you need refills on your medications? No Patient Questions / Concerns: Do you have any questions related to your discharge instructions? No Equipment: Do you have all the necessary equipment and supplies needed at your home? No Patient has questions or needs related to the discharge instructions and/or having the necessary equipment and supplies at home. Routed to PCP and indicated in FYI box. Appointment / TCM Follow-Up: Have you had a follow-up visit with your Primary Care Provider or Specialist since you were discharged? Scheduled 10/18 Do you need any assistance with scheduling or changing your follow-up appointments? Patient alreadyhas an appointment scheduled SDOH: Has Food and Housing been addressed in Social Determinants in the past 3 months? Yes Education: N/A Targets addressed / completed during outreach: Patient has TCM appointment with PC within 14 days Outreach Outcome: Continue TCM Outreach for remainder of 30 days Care Management partners utilized: N/A Bobbi Barrera RN October 17, 2023 11:45 AM documented in this encounter[facility] NotePatient Outreach ([facility]) JUAN M RODRIGUEZ ([id number]) 1935 M [facility] Date Time Provider Department 10/17/23 BOBBI BARRERA During your visit today, we recorded the following information about you: Bobbi Barrera, RN 10/17/2023 11:48 AM Signed Transitional Care Management (TCM) Follow-Up Note PCP Update / Actionable Items Spoke with spouse Norma briefly, she states Juan M is sleeping , has been doing well since discharge and no issues voiding with the stent. Is awaiting scheduling with [facility] for followup. 10/18 [facility] med f/u Patient Source: [place] (OON) Discharge Pt discharged from [facility] on 10/09/23. Admitted for: abdominal pain , nausea - kidney stones Readmission Risk: n/a SHRADDHA Score: n/a Value-Based Contract: ACO Contact: Contact made with patient: Yes Spoke to: SpouseMckenzie Validation: Validated the person spoken to is actively involved in the patient's care. The patient was identified by Name and Date of . I'd like to get an update on how you're doing since our last phone call. Is now a good time to talk? Yes Symptoms: Are you feeling about the same, better or worse since leaving the hospital? Better Weekly Outreach: 2nd Outreach Medications: Do you have any questions about taking your medications, including which medications you should be on, or do you need refills on your medications? No Patient Questions / Concerns: Do you have any questions related to your discharge instructions? No Equipment: Do you have all the necessary equipment and supplies needed at your home? No Patient has questions or needs related to the discharge instructions and/or having the necessary equipment and supplies at home. Routed to PCP and indicated in FYI box. Appointment / TCM Follow-Up: Have you had a follow-up visit with your Primary Care Provider or Specialist since you were discharged? Scheduled 10/18 Do you need any assistance with scheduling or changing your follow-up appointments? Patient already has an appointment scheduled SDOH: Has Food and Housing been addressed in Social Determinants in the past 3 months? Yes Education: N/A Targets addressed / completed during outreach: Patient has TCM appointment with PC within 14 days Outreach Outcome: Continue TCM Outreach for remainder of 30 days Care Management partners utilized: N/A Bobbi Barrera RN October 17, 2023 11:45 AM Allergies As of Date: 10/17/2023 Noted Allergy Reaction DILAUDID (HYDROMORPHONE (BULK)) 09/03/2018 1 - Mental Status Change LISINOPRIL 12/24/2014 14 - Other: See Comments Comments: angioedema MAGNESIUM OXIDE 11/10/2021 14 - Other: See Comments Comments: Loose stools, leg and foot pain PENICILLINS 12/16/2002 16 - Unknown Date Reviewed: 07/14/2023 Reviewed by: Taye Horan MD - Fully Assessed Reason for Visit: Transition Of Care [4074] Cmt: TCM / OON follow up Prescriptions as of 10/17/2023 - omeprazole (PRILOSEC) 40 mg capsule Take 1 capsule by mouth daily before breakfast. 1/2 hr before meal. - blood sugar diagnostic (CONTOUR TEST STRIPS) test strip Test blood sugar(s) 4 times daily. Dx: Type 2 DM - Controlled E11.9 Insulin: Yes - glimepiride (AMARYL) 1 mg tablet Take 1 tablet by mouth two times a day. - insulin aspart, niacinamide, (FIASP FLEXTOUCH U-100 INSULIN) 100 unit/mL (3 mL) pen Inject 6 Units subcutaneously three times a day before meals. - amLODIPine (NORVASC) 5 mg tablet Take 1 tablet by mouth once daily. one tab daily - Lancets (MICROLET LANCET) 1 Each four times daily. Dx: Type 2 DM - Controlled E11.9 Insulin: Yes - fenofibrate (LOFIBRA) 200 mg capsule Take 1 capsule by mouth daily before breakfast. - lovastatin (MEVACOR) 20 mg tablet Take 1 tablet by mouth daily at bedtime. - metFORMIN (GLUCOPHAGE) 1,000 mg tablet Take 1 tablet by mouth two times a day with meals. - insulin glargine (BASAGLAR KWIKPEN U-100 INSULIN) 100 unit/mL (3 mL) Inject 25 Units subcutaneously daily at bedtime. - Insulin [place], Disposable, (SURE COMFORT PEN NEEDLE) 32 gauge x 5/32 1 Each four times daily. - Magnesium Glycinate 100 mg tab Take 1 tablet by mouth every other day. - Cholecalciferol, Vitamin D3, 50 mcg (2,000 unit) cap Take 1 capsule by mouth. - ferrous sulfate 325 mg (65 mg iron) tablet Take 325 mg by mouth daily with breakfast. - aspirin, enteric coated (ASPIRIN, ENTERIC COATED) 81 mg EC tablet Take 1 tablet by mouth once daily. 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 Author Type: Machine Inspector Type: Progress Notes Filed: 10/13/2023 11:03 Note Text: Scan on 10/09/2023 4:44 PM by Essie Del Rosario PA-C: Scan on 10/09/2023 5:46 PM by Essie Del Rosario PA-C: Discharge Summary Patient was seen in [facility] ER on 10/07/2023 for kidney stone and was D/C on 10/09/2023. During hospital stay patient had hypoxia. Patient scheduled for TCM on 10/19/2023. Sharif Payan [facility]07-26-2024 History of Present illness Narrative* Sharif Payan MA - 10/13/2023 10:58 AM EDT Scan on 10/09/2023 4:44 PM by Essie Del Rosario PA-C: Scan on 10/09/2023 5:46 PM by Provider, ROWDY Fountain: Discharge Summary Patient was seen in [facility] ER on 10/07/2023 for kidney stone and was D/C on 10/09/2023. During hospital stay patient had hypoxia. Patient scheduled for TCM on 10/19/2023. Sharif Payan MA documented in this encounter[facility]24 NoteHNO ID: [id number] Author: ADINA MASCORRO MA Service: ? Author Type: Machine Inspector Type: Progress Notes Filed: 10/10/2023 11:13 Note Text: POPULATION HEALTH NAVIGATION OUTREACH Action/FYI TCM Hospital Discharge Follow up. TCM Eligible until 10/23/23 Spoke with patient; scheduled appointment Reason for Outreach Community Monitoring/Network Navigator Pools AND Phone Line: TCM Patient Contacted: Spoke to patient/parent/or legal guardian Patient identified by name and : Yes Community Monitoring/Network Navigator Pools AND Phone Line actions taken: Patient scheduled: Hospital Follow-up 10/19/2023 in [facility] with JUDI RICE - [facility] Follow Up (TCM thru 10/22) 10/23/2023 in [facility] with RACHID MANE - 1 yr follow up [facility] - 6 month follow up Navigation Signature: Adina Mascorro MA October 10, 2023 11:07 [facility]07-23-2024 History of Present illness Narrative* Adina Mascorro MA - 10/10/2023 11:07 AM EDT POPULATION HEALTH NAVIGATION OUTREACH Action/FYI TCM Hospital Discharge Follow up. TCM Eligible until 10/23/23 Spoke with patient; scheduled appointment Reason for Outreach Community Monitoring/Network Navigator Pools & Phone Line: TCM Patient Contacted: Spoke to patient/parent/or legal guardian Patient identified by name and : Yes Community Monitoring/Network Navigator Pools & Phone Line actions taken: Patient scheduled: Hospital Follow-up 10/19/2023 in [facility] with JUDI RICE - [facility] Follow Up (TCM thru 10/22) 10/23/2023 in [facility] with RACHID MANE - 1 yr follow up 01/12/2024 in [facility] with TAYE HORAN - 6 month follow up Navigation Signature: Adina Mascorro MA October 10, 2023 11:07 AM * Bobbi Barrera RN - 10/10/2023 10:44 AM EDT TRANSITIONAL CARE MANAGEMENT ([facility]) COMMUNITY MONITORING PROGRAM Provider Action/FYI: Pt reports he is doing well this Am. Denies SOB, fever, chills, cough. States he did have some hematuria after cystoscopy with stent placement yesterday that has completely resolved this AM. States voiding without issues. Pt encouraged to maintain fluid intake , will schedule f/u with urology , Dr. Torres . States blood glucose was 265 this AM and will continue to watch closely , states restarting insulins and Metformin . Navigation Team Please assist with scheduling TCM Hospital Discharge Follow up. TCM Eligible until 10/23/23 Thank you SUMMARY: Discharge Network Status: Gwk-xi-Apzcfpi (OON) Discharge Pt discharged from [facility] on 10/09/23. Admitted for: abdominal pain , nausea - kidney stones TCM Home Visit Referral Source of Stratification: TCM HUB Hospital Admission Status: Discharged Readmission Risk Score: N/A Patient's zip code: N/A Is zip code within program service area: No Patient meets program referral criteria: No Patient does not qualify for High Risk TCM Home Visit program due to: Readmission Risk Score does not meet criteria Disposition: Patient does not qualify for HRTIC, will provide TCM outreach follow-up for 30-days Bobbi Barrera RN October 10, 2023 10:44 AM Contact made with patient: Yes Hi my name is Bobbi Barrera RN and I am calling from the [facility] on behalf of yourP, Taye Horan MD I understand you were recently in the hospital so I am calling to check in with you to ensure you are feeling well now that you're home. May I ask you a few questions related to your hospital stay and well-being? Yes Contact with patient post discharge, spoke to patient. Patient identified by name and . Do you feel your health is BETTER, WORSE, or the SAME since leaving the hospital? Better ACTION TAKEN: Patient indicated symptoms are better or same, no action required. Continue outreach. MEDICATIONS: Many patients have questions or concerns about their medications once they are home. Do you have any questions about taking your medications or which medication you should be on? No Do you need any medication refills at this time, including any of the medications you might take only when needed? No ACTION TAKEN: No action required For RNs or Pharmacy completing outreach ONLY, was a medication review completed? Yes partial review completed- pt states resuming Metformin and Insulin glargine and Insulin aspart today. Rx Keflex at discharge. Pt states his spouse assists with all med administration and organization SOCIAL: We would like to make sure you have what you need so that your basics needs are met - including your personal safety, food, housing and medications. Would you like to speak with a social work presentation team member to help give you support for any of these needs? Not assessed It can be normal to feel anxious or down during a time like this. Would you like to talk to a mental health professional about how you have been feeling? Not assessed ACTION TAKEN: No action taken DISCHARGE INTRUCTIONS: Your discharge instructions / After Visit Summary (AVS) are important in guiding you through the recovery process. Do you have any questions related to your discharge instructions? No Do you have all the necessary equipment and supplies at home? Yes ACTION TAKEN: No action required I would like to help you schedule a hospital follow-up virtual or telephone visit with your PCP. This is a great way for you to connect with your provider to ensure you have safely transitioned home.If you are agreeable, I will send your request to a patient scheduler who will contact and assist you with that appointment. This will give you an opportunity to ask any questions or address any concerns youmay have with your PCP. Inform the patient that if they have any questions or concerns prior to that appointment, to call their PCP's office right away. ACTION TAKEN: Patient desires an appointment - Routed to [facility] [[id number]] for schedulingtelehealth visit (telephonic, virtual visit, or Facetime) within 7 days of discharge with PCP care team. Indicate hospital follow-up appointment needed within 7 days in Provider/FYI box. End Outreach. Your doctor would like us to remind you of the recommendations regarding the coronavirus (Covid19) outbreak: Avoid public places as much as possible. Avoid close contact (within 6 feet) with others you don t live with, especially if they are sick. Stay home if you are sick. Wash your hands regularly for at least 20 seconds with soap and water. Wear a cloth mask in public places to help reduce community spread. Do not go to your Doctor s office unless instructed to do so. For any non- emergency symptoms, call your Doctor s office to get instructions on how to manage (we might recommend a telephone or virtualvisit). For emergency symptoms, proceed to Emergency Department as usual but inform them of cough and fever symptoms SARAH if present (or call on the way if possible). [place] Education Ordered -: No Bobbi Barrera RN October 10, 2023 10:52 AM [facility] NoteHNO ID: [id number] Author: BOBBI BARRERA RN Service: ? Author Type: Registered Nurse Type: Progress Notes Filed: 10/10/2023 11:05 Note Text: TRANSITIONAL CARE MANAGEMENT (TCM) COMMUNITY MONITORING PROGRAM Provider Action/FYI: Pt reports he is doing well this Am. Denies SOB, fever, chills, cough. States he did have some hematuria after cystoscopy with stent placement yesterday that has completely resolved this AM. States voiding without issues. Pt encouraged to maintain fluid intake , will schedule f/u with urology , Dr. Torres . States blood glucose was 265 this AM and will continue to watch closely , states restarting insulins and Metformin . Navigation Team Please assist with scheduling [facility] Hospital Discharge Follow up. TCM Eligible until 10/23/23 Thank you SUMMARY: Discharge Network Status: Gfz-gs-Jrikket (OON) Discharge Pt discharged from [facility] on 10/09/23. Admitted for: abdominal pain , nausea - kidney stones TCM Home Visit Referral Source of Stratification: [facility] Hospital Admission Status: Discharged Readmission Risk Score: N/A Patient's zip code: N/A Is zip code within program service area: No Patient meets program referral criteria: No Patient does not qualify for High Risk TCM Home Visit program due to: Readmission Risk Score does not meet criteria Disposition: Patient does not qualify for HRTIC, will provide TCM outreach follow-up for 30-days Bobbi Barrera RN October 10, 2023 10:44 AM Contact made with patient: Yes Hi my name is Bobbi Barrera RN and I am calling from the [facility] on behalf of your PCP, Taye Horan MD I understand you were recently in the hospital so I am calling to check in with you to ensure you are feeling well now that you're home. May I ask you a few questions related to your hospital stay and well-being? Yes Contact with patient post discharge, spoke to patient. Patient identified by name and . Do you feel your health is BETTER, WORSE, or the SAME since leaving the hospital? Better ACTION TAKEN: Patient indicated symptoms are better or same, no action required. Continue outreach. MEDICATIONS: Many patients have questions or concerns about their medications once they are home. Do you have any questions about taking your medications or which medication you should be on? No Do you need any medication refills at this time, including any of the medications you might take only when needed? No ACTION TAKEN: No action required For RNs or Pharmacy completing outreach ONLY, was a medication review completed? Yes partial review completed- pt states resuming Metformin and Insulin glargine and Insulin aspart today. Rx Keflex at discharge. Pt states his spouse assists with all med administration and organization SOCIAL: We would like to make sure you have what you need so that your basics needs are met - including your personal safety, food, housing and medications. Would you like to speak with a social work presentation team member to help give you support for any of these needs? Not assessed It can be normal to feel anxious or down during a time like this. Would you like to talk to a mental health professional about how you have been feeling? Not assessed ACTION TAKEN: No action taken DISCHARGE INTRUCTIONS: Your discharge instructions / After Visit Summary (AVS) are important in guiding you through the recovery process. Do you have any questions related to your discharge instructions? No Do you have all the necessary equipment and supplies at home? Yes ACTION TAKEN: No action required I would like to help you schedule a hospital follow-up virtual or telephone visit with your PCP. This is a great way for you to connect with your provider to ensure you have safely transitioned home. If you are agreeable, I will send your request to a patient scheduler who will contact and assist you with that appointment. This will give you an opportunity to ask any questions or address any concerns you may have with your PCP. Inform the patient that if they have any questions or concerns prior to that appointment, to call their PCP's office right away. ACTION TAKEN: Patient desires an appointment - Routed to [facility] [[id number]] for scheduling telehealth visit (telephonic, virtual visit, or Facetime) within 7 days of discharge with PCP care team. Indicate hospital follow-up appointment needed within 7 days in Provider/FYI box. End Outreach. Your doctor would like us to remind you of the recommendations regarding the coronavirus (Covid19) outbreak: Avoid public places as much as possible. Avoid close contact (within 6 feet) with others you don?t live with, especially if they are sick. Stay home if you are sick. Wash your hands regularly for at least 20 seconds with soap and water. Wear a cloth mask in public places to help reduce community spread. Do not g (more content not included)...[facility]07-23-2024 Note Patient Outreach ([facility]) JUAN M RODRIGUEZ ([id number]) 1935 M [place] Date Time Provider Department 10/10/23 BOBBI BARRERAFaby During your visit today, we recorded the following information about you: Bobbi Barrera, HÉCTOR 10/10/2023 11:05 AM Signed TRANSITIONAL CARE MANAGEMENT (TCM) COMMUNITY MONITORING PROGRAM Provider Action/FYI: Pt reports he is doing well this Am. Denies SOB, fever, chills, cough. States he did have some hematuria after cystoscopy with stent placement yesterday that has completely resolved this AM. States voiding without issues. Pt encouraged to maintain fluid intake , will schedule f/u with urology , Dr. Torres . States blood glucose was 265 this AM and will continue to watch closely , states restarting insulins and Metformin . Navigation Team Please assist with scheduling [facility] Hospital Discharge Follow up. TCM Eligible until 10/23/23 Thank you SUMMARY: Discharge Network Status: Via-du-Gcxupss (OON) Discharge Pt discharged from [facility] on 10/09/23. Admitted for: abdominal pain , nausea - kidney stones TCM Home Visit Referral Source of Stratification: [facility] Hospital Admission Status: Discharged Readmission Risk Score: N/A Patient's zip code: N/A Is zip code within program service area: No Patient meets program referral criteria: No Patient does not qualify for High Risk TCM Home Visit program due to: Readmission Risk Score does not meet criteria Disposition: Patient does not qualify for HRTIC, will provide TCM outreach follow-up for 30-days Bobbi Barrera RN October 10, 2023 10:44 AM Contact made with patient: Yes Hi my name is Bobbi Barrera RN and I am calling from the [facility] on behalf of your PCP, Taye Horan MD I understand you were recently in the hospital so I am calling to check in with you to ensure you are feeling well now that you're home. May I ask you a few questions related to your hospital stay and well-being? Yes Contact with patient post discharge, spoke to patient. Patient identified by name and . Do you feel your health is BETTER, WORSE, or the SAME since leaving the hospital? Better ACTION TAKEN: Patient indicated symptoms are better or same, no action required. Continue outreach. MEDICATIONS: Many patients have questions or concerns about their medications once they are home. Do you have any questions about taking your medications or which medication you should be on? No Do you need any medication refills at this time, including any of the medications you might take only when needed? No ACTION TAKEN: No action required For RNs or Pharmacy completing outreach ONLY, was a medication review completed? Yes partial review completed- pt states resuming Metformin and Insulin glargine and Insulin aspart today. Rx Keflex at discharge. Pt states his spouse assists with all med administration and organization SOCIAL: We would like to make sure you have what you need so that your basics needs are met - including your personal safety, food, housing and medications. Would you like to speak with a social work presentation team member to help give you support for any of these needs? Not assessed It can be normal to feel anxious or down during a time like this. Would you like to talk to a mental health professional about how you have been feeling? Not assessed ACTION TAKEN: No action taken DISCHARGE INTRUCTIONS: Your discharge instructions / After Visit Summary (AVS) are important in guiding you through the recovery process. Do you have any questions related to your discharge instructions? No Do you have all the necessary equipment and supplies at home? Yes ACTION TAKEN: No action required I would like to help you schedule a hospital follow-up virtual or telephone visit with your PCP. This is a great way for you to connect with your provider to ensure you have safely transitioned home. If you are agreeable, I will send your request to a patient scheduler who will contact and assist you with that appointment. This will give you an opportunity to ask any questions or address any concerns you may have with your PCP. Inform the patient that if they have any questions or concerns prior to that appointment, to call their PCP's office right away. ACTION TAKEN: Patient desires an appointment - Routed to [facility] [[id number]] for scheduling telehealth visit (telephonic, virtual visit, or Facetime) within 7 days of discharge with PCP care team. Indicate hospital follow-up appointment needed within 7 days in Provider/FYI box. End Outreach. Your doctor would like us to remind you of the recommendations regarding the coronavirus (Covid19) outbreak: Avoid public places as much as possible. Avoid close contact (within 6 feet) with others you don?t live with, especially (more content not included)...[facility]07-22-2024 [facility] Medical Records Department [address] [place] [address] Discharge Summary 10/09/23 1708 MR#: [id number] Acct: [id number] Name: JUAN M RODRIGUEZ Rep #: [id number] : [id number] From: Wolfgang Cisneros DO PCP: Dr. Taye Horan MD Status:ADM IN Location: [facility] [id number] Providers Date of Admission: 10/07/23 Date of Discharge: 10/09/23 Primary Care Physician: Dr. Taye Horan MD Consultations 10/08/23 13:20 Consult: Urology Routine Consulting Provider: Adal Torres Reason for Consult: ureteral stones EMERGENT Consult: No MD Notified: Yes Date Notified: 10/09/23 Time Notified: 07:37 Method of Notification: Verbal Reason For Visit: ACUTE HYPOXIA Diagnosis Discharge Diagnosis (1) Nephrolithiasis: Status: Acute Code(s): N20.0 - Calculus of kidney Plan 1. Nausea and vomiting-etiology unclear, resolved at this time, patient remains on a heart healthy diet. 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 #8 intermittent Mobitz 1 second-degree AV block Total clinical time spent by myself addressing the patient's medical issues, reviewing all of his data, and collaborating with patient's care team: 35 minutes Medications at Discharge Home Medications aspirin 81 mg tablet,delayed release 81 mg PO DAILY 05/17/20 ferrous sulfate 325 mg (65 mg iron) tablet 325 mg PO DAILY@0800 05/17/20 glimepiride 1 mg tablet 1 mg PO BID 05/17/20 insulin aspart U-100 100 unit/mL subcutaneous solution 6 unit SQ TID 05/17/20 insulin glargine 100 unit/mL (3 mL) subcutaneous pen 30 unit SQ QHS 05/17/20 lovastatin 20 mg tablet 20 mg PO DAILY 05/17/20 metformin 1,000 mg tablet 1,000 mg PO BID 05/17/20 omeprazole 20 mg tablet,delayed release 40 mg PO DAILY 05/17/20 amlodipine 5 mg tablet 5 mg PO DAILY 06/17/21 cephalexin 500 mg tablet 500 mg PO BID #11 tabs 10/09/23 Hospital Course Operations - (Right ureteral stent placement, right retrograde pyelogram) Summary of Care Provided Minutes Spent on Discharge: 31 Hospital Course: This 87-year-old white male was seen in the emergency room [facility] [place] 3-day history of right lateral abdominal pain near the waist area, patient denied any dysuria. Patient complained of nausea but no vomiting. CBC showed an elevated white blood cell count of 14, hemoglobin was 11.7, creatinine was elevated at 1.84 and BUN was 20. There were no red blood cells in the urine, 0-5 white blood cells and rare bacteria. CT of the abdomen and pelvis showed a 5 mm stone in the right mid ureter and a 4 mm stone at the right ureterovesical junction with mild right hydronephrosis. There were noted to be bilateral subcentimeter nonobstructing renal collecting system stones. Patient was noted to have a pulse ox of 82% on room air., This was rechecked and noted to be 85% on room air later on. Patient was placed on 2 L via nasal cannula, CTA of the chest was obtained-no pulmonary embolus was noted, there is no pulmonary infiltrates or pleural effusion, there is elevation of the right hemidiaphragm with bibasilar atelectasis. Patient was admitted to PCU, pulse ox was monitored and the patient was eventually weaned off oxygen, he was placed on aerosol treatments during his hospitalization. Patient was seen in consultation by urology on 10/09/2023, he was taken to surgery and a right retrograde pyelogram was performed with insertion of a right ureteral stent. Patient tolerated the procedure well and there were no complications. Patient was on telemetry during his hospitalization and he had brief periods of Mobitz type I second-degree AV block. Patient was asymptomatic during these episodes. On 10/09/2023, patient was seen and examined: On examination he appeared in good health and spirits. Vital signs as documented. Skin warm and dry and without overt rashes. Neck without JVD, neck was supple, trachea midline, thyroid was normal. Lungs clear bilaterally, normal air movement was noted. Heart exam notable for regular rhythm, normal sounds and absence of murmurs, rubs or gallops. Abdomen unremarkable and without evidence of organomegaly, masses, or abdominal aortic enlargement. Bowel sounds are present, abdomen is not distended. Extremities nonedematous, no cyanosis was noted, no clubbing was noted. Neuro: Cranial nerves II through XII are grossly intact, no focal motor deficits w (more content not included)...[facility] 10-09-2023 NoteHNO ID: [id number] Author: SHARIF PAYAN MA Service: ? Author Type: Machine Inspector Type: Progress Notes Filed: 10/09/2023 15:23 Note Text: Scan on 10/07/2023 7:31 PM by Essie Del Rosario PA-C: Consultation - Emergency Medicine Scan on 10/07/2023 8:03 PM by Essie Del Rosario PA-C: Consultation - Emergency Medicine Scan on 10/09/2023 7:47 AM by Essie Del Rosario PA-C: Consultation - Patient seen in the ER on 10/07/2023 for right flank pain. They did find 2 stones and patient did meet with Urology for a stent. During his stay his O2 dropped down to 82% was placed on oxygen later taken off and again dropped down to 82%. Patient was admitted due to hypoxia. Sharif Payan [facility]07-22-2024 History of Present illness Narrative* Sharif Payan MA - 10/09/2023 12:56 PM EDT Scan on 10/07/2023 7:31 PM by Essie Del Rosario PA-C: Consultation - Emergency Medicine Scan on 10/07/2023 8:03 PM by Essie Del Rosario PA-C: Consultation - Emergency Medicine Scan on 10/09/2023 7:47 AM by Essie Del Rosario PA-C: Consultation - Patient seen in the ER on 10/07/2023 for right flank pain. They did find 2 stones and patient did meet with Urology for a stent. During his stay his O2 dropped down to 82% was placed on oxygen later taken off and again dropped down to 82%. Patient was admitted due to hypoxia. Sharif Payan MA [facility] Telephone encounter Note * Telephone Encounter - Gladis Adhikari RN - 10/04/2023 1:28 PM EDT The patient has been identified by name and date of : Yes Caregiver verified no other encounters exist for this prescription request: Yes Caregiver confirmed with patient/requestor that no other refills are due, in the near future, with this provider at this time: Yes The last office visit in the department: 07/12/2023 Does the patient have a future office visit with this provider/department: Yes 01/12/2024 Requested Prescriptions Pending Prescriptions Disp Refills omeprazole (PRILOSEC) 40 mg capsule 90 capsule 1 Sig: Take 1 capsule by mouth daily before breakfast. 1/2 hr before meal. Gladis Adhikari RN October 04, 2023 1:28 PM [facility]07-17-2024 Miscellaneous Notes* Telephone Encounter - Gladis Adhikari RN - 10/04/2023 1:28 PM EDT The patient has been identified by name and date of : Yes Caregiver verified no other encounters exist for this prescription request: Yes Caregiver confirmed with patient/requestor that no other refills are due, in the near future, with this provider at this time: Yes The last office visit in the department: 07/12/2023 Does the patient have a future office visit with this provider/department: Yes 01/12/2024 Requested Prescriptions Pending Prescriptions Disp Refills omeprazole (PRILOSEC) 40 mg capsule 90 capsule 1 Sig: Take 1 capsule by mouth daily before breakfast. 1/2 hr before meal. Gladis Adhikari RN October 04, 2023 1:28 PM documented in this encounter[facility] Telephone encounter Note * Telephone Encounter - Taye Horan MD - 09/14/2023 8:09 PM EDT The following approved medication requests have been transmitted electronically. Requested Prescriptions Signed Prescriptions Disp Refills blood sugar diagnostic (CONTOUR TEST STRIPS) test strip 200 Strip 3 Sig: Test blood sugar(s) 4 times daily. Dx: Type 2 DM - Controlled E11.9 Insulin: Yes Authorizing Provider: TAYE HORAN MD [facility]06-[facility] Miscellaneous Notes* Telephone Encounter - Taye Horan MD - 09/14/2023 8:09 PM EDT The following approved medication requests have been transmitted electronically. Requested Prescriptions Signed Prescriptions Disp Refills blood sugar diagnostic (CONTOUR TEST STRIPS) test strip 200 Strip 3 Sig: Test blood sugar(s) 4 times daily. Dx: Type 2 DM - Controlled E11.9 Insulin: Yes Authorizing Provider: TAYE HORAN MD * Telephone Encounter - Luna Garcia LPN - 09/14/2023 3:21 PM EDT The patient has been identified by name and date of : Yes Caregiver verified no other encounters exist for this prescription request: Yes Caregiver confirmed with patient/requestor that no other refills are due, in the near future, with this provider at this time: Yes The last office visit in the department: 07/12/2023 Does the patient have a future office visit with this provider/department: Yes 01/12/2024 Requested Prescriptions Pending Prescriptions Disp Refills blood sugar diagnostic (CONTOUR TEST STRIPS) test strip 200 Strip 3 Sig: Test blood sugar(s) 4 times daily. Dx: Type 2 DM - Controlled E11.9 Insulin: Yes Pharmacy said has been 6 months need new rx for his insurance. Luna Garcia LPN September 14, 2023 3:23 PM documented in this encounter[facility]06-[facility] Telephone encounter Note * Telephone Encounter - Luna Garcia LPN - 09/14/2023 3:21 PM EDT The patient has been identified by name and date of : Yes Caregiver verified no other encounters exist for this prescription request: Yes Caregiver confirmed with patient/requestor that no other refills are due, in the near future, with this provider at this time: Yes The last office visit in the department: 07/12/2023 Does the patient have a future office visit with this provider/department: Yes 01/12/2024 Requested Prescriptions Pending Prescriptions Disp Refills blood sugar diagnostic (CONTOUR TEST STRIPS) test strip 200 Strip 3 Sig: Test blood sugar(s) 4 times daily. Dx: Type 2 DM - Controlled E11.9 Insulin: Yes Pharmacy said has been 6 months need new rx for his insurance. Luna Garcia LPN September 14, 2023 3:23 PM [facility]06-[facility] History of Present illness Narrative* Marcelina Garcia RN - 09/12/2023 12:35 PM EDT [facility] Telephonic Outreach Provider Action/FYI Patient states: -doing well -believes in water/staying well-hydrated -no health concerns -granddtr to visit today/says a lot like him Contacted for: Routine Telephonic Outreach Contact made with patient: Yes Patient identified by name and date of . Discussed care with patient Are you experiencing any new or worsening symptoms you need to talk about today? No Disease Specific Do you check your blood pressure at home? No Do you have new or worsening shortness of breath with activity? No Do you feel like you are dehydrated for any reason, including not being able to eat or drink normally, or having less urine/much darker urine than normal for you? No Do you check your daily weight at home? Yes, Have you noticed a sudden gain in weight greater than three pounds in a day or three pounds in a week? No Based on sales solutions associate, the following disposition is advised: No symptoms or symptoms present, not severe. Routed to: No Action Needed [place] Education Provided this Outreach: No Marcelina Garcia RN September 12, 2023 12:38 PM documented in this encounter[facility]06-[facility] History of Present illness Narrative* Marcelina Garcia RN - 09/11/2023 3:18 PM EDT [facility] Telephonic Outreach Provider Action/FYI Contacted for: Routine Telephonic Outreach Contact made with patient: No, left message. Marcelina Garcia RN September 11, 2023 5:45 PM documented in this encounterFisher[facility]05-[facility]24 History of Present illness Narrative* Marcelina Garcia RN - 08/10/2023 9:56 AM EDT [facility] Telephonic Outreach Provider Action/FYI Patient states: -grandkids help out and do yard work -he's doing well -enjoying sitting on deck (smokes cigar) -d/t aging, finds himself tired late afternoon/takes nap -appreciates call Contacted for: Routine Telephonic Outreach Contact made with patient: Yes Patient identified by name and date of . Discussed care with patient Are you experiencing any new or worsening symptoms you need to talk about today? No Disease Specific Do you check your blood pressure at home? No Do you have new or worsening shortness of breath with activity? No Do you feel like you are dehydrated for any reason, including not being able to eat or drink normally, or having less urine/much darker urine than normal for you? No Do you check your daily weight at home? Yes, Have you noticed a sudden gain in weight greater than three pounds in a day or three pounds in a week? No Based on sales solutions associate, the following disposition is advised: No symptoms or symptoms present, not severe. Routed to: No Action Needed [place] Education Provided this Outreach: No Marcelina Garcia RN August 10, 2023 1:17 PM documented in this encounterFisher[facility]04-24-2024 Instructions* Patient Instructions* Taye Horan MD - 07/12/2023 11:44 AM EDT Consider decreasing the Baslagar to 20 units before bed. Please bring in copies of your power of personal injury attorney for health care and living will. Please get labs and urine test done on or after 12/29/2023 prior to your next visit. Screening schedule The following prevention plan is recommended: Advance Directive Discussion due on 03/20/2023 Behavioral Health Screening Never done Diabetic Foot Exam due on 07/09/2023 WHAT YOU CAN DO TO PREVENT FALLS Many falls can be prevented. By making some changes, you can lower your chances of falling. Four things YOU can do to prevent falls for you* and your caregiver 1. Begin a regular exercise program Exercise is one of the most important ways to lower your chances of falling. It makes you stronger and helps you feel better. Exercises that improve balance and coordination (like Sean Chi) are the most helpful. Lack of exercise leads to weakness and increases your chances of falling. Ask your doctor or health care provider about the best type of exercise program for you. 2. Have your health care provider review your medicines Have your doctor or pharmacist review all the medicines you take, even [id number] medicines. As you get older, the way medicines work in your body can change. Some medicines, or combinations of medicines, can make you sleepy or dizzy andcan cause you to fall. 3. Have your vision checked Have your eyes checked by an eye doctor at least once a year. You may be wearing the wrong glasses or have a condition like glaucoma or cataracts that limits your vision. Poor vision can increase your chances of falling. 4. Make your home safer About half of all falls happen at home. To make your home safer: Remove things you can trip over (like papers, books, clothes, and shoes) from stairs and places where you walk. Remove small throw rugs or use double-sided tape to keep the rugs from slipping. Keep items you use often in cabinets you can reach easily without using a step stool. Have grab bars put in next to your toilet and in the tub or shower. Use non-slip mats in the bathtub and on shower floors. Improve the lighting in your home. As you get older, you need brighter lights to see well. Hang light-weight curtains or shades to reduce glare. Have handrails and lights put in on all staircases. Wear shoes both inside and outside the house. Avoid going barefoot or wearing slippers. For more information, contact: [facility] for Disease Control and Prevention www.cdc.gov/injury * This information may not apply if you have certain medical conditions. documented in this encounter[facility]04-[facility]-2024 History of Present illness Narrative* Taye Horan MD - 07/12/2023 11:20 AM EDT Images from the original note were not included. Juan M Rodriguez is a 87 year old male here for a Medicare wellness visit. Medicare Health Risk Assessment General Health good Exercise: Minutes/Day none Exercise: Days/Week Alcohol: Daily Use No, on a rare occasion Alcohol: Drinks/Day Alcohol: 6 or more drinks Feel off balance On occasion Concerns: Teeth/Dentures Concerns: Sexual function Troubled by feelings none Frequency: Eating healthy diet 6-7 ADLs requiring help none Safety precautions in home/vehicle Wears seat belts, no loose rugs, no grab bars, stairs have rails Smoke, vape, chews tobacco Cigar several times a week Difficulty hearing Some times Difficulty seeing Wears glasses Current Providers Specialists: I have reviewed specialist-related care of the patient in the medical record. Current care team: Patient Care Team: Taye Horan MD as PCP - General (Family Medicine) Marcelina Garcia, RN as Answering Service Telephone Operator (Family Medicine) Dr. Sainz (Gastro) Medical/Family history review Reviewed and updated problem list, medical/surgical/family/social history, medications, and allergies. Opioid use review Opioid Medications (last 90 days) No data to display Depression screening Depression Screening PHQ-2 Score ALON-2 Total Score 07/12/2023 0 0 Depression screening tool completed and reviewed. Based on score and interview, patient is not at risk for depression. Screening tool discussed with patient, and I recommended no further interventionat this time. Cognitive screening Score: 5 Cognitive screening reviewed and No further action needed (score 3-5). Functional Observation Was the patient's Timed Up & Go test unsteady or ? 12 seconds? No Advance Care Planning Surrogate decision maker and/or advance care plan documented Measurements BP 122/64 Pulse 76 Resp 6 Ht 6' 0 (1.83m) Wt 227 lb (103.0kg) BMI 30.78 kg/(m^2). Vision Screening: Follows with optometry/ophthalmology Assessment/Plan Medicare annual wellness visit, subsequent (Z00.00) - Counseled on healthy diet and regular exercise - Fall avoidance information provided - Personalized prevention plan provided See Below Chief Complaint Patient presents with: Medicare Wellness Exam HPI Juan M Rodriguez is a 87 year old male who presents here today for Chronic Medical Conditions. andMedicare Annual Visit. Patient with Hx pf HTN, dyslipidemia, BPH, DM 2, GERD, CKD, smoker, anemia of chronic disease, BPH as well as those reviewed and addressed below and in ROS. Patient sees Dr. Mane Podiatry next visit 10/2023 Patient sees ophthalmology [facility] 06/27/2023. Past medical history, appointments, medications, allergies reviewed. Previous Medical History PAST MEDICAL HISTORY Diagnosis Date Acute pancreatitis Advance directive discussed with patient 07/07/2021 Discussed 06/2021 Anemia of chronic disease 11/03/2019 Benign prostatic hyperplasia with lower urinary tract symptoms 09/03/2018 COVID-19 virus infection 03/23/2021 03/19/2021 Diabetic eye exam (HCC) 05/07/2019 Last done: 04/30/2019 Diarrhea 07/08/2022 Consult Gastro: Dr. Sainz patient cancelled appt on 08/31/2022 and did not reschedule. Saw gastro in [place] Diverticulosis 07/08/2022 Dyslipidemia 09/03/2018 Essential hypertension 09/03/2018 GERD without esophagitis 09/03/2018 History of colonic polyps 09/03/2018 Last colonoscopy 08/2017: Needs repeat 3 yrs History of COVID-19 03/23/2021 03/19/2021 History of kidney stones 09/03/2018 Hypertensive chronic kidney disease with stage 1 through stage 4 chronic kidney disease, or unspecified chronic kidney disease 09/03/2018 Hypomagnesemia 01/23/[address] 07/07/2021 DPA: [place] () Medicare annual wellness visit, subsequent 09/03/2018 Medicare Part B: 12/18/2001 Last done 09/03/2018 Nausea 07/08/2022 Consult Gastro: Dr. Sainz Portal hypertension (HCC) Sepsis (HCC) 2016 Smoker 09/03/2018 Started at the age of 31 up to 1 cigar a day. Stage 3b chronic kidney disease (HCC) 10/01/2019 Type 2 diabetes mellitus with stage 3b chronic kidney disease, with long-term current use of insulin (HCC) 09/03/2018 Previous Surgical History PAST SURGICAL HISTORY Procedure Laterality Date CHOLECYSTECTOMY HX 2013 COLONOSCOPY GEN ANES 02/20/2017 COLONOSCOPY SCREENING 06/21/2021 EGD EUS 06/23/2020 PAST SURGICAL HISTORY OF 2017 Left inguinal PAST SURGICAL HISTORY OF 2016 bilatreral cataracts Family History FAMILY HISTORY Problem Relation Age of Onset Hypertension Father Stroke Father Coronary Artery Disease Sister Diabetes Sister COPD Sister Cancer Sister Lung Alzheimer's Disease No Family History Colon Cancer No Family History Prostate Cancer No Family History Breast Cancer No Family History Ovarian cancer No Family History Uterine Cancer No Family History Kidney Disease No Family History Seizures No Family History Thyroid No Family History Patient Allergies ALLERGIES Allergen Reactions Dilaudid [[employer]* Mental Status Change Lisinopril Other: See Comments angioedema Magnesium Oxide Other: See Comments Loose stools, leg and foot pain Penicillins Unknown Current Medications Current Outpatient Medications on File Prior to Visit Medication Sig insulin aspart, niacinamide, (FIASP FLEXTOUCH U-100 INSULIN) 100 unit/mL (3 mL) pen Inject 6 Units subcutaneously three times a day before meals. amLODIPine (NORVASC) 5 mg tablet Take 1 tablet by mouth once daily. one tab daily Lancets (MICROLET LANCET) 1 Each four times daily. Dx: Type 2 DM - Controlled E11.9 Insulin: Yes fenofibrate (LOFIBRA) 200 mg capsule Take 1 capsule by mouth daily before breakfast. lovastatin (MEVACOR) 20 mg tablet Take 1 tablet by mouth daily at bedtime. metFORMIN (GLUCOPHAGE) 1,000 mg tablet Take 1 tablet by mouth two times a day with meals. insulin glargine (BASAGLAR KWIKPEN U-100 INSULIN) 100 unit/mL (3 mL) Inject 25 Units subcutaneouslydaily at bedtime. blood sugar diagnostic (CONTOUR TEST STRIPS) test strip Test blood sugar(s) 4 times daily. Dx: Type2 DM - Controlled E11.9 Insulin: Yes omeprazole (PRILOSEC) 40 mg capsule Take 1 capsule by mouth daily before breakfast. 1/2 hr before meal. glimepiride (AMARYL) 1 mg tablet Take 1 tablet by mouth two times a day. Insulin [place], Disposable, (SURE COMFORT PEN NEEDLE) 32 gauge x 5/32 1 Each four times daily. Magnesium Glycinate 100 mg tab Take 1 tablet by mouth every other day. Cholecalciferol, Vitamin D3, 50 mcg (2,000 unit) cap Take 1 capsule by mouth. ferrous sulfate 325 mg (65 mg iron) tablet Take 325 mg by mouth daily with breakfast. aspirin, enteric coated (ASPIRIN, ENTERIC COATED) 81 mg EC tablet Take 1 tablet by mouth once daily. No current facility-administered medications on file prior to visit. Social History Social History Tobacco Use Smoking status: Every Day Types: Cigars Smokeless tobacco: Never Tobacco comments: 1/day Vaping Use Vaping Use: Never used Substance Use Topics Alcohol use: Yes Comment: rare Drug use: Never Review of Symptoms REVIEW OF SYSTEMS GENERAL: No weight loss, malaise or fevers HEENT: Negative for frequent or significant headaches, No changes in hearing or vision, no nose bleeds or other nasal problems NECK: Negative for lumps, goiter, pain and significant neck swelling RESPIRATORY: Negative for cough, hemoptysis, wheezing, COPD, dyspnea or shortness of breath CARDIOVASCULAR: Negative for chest pain, leg swelling, hypertension, CHF or palpitations GI: No nausea, vomiting, or diarrhea, No heartburn or reflux symptoms, and no blood : No history of dysuria, frequency or blood MSK: no abnormal muscle or joint aches SKIN: Negative for lesions, rash, and itching PSYCH: Negative for sleep disturbance, mood disorder and recent psychosocial stressors HEMATOLOGY/LYMPHOLOGY: Negative for prolonged bleeding, bruising easily or swollen nodes ENDOCRINE: Negative for cold or heat intolerance, symptoms of low BS's NEURO: No history of headaches, syncope, paralysis, seizures or tremors EXAM: BP 122/64 (BP Site: Right Arm, BP Position: Sitting, BP Cuff Size: Regular Adult) Pulse 76 Resp6 Ht 182.9 cm (6') Wt 103 kg (227 lb) BMI 30.79 kg/m Last 4 Encounter Wt Readings: Date: Wt: 07/12/2023 103 kg (227 lb) 03/30/2023 102.5 kg (226 lb) 11/08/2022 101.2 kg (223 lb) 07/08/2022 102.1 kg (225 lb) General Appearance: Well appearing, alert, in no acute distress, well-hydrated, well nourished. andOverweight. Skin: Skin color, texture, turgor normal, no suspicious rashes or lesions. Head: Normocephalic, no masses, lesions, tenderness or abnormalities. Eyes: Anicteric sclera. Pupils are equally round and reactive to light. Extraocular movements are intact. . Ears: External ears normal, canals clear. Nose/Sinuses: Nares normal, septum midline, mucosa normal, no drainage or sinus tenderness. Oropharynx: Lips, mucosa, and tongue normal, teeth and gums normal, oropharynx normal. Neck: Supple, no adenopathy; thyroid symmetric, normal size, no bruits. Lungs: Lungs clear to auscultation. No wheezing, rhonchi, rales.. Heart: RRR without murmur, gallop, or rubs. No ectopy. Abdomen: Normal abdominal exam, Abdomen soft, non-tender. Bowel sounds normal. No masses, organomegaly. Extremities: No deformities, edema, skin discoloration, clubbing or cyanosis. Good capillary refill. . Musculoskeletal: Muscular strength intact, No joint swelling, deformity, or tenderness. Peripheral Pulses: Normal. Neurologic: Gait normal. Reflexes normal and symmetric. Sensation grossly intact.. Genitalia: declined Diabetic Foot Exam: Feet: Shoes and socks removed, no deformities, ulcers, calluses, normal distal pulses, sensitive to10 gm microfilament, and vibratory exam within normal limits Skin: warm, dry, and no callouses or ulcer Vascular Pulses: Normal SEMMES-DONALD MONOFILAMENT TESTING Left Foot Right Foot Dorsal Surface Intact Dorsal Surface Intact Plantar Surface Intact Plantar Surface Intact Health Maintenance List Advance Directive Discussion due on 03/20/2023 Behavioral Health Screening Never done Diabetic Foot Exam due on 07/09/2023 HbA1C due on 01/06/2024 Dilated Retinal Exam due on 06/26/2024 Urine Albumin:Creatinine Ratio due on 07/06/2024 LDL Cholesterol due on 07/06/2024 DTaP,Tdap,Td Vaccine(3 - Td or Tdap) due on 02/18/2032 Influenza Vaccine Completed RSV Vaccine Completed Shingrix Vaccine Completed Covid-19 Vaccine Completed Pneumococcal Vaccine: 65+ Completed Data reviewed A/P ASSESSMENT/PLAN: 1. Medicare annual wellness visit, subsequent - ICD9: V70.0, ICD10: Z00.00 (primary diagnosis) - Counseled on healthy diet and regular exercise - Discussed need for and benefit of weight loss. BMI 30.79 kg/(m^2) - Follow up for annual exam in one year 2. Type 2 diabetes mellitus with stage 3b chronic kidney disease, with long-term current use of insulin (HCC) - ICD9: 250.40, 585.3, V58.67, ICD10: E11.22, N18.32, Z79.4 - Controlled - Continue current medications - Counseled on healthy diet and regular exercise - Discussed need for and benefit of weight loss. BMI 30.79 kg/(m^2) - patient to consider decreasing the Baslagar to 20 units before bed. - eGFR: 45 Stable - Counseled on avoiding NSAIDs, adequate hydration - patient on CCB 3. Diabetic eye exam ([facility]) - ICD9: V72.0, 250.00, ICD10: Z01.00, E11.9 - up to date 4. Essential hypertension - ICD9: 401.9, ICD10: I10 - Controlled - Continue current medications - Recommend home blood pressure monitoring, to bring results to next visit - Encouraged sodium restriction, DASH or Mediterranean diet - Recommend regular aerobic exercise 5. Dyslipidemia - ICD9: 272.4, ICD10: E78.5 - Controlled - Continue current medications - Counseled on healthy diet and regular exercise 6. Anemia of chronic disease - ICD9: 285.29, ICD10: D63.8 - stable no changes 7. GERD without esophagitis - ICD9: 530.81, ICD10: K21.9 - Continue treatment with Prilosec 40 mg QD 8. Hypertensive chronic kidney disease with stage 1 through stage 4 chronic kidney disease, or unspecified chronic kidney disease - ICD9: 403.90, ICD10: I12.9 - Controlled - Continue current medications - Recommend home blood pressure monitoring, to bring results to next visit - Encouraged sodium restriction, DASH or Mediterranean diet - Recommend regular aerobic exercise 9. Stage 3b chronic kidney disease (HCC) - ICD9: 585.3, ICD10: N18.32 - eGFR: 45 Stable - no changes needed. 10. Smoker - ICD9: 305.1, ICD10: F17.200 - Cessation encouraged. - Counseling was given focusing on the harmful effects of this addiction especially given the patient's medical condition(s) which will be worsened because of the chemicals in tobacco. 11. Hypomagnesemia - ICD9: 275.2, ICD10: E83.42 - stale at 1.5. when we try to increase his Mg replacement he get diarrhea. 12. Benign prostatic hyperplasia with lower urinary tract symptoms, symptom details unspecified - ICD9: 600.01, ICD10: N40.1 - stable no changes 13. Advance directive discussed with patient - ICD9: V65.49, ICD10: Z71.89 - needs to bring in documents. - patient said his spearer told him we do not need them. Requested Prescriptions Signed Prescriptions Disp Refills glimepiride (AMARYL) 1 mg tablet 180 tablet 1 Sig: Take 1 tablet by mouth two times a day. F/u 6 months routine check BMP, Lipid, A1c, CBC, Mg I spent a total of 40 minutes on the date of the service which included preparing to see the patient, [id number] patient care, completing clinical documentation, performing a medically appropriate examination, counseling and educating the patient/family/caregiver and ordering medications, tests, or procedures. Taye Horan MD documented in this [facility]04-[facility] History of Present illness Narrative* Marcelina Garcia, RN - 07/06/2023 8:47 AM EDT [facility] Telephonic Outreach Provider Action/FYI Patient states: -staying hydrated aware of importance/drinks water -has been taking to [facility] [place] for her treatments -can get tired at times; did take nap/ or just rested after long day/trip Contacted for: Routine Telephonic Outreach Contact made with patient: Yes Patient identified by name and date of . Discussed care with patient Are you experiencing any new or worsening symptoms you need to talk about today? No Disease Specific Do you check your blood pressure at home? No Do you have new or worsening shortness of breath with activity? No Do you feel like you are dehydrated for any reason, including not being able to eat or drink normally, or having less urine/much darker urine than normal for you? No Do you check your daily weight at home? Yes, Have you noticed a sudden gain in weight greater than three pounds in a day or three pounds in a week? No Based on sales solutions associate, the following disposition is advised: No symptoms or symptoms present, not severe. Routed to: No Action Needed [place] Education Provided this Outreach: No Marcelina Garcia RN July 06, 2023 4:27 PM documented in this encounter[facility]04-[facility]24 Miscellaneous Notes* Telephone Encounter - Gladis Adhikari RN - 07/04/2023 10:30 AM EDT Patient informed. Gladis Adhikari RN * Telephone Encounter - Taye Horan MD - 07/04/2023 9:16 AM EDT Let patient new insulin sent to pharmacy. The dosing is the same as the previous one. The following approved medication requests have been transmitted electronically. Requested Prescriptions Signed Prescriptions Disp Refills insulin aspart, niacinamide, (FIASP FLEXTOUCH U-100 INSULIN) 100 unit/mL (3 mL) pen 5 Each 1 Sig: Inject 6 Units subcutaneously three times a day before meals. Authorizing Provider: TAYE HORAN MD * Telephone Encounter - Gladis Adhikari RN - 07/04/2023 8:32 AM EDT Patient calling and states he received a letter from his insurance that they are no longer coveringhis Novolog Flexpen u-100 insulin. Pt states his insurance has recommended Fiasp Flextouch as a covered alternative. (Pended for review) Pt asking if PCP would be agreeable to placing this order and sending to [facility] today. Pt reports he will be out of insulin tomorrow. Please call patient with update. Thank you. documented in this encounterFisher[facility]04-10-2024 Miscellaneous Notes* Telephone Encounter - Taye Horan MD - 06/28/2023 4:45 PM EDT The following approved medication requests have been transmitted electronically. Requested Prescriptions Signed Prescriptions Disp Refills amLODIPine (NORVASC) 5 mg tablet 90 tablet 1 Sig: Take 1 tablet by mouth once daily. one tab daily Authorizing Provider: TAYE HORAN MD * Telephone Encounter - Brittany Cantor - 06/28/2023 2:59 PM EDT Patient has been identified by name and date of : Yes, Provider Dr. Horan Date 06-28-23 Time 3:00 pm Patient phones for refill(s): Requested Prescriptions Pending Prescriptions Disp Refills amLODIPine (NORVASC) 5 mg tablet 90 tablet 0 Sig: Take 1 tablet by mouth once daily. one tab daily Date of last office visit in primary care: 03/30/2023 Date of next office visit in primary care: 07/12/2023 Please advise. Thank you. Brittany Ritter. documented in this encounterFisher-[facility]03-11-2024 Miscellaneous Notes* Telephone Encounter - Gladis Adhikari RN - 05/29/2023 1:42 PM EDT agreeable to appt as currently scheduled. Gladis Adhikari RN * Telephone Encounter - Gladis Adhikari RN - 05/29/2023 8:50 AM EDT Message left for pt or to call in, to confirm that pt is able to come to his rescheduled appt on 07/12/23 at 11:[address] Horan. Gladis Adhikari RN documented in this encounterFisher-[facility]03-06-2024 History of Present illness Narrative* Marcelina Garcia RN - 05/24/2023 9:11 AM EST CDM Telephonic Outreach Provider Action/FYI Patient states: -doing well -like to have podiatry check him and stay on top of things d/t DM -no concerns -drinks lots of water/wakes up at night to pee/takes another drink of water/well hydrated Contacted for: Routine Telephonic Outreach Contact made with patient: Yes Patient identified by name and date of . Discussed care with patient Are you experiencing any new or worsening symptoms you need to talk about today? No Disease Specific Do you check your blood pressure at home? No Do you have new or worsening shortness of breath with activity? No Do you feel like you are dehydrated for any reason, including not being able to eat or drink normally, or having less urine/much darker urine than normal for you? Yes Do you check your daily weight at home? No Based on sales solutions associate, the following disposition is advised: No symptoms or symptoms present, not severe. Routed to: No Action Needed [place] Education Provided this Outreach: No Marcelina Garcia RN May 24, 2023 11:06 AM documented in this encounterFisher-[facility]02-16-2024 Miscellaneous Notes* Telephone Encounter - Madison Woodard RN - 05/05/2023 8:58 AM EST Patient has been identified by name and date of : Yes, Provider Dr Horan Date 05/05/23 Time 0901. Patient phones for refill(s): Requested Prescriptions Pending Prescriptions Disp Refills metFORMIN (GLUCOPHAGE) 1,000 mg tablet 180 tablet 1 Sig: Take 1 tablet by mouth two times a day with meals. Date of last office visit in primary care: 03/30/2023 Date of next office visit in primary care: Visit date not found Please advise. Thank you. Madison Woodard RN. documented in this encounterFisher-[facility]02-06-2024 Miscellaneous Notes* Telephone Encounter - Sharif Payan MA - 04/25/2023 4:55 PM EST Faxed and sent to scanning. Left message detailed message for patient. Sharif Payan MA * Telephone Encounter - Taye Horan MD - 04/25/2023 4:32 PM EST Forms ready to be faxed. Please have copy scanned into chart (I was not able to find a previous one to refer to) * Telephone Encounter - Sharif Payan MA - 04/24/2023 2:18 PM EST Forms have been received and given to provider to review. Sharif Payan MA * Telephone Encounter - Hyun Dave RN - 04/24/2023 12:16 PM EST Patient calls to verify that provider's office has received forms from [employer] (faxed today). Forms are for patient to continue getting Novolog insulin. Patient requests call back at [phone] if forms not received or when forms have been sent back. Hyun Dave RN documented in this encounterFisher-[facility] Center12-15-2023 Miscellaneous Notes* Telephone Encounter - Tosin Merlos LPN - 03/03/2023 10:11 AM EST Patient has been identified by name and date of : Yes, Provider Dr. Horan Date 03/03/23 Time 10:11 am Patient phones for refill(s): Requested Prescriptions Pending Prescriptions Disp Refills omeprazole (PRILOSEC) 40 mg capsule 90 capsule 1 Sig: Take 1 capsule by mouth daily before breakfast. 1/2 hr before meal. Date of last office visit in primary care: 11/08/2022 Date of next office visit in primary care: 03/30/2023 Call pt back only if there is a problem. Thank you. Tosin Merlos LPN. documented in this encounterFisher-[facility] Center11-01-2023 History of Present illness Narrative* Marcelina Garcia RN - 01/18/2023 1:07 PM EDT CDM Telephonic Outreach Provider Action/FYI Patient states: -went to provider at [facility] provider to tx sinus infection recently -was given meds Zpack and steroids, took one day of steroids; sugar went way up -usually 95-120 after steroids was 250 -BS now 105, 95 -he stopped taking steroids and call PCP to advise of same -still awaiting call back from PCP office; RN took message -politely declines need to speak to virtualist automotive salesperson -s/s finally improving -he'll call appt line to schedule w/ provider/appreciates assistance provided Contacted for: Routine Telephonic Outreach Contact made with patient: Yes Patient identified by name and date of . Discussed care with patient Are you experiencing any new or worsening symptoms you need to talk about today? No Disease Specific Do you check your blood pressure at home? No Do you have new or worsening shortness of breath with activity? No Do you feel like you are dehydrated for any reason, including not being able to eat or drink normally, or having less urine/much darker urine than normal for you? No Do you check your daily weight at home? No Based on sales solutions associate, the following disposition is advised: No symptoms or symptoms present, not severe. Routed to: No Action Needed [place] Education Provided this Outreach: No Marcelina Garcia RN January 18, 2023 5:17 PM documented in this encounterFisher-[facility] Center10-27-2023 Miscellaneous Notes* Telephone Encounter - Gladis Adhikari RN - 01/13/2023 8:10 AM EDT Patient calling to report he went to [facility] yesterday due to URI sx's and abnormal lung sounds, particularly in right lung. Was prescribed Z-aleksandar and steroids. Took dose of steroids and blood sugar increased to 249. Pt reports he contacted [facility] Manager to discuss elevatedsugars. Pt then decided on his own not to continue steroids at this time. Pt reports he feels better already this morning. Reports Z-aleksandar usually helps him quickly. Advised pt that PCP Team is OOO today and this weekend. Reminded pt to seek EC for any worsening sx's and to ER for any severe sx's over the weekend, as discussed. Pt also advised to F/U with PCP office if sx's not improving. Pt voiced understanding. Gladis Adhikari RN documented in this encounterFisher-[facility] Center10-23-2023 History of Present illness Narrative* Marcelina Garcia RN - 01/09/2023 7:27 PM EDT [facility] Telephonic Outreach Provider Action/FYI Contacted for: Routine Telephonic Outreach Contact made with patient: Yes Patient identified by name and date of . Discussed care with patient Are you experiencing any new or worsening symptoms you need to talk about today? No Disease Specific Do you check your blood pressure at home? No Do you have new or worsening shortness of breath with activity? No Do you feel like you are dehydrated for any reason, including not being able to eat or drink normally, or having less urine/much darker urine than normal for you? No Do you check your daily weight at home? No Based on sales solutions associate, the following disposition is advised: No symptoms or symptoms present, not severe. Routed to: No Action Needed [place] Education Provided this Outreach: No Marcelina Garcia RN January 10, 2023 5:13 PM documented in this encounterFisher[facility]08-22-2023 History of Present illness Narrative* Taye Horan MD - 11/08/2022 10:33 AM EDT Chief Complaint Patient presents with: F/U 6 months HPI Juan M Rodriguez is a 86 year old male who presents here today for 6 month follow up. Office visit - 6 month follow up Patient with Hx pf HTN, dyslipidemia, BPH, DM 2, GERD, CKD, smoker, anemia of chronic disease, BPH as well as those reviewed and addressed below and in ROS. Patient has been doing ok. Had to stop the Mag oxide due to diarrhea. Patient talked with his niece who is a Pharmacist and advised trying Magnesium glycinate and to take it every other day. Dealing with 's recent diagnosis of multiple myeloma. Doing ok for the most part. Just tired with all the trips to [facility]. Office visit 6 month follow up 11/10/2021 Patient with Hx pf HTN, dyslipidemia, BPH, DM 2, GERD, CKD, smoker, anemia of chronic disease, BPH as well as those reviewed and addressed below and in ROS Patient was having pain in his feet and occasional calf cramps. He thought it was worse with being on the magnesium and when he looked up the magnesium he found it could be a cause and when he stopped it the symptoms resolved and his diarrhea/loose stools decreased. Patient has seen Podiatry. Patient has been doing well. Was off his iron for about 1-2 months and just got back on it. Past medical history, appointments, medications, allergies reviewed. Previous Medical History PAST MEDICAL HISTORY Diagnosis Date Acute pancreatitis Advance directive discussed with patient 07/07/2021 Discussed 06/2021 Anemia of chronic disease 11/03/2019 Benign prostatic hyperplasia with lower urinary tract symptoms 09/03/2018 CKD (chronic kidney disease) stage 3, GFR 30-59 ml/min (HCC) 10/01/2019 COVID-19 virus infection 03/23/2021 03/19/2021 Diabetic eye exam (HCC) 05/07/2019 Last done: 04/30/2019 Diverticulosis 07/08/2022 Dyslipidemia 09/03/2018 Essential hypertension 09/03/2018 GERD without esophagitis 09/03/2018 History of colonic polyps 09/03/2018 Last colonoscopy 08/2017: Needs repeat 3 yrs History of COVID-19 03/23/2021 03/19/2021 History of kidney stones 09/03/2018 Hypomagnesemia 01/23/[address] 07/07/2021 DPA: Shankar () Medicare annual wellness visit, subsequent 09/03/2018 Medicare Part B: 12/18/2001 Last done 09/03/2018 Portal hypertension (HCC) Sepsis (HCC) 2016 Smoker 09/03/2018 Started at the age of 31 up to 1 cigar a day. Type 2 diabetes mellitus with stage 3 chronic kidney disease, with long-term current use of insulin(HCC) 09/03/2018 Previous Surgical History PAST SURGICAL HISTORY Procedure Laterality Date CHOLECYSTECTOMY HX 2013 COLONOSCOPY GEN ANES 02/20/2017 COLONOSCOPY SCREENING 06/21/2021 EGD EUS 06/23/2020 PAST SURGICAL HISTORY OF 2017 Left inguinal PAST SURGICAL HISTORY OF 2016 bilatreral cataracts Family History FAMILY HISTORY Problem Relation Age of Onset Hypertension Father Stroke Father Coronary Artery Disease Sister Diabetes Sister COPD Sister Cancer Sister Lung Alzheimer's Disease No Family History Colon Cancer No Family History Prostate Cancer No Family History Breast Cancer No Family History Ovarian cancer No Family History Uterine Cancer No Family History Kidney Disease No Family History Seizures No Family History Thyroid No Family History Patient Allergies ALLERGIES Allergen Reactions Dilaudid [[employer]* Mental Status Change Lisinopril Other: See Comments angioedema Magnesium Oxide Other: See Comments Loose stools, leg and foot pain Penicillins Unknown Current Medications Current Outpatient Medications on File Prior to Visit Medication Sig metFORMIN (GLUCOPHAGE) 1,000 mg tablet Take 1 tablet by mouth twice daily with meals. lovastatin (MEVACOR) 20 mg tablet Take 1 tablet by mouth daily at bedtime. blood sugar diagnostic (CONTOUR TEST STRIPS) test strip Test blood sugar(s) 4 times daily. Dx: Type2 DM - Controlled E11.9 Insulin: Yes insulin aspart U-100 (NOVOLOG FLEXPEN U-100 INSULIN) 100 unit/mL (3 mL) Inject 6 Units subcutaneously three times daily before meals. amLODIPine (NORVASC) 5 mg tablet Take 1 tablet by mouth once daily. one tab daily omeprazole (PRILOSEC) 40 mg capsule Take 1 capsule by mouth daily before breakfast. 1/2 hr before meal. insulin glargine (BASAGLAR KWIKPEN U-100 INSULIN) 100 unit/mL (3 mL) Inject 25 Units subcutaneouslydaily at bedtime. Magnesium Oxide 250 mg magnesium tab Take 1 tablet by mouth once daily. glimepiride (AMARYL) 1 mg tablet Take 1 tablet by mouth twice daily. Lancets (MICROLET LANCET) lancets 1 Each four times daily. Dx: Type 2 DM - Controlled E11.9 Insulin: Yes fenofibrate (LOFIBRA) 200 mg capsule Take 1 capsule by mouth daily before breakfast. Insulin [place], Disposable, (SURE COMFORT PEN NEEDLE) 32 gauge x 5/32 1 Each four times daily. Cholecalciferol, Vitamin D3, 50 mcg (2,000 unit) cap Take 1 capsule by mouth. ferrous sulfate 325 mg (65 mg iron) tablet Take 325 mg by mouth daily with breakfast. aspirin, enteric coated (ASPIRIN, ENTERIC COATED) 81 mg EC tablet Take 1 tablet by mouth once daily. No current facility-administered medications on file prior to visit. Social History Social History Tobacco Use Smoking status: Every Day Types: Cigars Smokeless tobacco: Never Tobacco comments: 1/day Vaping Use Vaping Use: Never used Substance Use Topics Alcohol use: Yes Comment: rare Drug use: Never Review of Symptoms REVIEW OF SYSTEMS GENERAL: No weight loss, malaise or fevers NECK: Negative for lumps, goiter, pain and significant neck swelling RESPIRATORY: Negative for cough, hemoptysis, wheezing, COPD, dyspnea or shortness of breath CARDIOVASCULAR: Negative for chest pain, leg swelling, hypertension, CHF or palpitations GI: No nausea, vomiting, or diarrhea and No heartburn or reflux symptoms : No history of dysuria, blood ENDOCRINE: Negative for symptoms of low BS's NEURO: No history of headaches, syncope, paralysis, seizures or tremors EXAM: BP 116/72 (BP Site: Left Arm, BP Position: Sitting, BP Cuff Size: Regular Adult) Pulse 88 Resp 18 Wt 101.2 kg (223 lb) BMI 30.24 kg/m Last 4 Encounter Wt Readings: Date: Wt: 11/08/2022 101.2 kg (223 lb) 07/08/2022 102.1 kg (225 lb) 02/17/2022 104.8 kg (231 lb) 01/10/2022 103.9 kg (229 lb) General Appearance: Well appearing, alert, in no acute distress, well-hydrated, well nourished.. Eyes: Anicteric sclera. Pupils are equally round and reactive to light. Extraocular movements are intact. . Neck: Supple, no adenopathy; thyroid symmetric, normal size, no bruits. Lungs: Lungs clear to auscultation. No wheezing, rhonchi, rales.. Heart: RRR without murmur, gallop, or rubs. No ectopy. Abdomen: Normal abdominal exam, Abdomen soft, non-tender. Bowel sounds normal. No masses, organomegaly. Extremities: No deformities,skin discoloration, Good capillary refill. Mild edema at the ankles. Musculoskeletal: Spine range of motion normal. Muscular strength intact, No joint swelling, deformity, or tenderness. Peripheral Pulses: Normal. Neurologic: Gait normal. Sensation to light touch and crainal nerves 2-12 intact.. Health Maintenance List COVID-19 VACCINE(6 - Moderna series) due on 06/07/2022 INFLUENZA(1) due on 11/18/2022 DILATED RETINAL EXAM due on 03/29/2023 HBA1C due on 05/05/2023 URINE ALBUMIN:CREATININE RATIO due on 07/03/2023 DIABETIC FOOT EXAM due on 07/09/2023 LDL CHOLESTEROL due on 11/03/2023 DTAP,TDAP,TD(3 - Td or Tdap) due on 02/18/2032 ADVANCE DIRECTIVE DISCUSSION Completed DEPRESSION ASSESSMENT Completed SHINGRIX VACCINE Completed PNEUMOCOCCAL: 65+ Completed Data reviewed Component Latest Ref Rng & Units 11/02/2021 07/01/2022 07/02/2022 11/02/2022 WBC 3.70 - 11.00 k/uL 9.26 8.83 RBC 4.20 - 6.00 m/uL 4.34 4.36 Hemoglobin 13.0 - 17.0 g/dL 11.3 (L) 11.5 (L) Hematocrit 39.0 - 51.0 % 36.0 (L) 36.3 (L) MCV 80.0 - 100.0 fL 82.9 83.3 MCH 26.0 - 34.0 pg 26.0 26.4 MCHC 30.5 - 36.0 g/dL 31.4 31.7 RDW-CV 11.5 - 15.0 % 16.1 (H) 16.7 (H) Platelet Count 150 - 400 k/uL 383 424 (H) MPV 9.0 - 12.7 fL 10.8 10.6 Neut% % 55.9 53.2 Abs Neut (ANC) 1.45 - 7.50 k/uL 5.18 4.70 Lymph% % 33.2 33.3 Abs Lymph 1.00 - 4.00 k/uL 3.07 2.94 Schleicher% % 6.6 8.6 Abs Schleicher <0.87 k/uL 0.61 0.76 Eosin% % 3.0 3.9 Abs Eosin <0.46 k/uL 0.28 0.34 Baso% % 0.5 0.3 Abs Baso <0.11 k/uL 0.05 0.03 Immature Gran % % 0.8 0.7 IMMATURE GRANS (ABS) <0.10 k/uL 0.07 0.06 NRBC /100 WBC 0.0 0.0 Absolute nRBC <0.01 k/uL <0.01 <0.01 DTYPE Auto Auto Protein, Total 6.3 - 8.0 g/dL 6.8 Albumin 3.9 - 4.9 g/dL 3.9 Calcium 8.5 - 10.2 mg/dL 10.3 (H) 10.2 Bilirubin, Total 0.2 - 1.3 mg/dL 0.3 Alkaline Phosphatase 38 - 113 U/L 30 (L) AST 14 - 40 U/L 32 ALT 10 - 54 U/L 29 Glucose 74 - 99 mg/dL 82 106 (H) BUN 9 - 24 mg/dL 16 18 Creatinine 0.73 - 1.22 mg/dL 1.63 (H) 1.53 (H) Sodium 136 - 144 mmol/L 139 142 Potassium 3.7 - 5.1 mmol/L 4.3 4.5 Chloride 97 - 105 mmol/L 102 107 (H) CO2 22 - 30 mmol/L 26 25 Anion Gap 9 - 18 mmol/L 11 10 eGFR >=60 mL/min/1.73m 41 (L) 44 (L) Total Cholesterol, Nonfasting <200 mg/dL 122 120 Triglycerides, Nonfasting <150 mg/dL 181 (H) 108 HDL Cholesterol, Nonfasting >39 mg/dL 41 46 LDL Cholesterol, Nonfasting <100 mg/dL 45 52 Non HDL Cholesterol, Nonfasting <130 mg/dL 81 74 VLDL Cholesterol, Nonfasting <30 mg/dL 36 (H) 22 Total Chol/HDL Ratio, Nonfasting <5.10 mg/dL 2.98 2.61 LDL/HDL Ratio, Nonfasting <2.54 mg/dL 1.10 1.13 Creatinine, Ur Random (UCRR) 20.0 - 300.0 mg/dL 124.2 Albumin, Urine Random mg/L <12.0 Albumin/Creat Ratio <30 mg/g <10 Hemoglobin A1C 4.3 - 5.6 % 5.7 (H) 5.8 (H) Estimated Average Glucose mg/dL 117 120 Vitamin B12 232 - 1,245 pg/mL 574 Magnesium 1.7 - 2.3 mg/dL 1.6 (L) 1.4 (L) A/P ASSESSMENT/PLAN: 1. Type 2 diabetes mellitus with stage 3b chronic kidney disease, with long-term current use of insulin ([facility]) - ICD9: 250.40, 585.3, V58.67, ICD10: E11.22, N18.32, Z79.4 (primary diagnosis) - Controlled - Continue current medications - Counseled on healthy diet and regular exercise - Discussed need for and benefit of weight loss. BMI 30.24 kg/(m^2) 2. Diabetic eye exam (HCC) - ICD9: V72.0, 250.00, ICD10: Z01.00, E11.9 - up to date. 3. Essential hypertension - ICD9: 401.9, ICD10: I10 - Controlled - Continue current medications - Recommend home blood pressure monitoring, to bring results to next visit - Encouraged sodium restriction, DASH or Mediterranean diet - Recommend regular aerobic exercise 4. Dyslipidemia - ICD9: 272.4, ICD10: E78.5 - Controlled - Continue current medications - Counseled on healthy diet and regular exercise 5. GERD without esophagitis - ICD9: 530.81, ICD10: K21.9 - Continue treatment with Prilosec 40 mg QD 6. Hypertensive chronic kidney disease with stage 1 through stage 4 chronic kidney disease, or unspecified chronic kidney disease - ICD9: 403.90, ICD10: I12.9 - improved control. No changes at this time. 7. Stage 3b chronic kidney disease (HCC) - ICD9: 585.3, ICD10: N18.32 - a per #6 8. Anemia of chronic disease - ICD9: 285.29, ICD10: D63.8 - has been stable. 9. Hypomagnesemia - ICD9: 275.2, ICD10: E83.42 - patient to trial Magnesium glycinate 100 mg every other day. 10. Smoker - ICD9: 305.1, ICD10: F17.200 - Cessation encouraged. - Counseling was given focusing on the harmful effects of this addiction especially given the patient's medical condition(s) which will be worsened because of the chemicals in tobacco. F/u in 4 months routine: check BMP, CBC, Lipid, A1c and Mg. F/u 8 months extensive Taye Horan MD documented in this encounterFisher-[facility]08-14-2023 Miscellaneous Notes* Telephone Encounter - Robert Bethea LPN - 10/31/2022 9:42 AM EDT CASA 07/08/22 NOV 11/08/22 * Telephone Encounter - Sara Caldwell - 10/31/2022 8:06 AM EDT Patient has been identified by name and date of : Yes Requested Prescriptions Pending Prescriptions Disp Refills metFORMIN (GLUCOPHAGE) 1,000 mg tablet 180 tablet 1 Sig: Take 1 tablet by mouth twice daily with meals. RX INSTRUCTIONS: Patient aware RX will be sent to pharmacy. No need to notify patient. Sara Ritter documented in this encounterFisher-Titus [facility] Center08-09-2023 History of Present illness Narrative* Evangelista Fisher LPN - 10/26/2022 12:40 PM EDT Scan on 10/24/2022 10:29 AM by Provider, ROWDY Fountain: X-ray documented in this encounterFisher-Titus [facility] Center08-02-2023 Instructions* Patient Instructions* Rachid Mane - 10/19/2022 1:59 PM EDT Diabetes Foot Care Instructions When you have diabetes, proper foot care is very important. Poor foot care may lead to amputation of a foot or leg. As a person with diabetes, you are more vulnerable to foot problems, because diabetes can damage your nerves and reduce blood flow to your feet. Here are some diabetes foot care tips to follow: Wash and Dry Your Feet Daily Use mild soaps Use warm water Pat your skin dry; do not rub. Thoroughly dry your feet. After washing, use lotion on your feet to prevent cracking. Do not put lotion between your toes. Examine Your Feet Each Day Check the tops and bottoms of your feet. Have someone else look at your feet if you cannot see them. Check for dry, cracked skin. Look for blisters, cuts, scratches, or other sores. Check for redness, increased warmth, or tenderness when touching any area of your feet. Check for ingrown toenails, corns, and calluses. If you get a blister or sore from your shoes, do not pop it. Apply a bandage and wear a differentpair of shoes. Take Care of Your Toenails Cut toenails after bathing, when they are soft. Cut toenails straight across and smooth with a nail file. Avoid cutting into the corners of toes. Do not cut cuticles. If you have neuropathy (or decreased sensation in your feet) a private sector executive should always cut your toenails. Be Careful When Exercising Walk and exercise in comfortable shoes. Do not exercise when you have open sores on your feet. Protect Your Feet With Shoes and Socks Never go barefoot. Always protect your feet by wearing shoes or hard-soled slippers or footwear. Avoid shoes with high heels and pointed toes. Avoid shoes that expose your toes or heels (such as open-toed shoes or sandals). These types of shoes increase your risk for injury and potential infections. Try on new footwear with the type of socks you usually wear. Do not wear new shoes for more than an hour at a time. Change your socks daily. Look and feel inside your shoes before putting them on to make sure there are no foreign objects orrough areas. Avoid tight socks. Wear natural-fiber socks (cotton, wool, or a cotton-wool blend). Wear special shoes if your health care provider recommends them. Wear shoes/boots that will protect your feet from various weather conditions (cold, moisture, etc.). Make sure your shoes fit properly. If you have neuropathy (nerve damage), you may not notice that your shoes are too tight. Perform the footwear test described below. Footwear Test Use this simple test to see if your shoes fit correctly: Stand on a piece of paper. (Make sure you are standing and not sitting, because your foot changes shape when you stand.) Trace the outline of your foot. Trace the outline of your shoe. Compare the tracings: Is the shoe too narrow? Is your foot crammed into the shoe? The shoe should be at least 1/2 inch longer than your longest toe and as wide as your foot. Proper Shoe Choices The following types of shoes are best for people with diabetes Closed toes and heels Leather uppers without a seam inside At least 1/2 inch extra space at the end of your longest toe Inside of shoe should be soft with no rough areas Outer sole should be made of stiff material Shoes should be at least as wide as your feet Tips for Foot Care in Diabetes Don't wait to treat a minor foot problem if you have diabetes. Follow your health care provider's guidelines and first aid guidelines. Report foot injuries and infections to your health care provider immediately. Check water temperature with your elbow, not your foot. Do not use a heating pad on your feet. Do not cross your legs. Do not self-treat your corns, calluses, or other foot problems. Go to your health care provider or private sector executive to treat these conditions. documented [facility] History of Present illness Narrative* Rachid Mane - 10/19/2022 1:53 PM EDT Subjective: This 86 year old male presents to clinic for diabetic foot check.. Patient admits to being diabetic for multiple years now. Patient +B/T/N in feet at this time. Patient -pain in legs whenwalking. No other pedal complaints at this time. No change in medications or medical history since last visit. PAIN EVALUATION No data found in the last 1 encounters. Hemoglobin A1C (%) Date Value 07/01/2022 5.7 11/02/2021 6.2 05/10/2021 6.4 12/29/2020 5.9 08/18/2020 6.6 02/21/2020 6.7 09/27/2019 6.7 PCP: Taye Horan MD PAST MEDICAL HISTORY Diagnosis Date Acute pancreatitis Advance directive discussed with patient 07/07/2021 Discussed 06/2021 Anemia of chronic disease 11/03/2019 Benign prostatic hyperplasia with lower urinary tract symptoms 09/03/2018 CKD (chronic kidney disease) stage 3, GFR 30-59 ml/min ([facility]) 10/01/2019 COVID-19 virus infection 03/23/2021 03/19/2021 Diabetic eye exam ([facility]) 05/07/2019 Last done: 04/30/2019 Diverticulosis 07/08/2022 Dyslipidemia 09/03/2018 Essential hypertension 09/03/2018 GERD without esophagitis 09/03/2018 History of colonic polyps 09/03/2018 Last colonoscopy 08/2017: Needs repeat 3 yrs History of COVID-19 03/23/2021 03/19/2021 History of kidney stones 09/03/2018 Hypomagnesemia 01/23/[address] 07/07/2021 DPA: Alices () Medicare annual wellness visit, subsequent 09/03/2018 Medicare Part B: 12/18/2001 Last done 09/03/2018 Portal hypertension (HCC) Sepsis ([facility]) 2016 Smoker 09/03/2018 Started at the age of 31 up to 1 cigar a day. Type 2 diabetes mellitus with stage 3 chronic kidney disease, with long-term current use of insulin([facility]) 09/03/2018 Current Outpatient Medications Medication Sig lovastatin (MEVACOR) 20 mg tablet Take 1 tablet by mouth daily at bedtime. blood sugar diagnostic (CONTOUR TEST STRIPS) test strip Test blood sugar(s) 4 times daily. Dx: Type2 DM - Controlled E11.9 Insulin: Yes insulin aspart U-100 (NOVOLOG FLEXPEN U-100 INSULIN) 100 unit/mL (3 mL) Inject 6 Units subcutaneously three times daily before meals. amLODIPine (NORVASC) 5 mg tablet Take 1 tablet by mouth once daily. one tab daily omeprazole (PRILOSEC) 40 mg capsule Take 1 capsule by mouth daily before breakfast. 1/2 hr before meal. metFORMIN (GLUCOPHAGE) 1,000 mg tablet Take 1 tablet by mouth twice daily with meals. insulin glargine (BASAGLAR KWIKPEN U-100 INSULIN) 100 unit/mL (3 mL) Inject 25 Units subcutaneouslydaily at bedtime. Magnesium Oxide 250 mg magnesium tab Take 1 tablet by mouth once daily. glimepiride (AMARYL) 1 mg tablet Take 1 tablet by mouth twice daily. Lancets (MICROLET LANCET) lancets 1 Each four times daily. Dx: Type 2 DM - Controlled E11.9 Insulin: Yes fenofibrate (LOFIBRA) 200 mg capsule Take 1 capsule by mouth daily before breakfast. Insulin [place], Disposable, (SURE COMFORT PEN NEEDLE) 32 gauge x 5/32 1 Each four times daily. Cholecalciferol, Vitamin D3, 50 mcg (2,000 unit) cap Take 1 capsule by mouth. ferrous sulfate 325 mg (65 mg iron) tablet Take 325 mg by mouth daily with breakfast. aspirin, enteric coated (ASPIRIN, ENTERIC COATED) 81 mg EC tablet Take 1 tablet by mouth once daily. No current facility-administered medications for this visit. ALLERGIES Allergen Reactions Dilaudid [Hydromorp* Mental Status Change Lisinopril Other: See Comments angioedema Magnesium Oxide Other: See Comments Loose stools, leg and foot pain Penicillins Unknown PAST SURGICAL HISTORY Procedure Laterality Date CHOLECYSTECTOMY HX 2013 COLONOSCOPY GEN ANES 02/20/2017 COLONOSCOPY SCREENING 06/21/2021 EGD EUS 06/23/2020 PAST SURGICAL HISTORY OF 2017 Left inguinal PAST SURGICAL HISTORY OF 2016 bilatreral cataracts FAMILY HISTORY Problem Relation Age of Onset Hypertension Father Stroke Father Coronary Artery Disease Sister Diabetes Sister COPD Sister Cancer Sister Lung Alzheimer's Disease No Family History Colon Cancer No Family History Prostate Cancer No Family History Breast Cancer No Family History Ovarian cancer No Family History Uterine Cancer No Family History Kidney Disease No Family History Seizures No Family History Thyroid No Family History Social History Tobacco Use Smoking status: Every Day Types: Cigars Smokeless tobacco: Never Tobacco comments: 1/day Vaping Use Vaping Use: Never used Substance Use Topics Alcohol use: Yes Comment: rare Drug use: Never REVIEW OF SYSTEMS GENERAL: Negative for Malaise, significant weight loss, fever RESPIRATORY: Negative for cough, wheezing and shortness of breath CARDIOVASCULAR: Negative for chest pain, leg swelling and palpitations GI: Negative for abdominal discomfort, blood in stools or black stools and change in bowel habits : Negative for dysuria, frequency and incontinence MUSCULOSKELETAL: Negative for joint pain or swelling, back pain, and muscle pain. SKIN: Negative for lesions, rash, and itching. HEMATOLOGY/LYMPHOLOGY Negative for prolonged bleeding, bruising easily, and swollen nodes. ENDOCRINE: Negative for cold or heat intolerance, polyuria, polydipsia and goiter. NEURO: negative The remainder of the review of systems is noncontributory. Objective: Patient presents to clinic ambulating in [facility] Constitutional: Pt is a well developed 86 year old male who is alert, oriented, cooperative and in no apparent distress. Eyes: Following during examination. No redness or drainage. Respiratory: RR normal and nonlabored. Even breathing. No evidence of distress. Psychology: Patient is engaged during conversation. Normal affect and mood. Does not appear depressed or anxious. Vasc: DP and PT pulses are palpable bilateral. CFT is less than 5 seconds bilateral. Skin temperature is warm to warm proximal to distal bilateral. There is mild edema or varicosities noted. Hair growth present. Neuro: Protective sensation is intact to the foot and toes when tested with the 5.07 SWM bilateral.Vibratory sensation is decreased at the hallux bilateral. + Significant neurological defecits. Derm: Inspection and palpation performed. Nails 1-5 b/l are normal in length and thickness. Skin isof normal turgor and texture. Hyperkeratosis noted to not present. NO ulcerations, scars, verruca or other lesions noted. Noninfected blister is noted to left leg. Ortho: Ankle joint DF is full with the knee extended and full with knee flexed. No pain or crepitusnoted. STJ, MTJ ROM are full and free of pain or crepitus. Muscle strength is 5/5 for dorsiflexors,plantarflexors, inverters, everters. Digital deformities include none. 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 Patient was seen and evaluated. 2. Patient was instructed on the continued importance of diabetic foot care along with proper diet and keeping their blood sugar under control to prevent complications. Instructions given both oral and written. 3. Patient was found to have noninfected blister to left lower leg just below the knee. This was the result of cryotherapy performed at dermatology office. I discussed lancing but I would like him tomonitor, treat with compression and make his optical engineering technician aware. 4. Call if any issues arise Rachid Mane DPM * Brenda Yanez LPN - 10/19/2022 1:34 PM EDT AMB ROOMING INTAKE FLOWSHEET DATA Patient presents with: Left Foot - Diabetic Foot Care, Established Patient Right Foot - Diabetic Foot Care, Established Patient Patient states sometimes he gets feeling he is starting to get blister on heel but nothing Is there. Brenda Yanez LPN documented in this [facility]08-01-2023 Miscellaneous Notes* Telephone Encounter - Leyla Black Ma - 10/18/2022 9:56 AM EDT Last office visit: 07/08/22 F/u scheduled: 11/08/22 Leyla Black Ma * Telephone Encounter - America Vásquez - 10/18/2022 9:32 AM EDT Patient has been identified by name and date of : Yes, Provider AUNG Patient phones for refill(s): Requested Prescriptions Pending Prescriptions Disp Refills lovastatin (MEVACOR) 20 mg tablet 90 tablet 1 Sig: Take 1 tablet by mouth daily at bedtime. Date of last office visit in primary care: 07/08/22 Last 2 Encounter Wt Readings: Date: Wt: 07/08/2022 102.1 kg (225 lb) 02/17/2022 104.8 kg (231 lb) Previous labs/tests for medication: Not applicable Please advise. Thank you. America Vásquez documented [facility]07-20-[facility]23 Miscellaneous Notes* Telephone Encounter - Sharif Payan MA - 10/06/2022 10:05 AM EDT Patient contacted and notified. Taken to medical records. Also rescheduled patient's appointment. Sharif Payan MA * Telephone Encounter - Judi Rice PA-C - 10/06/2022 8:27 AM EDT ready * Telephone Encounter - Luna Garcia LPN - 10/06/2022 8:05 AM EDT Patient calling asking for a handicap placard renewal rx, he has one. Patient would like to pick upwhen ready, his expires this month. Please advise documented in this encounter[facility]07-17-2023 History of Present illness Narrative* Marcelina Garcia, RN - 10/03/2022 3:49 PM EDT M Telephonic Outreach Provider Action/FYI Patient states: -he's doing well -his main concern and focus at this time is recently dx and CC location where to go -appreciates call Contacted for: Routine Telephonic Outreach Contact made with patient: Yes Patient identified by name and date of . Discussed care with patient Are you experiencing any new or worsening symptoms you need to talk about today? No Disease Specific Do you check your blood pressure at home? No Do you have new or worsening shortness of breath with activity? No Do you feel like you are dehydrated for any reason, including not being able to eat or drink normally, or having less urine/much darker urine than normal for you? No Do you check your daily weight at home? No Based on sales solutions associate, the following disposition is advised: No symptoms or symptoms present, not severe. Routed to: No Action Needed [place] Education Provided this Outreach: No Marcelina Garcia RN October 03, 2022 4:06 PM documented in this encounter[facility]07-10-2023 History of Present illness Narrative* Sharif Payan MA - 09/26/2022 4:52 PM EDT Scan on 09/17/2022 4:29 PM by External Provider, PALuis FelipeC: Consultation - Emergency Medicine Sharif Payan MA documented in this encounter[facility]06-05-2023 Miscellaneous Notes* Telephone Encounter - Madison Woodard RN - 08/22/2022 10:55 AM EDT [facility] called in and reports per Medicare Part B Pt needs a new Rx in every 6 month for DMtest strips. It needs to have frequency, ICD 10 code, and if they are insulin dependant. Patient has been identified by name and date of : Yes, Provider Dr Horan Date 08/22/22 Time 1057. Pharmacy phones for refill(s): Requested Prescriptions Pending Prescriptions Disp Refills blood sugar diagnostic (CONTOUR TEST STRIPS) test strip 200 Strip 3 Sig: Test blood sugar(s) 4 times daily. Dx: Type 2 DM - Controlled E11.9 Insulin: Yes Date of last office visit in primary care: 07/08/22 Future visit: 11/11/22 Last 2 Encounter Wt Readings: Date: Wt: 07/08/2022 102.1 kg (225 lb) 02/17/2022 104.8 kg (231 lb) Previous labs/tests for medication: Diabetes: Hemoglobin A1C (%) Date Value 07/01/2022 5.7 11/02/2021 6.2 05/10/2021 6.4 12/29/2020 5.9 Please advise. Thank you. Madison Woodard RN documented in this encounter[facility]06-05-2023 History of Present illness Narrative* Marcelina Garcia RN - 08/22/2022 7:52 AM EDT [facility] Telephonic Outreach Provider Lili/KATIE CKD Spoke w/ Mckenzie - request call back tomorrow/their not home at time of call. Contacted for: Routine Telephonic Outreach Contact made with patient: Yes Patient identified by name and date of . Discussed care with patient Are you experiencing any new or worsening symptoms you need to talk about today? No Disease Specific Do you check your blood pressure at home? No Do you have new or worsening shortness of breath with activity? No Do you have new or worsening cough? No Do you have new or worsening wheezing? No Do you need to use your rescue (Albuterol) inhaler or nebulizer more often than normal? No Based on sales solutions associate, the following disposition is advised: No symptoms or symptoms present, not severe. Routed to: No Action Needed [place] Education Provided this Outreach: No Not good time to talk. Marcelina Garcia RN August 22, 2022 3:05 PM documented in this encounter[facility]06-02-2023 History of Present illness Narrative* Marcelina Garcia RN - 08/19/2022 11:37 AM EDT [facility] Telephonic Outreach Provider Lili/KATIE Home # LVM Sent MCM Contacted for: Routine Telephonic Outreach Contact made with patient: No, left message. Marcelina Garcia RN August 19, 2022 11:37 AM documented in this encounterFisher[facility]05-01-2023 Miscellaneous Notes* Telephone Encounter - Gladis Adhikari RN - 07/18/2022 11:01 AM EDT Patient calling and requesting gastroenterology referral information to be faxed to Dr. Sainz's office. Faxed as requested. Gladis Adhikari RN documented in this encounter[facility]04-21-2023 Instructions* Patient Instructions* Taye Horan MD - 07/08/2022 2:43 PM EDT Please bring in copies of your power of personal injury attorney for health care and living will. Start taking over the counter magnesium Oxide 250 mg a day Decrease your evening Glargine from 30 units to 25 units. Please get labs and urine test done on or after 10/28/2022 prior to your next visit. documented in this encounter[facility]04-21-2023 History of Present illness Narrative* Taye Horan MD - 07/08/2022 1:51 PM EDT Images from the original note were not included. Medicare Yearly Visit Medical B eligibilty date 12/18/2001 Date of last exam 07/07/2021 PAST MEDICAL HISTORY PAST MEDICAL HISTORY Diagnosis Date Dyslipidemia 09/03/2018 Essential hypertension 09/03/2018 GERD without esophagitis 09/03/2018 History of colonic polyps 09/03/2018 Last colonoscopy 08/2017: Needs repeat 3 yrs History of kidney stones 09/03/2018 Smoker 09/03/2018 Started at the age of 31 up to 1 cigar a day. Type 2 diabetes mellitus without complication, with long-term current use of insulin ([facility]) 09/03/2018 PAST SURGICAL HISTORY PAST SURGICAL HISTORY Procedure Laterality Date CHOLECYSTECTOMY HX 2013 PAST SURGICAL HISTORY OF 2017 Left inguinal PAST SURGICAL HISTORY OF 2016 bilatreral cataracts Dilaudid [Hydromorphone (Bulk)]; Lisinopril; Penicillins Medications reviewed: Yes FAMILY HISTORY No family history on file. SOCIAL HISTORY: Social History Socioeconomic History Marital status: Spouse name: Not on file Number of children: Not on file Years of education: Not on file Highest education level: Not on file Social Needs Financial resource strain: Not on file Food insecurity - worry: Not on file Food insecurity - inability: Not on file Transportation needs - medical: Not on file Transportation needs - non-medical: Not on file Occupational History Not on file Tobacco Use Smoking status: Current Every Day Smoker Types: Cigars Smokeless tobacco: Never Used Tobacco comment: 1/day Substance and Sexual Activity Alcohol use: Yes Comment: rare Drug use: Not on file Sexual activity: Not on file Other Topics Concerns: Not on file Social History Narrative Not on file Juan M denies regular aerobic exercise. He watches his diet for sodium, low fat and low cholesterolall of the time. List of current specialists seen: Seeing urology and optho End of Live Planning discussed including patients advanced directive wishes: Yes I am willing to follow Juan M's advanced directives. PHQ-2 / Depression screen Depression Screening 09/03/2018 07/07/2021 PHQ-2 Score 0 0 Depression screening tool completed and reviewed. Based on score and interview, patient is not at risk for depression. Screening tool discussed with patient, and I recommended no further interventionat this time. Functional Ability/Safety Screen 1. Was the patient's timed Up and Go test unsteady or longer than 30 seconds? No 2. Does the patient need help with the phone, transportation, shopping,preparing meals, housework, laundry, medications or managing money? No 3. Does your home have rugs in the hallway, lack of grab bars in the bathroom(Y), lack of handrailson the stairs or have poor lighting? No Hearing Evaluation: hard of hearing PHYSICAL EXAM BP 114/68 (BP Site: Right Arm, BP Position: Sitting, BP Cuff Size: Regular Adult) Pulse 88 Resp16 Ht 182.9 cm (6') Wt 102.1 kg (225 lb) BMI 30.52 kg/m Alert and oriented X 3: YES Body mass index is 30.52 kg/m . Visual acuity: seeing optho See below ASSESSMENT/PLAN: 86 year old male The following prevention plan was discussed during the office visit and provided to the patient: See below Taye Horan MD Chief Complaint Patient presents with: Medicare Wellness Exam HPI Juan M Rodriguez is a 86 year old male who presents here today for Medicare Annual Visit. Patient with Hx pf HTN, dyslipidemia, BPH, DM 2, GERD, CKD, smoker, anemia of chronic disease, BPH as well as those reviewed and addressed below and in ROS Patient still noting the episodes of diarrhea. Has been taking imodium and helps but also noting nausea at times. Office visit 6 month follow up 11/10/2021 Patient with Hx pf HTN, dyslipidemia, BPH, DM 2, GERD, CKD, smoker, anemia of chronic disease, BPH as well as those reviewed and addressed below and in ROS Patient was having pain in his feet and occasional calf cramps. He thought it was worse with being on the magnesium and when he looked up the magnesium he found it could be a cause and when he stopped it the symptoms resolved and his diarrhea/loose stools decreased. Patient has seen Podiatry. Patient has been doing well. Was off his iron for about 1-2 months and just got back on it. Past medical history, appointments, medications, allergies reviewed. Previous Medical History PAST MEDICAL HISTORY Diagnosis Date Acute pancreatitis Advance directive discussed with patient 07/07/2021 Discussed 06/2021 Anemia of chronic disease 11/03/2019 Benign prostatic hyperplasia with lower urinary tract symptoms 09/03/2018 CKD (chronic kidney disease) stage 3, GFR 30-59 ml/min ([facility]) 10/01/2019 COVID-19 virus infection 03/23/2021 03/19/2021 Diabetic eye exam (HCC) 05/07/2019 Last done: 04/30/2019 Dyslipidemia 09/03/2018 Essential hypertension 09/03/2018 GERD without esophagitis 09/03/2018 History of colonic polyps 09/03/2018 Last colonoscopy 08/2017: Needs repeat 3 yrs History of COVID-19 03/23/2021 03/19/2021 History of kidney stones 09/03/2018 Hypomagnesemia 01/23/[address] 07/07/2021 DPA: Doloras () Medicare annual wellness visit, subsequent 09/03/2018 Medicare Part B: 12/18/2001 Last done 09/03/2018 Portal hypertension (HCC) Sepsis (HCC) 2016 Smoker 09/03/2018 Started at the age of 31 up to 1 cigar a day. Type 2 diabetes mellitus with stage 3 chronic kidney disease, with long-term current use of insulin(HCC) 09/03/2018 Previous Surgical History PAST SURGICAL HISTORY Procedure Laterality Date CHOLECYSTECTOMY HX 2013 COLONOSCOPY GEN ANES 02/20/2017 COLONOSCOPY SCREENING 06/21/2021 EGD EUS 06/23/2020 PAST SURGICAL HISTORY OF 2017 Left inguinal PAST SURGICAL HISTORY OF 2016 bilatreral cataracts Family History FAMILY HISTORY Problem Relation Age of Onset Hypertension Father Stroke Father Coronary Artery Disease Sister Diabetes Sister COPD Sister Cancer Sister Lung Alzheimer's Disease No Family History Colon Cancer No Family History Prostate Cancer No Family History Breast Cancer No Family History Ovarian cancer No Family History Uterine Cancer No Family History Kidney Disease No Family History Seizures No Family History Thyroid No Family History Patient Allergies ALLERGIES Allergen Reactions Dilaudid [Hydromorp* Mental Status Change Lisinopril Other: See Comments angioedema Magnesium Oxide Other: See Comments Loose stools, leg and foot pain Penicillins Unknown Current Medications Current Outpatient Medications on File Prior to Visit Medication Sig glimepiride (AMARYL) 1 mg tablet Take 1 tablet by mouth twice daily. insulin glargine (BASAGLAR KWIKPEN U-100 INSULIN) 100 unit/mL (3 mL) Inject 30 Units subcutaneouslydaily at bedtime. Lancets (MICROLET LANCET) lancets 1 Each four times daily. Dx: Type 2 DM - Controlled E11.9 Insulin: Yes lovastatin (MEVACOR) 20 mg tablet Take 1 tablet by mouth daily at bedtime. insulin aspart U-100 (NOVOLOG FLEXPEN U-100 INSULIN) 100 unit/mL (3 mL) Inject 6 Units subcutaneously three times daily before meals. amLODIPine (NORVASC) 5 mg tablet Take 1 tablet by mouth once daily. one tab daily blood sugar diagnostic (CONTOUR TEST STRIPS) test strip Test blood sugar(s) 4 times daily. Dx: Type2 DM - Controlled E11.9 Insulin: Yes omeprazole (PRILOSEC) 40 mg capsule Take 1 capsule by mouth daily before breakfast. 1/2 hr before meal. metFORMIN (GLUCOPHAGE) 1,000 mg tablet Take 1 tablet by mouth twice daily with meals. fenofibrate (LOFIBRA) 200 mg capsule Take 1 capsule by mouth daily before breakfast. Insulin [place], Disposable, (SURE COMFORT PEN NEEDLE) 32 gauge x 5/32 1 Each four times daily. loratadine (CLARITIN) 10 mg tablet Take 1 tablet by mouth once daily. Tadalafil (CIALIS) 20 mg tab(s) Take 1 tablet by mouth once daily. As needed. (Patient not taking: Reported on 10/11/2021 ) Cholecalciferol, Vitamin D3, 50 mcg (2,000 unit) cap Take 1 capsule by mouth. ferrous sulfate 325 mg (65 mg iron) tablet Take 325 mg by mouth daily with breakfast. aspirin, enteric coated (ASPIRIN, ENTERIC COATED) 81 mg EC tablet Take 1 tablet by mouth once daily. No current facility-administered medications on file prior to visit. Social History Social History Tobacco Use Smoking status: Every Day Types: Cigars Smokeless tobacco: Never Tobacco comments: 1/day Vaping Use Vaping Use: Never used Substance Use Topics Alcohol use: Yes Comment: rare Drug use: Never Review of Symptoms REVIEW OF SYSTEMS GENERAL: No weight loss, malaise or fevers HEENT: Negative for frequent or significant headaches, No changes in hearing or vision, no nose bleeds or other nasal problems NECK: Negative for lumps, goiter, pain and significant neck swelling RESPIRATORY: Negative for cough, hemoptysis, wheezing, COPD, dyspnea or shortness of breath CARDIOVASCULAR: Negative for chest pain, leg swelling, hypertension, CHF or palpitations GI: No vomiting, No heartburn or reflux symptoms, and no blood : No history of dysuria, blood MUSCULOSKELETAL: Negative for new joint pain or swelling, back pain or muscle pain. Has been havingpain in his neck at times. SKIN: Negative for lesions, rash, and itching PSYCH: Negative for sleep disturbance, mood disorder and recent psychosocial stressors HEMATOLOGY/LYMPHOLOGY: Negative for prolonged bleeding, bruising easily or swollen nodes ENDOCRINE: Negative for cold or heat intolerance, symptoms of low BS's NEURO: No history of headaches, syncope, paralysis, seizures or tremors EXAM: BP 114/68 (BP Site: Right Arm, BP Position: Sitting, BP Cuff Size: Regular Adult) Pulse 88 Resp16 Ht 182.9 cm (6') Wt 102.1 kg (225 lb) BMI 30.52 kg/m Last 4 Encounter Wt Readings: Date: Wt: 07/08/2022 102.1 kg (225 lb) 02/17/2022 104.8 kg (231 lb) 01/10/2022 103.9 kg (229 lb) 11/29/2021 103.9 kg (229 lb) General Appearance: Well appearing, alert, in no acute distress, well-hydrated, well nourished. andOverweight. Skin: Skin color, texture, turgor normal, no suspicious rashes or lesions. Head: Normocephalic, no masses, lesions, tenderness or abnormalities. Eyes: Anicteric sclera. Pupils are equally round and reactive to light. Extraocular movements are intact. . Ears: External ears TM's normal, canals clear. Nose/Sinuses: Nares normal, septum midline, mucosa normal, no drainage or sinus tenderness. Oropharynx: Lips, mucosa, and tongue normal, teeth and gums normal, oropharynx normal. Neck: Supple, no adenopathy; thyroid symmetric, normal size, no bruits. Lungs: Lungs clear to auscultation. No wheezing, rhonchi, rales.. Heart: RRR without murmur, gallop, or rubs. No ectopy. Abdomen: Normal abdominal exam, Abdomen soft, non-tender. Bowel sounds normal. No masses, organomegaly. Extremities: No deformities, edema, skin discoloration, clubbing or cyanosis. Good capillary refill. . Musculoskeletal: Muscular strength intact, No joint swelling, deformity, or tenderness. Peripheral Pulses: Normal. Neurologic: Gait normal. Reflexes normal and symmetric. Sensation to light touch and crainal nerves2-12 intact.. Genitalia: Normal, Penis normal. No urethral discharge. Scrotum normal to palpation. No hernia.. Diabetic Foot Exam: Feet: Shoes and socks removed, no deformities, ulcers, calluses, normal distal pulses, sensitive to10 gm microfilament, and vibratory exam within normal limits on the left and absent on the right Skin: warm, dry, and no callouses or ulcer Vascular Pulses: Normal SEMMES-DONALD MONOFILAMENT TESTING Left Foot Right Foot Dorsal Surface Intact Dorsal Surface Intact Plantar Surface Intact Plantar Surface Intact Health Maintenance List ADVANCE DIRECTIVE DISCUSSION due on 03/20/2022 DEPRESSION ASSESSMENT Never done DIABETIC FOOT EXAM due on 10/11/2022 HBA1C due on 12/31/2022 DILATED RETINAL EXAM due on 03/29/2023 LDL CHOLESTEROL due on 07/02/2023 URINE ALBUMIN:CREATININE RATIO due on 07/03/2023 DTAP,TDAP,TD(3 - Td or Tdap) due on 02/18/2032 INFLUENZA Completed SHINGRIX VACCINE Completed COVID-19 VACCINE Completed PNEUMOCOCCAL: 65+ Completed Data reviewed Component Latest Ref Rng & Units 08/04/2021 11/02/2021 07/01/2022 07/02/2022 WBC 3.70 - 11.00 k/uL 9.26 8.83 RBC 4.20 - 6.00 m/uL 4.34 4.36 Hemoglobin 13.0 - 17.0 g/dL 11.3 (L) 11.5 (L) Hematocrit 39.0 - 51.0 % 36.0 (L) 36.3 (L) MCV 80.0 - 100.0 fL 82.9 83.3 MCH 26.0 - 34.0 pg 26.0 26.4 MCHC 30.5 - 36.0 g/dL 31.4 31.7 RDW-CV 11.5 - 15.0 % 16.1 (H) 16.7 (H) Platelet Count 150 - 400 k/uL 383 424 (H) MPV 9.0 - 12.7 fL 10.8 10.6 Neut% % 55.9 53.2 Abs Neut (ANC) 1.45 - 7.50 k/uL 5.18 4.70 Lymph% % 33.2 33.3 Abs Lymph 1.00 - 4.00 k/uL 3.07 2.94 Schleicher% % 6.6 8.6 Abs Schleicher <0.87 k/uL 0.61 0.76 Eosin% % 3.0 3.9 Abs Eosin <0.46 k/uL 0.28 0.34 Baso% % 0.5 0.3 Abs Baso <0.11 k/uL 0.05 0.03 Immature Gran % % 0.8 0.7 IMMATURE GRANS (ABS) <0.10 k/uL 0.07 0.06 NRBC /100 WBC 0.0 0.0 Absolute nRBC <0.01 k/uL <0.01 <0.01 DTYPE Auto Auto Protein, Total 6.3 - 8.0 g/dL 6.8 6.8 Albumin 3.9 - 4.9 g/dL 4.1 3.9 Calcium 8.5 - 10.2 mg/dL 9.5 10.3 (H) Bilirubin, Total 0.2 - 1.3 mg/dL 0.3 0.3 Alkaline Phosphatase 38 - 113 U/L 41 30 (L) AST 14 - 40 U/L 38 32 ALT 10 - 54 U/L 37 29 Glucose 74 - 99 mg/dL 77 82 BUN 9 - 24 mg/dL 20 16 Creatinine 0.73 - 1.22 mg/dL 1.52 (H) 1.63 (H) Sodium 136 - 144 mmol/L 144 139 Potassium 3.7 - 5.1 mmol/L 4.1 4.3 Chloride 97 - 105 mmol/L 107 (H) 102 CO2 22 - 30 mmol/L 25 26 Anion Gap 9 - 18 mmol/L 12 11 eGFR >=60 mL/min/1.73m 45 (L) 41 (L) Color Yellow Light Yellow Light Yellow Clarity Clear Clear Clear Glucose, Urine Trace, Negative Negative Negative Bilirubin, Urine Negative Negative Negative Ketones, Urine Trace, Negative Negative Negative Specific [place], Ur 1.005 - 1.030 1.018 1.019 Hemoglobin/Blood,Ur Negative, Trace Negative Negative pH, Urine 5.0 - 8.0 6.0 5.5 Protein, Urine Trace, Negative Negative Negative Urobilinogen Negative Negative Negative Nitrites Negative Negative Negative Leukest Negative, 25 Kelly/uL Negative Negative WBC, Urine 0-5 /HPF 0-5 /HPF 0-5 /HPF RBC, Urine 0-3 /HPF 0-3 /HPF 0-3 /HPF Total Cholesterol, Nonfasting <200 mg/dL 120 122 Triglycerides, Nonfasting <150 mg/dL 95 181 (H) HDL Cholesterol, Nonfasting >39 mg/dL 51 41 LDL Cholesterol, Nonfasting <100 mg/dL 50 45 Non HDL Cholesterol, Nonfasting <130 mg/dL 69 81 VLDL Cholesterol, Nonfasting <30 mg/dL 19 36 (H) Total Chol/HDL Ratio, Nonfasting <5.10 mg/dL 2.35 2.98 LDL/HDL Ratio, Nonfasting <2.54 mg/dL 0.98 1.10 Creatinine, Ur Random (UCRR) 20.0 - 300.0 mg/dL 115.7 124.2 Albumin, Urine Random mg/L <12.0 <12.0 Albumin/Creat Ratio <30 mg/g <10 <10 Hemoglobin A1C 4.3 - 5.6 % 6.2 (H) 5.7 (H) Estimated Average Glucose mg/dL 131 117 Magnesium 1.7 - 2.3 mg/dL 1.6 (L) 1.4 (L) 1.6 (L) Vitamin B12 232 - 1,245 pg/mL 431 574 A/P ASSESSMENT/PLAN: 1. Medicare annual wellness visit, subsequent - ICD9: V70.0, ICD10: Z00.00 (primary diagnosis) - Counseled on healthy diet and regular exercise - Patient was counseled [id number] by myself (the billing provider) for the following immunizations and vaccine components, including side effects: Pneumococcal . Patient consents for immunization and understands risks and benefits. A VIS sheet on each immunization was given to the patient. - Follow up for annual exam in one year 2. Type 2 diabetes mellitus with stage 3b chronic kidney disease, with long-term current use of insulin ([facility]) - ICD9: 250.40, 585.3, V58.67, ICD10: E11.22, N18.32, Z79.4 - Controlled - Continue current medications - Decrease Insulin glargine (Lantus/Basaglar/Toujeo) to 25 units in the evening. - Counseled on healthy diet and regular exercise - Discussed need for and benefit of weight loss. BMI 30.52 kg/(m^2) 3. Diabetic eye exam (HCC) - ICD9: V72.0, 250.00, ICD10: Z01.00, E11.9 - up to date 4. Dyslipidemia - ICD9: 272.4, ICD10: E78.5 - good control - Encouraged following a low fat, low cholesterol diet. - Discussed the benefits of regular aerobic exercise and weight loss. - Encouraged following a low carbohydrate, healthy oil intake diet. - Continue current therapy. 5. Essential hypertension - ICD9: 401.9, ICD10: I10 - good control - Continue current medication(s) - Recommended regular aerobic exercise. - Recommend home blood pressure monitoring, to bring results in on next visit - Goal of BP <130/80 6. Hypertensive chronic kidney disease with stage 1 through stage 4 chronic kidney disease, or unspecified chronic kidney disease - ICD9: 403.90, ICD10: I12.9 - good control - Continue current medication(s) - Recommended regular aerobic exercise. - Recommend home blood pressure monitoring, to bring results in on next visit - Goal of BP <130/80 7. Stage 3b chronic kidney disease (HCC) - ICD9: 585.3, ICD10: N18.32 - cont current Tx. 8. Anemia of chronic disease - ICD9: 285.29, ICD10: D63.8 - stable no changes. 9. GERD without esophagitis - ICD9: 530.81, ICD10: K21.9 Cont - OMEPRAZOLE 40 MG CAPSULE,DELAYED RELEASE 10. Hypomagnesemia - ICD9: 275.2, ICD10: E83.42 - patient to start OTC Mag Oxide 250 mg a day. 11. Smoker - ICD9: 305.1, ICD10: F17.200 - Cessation encouraged. - Counseling was given focusing on the harmful effects of this addiction especially given the patient's medical condition(s) which will be worsened because of the chemicals in tobacco. 12. Benign prostatic hyperplasia with lower urinary tract symptoms, symptom details unspecified - ICD9: 600.01, ICD10: N40.1 - stable 13. Advance directive discussed with patient - ICD9: V65.49, ICD10: Z71.89 - patient to bring in copies 14. Need for vaccination - ICD9: V05.9, ICD10: Z23 - PNEUMOCOCCAL VACCINE (PREVNAR 20) 15. Nausea - ICD9: 787.02, ICD10: R11.0 - CONSULT TO GASTROENTEROLOGY: Dr. Sainz 16. Diarrhea, unspecified type - ICD9: 787.91, ICD10: R19.7 - CONSULT TO GASTROENTEROLOGY 17. Neck pain - ICD9: 723.1, ICD10: M54.2 - HEP sheet provided. Requested Prescriptions Signed Prescriptions Disp Refills insulin aspart U-100 (NOVOLOG FLEXPEN U-100 INSULIN) 100 unit/mL (3 mL) 5 Each 1 Sig: Inject 6 Units subcutaneously three times daily before meals. amLODIPine (NORVASC) 5 mg tablet 90 tablet 1 Sig: Take 1 tablet by mouth once daily. one tab daily omeprazole (PRILOSEC) 40 mg capsule 90 capsule 1 Sig: Take 1 capsule by mouth daily before breakfast. 1/2 hr before meal. metFORMIN (GLUCOPHAGE) 1,000 mg tablet 180 tablet 1 Sig: Take 1 tablet by mouth twice daily with meals. insulin glargine (BASAGLAR KWIKPEN U-100 INSULIN) 100 unit/mL (3 mL) 5 Each 5 Sig: Inject 25 Units subcutaneously daily at bedtime. Magnesium Oxide 250 mg magnesium tab Sig: Take 1 tablet by mouth once daily. I spent a total of 40 minutes on the date of the service which included preparing to see the patient, [id number] patient care, completing clinical documentation, performing a medically appropriate examination, counseling and educating the patient/family/caregiver and ordering medications, tests, or procedures. Taye Horan MD documented in [place] encounterJason [place]ille [id number] History of Present illness Narrative* Marcelina Garcia RN - 06/28/2022 9:12 PM EDT [facility] Provider Action/FYI: CKD Patient states: -he's doing well -would like to see his PCP every 4 mos to help manage his DM -he likes regular checkups to help maintain his health -d/t CC canceling his last pcp appt, it's been 7 mos since last seen by PCP Contact made with patient: Yes Patient identified by name and . Discussed care with patient It s nice talking to you again. As a reminder, this is our bi-weekly check-in where I will be asking you questions about your health. This will only take a few minutes of your time. Is this a good time? Yes Symptoms What Chronic Disease(s) does the patient have: CKD Do you check your blood pressures at home? No Do you have new or worse shortness of breath with activity? No Do you feel like you are dehydrated for any reason, including not being able to eat or drink normally, or having less urine/much darker urine than normal for you? No Do you check your daily weight at home? No Are you having any other symptoms that your PCP needs to know about? No Symptoms: NA Symptom Escalation [place] Education Ordered -: No The patient required an escalation for symptom(s)? No Medications Do you have any questions about taking your medication or which medications you should be on? No Do you need any medication refills at this time, including any of the medications you might take only when needed? No Social We would like to make sure you have what you need so that your basic needs are met- including your personal safety, food, housing, transportation and medications? Would you like to speak with a social work presentation team member to help give you support for any of these needs? No It can be normal to feel anxious or down during a time like this. Would you like to talk to a mental health professional about how you have been feeling? No Closing Thank you for taking the time to talk with me today. We want to work with you to ensure that we arekeeping your medical condition(s) well-controlled and to keep you healthy and out of the doctor's office or hospital. It s also not too late for me to sign you up for automated weekly questionnaires through [employer]. This is an easy way for us to stay connected each week. Are you interested? No, I understand. We can always sign you up in the future if you change your mind. Just as a reminder, will continue to call you every other week to check in on your health. Our calls should take 10-15 minutes or less. Remember, if you have concerns in between our calls, please call your PCP's office right away. Thank you. Enter next patient outreach date for two weeks on the same day of the week as today in the Track PtOutreach and End outreach. documented in this [facility] Miscellaneous Notes* Telephone Encounter - Taye Horan MD - 06/06/2022 9:04 PM EDT The following approved medication requests have been transmitted electronically. Requested Prescriptions Signed Prescriptions Disp Refills glimepiride (AMARYL) 1 mg tablet 180 tablet 1 Sig: Take 1 tablet by mouth twice daily. Authorizing Provider: TAYE HORAN MD * Telephone Encounter - Hyun Dave RN - 06/06/2022 9:32 AM EDT Patient has been identified by name and date of : Yes, Hyun Dave RN Date 06/06/2022 Time 9:33 am Patient phones for refill(s): Requested Prescriptions Pending Prescriptions Disp Refills glimepiride (AMARYL) 1 mg tablet 180 tablet 1 Sig: Take 1 tablet by mouth twice daily. Date of last office visit with pcp: 02/17/2022 Future appt: 07/08/2022 Last 2 Encounter Wt Readings: Date: Wt: 02/17/2022 104.8 kg (231 lb) 01/10/2022 103.9 kg (229 lb) Previous labs/tests for medication: Diabetes: Hemoglobin A1C (%) Date Value 11/02/2021 6.2 05/10/2021 6.4 12/29/2020 5.9 Blood Pressure: BUN (mg/dL) Date Value 11/02/2021 20 05/10/2021 13 Sodium (mmol/L) Date Value 11/02/2021 144 05/10/2021 139 Last 1 Encounter BP Readings: Date: BP: 02/17/2022 140/72 Liver Function: ALT (U/L) Date Value 11/02/2021 37 12/29/2020 31 AST (U/L) Date Value 11/02/2021 38 12/29/2020 31 Please advise. Thank you. Hyun Dave RN documented in this encounterFisher[facility]02-27-2023 Miscellaneous Notes* Telephone Encounter - Taye Horan MD - 05/16/2022 5:26 PM EST The following approved medication requests have been transmitted electronically. Requested Prescriptions Signed Prescriptions Disp Refills insulin glargine (BASAGLAR KWIKPEN U-100 INSULIN) 100 unit/mL (3 mL) 5 Each 5 Sig: Inject 30 Units subcutaneously daily at bedtime. Authorizing Provider: TAYE HORAN MD * Telephone Encounter - Sharif Payan MA - 05/16/2022 10:24 AM EST Patient has been identified by name and date of : Yes Requested Prescriptions Pending Prescriptions Disp Refills insulin glargine (BASAGLAR KWIKPEN U-100 INSULIN) 100 unit/mL (3 mL) 5 Each 5 Sig: Inject 30 Units subcutaneously daily at bedtime. RX INSTRUCTIONS: Patient aware RX will be sent to pharmacy. No need to notify patient. Sharif Payan MA Casa: 10/2021 Nov: 06/2022 Last refill; 07/2021 * Telephone Encounter - Radha Ritter - 05/16/2022 8:49 AM EST Pharmacy verified in Epic Patient has been identified by name and date of : Yes Patient aware RX will be sent to pharmacy. No need to notify patient. Patient phones for refill(s): Requested Prescriptions Pending Prescriptions Disp Refills insulin glargine (BASAGLAR KWIKPEN U-100 INSULIN) 100 unit/mL (3 mL) 5 Each 5 Sig: Inject 30 Units subcutaneously daily at bedtime. Date of last office visit : 02/17/2022 Date of next office visit : 07/08/2022 Last 2 Encounter Wt Readings: Date: Wt: 02/17/2022 104.8 kg (231 lb) 01/10/2022 103.9 kg (229 lb) Please advise. Radha Alfaro Pss documented in this encounterFisher[facility]02-20-2023 History of Present illness Narrative* Marcelina Garcia RN - 05/09/2022 7:58 PM EST [facility] Provider Action/FYI: Spoke w/ Mckenzie validated caregiver for patient, she states: -patient doing well, no concerns, meds good Verified upcoming appts and dates Contact made with patient: Yes Patient identified by name and . Discussed care with patient It s nice talking to you again. As a reminder, this is our bi-weekly check-in where I will be asking you questions about your health. This will only take a few minutes of your time. Is this a good time? Yes Symptoms What Chronic Disease(s) does the patient have: CKD Do you check your blood pressures at home? No Do you have new or worse shortness of breath with activity? No Do you feel like you are dehydrated for any reason, including not being able to eat or drink normally, or having less urine/much darker urine than normal for you? No Do you check your daily weight at home? No Are you having any other symptoms that your PCP needs to know about? No Symptoms: n/a Symptom Escalation [place] Education Ordered -: No The patient required an escalation for symptom(s)? No Medications Do you have any questions about taking your medication or which medications you should be on? No Do you need any medication refills at this time, including any of the medications you might take only when needed? No Social We would like to make sure you have what you need so that your basic needs are met- including your personal safety, food, housing, transportation and medications? Would you like to speak with a social work presentation team member to help give you support for any of these needs? No It can be normal to feel anxious or down during a time like this. Would you like to talk to a mental health professional about how you have been feeling? No Closing Thank you for taking the time to talk with me today. We want to work with you to ensure that we arekeeping your medical condition(s) well-controlled and to keep you healthy and out of the doctor's office or hospital. It s also not too late for me to sign you up for automated weekly questionnaires through [employer]. This is an easy way for us to stay connected each week. Are you interested? No, I understand. We can always sign you up in the future if you change your mind. Just as a reminder, will continue to call you every other week to check in on your health. Our calls should take 10-15 minutes or less. Remember, if you have concerns in between our calls, please call your PCP's office right away. Thank you. Enter next patient outreach date for two weeks on the same day of the week as today in the Track PtOutreach and End outreach. documented in this encounterFisher[facility]02-[facility]-20[facility] History of Present illness Narrative* Marcelina Garcia RN - 04/21/2022 10:07 AM EST [facility] Provider Action/FYI: CKD Patient having trouble w/ speaker for phone, patient YOMBA SHOSHONE. Mckenzie, validated family member caretaker assisted w/ call. Patient doing well, no concerns. Verified upcoming PCP Appt/Mon05/20/22. Contact made with patient: Yes Patient identified by name and . Discussed care with patient It s nice talking to you again. As a reminder, this is our bi-weekly check-in where I will be asking you questions about your health. This will only take a few minutes of your time. Is this a good time? Yes Symptoms What Chronic Disease(s) does the patient have: CKD Do you check your blood pressures at home? No Do you have new or worse shortness of breath with activity? No Do you feel like you are dehydrated for any reason, including not being able to eat or drink normally, or having less urine/much darker urine than normal for you? No Do you check your daily weight at home? No Are you having any other symptoms that your PCP needs to know about? No Symptoms: n/a Symptom Escalation IS[place] Education Ordered -: No The patient required an escalation for symptom(s)? No Medications Do you have any questions about taking your medication or which medications you should be on? No Do you need any medication refills at this time, including any of the medications you might take only when needed? No Social We would like to make sure you have what you need so that your basic needs are met- including your personal safety, food, housing, transportation and medications? Would you like to speak with a social work presentation team member to help give you support for any of these needs? No It can be normal to feel anxious or down during a time like this. Would you like to talk to a mental health professional about how you have been feeling? No Closing Thank you for taking the time to talk with me today. We want to work with you to ensure that we arekeeping your medical condition(s) well-controlled and to keep you healthy and out of the doctor's office or hospital. It s also not too late for me to sign you up for automated weekly questionnaires through [employer]. This is an easy way for us to stay connected each week. Are you interested? No, I understand. We can always sign you up in the future if you change your mind. Just as a reminder, will continue to call you every other week to check in on your health. Our calls should take 10-15 minutes or less. Remember, if you have concerns in between our calls, please call your PCP's office right away. Thank you. Enter next patient outreach date for two weeks on the same day of the week as today in the Track PtOutreach and End outreach. documented in this encounterFisher[facility]01-27-2023 Miscellaneous Notes* Telephone Encounter - Martha Naranjo RN - 04/15/2022 11:14 AM EST Last Office Visit: 02/17/2022 Future Office Visit: 05/20/2022 Requested Prescriptions Pending Prescriptions Disp Refills Lancets (MICROLET LANCET) lancets 200 Each 3 Si Each four times daily. Dx: Type 2 DM - Controlled E11.9 Insulin: Yes Date of Last Labs: 11/02/2021 documented in this encounterFisher-[facility]01-26-2023 Miscellaneous Notes* Telephone Encounter - Radha Hang - 04/14/2022 8:57 AM EST Pts called back. States it is the Lovastatin. She did not know what the other medication was. Patient has been identified by name and date of : Yes Last office visit in this department: 02/17/2022 RX INSTRUCTIONS: Patient aware RX will be sent to pharmacy. No need to notify patient. Patient phones requesting refills as follows: Requested Prescriptions Pending Prescriptions Disp Refills lovastatin (MEVACOR) 20 mg tablet 90 tablet 1 Sig: Take 1 tablet by mouth daily at bedtime. Please review and advise. Radha Mauricio * Telephone Encounter - Sharif Payan MA - 04/14/2022 8:45 AM EST Left message for patient to contact office. We do not have have Crestor listed. We show lovastatin. Please verify with patient. Sharif Payan MA * Telephone Encounter - Meron Finney - 04/14/2022 8:25 AM EST Patient has been identified by name and date of : Yes Rosuvastatin (not on list). RX INSTRUCTIONS: Patient aware RX will be sent to pharmacy. No need to notify patient. Meron Finney documented in this encounterFisher[facility]01-17-2023 History of Present illness Narrative* Marcelina Garcia RN - 04/05/2022 4:09 PM EST [facility] Provider Action/FYI: Home/Mobile LVM Sent MCM Contact made with patient: No - Left message Julio Cesar my name is Marcelina Garcia RN your Heat Seal Operator from the [facility] I am calling today for your bi-weekly check in. I am sorry I missed your call. I will reach out to you again tomorrow. (if the third call I will reach out to you again next week) Enter next patient outreach date for the following business day using the Track Pt Outreach. End outreach. documented in this encounter[facility]12-30-2022 History of Present illness Narrative* Marcelina Garcia RN - 03/18/2022 9:16 AM EST [facility] Provider Action/FYI: CKD Home/Mobile #: LVM Sent [facility] Contact made with patient: No - Left message Julio Cesar my name is Marcelina Garcia RN your Heat Seal Operator from the [facility] I am calling today for your bi-weekly check in. I am sorry I missed your call. I will reach out to you again tomorrow. (if the third call I will reach out to you again next week) Enter next patient outreach date for the following business day using the Track Pt Outreach. End outreach. documented in this encounterFisher[facility]12-22-2022 Miscellaneous Notes* Telephone Encounter - Taye Horan MD - 03/10/2022 9:52 AM EST The following approved medication requests have been transmitted electronically. Requested Prescriptions Signed Prescriptions Disp Refills insulin aspart U-100 (NOVOLOG FLEXPEN U-100 INSULIN) 100 unit/mL (3 mL) 5 Each 1 Sig: Inject 6 Units subcutaneously three times daily before meals. Authorizing Provider: TAYE HORAN MD * Telephone Encounter - Sharif Payan MA - 03/10/2022 9:49 AM EST Patient has been identified by name and date of : Yes Requested Prescriptions Pending Prescriptions Disp Refills insulin aspart U-100 (NOVOLOG FLEXPEN U-100 INSULIN) 100 unit/mL (3 mL) 5 Each 1 Sig: Inject 6 Units subcutaneously three times daily before meals. RX INSTRUCTIONS: Patient aware RX will be sent to pharmacy. No need to notify patient. Sharif Payan MA Casa: 02/2022 Nov: 05/2022 Last refill: 09/2021 * Telephone Encounter - Radha Alfaro Pss - 03/10/2022 9:15 AM EST Pharmacy verified in [facility] Patient has been identified by name and date of : Yes Patient aware RX will be sent to pharmacy. No need to notify patient. Patient phones for refill(s): Requested Prescriptions Pending Prescriptions Disp Refills insulin aspart U-100 (NOVOLOG FLEXPEN U-100 INSULIN) 100 unit/mL (3 mL) 5 Each 1 Sig: Inject 6 Units subcutaneously three times daily before meals. Date of last office visit : 02/17/2022 Date of next office visit : 05/20/2022 Last 2 Encounter Wt Readings: Date: Wt: 02/17/2022 104.8 kg (231 lb) 01/10/2022 103.9 kg (229 lb) Not applicable Please advise. Radha Alfaro Pss [facility] History of Present illness Narrative* Marcelina Garcia RN - 03/07/2022 1:16 PM EST INSIGHT CDM TELEPHONIC OUTREACH Provider Action/FYI: Home/Mobile # LVM Sent MCM Contact made with patient: No - Left message Hello my name is Marcelina Garcia RN your Heat Seal Operator [facility] the [facility] I am calling today for your bi-weekly check in. I am sorry I missed your call. I will reach out to you again tomorrow. (if the third call I will reach out to you again next week) Enter next patient outreach date for the following day using the Track Pt Outreach. End outreach. documented in this [facility]12-13-2022 Miscellaneous Notes* Telephone Encounter - Radha Ritter - 03/01/2022 10:10 AM EST Pharmacy verified in [facility] Patient has been identified by name and date of : Yes Patient aware RX will be sent to pharmacy. No need to notify patient. Patient phones for refill(s): Requested Prescriptions Pending Prescriptions Disp Refills amLODIPine (NORVASC) 5 mg tablet 90 tablet 1 Sig: Take 1 tablet by mouth once daily. one tab daily Date of last office visit : 02/17/2022 Date of next office visit : 05/20/2022 Last 2 Encounter Wt Readings: Date: Wt: 02/17/2022 104.8 kg (231 lb) 01/10/2022 103.9 kg (229 lb) Please advise. Radha Alfaro Pss documented in [facility]11-[facility]22 Hospital Discharge instructions Additional Instructions Follow-up with your primary care provider on Monday for a wound check.[facility] Work Phone: 1(432) 983-999811-17-2022 Miscellaneous Notes* Telephone Encounter - America Vásquez - 02/03/2022 10:11 AM EST Patient has been identified by name and date of : Yes Patient phones for refill(s): Requested Prescriptions Pending Prescriptions Disp Refills omeprazole (PRILOSEC) 40 mg capsule 90 capsule 1 Sig: Take 1 capsule by mouth daily before breakfast. 1/2 hr before meal. metFORMIN (GLUCOPHAGE) 1,000 mg tablet 180 tablet 1 Sig: Take 1 tablet by mouth twice daily with meals. Date of last office visit in primary care: 11/10/21 Last 2 Encounter Wt Readings: Date: Wt: 01/10/2022 103.9 kg (229 lb) 11/29/2021 103.9 kg (229 lb) Previous labs/tests for medication: Not applicable Please advise. Thank you. America Vásquez' documented in this [facility]10-31-2022 Miscellaneous Notes* Telephone Encounter - Sharif Payan MA - 01/17/2022 11:02 AM EDT Patient has been identified by name and date of : Yes Requested Prescriptions Pending Prescriptions Disp Refills fenofibrate (LOFIBRA) 200 mg capsule 30 capsule 11 Sig: Take 1 capsule by mouth daily before breakfast. RX INSTRUCTIONS: Patient aware RX will be sent to pharmacy. No need to notify patient. Sharif Payan MA Casa: 10/2021 Nov: 05/2022 Last refill; 05/2021 * Telephone Encounter - Mary Ceballos - 01/17/2022 10:11 AM EDT Patient has been identified by name and date of : Yes Requested Prescriptions Pending Prescriptions Disp Refills fenofibrate (LOFIBRA) 200 mg capsule 30 capsule 11 Sig: Take 1 capsule by mouth daily before breakfast. RX INSTRUCTIONS: Patient aware RX will be sent to pharmacy. No need to notify patient. Mary Cunninghamse documented in this [facility]10-25-2022 History of Present illness Narrative* Radha Pandya RN - 01/11/2022 12:03 PM EDT INSIGHT CDM TELEPHONIC OUTREACH Provider Action/FYI: Next PCP Visit: 05/20/2022 Denies needs at this time Contact made with patient: Yes Patient identified by name and . Discussed care with patient It s nice talking to you again. As a reminder, this is our bi-weekly check-in where I will be asking you questions about your health. This will only take a few minutes of your time. Is this a good time? Yes Symptoms What Chronic Disease(s) does the patient have: CKD Do you check your blood pressures at home? Yes, Enter readings: Occasionally Do you have new or worse shortness of breath with activity? No Do you feel like you are dehydrated for any reason, including not being able to eat or drink normally, or having less urine/much darker urine than normal for you? No Do you check your daily weight at home? Yes, 229 pounds Have you noticed a sudden gain in weight greater than three pounds in a day or five pounds in a week? No - knows to call PCC with weight gain noted above Are you having any other symptoms that your PCP needs to know about? No Symptom Escalation The patient required an escalation for symptom(s)? No Medications Do you have any questions about taking your medication or which medications you should be on? No Do you need any medication refills at this time, including any of the medications you might take only when needed? No Social We would like to make sure you have what you need so that your basic needs are met- including your personal safety, food, housing and medications? Would you like to speak with a social work presentation team member to help give you support for any of these needs? No It can be normal to feel anxious or down during a time like this. Would you like to talk to a mental health professional about how you have been feeling? No Closing Thank you for taking the time to talk with me today. We want to work with you to ensure that we arekeeping your medical condition(s) well-controlled and to keep you healthy and out of the doctor's office or hospital. It s also not too late for me to sign you up for automated weekly questionnaires through [employer]. This is an easy way for us to stay connected each week. Are you interested? No End Outreach * Radha Pandya RN - 01/10/2022 12:26 PM EDT INSIGHT CDM TELEPHONIC OUTREACH Provider Action/FYI: Patient grocery shopping - PCC to call 01/11/2022 Contact made with patient: Yes Patient identified by name and . Discussed care with patient It s nice talking to you again. As a reminder, this is our bi-weekly check-in where I will be asking you questions about your health. This will only take a few minutes of your time. Is this a good time? No - today is not a good time for the patient. Agree on a call back time and connect with the patient then. If applicable, update the next patient outreach date using the Track Pt Outreach. End outreach documented in this encounter[facility]10-10-2022 Miscellaneous Notes* Telephone Encounter - Evangelista Fisher LPN - 12/27/2021 12:59 PM EDT Pt's advised of same. Evangelista Fisher LPN * Telephone Encounter - Taye Horan MD - 12/27/2021 12:47 PM EDT Patient not due for pneumonia booster till next year. * Telephone Encounter - Mayra Valdez RN - 12/27/2021 11:16 AM EDT Patient asking pcp- when is he due for a pneumonia vaccine? Please advise patient. documented in this encounter[facility]09-13-2022 History of Present illness Narrative* Radha Pandya RN - 11/30/2021 2:12 PM EDT INSIGHT CDM TELEPHONIC OUTREACH Provider Action/FYI: Next PCP Visit: 05/20/2022 New goal established Patient researching & considering taking Qunol Magnesium Capsules - stated he advised PCP he was stopping magnesium on 11/10/2021 Patient stated he is trying to get more magnesium through food Contact made with patient: Yes Patient identified by name and . Discussed care with patient & spouse It s nice talking to you again. As a reminder, this is our bi-weekly check-in where I will be asking you questions about your health. This will only take a few minutes of your time. Is this a good time? Yes Symptoms What Chronic Disease(s) does the patient have: CKD Do you check your blood pressures at home? Yes, Enter readings: occasionally Do you have new or worse shortness of breath with activity? No Do you feel like you are dehydrated for any reason, including not being able to eat or drink normally, or having less urine/much darker urine than normal for you? No Do you check your daily weight at home? Yes, 229 pounds Have you noticed a sudden gain in weight greater than three pounds in a day or five pounds in a week? No - discussed should call PCCs office if gains 3 pounds or more in a day or five pounds or more in a week - patient & spouse verbalized understanding Do you have new or worsening cough? No Do you have new or worsening wheezing? No Do you need to use your rescue (Albuterol) inhaler or nebulizer more often than normal? No Are you having any other symptoms that your PCP needs to know about? No Symptom Escalation The patient required an escalation for symptom(s)? No Medications Do you have any questions about taking your medication or which medications you should be on? No Do you need any medication refills at this time, including any of the medications you might take only when needed? No Social We would like to make sure you have what you need so that your basic needs are met- including your personal safety, food, housing and medications? Would you like to speak with a social work presentation team member to help give you support for any of these needs? No It can be normal to feel anxious or down during a time like this. Would you like to talk to a mental health professional about how you have been feeling? No Closing Thank you for taking the time to talk with me today. We want to work with you to ensure that we arekeeping your medical condition(s) well-controlled and to keep you healthy and out of the doctor's office or hospital. It s also not too late for me to sign you up for automated weekly questionnaires through [employer]. This is an easy way for us to stay connected each week. Are you interested? No End Outreach * Radha Pandya RN - 11/29/2021 3:55 PM EDT INSIGHT CDM TELEPHONIC OUTREACH Provider Action/FYI: Patient at grocery store - [facility] will call tomorrow, 11/30/2021 Contact made with patient: Yes Patient identified by name and . Discussed care with patient It s nice talking to you again. As a reminder, this is our bi-weekly check-in where I will be asking you questions about your health. This will only take a few minutes of your time. Is this a good time? No - today is not a good time for the patient. Agree on a call back time and connect with the patient then. If applicable, update the next patient outreach date using the Track Pt Outreach. End outreach documented in this encounter[facility]08-05-2022 Miscellaneous Notes* Telephone Encounter - Taye Horan MD - 10/22/2021 3:13 PM EDT The following approved medication requests have been transmitted electronically. Signed Prescriptions Disp Refills loratadine (CLARITIN) 10 mg tablet 90 tablet 3 Sig: Take 1 tablet by mouth once daily. AAKASH: No Authorizing Provider: TAYE HORAN MD * Telephone Encounter - Sharif Payan MA - 10/22/2021 2:29 PM EDT Patient has been identified by name and date of : Yes Pending Prescriptions Disp Refills LORATADINE 10 MG TABLET 30 tablet 0 Sig: Take 1 tablet by mouth once daily. AAKASH: No RX INSTRUCTIONS: Patient aware RX will be sent to pharmacy. No need to notify patient. Sharif Payan MA documented in this encounter[facility]07-27-2022 Miscellaneous Notes* Telephone Encounter - Tonia Bedolla Ma - 10/13/2021 9:44 AM EDT Patient last visit with PCP 07/07/21 Follow up appointment scheduled 11/10/21 Tonia Bedolla Ma * Telephone Encounter - Brittany Merlos Pss - 10/13/2021 9:05 AM EDT Patient has been identified by name and date of : Yes Pending Prescriptions Disp Refills INSULIN ASPART (U-100) 100 UNIT/ML (3 ML) SUBCUTANEOUS PEN 5 Pen 1 Sig: Inject 6 Units subcutaneously three times daily before meals. AAKASH: No RX INSTRUCTIONS: Patient aware RX will be sent to pharmacy. No need to notify patient. Brittany Ritter documented in this encounter[facility]06-29-2022 History of Present illness Narrative* Judi Rice PA-C - 09/15/2021 12:43 PM EDT Lancets sent.. See below. * Meka Jansen MA - 09/15/2021 11:04 AM EDT POPULATION HEALTH NAVIGATION OUTREACH Action/ 1st attempt - voicemail message left and Mychart message sent offering to assist in scheduling apptwith PCP for leg cramps and magnesium levels. Pt also in need of scheduling appt with Dr. Rachid Mane, Podiatry in [place], for right heel pain. Postponing 1 day. Insight/CDM appts needed. Pt identified by name and : NO Outreach Outcome/Action Unable to reach patient: Left message MyChart message sent Did you use a PCP flex slot to schedule this appointment? N/A Reason for Outreach Community Monitoring [place] Payer: Payor: MEDICARE / Plan: MEDICARE A AND B / Product Type: Medicare / Care Gap Reviewed:: Follow-up appointment Specialty Scheduling Reminder: Reminder note to check Health Maintenance for items below Health Maintenance items due: COVID-19 VACCINE(4 - Booster for Moderna series) due on 05/14/2021 Message Sent to Practice: No Navigation Signature: Meka Jansen MA September 15, 2021 11:04 AM * Radha Pandya RN - 09/14/2021 10:33 AM EDT INSIGHT CDM TELEPHONIC OUTREACH Provider Action/FYI: Next PCP Visit: 11/10/2021 - PSS Pool to call to schedule sooner visit for leg cramps & magnesium levels PSS Pool to call patient to schedule visit with Dr. Rachid Mane for issue with right heel Magnesium is causing cramping in legs - sleeps with feet up & still cramps Right heel feels like something is in right heel Patient stopped Magnesium & bilateral cramping resolved & heel feels better Having diarrhea with Magnesium Contact made with patient: Yes Patient identified by name and . Discussed care with patient It s nice talking to you again. As a reminder, this is our bi-weekly check-in where I will be asking you questions about your health. This will only take a few minutes of your time. Is this a good time? Yes Symptoms What Chronic Disease(s) does the patient have: CKD and COPD Do you check your blood pressures at home? No Do you have new or worse shortness of breath with activity? No Do you feel like you are dehydrated for any reason, including not being able to eat or drink normally, or having less urine/much darker urine than normal for you? No Do you check your daily weight at home? Yes, 231 pounds Have you noticed a sudden gain in weight greater than three pounds in a day or five pounds in a week? No - discussed what to do if gains weight as stated above Do you have new or worsening cough? No Do you have new or worsening wheezing? No Do you need to use your rescue (Albuterol) inhaler or nebulizer more often than normal? No - does not have albuterol Are you having any other symptoms that your PCP needs to know about? Yes - magnesium is causing cramping in legs - sleeps with feet up - right heel feels like something is in there. Stopped Mg+ &cramps resolved & heel feels better. Diarrhea with Mg+. Symptom Escalation The patient required an escalation for symptom(s)? No Medications Do you have any questions about taking your medication or which medications you should be on? No Do you need any medication refills at this time, including any of the medications you might take only when needed? Yes - micro lancets Social We would like to make sure you have what you need so that your basic needs are met- including your personal safety, food, housing and medications? Would you like to speak with a social work presentation team member to help give you support for any of these needs? No It can be normal to feel anxious or down during a time like this. Would you like to talk to a mental health professional about how you have been feeling? No Closing Thank you for taking the time to talk with me today. We want to work with you to ensure that we arekeeping your medical condition(s) well-controlled and to keep you healthy and out of the doctor's office or hospital. It s also not too late for me to sign you up for automated weekly questionnaires through [employer]. This is an easy way for us to stay connected each week. Are you interested? No - changed to Telephonic Outreaches today Note to [facility] Pool: Please call Mr. Rodriguez for 2 appointments: 1. Sooner PCP Visit 2. Visit with Dr. Rachid Mane for issue with right heel. Thank you! Radha Pandya RN [facility] [phone] End Outreach inSight CDM Engagement Provider Action/FYI: Patient elected telephonic outreaches today Contact Made with Patient: Yes Patient identified by name and . Discussed care with patient Julio Cesar beltran name is Radha Pandya RN your Heat Seal Operator from Taye Horan MD office at the [facility]. I am reaching out today because I noticed it has been a few weeks since I have seenany responses from you on your questionnaire. I wanted to check on you and make sure you are doing well, and to remind you that your Taye Horan MD recommended this program for you so that you can stay better connected to your health. I will be monitoring your responses on the questionnaire to make sure we are not seeing any changes in your health that your Primary Care Physician needs to know about, or looking for improvements and keeping Taye Horan MD informed about it all. You and I will check in together anytime a problem arises, and determine a solution. I am here to help you stay healthy, and stay connected to your doctor's office. How can I help you in this program? The patient informs that he no longer wants to be part of the program Reason(s): Accepted Telephonic Outreachs Closing I am sorry to hear that you are no longer interested in/able to participate in our program. I have enjoyed partnering with you to manage your health. If things change and you would like to re-enroll,please reach out to your Primary Care Physician's office. You may hear from me again for future enrollment opportunities. Patient accepts telephonic outreach. Thank you for your time today. I am excited to work together in managing your health! I will check back within in two weeks to see how things are going. If questions or concerns arise between phone calls, please reach out to your PCP s office. documented in this encounter[facility]05-31-2022 Miscellaneous Notes* Telephone Encounter - Funmi Welch LPN - 08/17/2021 8:02 AM EDT NOV 11/10/21 * Telephone Encounter - Blanche Paul - 08/14/2021 8:26 AM EDT Patient has been identified by name and date of : Yes Last office visit in this department: 07/07/2021 RX INSTRUCTIONS: Patient aware RX will be sent to pharmacy. No need to notify patient. Patient phones requesting refills as follows: Pending Prescriptions Disp Refills METFORMIN 1,000 MG TABLET 180 tablet 1 Sig: Take 1 tablet by mouth twice daily with meals. AAKASH: No Please review and advise. Blanche Paul documented in this encounter[facility]05-02-2022 Miscellaneous Notes* Telephone Encounter - Taye Horan MD - 07/19/2021 9:36 AM EDT The following approved medication requests have been transmitted electronically. Signed Prescriptions Disp Refills insulin glargine (BASAGLAR KWIKPEN U-100 INSULIN) 100 unit/mL (3 mL) 5 Pen 5 Sig: Inject 30 Units subcutaneously daily at bedtime. AAKASH: No Authorizing Provider: TAYE HORAN MD * Telephone Encounter - Hyun Dave RN - 07/19/2021 9:09 AM EDT Patient has been identified by name and date of : Yes Patient phones for refill(s): Pending Prescriptions Disp Refills BASAGLAR KWIKPEN U-100 INSULIN 100 UNIT/ML (3 ML) SUBCUTANEOUS 5 Pen 5 Sig: Inject 30 Units subcutaneously daily at bedtime. AAKASH: No Date of last office visit with pcp: 07/07/2021 Future appt: 11/10/2021 Last 2 Encounter Wt Readings: Date: Wt: 07/07/2021 104.3 kg (230 lb) 01/08/2021 105.2 kg (232 lb) Previous labs/tests for medication: Diabetes: Hemoglobin A1C (%) Date Value 05/10/2021 6.4 12/29/2020 5.9 Blood Pressure: BUN (mg/dL) Date Value 05/10/2021 13 Sodium (mmol/L) Date Value 05/10/2021 139 Last 1 Encounter BP Readings: Date: BP: 07/07/2021 138/86 Liver Function: ALT (U/L) Date Value 12/29/2020 31 AST (U/L) Date Value 12/29/2020 31 Please advise. Thank you. Hyun Dave RN documented in this encounterFisher[facility]04-21-2022 Miscellaneous Notes* Telephone Encounter - Evangelista Fisher LPN - 07/08/2021 12:21 PM EDT Pt advised of Dr Horan's message and instructions. Pt verbalizes understanding and repeats back correctly. Evangelista Fisher LPN * Telephone Encounter - Taye Horan MD - 07/08/2021 12:00 PM EDT Let patient know I want to change the Mag to 400 mg twice a day. New script sent. Placed order for repeat Mg in a month. * Telephone Encounter - Evangelista Fisher LPN - 07/08/2021 11:53 AM EDT Advised pt of results. Pt states he has been taking mag ox 400mg daily but was not taking this for 2 weeks d/t he had a uti and [facility] had put him on Cipro and we was advised not to take the magnesium for 2 weeks. States this was just prior to lab draw yesterday. Advised pt he would be contacted if any further instructions from Dr Horan. Evangelista Fisher LPN * Telephone Encounter - Taye Horan MD - 07/08/2021 11:14 AM EDT Let patient know magnesium is still too low and not any higher then 5 months ago. Please verify he take Magnesium Oxid 400 mg one every day? documented in this encounterFisher[facility]04-11-2022 History of Present illness Narrative* Christopher Silva RN - 06/28/2021 8:24 AM EDT Abdomen soft non-distended. BS present x 4 quadrants. Passing flatus. * Charo Brown RN - 06/23/2021 8:49 AM EDT Have you been tested for COVID Yes Have you been told you were positive for COVID No Have you had any known exposure to someone that is positive for COVID Yes Do you have a cough No Do you have shortness of breath No Do you have a sore throat No Are you having chills No Are you having muscle aches. No Please come to the hospital wearing a mask and have your significant other wear a mask as well. Both of you should check your temperature before leaving to come here, if it is 100 or higher please call [phone] for instruction.[facility] PRE-ADMISSION TESTING INSTRUCTIONS The Preadmission Testing patient is instructed accordingly using the following criteria (check applicable): ARRIVAL INSTRUCTIONS: [x] Parking the day of Surgery is located in the Main Entrance lot. Upon entering the door, make animmediate right to the surgery plasma processing technician desk [x] Bring photo ID and insurance card [x] Bring in a copy of Living will or Durable Power of personal injury attorney papers. [x] Please be sure to arrange for responsible adult to provide transportation to and from the hospital [x] Please arrange for responsible adult to be with you for the 24 hour period post procedure due to having anesthesia GENERAL INSTRUCTIONS: [x] Nothing by mouth after midnight, including gum, candy, mints or water [x] You may brush your teeth, but do not swallow any water [x] Take medications as instructed with 1-2 oz of water [x] Stop herbal supplements and vitamins 5 days prior to procedure [x] Follow preop dosing of blood thinners per physician instructions [x] Take 1/2 dose of evening insulin, but no insulin after midnight [x] No oral diabetic medications after midnight [x] If diabetic and have low blood sugar or feel symptomatic, take 1-2oz apple juice only [] Bring inhalers day of surgery [] Bring C-PAP/ Bi-Pap day of surgery [] Bring urine specimen day of surgery [x] Shower or bath with soap, lather and rinse well, AM of Surgery, no lotion, powders or creams tosurgical site [x] Follow bowel prep as instructed per surgeon [x] No tobacco products within 24 hours of surgery [x] No alcohol or illegal drug use within 24 hours of surgery. [x] Jewelry, body piercing's, eyeglasses, contact lenses and dentures are not permitted into surgery (bring cases) [x] Please do not wear any nail greek, make up or hair products on the day of surgery [x] You can expect a call the business day prior to procedure to notify you if your arrival time changes [x] If you receive a survey after surgery we would greatly appreciate your comments [] Parent/guardian of a minor must accompany their child and remain on the premises the entire timethey are under our care [] Pediatric patients may bring favorite toy, blanket or comfort item with them [] A caregiver or family member must remain with the patient during their stay if they are mentallyhandicapped, have dementia, disoriented or unable to use a call light or would be a safety concern if left unattended [x] Please notify surgeon if you develop any illness between now and time of surgery (cold, cough, sore throat, fever, nausea, vomiting) or any signs of infections including skin, wounds, and dental. [x] The [facility]patient [facility] is available to fill your prescription here on your day of surgery, askyour preop nurse for details [] Other instructions EDUCATIONAL MATERIALS PROVIDED: [] PAT Preoperative Education Packet/Booklet [] Medication List [] Transfusion bracelet applied with instructions [] Shower with soap, lather and rinse well, and use CHG wipes provided the evening before surgery as instructed [] Incentive spirometer with instructions [facility] Phone: [phone]) [phone] Miscellaneous Notes* Telephone Encounter - Sharif Payan MA - 06/24/2021 3:48 PM EDT Spoke with patient and gave provider instructions. Patient repeated back and voiced understanding. Sharif Payan MA * Telephone Encounter - Taye Horan MD - 06/24/2021 3:33 PM EDT Advise patient not to take his metformin or short acting aspartate insuline day of scope. On the night before scope only take 1/2 of his long acting Basaglar (Glargine). * Telephone Encounter - Echo Agarwal RN - 06/24/2021 1:39 PM EDT Patient calling back to ask if PCP has reviewed message from yesterday? Advised not yet reviewed. Echo Agrawal RN * Telephone Encounter - Martha Naranjo RN - 06/23/2021 3:50 PM EDT Patient calls and states that he has colonoscopy on Monday06/28/2021. Patient asking what he should with his diabetic medications prior to procedure? Please review and advise, Martha Naranjo RN [facility] of Present illness Narrative* Kourtney Jerry RN - 06/20/2021 2:41 PM EDT PRIMARY CARE COORDINATION QUICK NOTE Provider Action/FYI Insight intro message sent. Patient identified by name and date . [facility] Evaluation note* Diagnosis Stage 3 chronic kidney disease, unspecified whether stage 3a or 3b CKD (HCC)- Primary documented [facility] History of Past illness Narrative* Problem Noted Date Resolved Date Diabetic eye exam 05/07/2019 02/25/2020 Overview: Last done: 04/30/2019 documented as of this encounter (statuses as of 06/20/2021) [facility] of Past illness Narrative* Problem Noted Date Resolved Date Diabetic eye exam 05/07/2019 02/25/2020 Overview: Last done: 04/30/2019 documented as of this encounter (statuses as of 06/24/2021) [facility] illness Narrative* Problem Noted Date Resolved Date Diabetic eye exam 05/07/2019 02/25/2020 Overview: Last done: 04/30/2019 documented as of this encounter (statuses as of 07/08/2021) [facility] illness Narrative* Problem Noted Date Resolved Date Diabetic eye exam 05/07/2019 02/25/2020 Overview: Last done: 04/30/2019 documented as of this encounter (statuses as of 07/19/2021) [facility] illness Narrative* Problem Noted Date Resolved Date Diabetic eye exam 05/07/2019 02/25/2020 Overview: Last done: 04/30/2019 documented as of this encounter (statuses as of 08/17/2021) [address]18-2020 History of Past illness Narrative* Problem Noted Date Resolved Date Diabetic eye exam 05/07/2019 02/25/2020 Overview: Last done: 04/30/2019 documented as of this encounter (statuses as of 09/15/2021) [facility] Narrative* Problem Noted Date Resolved Date Diabetic eye exam 05/07/2019 02/25/2020 Overview: Last done: 04/30/2019 documented as of this encounter (statuses as of 10/13/2021) [place] [id number] History of Past illness Narrative* Problem Noted Date Resolved Date Diabetic eye exam 05/07/2019 02/25/2020 Overview: Last done: 04/30/2019 documented as of this encounter (statuses as of 10/22/2021) [address]18-2020 History of Past illness Narrative* Problem Noted Date Resolved Date Diabetic eye exam 05/07/2019 02/25/2020 Overview: Last done: 04/30/2019 documented as of this encounter (statuses as of 11/30/2021) [address]18-2020 History of Past illness Narrative* Problem Noted Date Resolved Date Diabetic eye exam 05/07/2019 02/25/2020 Overview: Last done: 04/30/2019 documented as of this encounter (statuses as of 12/27/2021) [facility] Narrative* Problem Noted Date Resolved Date Diabetic eye exam 05/07/2019 02/25/2020 Overview: Last done: 04/30/2019 documented as of this encounter (statuses as of 01/11/2022) [place] [id number] History of Past illness Narrative* Problem Noted Date Resolved Date Diabetic eye exam 05/07/2019 02/25/2020 Overview: Last done: 04/30/2019 documented as of this encounter (statuses as of 01/17/2022) [address]18-2020 History of Past illness Narrative* Problem Noted Date Resolved Date Diabetic eye exam 05/07/2019 02/25/2020 Overview: Last done: 04/30/2019 documented as of this encounter (statuses as of 02/03/2022) [place] [id number] History of Past illness Narrative* Problem Noted Date Resolved Date Diabetic eye exam 05/07/2019 02/25/2020 Overview: Last done: 04/30/2019 documented as of this encounter (statuses as of 03/01/2022) [place] [id number] History of Past illness Narrative* Problem Noted Date Resolved Date Diabetic eye exam 05/07/2019 02/25/2020 Overview: Last done: 04/30/2019 documented as of this encounter (statuses as of 03/07/2022) [address]18-2020 History of Past illness Narrative* Problem Noted Date Resolved Date Diabetic eye exam 05/07/2019 02/25/2020 Overview: Last done: 04/30/2019 documented as of this encounter (statuses as of 03/11/2022) [address]18[address]2020 History of Past illness Narrative* Problem Noted Date Resolved Date Diabetic eye exam 05/07/2019 02/25/2020 Overview: Last done: 04/30/2019 documented as of this encounter (statuses as of 03/23/2022) [facility] Narrative* Problem Noted Date Resolved Date Diabetic eye exam 05/07/2019 02/25/2020 Overview: Last done: 04/30/2019 documented as of this encounter (statuses as of 04/05/2022) [address]2020 History of Past illness Narrative* Problem Noted Date Resolved Date Diabetic eye exam 05/07/2019 02/25/2020 Overview: Last done: 04/30/2019 documented as of this encounter (statuses as of 04/14/2022) [address]18-2020 History of Past illness Narrative* Problem Noted Date Resolved Date Diabetic eye exam 05/07/2019 02/25/2020 Overview: Last done: 04/30/2019 documented as of this encounter (statuses as of 04/15/2022) [address]18[address]2020 History of Past illness Narrative* Problem Noted Date Resolved Date Diabetic eye exam 05/07/2019 02/25/2020 Overview: Last done: 04/30/2019 documented as of this encounter (statuses as of 04/21/2022) [address]2020 History of Past illness Narrative* Problem Noted Date Resolved Date Diabetic eye exam 05/07/2019 02/25/2020 Overview: Last done: 04/30/2019 documented as of this encounter (statuses as of 05/10/2022) [address]18[address]2020 History of Past illness Narrative* Problem Noted Date Resolved Date Diabetic eye exam 05/07/2019 02/25/2020 Overview: Last done: 04/30/2019 documented as of this encounter (statuses as of 05/17/2022) [address]18-2020 History of Past illness Narrative* Problem Noted Date Resolved Date Diabetic eye exam 05/07/2019 02/25/2020 Overview: Last done: 04/30/2019 documented as of this encounter (statuses as of 06/07/2022) [facility] Narrative* Problem Noted Date Resolved Date Diabetic eye exam 05/07/2019 02/25/2020 Overview: Last done: 04/30/2019 documented as of this encounter (statuses as of 06/30/2022) [facility] noteNo assessment information availableWKettering [facility] Work Phone: Evaluation note* Diagnosis Hx of adenomatous colonic polyps Personal history of colonic polyps documented in this encounter [facility] [employer] Work Phone: evaluation note* Diagnosis Hypomagnesemia- Primary Disorders of magnesium metabolism documented in this encounter [facility] note* Diagnosis Headache, unspecified headache type [facility]* Diagnosis GERD without esophagitis Esophageal reflux [facility]* Diagnosis Dyslipidemia Other and unspecified hyperlipidemia documented in this encounter [facility] note* Diagnosis Medicare annual wellness visit, subsequent- Primary Routine general medical examination at a health care facility Type 2 diabetes mellitus with stage 3b chronic kidney disease, with long-term current use of insulin (HCC) Diabetic eye exam (HCC) Type II or unspecified type diabetes mellitus without mention of complication, not stated as uncontrolled Dyslipidemia Other and unspecified hyperlipidemia Essential hypertension Unspecified essential hypertension Hypertensive chronic kidney disease with stage 1 through stage 4 chronic kidney disease, or unspecified chronic kidney disease Stage 3b chronic kidney disease (HCC) Anemia of chronic disease Anemia of other chronic disease GERD without esophagitis Esophageal reflux Hypomagnesemia Disorders of magnesium metabolism Smoker Tobacco use disorder Benign prostatic hyperplasia with lower urinary tract symptoms, symptom details unspecified Advance directive discussed with patient Other specified counseling Need for vaccination Need for prophylactic vaccination and inoculation against unspecified single disease Nausea Nausea alone Diarrhea, unspecified type Neck pain Cervicalgia documented [facility] encounter [facility]* Diagnosis Type 2 diabetes mellitus with stage 3 chronic kidney disease, with long-term current use of insulin, unspecified whether stage 3a or 3b CKD (HCC) [facility] Diagnosis Dyslipidemia Other and unspecified hyperlipidemia [facility] Diagnosis Diabetic 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 (HCC)- Primary Blister of leg Hip, thigh, leg, and ankle, blister, without mention of infection [facility] Diagnosis Type 2 diabetes mellitus with stage 3b chronic kidney disease, 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 Diabetic eye exam (HCC) Type II or unspecified type diabetes mellitus without mention of complication, not stated as uncontrolled Essential hypertension Unspecified essential hypertension Dyslipidemia Other and unspecified hyperlipidemia GERD without esophagitis Esophageal reflux Hypertensive chronic kidney disease with stage 1 through stage 4 chronic kidney disease, or unspecified chronic kidney disease Stage 3b chronic kidney disease (HCC) Anemia of chronic disease Anemia of other chronic disease Hypomagnesemia Disorders of magnesium metabolism Smoker Tobacco use disorder [facility]* Diagnosis GERD without esophagitis Esophageal reflux [facility]* Diagnosis Medicare annual wellness visit, subsequent- Primary Routine general medical examination at a rust Type 2 diabetes mellitus with stage 3b chronic kidney disease, with long-term current use of insulin ([facility]) Diabetic eye exam ([facility]) Type II or unspecified type diabetes mellitus without mention of complication, not stated as uncontrolled Essential hypertension Unspecified essential hypertension Dyslipidemia Other and unspecified hyperlipidemia Anemia of chronic disease Anemia of other chronic disease GERD without esophagitis Esophageal reflux Hypertensive chronic kidney disease with stage 1 through stage 4 chronic kidney disease, or unspecified chronic kidney disease Stage 3b chronic kidney disease (HCC) Smoker Tobacco use disorder Hypomagnesemia Disorders of magnesium metabolism Benign prostatic hyperplasia with lower urinary tract symptoms, symptom details unspecified Advance directive discussed with patient Other specified counseling [facility] Diagnosis Type 2 diabetes mellitus with stage 3 chronic kidney disease, with long-term current use of insulin, unspecified whether stage 3a or 3b CKD ([facility]) [facility]* Diagnosis GERD without esophagitis Esophageal reflux [facility] Diagnosis Dyslipidemia Other and unspecified hyperlipidemia [facility] Diagnosis Type 2 diabetes mellitus without complication, with long-term current use of insulin ([facility]) [facility] Diagnosis Type 2 diabetes mellitus with stage 3b chronic kidney disease, 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 Essential hypertension Unspecified essential hypertension Hypertensive chronic kidney disease with stage 1 through stage 4 chronic kidney disease, or unspecified chronic kidney disease Smoker Tobacco use disorder GERD without esophagitis Esophageal reflux Nausea Nausea alone Benign prostatic hyperplasia with lower urinary tract symptoms, symptom details unspecified Stage 3b chronic kidney disease (HCC) Dyslipidemia Other and unspecified hyperlipidemia COVID-19 SOB (shortness of breath) Shortness of breath Medication management Encounter for long-term (current) use of other medications documented in this encounter [facility] note* Diagnosis COVID-19 SOB (shortness of breath) Shortness of breath documented [facility] this encounter [facility]* Diagnosis GERD without esophagitis Esophageal reflux documented in this encounter [facility] note* Diagnosis Type 2 diabetes mellitus with stage 3 chronic kidney disease, with long-term current use of insulin, unspecified whether stage 3a or 3b CKD (HCC) documented in this encounter [facility] note* Diagnosis Dyslipidemia Other and unspecified hyperlipidemia documented in this encounter [facility] note* Diagnosis Medicare annual wellness visit, subsequent- Primary Routine general medical examination at a [facility] Advance directive discussed with patient Other specified counseling Screening for depression Encounter for screening examination for other mental health and behavioral disorders GERD without esophagitis Esophageal reflux Essential hypertension Unspecified essential hypertension Smoker Tobacco use disorder Type 2 diabetes mellitus with stage 3b chronic kidney disease, 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) Dyslipidemia Other and unspecified hyperlipidemia Hypertensive chronic kidney disease with stage 1 through stage 4 chronic kidney disease, or unspecified chronic kidney disease Hypomagnesemia Disorders of magnesium metabolism History of kidney stones Personal history of urinary calculi Benign prostatic hyperplasia with lower urinary tract symptoms, symptom details unspecified Chronic kidney disease, stage 1 documented in this encounter [facility] note* Diagnosis Diabetic eye exam (HCC)- Primary Type II or unspecified type diabetes mellitus without mention of complication, not stated as uncontrolled documented in this encounter [facility] note* Diagnosis Type 2 diabetes mellitus with stage 3b chronic kidney disease, 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 A responsible person should be with you for the next 24 hours. Please follow the instructions checked below: DIET INSTRUCTIONS: [x]Start with light diet and progress to your normal diet as you feel like eating. If you experience nausea or repeated episodes of vomiting which persist beyond 12-24 hours, notify your doctor. []Other ACTIVITY INSTRUCTIONS: [x]Rest today. Increase activity as tolerated []No heavy lifting or strenuous activity [x]No driving for today []Other MEDICATION INSTRUCTIONS: [x]Prescriptions sent with you. Use as directed. When taking pain medications, you may experience dizziness or drowsiness. Do not drink alcohol or drive when taking these medications. [x]Continue preop medications Post-procedure Care If any tissue was removed: It will be sent to a lab to be examined. It may take 1-2 weeks for results. The doctor will usuallygive an initial report after the scope is removed. Other tests may be recommended. A small amount of bleeding may occur during the first few days after the procedure. When you return home after the procedure, be sure to follow your doctor's instructions, which may include: Resume medicines as instructed by your doctor. Resume normal diet, unless directed otherwise by your doctor. The sedative will make you drowsy. Avoid driving, operating machinery, or making important decisions for the rest of the day. Rest for the remainder of the day. After arriving home, contact your doctor if any of the following occurs: Bleeding from your rectum, notify your doctor if you pass a teaspoonful of blood or more. Black, tarry stools Severe abdominal pain Hard, swollen abdomen Signs of infection, including fever or chills Inability to pass gas or stool Coughing, shortness of breath, chest pain, severe nausea or vomiting In case of an emergency, CALL 911 . FOLLOW-UP CARE: [x]Call the office at [phone] for follow-up appointment in 1 week [facility] Phone: Hospital Discharge instructions Additional Instructions Please take the ointment to your right eye for 5 days. Finish the entire prescription of Keflex. Please return for worsening redness, vision changes, fever chills nausea vomiting.[facility] Work Phone: Hospital Discharge instructions Additional Instructions Follow-up with your PCP and return for any worsening symptoms. You can also follow-up with urology given there was blood seen in your urineWoocarlos [facility] Work Phone: Reason for visit Narrative* Auth/Cert Specialty Diagnoses / Procedures Referred By Contac t Referred To Contact Diagnoses History of colon polyps HISTORY OF COLON POLYPS Procedures MN COLONOSCOPY FLX DX W/COLLJ SPEC WHEN PFRMD MN COLONOSCOPY W/BIOPSY SINGLE/MULTIPLE MN COLSC FLX W/RMVL OF TUMOR POLYP LESION SNARE TQ COLONOSCOPY DIAGNOSTIC Meir Sethi MD [address] [place] [address] [employer] [address] [place] [address] Referral ID Status Reason Start Date Expiration Date Visits Re quested Visits Authorized [id number] 1 [employer] Phone: Summary Purpose Family History Relationship Condition Age at Onset Recorded Date/T edis father Hypertension Unknown Transient ischemic attack Unknown sister Coronary artery disease Unknown Diabetes mellitus Unknown Chronic obstructive pulmonary disease Unk nown Malignant neoplasm of lung Unknown Advance Directives Advance Directive Response Recorded Date/ Time Living Will Yes June 17, 2021 1:28pm Power of Customer Support Consultant Yes June 17 1:28pm Documents on File Type Date Recorded 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 Advance Directive(s) 06/23/2020 10:39 AM Documents on File Type Date Recorded 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 ACP-Power of Customer Support Consultant ACP-Advance Directive 11/12/2012 11:46 PM ACP-Advance Directive 11/01/2012 10:55 AM ACP-Advance Directive 10/30/2012 2:45 PM ACP-Advance Directive 10/24/2012 6:49 AM ACP-Advance Directive 01/30/2012 8:17 PM Latest Code Status on File Code Status Date Activated Date Inactivated Comments Full Code 06/28/2021 7:06 AM Full Code 02/05/2018 7:45 AM 02/05/2018 12:06 PM Full Code 10/04/2016 8:41 AM 10/05/2016 2:47 AM Full Code 07/26/2016 8:11 PM 07/27/2016 5:47 PM Full Code 09/06/2012 8:54 AM 09/07/2012 3:02 AM Advance Directive Response Recorded Date/ Time Living Will No February 10 7:35pm Power of Customer Support Consultant No February 10, 2022 7:35pm Advance Directive Response Recorded Date/ Time Living Will No September 17, 2022 1 1:32am Power of Customer Support Consultant No September 17, 2022 11:32am Advance Directive Response Recorded Date/ Time Living Will Yes February 17 4:58am Do you have a Healthcare Power of Customer Support Consultant? Yes February 18, 2024 4:58am Name of Medical Power of Customer Support Consultant Mckenzie - February 18, 2024 4:58am Living Will No June 16, 2024 5:54pm Do you have a Healthcare Power of Customer Support Consultant? No June 16, 2024 5:54pm Chief Complaint and Reason for Visit Chief Complaint COMPLAINT Chief Complaint LAC Chief Complaint EYE IRRITATION Chief Complaint Admit Date cold symptoms February 18, 2024 3 :40am ABD PAIN June 16, 2024 5:4 3pm Reason for Referral Specialty Diagnoses / Procedures Referred By Sandhya kendall Referred To Contact Gastroenterology Diagnoses Nausea Diarrhea, unspecified type Procedures CONSULT TO GASTROENTEROLOGY OFFICE/OUTPATIENT [facility] 60-74 MINUTES Taye Horan MD [address] [place] [address] Referral ID Status Reason Start Date Expiration Date Visits Requested Visits Authorized [id number] Authorized PCP Requested Referral 07/08/2022 07/08/2023 1 1 Additional Source Comments (unrecognized sect ion and content) No Status Records FoundNo Status Records FoundNo Status Records FoundNo Status Records FoundNo Status Records Found INFORMATION SOURCE (unrecogn ized section and content) DATE CREATED AUTHOR 08/25/2018 [facility] DATE CREATED AUTHOR AUTHOR'S ORGANIZ ATION 06/24/2020 [facility] DATE CREATED AUTHOR AUTHOR'S ORGANIZ ATION 07/01/2021 [facility] DATE CREATED AUTHOR AUTHOR'S ORGANIZ ATION 06/22/2024 [facility] DATE CREATED AUTHOR AUTHOR'S CINTHYA TRUJILLO 09/17/2024 [facility] Goals (unrecognized section and content) Goals may be documented in a n alternate sectionGoals may be documented in an alternate sectionGoals may be documented in an alternate sectionGoals may be documented in an alternate section Source Comments (unrecognize d section and content) In the event this informatio n is protected by the Federal Confidentiality of Alcohol and Drug Abuse Patient Records regulations: The Federal rules restrict any use of the information to criminally investigate or prosecute any alcohol or drug abuse patient.[facility] CenterIn the event this information is protected by the Federal Confidentiality of Alcohol and Drug Abuse Patient Records regulations: The Federal rules restrict any use of the information to criminally investigate or prosecute any alcohol or drug abuse patient.[facility] CenterIn the event this information is protected by the Federal Confidentiality of Alcohol and Drug Abuse Patient Records regulations: The Federal rules restrict any use of the information to criminally investigate or prosecute any alcohol or drug abuse patient.[facility] CenterIn the event this information is protected by the Federal Confidentiality of Alcohol and Drug Abuse Patient Records regulations: The Federal rules restrict any use of the information to criminally investigate or prosecute any alcohol or drug abuse patient.[facility] CenterIn the event this information is protected by the Federal Confidentiality of Alcohol and Drug Abuse Patient Records regulations: The Federal rules restrict any use of the information to criminally investigate or prosecute any alcohol or drug abuse patient.[facility] CenterIn the event this information is protected by the Federal Confidentiality of Alcohol and Drug Abuse Patient Records regulations: The Federal rules restrict any use of the information to criminally investigate or prosecute any alcohol or drug abuse patient.[facility] CenterIn the event this information is protected by the Federal Confidentiality of Alcohol and Drug Abuse Patient Records regulations: The Federal rules restrict any use of the information to criminally investigate or prosecute any alcohol or drug abuse patient.[facility] CenterIn the event this information is protected by the Federal Confidentiality of Alcohol and Drug Abuse Patient Records regulations: The Federal rules restrict any use of the information to criminally investigate or prosecute any alcohol or drug abuse patient.[facility] CenterIn the event this information is protected by the Federal Confidentiality of Alcohol and Drug Abuse Patient Records regulations: The Federal rules restrict any use of the information to criminally investigate or prosecute any alcohol or drug abuse patient.[facility] CenterIn the event this information is protected by the Federal Confidentiality of Alcohol and Drug Abuse Patient Records regulations: The Federal rules restrict any use of the information to criminally investigate or prosecute any alcohol or drug abuse patient.[facility] CenterIn the event this information is protected by the Federal Confidentiality of Alcohol and Drug Abuse Patient Records regulations: The Federal rules restrict any use of the information to criminally investigate or prosecute any alcohol or drug abuse patient.[facility] CenterIn the event this information is protected by the Federal Confidentiality of Alcohol and Drug Abuse Patient Records regulations: The Federal rules restrict any use of the information to criminally investigate or prosecute any alcohol or drug abuse patient.[facility] CenterIn the event this information is protected by the Federal Confidentiality of Alcohol and Drug Abuse Patient Records regulations: The Federal rules restrict any use of the information to criminally investigate or prosecute any alcohol or drug abuse patient.[facility] CenterIn the event this information is protected by the Federal Confidentiality of Alcohol and Drug Abuse Patient Records regulations: The Federal rules restrict any use of the information to criminally investigate or prosecute any alcohol or drug abuse patient.[facility] CenterIn the event this information is protected by the Federal Confidentiality of Alcohol and Drug Abuse Patient Records regulations: The Federal rules restrict any use of the information to criminally investigate or prosecute any alcohol or drug abuse patient.[facility] CenterIn the event this information is protected by the Federal Confidentiality of Alcohol and Drug Abuse Patient Records regulations: The Federal rules restrict any use of the information to criminally investigate or prosecute any alcohol or drug abuse patient.[facility] CenterIn the event this information is protected by the Federal Confidentiality of Alcohol and Drug Abuse Patient Records regulations: The Federal rules restrict any use of the information to criminally investigate or prosecute any alcohol or drug abuse patient.[facility] CenterIn the event this information is protected by the Federal Confidentiality of Alcohol and Drug Abuse Patient Records regulations: The Federal rules restrict any use of the information to criminally investigate or prosecute any alcohol or drug abuse patient.[facility] CenterIn the event this information is protected by the Federal Confidentiality of Alcohol and Drug Abuse Patient Records regulations: The Federal rules restrict any use of the information to criminally investigate or prosecute any alcohol or drug abuse patient.[facility] CenterIn the event this information is protected by the Federal Confidentiality of Alcohol and Drug Abuse Patient Records regulations: The Federal rules restrict any use of the information to criminally investigate or prosecute any alcohol or drug abuse patient.[facility] CenterIn the event this information is protected by the Federal Confidentiality of Alcohol and Drug Abuse Patient Records regulations: The Federal rules restrict any use of the information to criminally investigate or prosecute any alcohol or drug abuse patient.[facility] CenterIn the event this information is protected by the Federal Confidentiality of Alcohol and Drug Abuse Patient Records regulations: The Federal rules restrict any use of the information to criminally investigate or prosecute any alcohol or drug abuse patient.[facility] CenterIn the event this information is protected by the Federal Confidentiality of Alcohol and Drug Abuse Patient Records regulations: The Federal rules restrict any use of the information to criminally investigate or prosecute any alcohol or drug abuse patient.[facility] CenterIn the event this information is protected by the Federal Confidentiality of Alcohol and Drug Abuse Patient Records regulations: The Federal rules restrict any use of the information to criminally investigate or prosecute any alcohol or drug abuse patient.[facility] CenterIn the event this information is protected by the Federal Confidentiality of Alcohol and Drug Abuse Patient Records regulations: The Federal rules restrict any use of the information to criminally investigate or prosecute any alcohol or drug abuse patient.[facility] CenterIn the event this information is protected by the Federal Confidentiality of Alcohol and Drug Abuse Patient Records regulations: The Federal rules restrict any use of the information to criminally investigate or prosecute any alcohol or drug abuse patient.[facility] CenterIn the event this information is protected by the Federal Confidentiality of Alcohol and Drug Abuse Patient Records regulations: The Federal rules restrict any use of the information to criminally investigate or prosecute any alcohol or drug abuse patient.[facility] CenterIn the event this information is protected by the Federal Confidentiality of Alcohol and Drug Abuse Patient Records regulations: The Federal rules restrict any use of the information to criminally investigate or prosecute any alcohol or drug abuse patient.[facility] CenterIn the event this information is protected by the Federal Confidentiality of Alcohol and Drug Abuse Patient Records regulations: The Federal rules restrict any use of the information to criminally investigate or prosecute any alcohol or drug abuse patient.[facility] CenterIn the event this information is protected by the Federal Confidentiality of Alcohol and Drug Abuse Patient Records regulations: The Federal rules restrict any use of the information to criminally investigate or prosecute any alcohol or drug abuse patient.[facility] CenterIn the event this information is protected by the Federal Confidentiality of Alcohol and Drug Abuse Patient Records regulations: The Federal rules restrict any use of the information to criminally investigate or prosecute any alcohol or drug abuse patient.[facility] CenterIn the event this information is protected by the Federal Confidentiality of Alcohol and Drug Abuse Patient Records regulations: The Federal rules restrict any use of the information to criminally investigate or prosecute any alcohol or drug abuse patient.[facility] CenterIn the event this information is protected by the Federal Confidentiality of Alcohol and Drug Abuse Patient Records regulations: The Federal rules restrict any use of the information to criminally investigate or prosecute any alcohol or drug abuse patient.[facility] CenterIn the event this information is protected by the Federal Confidentiality of Alcohol and Drug Abuse Patient Records regulations: The Federal rules restrict any use of the information to criminally investigate or prosecute any alcohol or drug abuse patient.[facility] CenterIn the event this information is protected by the Federal Confidentiality of Alcohol and Drug Abuse Patient Records regulations: The Federal rules restrict any use of the information to criminally investigate or prosecute any alcohol or drug abuse patient.[facility] CenterIn the event this information is protected by the Federal Confidentiality of Alcohol and Drug Abuse Patient Records regulations: The Federal rules restrict any use of the information to criminally investigate or prosecute any alcohol or drug abuse patient.[facility] CenterIn the event this information is protected by the Federal Confidentiality of Alcohol and Drug Abuse Patient Records regulations: The Federal rules restrict any use of the information to criminally investigate or prosecute any alcohol or drug abuse patient.[facility] CenterIn the event this information is protected by the Federal Confidentiality of Alcohol and Drug Abuse Patient Records regulations: The Federal rules restrict any use of the information to criminally investigate or prosecute any alcohol or drug abuse patient.[facility] CenterIn the event this information is protected by the Federal Confidentiality of Alcohol and Drug Abuse Patient Records regulations: The Federal rules restrict any use of the information to criminally investigate or prosecute any alcohol or drug abuse patient.[facility] CenterIn the event this information is protected by the Federal Confidentiality of Alcohol and Drug Abuse Patient Records regulations: The Federal rules restrict any use of the information to criminally investigate or prosecute any alcohol or drug abuse patient.[facility] CenterIn the event this information is protected by the Federal Confidentiality of Alcohol and Drug Abuse Patient Records regulations: The Federal rules restrict any use of the information to criminally investigate or prosecute any alcohol or drug abuse patient.[facility]In the event this information is protected by the Federal Confidentiality of Alcohol and Drug Abuse Patient Records regulations: The Federal rules restrict any use of the information to criminally investigate or prosecute any alcohol or drug abuse patient.[facility] CenterIn the event this information is protected by the Federal Confidentiality of Alcohol and Drug Abuse Patient Records regulations: The Federal rules restrict any use of the information to criminally investigate or prosecute any alcohol or drug abuse patient.[facility]In the event this information is protected by the Federal Confidentiality of Alcohol and Drug Abuse Patient Records regulations: The Federal rules restrict any use of the information to criminally investigate or prosecute any alcohol or drug abuse patient.[facility] CenterIn the event this information is protected by the Federal Confidentiality of Alcohol and Drug Abuse Patient Records regulations: The Federal rules restrict any use of the information to criminally investigate or prosecute any alcohol or drug abuse patient.[facility]In the event this information is protected by the Federal Confidentiality of Alcohol and Drug Abuse Patient Records regulations: The Federal rules restrict any use of the information to criminally investigate or prosecute any alcohol or drug abuse patient.[facility] CenterIn the event this information is protected by the Federal Confidentiality of Alcohol and Drug Abuse Patient Records regulations: The Federal rules restrict any use of the information to criminally investigate or prosecute any alcohol or drug abuse patient.[facility] CenterIn the event this information is protected by the Federal Confidentiality of Alcohol and Drug Abuse Patient Records regulations: The Federal rules restrict any use of the information to criminally investigate or prosecute any alcohol or drug abuse patient.[facility] CenterIn the event this information is protected by the Federal Confidentiality of Alcohol and Drug Abuse Patient Records regulations: The Federal rules restrict any use of the information to criminally investigate or prosecute any alcohol or drug abuse patient.[facility] CenterIn the event this information is protected by the Federal Confidentiality of Alcohol and Drug Abuse Patient Records regulations: The Federal rules restrict any use of the information to criminally investigate or prosecute any alcohol or drug abuse patient.[facility]In the event this information is protected by the Federal Confidentiality of Alcohol and Drug Abuse Patient Records regulations: The Federal rules restrict any use of the information to criminally investigate or prosecute any alcohol or drug abuse patient.[facility]In the event this information is protected by the Federal Confidentiality of Alcohol and Drug Abuse Patient Records regulations: The Federal rules restrict any use of the information to criminally investigate or prosecute any alcohol or drug abuse patient.[facility]In the event this information is protected by the Federal Confidentiality of Alcohol and Drug Abuse Patient Records regulations: The Federal rules restrict any use of the information to criminally investigate or prosecute any alcohol or drug abuse patient.[facility]In the event this information is protected by the Federal Confidentiality of Alcohol and Drug Abuse Patient Records regulations: The Federal rules restrict any use of the information to criminally investigate or prosecute any alcohol or drug abuse patient.[facility]In the event this information is protected by the Federal Confidentiality of Alcohol and Drug Abuse Patient Records regulations: The Federal rules restrict any use of the information to criminally investigate or prosecute any alcohol or drug abuse patient.[facility]In the event this information is protected by the Federal Confidentiality of Alcohol and Drug Abuse Patient Records regulations: The Federal rules restrict any use of the information to criminally investigate or prosecute any alcohol or drug abuse patient.[facility]In the event this information is protected by the Federal Confidentiality of Alcohol and Drug Abuse Patient Records regulations: The Federal rules restrict any use of the information to criminally investigate or prosecute any alcohol or drug abuse patient.[facility]In the event this information is protected by the Federal Confidentiality of Alcohol and Drug Abuse Patient Records regulations: The Federal rules restrict any use of the information to criminally investigate or prosecute any alcohol or drug abuse patient.[facility]In the event this information is protected by the Federal Confidentiality of Alcohol and Drug Abuse Patient Records regulations: The Federal rules restrict any use of the information to criminally investigate or prosecute any alcohol or drug abuse patient.[facility]In the event this information is protected by the Federal Confidentiality of Alcohol and Drug Abuse Patient Records regulations: The Federal rules restrict any use of the information to criminally investigate or prosecute any alcohol or drug abuse patient.[facility]In the event this information is protected by the Federal Confidentiality of Alcohol and Drug Abuse Patient Records regulations: The Federal rules restrict any use of the information to criminally investigate or prosecute any alcohol or drug abuse patient.[facility]In the event this information is protected by the Federal Confidentiality of Alcohol and Drug Abuse Patient Records regulations: The Federal rules restrict any use of the information to criminally investigate or prosecute any alcohol or drug abuse patient.[facility]In the event this information is protected by the Federal Confidentiality of Alcohol and Drug Abuse Patient Records regulations: The Federal rules restrict any use of the information to criminally investigate or prosecute any alcohol or drug abuse patient.[facility]In the event this information is protected by the Federal Confidentiality of Alcohol and Drug Abuse Patient Records regulations: The Federal rules restrict any use of the information to criminally investigate or prosecute any alcohol or drug abuse patient.[facility]In the event this information is protected by the Federal Confidentiality of Alcohol and Drug Abuse Patient Records regulations: The Federal rules restrict any use of the information to criminally investigate or prosecute any alcohol or drug abuse patient.[facility]In the event this information is protected by the Federal Confidentiality of Alcohol and Drug Abuse Patient Records regulations: The Federal rules restrict any use of the information to criminally investigate or prosecute any alcohol or drug abuse patient.[facility]In the event this information is protected by the Federal Confidentiality of Alcohol and Drug Abuse Patient Records regulations: The Federal rules restrict any use of the information to criminally investigate or prosecute any alcohol or drug abuse patient.[facility]In the event this information is protected by the Federal Confidentiality of Alcohol and Drug Abuse Patient Records regulations: The Federal rules restrict any use of the information to criminally investigate or prosecute any alcohol or drug abuse patient.[facility]In the event this information is protected by the Federal Confidentiality of Alcohol and Drug Abuse Patient Records regulations: The Federal rules restrict any use of the information to criminally investigate or prosecute any alcohol or drug abuse patient.[facility]In the event this information is protected by the Federal Confidentiality of Alcohol and Drug Abuse Patient Records regulations: The Federal rules restrict any use of the information to criminally investigate or prosecute any alcohol or drug abuse patient.[facility]In the event this information is protected by the Federal Confidentiality of Alcohol and Drug Abuse Patient Records regulations: The Federal rules restrict any use of the information to criminally investigate or prosecute any alcohol or drug abuse patient.[facility]In the event this information is protected by the Federal Confidentiality of Alcohol and Drug Abuse Patient Records regulations: The Federal rules restrict any use of the information to criminally investigate or prosecute any alcohol or drug abuse patient.[facility]In the event this information is protected by the Federal Confidentiality of Alcohol and Drug Abuse Patient Records regulations: The Federal rules restrict any use of the information to criminally investigate or prosecute any alcohol or drug abuse patient.[facility]In the event this information is protected by the Federal Confidentiality of Alcohol and Drug Abuse Patient Records regulations: The Federal rules restrict any use of the information to criminally investigate or prosecute any alcohol or drug abuse patient.[facility]In the event this information is protected by the Federal Confidentiality of Alcohol and Drug Abuse Patient Records regulations: The Federal rules restrict any use of the information to criminally investigate or prosecute any alcohol or drug abuse patient.[facility]In the event this information is protected by the Federal Confidentiality of Alcohol and Drug Abuse Patient Records regulations: The Federal rules restrict any use of the information to criminally investigate or prosecute any alcohol or drug abuse patient.[facility]In the event this information is protected by the Federal Confidentiality of Alcohol and Drug Abuse Patient Records regulations: The Federal rules restrict any use of the information to criminally investigate or prosecute any alcohol or drug abuse patient.[facility]In the event this information is protected by the Federal Confidentiality of Alcohol and Drug Abuse Patient Records regulations: The Federal rules restrict any use of the information to criminally investigate or prosecute any alcohol or drug abuse patient.[facility]In the event this information is protected by the Federal Confidentiality of Alcohol and Drug Abuse Patient Records regulations: The Federal rules restrict any use of the information to criminally investigate or prosecute any alcohol or drug abuse patient.[facility]In the event this information is protected by the Federal Confidentiality of Alcohol and Drug Abuse Patient Records regulations: The Federal rules restrict any use of the information to criminally investigate or prosecute any alcohol or drug abuse patient.[facility]In the event this information is protected by the Federal Confidentiality of Alcohol and Drug Abuse Patient Records regulations: The Federal rules restrict any use of the information to criminally investigate or prosecute any alcohol or drug abuse patient.[facility]In the event this information is protected by the Federal Confidentiality of Alcohol and Drug Abuse Patient Records regulations: The Federal rules restrict any use of the information to criminally investigate or prosecute any alcohol or drug abuse patient.[facility]In the event this information is protected by the Federal Confidentiality of Alcohol and Drug Abuse Patient Records regulations: The Federal rules restrict any use of the information to criminally investigate or prosecute any alcohol or drug abuse patient.[facility]In the event this information is protected by the Federal Confidentiality of Alcohol and Drug Abuse Patient Records regulations: The Federal rules restrict any use of the information to criminally investigate or prosecute any alcohol or drug abuse patient.[facility]In the event this information is protected by the Federal Confidentiality of Alcohol and Drug Abuse Patient Records regulations: The Federal rules restrict any use of the information to criminally investigate or prosecute any alcohol or drug abuse patient.[facility] CenterIn the event this information is protected by the Federal Confidentiality of Alcohol and Drug Abuse Patient Records regulations: The Federal rules restrict any use of the information to criminally investigate or prosecute any alcohol or drug abuse patient.[facility] CenterIn the event this information is protected by the Federal Confidentiality of Alcohol and Drug Abuse Patient Records regulations: The Federal rules restrict any use of the information to criminally investigate or prosecute any alcohol or drug abuse patient.[facility] CenterIn the event this information is protected by the Federal Confidentiality of Alcohol and Drug Abuse Patient Records regulations: The Federal rules restrict any use of the information to criminally investigate or prosecute any alcohol or drug abuse patient.[facility] CenterIn the event this information is protected by the Federal Confidentiality of Alcohol and Drug Abuse Patient Records regulations: The Federal rules restrict any use of the information to criminally investigate or prosecute any alcohol or drug abuse patient.[facility] CenterIn the event this information is protected by the Federal Confidentiality of Alcohol and Drug Abuse Patient Records regulations: The Federal rules restrict any use of the information to criminally investigate or prosecute any alcohol or drug abuse patient.[facility] CenterIn the event this information is protected by the Federal Confidentiality of Alcohol and Drug Abuse Patient Records regulations: The Federal rules restrict any use of the information to criminally investigate or prosecute any alcohol or drug abuse patient.[facility] CenterIn the event this information is protected by the Federal Confidentiality of Alcohol and Drug Abuse Patient Records regulations: The Federal rules restrict any use of the information to criminally investigate or prosecute any alcohol or drug abuse patient.[facility] CenterIn the event this information is protected by the Federal Confidentiality of Alcohol and Drug Abuse Patient Records regulations: The Federal rules restrict any use of the information to criminally investigate or prosecute any alcohol or drug abuse patient.[facility] CenterIn the event this information is protected by the Federal Confidentiality of Alcohol and Drug Abuse Patient Records regulations: The Federal rules restrict any use of the information to criminally investigate or prosecute any alcohol or drug abuse patient.[facility] CenterIn the event this information is protected by the Federal Confidentiality of Alcohol and Drug Abuse Patient Records regulations: The Federal rules restrict any use of the information to criminally investigate or prosecute any alcohol or drug abuse patient.[facility] Reason for Visit (unrecogniz ed section and content) Reason Onset Date Comments community monitoring outreach 06/20/2021 en rollment Reason Comments Patient Question Reason Comments Results Reason Onset Date Comments Refill Request 07/19/2021 Reason Onset Date Comments Refill Request 08/14/2021 Reason Onset Date Comments Community Monitoring Outreach 09/14/2021 In Sight CDM Engagement - Changed to Telephonic Outreaches Reason Comments Refill Request Reason Onset Date Comments Refill Request 10/22/2021 Reason Onset Date Comments Community Monitoring Outreach 11/29/2021 In Sight CD Telephonic Outreach Reason Onset Date Comments Community Monitoring Outreach 01/10/2022 In Sight [facility] Telephonic Outreach Reason Onset Date Comments Refill Request 02/03/2022 Reason Onset Date Comments Refill Request 03/01/2022 Reason Onset Date Comments Community Monitoring Outreach 03/07/2022 [facility] Telephonic Outreach Reason Onset Date Comments Refill Request 03/10/2022 Reason Onset Date Comments Community Monitoring Outreach 04/05/2022 [facility] Telephonic Outreach Reason Onset Date Comments Refill Request 04/14/2022 Reason Onset Date Comments Refill Request 04/15/2022 Reason Onset Date Comments Community Monitoring Outreach 04/21/2022 [facility] Telephonic Outreach Reason Onset Date Comments Community Monitoring Outreach 05/09/2022 [facility] Telephonic Outreach Reason Onset Date Comments Refill Request 05/16/2022 Reason Onset Date Comments Refill Request 06/06/2022 Reason Onset Date Comments Community Monitoring Outreach 06/28/2022 [facility] Telephonic Outreach Reason Comments Medicare Wellness Exam Reason Comments Patient Request Reason Onset Date Comments Community Monitoring Outreach 08/18/2022 [facility] Telephonic Outreach Reason Onset Date Comments Refill Request 08/22/2022 Reason Onset Date Comments Community Monitoring Outreach 08/22/2022 [facility] Telephonic Outreach Reason Comments ED Follow-up Reason Onset Date Comments Community Monitoring Outreach 10/03/2022 [facility] Telephonic Outreach Reason Comments handicap placard renewal rx Reason Onset Date Comments Refill Request 10/18/2022 Reason Comments Diabetic Foot Care Established Patient Reason Comments Outside Imaging Reason Onset Date Comments Refill Request 10/31/2022 Reason Comments F/U 6 months Reason Onset Date Comments Community Monitoring Outreach 01/09/2023 [facility] Telephonic Outreach Reason Comments Patient Update Reason Onset Date Comments Community Monitoring Outreach 01/18/2023 [facility] Telephonic Outreach Reason Onset Date Comments Refill Request 03/03/2023 Reason Comments Forms Reason Onset Date Comments Refill Request 05/05/2023 Reason Onset Date Comments Community Monitoring Outreach 05/24/2023 [facility] Telephonic Outerach Reason Comments appointment reschedule Reason Onset Date Comments Refill Request 06/28/2023 Reason Comments Insulin Request Reason Comments Medicare Wellness Exam Reason Onset Date Comments Community Monitoring Outreach 08/10/2023 CD M Telephonic Outreach Reason Onset Date Comments Community Monitoring Outreach 09/11/2023 CD M Telephonic Outreach Reason Onset Date Comments Community Monitoring Outreach 09/12/2023 CD M Telephonic Outreach Reason Onset Date Comments Refill Request 09/14/2023 Reason Onset Date Comments Refill Request 10/04/2023 Reason Comments ER F/U [facility] Reason Onset Date Comments Transition Of Care 10/10/2023 TCM / OON dc [facility] 10/09/23 Reason Comments Hospital Discharge [facility] Reason Onset Date Comments Transition Of Care 10/17/2023 TCM / OON fol low up Reason Comments Consult Consult/procedure - Urology Reason Onset Date Comments Community Monitoring Outreach 10/24/2023 CD M Telephonic Outreach Reason Onset Date Comments Community Monitoring Outreach 10/25/2023 CD Outreach Telephonic Outreach Reason Comments Outside Urology Reason Onset Date Comments Transition Of Care 10/26/2023 TCM Follow Up Reason Comments Appointment Reason Onset Date Comments Refill Request 11/07/2023 Reason Onset Date Comments Community Monitoring Outreach 11/15/2023 Reason Onset Date Comments Refill Request 11/22/2023 Reason Onset Date Comments Refill Request 11/27/2023 Reason Onset Date Comments CD 12/22/2023 CD Telephonic O utreach Reason Comments Patient Update: [facility] Reason Onset Date Comments Refill Request 12/27/2023 Reason Onset Date Comments Refill Request 01/03/2024 Reason Comments 6 Month Exam Reason Onset Date Comments Community Monitoring Outreach 01/26/2024 CD M Telephonic Outreach Reason Onset Date Comments Refill Request 01/30/2024 Reason Onset Date Comments Refill Request 02/09/2024 Reason Comments ER Discharge Summary Reason Onset Date Comments Refill Request 02/23/2024 Reason Onset Date Comments Community Monitoring Outreach 02/27/2024 Reason Comments Medication Problem Reason Onset Date Comments Refill Request 04/11/2024 Reason Onset Date Comments Refill Request 06/07/2024 Reason Onset Date Comments Refill Request 06/10/2024 Reason Onset Date Comments Refill Request 07/01/2024 Reason Comments Outside Diabetic Eye Exam Reason Comments Medication Request Reason Comments needs new glucose meter and strips Reason Onset Date Comments Refill Request 10/03/2024 Care Teams (unrecognized sec tion and content) Hole Puncher Strap Relationship Specialty Start Date End Date Taye Horan MD [address] [place] [address] PCP - General Family Practice 09/03/18 Hole Puncher Strap Relationship Specialty Start Date End Date Taye Horan MD [address] [place] [address] PCP - General Family Practice 09/03/18 [place] [address] [place] [address] Answering Service Telephone Operator 06/22/21 Hole Puncher Strap Relationship Specialty Start Date End Date Taye Horan MD PCP - General Family Medicine 06/28/21 Hole Puncher Strap Relationship Specialty Start Date End Date Taye Horan MD [address] [place] [address] PCP - General Family Practice 09/03/18 Kourtney Jerry, HÉCTOR [address] [place] [address] Answering Service Telephone Operator 06/22/21 Hole Puncher Strap Relationship Specialty Start Date End Date Taye Horan MD [address] [place] [address] PCP - General Family Practice 09/03/18 Kourtney Jerry, HÉCTOR [address] [place] [address] Answering Service Telephone Operator 06/22/21 Hole Puncher Strap Relationship Specialty Start Date End Date Taye Horan MD [address] [place] [address] PCP - General Family Practice 09/03/18 Radha Pandya, health technical writerAnswering Service Telephone Operator 08/18/21 Hole Puncher Strap Relationship Specialty Start Date End Date Taye Horan MD [address] [place] [address] PCP - General Family Practice 09/03/18 Radha Pandya, health technical writerAnswering Service Telephone Operator 08/18/21 Hole Puncher Strap Relationship Specialty Start Date End Date Taye Horan MD [address] [place] [address] PCP - General Family Practice 09/03/18 Radha Pandya, health technical writerAnswering Service Telephone Operator 08/18/21 Hole Puncher Strap Relationship Specialty Start Date End Date Taye Horan MD [address] [place] [address] PCP - General Family Medicine 09/03/18 Radha Pandya, health technical writerAnswering Service Telephone Operator 08/18/21 Hole Puncher Strap Relationship Specialty Start Date End Date Taye Horan MD [address] [place] [address] PCP - General Family Medicine 09/03/18 Marcelina Garcia, health technical writerAnswering Service Telephone Operator Family Medicine 08/18/21 Hole Puncher Strap Relationship Specialty Start Date End Date Taye Horan MD [address] [place] [address] PCP - General Family Medicine 09/03/18 Marcelina Garcia health technical writerAnswering Service Telephone Operator Family Medicine 01/27/22 Hole Puncher Strap Relationship Specialty Start Date End Date Taye Horan MD [address] [place] [address] PCP - General Family Medicine 09/03/18 Marcelina Garcia, health technical writerAnswering Service Telephone Operator Family Medicine 01/27/22 Hole Puncher Strap Relationship Specialty Start Date End Date Taye Horan MD [address] [place] [address] PCP - General Family Medicine 09/03/18 Marcelina Garcia health technical writerAnswering Service Telephone Operator Family Medicine 01/27/22 Hole Puncher Strap Relationship Specialty Start Date End Date Taye Horan MD [address] [place] [address] PCP - General Family Medicine 09/03/18 Marcelina Garcia RN Answering Service Telephone Operator [facility] 01/27/22 Hole Puncher Strap Relationship Specialty Start Date End Date Taye Horan MD [address] [place] [address] PCP - General Family Medicine 09/03/18 Marcelina Garcia RN Answering Service Telephone Operator [facility] 01/27/22 Hole Puncher Strap Relationship Specialty Start Date End Date Taye Horan MD [address] [place] [address] PCP - General Family Medicine 09/03/18 Marcelina Garcia RN Answering Service Telephone Operator [facility] 01/27/22 Hole Puncher Strap Relationship Specialty Start Date End Date Taye Horan MD [address] [place] [address] PCP - General Family Medicine 09/03/18 Marcelina Garcia RN Answering Service Telephone Operator [facility] 01/27/22 Hole Puncher Strap Relationship Specialty Start Date End Date Taye Horan MD [address] [place] [address] PCP - General Family Medicine 09/03/18 Marcelina Garcia RN Answering Service Telephone Operator [facility] Medicine 01/27/22 Hole Puncher Strap Relationship Specialty Start Date End Date Taye Horan MD [address] [place] [address] PCP - General Family Medicine 09/03/18 Marcelina Garcia health technical writerAnswering Service Telephone Operator [facility] 01/27/22 Team Status: Active Member Role Status Dates Out of [facility] Doctor Family Provider Active Dr. Taye Horan MD Primary Care Provider Active Team Status: Inactive Member Role Status Dates Dr. Taye Horan MD Primary Care Provider Active Dr. Valerie Dunham , DO Emergency Provider Active Hole Puncher Strap Relationship Specialty Start Date End Date Taye Horan MD [address] [place] [address] PCP - General Family Medicine 09/03/18 Marcelina Garcia RN Answering Service Telephone Operator Family Medicine 01/27/22 Hole Puncher Strap Relationship Specialty Start Date End Date Taye Horan MD [address] [place] [address] PCP - General Family Medicine 09/03/18 Marcelina Garcia RN Answering Service Telephone Operator Family Medicine 01/27/22 Hole Puncher Strap Relationship Specialty Start Date End Date Taye Horan MD [address] [place] [address] PCP - General Family Medicine 09/03/18 Marcelina Garcia RN Answering Service Telephone Operator Family Medicine 01/27/22 Hole Puncher Strap Relationship Specialty Start Date End Date Taye Horan MD [address] [place] [address] PCP - General Family Medicine 09/03/18 Marcelina Garcia RN Answering Service Telephone Operator Family Medicine 01/27/22 Hole Puncher Strap Relationship Specialty Start Date End Date Taye Horan MD [address] [place] [address] PCP - General Family Medicine 09/03/18 Marcelina Garcia health technical writerAnswering Service Telephone Operator Family Medicine 01/27/22 Hole Puncher Strap Relationship Specialty Start Date End Date Taye Horan MD [address] [place] [address] PCP - General Family Medicine 09/03/18 Marcelina Garcia RN Answering Service Telephone Operator Family Medicine 01/27/22 Hole Puncher Strap Relationship Specialty Start Date End Date Taye Horan MD [address] [place] [address] PCP - General Family Medicine 09/03/18 Marcelina Garcia RN Answering Service Telephone Operator Family Medicine 01/27/22 Hole Puncher Strap Relationship Specialty Start Date End Date Taye Horan MD [address] [place] [address] PCP - General Family Medicine 09/03/18 Marcelina Garcia RN Answering Service Telephone Operator Family Medicine 01/27/22 Hole Puncher Strap Relationship Specialty Start Date End Date Taye Horan MD [address] [place] [address] PCP - General Family Medicine 09/03/18 Marcelina Garcia health technical writerAnswering Service Telephone Operator Family Medicine 01/27/22 Hole Puncher Strap Relationship Specialty Start Date End Date Taye Horan MD [address] [place] [address] PCP - General Family Medicine 09/03/18 Marcelina Garcia RN Answering Service Telephone Operator Family Medicine 01/27/22 Hole Puncher Strap Relationship Specialty Start Date End Date Taye Horan MD [address] [place] [address] PCP - General Family Medicine 09/03/18 Marcelina Garcia health technical writerAnswering Service Telephone Operator Family Medicine 01/27/22 Hole Puncher Strap Relationship Specialty Start Date End Date Taye Horan MD [address] [place] [address] PCP - General Family Medicine 09/03/18 Marcelina Garcia, health technical writerAnswering Service Telephone Operator Family Medicine 01/27/22 Bobbi Barrera, HÉCTOR [address] [place] [address] Primary Care Finance Business Partner 10/10/23 Hole Puncher Strap Relationship Specialty Start Date End Date Taye Horan MD [address] [place] [address] PCP - General Family Medicine 09/03/18 Marcelina Garcia RN Answering Service Telephone Operator Family [facility] 01/27/22 Bobbi Barrera, HÉCTOR [address] [place] [address] Primary Care Finance Business Partner 10/10/23 Hole Puncher Strap Relationship Specialty Start Date End Date Taye Horan MD [address] [place] [address] PCP - General Family Medicine 09/03/18 Marcelina Garcia RN Answering Service Telephone Operator Family [facility] 01/27/22 Bobbi Barrera, HÉCTOR [address] [place] [address] Primary Care Finance Business Partner 10/10/23 Hole Puncher Strap Relationship Specialty Start Date End Date Taye Hroan MD [address] [place] [address] PCP - General Family Medicine 09/03/18 Marcelina Garcia health technical writerAnswering Service Telephone Operator Family [facility] 01/27/22 Bobbi Barrera, HÉCTOR [address] [place], [place] [id number] [phone] Primary Care Finance Business Partner 10/10/23 Hole Puncher Strap Relationship Specialty Start Date End Date Taye Horan MD [address] [place] [address] PCP - General Family Medicine 09/03/18 Marcelina Garcia RN Answering Service Telephone Operator Family [facility] 01/27/22 Hole Puncher Strap Relationship Specialty Start Date End Date Taye Horan MD [address] [place] [address] PCP - General Family Medicine 09/03/18 Marcelina Garcia, health technical writerAnswering Service Telephone Operator Family Medicine 01/27/22 Hole Puncher Strap Relationship Specialty Start Date End Date Taye Horan MD [address] [place] [address] PCP - General Family Medicine 09/03/18 Marcelina Garcia RN Answering Service Telephone Operator Family Medicine 01/27/22 Hole Puncher Strap Relationship Specialty Start Date End Date Taye Horan MD [address] [place] [address] PCP - General Family Medicine 09/03/18 Marcelina Garcia RN Answering Service Telephone Operator Family Medicine 01/27/22 Hole Puncher Strap Relationship Specialty Start Date End Date Taye Horan MD [address] [place] [address] PCP - General Family Medicine 09/03/18 Marcelina Garcia RN Answering Service Telephone Operator Family Medicine 01/27/22 Hole Puncher Strap Relationship Specialty Start Date End Date Taye Horan MD [address] [place] [address] PCP - General Family Medicine 09/03/18 Marcelina Garcia RN Answering Service Telephone Operator Family Medicine 01/27/22 Hole Puncher Strap Relationship Specialty Start Date End Date Taye Horan MD [address] [place] [address] PCP - General Family Medicine 09/03/18 Marcelina Garcia health technical writerAnswering Service Telephone Operator Family Medicine 01/27/22 Melissa Bourne APRN.HOTEL ROOM ATTENDANT [address] [place] [address] [facility] 02/24/24 Judi Rice PA-C [address] [place] [address] [employer] [facility] 02/24/24 Hole Puncher Strap Relationship Specialty Start Date End Date Taye Horan MD [address] [place] [address] PCP - General Family Medicine 09/03/18 Melissa Bourne APRN.HOTEL ROOM ATTENDANT [address] [place] [address] [facility] 02/24/24 Judi Rice PA-C [address] [place] [address] [facility] 02/24/24 Hole Puncher Strap Relationship Specialty Start Date End Date Taye Horan MD [address] [place] [address] PCP - General Family Medicine 09/03/18 Melissa Bourne APRN.HOTEL ROOM ATTENDANT [address] [place] [address] Cotton [employer]eder Family [facility] 02/24/24 Judi Rice PA-C [address] [place] [address] [facility] Family Medicine 02/24/24 Team Status: Active Member Role Status Dates Dr. Taye Horan MD Primary Care Provider Active Team Status: Inactive Member Role Status Dates Dr. Taye Horan MD Primary Care Provider Active Start: February 18, 2024 End: February 18, 2024 Dr. Chava Cao MD Attending Provider Active Start: February 18, 2024 End: February 18, 2024 Dr. Chava Cao MD Emergency Provider Active Start: February 18, 2024 End: February 18, 2024 Team Status: Inactive Member Role Status Dates Dr. Taye Horan MD Primary Care Provider Active Start: June 16, 2024 End: June 16, 2024 Dr. Jamie Correa DO Emergency Provider Active Start : June 16, 2024 End: June 16, 2024 Hole Puncher Strap Relationship Specialty Start Date End Date Taye Horan MD [address] [place] [address] PCP - General Family Medicine 09/03/18 Melissa Bourne, HINA.HOTEL ROOM ATTENDANT [address] [place] [address] [facility] 02/24/24 Judi Rice PA-C [address] [place] [address] [facility]/24/[facility] Hole Puncher Strap Relationship Specialty Start Date End Date Taye Horan MD [address] [place] [address] PCP - General Family Medicine 09/03/18 Melissa Bourne, HINA.HOTEL ROOM ATTENDANT [facility] [place] [address] [facility] 02/24/24 Judi Rice PA-C [address] [facility] [place] [address] [facility] 02/24/24 Hole Puncher Strap Relationship Specialty Start Date End Date Taye Horan MD [facility] [place] [address] PCP - General Family Medicine 09/03/18 Melissa Bourne, HINA.HOTEL ROOM ATTENDANT [address] [place] [address] [facility] 02/24/24 Judi Rice PA-C [address] [place] [address] [facility] 02/24/24 Hole Puncher Strap Relationship Specialty Start Date End Date Taye Horan MD [address] [place] [address] PCP - General Family Medicine 09/03/18 Melissa Bourne, HINA.HOTEL ROOM ATTENDANT [address] [place] [address] [facility] 08/19/24 Judi Rice PA-C [address] [place] [address] [facility] 08/19/24 Hole Puncher Strap Relationship Specialty Start Date End Date Taye Horan MD [address] [place] [address] PCP - General Family Medicine 09/03/18 Melissa Bourne, SALVAGE GRINDER.HOTEL ROOM ATTENDANT [address] [place] [address] [facility] 08/19/24 Judi Rice PA-C [address] [place] [address] [facility] 08/19/24 Hole Puncher Strap Relationship Specialty Start Date End Date Taye Horan MD [address] [place], [place] [id number] PCP - General Family Medicine 09/03/18 Melissa Bourne APRN.CNP [address] [place] [address] [employer] [facility] 08/19/24 Judi Rice PA-C [address] [place] [address] [facility] 08/19/24 Scheduled Active and Recently Administ ered Medications (unrecognized section and content) Medication Order 06/26/2021 06/27/2021 06/28/2021 sodium chloride flush 0.9 % injection 5-40 mL 5-40 mL, IntraVENous, EVERY 12 HOURS SCHEDULED (2 times per day), First dose on Mon06/28/21 at 0900, Until Discontinued, For Line Patency: Peripheral IV = 5 mL; Midline or Central Line = 10 mL/lumen. If following IV push medication, administer flush at same rate as the IV push. Flush volume is determined by type of infusion therapy being given. For non-viscous solutions use: Peripheral IV = 5 mL Midline or Central Line = 10 mL/lumen For viscous solutions (i.e. blood components, parenteral nutrition, contrast media, or after obtaining blood sample) use: Peripheral IV = 10 mL Midline or Central Line = 20 mL/lumen, Pre-procedure(GI) 0900 (Due)2100 (Due) Continuous Medication Order 06/26/2021 06/27/2021 06/28/2021 0.9 % sodium chloride infusion IntraVENous, at 75 mL/hr, CONTINUOUS, Starting on Mon06/28/21 at 0730, Pre-procedure(GI) 0752 (New Bag - Prov ider: HINA Guerra CRNA)0820 (Anesthesia Volume Adjustment - Provider: HINA Guerra CRNA) PRN Medication Order 06/26/2021 06/27/202106/2806/28/2021 0.9 % sodium chloride infusion 25 mL, IntraVENous, at 100 mL/hr, PRN, If patient receiving piggyback infusions without ordered maintenance IV fluids or with frequent/long duration piggyback infusions, Starting on Mon06/28/21 at 0706, Administer at the same rate as the piggyback being infused., Pre-procedure(GI) sodium chloride flush 0.9 % injection 5-40 mL 5-40 mL, IntraVENous, PRN, Starting on Mon06/28/21 at 0706, Until Discontinued, Line Care, After every IV line use, For Line Patency: Peripheral IV = 5 mL; Midline or Central Line = 10 mL/lumen. If following IV push medication, administer flush at same rate as the IV push. Flush volume is determined by type of infusion therapy being given. For non-viscous solutions use: Peripheral IV = 5 mL Midline or Central Line = 10 mL/lumen For viscous solutions (i.e. blood components, parenteral nutrition, contrast media, or after obtaining blood sample) use: Peripheral IV = 10 mL Midline or Central Line = 20 mL/lumen, Pre-procedure(GI) FOR RECORDS PERTAINING TO PATIENTS WHO ARE OR HAVE BEEN ENROLLED IN A CHEMICAL DEPENDENCY/SUBSTANCEABUSE PROGRAM, SOME INFORMATION MAY BE OMITTED. This clinical summary was aggregated from multiple sources. Caution should be exercised in using it in the provision of clinical care. This summary normalizes information from multiple sources, and as a consequence, information in this document may materially change the coding, format and clinical context of patient data. In addition, data may be omitted in some cases. CLINICAL DECISIONS SHOULD BE BASED ON THE PRIMARY CLINICAL RECORDS. [employer] provides no warranty or guarantee of the accuracy or completeness of information in this document.
[2024-11-01 01:15] VITALS: BP 134/60; PULSE 90; RESP 18; TEMP 36.4; O2SAT 98
== END 2024-11-01 01:16 | disposition home or self-care (01) ==
PROVIDERS: Emergency Provider Emergency Medicine; PCP Family Medicine; Visit Provider Emergency Medicine
DX: E11.649 Type 2 diabetes mellitus with hypoglycemia without coma (principal); E11.22 Type 2 diabetes mellitus with diabetic chronic kidney disease; Z79.4 Long term (current) use of insulin; I12.9 Hypertensive chronic kidney disease with stage 1 through stage 4 chronic kidney disease, or unspecified chronic kidney disease; N18.9 Chronic kidney disease, unspecified; E78.5 Hyperlipidemia, unspecified; F17.290 Nicotine dependence, other tobacco product, uncomplicated; Z79.82 Long term (current) use of aspirin; Z79.84 Long term (current) use of oral hypoglycemic drugs; Z79.899 Other long term (current) drug therapy; Z86.16 Personal history of COVID-19
CPT/HCPCS: 71045; 80048; 80076; 82962; 83690; 85025; 99282; A4216

== ENCOUNTER → 2024-12-17 | Outpatient (CLI) | payer MEDICARE, OTHER, SELFPAY ==
[2024-12-17 12:14] LABS: Hematocrit 35.4 % (40-54); Hemoglobin 11.5 g/dL (13.0-16.5); Mean Corp Hgb Conc 32.5 g/dL (32-36); Mean Corpuscular Volume 81.9 fL (80-94); Mean Platelet Vol. 10.1 fl (6.2-12.0); Platelet Count 433 K/mm3 (150-450); RBC Distribution Width CV 16.5 % (11.6-14.6); RBC Distribution Width SD 49.3 fl (35.1-43.9); Red Blood Count 4.32 M/mm3 (4.6-6.2); White Blood Count 10.7 K/mm3 (4.4-11.0)
[2024-12-17 15:03] LABS: Anion Gap 11 (5-15); BUN 18 mg/dL (4-19); BUN/Creat Ratio 11.1 RATIO (10-20); Calcium,Total 9.3 mg/dL (7.6-11.0); Carbon Dioxide 21.9 mmol/L (21.0-32.0); Chloride 107 mmol/L (98-108); Glucose 99 mg/dL (70-99); PSA,Total - Annual Screen 1.93 ng/mL (0.02-4.00); Potassium 4.8 mmol/L (3.3-5.1)
== END | disposition home or self-care (01) ==
LOC: LAB 11:46
PROVIDERS: PCP Family Medicine; Referring Provider Urology; Visit Provider Urology
DX: R11.2 Nausea with vomiting, unspecified (principal); Z12.5 Encounter for screening for malignant neoplasm of prostate
CPT/HCPCS: 36415; 80048; 84153; 85027; G0103